=== PATIENT | male | born 1950 | race Caucasian/White ===

== ENCOUNTER → 2019-05-27 13:18 | Outpatient (CLI) | payer MEDICARE, SELFPAY ==
--- NOTE | 2019-05-27 13:26 | US_ITS ---
US Kidney CLINICAL INDICATION: Evaluate right renal lesions that were seen on recent CT scan ITS.REASON: RT KIDNEY LESION X2 ORDERING PHYSICIAN: Jeremy Cazares MD PATIENT AGE: 68 years Comparison: None FINDINGS: The right kidney is 12 x 7 x 5 cm. There is a 5 x 4 cm cyst along the upper pole. A 2 cm cyst is present along the mid polar region posteriorly along with an additional smaller cyst at this area at 9 mm. These areas correspond to the CT abnormalities. No hydronephrosis. The left kidney is 11 x 6 x 5 cm and contains a 1.5 cm cyst laterally. No hydronephrosis. IMPRESSION: Right renal lesions correspond to benign-appearing cysts by ultrasound
--- NOTE | 2019-05-27 13:27 | CT_ITS ---
CT chest wo con HISTORY: Colon cancer, evaluate for metastatic disease ITS.REASON: RECTOSIGMOID CA ORDERING PHYSICIAN: Jeremy Cazares MD PATIENT AGE: 68 years COMPARISON: None Technique: Axial images were obtained. Sagittal, and coronal reformatted images are also generated and reviewed. All CT scans at the facility use one or more dose reduction, viz: automated exposure control, ma/kV adjustment per patient size (including targeted exams where dose is matched to indication, i.e. head), or iterative reconstruction technique. FINDINGS: Atherosclerotic calcification is present within the thoracic aorta and coronary arteries. No mediastinal or hilar mass or adenopathy. There are scattered small nodes within the mediastinum. No mediastinal or hilar mass or adenopathy is evident. There are centrilobular emphysematous changes. No lobar consolidation or collapse. There is mild diffuse bronchial thickening. No suspicious pulmonary nodules. No effusions. There are few small axillary lymph nodes. No acute bony findings. No bony destructive process evident. There is mild bilateral gynecomastia. Upper abdominal images show a hyperdense nodule in the right kidney at 2 cm representing a renal cyst along with an additional 4 cm cyst of the right kidney posteriorly. A nonobstructing 3 mm stone in the upper pole the right kidney. IMPRESSION: 1. No convincing evidence of metastatic disease. 2. COPD/centrilobular emphysema. 3. Coronary artery calcifications 4. Right renal cysts with nonobstructing right nephrolithiasis
== END ==
PROVIDERS: PCP Family Medicine; Visit Provider Surgery
DX: C19 Malignant neoplasm of rectosigmoid junction (principal); N28.9 Disorder of kidney and ureter, unspecified; Z03.89 Encounter for observation for other suspected diseases and conditions ruled out
CPT/HCPCS: 71250; 76770

== ENCOUNTER 2020-07-22 08:27 | Emergency (ER) | payer MEDICARE, SELFPAY ==
[2020-07-22 08:30] VITALS: BP 188/101; PULSE 158; RESP 20; TEMP 37.4; O2SAT 98; BMI 25.4
--- NOTE | 2020-07-22 08:38 | HMH.EDGENADL ---
ED Disposition Clinical Impression: Urinary retention Urinary tract infection Qualifiers: Urinary tract infection type: site unspecified Hematuria presence: without hematuria Qualified Code(s): N39.0 - Urinary tract infection, site not specified Leukocytosis Qualifiers: Leukocytosis type: unspecified Qualified Code(s): D72.829 - Elevated white blood cell count, unspecified Disposition: Home, Self-Care Condition on Discharge: Fair Instructions: How to Care for Your Rodriguez Catheter -- Male, DI for Urinary Tract Infection (UTI) Additional Instructions: You were seen on an emergency basis. It is very important that you follow up with your primary care provider and/or specialist as we discussed within 2 days. All labs and imaging were obtained and interpreted here to rule out life threatening emergencies, but your final results should be reviewed by your primary doctor at your follow up appointment. Please return to the emergency department if any of your symptoms worsen, or if they do not improve as we discussed. Please follow-up in urology clinic as we discussed. Prescriptions: Cefdinir [Omnicef 300mg Capsule] 300 mg PO BID #20 cap Prescription Printed Referrals: Jair Molina MD [Primary Care Provider] - - Critical Care Critical Care Time: No Attestation: On , the high probability of a clinically significant, sudden or life threatening deterioration of the following system(s) required my full and direct attention, intervention and personal management. The time I documented below is in addition to time spent performing reported procedures but includes the following listed in this critical care notation. Medical Decision Making - Medical Records Medical records reviewed: Yes: I reviewed the patient's medical records. - Osmel Inquiry Pt receiving controlled substance: No Vital Signs: 07/22/20 08:30 Temperature 99.3 F Temperature Source Oral Pulse Rate [Right Radial] 158 H Respiratory Rate 20 Blood Pressure [Right Arm] 188/101 H Blood Pressure Mean [Right Arm] 130 Blood Pressure Source [Right Arm] Manual Cuff/ Doppler Blood Pressure Position [Right Arm] Standing 02 Sat by Pulse Oximetry 98 Oxygen Delivery Method Room Air - Lab Data Lab results reviewed: Yes: I reviewed the patient's lab results. Lab Results 07/22/20 09:30: WBC 18.3 H, RBC 5.24, Hgb 17.9, Hct 49.3, MCV 94.0, MCH 34.1 H, MCHC 36.3 H, RDW 13.9, Plt Count 226, MPV 7.8, Neut % (Auto) 88.5 H, Lymph % (Auto) 5.4 L, [place] % (Auto) 5.6, Eos % (Auto) 0.2, Baso % (Auto) 0.2, Neut # (Auto) 16.2 H, Lymph # (Auto) 1.0, [place] # (Auto) 1.0, Eos # (Auto) 0.0, Baso # (Auto) 0.1, Total Counted 100, Neutrophils % (Manual) 86 H, Lymphocytes % (Manual) 10, Monocytes % (Manual) 4, Platelet Estimate Normal, RBC Morphology Normal 07/22/20 09:30: Sodium 139, Potassium 3.7, Chloride 99, Carbon Dioxide 23, Anion Gap 20.7 H, BUN 10, Creatinine 0.70, Estimated Creat Clear 66, Estimated GFR 112, Est GFR ( Amer) 136, Glucose 174 H, Calcium 10.5 H, Total Bilirubin 2.7 H, AST 61 H, ALT 72, Alkaline Phosphatase 128 H, Total Protein 9.4 H, Albumin 5.0, Globulin 4.4 H, Albumin/Globulin Ratio 1.1 07/22/20 09:39: Urine Color Yellow, Urine Appearance Clear, Urine pH 6.0, Ur Specific Mcgregor 1.025, Urine Protein 2+, Urine Glucose (UA) Negative, Urine Ketones Negative, Urine Blood Negative, Urine Nitrate Negative, Urine Bilirubin Negative, Urine Urobilinogen 1.0, Ur Leukocyte Esterase Negative, Urine RBC None, Urine WBC 3-5, Ur Squamous Epith Cells Occasional, Amorphous Sediment 2+, Urine Bacteria 2+, Urine Mucus 1+ Result diagrams: 07/22/20 09:30 07/22/20 09:30 Orders (Tests/Meds): ORDERS Category Date Time Status Lactic Acid Stat Lab 07/22/20 10:09 Received Blood Culture Stat Micro 07/22/20 10:09 Received Urine Culture Stat Micro 07/22/20 09:39 Received Medical Decision Narrative: 69-year-old male presenting with inability to urinate. CT of the abdo
--- NOTE | 2020-07-22 08:48 | CT_ITS ---
PROCEDURE: CT ABDOMEN PELVIS WO CON CLINICAL INDICATION: R/O kidney stone COMPARISON: CT ABDPELW CT abdomen pelvis w con from 05/02/2019 TECHNIQUE: Axial images obtained with sagittal and coronal reformats. All CT scans at the facility use one or more dose reduction, viz: automated exposure control, ma/kV adjustment per patient size (including targeted exams where dose is matched to indication, i.e. head), or iterative reconstruction technique. FINDINGS: Lower thorax: No acute finding ABDOMEN: Liver: No masses or biliary dilatation. Gallbladder: Nondistended. No radio opaque stones. Pancreas: Cecectomy Spleen: The spleen is normal size and there are several small calcifications. Adrenals: unremarkable Kidneys/ureters: The kidneys are normal in size and there are 2 small exophytic cyst upper pole right kidney the smaller of the 2 cyst shows slightly increased density suggesting could be a hemorrhagic cyst. The larger of the 2 cysts measures 4.3 by 4.3 by 4.3 cm. There is mild vascular calcification in both renal arteries. There are 2 tiny 1 mm or less nonobstructing calculi left kidney and no ureteral calculi are seen and there is no obstructive uropathy of either kidney. There is moderate stranding of Gerotas fascia around both kidneys somewhat nonspecific not unexpected at this age. ABDOMEN & PELVIS: Stomach bowel: There is a small sliding hiatal hernia. The stomach is normal. The duodenal sweep and small bowel appear normal. There is a moderate amount stool in the ascending and transverse colon and proximal descending colon. There are surgical sutures in the upper rectum presumably from previous anastomotic surgery. Peritoneum: No abnormal fluid collections. No obvious inflammatory changes. No free air. Lymph nodes: No enlarged lymph nodes apparent. Vasculature: There is prominent diffuse arthrosclerotic calcification of the abdominal aorta and proximal common iliac arteries but there is no aneurysm. Bones: There are mild degenerate changes lower thoracic PELVIS: Reproductive: Spine. Bladder: The urinary bladder is moderately distended with urine, the prostate is moderately to markedly enlarged and shows prominent extrinsic impression on the base of the urinary bladder and very likely is the cause of the patient's difficulty urinating. Prostate measures 6.7 x 5.2 x 5.9 cm. Appendix: Unremarkable. No distention or periappendiceal phlegmonous change. IMPRESSION: Enlarged prostate showing marked extrinsic indentation of the base of the urinary bladder, benign-appearing exophytic cortical cysts right kidney, there is no obstructive uropathy of either kidney Dictated by: Dr. Kong Enriquez MD 07/22/2020 09:55 Dr. Kong Enriquez MD in [place] 07/22/2020 09:55
--- NOTE | 2020-07-22 08:55 | PC.NURSE ---
Pt attempted to provide a clean catch urine sample prior to matt placement, but pt was unsuccessful. Matt will be placed after pt gets CT
--- NOTE | 2020-07-22 08:58 | PC.NURSE ---
pt going to ct
--- NOTE | 2020-07-22 09:01 | PC.NURSE ---
Pt to Rad. Nolasco was unsuccessful x2 on iv insertion. This nurse will attempt to gain access once pt returns to ED
[2020-07-22 09:43] LABS: Basophils # 0.1 K/mm3 (0-0.2); Basophils % 0.2 % (0.1-2.0); Eosinophils % 0.2 % (0.1-12.0); Hematocrit 49.3 % (42.0-52.0); Hemoglobin 17.9 g/dL (14.1-18.0); Lymphocytes % 5.4 % (10-50); Mean Corpuscular HGB Conc 36.3 g/dL (31.8-35.4); Mean Corpuscular Hemoglobin 34.1 pg (27.0-31.2); Mean Platelet Volume 7.8 fl (7.4-10.4); Monocytes % 5.6 % (1.7-9.3); Neutrophils # 16.2 K/mm3 (1.8-7.8); Neutrophils % 88.5 % (37.0-80.0); Platelet Count 226 K/mm3 (142-424); Red Blood Count 5.24 M/mm3 (4.60-6.20); Red Cell Distribution Width 13.9 % (11.5-17.5); White Blood Count 18.3 K/mm3 (4.8-10.8)
[2020-07-22 09:43] LABS: Microscopic, Urine URINE MICROSCOPIC (MICROSCOPIC)
[2020-07-22 09:44] LABS: Appearance,Urine CLEAR (Clear); Bilirubin,Urine Negative (Negative); Blood, Urine Negative (Negative); Color,Urine YELLOW (Yellow); Glucose,Urine (UA) Negative (Negative); Ketones,Urine Negative (Negative); Leukocyte Esterase,Urine Negative (Negative); Nitrate,Urine Negative (Negative); Protein,Urine 2+ (Negative); Specific Gravity, Urine 1.025 (1.005-1.030)
[2020-07-22 09:45] LABS: MANUAL DIFFERENTIAL MANUAL DIFFERENTIAL (MANUAL DIFF)
[2020-07-22 09:46] LABS: Chloride 99 mmol/L (98-107); Potassium 3.7 mmoL/L (3.5-5.1); Sodium 139 mmol/L (136-145)
[2020-07-22 09:48] LABS: Blood Urea Nitrogen 10 mg/dl (9-20); Creatinine Clearance Estimated 66 mL/min (50-200); Estimated Glomerular Filt Rate 112 ml/min (>60); GFR (African American) 136 ML/MIN (>60)
--- NOTE | 2020-07-22 09:48 | PC.NURSE ---
Pt states that he has relief in the suprapubic pressure he was feeling prior to matt placement. Pt had 500cc urine out upon matt placement.
[2020-07-22 09:49] LABS: Alanine Aminotransferase 72 U/L (12-78); Albumin/Globulin Ratio 1.1 (1.1-1.8); Alkaline Phosphatase 128 U/L (38-126); Anion Gap 20.7 mEq/L (5-15); Aspartate Amino Transferase 61 U/L (17-59); Bilirubin,Total 2.7 mg/dl (0.2-1.3); Calcium 10.5 mg/dl (8.4-10.2); Carbon Dioxide 23 mmol/L (22.0-30.0); Globulin 4.4 g/dL (1.3-3.2); Glucose 174 mg/dl (74-100); Total Protein,Serum 9.4 g/dl (6.3-8.2)
[2020-07-22 09:54] LABS: Amorphous Sediment,Urine 2+ /lpf; Bacteria,Urine 2+ /lpf; Mucus,Urine 1+ /lpf; Squamous Epithelial Cell,Urine Occasional #/hpf (0-5)
[2020-07-22 10:02] LABS: Lymphocytes % 10 % (10-50); Monocytes % 4 % (2-9); Neutrophils % 86 % (42-76); Platelet Estimate Normal; RBC Morphology Normal; Total Cells Counted 100
[2020-07-22 10:26] LABS: Lactic Acid 1.7 mmol/L (0.7-2.1)
[2020-07-22 10:55] VITALS: BP 132/97; PULSE 81; RESP 18; TEMP 37.2; O2SAT 97
== END 2020-07-22 11:03 | disposition home or self-care (01) ==
PROVIDERS: Emergency Provider Physician Assistant; PCP Family Medicine
DX: N30.00 Acute cystitis without hematuria (principal); D72.829 Elevated white blood cell count, unspecified; J44.9 Chronic obstructive pulmonary disease, unspecified; K21.9 Gastro-esophageal reflux disease without esophagitis; E78.5 Hyperlipidemia, unspecified; I10 Essential (primary) hypertension; Z79.899 Other long term (current) drug therapy; Z90.49 Acquired absence of other specified parts of digestive tract; N40.0 Benign prostatic hyperplasia without lower urinary tract symptoms; Z85.46 Personal history of malignant neoplasm of prostate
CPT/HCPCS: 74176; 80053; 81001; 83605; 85007; 85025; 87040; 87086; 87088; 87186; 99284

== ENCOUNTER 2020-07-23 13:52 | Emergency (ER) | payer MEDICARE, SELFPAY ==
[2020-07-23 14:34] VITALS: BP 134/84; PULSE 121; RESP 19; TEMP 36.8; O2SAT 98; BMI 25.4
--- NOTE | 2020-07-23 14:43 | HMH.EDUTC ---
[facility] [place] Clinical Impression: Urinary retention UTI (urinary tract infection) Qualifiers: Urinary tract infection type: site unspecified Hematuria presence: without hematuria Qualified Code(s): N39.0 - Urinary tract infection, site not specified Disposition: Home, Self-Care Condition on Discharge: Good Instructions: How to Care for Your Matt Catheter -- Male Additional Instructions: Follow up with Dr. Molina as scheduled tomorrow. Follow up with urology as referred. You will need to call their office and schedule an appointment. RETURN OR GO TO THE ER FOR ANY WORSENING SYMPTOMS OR CONCERNS Referrals: Jair Molina MD [Primary Care Provider] - Asad Ortiz MD [Staff Physician] - Time of Disposition: 14:56 Medical Decision Making - Medical Records Medical records reviewed: No: I reviewed the patient's medical records. - Osmel Inquiry Pt receiving controlled substance: No Vital Signs: 07/23/20 14:34 07/23/20 15:00 Temperature 98.2 F 98.2 F Temperature Source Oral Pulse Rate 121 H Pulse Rate [Right Brachial] 121 H Respiratory Rate 19 19 Blood Pressure 134/84 Blood Pressure [Right Arm] 134/84 Blood Pressure Mean [Right Arm] 100 Blood Pressure Source [Right Arm] Automatic Cuff Blood Pressure Position [Right Arm] Sitting 02 Sat by Pulse Oximetry 98 Oxygen Delivery Method Room Air Medical Decision Narrative: I assessed and made sure the f/c is draining properly. I explained to him that if we take the catheter out today then he will likely get unable to urinate again soon and have to come back in and have the catheter reinserted. So it is best to leave it in for now. He is verbally agreeable to this plan. [facility] [place] - General Stated complaint: catheter problems Time Seen by Provider: 07/23/20 14:35 Mode of Arrival: Ambulatory Source of Information: Patient Limitations: No Limitations Description of Symptoms (Recalled from Triage Doc. by RN): PATIENT HAD URINARY CATHETER PLACE IN ER YESTERDAY FOR UTI. STATES CATHETER IS LEAKING AND WANTS IT REMOVED HEENT Symptoms (Recalled from RN notes): No Resp Symptoms (Recalled from RN notes): No Skin Symptoms (Recalled from RN notes): No MS Symptoms (Recalled from RN notes): No Functional Status (Recalled from RN notes): WNL - History of Present Illness Provider Complaint: He is here wanting to have a matt cath removed. He was in the ER yesterday with complaints of being unable to void. He was diagnosed with a UTI and an enlarged prostate. A matt cath was inserted. He has f/u appt tomorrow with Dr. Molina and the er referred him to urology. - Related Data Home Medications Medication Instructions Recorded Confirmed Omeprazole [Omeprazole 20mg 20 mg PO DAILY 04/27/19 05/02/19 Capsule] Simvastatin 40 mg PO DAILY 04/27/19 05/02/19 Theophylline Anhydrous [Theochron] 300 mg PO DAILY 04/27/19 05/02/19 lisinopriL [Lisinopril 20mg Tab] 20 mg PO DAILY 04/27/19 05/02/19 Previous Rx's Medication Instructions Recorded Cefdinir [Omnicef 300mg Capsule] 300 mg PO BID #20 cap 07/22/20 Allergies Allergy/AdvReac Type Severity Reaction Status Date / Time No Known Allergies Allergy Verified 05/02/19 07:03 - Worker's Comp Is this a Worker's Comp case?: No [facility] History - Hepatitis A Screen Drug use history?: No High risk sexual behaviors?: No History of sexually transmitted infection?: No Currently employed?: No Childcare worker?: No Do you have indoor plumbing?: Yes Do you have electricity?: Yes Attestation statement:: This patient has been screened for Hepatitis A risk factors. I have reviewed the patient's past medical history: Yes Medical History: Reports:: Cancer (COLON), Chronic Obstructive Pulmonary Disease (COPD), Gastroesophageal Reflux Disease(GERD), Hyperlipidemia, Hypertension Denies:: Diabetes Mellitus Type 1, Diabetes Mellitus Type 2, Internal Pacemaker, Lung Disease, Seizures Other Surgeries
[2020-07-23 15:00] VITALS: BP 134/84; PULSE 121; RESP 19; TEMP 36.8; O2SAT 98
== END 2020-07-23 15:02 | disposition home or self-care (01) ==
PROVIDERS: Emergency Provider Nurse Practitioner Family; PCP Family Medicine
DX: T83.511A Infection and inflammatory reaction due to indwelling urethral catheter, initial encounter (principal); N40.1 Benign prostatic hyperplasia with lower urinary tract symptoms; K21.9 Gastro-esophageal reflux disease without esophagitis; I10 Essential (primary) hypertension; J44.9 Chronic obstructive pulmonary disease, unspecified; E78.5 Hyperlipidemia, unspecified; Z90.49 Acquired absence of other specified parts of digestive tract; Z87.891 Personal history of nicotine dependence; Z79.899 Other long term (current) drug therapy
CPT/HCPCS: G0463; 99201

== ENCOUNTER 2020-11-21 12:51 | Outpatient (CLI) | payer MEDICARE, SELFPAY ==
[2020-11-21 13:12] VITALS: BMI 25.7
[2020-11-21 13:29] LABS: Microscopic, Urine URINE MICROSCOPIC (MICROSCOPIC)
[2020-11-21 13:35] LABS: Appearance,Urine CLEAR (Clear); Bilirubin,Urine Negative (Negative); Blood, Urine TRACE-I (Negative); Color,Urine YELLOW (Yellow); Glucose,Urine (UA) Negative (Negative); Ketones,Urine Negative (Negative); Leukocyte Esterase,Urine Negative (Negative); Nitrate,Urine Negative (Negative); Protein,Urine 1+ (Negative); Squamous Epithelial Cell,Urine Occasional #/hpf (0-5); Urobilinogen,Urine 0.2 EU/dl (0.2)
== END 2020-11-21 13:30 | disposition home or self-care (01) ==
LOC: INF 12:53
PROVIDERS: PCP Family Medicine; Visit Provider Family Medicine
DX: R33.9 Retention of urine, unspecified (principal)
CPT/HCPCS: 81001; G0463

== ENCOUNTER 2023-06-20 02:15 | Emergency (ER) | payer MEDICARE, SELFPAY ==
[2023-06-20 02:16] VITALS: BP 210/105; PULSE 110; RESP 18; TEMP 36.5; O2SAT 98; BMI 22.3
--- NOTE | 2023-06-20 02:26 | PC.NURSE ---
DR PETIT AT BEDSIDE
--- NOTE | 2023-06-20 02:36 | CT_ITS ---
PROCEDURE INFORMATION: Exam: CT Abdomen And Pelvis With Contrast Exam date and time: 06/20/2023 3:27 AM Age: 72 years old Clinical indication: Mass, lump, or swelling; Additional info: Previous llq mass, hematochezia TECHNIQUE: Imaging protocol: Computed tomography of the abdomen and pelvis with contrast. Radiation optimization: All CT scans at this facility use at least one of these dose optimization techniques: automated exposure control; mA and/or kV adjustment per patient size (includes targeted exams where dose is matched to clinical indication); or iterative reconstruction. Contrast material: ISOVUE; Contrast volume: 75 ml; Contrast route: IV; REPORTING DATA: Count of CT and Cardiac NM exams in prior 12 months: This patient has received 0 known CTs and 0 known cardiac nuclear medicine studies in the 12 months prior to the current study. COMPARISON: CT ABDOMEN PELVIS WO CON 07/22/2020 9:06 AM FINDINGS: Liver: Normal. No mass. Gallbladder and bile ducts: Prior cholecystectomy. Pancreas: Normal. No ductal dilation. Spleen: Normal. No splenomegaly. Adrenal glands: Normal. No mass. Kidneys and ureters: Simple appearing exophytic right upper pole renal cyst. Stable hyperdense midpole renal cysts on the right. Simple stable left midpole cyst. Stomach and bowel: Moderate retained stool throughout the colon. Concentric thickening of the rectum is identified. Portion of this is calcified. Some adjacent edema is noted. Appendix: No evidence of appendicitis. Intraperitoneal space: Unremarkable. No free air. No significant fluid collection. Vasculature: Unremarkable. No abdominal aortic aneurysm. Lymph nodes: Some small perirectal lymph nodes are identified. Urinary bladder: Unremarkable as visualized. Reproductive: The prostate is diffusely enlarged. Bones/joints: Unremarkable. No acute fracture. Soft tissues: Unremarkable. IMPRESSION: 1. Concentric thickening of the rectum with adjacent adenopathy and edema worrisome for underlying neoplasm, correlation with colonoscopy recommended. 2. Bilateral renal cysts some of which are dense unchanged from prior study. COMMENTS: Consistent with the [employer]'s Incidental Findings Committee white paper (J Am Dominic Radiol 2018): Any incidental renal lesion less than 1 cm or classified as too small to characterize, or any incidental cystic renal lesion characterized as simple-appearing, is likely benign. No follow-up imaging is recommended for these lesions per consensus recommendations based on imaging criteria.
--- NOTE | 2023-06-20 02:45 | HMH.EDGENADL ---
Discharge Plan Disposition Patient Disposition: Home, Self-Care Condition: Fair Chief Complaint: GI Bleed Prescriptions Prescriptions: No Action lisinopril 20 MG tablet 20 mg PO DAILY simvastatin 40 MG tablet 40 mg PO DAILY theophylline 300 MG tablet extended release 12 hr 300 mg PO DAILY omeprazole 20 MG capsule,delayed release(DR/EC) 20 mg PO DAILY cefdinir 300 MG capsule 300 mg PO BID Qty: 20 0RF Referrals Follow up/Referrals: Margaret Montano APRN [Primary Care Provider] - See instructions Activity Restrictions/Add. Instructions Additional Instructions/Restrictions: It was recommended that you be transferred to another hospital [facility] [place] for colorectal surgery evaluation as I am concerned for recurrence of your colorectal cancer. Please follow-up as soon as you are able with your family doctor and call and schedule an appointment with colorectal surgery as soon as possible. If you are unable to do so please do not hesitate to return the emergency department for continued evaluation and transfer. If new or worsening symptoms please do not hesitate to return the emergency department. Clinical Impressions Clinical Impression: Colon wall thickening, Pelvic lymphadenopathy, Acute lower gastrointestinal bleeding Instructions Patient Instructions: DI for Gastrointestinal Bleeding Discharge ED Provider: Stanley Mccurdy General Adult HPI General Chief complaint: GI Bleed Stated complaint: blood in stool Time Seen by Provider: 06/20/23 02:28 Mode of Arrival: Ambulatory Limitations: No Limitations Description of Symptoms (Recalled from ER Triage Doc. by RN): PT REPORTS 2-3 EPISODES OF BRIGHT RED BLOODY STOOL THIS AM History of Present Illness HPI narrative: Patient is a 72-year-old male with past medical history of hypertension, hyperlipidemia, GERD, COPD not on home oxygen colonic polyps status postresection who presents emergency department for evaluation of blood in his stool. Onset was acute, occurring earlier this evening. Patient has had 3 episodes of large blood around a formed stool. Patient states that previously in 2019 he had polyps and was referred to where he had some of them removed. 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 scan conducted in 2020 shows surgical sutures in the upper rectum presumably from anastomotic surgery. Unfortunately the case was discussed with [facility] for clarification however due to a switch in their EMR and it being the weekend they were unable to facilitate record transfer at this time. Patient denies abdominal pain, chest pain, anticoagulants. Related Data Home Medications Medication Instructions Recorded Confirmed lisinopril 20 mg tablet 20 mg PO DAILY blood pressure 04/27/19 06/10/22 omeprazole 20 mg capsule,delayed 20 mg PO DAILY GERD 04/27/19 06/10/22 release simvastatin 40 mg tablet 40 mg PO DAILY Cholesterol 04/27/19 06/10/22 theophylline 300 mg 300 mg PO DAILY Breathing problems 04/27/19 06/10/22 tablet,extended release,12 hr Previous Rx's Medication Instructions Recorded cefdinir 300 mg capsule 300 mg PO BID #20 caps 07/22/20 Allergies Allergy/AdvReac Type Severity Reaction Status Date / Time No Known Allergies Allergy Verified 06/10/22 09:04 [facility] Disclaimer: The information contained in this section may have been updated after the patient was seen, as this information can be updated by other users. Social History Smoking Status: Former smoker alcohol intake: never substance use type: denies use current occupational status: other Travel in the last 8 weeks: None household members: none housing: house caffeine: No
[2023-06-20 02:46] VITALS: BP 182/81; PULSE 96; O2SAT 97
[2023-06-20 03:00] VITALS: BP 192/77; PULSE 86; O2SAT 96
[2023-06-20 03:03] LABS: Basophils % 0.2 % (0.1-2.0); Eosinophils # 0.2 K/mm3 (0.0-0.4); Eosinophils % 3.1 % (0.1-12.0); Hematocrit 40.3 % (42.0-52.0); Hemoglobin 12.8 g/dL (14.1-18.0); Lymphocytes # 2.1 K/mm3 (0.7-4.5); Lymphocytes % 27.8 % (10-50); Mean Corpuscular HGB Conc 31.8 g/dL (31.8-35.4); Mean Corpuscular Hemoglobin 26.4 pg (27.0-31.2); Mean Platelet Volume 8.2 fl (7.4-10.4); Monocytes # 0.4 K/mm3 (0.1-1.0); Monocytes % 5.7 % (1.7-9.3); Neutrophils # 4.8 K/mm3 (1.8-7.8); Neutrophils % 63.3 % (37.0-80.0); Platelet Count 189 K/mm3 (142-424); Red Blood Count 4.86 M/mm3 (4.60-6.20); Red Cell Distribution Width 14.5 % (11.5-17.5); White Blood Count 7.6 K/mm3 (4.8-10.8)
[2023-06-20 03:09] LABS: Chloride 106 mmol/L (98-107); Potassium 4.9 mmoL/L (3.5-5.1); Sodium 143 mmol/L (136-145)
[2023-06-20 03:12] LABS: Alanine Aminotransferase 24 U/L (12-78); Albumin Level 4.8 g/dl (3.5-5.0); Albumin/Globulin Ratio 1.3 (1.1-1.8); Alkaline Phosphatase 127 U/L (38-126); Anion Gap 15.9 mEq/L (5-15); Aspartate Amino Transferase 39 U/L (17-59); Bilirubin,Total 0.9 mg/dl (0.2-1.3); Blood Urea Nitrogen 13 mg/dl (9-20); Calcium 10.2 mg/dl (8.4-10.2); Carbon Dioxide 26 mmol/L (22.0-30.0); Creatinine Clearance Estimated 54 mL/min (50-200); Estimated Glomerular Filt Rate 111 ml/min (>60); GFR (African American) 135 ML/MIN (>60); Globulin 3.8 g/dL (1.3-3.2); Glucose 117 mg/dl (74-100); Total Protein,Serum 8.6 g/dl (6.3-8.2)
[2023-06-20 03:13] LABS: INR 1.06 (0.9-1.1); Prothrombin Time 11.4 seconds (10.1-12.5)
--- NOTE | 2023-06-20 03:23 | PC.NURSE ---
Patient gone to CT at this time.
[2023-06-20 03:32] LABS: Occult Blood,Stool Positive (Negative)
--- NOTE | 2023-06-20 04:11 | PC.NURSE ---
dr richardson at bedside to update pt
--- NOTE | 2023-06-20 04:21 | PC.NURSE ---
REINFORCED TO PT, SEE COLO-RECTAL SURGEON KANNAN. PT V/U ALONG WITH ALL DISCHARGE TEACHING
[2023-06-20 04:27] VITALS: BP 198/88; PULSE 98; RESP 18; TEMP 36.6; O2SAT 98
== END 2023-06-20 04:28 | disposition home or self-care (01) ==
PROVIDERS: Emergency Provider Emergency Medicine; PCP Nurse Practitioner Family
DX: K92.2 Gastrointestinal hemorrhage, unspecified (principal); I10 Essential (primary) hypertension; E78.5 Hyperlipidemia, unspecified; K21.9 Gastro-esophageal reflux disease without esophagitis; J44.9 Chronic obstructive pulmonary disease, unspecified; Z87.891 Personal history of nicotine dependence
CPT/HCPCS: 74177; 80053; 82272; 85025; 85610; 86850; 96360; 99285; G0328; Q9967

== ENCOUNTER 2023-06-20 08:20 | Emergency (ER) | payer MEDICARE, SELFPAY ==
[2023-06-20 08:25] VITALS: BP 178/89; PULSE 139; RESP 20; TEMP 36.7; O2SAT 97; BMI 21.6
--- NOTE | 2023-06-20 08:30 | PC.NURSE ---
Dr Justice at bedside.
--- NOTE | 2023-06-20 08:31 | PC.NURSE ---
Addendum entered by Brenda Veronica RN 06/20/23 08:42: aware at 0882 Original Note: bladder scan resulted 593ml in bladder
--- NOTE | 2023-06-20 08:39 | HMH.EDGENADL ---
Discharge Plan Disposition Patient Disposition: Home, Self-Care Prescriptions Prescriptions: No Action lisinopril 20 MG tablet 20 mg PO DAILY simvastatin 40 MG tablet 40 mg PO DAILY theophylline 300 MG tablet extended release 12 hr 300 mg PO DAILY omeprazole 20 MG capsule,delayed release(DR/EC) 20 mg PO DAILY cefdinir 300 MG capsule 300 mg PO BID Referrals Follow up/Referrals: Margaret Montano APRN [Primary Care Provider] - See instructions Activity Restrictions/Add. Instructions Additional Instructions/Restrictions: Follow-up with your primary care doctor in 1 to 2 weeks for a voiding trial to have the catheter removed. Return with any worsening symptoms or concerns. Clinical Impressions Clinical Impression: Urinary retention Instructions Patient Instructions: DI for Urinary Tract Infection (UTI), DI for Urinary Tract Infection in Children Discharge ED Provider: Nellie Justice General Adult HPI General Chief complaint: Urogenital-Male Stated complaint: trouble using the restroom Time Seen by Provider: 06/20/23 08:28 Mode of Arrival: Ambulatory Source of Information: Patient Limitations: No Limitations Description of Symptoms (Recalled from ER Triage Doc. by RN): pt states he was seen in our ER this morning at 2:30am for blood in his stool and he was discharged around 4:30am, he states he didn't have any issues while he was here but since going home he has been unable to void, states he only has pain and discomfort when he gets the urge to void and has muscle spams, denies any other symptoms History of Present Illness HPI narrative: Patient is a 72-year-old male with a history of BPH on tamsulosin presents today with urinary retention. States he was in the ED last night was discharged at 2:30 AM I reviewed his note he was here for lower GI bleeding with stable and advised to follow-up. Since that time he has been unable to urinate. He has significant suprapubic pressure. States this happened several years ago but has not had any issues with it since that time. Denies any fevers chills. Additionally he had a creatinine that was done just several hours ago which was normal. Did not have any preceding dysuria frequency urgency burning or hematuria. Related Data Home Medications Medication Instructions Recorded Confirmed lisinopril 20 mg tablet 20 mg PO DAILY blood pressure 04/27/19 06/20/23 omeprazole 20 mg capsule,delayed 20 mg PO DAILY GERD 04/27/19 06/20/23 release simvastatin 40 mg tablet 40 mg PO DAILY Cholesterol 04/27/19 06/20/23 theophylline 300 mg 300 mg PO DAILY Breathing problems 04/27/19 06/20/23 tablet,extended release,12 hr cefdinir 300 mg capsule 300 mg PO BID . 06/20/23 06/20/23 Allergies Allergy/AdvReac Type Severity Reaction Status Date / Time No Known Allergies Allergy Verified 06/20/23 08:33 [facility] Disclaimer: The information contained in this section may have been updated after the patient was seen, as this information can be updated by other users. Social History Smoking Status: Never smoker alcohol intake: never substance use type: denies use current occupational status: other Travel in the last 8 weeks: None household members: none housing: house caffeine: No ROS Obtained: Yes All systems reviewed & no additional complaints except as documented Physical Exam General General appearance: alert and other (And slight discomfort) Respiratory Respiratory exam: Present normal lung sounds bilaterally Cardiovascular Cardiovascular exam: Present regular rate Abdominal Exam Abdominal exam: Present soft and distention (Suprapubic distention and tenderness) Neurological Exam Neurological exam: Present alert and oriented X3 Medical Decision Making Osmel Inquiry Pt receiving controlled substance: No Vital Signs: 06/20/23 08:25 Temperature 98.1 F Temperature Source Oral Pulse Rate [Right Radial] 139 H
--- NOTE | 2023-06-20 08:42 | PC.NURSE ---
matt inserted per MD order, pt tolerated well, 400cc in drainage bag at this time. aware
[2023-06-20 08:51] LABS: Appearance,Urine CLEAR (Clear); Bilirubin,Urine Negative (Negative); Blood, Urine TRACE-I (Negative); Color,Urine YELLOW (Yellow); Glucose,Urine (UA) Negative (Negative); Ketones,Urine Negative (Negative); Leukocyte Esterase,Urine Negative (Negative); Microscopic, Urine URINE MICROSCOPIC (MICROSCOPIC); Nitrate,Urine Negative (Negative); PH,Urine 6.5 (5.0-8.5); Protein,Urine Negative (Negative); Specific Gravity, Urine <= 1.005 (1.005-1.030); Urobilinogen,Urine 0.2 EU/dl (0.2)
--- NOTE | 2023-06-20 08:51 | PC.NURSE ---
switched cath bag to a leg bag.
[2023-06-20 08:53] VITALS: BP 157/88; PULSE 107; RESP 18; TEMP 36.8; O2SAT 98
[2023-06-20 08:53] LABS: WBC,Urine Occasional #/hpf (0-3)
== END 2023-06-20 08:53 | disposition home or self-care (01) ==
PROVIDERS: Emergency Provider Student in an Organized Health Care Education/Training Program; PCP Nurse Practitioner Family
DX: N40.1 Benign prostatic hyperplasia with lower urinary tract symptoms (principal); R33.9 Retention of urine, unspecified
CPT/HCPCS: 51702; 74177; 80053; 81001; 82272; 85025; 85610; 86850; 96360; 99283; 99285; G0328; Q9967

== ENCOUNTER 2024-03-22 21:56 | Emergency (ER) | payer MEDICARE, SELFPAY ==
[2024-03-22 21:57] VITALS: BP 186/70; PULSE 125; RESP 20; TEMP 36.8; O2SAT 98; BMI 20.3
--- NOTE | 2024-03-22 22:13 | ED_ITS ---
Discharge Plan Disposition Patient Disposition: Xfer Other Prescriptions Prescriptions: No Action lisinopril 20 MG tablet 20 mg PO DAILY simvastatin 40 MG tablet 40 mg PO DAILY theophylline 300 MG tablet extended release 12 hr 300 mg PO DAILY omeprazole 20 MG capsule,delayed release(DR/EC) 20 mg PO DAILY cefdinir 300 MG capsule 300 mg PO BID Referrals Follow up/Referrals: Provider,Referral, MD [Primary Care Provider] - See instructions Clinical Impressions Clinical Impression: Abscess of rectum, Urinary retention, Rectal mass, Acute hypokalemia, Hypomagnesemia Stand Alone Forms Stand Alone Forms: Transfer Record - ED Instructions Patient Instructions: DI for Urinary Tract Infection (UTI), DI for Urinary Tract Infection in Children Discharge ED Provider: Jorge Alberto Resendiz Adult HPI <KEILA Lipscomb - Last Filed: 03/22/24 22:50> General Chief complaint: Urogenital-Male Stated complaint: cannot pee Time Seen by Provider: 03/22/24 22:07 History of Present Illness HPI narrative: Patient presents for being able to pee. Patient states that he does not know if he has an enlarged prostate but has been unable to urinate since this afternoon. He reports no trauma or triggering event he denies chest pain shortness of breath fever chills hemoptysis hematochezia melena nausea vomit diarrhea. Stated he does not currently have a PCP. Related Data Home Medications Medication Instructions Recorded Confirmed lisinopril 20 mg tablet 20 mg PO DAILY blood pressure 04/27/19 06/20/23 omeprazole 20 mg capsule,delayed 20 mg PO DAILY GERD 04/27/19 06/20/23 release simvastatin 40 mg tablet 40 mg PO DAILY Cholesterol 04/27/19 06/20/23 theophylline 300 mg 300 mg PO DAILY Breathing problems 04/27/19 06/20/23 tablet,extended release,12 hr cefdinir 300 mg capsule 300 mg PO BID . 06/20/23 06/20/23 Allergies Allergy/AdvReac Type Severity Reaction Status Date / Time No Known Allergies Allergy Verified 06/20/23 08:33 PFSH <KEILA Lipscomb - Last Filed: 03/22/24 22:50> [facility] Disclaimer: The information contained in this section may have been updated after the patient was seen, as this information can be updated by other users. Social History Smoking Status: Current every day smoker tobacco type: cigarettes alcohol intake: never substance use type: denies use current occupational status: other Travel in the last 8 weeks: None household members: none housing: house caffeine: No <KEILA Lipscomb - Last Filed: 03/22/24 22:50> ROS Obtained: Yes Systems reviewed as appropriate & no additional complaints except as documented Physical Exam <KEILA Lipscomb - Last Filed: 03/22/24 22:50> General General appearance: alert and in no apparent distress Head Head exam: atraumatic Eye Eye exam: Present normal appearance and EOMI ENT ENT exam: Present normal exam Neck Neck exam: Present normal inspection Chest Chest inspection: Present normal inspection Respiratory Respiratory exam: Present normal lung sounds bilaterally Cardiovascular Cardiovascular exam: Present tachycardia and normal heart sounds Abdominal Exam Abdominal exam: Present soft, tenderness, rigidity and normal bowel sounds; Absent guarding or rebound Abdominal tenderness: Present suprapubic Extremities Exam Extremities exam: Present normal inspection Back Exam Back exam: Present normal inspection, CVA tenderness (R) and CVA tenderness (L) Neurological Exam Neurological exam: Present alert and oriented X3 Medical Decision Making <KEILA Lipscomb - Last Filed: 03/22/24 22:50> Medical Records Medical records reviewed: Yes I reviewed the patient's medical records. Osmel Ba Pt receiving controlled substance: No Vital Signs: 03/22/24 21:57 03/23/24 00:15 03/23/24 01:05 Temperature 98.3 F 98.3 F 98.3 F Temperature Source Oral Oral Oral Pulse Rate 101 H 105 H Pulse Rate [Left] 125 H Respiratory Rate 20 14 16 Blood Pressure 157/65 H 165/68 H Blood Pressure [Right Arm] 186/70 H Blood Pressure Mean [Right Arm] 108 Blood Pressure Source Blood Pressure Source [Right Arm] Automatic Cuff Blood Pressure Position Supine Supine Blood Pressure Position [Right Arm] Supine 02 Sat by Pulse Oximetry 98 98 96 Oxygen Delivery Method Room Air Room Air Room Air 03/23/24 02:13 03/23/24 03:02 Temperature 98.3 F Temperature Source Oral Pulse Rate 110 H 102 H Pulse Rate [Left] Respiratory Rate 16 16 Blood Pressure 165/69 H 168/74 H Blood Pressure [Right Arm] Blood Pressure Mean [Right Arm] Blood Pressure Source Automatic Cuff Blood Pressure Source [Right Arm] Blood Pressure Position Supine Supine Blood Pressure Position [Right Arm] 02 Sat by Pulse Oximetry 96 Oxygen Delivery Method Room Air Room Air Lab Data Lab results reviewed: Yes I reviewed the patient's lab results. Lab Results 03/22/24 22:18: Urine Color Yellow, Urine Appearance Clear, Urine pH 6.0, Ur Specific Ridg[place] 1.020, Urine Protein Negative, Urine Glucose (UA) Negative, Urine Ketones Negative, Urine Blood Negative, Urine Nitrate Negative, Urine Bilirubin Negative, Urine Urobilinogen 4.0, Ur Leukocyte Esterase Negative, Urine RBC None, Urine WBC Occasional, Ur Squamous Epith Cells None, Urine Bacteria None 03/22/24 22:25: WBC 17.2 H, RBC 4.26 L, Hgb 9.5 L, Hct 30.8 L, MCV 72.2 L, MCH 22.2 L, MCHC 30.7 L, RDW 17.2, Plt Count 402, MPV 6.9 L, Neut % (Auto) 89.2 H, L ymph % (Auto) 6.8 L, Johnston % (Auto) 3.7, Eos % (Auto) 0.1, Baso % (Auto) 0.1, N eut # (Auto) 15.3 H, Lymph # (Auto) 1.2, Johnston # (Auto) 0.6, Eos # (Auto) 0.0, Baso # (Auto) 0.0, Total Counted 100, Neutrophils % (Manual) 87 H, Lymphocytes % (Manual) 8 L, Monocytes % (Manual) 5, Platelet Estimate Normal, Hypochromasia 2+, Microcytosis 1+, Ovalocytes 1+, Sodium 134 L, Potassium 3.1 L, Chloride 100, Carbon Dioxide 22, Anion Gap 15.1 H, BUN 7 L, Creatinine 0.60 L, Estimated Creat Clear 50, Estimated GFR 133, Est GFR ( Amer) 161, Glucose 131 H, Calcium 9.1, Magnesium 1.2 L, Total Bilirubin 1.0, AST 27, ALT 22, Alkaline Phosphatase 249 H, Troponin I < 0.01, Total Protein 6.4 D, Albumin 3.1 L, Globulin 3.3 H, A lbumin/Globulin Ratio 0.9 L, TSH 1.72 03/22/24 22:25 03/22/24 22:25 Orders (Tests/Meds): ED MEDICATIONS Discontinued Medications Generic Name Dose Route Start Last Admin Trade Name Saadia PRN Reason Stop Dose Admin Acetaminophen 1,000 mg 03/22/24 22:15 03/22/24 22:30 Acetaminophen 1,000mg/100ml Vial IV 03/22/24 22:16 Not Given ONCE ONE Magnesium Sulfate 2 gm in 50 mls @ 50 mls/hr 03/22/24 23:42 03/22/24 23:49 Magnesium Sulfate 2gm/50ml Premix IV 03/23/24 00:41 50 mls/hr ONCE ONE Administration Piperacillin Sod/Tazobactam 100 mls @ 200 mls/hr 03/23/24 01:26 03/23/24 01:55 Sod 4.5 gm/ Sodium Chloride IV 03/23/24 01:55 200 mls/hr ONCE ONE Administration Iopamidol 75 ml 03/22/24 23:23 03/22/24 23:24 Iopamidol-370 (76%);100ml Bottle IV 03/22/24 23:24 75 ml ONCE ONE Administration Ketorolac Tromethamine 15 mg 03/22/24 22:15 03/22/24 22:29 Ketorolac 30mg/Ml Vial IV 03/22/24 22:16 15 mg ONCE ONE Administration Potassium Chloride 40 meq 03/22/24 23:42 03/22/24 23:49 Potassium Chloride 20meq Tab PO 03/22/24 23:43 40 meq ONCE ONE Administration Sodium Chloride 10 ml 03/22/24 23:23 03/22/24 23:24 Sodium Chloride 0.9% 10ml Syr (Rad Only) IV 03/22/24 23:24 10 ml ONCE ONE Administration Tamsulosin HCl 0.4 mg 03/22/24 21:00 03/22/24 22:29 Tamsulosin 0.4mg Capsule PO 03/22/24 21:01 0.4 mg ONCE ONE Administration ORDERS Category Date Time Status CT abdomen pelvis w con Stat Cat Scan 03/22/24 22:16 Completed CBC w/Auto Diff [Complete Blood Count Auto Diff] Stat Lab 03/22/24 22:25 Completed CMP [Comprehensive Metabolic Panel] Stat Lab 03/22/24 22:25 Completed Magnesium Stat Lab 03/22/24 22:25 Completed TSH [Thyroid Stimulating Hormone] Stat Lab 03/22/24 22:25 Completed Trop I [Troponin I] Stat Lab 03/22/24 22:25 Completed UA [Urinalysis and Microscopic] Stat Lab 03/22/24 22:18 Completed Blood Culture Stat Micro 03/23/24 01:40 Received Medical Decision Narrative: In summary patient is a 73-year-old male who presents to the emergency department for evaluation of urinary retention. Patient is hypertensive with a blood pressure of 186/70 and a heart rate of 133 on the bedside monitor it appears to be sinus tach but satting at 98% on room air respiratory rate of 20 upon arrival, afebrile. Physical exam is remarkable for suprapubic tenderness and bilateral CVA tenderness to percussion and auscultated tachycardia with normal heart sounds. Differential diagnosis includes urinary retention versus kidney stone versus complicated UTI versus ACS versus arrhythmia etc. Initial workup will be conducted with hematologic labs CT scan of the abdomen pelvis twelve-lead EKG. Initial interventions include anchoring Rodriguez Tylenol and tramadol. Initial workup initiated by nj is pending at the time of handoff to Dr. Resendiz at 2300 hrs. <Jorge Alberto Resendiz MD - Last Filed: 03/23/24 02:00> Vital Signs: 03/22/24 21:57 03/23/24 00:15 03/23/24 01:05 Temperature 98.3 F 98.3 F 98.3 F Temperature Source Oral Oral Oral Pulse Rate 101 H 105 H Pulse Rate [Left] 125 H Respiratory Rate 20 14 16 Blood Pressure 157/65 H 165/68 H Blood Pressure [Right Arm] 186/70 H Blood Pressure Mean [Right Arm] 108 Blood Pressure Source Blood Pressure Source [Right Arm] Automatic Cuff Blood Pressure Position Supine Supine Blood Pressure Position [Right Arm] Supine 02 Sat by Pulse Oximetry 98 98 96 Oxygen Delivery Method Room Air Room Air Room Air 03/23/24 02:13 03/23/24 03:02 Temperature 98.3 F Temperature Source Oral Pulse Rate 110 H 102 H Pulse Rate [Left] Respiratory Rate 16 16 Blood Pressure 165/69 H 168/74 H Blood Pressure [Right Arm] Blood Pressure Mean [Right Arm] Blood Pressure Source Automatic Cuff Blood Pressure Source [Right Arm] Blood Pressure Position Supine Supine Blood Pressure Position [Right Arm] 02 Sat by Pulse Oximetry 96 Oxygen Delivery Method Room Air Room Air Lab Data Lab Results 03/22/24 22:18: Urine Color Yellow, Urine Appearance Clear, Urine pH 6.0, Ur Specific Ridg[place] 1.020, Urine Protein Negative, Urine Glucose (UA) Negative, Urine Ketones Negative, Urine Blood Negative, Urine Nitrate Negative, Urine Bilirubin Negative, Urine Urobilinogen 4.0, Ur Leukocyte Esterase Negative, Urine RBC None, Urine WBC Occasional, Ur Squamous Epith Cells None, Urine Bacteria None 03/22/24 22:25: WBC 17.2 H, RBC 4.26 L, Hgb 9.5 L, Hct 30.8 L, MCV 72.2 L, MCH 22.2 L, MCHC 30.7 L, RDW 17.2, Plt Count 402, MPV 6.9 L, Neut % (Auto) 89.2 H, L ymph % (Auto) 6.8 L, Johnston % (Auto) 3.7, Eos % (Auto) 0.1, Baso % (Auto) 0.1, N eut # (Auto) 15.3 H, Lymph # (Auto) 1.2, Johnston # (Auto) 0.6, Eos # (Auto) 0.0, Baso # (Auto) 0.0, Total Counted 100, Neutrophils % (Manual) 87 H, Lymphocytes % (Manual) 8 L, Monocytes % (Manual) 5, Platelet Estimate Normal, Hypochromasia 2+, Microcytosis 1+, Ovalocytes 1+, Sodium 134 L, Potassium 3.1 L, Chloride 100, Carbon Dioxide 22, Anion Gap 15.1 H, BUN 7 L, Creatinine 0.60 L, Estimated Creat Clear 50, Estimated GFR 133, Est GFR ( Amer) 161, Glucose 131 H, Calcium 9.1, Magnesium 1.2 L, Total Bilirubin 1.0, AST 27, ALT 22, Alkaline Phosphatase 249 H, Troponin I < 0.01, Total Protein 6.4 D, Albumin 3.1 L, Globulin 3.3 H, A lbumin/Globulin Ratio 0.9 L, TSH 1.72 Orders (Tests/Meds): ED MEDICATIONS Discontinued Medications Generic Name Dose Route Start Last Admin Trade Name Freq PRN Reason Stop Dose Admin Acetaminophen 1,000 mg 03/22/24 22:15 03/22/24 22:30 Acetaminophen 1,000mg/100ml Vial IV 03/22/24 22:16 Not Given ONCE ONE Magnesium Sulfate 2 gm in 50 mls @ 50 mls/hr 03/22/24 23:42 03/22/24 23:49 Magnesium Sulfate 2gm/50ml Premix IV 03/23/24 00:41 50 mls/hr ONCE ONE Administration Piperacillin Sod/Tazobactam 100 mls @ 200 mls/hr 03/23/24 01:26 03/23/24 01:55 Sod 4.5 gm/ Sodium Chloride IV 03/23/24 01:55 200 mls/hr ONCE ONE Administration Iopamidol 75 ml 03/22/24 23:23 03/22/24 23:24 Iopamidol-370 (76%);100ml Bottle IV 03/22/24 23:24 75 ml ONCE ONE Administration Ketorolac Tromethamine 15 mg 03/22/24 22:15 03/22/24 22:29 Ketorolac 30mg/Ml Vial IV 03/22/24 22:16 15 mg ONCE ONE Administration Potassium Chloride 40 meq 03/22/24 23:42 03/22/24 23:49 Potassium Chloride 20meq Tab PO 03/22/24 23:43 40 meq ONCE ONE Administration Sodium Chloride 10 ml 03/22/24 23:23 03/22/24 23:24 Sodium Chloride 0.9% 10ml Syr (Rad Only) IV 03/22/24 23:24 10 ml ONCE ONE Administration Tamsulosin HCl 0.4 mg 03/22/24 21:00 03/22/24 22:29 Tamsulosin 0.4mg Capsule PO 03/22/24 21:01 0.4 mg ONCE ONE Administration ORDERS Category Date Time Status CT abdomen pelvis w con Stat Cat Scan 03/22/24 22:16 Completed CBC w/Auto Diff [Complete Blood Count Auto Diff] Stat Lab 03/22/24 22:25 Completed CMP [Comprehensive Metabolic Panel] Stat Lab 03/22/24 22:25 Completed Magnesium Stat Lab 03/22/24 22:25 Completed TSH [Thyroid Stimulating Hormone] Stat Lab 03/22/24 22:25 Completed Trop I [Troponin I] Stat Lab 03/22/24 22:25 Completed UA [Urinalysis and Microscopic] Stat Lab 03/22/24 22:18 Completed Blood Culture Stat Micro 03/23/24 01:40 Received Medical Decision Narrative: In summary patient is a 73-year-old male who presents to the emergency department for evaluation of urinary retention. Patient is hypertensive with a blood pressure of 186/70 and a heart rate of 133 on the bedside monitor it appears to be sinus tach but satting at 98% on room air respiratory rate of 20 upon arrival, afebrile. Physical exam is remarkable for suprapubic tenderness and bilateral CVA tenderness to percussion and auscultated tachycardia with normal heart sounds. Differential diagnosis includes urinary retention versus kidney stone versus complicated UTI versus ACS versus arrhythmia etc. Initial workup will be conducted with hematologic labs CT scan of the abdomen pelvis twelve-lead EKG. Initial interventions include anchoring Rodriguez Tylenol and tramadol. Initial workup initiated by me is pending at the time of handoff to Dr. Resendiz at 2300 hrs. Astrid GUTIERREZ: I assumed care of the patient at the time of handoff from the prior provider. On reassessment patient remains tachycardic with heart rates in the 110s. He is draining appropriately. Labs independently interpreted by me and significant for leukocytosis with white count of 17, mild hypokalemia, mild hypomagnesemia. Urine without evidence of infection. CT imaging independently interpreted by me and significant for severe thickening of the rectum with large adjacent abscess. These findings were communicated to patient. Given this, patient was initiated on Zosyn for empiric antibiotic coverage. Interactive discussion was had with our general surgeon who recommended transfer to tertiary care/colorectal surgery. I spoke with Dr. Cuevas at the emergency department transfer center who accepted the patient in transfer to [facility]. I was consulted by the CHRIS, and we discussed the complexity of the problems being addressed. I approved the treatment and management plan for this patient?s care in the Emergency Department, thus performing a substantive portion of the medical decision making. Jorge Alberto Resendiz MD Critical Care <KEILA Lipscomb - Last Filed: 03/22/24 22:50> Critical Care Time Critical Care Time: No
--- NOTE | 2024-03-22 22:16 | CT_ITS ---
PROCEDURE INFORMATION: Exam: CT Abdomen And Pelvis With Contrast Exam date and time: 03/22/2024 11:15 PM Age: 73 years old Clinical indication: Other: Urinary retention; Additional info: Dysuria, urinary retention TECHNIQUE: Imaging protocol: Computed tomography of the abdomen and pelvis with contrast. Radiation optimization: All CT scans at this facility use at least one of these dose optimization techniques: automated exposure control; mA and/or kV adjustment per patient size (includes targeted exams where dose is matched to clinical indication); or iterative reconstruction. Contrast material: ISOVUE; Contrast volume: 75 ml; Contrast route: IV; COMPARISON: CT ABDOMEN PELVIS W CON 06/20/2023 3:27 AM FINDINGS: Tubes, catheters and devices: Rodriguez catheter. Liver: Normal. No mass. Gallbladder and bile ducts: Cholecystectomy. Pancreas: Normal. No ductal dilation. Spleen: Normal. No splenomegaly. Adrenal glands: Normal. No mass. Kidneys and ureters: Simple cysts involving bilateral kidneys requiring no further follow-up. Punctate non-obstructing left renal stone. Stomach and bowel: Severe masslike wall thickening involving the rectum concerning for proctitis or malignancy. To the right of the rectum there is an irregularly shaped fluid collection with rim enhancement containing gas concerning for an abscess. This measures 9.4 x 3.7 x 8.4 cm . Appendix: Normal appendix. Intraperitoneal space: Unremarkable. No free air. No significant fluid collection. Vasculature: Unremarkable. No abdominal aortic aneurysm. Lymph nodes: Unremarkable. No enlarged lymph nodes. Urinary bladder: Unremarkable as visualized. Reproductive: Enlarged prostate. Bones/joints: Unremarkable. No acute fracture. Soft tissues: Unremarkable. IMPRESSION: Severe masslike wall thickening involving the rectum concerning for proctitis or malignancy. To the right of the rectum there is an irregularly shaped fluid collection with rim enhancement containing gas concerning for an abscess. This measures 9.4 x 3.7 x 8.4 cm . COMMENTS: Consistent with the [employer]'s Incidental Findings Committee white paper (J Am Dominic Radiol 2018): Any incidental renal lesion less than 1 cm or classified as too small to characterize, or any incidental cystic renal lesion characterized as simple-appearing, is likely benign. No follow-up imaging is recommended for these lesions per consensus recommendations based on imaging criteria.
[2024-03-22] MEDS: KETOROLAC 30MG/ML VIAL 15 MG IV (22:29)
[2024-03-22] MEDS: TAMSULOSIN 0.4MG CAPSULE 0.400000000000000022 MG PO (22:29)
[2024-03-22 22:32] LABS: Microscopic, Urine URINE MICROSCOPIC (MICROSCOPIC)
[2024-03-22 22:37] LABS: Basophils % 0.1 % (0.1-2.0); Eosinophils % 0.1 % (0.1-12.0); Hematocrit 30.8 % (42.0-52.0); Hemoglobin 9.5 g/dL (14.1-18.0); Lymphocytes # 1.2 K/mm3 (0.7-4.5); Lymphocytes % 6.8 % (10-50); Mean Corpuscular HGB Conc 30.7 g/dL (31.8-35.4); Mean Corpuscular Hemoglobin 22.2 pg (27.0-31.2); Mean Corpuscular Volume 72.2 fl (80-94); Mean Platelet Volume 6.9 fl (7.4-10.4); Monocytes # 0.6 K/mm3 (0.1-1.0); Monocytes % 3.7 % (1.7-9.3); Neutrophils # 15.3 K/mm3 (1.8-7.8); Neutrophils % 89.2 % (37.0-80.0); Platelet Count 402 K/mm3 (142-424); Red Blood Count 4.26 M/mm3 (4.60-6.20); Red Cell Distribution Width 17.2 % (11.5-17.5); White Blood Count 17.2 K/mm3 (4.8-10.8)
[2024-03-22 22:38] LABS: Appearance,Urine CLEAR (Clear); Bilirubin,Urine Negative (Negative); Blood, Urine Negative (Negative); Color,Urine YELLOW (Yellow); Glucose,Urine (UA) Negative (Negative); Ketones,Urine Negative (Negative); Leukocyte Esterase,Urine Negative (Negative); Nitrate,Urine Negative (Negative); Protein,Urine Negative (Negative)
[2024-03-22 22:40] LABS: MANUAL DIFFERENTIAL MANUAL DIFFERENTIAL (MANUAL DIFF)
[2024-03-22 22:48] LABS: Chloride 100 mmol/L (98-107); Potassium 3.1 mmoL/L (3.5-5.1); Sodium 134 mmol/L (136-145)
[2024-03-22 22:50] LABS: Alanine Aminotransferase 22 U/L (12-78); Aspartate Amino Transferase 27 U/L (17-59); Blood Urea Nitrogen 7 mg/dl (9-20); Creatinine Clearance Estimated 50 mL/min (50-200); Estimated Glomerular Filt Rate 133 ml/min (>60); GFR (African American) 161 ML/MIN (>60)
[2024-03-22 22:51] LABS: Albumin Level 3.1 g/dl (3.5-5.0); Albumin/Globulin Ratio 0.9 (1.1-1.8); Alkaline Phosphatase 249 U/L (38-126); Anion Gap 15.1 mEq/L (5-15); Calcium 9.1 mg/dl (8.4-10.2); Carbon Dioxide 22 mmol/L (22.0-30.0); Globulin 3.3 g/dL (1.3-3.2); Glucose 131 mg/dl (74-100); Magnesium 1.2 mg/dl (1.6-2.3); Total Protein,Serum 6.4 g/dl (6.3-8.2)
[2024-03-22 23:05] LABS: Lymphocytes % 8 % (10-50); Monocytes % 5 % (2-9); Neutrophils % 87 % (42-76); Total Cells Counted 100
[2024-03-22 23:06] LABS: Hypochromasia 2+; Microcytosis 1+; Ovalocytes 1+; Platelet Estimate Normal; Troponin I < 0.01 ng/ml (0.00-0.034)
[2024-03-22 23:07] LABS: WBC,Urine Occasional #/hpf (0-3)
[2024-03-22 23:22] LABS: Thyroid Stimulating Hormone 1.72 uIU/mL (0.465-4.68)
[2024-03-22] MEDS: IOPAMIDOL-370 (76%);100ML BOTTLE 75 ML IV (23:24)
[2024-03-22] MEDS: SODIUM CHLORIDE 0.9% 10ML SYR (RAD ONLY) 10 ML IV (23:24)
--- NOTE | 2024-03-22 23:31 | PC.NURSE ---
Pt matt bag emptied, approx 600ml
[2024-03-22] MEDS: POTASSIUM CHLORIDE 20MEQ TAB 40 MEQ PO (23:49)
[2024-03-22] MEDS: MAGNESIUM SULFATE IN WATER 2 GM/50 ML PIGGYBACK IV (23:49)
[2024-03-23 00:15] VITALS: BP 157/65; PULSE 101; RESP 14; TEMP 36.8; O2SAT 98
[2024-03-23 01:05] VITALS: BP 165/68; PULSE 105; RESP 16; TEMP 36.8; O2SAT 96
--- NOTE | 2024-03-23 01:25 | PC.NURSE ---
nurses at bedside adjusting catheter and pants
--- NOTE | 2024-03-23 01:36 | PC.NURSE ---
paged on-call for surgery
--- NOTE | 2024-03-23 01:40 | PC.NURSE ---
spoke with dr toribio
--- NOTE | 2024-03-23 01:45 | PC.NURSE ---
PC to [facility], ED doctor on the phone with Dr. Cuevas
--- NOTE | 2024-03-23 01:47 | PC.NURSE ---
pt accepted to [facility] by DR Cuevas
[2024-03-23] MEDS: PIPERACILLIN/TAZO 4.5 GM in 0.9 % SODIUM CHLORIDE 100 ML IV (01:55)
--- NOTE | 2024-03-23 02:12 | PC.NURSE ---
Report called to Kaitlin DOUGLAS
[2024-03-23 02:13] VITALS: BP 165/69; PULSE 110; RESP 16; O2SAT 96
--- NOTE | 2024-03-23 02:31 | PC.NURSE ---
Pt has requested someone to go get his backpack from his vehicle before being transported to . Backpack obtained from pt vehicle with Michaela Orosco RN, vehicle locked back, bag and car morse returned to pt.
[2024-03-23 03:02] VITALS: BP 168/74; PULSE 102; RESP 16; TEMP 36.8; O2SAT 98
--- NOTE | 2024-03-23 23:25 | ECG_ITS ---
APPROVED REPORT Exam: Resting ECG HR:108 bpm ECG Measurements Heart Rate 108 AXES [place] 165 P 96 QRSd 90 QRS 88 QT 390 T 77 QTc 454 Conclusion SINUS TACHYCARDIA ABNORMAL RHYTHM ECG UNCONFIRMED REPORT Electronically signed by : LAYO LEGER, 03/23/2024 05:19:03
== END 2024-03-23 03:04 | disposition other institution (70) ==
PROVIDERS: Emergency Medicine; Physician Assistant; Emergency Provider Emergency Medicine
DX: K61.1 Rectal abscess (principal); R33.9 Retention of urine, unspecified; R00.0 Tachycardia, unspecified; E87.6 Hypokalemia; E83.42 Hypomagnesemia; D72.829 Elevated white blood cell count, unspecified; K62.89 Other specified diseases of anus and rectum; F17.210 Nicotine dependence, cigarettes, uncomplicated
CPT/HCPCS: 74177; 80053; 81001; 83735; 84443; 84484; 85007; 85025; 87040; 93005; 96365; 96367; 96375; 99285; J2543; J3475; Q9967

== ENCOUNTER 2024-07-04 08:37 | Outpatient (CLI) | payer MEDICARE, SELFPAY ==
[2024-07-04 09:19] LABS: Blood Urea Nitrogen 10 mg/dl (9-20); Estimated Glomerular Filt Rate 111 ml/min (>60); GFR (African American) 135 ML/MIN (>60)
== END 2024-07-04 23:59 | disposition home or self-care (01) ==
LOC: LAB 08:38
PROVIDERS: PCP Nurse Practitioner; Visit Provider Surgery
DX: C20 Malignant neoplasm of rectum (principal)
CPT/HCPCS: 36415; 82565; 84520

== ENCOUNTER 2024-07-11 08:19 | Outpatient (CLI) | payer MEDICARE, SELFPAY ==
--- NOTE | 2024-07-11 | MR_ITS ---
FINAL REPORT TECHNIQUE: Large nmbih-mz-yial axial and coronal imaging of the pelvis was obtained before and after intravenous contrast. CLINICAL HISTORY: RECTAL CANCER COMPARISON: None. FINDINGS: Please note that this exam was not performed using a rectal cancer shaking protocol. Only large [id number]-[id number] images were obtained. There are no sagittal images. There is a large mass involving the middle and lower third of the rectum. This mass extends inferiorly to involve the anus. It likely extends along the skin of the left medial gluteal fold. There is involvement of the right seminal vesicle and the inferior aspect of the right prostate. 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 In greatest axial dimension, this lesion measures 6.6 x 7.8 cm. It extends at least 13 cm in long axis.The mass involves all layers of the sphincter. Abnormal soft tissue extends into the right ischioanal soft tissues. Evaluation for lymphadenopathy is limited due to field of view. There are borderline bilateral common femoral lymph nodes. There is no free fluid. IMPRESSION: This exam was not performed as a rectal cancer staging exam. If desired exam was a rectal cancer staging exam, this should be repeated using the appropriate rectal cancer staging protocol. Large rectal mass involving the prostate, seminal vesicle, urethra, and anus. This is a T4 lesion in the broad sense. Borderline common femoral lymph nodes. Metastatic disease not excluded. Authenticated and ERN
[2024-07-11] MEDS: GADOTERIDOL INJ 20ML SYRINGE 11 ML IV (09:22)
[2024-07-11] MEDS: SODIUM CHLORIDE 0.9% 10ML FLUSH SYRINGE 10 ML IV (09:22)
== END 2024-07-11 23:59 | disposition home or self-care (01) ==
LOC: RAD 08:20
PROVIDERS: PCP Nurse Practitioner Family; Visit Provider Surgery
DX: C20 Malignant neoplasm of rectum (principal)
CPT/HCPCS: 72197; A9576

== ENCOUNTER 2024-09-29 17:22 | Observation (INO) | payer MEDICARE, SELFPAY ==
[2024-09-29] VITALS (8 sets, daily range): BP systolic 129–184; BP diastolic 59–104; PULSE 103–152; RESP 16–20; TEMP 36.8–37; O2SAT 96–99; BMI 20.9; BMI 21.4
--- NOTE | 2024-09-29 17:29 | ECG_ITS ---
APPROVED REPORT Exam: Resting ECG HR:135 bpm ECG Measurements Heart Rate 135 AXES DC 147 P 80 QRSd 90 QRS 92 QT 299 T 58 QTc 378 Conclusion SINUS TACHYCARDIA BORDERLINE RIGHT AXIS DEVIATION [QRS AXIS > 90] ABNORMAL RHYTHM ECG UNCONFIRMED REPORT Electronically signed by : LAYO LEGER, 09/30/2024 06:52:01
--- NOTE | 2024-09-29 17:32 | CT_ITS ---
PROCEDURE INFORMATION: Exam: CT Abdomen And Pelvis With Contrast Exam date and time: 09/29/2024 6:25 PM Age: 73 years old Clinical indication: Other: Urinary retention; Additional info: Urinary retention, HX colon/prostate cancer. TECHNIQUE: Imaging protocol: Computed tomography of the abdomen and pelvis with contrast. Radiation optimization: All CT scans at this facility use at least one of these dose optimization techniques: automated exposure control; mA and/or kV adjustment per patient size (includes targeted exams where dose is matched to clinical indication); or iterative reconstruction. Contrast material: ISOVUE; Contrast volume: 75 ml; Contrast route: IV; COMPARISON: CT ABDOMEN PELVIS W CON 03/22/2024 11:15 PM FINDINGS: Liver: Normal. No mass. Gallbladder and biliary ducts: Cholecystectomy Pancreas: Normal. No ductal dilation. Spleen: Normal. No splenomegaly. Adrenal glands: Normal. No mass. Kidneys and ureters: Simple and complex cysts involving bilateral kidneys. The complex cysts in the right kidney exophytic 1.5 cm hyperdense could reflect proteinaceous or hemorrhagic cyst. Mild stranding around bilateral kidneys appears chronic. Stomach and bowel: Right lower quadrant colostomy. Large necrotic mass in the right perirectal region concerning for neoplasm versus severe infection. This mass extends inferiorly where there is also noted rectal prolapse. The largest extent of the mass measures 7.8 x 5.9 x 10.6 cm. This mass results in involvement of the posterior prostate and of the rectum which shows severe wall thickening. Postsurgical changes in the colon. Appendix: No evidence of appendicitis. Intraperitoneal space: Unremarkable. No free air. No significant fluid collection. Vasculature: Unremarkable. No abdominal aortic aneurysm. Lymph nodes: Unremarkable. No enlarged lymph nodes. Urinary bladder: Urinary bladder wall thickening with Rodriguez catheter in place. Reproductive: See Stomach and bowel finding. Bones/joints: Unremarkable. No acute fracture. Soft tissues: Unremarkable. IMPRESSION: 1. Large necrotic partially cystic mass in the lower pelvis to the right of the rectum with cystic elements distally and rectal prolapse. This could reflect severe malignancy or severe infection. 2. Severe proctitis 3. Right lower quadrant colostomy. No bowel obstruction
--- NOTE | 2024-09-29 17:45 | ED_ITS ---
Discharge Plan Disposition Patient Disposition: Admitted Clinical Impressions Clinical Impression: Sepsis, Acute UTI Discharge ED Provider: Lorenzo Davies General Adult HPI General Chief complaint: Urogenital-Male Stated complaint: unable to urinate Time Seen by Provider: 09/29/24 17:29 Mode of Arrival: Ambulatory Source of Information: Patient Limitations: No Limitations Description of Symptoms (Recalled from ER Triage Doc. by RN): pt states he has been unable to urinate since last night. pt states he has just been dribbling red tinged urine. pt states he has minimal to no pain unless he is actively trying to urinate. pt bladder scan read >522ml. pt has a colostomy that was surgically placed in March of this year for colorectal cancer. Pt has had numerous complications with it. His stoma is edematous. pt is not on chemo/radiation but is unsure if he is in remission or not. pt also has a hx of prostate problems. History of Present Illness HPI narrative: Sae Johnson is a 73-year-old male with a past medical history significant for rectal cancer not on chemo/radiation with ostomy placement, previous rectal abscess, urinary retention who presents to the emergency department for complaints of urinary retention. Patient states that over the last 2 days, he has had significantly decreased urine output. He states that initially he was able to get a small stream, however he is only able to produce a few dribbles currently. He reports increasing abdominal swelling and lower abdominal pain. He notes that this has happened before when he was diagnosed with colon cancer. He states that he has not been started on chemo or radiation therapy currently. Patient notes that he previously had an indwelling Rodriguez catheter for 73 days and his primary care physician removed it in May. He has not had any indwelling catheter since then. Patient reports subjective fever 2 days ago that temperature of 100.1 ?F at that time. Patient noted to be tachycardic on arrival, however patient attributes this to pain. Patient denies any vomiting and states that he has had normal output from his ostomy. Related Data Home Medications ?Medication ?Instructions ?Recorded ?Confirmed lisinopril 20 mg tablet 20 mg PO DAILY blood pressure 04/27/19 09/29/24 omeprazole 20 mg capsule,delayed 20 mg PO DAILY GERD 04/27/19 09/29/24 release simvastatin 40 mg tablet 40 mg PO DAILY Cholesterol 04/27/19 09/29/24 theophylline 300 mg 300 mg PO DAILY Breathing problems 04/27/19 09/29/24 tablet,extended release,12 hr tamsulosin 0.4 mg capsule 0.4 mg PO DAILY 09/29/24 09/29/24 Allergies Allergy/AdvReac Type Severity Reaction Status Date / Time No Known Allergies Allergy Verified 09/29/24 17:46 [facility] Disclaimer: The information contained in this section may have been updated after the patient was seen, as this information can be updated by other users. Medical History (Updated 09/29/24 @ 21:55 by Nusrat Ritter RN) Hypertension Gout Cholecystectomy planned Colostomy in place History of elevated PSA Colostomy present on admission Rectal cancer Leukocytosis Urinary retention Surgical History History of colon resection COPD (chronic obstructive pulmonary disease) Social History (Updated 09/29/24 @ 21:55 by Nusrat Ritter RN) Smoking Status: Never smoker alcohol intake: never substance use type: denies use current occupational status: retired Travel in the last 8 weeks: None household members: none housing: house caffeine: No Other Medical History Have you received the Flu Vaccine for this season: Yes Have you received the Pneumonia Vaccine: No ROS Obtained: Yes Systems reviewed as appropriate & no additional complaints except as documented Physical Exam General General appearance: alert and in no apparent distress Comment: Chronically ill-appearing, in no acute distress Head Head exam: atraumatic Eye Eye exam: Present normal appearance ENT ENT exam: Present normal external ear exam Neck Neck exam: Present full ROM Chest Chest inspection: Present symmetric chest wall rise Respiratory Respiratory exam: Present normal lung sounds bilaterally; Absent respiratory distress, wheezes or stridor Cardiovascular Cardiovascular exam: Present regular rate and tachycardia Abdominal Exam Abdominal exam: Present soft, distention and tenderness (Mild suprapubic tenderness); Absent guarding Comment: Ostomy in place to right upper quadrant. Small amount of stool within the ostomy bag exam: Present deferred Extremities Exam Extremities exam: Present normal inspection Back Exam Back exam: Present normal inspection Neurological Exam Neurological exam: Present alert and oriented X3 Psychiatric Psychiatric exam: Present normal affect Skin Skin exam: Present warm and dry Medical Decision Making Medical Records Medical records reviewed: Yes I reviewed the patient's medical records. Screening: Per USPSTF and CDC recommendations, given the prevalence of disease in our region, it is our hospital?s policy to screen for HIV and viral Hepatitis for all patients aged 18 and over and those with ongoing risk factors. Osmel Inquiry Pt receiving controlled substance: No Vital Signs: 09/29/24 17:35 09/29/24 17:45 09/29/24 19:01 Temperature 98.2 F Temperature Source Oral Pulse Rate 124 H 103 H Pulse Rate [Left] 152 H Respiratory Rate 18 Blood Pressure 147/69 H Blood Pressure [Right Arm] 129/71 Blood Pressure Mean 95 Blood Pressure Mean [Right Arm] 90 Blood Pressure Source Blood Pressure Source [Right Arm] Automatic Cuff Blood Pressure Position Blood Pressure Position [Right Arm] Sitting 02 Sat by Pulse Oximetry 96 99 98 Oxygen Delivery Method Room Air Room Air 09/29/24 19:30 09/29/24 20:00 09/29/24 20:30 Temperature Temperature Source Pulse Rate 112 H 108 H 112 H Pulse Rate [Left] Respiratory Rate Blood Pressure 153/72 H 134/59 L 163/104 H Blood Pressure [Right Arm] Blood Pressure Mean 99 84 114 Blood Pressure Mean [Right Arm] Blood Pressure Source Blood Pressure Source [Right Arm] Blood Pressure Position Blood Pressure Position [Right Arm] 02 Sat by Pulse Oximetry 97 97 99 Oxygen Delivery Method 09/29/24 20:59 Temperature 98.2 F Temperature Source Oral Pulse Rate 111 H Pulse Rate [Left] Respiratory Rate 20 Blood Pressure 163/104 H Blood Pressure [Right Arm] Blood Pressure Mean Blood Pressure Mean [Right Arm] Blood Pressure Source Automatic Cuff Blood Pressure Source [Right Arm] Blood Pressure Position Sitting Blood Pressure Position [Right Arm] 02 Sat by Pulse Oximetry Oxygen Delivery Method Room Air Lab Data Lab Results 09/29/24 17:32: WBC 13.4 H, RBC 4.21 L, Hgb 11.1 L, Hct 33.1 L, MCV 78.7 L, MCH 26.3 L, MCHC 33.4, RDW 15.4, Plt Count 225, MPV 7.9, Neut % (Auto) 84.5 H, Lymph % (Auto) 9.5 L, [place] % (Auto) 5.6, Eos % (Auto) 0.1, Baso % (Auto) 0.2, Neut # (Auto) 11.3 H, Lymph # (Auto) 1.3, [place] # (Auto) 0.8, Eos # (Auto) 0.0, Baso # (Auto) 0.0, Sodium 137, Potassium 4.1, Chloride 102, Carbon Dioxide 18 L, Anion Gap 21.1 H, BUN 20, Creatinine 1.00, Estimated Creat Clear 51, Estimated GFR 74, Est GFR ( Amer) 89, Glucose 146 H, Calcium 9.5, Total Bilirubin 1.0, AST 38, ALT 40, Alkaline Phosphatase 319 H, Total Protein 7.1, Albumin 3.7, Globulin 3.4 H, Albumin/Globulin Ratio 1.1, Lipase 58, HIV 1&2 Antibody Rapid Nonreactive 09/29/24 17:54: Urine Color Yellow, Urine Appearance Clear, Urine pH 5.5, Ur Specific [place] 1.020, Urine Protein 2+ A, Urine Glucose (UA) Negative, Urine Ketones Negative, Urine Blood 3+ A, Urine Nitrate Negative, Urine Bilirubin Negative, Urine Urobilinogen 0.2, Ur Leukocyte Esterase 2+ A, Urine RBC Tntc, Urine WBC 50-100, Ur Squamous Epith Cells 20-50, Urine Bacteria 2+ 09/29/24 17:55: VBG pH 7.35, VBG pCO2 38.3, VBG pO2 31.6, VBG HCO3 20.6 L, VBG Total CO2 21.8 L, VBG O2 Saturation 55.2, VBG Base Excess -5.1 L, VBG Lactic Acid 8.1 H 09/29/24 17:32 09/29/24 17:32 Orders (Tests/Meds): ED MEDICATIONS Generic Name Dose Route Start Last Admin Trade Name Freq PRN Reason Stop Dose Admin Acetaminophen 650 mg 09/29/24 20:29 Acetaminophen 325mg Tab PO 10/29/24 20:28 Q4HP PRN Fever or Mild Pain (1-3) Enoxaparin Sodium 40 mg 09/30/24 09:00 Enoxaparin 40mg/0.4ml Syringe SUBCUT 10/30/24 08:59 DAILY CAROLYN Sodium Chloride 1,000 mls @ 75 mls/hr 09/29/24 20:30 09/29/24 21:45 Sod Chlor 0.9% 1000ml Bag IV 10/29/24 20:29 75 mls/hr .[id number] CAROLYN Administration Ketorolac Tromethamine 15 mg 09/29/24 20:29 Ketorolac 30mg/Ml Vial IV 10/04/24 20:28 Q6HP PRN Moderate Pain (4-6) Ondansetron HCl 4 mg 09/29/24 20:29 Ondansetron 4mg/2ml Vial IV 10/29/24 20:28 Q8HP PRN Nausea Pantoprazole Sodium 40 mg 09/29/24 21:00 09/29/24 21:45 Pantoprazole 40mg Tablet PO 10/29/24 20:59 40 mg HS CAROLYN Administration Sodium Chloride 10 ml 09/29/24 18:26 09/29/24 18:27 Sodium Chloride 0.9% 10ml Syr (Rad Only) IV 10/29/24 18:25 10 ml NEEDED PRN Administration Maintain IV Site Discontinued Medications Generic Name Dose Route Start Last Admin Trade Name Freq PRN Reason Stop Dose Admin Sodium Chloride 1,000 mls @ 999 mls/hr 09/29/24 17:45 09/29/24 18:37 Sod Chlor 0.9% 1000ml Bag IV 09/29/24 18:45 999 mls/hr .Q1H1M ONE Administration Ceftriaxone Sodium 2 gm/ 50 mls @ 100 mls/hr 09/29/24 19:03 09/29/24 19:28 Sodium Chloride IV 09/29/24 19:32 Not Given ONCE ONE Ceftriaxone Sodium 2 gm/ 100 mls @ 200 mls/hr 09/29/24 19:29 09/29/24 19:41 Sodium Chloride IV 09/29/24 19:58 200 mls/hr ONCE ONE Administration Iopamidol 75 ml 09/29/24 18:26 09/29/24 18:28 Iopamidol-370 (76%);100ml Bottle IV 09/29/24 18:27 75 ml ONCE ONE Administration ORDERS Category Date Time Status CT abdomen pelvis w con Stat Cat Scan 09/29/24 17:32 Completed Consult to Case Management [CONS] Routine Cons 09/29/24 20:29 Active CBC w/Auto Diff [Complete Blood Count Auto Diff] Stat Lab 09/29/24 17:32 Completed CMP [Comprehensive Metabolic Panel] Stat Lab 09/29/24 17:32 Completed Complete Blood Count Auto Diff AMLAB Lab 09/30/24 06:00 Ordered Comprehensive Metabolic Panel AMLAB Lab 09/30/24 06:00 Ordered HIV (1&2) Antibody Rapid Stat Lab 09/29/24 17:32 Completed Hep C Ab with Reflex to RNA Stat Lab 09/29/24 17:32 Received Lipase Stat Lab 09/29/24 17:32 Completed Magnesium AMLAB Lab 09/30/24 06:00 Ordered Urinalysis and Microscopic Stat Lab 09/29/24 17:54 Completed Blood Culture Stat Micro 09/29/24 18:01 Received Urine Culture Stat Micro 09/29/24 17:54 Received VBG [Venous Blood Gas] Stat RT 09/29/24 17:55 Completed ECG Data Tracing #1: I reviewed this ECG and interpreted as documented below: EKG interpreted by me personally at 1730. Sinus tachycardia with a heart rate of 135 bpm. Normal NM interval of 147. No QTc prolongation. No ST elevations or depressions. Medical Decision Narrative: Sae Johnson is a 73-year-old male with a past medical history of rectal cancer with previous urinary retention requiring Rodriguez catheter placement who presents to the emergency department for complaints of 2 days of urinary retention. Patient's bladder scan on arrival with over 522 mL of fluid. Rodriguez catheter placed upon arrival. Patient had significant relief of his symptoms since having the Rodriguez catheter placed. Patient had MRI performed in June that demonstrated Large rectal mass involving the prostate, seminal vesicle, urethra, and anus. This is a T4 lesion in the broad sense. Borderline common femoral lymph nodes. Metastatic disease not excluded. Patient also noted to have a perirectal abscess on CT imaging back in March and was transferred to at that time. On arrival, patient noted to be tachycardic with a heart rate of 152 but otherwise hemodynamically stable and afebrile. Maintaining appropriate oxygen saturation on room air. Differential diagnosis includes: Metastatic disease, intra-abdominal abscess, UTI, obstructive urinary retention, sepsis, pancreatitis, among others. Patient's workup in the emergency department included: CT abdomen pelvis with IV contrast, CBC, CMP, lipase, urinalysis, EKG, VBG, lactic acid. Will give 1 L normal saline due to patient's tachycardia. Patient's workup significant for leukocytosis of 13.4 with left shift, normal pH, lactate significantly elevated at 8.1, anion gap of 21.1, electrolytes otherwise within normal limits, alk phos elevated 319 but liver enzymes otherwise within normal limits. Urine shows evidence of infection with 50-100 white blood cells, too numerous red blood cells to count, leukocyte esterase 2+, 3+ urine, negative ketones. Patient was started on 2 g of IV Rocephin for evidence of UTI in the setting of sepsis. CT imaging was interpreted by me personally and demonstrated a large necrotic cystic mass in the lower pelvis to the right of the rectum with cystic elements that appear to be infectious but could be related to his malignancy. Severe proctitis. No bowel obstruction present. See radiology report for details. Given the patient's sepsis in the setting of urinary tract infection as well as findings on CT imaging concerning for worsening malignancy/infection, patient was offered transfer to as he was previously seen by colorectal surgery there for his ostomy placement and has oncology referral there, however he stated that he had such a horrible experience in their ED and sat there for 15 hours and they poked him for labs multiple times without getting blood and he does not wish to go back to today under any circumstance. It was reiterated that he is very sick today and does need admission at minimum for IV antibiotics. Patient is amenable to admission to [facility] but does not wish to go elsewhere. Discuss further with the patient that likely benefit from admission at least for treatment of his sepsis, however he is adamant that he does not want to go to but is in agreement for admission to [facility]. Given that there is no acute surgical pathology on CT imaging, discussions were had with the hospitalist team for admission. Upon their evaluation, they were in agreement to admit the patient for further management. Patient excepted by Dr. Castro and admitted for further management. Critical Care Critical Care Time Critical Care Time: Yes Attestation: On 09/29/24, the high probability of a clinically significant, sudden or life threatening deterioration of the following system(s) required my full and direct attention, intervention and personal management. The time I documented below is in addition to time spent performing reported procedures but includes the following listed in this critical care notation. Total Time Total Critical Care Time: 30
[2024-09-29 18:00] LABS: VBG Base Excess -5.1 mmol/L (-2.4-2.3); VBG HCO3 20.6 mmol/L (23-30); VBG Oxygen Saturation 55.2 % (50-70); VBG PCO2 38.3 mmol/L (35-51); VBG PH 7.35 mmol/L (7.31-7.41); VBG PO2 31.6 mmol/L (28-40); VBG Total CO2 21.8 mmol/L (23-27)
[2024-09-29 18:01] LABS: Lactate Venous 8.1 mmol/L (0.4-2.0)
--- NOTE | 2024-09-29 18:05 | PC.NURSE ---
2nd blood culture drawn and sent to lab at 1801. Blue band was placed on patients left wrist
[2024-09-29 18:09] LABS: Albumin Level 3.7 g/dl (3.5-5.0); Chloride 102 mmol/L (98-107); Potassium 4.1 mmoL/L (3.5-5.1); Sodium 137 mmol/L (136-145)
[2024-09-29 18:11] LABS: Alanine Aminotransferase 40 U/L (12-78); Aspartate Amino Transferase 38 U/L (17-59); Basophils % 0.2 % (0.1-2.0); Blood Urea Nitrogen 20 mg/dl (9-20); Creatinine Clearance Estimated 51 mL/min (50-200); Eosinophils % 0.1 % (0.1-12.0); Estimated Glomerular Filt Rate 74 ml/min (>60); GFR (African American) 89 ML/MIN (>60); Hematocrit 33.1 % (42.0-52.0); Hemoglobin 11.1 g/dL (14.1-18.0); Lymphocytes # 1.3 K/mm3 (0.7-4.5); Lymphocytes % 9.5 % (10-50); Mean Corpuscular HGB Conc 33.4 g/dL (31.8-35.4); Mean Corpuscular Hemoglobin 26.3 pg (27.0-31.2); Mean Corpuscular Volume 78.7 fl (80-94); Mean Platelet Volume 7.9 fl (7.4-10.4); Monocytes # 0.8 K/mm3 (0.1-1.0); Monocytes % 5.6 % (1.7-9.3); Neutrophils # 11.3 K/mm3 (1.8-7.8); Neutrophils % 84.5 % (37.0-80.0); Platelet Count 225 K/mm3 (142-424); Red Blood Count 4.21 M/mm3 (4.60-6.20); Red Cell Distribution Width 15.4 % (11.5-17.5); White Blood Count 13.4 K/mm3 (4.8-10.8)
[2024-09-29 18:12] LABS: Albumin/Globulin Ratio 1.1 (1.1-1.8); Alkaline Phosphatase 319 U/L (38-126); Anion Gap 21.1 mEq/L (5-15); Calcium 9.5 mg/dl (8.4-10.2); Carbon Dioxide 18 mmol/L (22.0-30.0); Globulin 3.4 g/dL (1.3-3.2); Glucose 146 mg/dl (74-100); Lipase 58 U/L (23-300); Total Protein,Serum 7.1 g/dl (6.3-8.2)
[2024-09-29 18:24] LABS: Appearance,Urine CLEAR (Clear); Blood, Urine 3+ (Negative); Color,Urine YELLOW (Yellow); Glucose,Urine (UA) Negative (Negative); Ketones,Urine Negative (Negative); Leukocyte Esterase,Urine 2+ (Negative); Microscopic, Urine URINE MICROSCOPIC (MICROSCOPIC); Nitrate,Urine Negative (Negative); PH,Urine 5.5 (5.0-8.5); Protein,Urine 2+ (Negative); Urobilinogen,Urine 0.2 EU/dl (0.2)
[2024-09-29 18:25] LABS: Bilirubin,Urine Negative (Negative)
[2024-09-29] MEDS: SODIUM CHLORIDE 0.9% 10ML SYR (RAD ONLY) 10 ML IV (18:27)
[2024-09-29] MEDS: IOPAMIDOL-370 (76%);100ML BOTTLE 75 ML IV (18:28)
[2024-09-29] MEDS: 0.9 % SODIUM CHLORIDE 1000ML 1,000 ML 999 ML IV (18:37)
[2024-09-29 18:52] LABS: Bacteria,Urine 2+ /lpf; RBC,Urine TNTC #/hpf (0-3); Squamous Epithelial Cell,Urine 20-50 #/hpf (0-5); WBC,Urine 50-100 #/hpf (0-3)
[2024-09-29] MEDS: CEFTRIAXONE SODIUM 2 GM in 0.9 % SODIUM CHLORIDE 100 ML IV (19:41)
[2024-09-29 19:42] LABS: HIV (1&2) Antibody Rapid NONREACTIVE (NONREACTIVE)
--- NOTE | 2024-09-29 20:31 | PC.NURSE ---
Called housekeeping/laundry supervisor requesting a bed
--- NOTE | 2024-09-29 20:49 | PC.NURSE ---
RN attempted to call report nurse unable to take report at this time and will call back.
--- NOTE | 2024-09-29 20:59 | PC.NURSE ---
Report called to Nusrat CRABTREE
--- NOTE | 2024-09-29 21:18 | P.HP_ITS ---
<Statement entered by Almas Castro MD - 10/02/24 22:47> I personally examined patient and agree with CIRCUS ARTIST's plan of care. History of Present Illness *Admission Date: 09/29/24 *Reason for visit:: UTI with urinary retention possible sepsis *History of present illness: This patient has a very long complicated history of urinary retention, on 05/02/2019 patient was noted to have a mass in the retrosigmoid area. 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 Unsure of exact date but colostomy has been placed., Patient is noted for urinary retention in July 2020 also on 03/22/2024 had catheter placed and I went back to ER kept the catheter for more than 70 days and it was removed, patient also noted in the past with elevated PSA, patient returns today with fever elevated heart rate appearing to be septic with urinary retention positive leuks positive blood in the urine, Rodriguez catheter has been placed antibiotics have been started fluid has been given. Also noting that the patient's weight was 65 kg in November 2020 it presently is 53 kg. Emergency room physician called me to come down to see about admitting the patient because the patient was refusing transfer to . I came down and interviewed the patient who is alert and oriented. He felt he was not treated well at and refused cancer treatment in the past because of this., Patient was noted that he was supposed to see Dr. Graf on July 22. Patient stated he called and had to cancel that appointment. He notes he never followed up but he was never called for a return appointment.. Examination of the CT scan shows a very large mass in the pelvic region also probable intrusion into urethra by the mass., Rodriguez catheter is easily seen and bladder is now drained. I have talked to the patient about any future treatment of that would need the specialty of the Hospital patient says he does not want this he will be a DNR., With this I will go ahead and admit him to the floor that we will treat him for sepsis related to urinary tract infection.. At present I feel that the patient is stable and should do well as far as clearing the urinary tract infection. Patient understands that I have no control over any potential bleeding into the pelvic area related to this very large tumor.. The patient has noted this and is wanting to be a DNR he does not want surgery does not want transfer so I feel comfortable placing him up on the floor to t reat him for this. Noting his son is in the room who is recently retired from the [employer] who is aware of all of this. The patient did state him this is just like mom that nothing would be done that she was a DNR also. So I do feel that we can treat and possibly cure the immediate problem. Get rid of the elevated heart rate the sepsis get the patient's fluid balance squared away and be able to discharge him home. [facility] Disclaimer: The information contained in this section may have been updated after the patient was seen, as this information can be updated by other users. Medical History (Updated 09/29/24 @ 21:30 by Everardo Hector APRN) Colostomy present on admission Urinary retention Leukocytosis Rectal cancer History of elevated PSA Surgical History (Updated 09/29/24 @ 21:30 by Everardo Hector APRN) COPD (chronic obstructive pulmonary disease) History of colon resection Social History Smoking Status: Never smoker alcohol intake: never substance use type: denies use current occupational status: other Travel in the last 8 weeks: None household members: none housing: house caffeine: No Other Medical History Have you received the Flu Vaccine for this season: Yes Have you received the Pneumonia Vaccine: No Review of Systems Review of Systems Review of systems:: pertinent systems reviewed and negative unless documented below Constitutional Constitutional: Reports as per HPI and Reports weight loss Eyes Eyes: Reports as per HPI ENT Ears, Nose, Mouth, and Throat: Reports as per HPI *Cardiovascular Cardiovascular: Reports as per HPI *Respiratory Respiratory: Reports as per HPI *Gastrointestinal Gastrointestinal: Reports as per HPI Comments: Denies any abdominal pain or bloating, colostomy working well *Genitourinary Genitourinary: Reports as per HPI and Reports oliguria *Musculoskeletal Musculoskeletal: Reports as per HPI Integumentary/Breasts Skin/Breast: Reports as per HPI *Neurologic Neurologic: Reports as per HPI Psychiatric Psychiatric: Reports as per HPI Endocrine Endocrine: Reports as per HPI Hematologic/Lymphatic Hematologic/Lymphatic: Reports as per HPI Allergic/Immunologic Allergic/Immunologic: Reports as per HPI Meds Home Medications and Allergies Home Medications ?Medication ?Instructions ?Recorded ?Confirmed ?Type lisinopril 20 mg tablet 20 mg PO DAILY blood pressure 04/27/19 09/29/24 History omeprazole 20 mg capsule,delayed 20 mg PO DAILY GERD 04/27/19 09/29/24 History release simvastatin 40 mg tablet 40 mg PO DAILY Cholesterol 04/27/19 09/29/24 History theophylline 300 mg 300 mg PO DAILY Breathing problems 04/27/19 09/29/24 History tablet,extended release,12 hr tamsulosin 0.4 mg capsule 0.4 mg PO DAILY 09/29/24 09/29/24 History New Prescriptions to Start Prescriptions: Allergies Allergy/AdvReac Type Severity Reaction Status Date / Time No Known Allergies Allergy Verified 09/29/24 17:46 Exam Data for Last 24 hours Vital signs and Labs for Last 24 Hours: Temp Pulse Resp BP Pulse Ox O2 Del Method 98.2 F 111 H 20 163/104 H 99 Room Air 09/29/24 20:59 09/29/24 20:59 09/29/24 20:59 09/29/24 20:59 09/29/24 20:30 09/29/24 20:59 Laboratory Results - last 24 hr 09/29/24 17:32: WBC 13.4 H, RBC 4.21 L, Hgb 11.1 L, Hct 33.1 L, MCV 78.7 L, MCH 26.3 L, MCHC 33.4, RDW 15.4, Plt Count 225, MPV 7.9, Neut % (Auto) 84.5 H, Lymph % (Auto) 9.5 L, Stephenson % (Auto) 5.6, Eos % (Auto) 0.1, Baso % (Auto) 0.2, Neut # (Auto) 11.3 H, Lymph # (Auto) 1.3, Stephenson # (Auto) 0.8, Eos # (Auto) 0.0, Baso # (Auto) 0.0, Sodium 137, Potassium 4.1, Chloride 102, Carbon Dioxide 18 L, Anion Gap 21.1 H, BUN 20, Creatinine 1.00, Estimated Creat Clear 51, Estimated GFR 74, Est GFR ( Amer) 89, Glucose 146 H, Calcium 9.5, Total Bilirubin 1.0, AST 38, ALT 40, Alkaline Phosphatase 319 H, Total Protein 7.1, Albumin 3.7, Globulin 3.4 H, Albumin/Globulin Ratio 1.1, Lipase 58, HIV 1&2 Antibody Rapid Nonreactive 09/29/24 17:54: Urine Color Yellow, Urine Appearance Clear, Urine pH 5.5, Ur Specific Frannie 1.020, Urine Protein 2+ A, Urine Glucose (UA) Negative, Urine Ketones Negative, Urine Blood 3+ A, Urine Nitrate Negative, Urine Bilirubin Nega tive, Urine Urobilinogen 0.2, Ur Leukocyte Esterase 2+ A, Urine RBC Tntc, Urine WBC 50-100, Ur Squamous Epith Cells 20-50, Urine Bacteria 2+ 09/29/24 17:55: VBG pH 7.35, VBG pCO2 38.3, VBG pO2 31.6, VBG HCO3 20.6 L, VBG Total CO2 21.8 L, VBG O2 Saturation 55.2, VBG Base Excess -5.1 L, VBG Lactic Acid 8.1 H I & O for Last 24 hours: Intake & Output 09/26/24 09/27/24 09/28/24 09/29/24 23:59 23:59 23:59 23:59 Output Total 750 / 750 Balance -750 / -750 Weight 53.524 kg Radiology Reports for the Last 24 Hours: Perirectal mass 7 x 8 x 5 by 9 x 10 x 6 cm, easily to track the colonoscopy past surgery Constitutional Constitutional: mild distress, thin and chronically ill appearing *Routine HEENT Exam Head: Present normocephalic and atraumatic Eye: Present EOMI, PERRL and normal accommodation ENT: Present mucous membranes moist *Routine Neck Exam Neck: Present supple and full ROM Routine Chest/Breast/Axilla Exam Comments: No chest wall pain was noted equal symmetrical respirations *Routine Respiratory Exam Respiratory: Present decreased breath sounds, CTA bilaterally, distant breath sounds, normal respiratory effort, able to speak in complete sentences and symmetric chest movement *Routine Cardiovascular Exam Cardiovascular: Present RRR, Normal S1, Normal S2 and tachycardia *Routine Abdominal Exam Abdominal: Present soft Comments: Colonoscopy in place loose stool present. Abdomen not distended, noting Rodriguez catheter in place with approximately 400 cc of light yellow urine *Routine Rectal Exam Rectal:: deferred *Routine Genitalia Exam Genitalia:: normal male (Rodriguez catheter in place) *Routine Extremities Exam Comments: Patient is able to ambulate normal movement of arms and legs Routine Back/Spine/Pelvis Exam Back/Spine: Present full ROM Comments: No signs of any deficits of the back he is able to move sit up and stand up sit down without any assistance *Routine Skin Exam Skin: Present intact Comments: Colonoscopy in place left side abdomen *Routine Neurological Exam Neurological: Present alert, oriented X3, CN II-XII intact, normal reflexes, moving all extremities and normal tone Routine Psychiatric Exam Psychiatric: Present normal affect, normal thought process, cooperative, good insight and good judgment Comments: Patient has full understanding of what is going on with his health condition , he does not want this to be treated, but has agreed to follow-up with Dr. Graf as we have gone over the plans for admission. Additional Findings:: Just noting that the patient, has not followed up for this potential treatment of this condition that may have prolonged his life he seems to be fully accepting of what is going on he is expressed to me though that his is also a DNR. His son is now home from the [employer] after custodial and is at bedside. They seem to have a good relationship, he expressed to his son the decision to be a DNR, and the son acknowledged that that was what mom was H&P: Result Impressions 1. Urinary retention possibly secondary to rectal cancer entering into urethra 2. Urinary tract infection with sepsis 3. Untreated perirectal cancer large mass with history of bleed in the past, presently with colic: Colostomy present Imaging and Cardiology CT scan - abdomen: Status: image reviewed by me Additional comments: Perirectal mass of 7.8 x 5.9 x 10.6 cm, no signs of free fluid at this time possible lymph node involvement possible urethral involvement, upper abdomen no acute finding Assessment and Plan *Assessment and plan (1) Acute urethral obstruction: Status: Inactive Category: Medical Code(s): N36.8 - Other specified disorders of urethra (2) Acute UTI: Status: Acute Category: Medical Code(s): N39.0 - Urinary tract infection, site not specified (3) Sepsis: Status: Acute Category: Medical Code(s): A41.9 - Sepsis, unspecified organism (4) Rectal cancer: Status: Inactive Category: Medical Code(s): C20 - Malignant neoplasm of rectum (5) Colostomy present on admission: Status: Inactive Category: Medical Code(s): Z93.3 - Colostomy status (6) Rectal mass: Status: Acute Category: Medical Code(s): K62.89 - Other specified diseases of anus and rectum (7) Pelvic lymphadenopathy: Status: Acute Category: Medical Code(s): R59.0 - Localized enlarged lymph nodes (8) Colon wall thickening: Status: Acute Category: Medical Code(s): K63.9 - Disease of intestine, unspecified (9) Leukocytosis: Status: Acute Qualifiers: Leukocytosis type: unspecified Qualified Code(s): D72.829 - Elevated white blood cell count, unspecified Category: Medical Code(s): D72.829 - Elevated white blood cell count, unspecified (10) Urinary retention: Status: Acute Category: Medical Code(s): R33.9 - Retention of urine, unspecified (11) History of elevated PSA: Status: Inactive Category: Medical Code(s): Z87.898 - Personal history of other specified conditions Plan 1. Acute urinary tract sepsis: After talking with the ER physician and going over all the labs showing positive leukocyte, monitoring vital signs with blood pressure and heart rate issues. Will go ahead and admit the patient at this time and treat for the above. The patient has full understanding that he has a perirectal cancer and that this is not can to be treated here but rate is refused transfer to . Patient has decided to be a complete DNR, this was also witnessed by his son as his father expressed his decision decision. 2. Perirenal mass diagnosed as adenocarcinoma, patient is a full understanding that were not able to treat this here. But that I will put in a case management consult that way we will make sure he has a follow-up with Dr. Graf. He had an appointment for July 22 but had to cancel that and for some reason it has never been rescheduled.. Patient also noting of having surgery at having a colostomy placed a couple of years ago. But has per my conversation with the ER physician refused to have chemotherapy or radiation done at . Patient is extremely upset with [facility] because he had just been 15 hours and in emergency room waiting for a bed. It has become apparent to me that he really does not want to have this treated and that he is excepted that 1 day will take his life. He only came in because he could not urinate well and was feeling bad. Noting his son is aware of his present condition and lack of treatment. I have talked with the son that I am my plan is to get with case management so we will have a follow-up with Dr. Graf if he could help him be able to make that appointment patient agreed with this and said that he would try and patient's son has just recently retired from the so we will be in the area. 3. Noting that the patient is a full DNR. I feel comfortable treating the patient here for the sepsis and the UTI.. I have explained to the patient that without transfer that we have nobody here that treats cancer as an inpatient that if he was to have a bleed our general surgeon. Are not trained in cancer treatment. The patient expressed he understood all of that he still did not want to go to and would like to be admitted to the floor. Orders have been placed to treat the patient's immediate emergent medical condition and for case management to help him with follow-up. All of this has been reviewed with the physician hospitalist who is working days
--- NOTE | 2024-09-29 21:20 | PC.NURSE ---
Patient arrived to floor via wheelchair from ED at 21:16.
[2024-09-29] MEDS: 0.9 % SODIUM CHLORIDE 1000ML 1,000 ML 75 ML IV (21:45)
[2024-09-29] MEDS: PANTOPRAZOLE 40MG TABLET 40 MG PO (21:45)
[2024-09-29 22:00] LABS: Reflex Lactic Add Lactic Reflex
[2024-09-29 22:33] LABS: Lactic Acid Follow Up (RFLX 1) 1.7 mmol/L (0.7-2.1)
[2024-09-29] MEDS: ACETAMINOPHEN 325MG TAB 650 MG PO (23:59)
[2024-09-30 04:00] VITALS: BP 159/76; PULSE 103; RESP 18; TEMP 36.7; O2SAT 97; BMI 21.4
[2024-09-30 06:33] LABS: Basophils % 0.1 % (0.1-2.0); Eosinophils % 0.1 % (0.1-12.0); Hematocrit 30.9 % (42.0-52.0); Hemoglobin 10.3 g/dL (14.1-18.0); Lymphocytes # 0.8 K/mm3 (0.7-4.5); Lymphocytes % 6.9 % (10-50); Mean Corpuscular HGB Conc 33.4 g/dL (31.8-35.4); Mean Corpuscular Hemoglobin 26.1 pg (27.0-31.2); Mean Corpuscular Volume 78.1 fl (80-94); Mean Platelet Volume 7.6 fl (7.4-10.4); Monocytes # 0.5 K/mm3 (0.1-1.0); Monocytes % 4.1 % (1.7-9.3); Neutrophils # 9.8 K/mm3 (1.8-7.8); Neutrophils % 88.8 % (37.0-80.0); Platelet Count 195 K/mm3 (142-424); Red Blood Count 3.96 M/mm3 (4.60-6.20); Red Cell Distribution Width 15.5 % (11.5-17.5); White Blood Count 11.1 K/mm3 (4.8-10.8)
[2024-09-30 06:46] LABS: MANUAL DIFFERENTIAL MANUAL DIFFERENTIAL (MANUAL DIFF)
[2024-09-30 06:54] LABS: Alanine Aminotransferase 19 U/L (12-78); Albumin Level 2.8 g/dl (3.5-5.0); Alkaline Phosphatase 281 U/L (38-126); Anion Gap 11.5 mEq/L (5-15); Aspartate Amino Transferase 27 U/L (17-59); Bilirubin,Total 0.7 mg/dl (0.2-1.3); Blood Urea Nitrogen 11 mg/dl (9-20); Calcium 8.3 mg/dl (8.4-10.2); Carbon Dioxide 23 mmol/L (22.0-30.0); Chloride 108 mmol/L (98-107); Creatinine Clearance Estimated 53 mL/min (50-200); Estimated Glomerular Filt Rate 133 ml/min (>60); GFR (African American) 161 ML/MIN (>60); Globulin 2.9 g/dL (1.3-3.2); Glucose 96 mg/dl (74-100); Magnesium 1.7 mg/dl (1.6-2.3); Potassium 3.5 mmoL/L (3.5-5.1); Sodium 139 mmol/L (136-145); Total Protein,Serum 5.7 g/dl (6.3-8.2)
--- NOTE | 2024-09-30 06:56 | PC.NURSE ---
Alert and oriented. Complained of back pain one time, treated per jan. Room air. Rodriguez in place, and draining. No other complaints. Pt does have mass on coccyx/back, [facility] [employer] aware. Call light in reach.
[2024-09-30 08:00] VITALS: BP 162/75; PULSE 105; RESP 18; TEMP 36.6; O2SAT 96
[2024-09-30 08:19] LABS: Lymphocytes % 11 % (10-50); Monocytes % 3 % (2-9); Neutrophils % 86 % (42-76); Platelet Estimate Normal; RBC Morphology Normal; Total Cells Counted 100
--- NOTE | 2024-09-30 08:36 | HMH.PHAINT1 ---
Pharmacy Intervention Comments: MEDICATION RECONCILIATION COMPLETED ON PATIENT USING EXTERNAL FILL HISTORY FROM PHARMACY. -[facility], [facility]
[2024-09-30] MEDS: PIPERACILLIN/TAZO 4.5 GM in 0.9 % SODIUM CHLORIDE 100 ML IV ×3 (09:22→21:37)
[2024-09-30] MEDS: ACETAMINOPHEN 325MG TAB 650 MG PO ×2 (09:32→20:37)
--- OUTSIDE RECORDS SUMMARY | 2024-09-30 12:49 | XMS_ITS ---
Author Organization Unknown ALLERGIES AND ADVERSE REACTIONS No information ASSESSMENT No information CHIEF COMPLAINT No information Problems Date Problem Icd10 12/28/2023 00:00:00 A-fib I48.91 12/28/2023 00:00:00 BPH (benign prostatic hyperp lasia) N40.0 12/28/2023 00:00:00 Hypothyroidism E03.9 OBJECTIVE DATA No information PHYSICAL EXAMINATION No information TREATMENT PLAN No information RESULTS No information REVIEW OF SYSTEMS No information SUBJECTIVE DATA No information VITAL SIGNS No information MEDICATIONS No information
--- OUTSIDE RECORDS SUMMARY | 2024-09-30 12:49 | XMS_ITS ---
Laboratory report Created on: September 26, 2024 CELESTE ALEXANDER : 1950 Sex: Male Author Name ANANYA POLANCO Organization Unknown PROBLEMS Problems List Code Description Z00.00 I10 RESULTS Laboratory Orders Date Order Code Test 2023-01-01 633474 CBC WITH DIFFERE NTIAL/PLATELET 2023-01-01 [id number] COMP. METABOLIC PANEL (14) 2023-01-01 [id number] LIPID PANEL Laboratory Results Date LOINC Test Value Unit Reference Range Interpre tation 2023-01-01 6690-2 WBC 6.8 X10E3/UL 3.4-10.8 2023-01-01 789-8 RBC 5.02 X10E6/UL 4.14-5.80 2023-01-01 718-7 HEMOGLOBIN 14.3 G/DL 13.0-17.7 2023-01-01 4544-3 HEMATOCRIT 43.9 % 37.5-51.0 2023-01-01 787-2 MCV 88 FL 79-97 2023-01-01 785-6 MCH 28.5 PG 26.6-33.0 2023-01-01 786-4 MCHC 32.6 G/DL 31.5-35.7 2023-01-01 788-0 RDW 12.5 % 11.6-15.4 2023-01-01 777-3 PLATELETS 190 X10E3/UL 433-546 5548-02-16 770-8 NEUTROPHILS 65 % 2023-01-01 736-9 LYMPHS 27 % 2023-01-01 5905-5 MONOCYTES 6 % 2023-01-01 713-8 EOS 2 % 2023-01-01 706-2 BASOS 0 % 2023-01-01 751-8 NEUTROPHILS (ABSOLUTE) 4.4 X10E3/UL 1.4-7.0 2023-01-01 731-0 LYMPHS (ABSOLUTE) 1.8 X10E3/UL 0.7-3.1 2023-01-01 742-7 MONOCYTES(ABSOLUTE) .4 X10E3/UL 0.1-0.9 2023-01-01 711-2 EOS (ABSOLUTE) .2 X10E3/UL 0.0-0.4 2023-01-01 704-7 BASO (ABSOLUTE) 0 X10E3/UL 0.0-0.2 2023-01-01 19502-6 IMMATURE GRANULOCYTES 0 % 2023-01-01 49874-0 IMMATURE GRANS (ABS) 0 X10E3/UL 0.0-0.1 2023-01-01 2345-7 GLUCOSE 129 MG/DL 70-99 H 2023-01-01 3094-0 BUN 10 MG/DL 8-27 2023-01-01 2160-0 CREATININE .69 MG/DL 0.76-1.27 L 2023-01-01 71006-4 EGFR 100 ML/MIN/1.7 3 >59 2023-01-01 3097-3 BUN/CREATININE RATIO 14 10-24 2023-01-01 2951-2 SODIUM 142 MMOL/L 966-971 3872-02-16 2823-3 POTASSIUM 3.8 MMOL/L 3.5-5.2 2023-01-01 2075-0 CHLORIDE 103 MMOL/L 96-106 2023-01-01 2028-9 CARBON DIOXIDE, TOTAL 22 MMOL/L 20-29 2023-01-01 55453-9 CALCIUM 9.5 MG/DL 8.6-10.2 2023-01-01 2885-2 PROTEIN, TOTAL 7.4 G/DL 6.0-8.5 2023-01-01 1751-7 ALBUMIN 4.5 G/DL 3.8-4.8 2023-01-01 30772-0 GLOBULIN, TOTAL 2.9 G/DL 1.5-4.5 2023-01-01 1759-0 A/G RATIO 1.6 1.2-2.2 2023-01-01 1975-2 BILIRUBIN, TOTAL .5 MG/DL 0.0-1.2 2023-01-01 6768-6 ALKALINE PHOSPHATASE 156 IU/L 44-121 H 2023-01-01 1920-8 AST (SGOT) 18 IU/L 0-40 2023-01-01 1742-6 ALT (SGPT) 13 IU/L 0-44 2023-01-01 2093-3 CHOLESTEROL, TOTAL 151 MG/DL 149-831 9673-02-161-8 TRIGLYCERIDES 173 MG/DL 0-149 H 2023-01-012084-9 HDL CHOLESTEROL 36 MG/DL >39 L 2023-01-01 18086-2 VLDL CHOLESTEROL ISA 30 MG/DL 5-40 2023-01-01 11611-7 LDL CHOL CALC ([facility]) 85 MG/DL 0-99
--- OUTSIDE RECORDS SUMMARY | 2024-09-30 12:49 | XMS_ITS ---
Laboratory report Created on: September 17, 2024 CELESTE ALEXANDER : 1950 Sex: Male Author Name ANSHUL RODRIGUEZ Organization Unknown PROBLEMS Problems List Code Description Z00.00 I10 E78.2 [id number] RESULTS Laboratory Orders Date Order Code Test 2022-06-02 [id number] URIC A+ESR-CASSIDY+A NA+RF QN+CRP 2022-06-02 [id number] TSH+FREE T4 2022-06-02 [id number] COMP. METABOLIC PANEL (14) 2022-06-02 [id number] PSA TOTAL+% FREE 2022-06-02 [id number] CBC WITH DIFFERE NTIAL/PLATELET 2022-06-02 866342 LIPID PANEL Laboratory Results Date LOINC Test Value Unit Reference Range Interpre tation 2022-06-02 3084-1 URIC ACID 4 MG/DL 3.8-8.4 2022-06-02 8061-4 ARMIDA DIRECT N NEGATIVE 2022-06-02 11262-4 RHEUMATOID FACTO R (RF) <10.0 IU/ML <14.0 2022-06-02 1988-5 C-REACTIVE PROTE IN, QUANT <1 MG/L 0-10 2022-06-02 4537-7 SEDIMENTATION RATE-WESTERGREN 9 MM/HR 0-30 2022-06-02 98900-8 TSH 2.68 UIU/ML 0.450-4.500 2022-06-02 3024-7 T4,FREE(DIRECT) 1.22 NG/DL 0.82-1.77 2022-06-02 2345-7 GLUCOSE 135 MG/DL 65-99 H 2022-06-02 3094-0 BUN 10 MG/DL 8-27 2022-06-02 2160-0 CREATININE .76 MG/DL 0.76-1.27 2022-06-02 33924-6 EGFR 97 ML/MIN/1.7 3 >59 2022-06-02 3097-3 BUN/CREATININE RATIO 13 10-24 2022-06-02 2951-2 SODIUM 141 MMOL/L 486-492 5333-07-18 2823-3 POTASSIUM 3.9 MMOL/L 3.5-5.2 2022-06-02 2075-0 CHLORIDE 102 MMOL/L 96-106 2022-06-02 2028-9 CARBON DIOXIDE, TOTAL 21 MMOL/L 20-29 2022-06-02 98715-0 CALCIUM 10 MG/DL 8.6-10.2 2022-06-02 2885-2 PROTEIN, TOTAL 7 G/DL 6.0-8.5 2022-06-02 1751-7 ALBUMIN 4.8 G/DL 3.8-4.8 2022-06-02 80808-4 GLOBULIN, TOTAL 2.2 G/DL 1.5-4.5 2022-06-02 1759-0 A/G RATIO 2.2 1.2-2.2 2022-06-02 1975-2 BILIRUBIN, TOTAL .8 MG/DL 0.0-1.2 2022-06-02 6768-6 ALKALINE PHOSPHATASE 116 IU/L 44-121 2022-06-02 1920-8 AST (SGOT) 18 IU/L 0-40 2022-06-02 1742-6 ALT (SGPT) 15 IU/L 0-44 2022-06-02 2857-1 PROSTATE SPECIFIC AG 11.1 NG/ML 0.0-4.0 H 2022-06-02 30870-1 PSA, FREE 1.87 NG/ML N/A 2022-06-02 28109-8 % FREE PSA 16.8 % 2022-06-02 6690-2 WBC 6.4 X10E3/UL 3.4-10.8 2022-06-02 789-8 RBC 5.17 X10E6/UL 4.14-5.80 2022-06-02 718-7 HEMOGLOBIN 16.2 G/DL 13.0-17.7 2022-06-02 4544-3 HEMATOCRIT 47.7 % 37.5-51.0 2022-06-02 787-2 MCV 92 FL 79-97 2022-06-02 785-6 MCH 31.3 PG 26.6-33.0 2022-06-02 786-4 MCHC 34 G/DL 31.5-35.7 2022-06-02 788-0 RDW 12.8 % 11.6-15.4 2022-06-02 777-3 PLATELETS 174 X10E3/UL 075-116 2669-07-18 770-8 NEUTROPHILS 66 % 2022-06-02 736-9 LYMPHS 26 % 2022-06-02 5905-5 MONOCYTES 4 % 2022-06-02 713-8 EOS 3 % 2022-06-02 706-2 BASOS 0 % 2022-06-02 751-8 NEUTROPHILS (ABSOLUTE) 4.2 X10E3/UL 1.4-7.0 2022-06-02 731-0 LYMPHS (ABSOLUTE) 1.6 X10E3/UL 0.7-3.1 2022-06-02 742-7 MONOCYTES(ABSOLUTE) .3 X10E3/UL 0.1-0.9 2022-06-02 711-2 EOS (ABSOLUTE) .2 X10E3/UL 0.0-0.4 2022-06-02 704-7 BASO (ABSOLUTE) 0 X10E3/UL 0.0-0.2 2022-06-02 46840-0 IMMATURE GRANULOCYTES 1 % 2022-06-02 61828-9 IMMATURE GRANS (ABS) 0 X10E3/UL 0.0-0.1 2022-06-02 2093-3 CHOLESTEROL, TOTAL 155 MG/DL 791-669 0799-07-18 2571-8 TRIGLYCERIDES 143 MG/DL 0-149 2022-06-02 2085-9 HDL CHOLESTEROL 40 MG/DL >39 2022-06-02 30081-9 VLDL CHOLESTEROL ISA 25 MG/DL 5-40 2022-06-02 27774-4 LDL CHOL CALC ([facility] [place]) 90 MG/DL 0-99
--- OUTSIDE RECORDS SUMMARY | 2024-09-30 12:49 | XMS_ITS ---
Author Organization [facility] ALLERGIES AND ADVERSE REACTIONS No information ASSESSMENT No information CHIEF COMPLAINT No information Vital Signs Bpsitting Date Temperature Weight Height Bmi Fieldcount Timerecorded 172/88 2024-06-01 98.0 107,0 5,3 18.95 5 08:00 128/80 2024-05-17 98.6 107,0 5,3 18.95 5 09:00 OBJECTIVE DATA No information PHYSICAL EXAMINATION No information TREATMENT PLAN No information PROBLEMS No information RESULTS No information REVIEW OF SYSTEMS No information SUBJECTIVE DATA No information MEDICATIONS No information
--- OUTSIDE RECORDS SUMMARY | 2024-09-30 12:50 | XMS_ITS | Encounter Summary ---
Author Organization [facility] Address [address] [id number] Care Team Providers Care Media Reconciliation Specialist Name Role Phone Pcp, No Primary Care Provider Unavailabl e Reason for Referral * Imaging (Routine) - Closed Specialty Diagnoses / Procedures Referred By Contbrad t Referred To Contact Diagnoses Rectal cancer (CMS/HCC) Procedures MR Pelvis w and wo IV Contrast Jeremy Cazares MD [id number] [place] [address] Phone: tel: fax: Referral ID Status Reason Start Date Expiration Date Visits Re quested Visits Authorized [id number] Closed 06/23/2024 12/23/2025 1 1 Encounter Details Date Type Department Care Team (Late st Contact Info) Description 06/23/2024 Orders Only [facility] [address] [place] [address] Jeremy Cazares MD [address] [facility] [address] [place] [address] Rectal cancer (CMS/HCC) (Primary Dx) Social History Tobacco Use Types Packs/Day Years Used Date Smoking Tobacco: Former Comments:Former smoker, 1965 -2007 1.5 ppd Alcohol Use Standard Drinks/Week Comments Never 0 (1 standard drink = 0.6 oz pur e alcohol) Humiliation, Afraid, Rape, and Kick questionnair e Answer Date Recorded Within the last year, have y ou been afraid of your partner or ex-partner? No 03/23/2024 Within the last year, have y ou been humiliated or emotionally abused in other ways by your partner or ex-partner? No Within the last year, have y ou been kicked, hit, slapped, or otherwise physically hurt by your partner or ex-partner? No 03/23/2024 Within the last year, have y ou been raped or forced to have any kind of sexual activity by your partner or ex-partner? No 03/23/2024 Hunger Vital Sign Answer Date Recorded Within the past 12 months, y ou worried that your food would run out before you got the money to buy more. Never true 03/23/20 24 Within the past 12 months, t he food you bought just didn't last and you didn't have money to get more. Never true 03/23/2024 PRAPARE - Transportation Answer Date Re corded In the past 12 months, has l ack of transportation kept you from medical appointments or from getting medications? No 06/2024 In the past 12 months, has l ack of transportation kept you from meetings, work, or from getting things needed for daily living? No 03/23/2024 Housing Stability Vital Sign Answer Jared e Recorded In the last 12 months, was t here a time when you were not able to pay the mortgage or rent on time? No 03/23/2024 Number of Places Lived in the Last Year Not on f ile 03/23/2024 In the last 12 months, was t here a time when you did not have a steady place to sleep or slept in a [place] [facility] [place] (including now)? No 03/23/2024 CAGE ASSESSMENT Answer Date Recorded Cage unable to access Not on file 03/23/2024 Cage max number of drinks Not on file 2023 Cage Beverages a week Not on file 03/23/2024 Have you ever felt you should CUT down on your d rinking? 0 03/23/2024 Have you been ANNOYED by people criticizing your drinking? 0 03/23/2024 Have you felt GUILTY about your drinking? 0 03/23/2024 Have you had a drink first t cristi in the morning (EYE-MICROSOFT WINDOWS ENGINEER) to steady your nerves or to get rid of a hangover? 0 03/23/2024 CAGE Questionnaire Score 0 024 Utilities Answer Date Recorded In the past 12 months has th e electric, gas, oil, or water company threatened to shut off services in your home? No 03/23/2024 Sex and Gender Information Value Date Recorded Sex Assigned at Male 03/23/2024 4:56 AM EDT Legal Sex Male 7:19 PM EDT Gender Identity Male 03/23/2024 4:56 AM EDT Sexual Orientation Not on file documented as of this encounter Plan of Treatment Scheduled Orders Name Type Priority Associated Diagnoses Orde r Schedule MR Pelvis w and wo IV Contrast Imaging Routine Rectal cancer (CMS/HCC) Expected: 06/30/2024, Expires: 12/24/2025 documented as of this encounter Visit Diagnoses Diagnosis Rectal cancer (CMS/HCC)- Primary Malignant neoplasm of rectum documented in this encounter Additional Health Concerns Infection Onset Date Last Indicated Resolved Time MRSA 03/28/2024 03/28/2024 Assessment Noted Time A fall risk assessment has been complete d for the patient 04/26/2024 10:58 AM EDT A Body Mass Index follow-up plan has been documented for the patient 05/05/2024 11:38 AM EDT documented as of this encounter Care Teams Media Reconciliation Specialist Relationship Specialty Start Date End Date Pcp, Mariela [address] [place] [address] PCP - General Family Medicine 03/23/24 documented as of this encounter
--- OUTSIDE RECORDS SUMMARY | 2024-09-30 12:50 | XMS_ITS | Encounter Summary ---
Author Organization [facility] Address [address] [place] [address] Care Team Providers Care Ends Breakage Clerk Name Role Phone Pcp, No Primary Care Provider Unavailabl e Reason for Visit * Reason Onset Date Comments Distress Screen Follow-up 06/02/2024 Encounter Details Date Type Department Care Team ([facility] st Contact Info) Description 06/02/2024 Telephone [facility] Multidisciplinary Oncology Clinic [address] [place] [phone] [address] [id number] Distress Screen Follow-up Social History Tobacco Use Types Packs/Day Years [...] place to sleep or slept in a group home (including now)? 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 (EYE-BUTTON CUTTING MACHINE OPERATOR) to steady your nerves or to get [...] on file documented as of this encounter Miscellaneous Notes * Telephone Encounter - Clifton Merino CSW - 06/02/2024 1:43 PM EDT Encounter Type: Distress Follow Up - Phone Call Disease Status: Established Patient Clinic Location: [facility] Disease Type: Colon & Rectum Education Provided: Psych-Onc Services Intervention Level: 3 Units (1 unit = 15 minutes): 1 Narrative: CNC FIELD SERVICE ENGINEER attempted to contact patient in response to distress screen score received at recentclinic visit. CNC FIELD SERVICE ENGINEER called mobile number and message state pt is not accepting calls at this time , and there was no option to leave a message. CNC FIELD SERVICE ENGINEER called second number that was listed has home number . Message said this number had been disconnected. CNC FIELD SERVICE ENGINEER was unable to leave a messages. CNC FIELD SERVICE ENGINEER will be available ongoing for future support and resource needs. documented in this encounter Plan of Treatment Not on file documented as of this encounter Visit Diagnoses Not on filedocumented in this encounter Additional Health Concerns Infection Onset Date Last Indicated Resolved Time MRSA 03/28/2024 03/28/2024 Assessment Noted Time A fall risk assessment has been complete d for the patient 04/26/2024 10:58 AM EDT A Body Mass Index follow-up plan has been documented for the patient 05/05/2024 11:38 AM EDT documented as of this encounter Care Teams Ends Breakage Clerk Relationship Specialty Start [place] [address] PCP - General Family Medicine 03/23/24 documented as of this encounter
--- OUTSIDE RECORDS SUMMARY | 2024-09-30 12:50 | XMS_ITS ---
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 METABOLIC PANEL (14) 2023-12-28 [id number] LIPID PANEL 2023-12-28 [id number] THYROID PANEL WI TH TSH 2023-12-28 [id number] PSA TOTAL (REFLE X TO FREE) Laboratory Results Date LOINC Test Value Unit Reference Range Interpre tation 2023-12-28 6690-2 WBC 6.7 X10E3/UL 3.4-10.8 2023-12-28 789-8 RBC 4.71 X10E6/UL 4.14-5.80 2023-12-28 718-7 HEMOGLOBIN 10.8 G/DL 13.0-17.7 L 2023-12-28 4544-3 HEMATOCRIT 35.6 % 37.5-51.0 L 2023-12-28 787-2 MCV 76 FL 79-97 L 2023-12-28 785-6 MCH 22.9 PG 26.6-33.0 L 2023-12-28 786-4 MCHC 30.3 G/DL 31.5-35.7 L 2023-12-28 788-0 RDW 13.3 % 11.6-15.4 2023-12-28 777-3 PLATELETS 274 X10E3/UL 555-561 3804-02-12 770-8 NEUTROPHILS 58 % 2023-12-28 736-9 LYMPHS 33 % 2023-12-28 5905-5 MONOCYTES 7 % 2023-12-28 713-8 EOS 2 % 2023-12-28 706-2 BASOS 0 % 2023-12-28 751-8 NEUTROPHILS (ABSOLUTE) 3.9 X10E3/UL 1.4-7.0 2023-12-28 731-0 LYMPHS (ABSOLUTE) 2.3 X10E3/UL 0.7-3.1 2023-12-28 742-7 MONOCYTES(ABSOLUTE) .5 X10E3/UL 0.1-0.9 2023-12-28 711-2 EOS (ABSOLUTE) .1 X10E3/UL 0.0-0.4 2023-12-28 704-7 BASO (ABSOLUTE) 0 X10E3/UL 0.0-0.2 2023-12-28 67666-5 IMMATURE GRANULOCYTES 0 % 2023-12-28 11074-7 IMMATURE GRANS (ABS) 0 X10E3/UL 0.0-0.1 2023-12-28 2345-7 GLUCOSE 132 MG/DL 70-99 H 2023-12-28 3094-0 BUN 10 MG/DL 8-27 2023-12-28 2160-0 CREATININE .75 MG/DL 0.76-1.27 L 2023-12-28 55801-3 EGFR 96 ML/MIN/1.7 3 >59 2023-12-28 3097-3 BUN/CREATININE RATIO 13 10-24 2023-12-28 2951-2 SODIUM 142 MMOL/L 844-717 8126-02-12 2823-3 POTASSIUM 4.9 MMOL/L 3.5-5.2 2023-12-28 2075-0 CHLORIDE 105 MMOL/L 96-106 2023-12-28 2028-9 CARBON DIOXIDE, TOTAL 24 MMOL/L 20-29 2023-12-28 31188-0 CALCIUM 9.8 MG/DL 8.6-10.2 2023-12-28 2885-2 PROTEIN, TOTAL 7.6 G/DL 6.0-8.5 2023-12-28 1751-7 ALBUMIN 4.5 G/DL 3.8-4.8 2023-12-28 22602-3 GLOBULIN, TOTAL 3.1 G/DL 1.5-4.5 2023-12-28 1759-0 A/G RATIO 1.5 1.2-2.2 2023-12-28 1975-2 BILIRUBIN, TOTAL .4 MG/DL 0.0-1.2 2023-12-28 6768-6 ALKALINE PHOSPHATASE 128 IU/L 44-121 H 2023-12-28 1920-8 AST (SGOT) 15 IU/L 0-40 2023-12-28 1742-6 ALT (SGPT) 8 IU/L 0-44 2023-12-28 2093-3 CHOLESTEROL, TOTAL 144 MG/DL 622-969 6217-02-12 2571-8 TRIGLYCERIDES 104 MG/DL 0-149 2023-12-28 2085-9 HDL CHOLESTEROL 46 MG/DL >39 2023-12-28 45445-1 VLDL CHOLESTEROL ISA 19 MG/DL 5-40 2023-12-28 66681-6 LDL CHOL CALC ([facility]) 79 MG/DL 0-99 2023-12-28 68169-5 TSH 2.48 UIU/ML 0.450-4.500 2023-12-28 3026-2 THYROXINE (T4) 8.1 UG/DL 4.5-12.0 2023-12-28 3050-2 T3 UPTAKE 27 % 24-39 2023-12-28 20205-3 FREE THYROXINE INDEX 2.2 1.2-4.9 2023-12-28 2857-1 PROSTATE SPECIFIC AG 15.4 NG/ML 0.0-4.0 H
--- OUTSIDE RECORDS SUMMARY | 2024-09-30 12:50 | XMS_ITS | Encounter Summary ---
Author Organization [facility] Address [address] [place] [address] Care Team Providers Care Marking Clerk Name Role Phone Pcp, No Primary Care Provider Unavailabl e Encounter Details Date Type Department Care Team (Late st Contact Info) Description 06/24/2024 Telephone [facility] [address] [place] [address] Jeremy Cazares MD [address] [facility] [address] [place] [phone] Social History Tobacco Use Types Packs/Day Years [...] drink first t cristi in the morning (EYE-HOT AIR FURNACE INSTALLER REPAIRER) to steady your nerves or to get [...] as of this encounter Plan of Treatment Not on [...] documented as of this encounter Care Teams Marking Clerk Relationship Specialty Start Date End Date Pcp, Mariela [address] [place] [address] PCP - General Family Medicine 03/23/24 documented as of this encounter
--- OUTSIDE RECORDS SUMMARY | 2024-09-30 12:50 | XMS_ITS | Encounter Summary ---
Author Organization [facility] Address [address] [place] [address] Care Team Providers Care Spinning Lathe Operator Hydraulic Name Role Phone Pcp, No Primary Care Provider Unavailabl e Encounter Details Date Type Department Care Team (Latest Contact Info) Description 04/26/2024 Travel Social History Tobacco Use Types Packs/Day Years Used Date Smoking Tobacco: Former Comments:Former smoker, 1964 -2007 1.5 ppd Alcohol Use Standard Drinks/Week [...] place to sleep or slept in a intermediate (including now)? 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 (EYE-SAFE DEPOSIT CLERK) to steady your nerves or to get [...] documented as of this encounter Care Teams Spinning Lathe Operator Hydraulic Relationship Specialty Start Date End Date Pcp, No [address] [place] [address] PCP - General Family Medicine 03/23/24 documented as of this encounter
--- OUTSIDE RECORDS SUMMARY | 2024-09-30 12:50 | XMS_ITS | Encounter Summary ---
Author Organization [facility] Address [address] [place] [address] Care Team Providers Care Master Fisher Name Role Phone Pcp, No Primary Care Provider Unavailabl e Encounter Details Date Type Department Care Team (Late st Contact Info) Description 07/11/2024 Orders Only External Location [address] [place] [address] Jeremy Cazares MD [address] [facility] [address] [place] [address] Social History Tobacco Use Types Packs/Day Years [...] place to sleep or slept in a skilled nursing (including now)? 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 (EYE-DOOR HANGER) to steady your nerves or to get [...] on file documented as of this encounter Procedures Procedure Name Priority Date/Time Associated Diagnosis Comments MR OUTSIDE IMAGES 07/11/2024 8:32 AM EDT documented in this encounter Results * MR transfer of outside films (07/11/2024 8:32 AM EDT) Anatomical Region Laterality Modality Magnetic Resonan ce 07/11/2024 8:32 AM EDT Jeremy Cazares MD IMG MRI PROCEDURES Final Resul t documented in this encounter Visit Diagnoses Not on filedocumented [...] documented as of this encounter Care Teams Master Fisher Relationship Specialty Start Date End Date Pcp, [place] [address] PCP - General Family Medicine 03/23/24 documented as of this encounter
--- OUTSIDE RECORDS SUMMARY | 2024-09-30 12:50 | XMS_ITS | Encounter Summary ---
Author Organization [facility] Address [address] [place] [address] Care Team Providers Care Electric Meter Repairer Apprentice Name Role Phone Pcp, No Primary Care Provider Unavailabl e Encounter Details Date Type Department Care Team (Latest Contact Info) Description 04/29/2024 Travel Social History Tobacco Use Types Packs/Day [...] place to sleep or slept in a [facility]p (including now)? 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 (EYE-CLIENT PROFESSIONAL) to steady your nerves or to get [...] documented as of this encounter Care Teams Electric Meter Repairer Apprentice Relationship Specialty Start Date End Date Pcp, No [address] [place] [address] PCP - General Family Medicine 03/23/24 documented as of this encounter
--- OUTSIDE RECORDS SUMMARY | 2024-09-30 12:50 | XMS_ITS | Encounter Summary ---
Author Organization [facility] Address [address] [place] [address] Care Team Providers Care Bait Packer Name Role Phone Pcp, No Primary Care Provider Unavailabl e Encounter Details Date Type Department Care Team (Late st Contact Info) Description 05/02/2024 Telephone [facility] [address] [place] [address] Jeremy Cazares MD [address] [facility] [address] [place] [phone] Social History Tobacco Use Types Packs/Day Years [...] drink first t cristi in the morning (EYE-ARCHITECTURE DRAFTER) to steady your nerves or to get [...] encounter Miscellaneous Notes * Telephone Encounter - Ordaz, Rima Miles RN - 05/02/2024 11:20 AM EDT Office note faxed. * Telephone Encounter - Amna Corcoran - 05/02/2024 11:14 AM EDT Patient Phone Message Reason for Call: Per [facility] in [place] asking for patient's office note from 04/26 faxed to: [phone] Best contact number and optimal time of day to reach caller: [phone] Note: Please do not reply to this message. Follow-up communication and further actions as a result of this message need to be communicated with the patient directly, if the patient is not active onMyChart. If the patient is active on MyChart, they will receive notification of the communication/outcome via [employer]. documented in this encounter Plan of Treatment [...] documented as of this encounter Care Teams Bait Packer Relationship Specialty Start Date End Date Pcp, [place] [address] PCP - General Family Medicine 03/23/24 documented as of this encounter
--- OUTSIDE RECORDS SUMMARY | 2024-09-30 12:50 | XMS_ITS | Encounter Summary ---
Author Organization [facility] Address [address] [id number] Care Team Providers Care Radiation Control Technician Name Role Phone Pcp, No Primary Care Provider Unavailabl e Reason for Visit * Reason Onset Date Comments radiology 07/14/2024 Encounter Details Date Type Department Care Team (Late st Contact Info) Description 07/14/2024 Telephone [facility] [address] [place] [address] Jeremy Cazares MD [address] [facility] [address] [place] [address] radiology Social History Tobacco Use Types Packs/Day Years [...] place to sleep or slept in a jail (including now)? 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 (EYE-BEAM DYER OPERATOR) to steady your nerves or to [...] Notes * Telephone Encounter - Ordaz, Rima M, RN - 07/14/2024 9:19 AM EDT faxed * Telephone Encounter - Minerva Acuna - 07/14/2024 9:10 AM EDT Patient Phone Message Reason for Call: LUIS FERNANDO Radiology is calling to get the pt most recent colonoscopy reports and office notes for his rectal. Tabatha is who called and she said that you can fax it to [phone] Best contact number and optimal time of day to reach caller: [phone] Note: Please do not reply to this message. Follow-up communication and further actions as a result of this message need to be communicated with the patient directly, if the patient is not active onMyChart. If the patient is active on MyChart, they will receive notification of the communication/outcome via [employer]iya. documented in this encounter Plan of Treatment [...] documented as of this encounter Care Teams Radiation Control Technician Relationship Specialty Start Date End Date Pcp, [place] [address] PCP - General Family Medicine 03/23/24 documented as of this encounter
--- OUTSIDE RECORDS SUMMARY | 2024-09-30 12:50 | XMS_ITS | Encounter Summary ---
Author Organization Healthcare Address [address] [place] [address] Care Team Providers Care Manager Community Relations Name Role Phone Pcp, No Primary Care Provider Unavailabl e Reason for Visit * Reason Comments Hematuria Encounter Details Date Type Department Care Team ([facility] Contact Info) Description 04/29/2024 5:17 PM EDT - 04/29/2024 11:03 PM EDT Emergency [facility] Emergency Department [address] [place] [address] Paloma Zuniga MD [address] [place] [address] Hematuria, unspecified type (Primary Dx); Problem with Matt catheter, initial encounter ([facility]) Discharge Disposition: Home or Self Care Social History Tobacco Use Types Packs/Day Years [...] 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You have been evaluated in the ED for your complaints. You may follow-up with your PCP next 3-5 business days as needed. If you experience any new or worsening symptoms please return to ED for further evaluation and management. Please keep your appointment with Urology as discussed. I have written for cefdinir to treat your UTI documented in this encounter Medications at Time of Discharge acetaminophen (Tylenol) 500 MG tablet Take 2 tablets (1,000 mg) by mouth 2 (two) times a day if needed. allopurinol (Zyloprim) 300 MG tablet Take 1 tablet (300 mg) by mouth 1 (one) time each day. 01/15/2024 carvedilol (Coreg) 25 MG tablet Take 1 tablet (25 mg) by mouth 2 (two) times a day. 30 tablet 04/12/2024 lisinopril 40 MG tablet Take 1 tablet (40 mg) by mouth 1 (one) time each day. 30 tablet 04/13/2024 omeprazole (PriLOSEC) [address] capsule Take 1 capsule (20 mg) by mouth 1 (one) time each day. 02/02/2024 simvastatin (Zocor) 40 MG tablet Take 1 tablet (40 mg) by mouth every night. 02/02/2024 tamsulosin (Flomax) 0.4 MG 24 hr capsule Take 2 capsules (0.8 mg) by mouth 1 (one) time each day. 02/08/2024 theophylline ER (Ananda-Dur) 300 MG 12 hr tablet Take 1 tablet (300 mg) by mouth 1 (one) time each day. 01/05/2024 cefdinir (Omnicef) 300 MG capsule Take 1 capsule (300 mg) by mouth 2 (two) times a day for 10 days. 20 capsule 04/29/2024 05/09/2024 documented as of this encounter Miscellaneous Notes * Progress Notes - Juan Zambrano - 04/29/2024 10:53 PM EDT Sae Johnson 73 y.o. male CSN: [id number] Admission: 04/29/2024 5:17 PM Primary Problem: No Principal Problem: There is no principal problem currently on the Problem List.Please update the Problem List and refresh. TANIA received page from RN that pt needs [employer] scheduled for discharge. Financial screening completed and meets 300% FPG. Pt agreed and signed consent. SW scheduled [employer] to transport pt to [address] [place] [address] . 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 No additional SW needs identified at this time. Please vocera or page [phone] for any further needs or safety concerns. Juan Zambrano SOLAR ENGINEER, PROJECT ASSOCIATE ED Social Work * Consults - Mir Gilman MD - 04/29/2024 7:49 PM EDTAssociated Order(s): Consult to Urology Consult to Urology Consult performed by: Mir Gilman MD Consult ordered by: Paloma Zuniga MD [facility] Urology Consult Note 06/14/24 Service Requesting Consultation: Emergency medicine CC: Concern for urinary leakage around catheter, poor drainage, questionable hematuria HPI: Sae Johnson is a 73 y.o. 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 OSH imaging at that time with concerns for large rectal mass consistent with recurrent rectal cancer. 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 He subsequently underwent colostomy creation on 03/[address] Cazares. He was last seen by Urology on 03/31/2024 and our recommendation was to continue current catheter and follow-up outpatient for consideration of possible suprapu bic catheter insertion. Patient states that he has had decreased drainage through his catheter and had more leakage around the catheter over the past few days. He also noticed some blood tinge to his urine. By time I saw the patient at bedside, his catheter was already replaced draining clearly yellow urine and he immediately reported relief. Vital signs stable and nontoxic appearing. Past Medical History: reviewed Past Medical History: Diagnosis Date Essential (primary) hypertension HTN (hypertension) Gout Pure hypercholesterolemia, unspecified Elevated cholesterol Past Surgical History: reviewed Past Surgical History: Procedure Laterality Date CHOLECYSTECTOMY N/A Cholecystectomy from [facility] Family History: reviewed Family History Problem Relation Name Age of Onset Lung cancer Father FH: lung cancer Social History: reviewed Social History Tobacco Use Smoking status: Former Tobacco comments: Former smoker, [id number] 1.5 ppd Substance Use Topics Alcohol use: Never Drug use: Never Outpatient Medications: Current Outpatient Medications Medication Instructions acetaminophen (TYLENOL) 1,000 mg, Oral, 2 times daily PRN allopurinol (ZYLOPRIM) 300 mg, Oral, Daily carvedilol (COREG) 25 mg, Oral, 2 times daily lisinopril 40 mg, Oral, Daily omeprazole (PRILOSEC) 20 mg, Oral, Daily rivaroxaban (XARELTO) 10 mg, Oral, Daily with dinner simvastatin (ZOCOR) 40 mg, Oral, Nightly tamsulosin (FLOMAX) 0.8 mg, Oral, Daily theophylline ER (ANANDA-DUR) 300 mg, Oral, Daily ROS: Review of Systems 14 point review of systems was obtained and is negative except for as above in HPI. PHYSICAL EXAM: Temp: [36.6 ??C (97.9 ??F)] 36.6 ??C (97.9 ??F) Heart Rate: [94] 94 Resp: [18] 18 BP: (181)/(78) 181/78 SpO2: [96 %-98 %] 98 % GEN: NAD HEENT: NCAT, EOMI RESP: Equal bilateral chest rise, normal work of breathing CV: Regular rate, appears well perfused ABD: Nondistended, right lower quadrant colostomy : [address] draining yellow urine. EXT: No gross deformities MSK: Full ROM in BL UE NEURO: No focal deficits, alert and oriented PSYCH: Normal mood and affect LABS: Results from last 7 days Lab Units 04/29/24 1815 WBC 10*3/uL 8.53 HEMOGLOBIN g/dL 10.8* HEMATOCRIT % 33.6* PLATELETS 10*3/uL 196 Results from last 7 days Lab Units 04/29/24 1815 SODIUM mmol/L 141 POTASSIUM mmol/L 3.9 CHLORIDE mmol/L 107 CO2 mmol/L 26 BUN mg/dL 14 CREATININE mg/dL 0.66* EGFR mL/min/1.73m*2 100.3 GLUCOSE mg/dL 109* CALCIUM mg/dL 9.1 Results from last 7 days Lab Units 04/29/24 1814 COLOR UA [place] SPEC GRAV U 1.021 PH UA 7.0 PROTEIN UR mg/dL >=300* GLUCOSE UA mg/dL Negative KETONES UA mg/dL Negative LEUKOCYTES UA Large* NITRITE UA Positive* RBC, URINE /HPF >50* WBC, URINE /HPF >50* SQUAMOUS /HPF 0 - 2 BACTERIA UR HPF Present Imaging: No relevant imaging Hospital Problem List: Active Problems: There are no active Hospital Problems. Assessment: Sae Johnson is a 73 y.o. male with history of large rectal mass status post diverting colostomy complicated by rectourethral fistula with last catheter placed on 03/30/2024. He presents to the emergency department due to decrease catheter drainage and leakage around the catheter. His catheter has not been exchanged since that time. By the time that I evaluated the patient at bedside, nursing had already replace the catheter and it was draining clear yellow urine. He can continue this current catheter and plan for outpatient follow-up that is already scheduled with Urology on 06/03/2024. Plan: -no acute urological intervention at this time -continue indwelling Matt catheter -obtain catheterized urine for culture from new catheter exchange and treat appropriately Mir Gilman MD Cosigned by Cristi Watson MD at 04/30/2024 8:06 PM EDT * ED Provider Notes - Christ Garcia DO - 04/29/2024 5:16 PM EDT Images from the original note were not included. - HPI Chief Complaint Patient presents with Hematuria HPI 73-year-old male with past medical history significant for HTN, gout, HLD, rectal adenocarcinoma s/p diverting colostomy, rectal urethral fistula s/p Matt, presents today for evaluation concerning leaking from around his Matt catheter. Patient also states that about 5 days ago he had blood in hisurine that has since cleared up after stopping his blood thinner. He was told to present to the ED by his nurse at his rehab facility. He also reports a burning sensation upon urination. He denies having any fevers, chills, chest pain shortness of breath, abdominal pain or any other associated symptoms at this time Noé Coma Scale Score: 15 Patient History Past Medical History: Diagnosis Date Essential (primary) hypertension HTN (hypertension) Gout Pure hypercholesterolemia, unspecified Elevated cholesterol Past Surgical History: Procedure Laterality Date CHOLECYSTECTOMY N/A Cholecystectomy from [facility] Family History Problem Relation Name Age of Onset Lung cancer Father FH: lung cancer Tobacco Use Smoking status: Former Tobacco comments: Former smoker, [phone] 1.5 ppd Substance Use Topics Alcohol use: Never Drug use: Never Immunization History Immunization History: reviewed Allergies: No Known Allergies Review of Systems Review of Systems Constitutional: Negative for chills and fever. HENT: Negative for ear pain and sore throat. Eyes: Negative for pain and visual disturbance. Respiratory: Negative for cough and shortness of breath. Cardiovascular: Negative for chest pain and palpitations. Gastrointestinal: Negative for abdominal pain and vomiting. Genitourinary: Positive for dysuria. Negative for hematuria. Musculoskeletal: Negative for arthralgias and back pain. Skin: Negative for color change and rash. Neurological: Negative for seizures and syncope. All other systems reviewed and are negative. Physical Exam ED Triage Vitals [04/29/24 1733] Temp Heart Rate Resp BP 36.6 ??C (97.9 ??F) 94 18 (!) 181/78 SpO2 Temp Source Heart Rate Source Patient Position 96 % Oral Monitor -- BP Location FiO2 (%) Right arm -- Physical Exam Vitals and nursing note reviewed. Constitutional: General: He is not in acute distress. Appearance: Normal appearance. He is well-developed. He is not ill-appearing, toxic-appearing or diaphoretic. HENT: Head: Normocephalic and atraumatic. Right Ear: External ear normal. Left Ear: External ear normal. Nose: Nose normal. No rhinorrhea. Mouth/Throat: Lips: [place]. Mouth: Mucous membranes are moist. Pharynx: Oropharynx is clear. Eyes: General: Lids are normal. No scleral icterus. Right eye: No discharge. Left eye: No discharge. Extraocular Movements: Extraocular movements intact. Conjunctiva/sclera: Conjunctivae normal. Neck: Thyroid: No thyromegaly. Vascular: No JVD. Trachea: Phonation normal. Cardiovascular: Rate and Rhythm: Normal rate and regular rhythm. Pulses: Normal pulses. Heart sounds: Normal heart sounds. No murmur heard. Pulmonary: Effort: Pulmonary effort is normal. No respiratory distress. Breath sounds: Normal breath sounds and air entry. Abdominal: Palpations: Abdomen is soft. Tenderness: There is no abdominal tenderness. Comments: Right-sided ostomy in place with pink stoma. Liquid brown stool in bag. Genitourinary: Comments: Matt catheter in place. No raina blood noted in bag. Musculoskeletal: General: No swelling, tenderness, deformity or signs of injury. Normal range of motion. Cervical back: Normal range of motion and neck supple. No tenderness. Right lower leg: No edema. Left lower leg: No edema. Skin: General: Skin is warm and dry. Capillary Refill: Capillary refill takes less than 2 seconds. Coloration: Skin is not jaundiced. Neurological: General: No focal deficit present. Mental Status: He is alert and oriented to person, place, and time. Mental status is at baseline. Sensory: Sensation is intact. Motor: Motor function is intact. Psychiatric: Attention and Perception: Attention normal. Mood and Affect: Mood and affect normal. Speech: Speech normal. Behavior: Behavior normal. ED Course & MDM ED Course as of 04/29/242236Apr 29, 2024 185 Blood, Urine(!): Large [EB] 1857 Leukocytes, Urine(!): Large [EB] 1857 Nitrite, Urine(!): Positive [EB] 1857 WBC, Urine(!): >50 [EB] 1857 Bacteria, Urine: Present [EB] ED Course User Index [EB] Christ Garcia DO Clinical Impressions as of 04/29/242236 Hematuria, unspecified type Problem with Matt catheter, initial encounter ([facility]) - Medical Decision Making 73-year-old male with past medical history significant for HTN, gout, HLD, rectal adenocarcinoma s/p diverting colostomy, rectal urethral fistula s/p Matt, presents today for evaluation concerning leaking from around his Matt catheter. Patient also states that about 5 days ago he had blood in hisurine that has since cleared up after stopping his blood thinner. He was told to present to the ED by his nurse at his rehab facility. He also reports a burning sensation upon urination. On assessment he was hemodynamically stable in no acute distress. Afebrile. He had a right-sided ostomy in place with a pink stoma and liquid brown stool in bag. He did not have any abdominal tenderness to palpation. Matt catheter was in place with no signs of raina blood in bag. Other physical exam findings unremarkable. Differential diagnosis include but not limited to UTI, Matt catheter malfunction, among others Orders Placed This Encounter Procedures Urine Culture Urinalysis with reflex microscopic AND reflex culture (IF UTI SUSPECTED) Urinalysis with reflex microscopic (Culture NOT Included) Urine Ramsey Panel PT-INR CBC w/diff CMP Urinalysis Microscopic Examination Urinalysis with reflex microscopic Urinalysis Microscopic Examination SEND KELLIE MESSAGE Consult to Urology Patient's urinalysis today did show large blood, large leukocytes, nitrite positive, greater than 50 RBCs and WBCs. Bacteria present. CMP was nonactionable. CBC showed a stable anemia with hemoglobinof 10.8. I did consult with Urology and discussed management and they have evaluated the patient and have recommended that patient's Matt be changed and recheck urine with new Matt. Patient has had his Matt exchanged without difficulty. Repeat urinalysis social and signs of infection. Given this and given that patient is symptomatic will treat UTI. Patient Verbalized understanding agreed with plan. Provided with return to ED precautions and instructions concerning PCP follow- up. Subsequently discharged home hemodynamically stable in no acute distress ED Prescriptions Medication Sig Dispense Start Date End Date Auth. Provider cefdinir (Omnicef) 300 MG capsule Take 1 capsule (300 mg) by mouth 2 (two) times a day for 10 days.20 capsule 04/29/2024 05/09/2024 Christ Garcia DO Discharge Instructions .You have been evaluated in the ED for your complaints. You may follow-up with your PCP next 3-5 business days as needed. If you experience any new or worsening symptoms please return to ED for further evaluation and management. Please keep your appointment with Urology as discussed. I have written for cefdinir to treat your UTI Disposition Discharge AVS (Printed 04/29/2024) Sign Off Checklist Clinical Impression: Complete ED Disposition: Complete - Christ Garcia DO Resident 04/29/242236 Cosigned by Paloma Zuniga MD at 04/29/2024 10:41 PM EDT Associated attestation - Paloma Zuniga MD - 04/29/2024 10:41 PM EDT I saw and evaluated the patient with the resident/fellow. I discussed the case with the resident/fellow and agree with the findings and plan as documented. * ED Triage Notes - Caron Flores RN - 04/29/2024 5:16 PM EDT Patient was brought to from [facility] via [facility], they report he has had hematuria and urination around the matt catheter insertion site recently, the matt catheterwas placed here at on or around March 23 reports patient, EMS reports the urologist wanted him brought here for evaluation . He recently got discharged from after staying nearly 24 days after a postop colostomy for colorectal CA. documented in this encounter Plan of Treatment Not on file documented as of this encounter Procedures Procedure Name Priority Date/Time Associated Diagnosis Comments URINALYSIS MICROSCOPIC FOR UA REFLEX STAT 04/29/2024 8:51 PM EDT URINALYSIS WITH REFLEX MICROSCOPIC STAT 04/29/2024 8:51 PM EDT PROTHROMBIN TIME(PT) / INR STAT 04/29/2024 6:15 PM EDT CBC WITH AUTO DIFFERENTIAL STAT 04/29/2024 6:15 PM EDT COMPREHENSIVE METABOLIC PANEL, PLASMA STAT 04/29/2024 6:15 PM EDT SEND KELLIE MESSAGE STAT 04/29/2024 6: 14 PM EDT URINALYSIS WITH REFLEX MICROSCOPIC STAT 04/29/2024 6:14 PM EDT URINE RAMSEY PANEL STAT 04/29/2024 6:14 PM EDT URINALYSIS MICROSCOPIC FOR UA REFLEX STAT 04/29/2024 6:14 PM EDT URINALYSIS WITH REFLEX MICROSCOPIC STAT 04/29/2024 6:14 PM EDT URINE CULTURE STAT 04/29/2024 6:14 PM EDT documented in this encounter Results * Urinalysis Microscopic Examination (04/29/2024 8:51 PM EDT) Urine Urine specimen obtained by clean catch procedure / Unknown Non-blood Collection / Unknown 04/29/2024 8:51 PM EDT 04/29/2024 8:57 PM EDT us Paloma Zuniga MD LAB URINE ORDERABLES Final Re sult [facility] [address] [place] [address] * (ABNORMAL) Urinalysis with reflex microscopic (04/29/2024 8:51 PM EDT) Color, Urine Yellow LAB URINALYSIS - AUTOMATED METHOD 04/29/2024 9:17 PM EDT [facility] Clarity, Urine Cloudy LAB URINALYSIS - AUTOMATED METHOD 04/29/2024 9:17 PM EDT [facility] Spec [place], Urine 1.020 <=1.005 to >=1.030 LAB URINALYSIS - AUTOMATED METHOD 04/29/2024 9:17 PM EDT [facility] pH, Urine 7.5 4.5 to 8 LAB URINALYSIS - AUTOMATED METHOD [facility] Protein, Urine >=300(A) Negative mg/dL LAB URINALYSIS - AUTOMATED METHOD 04/29/2024 9[facility] Glucose, Urine Negative Negative mg/dL LAB URINALYSIS - AUTOMATED METHOD 04/29/2024 9:17 PM EDT [facility] Ketones, Urine Negative Negative mg/dL LAB URINALYSIS - AUTOMATED METHOD 04/29/2024 9:17 PM [facility] Blood, Urine Large(A) Negative LAB URINALYSIS - AUTOMATED METHOD 04/29/2024 9:[facility] Bilirubin, Urine Negative Negative LAB URINALYSIS - AUTOMATED METHOD 04/29/2024 9:17 PM [facility] Urobilinogen, Urine 0.2 0.2 to 1.0 mg/dL LAB URINALYSIS - AUTOMATED METHOD 04/29/2024 9:[facility] Leukocytes, Urine Large(A) Negative LAB URINALYSIS - AUTOMATED METHOD 04/29/2024 9:17 PM [facility] Nitrite, Urine Positive(A) Negative LAB URINALYSIS - AUTOMATED METHOD 04/29/2024 9:[facility] RBC, Urine >50(A) 0 to 3 /HPF LAB URINALYSIS - AUTOMATED METHOD 04/29/2024 9:17 PM [facility] Comment:This result was prev iously suppressed from the chart. WBC, Urine >50(A) 0 to 5 /HPF LAB URINALYSIS - AUTOMATED METHOD 04/29/2024 9:17 PM EDT [facility] Comment:This result was prev iously suppressed from the chart. Squamous Epithelial Cells 0 - 2 0 to 5 /HPF LAB URINALYSIS - AUTOMATED METHOD 04/29/2024 9:17 PM EDT [facility] Comment:This result was prev iously suppressed from the chart. Hyaline Casts 0 - 2 0 to 5 /LPF LAB URINALYSIS - AUTOMATED METHOD 04/29/2024 9:17 PM EDT [facility] Comment:This result was prev iously suppressed from the chart. Bacteria, Urine Present Negative LAB URINALYSIS - AUTOMATED METHOD 04/29/2024 9:17 PM EDT [facility] Comment:This result was prev iously suppressed from the chart. Urine Urine specimen obtained by clean catch procedure / Unknown Non-blood Collection / Unknown 04/29/2024 8:51 PM EDT 04/29/2024 8:57 PM EDT us Paloma Zuniga MD LAB URINE ORDERABLES Final Re sult Performing Organization Address City/State/[facility] Co de Phone Number [facility] [address] [place] [address] * (ABNORMAL) CMP (04/29/2024 6:15 PM EDT) Glucose, Plasma 109(H) 74 - 99 mg/dL 04/29/2024 6:45 PM EDT [facility] BUN, Plasma 14 8 - 23 mg/dL 04/29/2024 6:45 PM EDT [facility] Creatinine, Plasma 0.66(L) 0.80 - 1.30 mg/dL 04/29/2024 6:45 PM EDT [facility] BUN/Creatinine Ratio 21 04/29/2024 6:45 PM EDT [facility] Sodium, Plasma 141 136 - 145 mmol/L 04/29/2024 6:45 PM EDT [facility] Potassium, Plasma 3.9 3.7 - 4.8 mmol/L 04/29/2024 6:45 PM EDT [facility] Chloride, Plasma 107 97 - 107 mmol/L 04/29/2024 6:45 PM EDT [facility] CO2, Plasma 26 22 - 29 mmol/L 04/29/2024 6:45 PM EDT [facility] Anion Gap 8 6 - 16 mmol/L 04/29/2024 6:45 PM EDT [facility] Total Calcium, Plasma 9.1 8.9 - 10.2 mg/dL 04/29/2024 6:45 PM EDT [facility] Total Protein 6.2(L) 6.3 - 7.9 g/dL 04/29/2024 6:45 PM EDT [facility] Albumin, Plasma 3.2(L) 3.5 - 5.2 g/dL 04/29/2024 6:45 PM EDT [facility] AST, Plasma 15 10 - 50 U/L 04/29/2024 6:45 PM EDT [facility] ALT, Plasma 13 10 - 50 U/L 04/29/2024 6:45 PM EDT [facility] Alkaline Phosphatase, Plasma 166(H) 40 - 115 U/L 04/29/2024 6:45 PM EDT [facility] Total Bilirubin, Plasma 0.3 0.2 - 1.1 mg/dL 04/29/2024 6:45 PM EDT [facility] eGFRcr 100.3 mL/min/1.7 3m*2 04/29/2024 6:45 PM EDT [facility] Comment:Reported eGFRcr in m L/min/1.73m2 is based the CKD-EPI 2020 equation that does not use a race coefficient. Blood Venous blood specimen / Unknown Venipuncture / Unknown 04/29/2024 6:15 PM EDT 04/29/2024 6:22 PM EDT us Paloma Zuniga MD LAB BLOOD ORDERABLES Final Re sult [facility] [address] [place] [id number] * (ABNORMAL) CBC w/diff (04/29/2024 6:15 PM EDT) WBC Count 8.53 3.70 - 10.30 10*3/uL LAB HEMATOLOGY METHOD 04/29/2024 6:27 PM EDT [facility] RBC Count 4.28(L) 4.60 - 6.10 10*6/uL LAB HEMATOLOGY METHOD 04/29/2024 6:27 PM EDT [facility] HGB 10.8(L) 13.7 - 17.5 g/dL LAB HEMATOLOGY METHOD 04/29/2024 6:27 PM EDT [facility] HCT 33.6(L) 40.0 - 51.0 % LAB HEMATOLOGY METHOD 04/29/2024 6:27 PM EDT [facility] Platelet Count 196 155 - 369 10*3/uL LAB HEMATOLOGY METHOD 04/29/2024 6:27 PM EDT [facility] MCV 79 79 - 98 fL LAB HEMATOLOGY METHOD 04/29/2024 6:27 PM EDT [facility] MCH 25.2(L) 26.0 - 32.0 pg LAB HEMATOLOGY METHOD 04/29/2024 6:27 PM EDT [facility] MCHC 32.1 30.7 - 35.5 g/dL LAB HEMATOLOGY METHOD 04/29/2024 6:27 PM EDT [facility] RDW 20.0(H) 11.5 - 14.5 % LAB HEMATOLOGY METHOD 04/29/2024 6:27 PM EDT [facility] MPV 9.2 8.8 - 12.5 fL LAB HEMATOLOGY METHOD 04/29/2024 6:27 PM EDT [facility] nRBC 0.0 <=0.0 per 100 WBCs LAB HEMATOLOGY METHOD 04/29/2024 6:27 PM EDT [facility] Differential Type Automated LAB HEMATOLOGY METHOD 04/29/2024 6:27 PM EDT [facility] Neutrophils % 64.0 % LAB HEMATOLOGY METHOD 04/29/2024 6:27 PM EDT [facility] Lymphocytes % 29.0 % LAB HEMATOLOGY METHOD 04/29/2024 6:27 PM EDT [facility] Monocytes % 5.0 % LAB HEMATOLOGY METHOD 04/29/2024 6:27 PM EDT [facility] Eosinophils % 2.0 % LAB HEMATOLOGY METHOD 04/29/2024 6:27 PM EDT [facility] Basophils % 0.0 % LAB HEMATOLOGY METHOD 04/29/2024 6:27 PM EDT [facility] Immature Granulocytes % 0.0 % LAB HEMATOLOGY METHOD 04/29/2024 6:27 PM EDT [facility] Neutrophils Absolute 5.39 1.60 - 6.10 10*3/uL LAB HEMATOLOGY METHOD 04/29/2024 6:27 PM EDT [facility] Lymphocytes Absolute 2.47 1.20 - 3.90 10*3/uL LAB HEMATOLOGY METHOD 04/29/2024 6:27 PM EDT [facility] Monocytes Absolute 0.45 0.30 - 0.90 10*3/uL LAB HEMATOLOGY METHOD 04/29/2024 6:27 PM EDT [facility] Eosinophils Absolute 0.17 0.00 - 0.50 10*3/uL LAB HEMATOLOGY METHOD 04/29/2024 6:27 PM EDT [facility] Basophils Absolute 0.03 0.00 - 0.10 10*3/uL LAB HEMATOLOGY METHOD 04/29/2024 6:27 PM EDT [facility] Immature Granulocytes Absolute 0.02 0.00 - 0.06 10*3/uL LAB HEMATOLOGY METHOD 04/29/2024 6:27 PM EDT [facility] Blood Venous blood specimen / Unknown Venipuncture / Unknown 04/29/2024 6:15 PM EDT 04/29/2024 6:22 PM EDT Narrative [facility] - 04/29/2024 6:27 PM EDT Therapeutic decision making should be based on absolute values, rather than percentages. Paloma Zuniga MD LAB BLOOD ORDERABLES Final Re sult [facility] [address] [place] [address] * PT-INR (04/29/2024 6:15 PM EDT) Prothrombin Time 13.6 12.0 - 14.3 sec 04/29/2024 6:34 PM EDT [facility] INR 1.1 0.9 - 1.1 04/29/2024 6:34 PM EDT [facility] Blood Venous blood specimen / Unknown Venipuncture / Unknown 04/29/2024 6:15 PM EDT 04/29/2024 6:22 PM EDT Narrative [facility] - 04/29/2024 6:34 PM EDT OPTIMAL INR RANGES FOR PATIENT ON ORAL ANTICOAGULANT THERAPY Prevention of venous thromboembolism ?INR 2.0 to 3.0 In patients with heart disease: Atrial fibrillation ?INR 2.0 to 3.0 Valvular heart disease ? INR 2.0 to 3.0 Tissue heart valves ?INR 2.0 to 3.0 Mechanical prosthetic valves ? INR 2.5 to 3.5 Prevention of recurrent [place] ? INR 2.5 to 3.5 Result [facility] us Paloma Zuniga MD LAB BLOOD ORDERABLES Final Re sult Performing Organization Address [facility] de Phone Number [facility] [address] [place] [address] * SEND KELLIE MESSAGE (04/29/2024 6:14 PM EDT) Urine Urine specimen obtained by clean catch procedure / Unknown Non-blood Collection / Unknown 04/29/2024 6:14 PM EDT 04/29/2024 7:04 PM EDT Result [facility] us Paloma Zuniga MD LAB URINE ORDERABLES Final Re sult Performing Organization Address [facility] de Phone Number [facility] [address] [place] [address] * (ABNORMAL) Urine Culture (04/29/2024 6:14 PM EDT) Culture >=100,000 CFU/mL Mixed urogenital , fecal, or skin nava present.(A ) 05/02/2024 7:18 AM EDT [facility] Comment:This is a corrected result. Previous organism was Gram Negative [place] on 04/30/2024 at 2215 EDT. Urine Urine specimen obtained by clean catch procedure / Unknown Non-blood Collection / Unknown 04/29/2024 6:14 PM EDT 04/29/2024 7:04 PM EDT Result Shabnam Zuniga MD LAB MICROBIOLOGY - GENERAL OR DERABLES Final Result Performing Organization Address [facility] de Phone Number [facility] [address] [place] [address] * Urinalysis Microscopic Examination (04/29/2024 6:14 PM EDT) Urine Urine specimen obtained by clean catch procedure / Unknown Non-blood Collection / Unknown 04/29/2024 6:14 PM EDT 04/29/2024 6:52 PM EDT us Paloma Zuniga MD LAB URINE ORDERABLES Final Re sult Performing Organization Address [facility] Co de Phone Number [facility] [address] [place] [address] * Urine Ramsey Panel (04/29/2024 6:14 PM EDT) Extra Sent for Culture 04/29/2024 9:02 PM EDT [facility] Urine Urine specimen obtained by clean catch procedure / Unknown Non-blood Collection / Unknown 04/29/2024 6:14 PM EDT 04/29/2024 7:04 PM EDT us Paloma Zuniga MD LAB URINE ORDERABLES Final Re sult Performing Organization Address [facility] Phone Number [facility] [address] [place] [address] * (ABNORMAL) Urinalysis with reflex microscopic (Culture NOT Included) (04/29/2024 6:14 PM EDT) Color, Urine [place] LAB URINALYSIS - AUTOMATED METHOD 04/29/2024 6:52 PM EDT [facility] Clarity, Urine Cloudy LAB URINALYSIS - AUTOMATED METHOD 04/29/2024 6:52 PM EDT [facility] Spec [place], Urine 1.021 <=1.005 to >=1.030 LAB URINALYSIS - AUTOMATED METHOD 04/29/2024 6:52 PM EDT [facility] pH, Urine 7.0 4.5 to 8 LAB URINALYSIS - AUTOMATED METHOD 04/29/2024 6:52 PM EDT [facility] Protein, Urine >=300(A) Negative mg/dL LAB URINALYSIS - AUTOMATED METHOD 04/29/2024 6:52 PM EDT [facility] Glucose, Urine Negative Negative mg/dL LAB URINALYSIS - AUTOMATED METHOD 04/29/2024 6:52 PM EDT [facility] Ketones, Urine Negative Negative mg/dL LAB URINALYSIS - AUTOMATED METHOD 04/29/2024 6:52 PM EDT [facility] Blood, Urine Large(A) Negative LAB URINALYSIS - AUTOMATED METHOD 04/29/2024 6:52 PM EDT [facility] Bilirubin, Urine Negative Negative LAB URINALYSIS - AUTOMATED METHOD 04/29/2024 6:52 PM EDT [facility] Urobilinogen, Urine 1.0 0.2 to 1.0 mg/dL LAB URINALYSIS - AUTOMATED METHOD 04/29/2024 6:52 PM EDT [facility] Leukocytes, Urine Large(A) Negative LAB URINALYSIS - AUTOMATED METHOD 04/29/2024 6:52 PM EDT [facility] Nitrite, Urine Positive(A) Negative LAB URINALYSIS - AUTOMATED METHOD 04/29/2024 6:52 PM EDT [facility] RBC, Urine >50(A) 0 to 3 /HPF LAB URINALYSIS - AUTOMATED METHOD 04/29/2024 6:52 PM EDT [facility] WBC, Urine >50(A) 0 to 5 /HPF LAB URINALYSIS - AUTOMATED METHOD 04/29/2024 6:52 PM EDT [facility] Squamous Epithelial Cells 0 - 2 0 to 5 /HPF LAB URINALYSIS - AUTOMATED METHOD 04/29/2024 6:52 PM EDT [facility] Hyaline Casts 6 - 10(A) 0 to 5 /LPF LAB URINALYSIS - AUTOMATED METHOD 04/29/2024 6:52 PM EDT [facility] Bacteria, Urine Present Negative LAB URINALYSIS - AUTOMATED METHOD 04/29/2024 6:52 PM EDT [facility] Renal Tubular Cells Present Absent LAB URINALYSIS - AUTOMATED METHOD 04/29/2024 6:52 PM EDT [facility] Urine Urine specimen obtained by clean catch procedure / Unknown Non-blood Collection / Unknown 04/29/2024 6:14 PM EDT 04/29/2024 6:52 PM EDT Narrative [facility] - 04/29/2024 6:52 PM EDT Urinalysis dipstick results may be inaccurate due to specimen color or an interfering substance in the specimen. 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
--- OUTSIDE RECORDS SUMMARY | 2024-09-30 12:50 | XMS_ITS | Encounter Summary ---
Author Organization Healthcare Address [address] [place] [address] Care Team Providers Care Commercial Lending Relationship Manager Name Role Phone Pcp, No Primary Care Provider Unavailabl e Encounter Details Date Type Department Care Team (Late st Contact Info) Description 04/26/2024 Telephone [facility] [address] [place] [address] Jeremy Cazares MD [address] [facility] [address] [place] [id number] Social History Tobacco Use Types Packs/Day Years [...] place to sleep or slept in a assisted (including now)? 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 * Telephone Encounter - Anjali Payton - 04/26/2024 11:30 AM EDT Clinical Concern/Question Reason for Call: Jackie is calling to seee if pt is ready to be picked up. If not she can go pickle solution maker another pt and then come back. Please call KANNAN to advise. Best contact number: Other: [phone] ext [phone] Optimal time of day to reach caller: ANYTIME Additional comments/information from caller: None Note: Please do not reply to this message. Follow-up communication and further actions as a result of this message need to be communicated with the patient directly, if the patient is not active onMyChart. If the patient is active on MyChart, they will receive notification of the communication/outcome via [employer]. documented in this encounter Plan of Treatment [...] documented as of this encounter Care Teams Commercial Lending Relationship Manager Relationship Specialty Start Date End Date Pcp, Mariela [address] [place] [address] PCP - General Family Medicine 03/23/24 documented as of this encounter
--- OUTSIDE RECORDS SUMMARY | 2024-09-30 12:50 | XMS_ITS | Encounter Summary ---
Author Organization Healthcare Address [address] [id number] Care Team Providers Care Master [place] Name Role Phone Pcp, No Primary Care Provider Unavailabl e Reason for Visit * Reason Onset Date Comments [facility] Same Day Appt/Overbook Request 04/28/2024 Encounter Details Date Type Department Care Team (Late st Contact Info) Description 04/28/2024 Telephone [place] [facility] [address] [place] [address] Martin Hernandez MD [address] [place] [address] [facility] Same Day Appt/Overbook Request Social History Tobacco Use Types Packs/Day Years [...] place to sleep or slept in a residential (including now)? 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 0 03/23/2024 CAGE Questionnaire Score 0 024 Utilities Answer Date Recorded In the past 12 months has th e [facility], gas, oil, or water company threatened to shut off services in your home? No 03/23/2024 Sex and Gender Information Value Date Recorded Sex Assigned at Male 03/23/2024 4:56 AM EDT Legal Sex Male 7:19 PM EDT Gender Identity Male 03/23/2024 4:56 AM EDT Sexual Orientation Not on file documented as of this encounter Miscellaneous Notes * Telephone Encounter - Comfort Guardado RN - 04/29/2024 3:53 PM EDT Called [facility] again and talked to Fiona, the nurse I spoke with a few minutes ago and relayed second message from urology provider. Fiona states that her plan will be to have pt sent in to ER as she is very concerned about his catheter. * Telephone Encounter - Comfort Guardado RN - 04/29/2024 3:47 PM EDT Called back to facility and told nurse in charge response from provider. She states she understandsand is in agreement with this, adding that pt has had other episodes of blood in urine and they have stopped his blood thinner. * Telephone Encounter - Comfort Guardado RN - 04/28/2024 3:52 PM EDT Returned call to pt caregiver/ nurse, Brenda, who explains pt is having urine leaking around catheter and states it is not spasms as there is no pain associated with it. Pt still having clear yellow urine coming through catheter. Brenda states that last week thre was blood noted in urine bag for two days and after that it cleared up but since then it has been leaking around the catheter. Brenda states this is very embarrassing for the patient and they would like pt to be able to be seen sooner or have permission to flush and or change the catheter. After reviewing notes, I cautioned against doing this and let Brenda know to wait to hear from provider due to pt dynamic health situation. BrendalVU and agreed to this plan. * Telephone Encounter - Kaitlin Mesa - 04/28/2024 11:38 AM EDT Same Day Appt/Overbook Request Reason for Call: Asked to see pt sooner due to his matt leaking. They were directed to not change it on order and asked if it can be changed or seen sooner because of the leakage. Best contact number: Other: [phone] ext [phone] F: [phone] Optimal time of day to reach caller: ANYTIME Additional comments/information from caller: None Note: Please do not reply to this message. Follow-up communication and further actions as a result of this message need to be communicated with the patient directly, if the patient is not active onMyChart. If the patient is active on MyChart, they will receive notification of the communication/outcome via [employer]. documented in this encounter Plan of Treatment [...] as of this encounter Care Teams Master [place] Relationship Specialty Start Date End Date Pcp, [place] [address] PCP - General Family Medicine 03/23/24 documented as of this encounter
--- OUTSIDE RECORDS SUMMARY | 2024-09-30 12:50 | XMS_ITS | Encounter Summary ---
Author Organization Healthcare Address [address] [place] [address] Care Team Providers Care Abalone Fisherman Name Role Phone Pcp, No Primary Care Provider Unavailabl e Reason for Referral * Consultation (Routine) - Authorized Specialty Diagnoses / Procedures Referred By Contac t Referred To Contact Medical Oncology Diagnoses Rectal cancer (CMS/HCC) Jeremy Cazares MD [address] [address] Phone: tel: fax: Referral ID Status Reason Start Date Expiration Date Visits Requested Visits Authorized [id number] Authorized Specialty Services Required 04/26/2024 10/26/2025 1 1 Scheduling Instructions Rectal Cancer - Needs medical oncology soon (2 wks) with Dr. Olivier Gillis at [facility]. * Imaging (Urgent) - Authorized Specialty Diagnoses / Procedures Referred By Contac t Referred To Contact Acute Care Hospital Diagnoses Rectal cancer (CMS/HCC) Procedures MR Pelvis w and wo IV Contrast Jeremy Cazares MD [address] [address] Phone: tel: fax: [facility] [address] [place] [address] Phone: tel: Referral ID Status Reason Start Date Expiration Date V isits Requested Visits Authorized [id number] Authorized 04/26/2024 10/26/2025 1 1 Reason for Visit * Reason Comments Follow-up Rectal Cancer Encounter Details Date Type Department Care Team (Late st Contact Info) Description 04/26/2024 10:15 AM EDT Office Visit [facility] Multidisciplinary Oncology Clinic [address] [place] [address] Jeremy Cazares MD [address] [place] [id number] Rectal cancer (CMS/HCC) (Primary Dx) Social History Tobacco Use Types Packs/Day Years Used Date Smoking Tobacco: Former Tobacco Cessation:Counseling Given: Not Answered Comments:Former smoker, [id number] 1.5 ppd Alcohol Use Standard Drinks/Week Comments [...] place to sleep or slept in a penitentiary (including now)? 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 (EYE-SLIP OPERATOR) to steady your nerves or to [...] Sign Reading Time Taken Comments Blood Pressure 112/63 04/26/2024 10:57 AM EDT Pulse 69 04/26/2024 10:57 AM EDT Temperature 36.8 ??C (98.2 ??F) 04/26/2024 10:57 AM E DT Respiratory Rate - - Oxygen Saturation 97% 04/26/2024 10:57 AM EDT Inhaled Oxygen Concentration - - Weight 53.3 kg (117 lb 8.1 oz) 04/26/2024 10:57 AM EDT Height 160 cm (5' 3 ) 04/26/2024 10:57 AM EDT Body Mass Index 20.82 04/26/2024 10:57 AM EDT documented in this encounter Miscellaneous Notes * Progress Notes - Sudha Villagran DO - 04/26/2024 10:15 AM EDT COLORECTAL SURGERY FOLLOW-UP NOTE Patient Information Patient Name: Sae Johnson Date of : 1950 REFERRING PHYSICIAN: No ref. provider found Encounter Date: 04/26/2024 Chief Complaint: follow up History of Present Illness: 73M with prior LAR for stage III colon cancer (2019), noncompliant with adjuvant chemotx presentingfrom OSH with large rectal mass c/w recurrent rectal cancer and c/f perforation. He was taken to the OR on 03/30 and is now s/o flex sig and colostomy creation. 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 Urology was consulted and recommended matt catheter and suprapubic c atheter in the future. Patient is doing well. Tolerating diet. Still in rehab. Having ostomy function. He would like the matt to be removed. Past Medical History: has a past medical history of Essential (primary) hypertension, Gout, and Pure hypercholesterolemia, unspecified. Past Surgical History: has a past surgical history that includes Cholecystectomy (N/A). Family History: family history includes Lung cancer in his father.. Social History: reports that he has quit smoking. He does not have any smokeless tobacco history onfile. He reports that he does not drink alcohol and does not use drugs.. Review of Systems: A review of systems was conducted with the patient. The following systems were reviewed: (1) Constitutional, (2) Eyes, (3) Ears, Nose, Mouth, Throat, (4) Cardiovascular, (5) Respiratory, (6) Gastrointestinal, (7) Genitourinary, (8) Musculoskeletal, (9) Integumentary, (10) Neurological, (11) Psychiatric, (12) Endocrine, (13) Hematologic/Lymphatic, (14) Allergic/Immunologic. These are all negative with exception to what was noted in the HPI. Medications: Current Outpatient Medications Medication Sig Dispense Refill acetaminophen (Tylenol) 500 MG tablet Take 2 tablets (1,000 mg) by mouth 2 (two) times a day if needed. allopurinol (Zyloprim) 300 MG tablet Take 1 tablet (300 mg) by mouth 1 (one) time each day. carvedilol (Coreg) 25 MG tablet Take 1 tablet (25 mg) by mouth 2 (two) times a day. 30 tablet 0 lisinopril 40 MG tablet Take 1 tablet (40 mg) by mouth 1 (one) time each day. 30 tablet 0 omeprazole (PriLOSEC) [address] capsule Take 1 capsule (20 mg) by mouth 1 (one) time each day. rivaroxaban (Xarelto) 10 MG tablet Take 1 tablet (10 mg) by mouth 1 (one) time each day with dinnerfor 14 days. 14 tablet 0 simvastatin (Zocor) 40 MG tablet Take 1 tablet (40 mg) by mouth every night. tamsulosin (Flomax) 0.4 MG 24 hr capsule Take 2 capsules (0.8 mg) by mouth 1 (one) time each day. theophylline ER (Ananda-Dur) 300 MG 12 hr tablet Take 1 tablet (300 mg) by mouth 1 (one) time each day. No current facility-administered medications for this visit. Objective: Wt Readings from Last 2 Encounters: 03/31/24 54 kg (119 lb 0.8 oz) There were no vitals taken for this visit. PHYSICAL EXAM: General: Patient is well-appearing. NAD. A&O. HENT: Normocephalic, MMM, No tracheal deviation Eyes: EOMI, no scleral icterus Chest: Equal chest rise bilaterally, Normal respiratory effort on RA Heart: Regular rate. No LE edema. Abdomen: Soft, nondistended, nontender. No rebound tenderness or guarding. Ostomy in place. Extremities: Atraumatic, warm Skin: Color, turgor normal. No rashes or lesions. Psychiatric: Affect and behavior appropriate Neuro: No focal deficits, GCS 15 Body mass index is 20.82 kg/m??. LABORATORIES AND STUDIES: I personally reviewed all the laboratory examinations and imaging studies. Lab Results Component Value Date WBC 9.75 04/04/2024 RBC 5.06 04/04/2024 HGB 12.0 (L) 04/04/2024 HCT 38.5 (L) 04/04/2024 MCV 76 (L) 04/04/2024 MCV 87 07/02/2019 MCHC 31.2 04/04/2024 RDW 20.9 (H) 04/04/2024 PLT 286 04/04/2024 MPV 8.4 (L) 04/04/2024 Lab Results Component Value Date BUN 9 04/04/2024 CL 104 04/04/2024 NA 136 04/04/2024 K 3.8 04/04/2024 CA 8.8 (L) 07/02/2019 TP 5.5 (L) 03/31/2024 AST 14 03/31/2024 ALT 11 03/31/2024 No results found for: PREALBUMIN No results found for: CEA I visualized the recent imaging and discussed the current radiology findings with the patient in detail and answered all questions. === 03/23/24 === CT CHEST W IV CONTRAST - Narrative - CLINICAL INDICATION: Abdominal pain, acute, nonlocalized TECHNIQUE: Multiple axial CT images were obtained from thoracic inlet through pubic symphysis following administration of IV contrast, Omnipaque 300, 100 mL. Reformatted images of the abdomen and pelvis in the coronal and sagittal planes were generated from the axial data set to facilitate diagnostic accuracy. Total DLP (Dose-Length Product): 381.19 mGy.cm. Please note: The reported value represents the total of one or more individual components during the CT acquisition on this date and at this time, and as such, the same value may appear in more than one CT report depending on the interpreting/reporting physicians. COMPARISON: CT from May 02, 2019. FINDINGS: Chest: Lymph Nodes and Mediastinum: No lymphadenopathy by CT size criteria. No mediastinal mass lesions. No suspicious thyroid findings. Cardiovascular: The heart is normal in caliber. Thoracic great vessels are patent. Coronary arterial calcification is present. Lungs and Pleura: No suspicious lung nodules to suggest metastatic disease. Emphysematous changes are present. There are moderate bilateral pleural effusions with compressive atelectasis. Musculoskeletal and Body Wall: No clearly aggressive bone lesions. Abdomen/Pelvis: Solid Abdominal Organs: Liver contour is smooth. No discrete suspicious focal liver lesions. Absentgallbladder. Unremarkable pancreas and spleen. Mild thickening of the body of the left adrenal gland. No discrete adrenal mass. No hydronephrosis. There is a long-standing 1.7 cm hyperdense nodule arising from the right kidney (series 4 image 98). This has somewhat decreased in size in comparison to the prior CT from April 2019. This is favored to represent a hemorrhagic cyst. Further bilateral renal cysts are present.. GI Tract/Mesentery/Peritoneum: Large and small bowel appear normal in caliber. Fluid-filled distended, large bowel is noted with mild wall thickening at the level of the sigmoid and upper rectum.. Please see below Pelvic Viscera: There is wall thickening of the anal canal and rectum. There are associated presumed surgical clips. Along the right perimeter of the rectum there is a fluid collection measuring 2.2 cm in thickness (series 4 image 256). The anteroposterior extent is approximately 6.6 cm. This is noted to contain locules of gas and also seemingly communicates anteriorly and inferiorly with the membranous urethra. There is a small amount of gas along the penile corpora. Urethral catheter is noted. Prostatomegaly. Lymph Nodes/Vasculature: Aortoiliac vasculature demonstrates moderate atherosclerotic changes. No convincing lymphadenopathy by CT size criteria. Free Fluid:Trace Musculoskeletal and Body Wall:There are degenerative changes of the spine. No clearly aggressive bone lesions. - Impression - Chest: No clear evidence of metastatic disease. Moderate bilateral pleural effusions are present Abdomen/Pelvis: Irregular thickening of the rectum as discussed. Horseshoe shaped perirectal abscess as discussed abutting the prostate anteriorly with possible communication with the membranous urethra. CRITICAL RESULT: No. COMMUNICATION: Per this written report. Drafted by Levi Mccord MD on 03/27/2024 2:04 PM Final report signed by Levi Mccord MD on 03/27/2024 2:19 PM No results found for this or any previous visit. PATHOLOGY: Final Diagnosis (no units) Date/Time Value 03/30/2024 1419 A. RECTUM, BIOPSY: - MODERATELY DIFFERENTIATED ADENOCARCINOMA, RECURRENT (HISTORY OF COLORECTAL ADENOCARCINOMA IN 2019). B. OMENTUM, EXCISION: - NEGATIVE FOR TUMOR. ASSESSMENT AND PLAN: 73M with prior LAR for stage III colon cancer (2018), noncompliant with adjuvant chemotx presentingfrom OSH with large rectal mass c/w recurrent rectal cancer and c/f perforation. He was taken to the OR on 03/30 and is now s/o flex sig and colostomy creation. 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 He is doing well postoperatively. Matt needs to stay in given fistula. His original pathology from 2019 was T3 N1 lesion. Positive lymphovascular invasion. He will need an MRI of the pelvis and referral to medical oncology. MRI pelvis, f/u 3 months Medical oncology referral Cosigned by Jeremy Cazares MD at 05/05/2024 11:38 AM EDT Associated attestation - Jeremy Cazares MD - 05/05/2024 11:38 AM EDT I saw and evaluated the patient with the resident/fellow. I discussed the case with the resident/fellow and agree with the findings and plan as documented. Mr. 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 Remote history of low anterior resection with limited follow-up completed. Patient has an existing Matt catheter in place to help control drainage from the fistula. Presents today for follow-up. Slowly improving. Locally advanced tumor noted. PLAN FOLLOWS: MRI PELVIS. Ambulatory referral to medical oncology. documented in this encounter Plan of Treatment Scheduled Orders Name Type Priority Associated Diagnoses Orde r Schedule MR Pelvis w and wo IV Contrast Imaging Routine Rectal cancer (CMS/HCC) Expected: 04/26/2024 (Approximate), Expires: 10/26/2025 Scheduled Referrals Name Type Priority Associated Diagnoses Order Schedule Ambulatory referral to Medical Oncology Outpatient Referral Routine Rectal cancer (CMS/HCC) 1 Occurrences starting 04/26/2024 until 10/26/2025 documented as of this encounter Visit Diagnoses [...] documented as of this encounter Care Teams Abalone Fisherman Relationship Specialty Start Date End Date Pcp, No [address] [place] [address] PCP - General Family Medicine 03/23/24 documented as of this encounter
--- OUTSIDE RECORDS SUMMARY | 2024-09-30 12:50 | XMS_ITS | Clinical Summary ---
Author Organization [facility] Address [address] [place] [address] Care Team Providers Care Sales Recruiter Name Role Phone Pcp, No Primary Care Provider Unavailabl e Allergies No known active allergies Medications allopurinol (Zyloprim) 300 MG tablet Take 1 tablet (300 mg) by mouth 1 (one) time each day. 01/15/2024 Active omeprazole (PriLOSEC) [address] capsule Take 1 capsule (20 mg) by mouth 1 (one) time each day. 02/02/2024 Active simvastatin (Zocor) 40 MG tablet Take 1 tablet (40 mg) by mouth every night. 02/02/2024 Active tamsulosin (Flomax) 0.4 MG 24 hr capsule Take 2 capsules (0.8 mg) by mouth 1 (one) time each day. 02/08/2024 Active theophylline ER (Ananda-Dur) 300 MG 12 hr tablet Take 1 tablet (300 mg) by mouth 1 (one) time each day. 01/05/2024 Active acetaminophen (Tylenol) 500 MG tablet Take 2 tablets (1,000 mg) by mouth 2 (two) times a day if needed. Active carvedilol (Coreg) 25 MG tablet Take 1 tablet (25 mg) by mouth 2 (two) times a day. 30 tablet 04/12/2024 Active rivaroxaban (Xarelto) 10 MG tablet Take 1 tablet (10 mg) by mouth 1 (one) time each day with dinner for 14 days. 14 tablet 04/13/2024 Active lisinopril 40 MG tablet Take 1 tablet (40 mg) by mouth 1 (one) time each day. 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 Rectal cancer 03/23/2024 Encounters Date Type Department Care Team Description 07/14/2024 Telephone [facility] [address] [place] [address] Jeremy Cazares MD radiology 07/11/2024 Orders Only External Location [address] [place] [address] Jeremy Cazares MD from Last 3 Months Immunizations Name Administration Dates Next Due Moderna COVID-19 Vaccine (Center Administrator) 12+ years ,01/30/2021 Family History Medical History Relation Name Comments Lung cancer Father FH: lung cancer Relation Name Status Comments Father Social History Tobacco Use Types Packs/Day Years Used Date Smoking Tobacco: Former Tobacco Cessation:Counseling Given: Not Answered Comments:Former smoker, [id number] 1.5 ppd Alcohol Use Standard Drinks/Week Comments [...] medical appointments or from getting medications? No 050 06/2024 In the past 12 months, has [...] place to sleep or slept in a long term (including now)? 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) to steady your nerves or to [...] AM EDT Sexual Orientation Not on file Last Filed Vital Signs Vital Sign Reading Time Taken Comments Blood Pressure 162/73 04/29/2024 10:30 PM EDT Pulse 94 04/29/2024 5:33 PM EDT Temperature 36.6 ??C (97.9 ??F) 04/29/2024 5:33 PM ED T Respiratory Rate 18 04/29/2024 5:33 PM EDT Oxygen Saturation 96% 04/29/2024 10:30 PM EDT Inhaled Oxygen Concentration - - Weight 52.2 kg (115 lb) 04/29/2024 5:33 PM EDT Height 160 cm (5' 3 ) 04/26/2024 10:57 AM EDT Body Mass Index 20.37 04/26/2024 10:57 AM EDT Plan of Treatment Health Maintenance Due Date Last Done Comments [facility]-Depression Screening 1950 [facility]-Hepatitis C Screening 1950 [facility]-Medicare Annual Wellness (AWV) 1950 [facility]-Infant/Child/Adol SDOH Screenings 1950 [facility]-Pneumococcal Vaccine: 65 + Years (1 of 2 - PCV) 1958 [facility]-DTaP,Tdap,and Td Vaccine s (1 - Tdap) 1971 [facility]-Zoster Vaccines (1 of [address]) [address] Colonography 1997 Colonoscopy 1997 FIT-DNA 1997 FIT 1997 FOBT 1997 Sigmoidoscopy 1997 [facility]-Colorectal Cancer Screening 1997 [facility]-Abdominal Aortic Aneurys m (AAA) Screening 2017 [id number] Vaccine (3 - Moderna risk series) 03/27/2021 02/27/2021, 01/30/2021 [facility]-Influenza Vaccine (#1) 2024 [facility]- SDOH Screenings 09/23/2024 [facility]-Adult SDOH Screenings 09/23/2024 03/23/2024 [facility]-RSV Vaccine: 60+ Years o r (1 - 1-dose 75+ series) 2027 [facility]-HIB Vaccines Aged Out No longer e ligible based on patient's age to complete this topic [facility]-HPV Vaccines Aged Out No longer e ligible based on patient's age to complete this topic [facility]-Hepatitis A Vaccines Aged Out No longer eligible based on patient's age to complete this topic [facility]-IPV Vaccines Aged Out No longer e ligible based on patient's age to complete this topic [facility]-Rotavirus Vaccines Aged Out No lo nger eligible based on patient's age to complete this topic Procedures Procedure Name Priority Date/Time Associated Diagnosis Comments MR OUTSIDE IMAGES 07/11/2024 8:32 AM EDT from Last 3 Months Results * MR transfer of outside films (07/11/2024 8:32 AM EDT) Anatomical Region Laterality Modality Magnetic Resonan ce 07/11/2024 8:32 AM EDT us Jeremy Cazares MD IMG MRI PROCEDURES Final Resul t from Last 3 Months Additional Health Concerns Infection Onset Date Last Indicated 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 Yes Care Teams Sales Recruiter Relationship Specialty Start Date End Date Pcp, No [address] [place] [address] PCP - General Family Medicine 03/23/24
--- OUTSIDE RECORDS SUMMARY | 2024-09-30 12:50 | XMS_ITS | Encounter Summary ---
Author Organization Healthcare Address [address] [place] [id number] Care Team Providers Care Corrugated Box Machine Operator Name Role Phone Pcp, No Primary Care Provider Unavailabl e Reason for Visit * Reason Onset Date Comments HCN Clinical Concern/Question 05/02/2024 Encounter Details Date Type Department Care Team (Late st Contact Info) Description 05/02/2024 Telephone PFE SCHEDULING [address] [place] [id number] Jeremy Cazares MD [address] [facility] [address] [place] [phone] HCN Clinical Concern/Question Social History Tobacco Use Types Packs/Day Years [...] place to sleep or slept in a care home (including now)? 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 * Telephone Encounter - Margarette Villalobos RN - 05/02/2024 3:08 PM EDT Called x2 and phone rings and then gets disconnected. Yes ok to remove cale if wound indicates healing. * Telephone Encounter - Tabatha Lipscomb - 05/02/2024 2:24 PM EDT Clinical Concern/Question Reason for Call: Nurse Fiona returning missed call Best contact number: Other: [phone] Optimal time of day to reach caller: ANYTIME Additional comments/information from caller: None Note: Please do not reply to this message. Follow-up communication and further actions as a result of this message need to be communicated with the patient directly, if the patient is not active onMyChart. If the patient is active on MyChart, they will receive notification of the communication/outcome via [employer]. * Telephone Encounter - Rima Ordaz RN - 05/02/2024 1:43 PM EDT Attempted to call facility at two nurses stations, no answer. * Telephone Encounter - Isidra Mock - 05/02/2024 11:49 AM EDT Patient Phone Message Reason for Call: [facility] called and wanted to discuss cale as they were not removed at FU. Please call Best contact number and optimal time of day to reach caller: [phone] Note: Please do not reply to this message. Follow-up communication and further actions as a result of this message need to be communicated with the patient directly, if the patient is not active onMyChart. If the patient is active on MyChart, they will receive notification of the communication/outcome via MyChart. documented in this encounter Plan of Treatment [...] documented as of this encounter Care Teams Corrugated Box Machine Operator Relationship Specialty Start Date End Date Pcp, [place] [address] PCP - General Family Medicine 03/23/24 documented as of this encounter
--- OUTSIDE RECORDS SUMMARY | 2024-09-30 12:51 | XMS_ITS | Encounter Summary ---
Author Organization Healthcare Address [address] [place] [address] Care Team Providers Care Auto Seat Cover Installer Name Role Phone Pcp, No Primary Care Provider Unavailabl e Encounter Details Date Type Department Care Team (Late st Contact Info) Description 03/30/2024 Orders Only External Location [address] [place] [address] Provider, External Social History Tobacco Use Types Packs/Day Years [...] place to sleep or slept in a correction (including now)? 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) to steady your nerves or to get [...] Procedure Name Priority Date/Time Associated Diagnosis Comments POC ULTRASOUND 03/30/2024 documented in this encounter Results * POC Imaging (03/30/2024) Anatomical Region Laterality Modality Pelvis Other 03/30/2024 us External Provider IMG POINT OF CARE ULTRASOUND F inal Result documented in this encounter Visit Diagnoses Not on filedocumented in this encounter Additional Health Concerns Infection Onset Date Last Indicated Resolved Time MRSA 03/28/2024 03/28/2024 Assessment Noted Time A Body Mass Index follow-up plan has been documented for the patient 04/12/2024 2:33 PM EDT documented as of this encounter Care Teams Auto Seat Cover Installer Relationship Specialty Start Date End Date Pcp, Mariela [address] [place] [address] PCP - General Family Medicine 03/23/24 documented as of this encounter
--- OUTSIDE RECORDS SUMMARY | 2024-09-30 12:51 | XMS_ITS | Encounter Summary ---
Author Organization Healthcare Address [address] [place] [address] Care Team Providers Care Sales Order Administrator Name Role Phone Pcp, No Primary Care Provider Unavailabl e Reason for Visit * Reason Comments Abscess * Auth/Cert (Routine) Specialty Diagnoses / Procedures Referred By Contac t Referred To Contact Diagnoses Rectal cancer (CMS/HCC) Dysuria, rectal mass Jeremy Cazares MD [address] [address] Phone: tel: fax: [facility] [address] [place] [address] Phone: tel: Referral ID Status Reason Start Date Expiration Date Visits Re quested Visits Authorized [id number] 1 1 Encounter Details Date Type Department Care Team (Late st Contact Info) Description 03/23/2024 4:04 AM EDT - 04/12/2024 5:40 PM EDT Hospital Encounter [facility] [address] [place] [address] Caron Gordon MD [address] [place] [address] Jeremy Cazares MD [address] [address] Rectal cancer (CMS/HCC) (Primary Dx) Discharge Disposition: Residential Facility Social History Tobacco Use Types Packs/Day Years [...] drink first t cristi in the morning ([employer]) to steady your nerves or to get rid of a hangover? 0 03/23/2024 CAGE Questionnaire Score 0 024 Utilities Answer Date Recorded In the past 12 months has th [employer], [employer], oil, or water Mailbox threatened to shut off services in your home? No 03/23/2024 Sex and Gender Information Value Date Recorded Sex Assigned at Male 03/23/2024 4:56 AM EDT Legal Sex Male 7:19 PM EDT Gender Identity Male 03/23/2024 4:56 AM EDT Sexual Orientation Not on file documented as of this encounter Last Filed Vital Signs Vital Sign Reading Time Taken Comments Blood Pressure 150/69 04/12/2024 11:35 AM EDT Pulse 64 04/12/2024 11:35 AM EDT Temperature 36.4 ??C (97.6 ??F) 04/12/2024 1 1:35 AM EDT Respiratory Rate 16 04/12/2024 11:3 5 AM EDT Oxygen Saturation 97% 04/12/2024 11: 35 AM EDT Inhaled Oxygen Concentration - - Weight 54 kg (119 lb 0.8 oz) 03/31/2024 6:20 PM EDT Value as of 03/23/2024 Height 160 cm (5' 3 ) 03/31/2024 6:20 PM EDT Body Mass Index 21.09 03/31/2024 6:20 PM EDT documented in this encounter Discharge Instructions * Discharge Instructions* Lalit Newton MD - 04/12/2024 2:26 PM EDT Images from the original note were not included. Department of Surgery Division of Colorectal Surgery Activity: Move around as you are able, do not lift over 5 lbs for 6 weeks after surgery Diet: You have an ostomy. See attached diet instructions for ostomies Be sure to stay hydrated and take in plenty of fluid. See attached diet instructions. Medications: Take tylenol 650mg every 6 hours for pain. Continue your home medications unless instructed otherwise at discharge. Wound care: It is okay to shower. Allow warm, soapy water to run over your incisions and pat dry with a clean towel. Do not submerge your incisions in a tub bath or body of water for two weeks after your operation. You have cale over your incision. These will be removed in clinic. Ostomy: Change your appliance twice weekly or when it is leaking. Change it as instructed by ostomyteaching nurses. Empty when it is 1/2 full. Keep track of the amount coming out until your follow up appointment. Follow up: You will follow up with Dr. Cazares in approximately 2 weeks. The clinic will call withan appointment time. Questions: Call the [facility] at [phone] during business hours on weekdays or call [facility]'s after hours at [phone] to speak with a resident software test automation engineer for Colorectal surgery after 5pm or on weekends if: - you have a fever > 101F - you are vomiting and cannot keep down liquids - your pain cannot be controlled with oral medications - if you start to have increased redness, drainage of pus, swelling, or increased pain around your incision - you have changes to the appearance of your ostomy or you are no longer having output from your ostomy documented in this encounter Medications at Time [...] mouth 1 (one) time each day. 02/02/2024 rivaroxaban (Xarelto) 10 MG tablet Take 1 tablet (10 mg) by mouth 1 (one) time each day with dinner for 14 days. 14 tablet 04/13/2024 simvastatin (Zocor) 40 MG tablet Take 1 tablet (40 mg) by mouth every night. 02/02/2024 tamsulosin (Flomax) 0.4 MG 24 hr capsule Take 2 capsules (0.8 mg) by mouth 1 (one) time each day. 02/08/2024 theophylline ER (Ananda-Dur) 300 MG 12 hr tablet Take 1 tablet (300 mg) by mouth 1 (one) time each day. 01/05/2024 documented as of this encounter Miscellaneous Notes * Sofya Ramos RN - 04/12/2024 2:34 PM EDT Images from the original note were not included. [id number] Discharge Instructions: Eating a Soft, Coke Diet You have been prescribed a soft, bland diet. This reduces the amount of work your digestive tract has to do. It also reduces the chance that your digestive tract will be irritated by the food you eat. A soft, bland diet is prescribed for people with digestive problems. This is different from a softdiet that is prescribed for people with issues chewing and swallowing. The diet you have been prescribed consists of foods that are tender, mildly seasoned, and easy to digest. While on this diet, don't eat fried or spicy foods, or raw fruits and vegetables. Also don't drink alcohol. General guidelines ?? Eat in a calm, relaxed atmosphere. How you eat may be as important as what you eat. Don?t carroll while eating. Chew your food slowly and thoroughly, and swallow slowly. ?? Eat small meals often throughout the day. But don?t eat 3 hours before lying down. ?? Think about raising the head of your bed 6 or 9 inches. Wedge pillows let you sleep on an incline and may be helpful. ?? Don't eat any foods that cause discomfort. ?? Don?t use NSAIDs (nonsteroidal anti-inflammatory drugs), such as aspirin and ibuprofen. Also don't take medicine that contain aspirin. NSAIDs can cause ulcers and delay or prevent ulcer healing. ?? Use antacids as needed. But keep in mind that magnesium-containing antacids may cause diarrhea. ?? Don't smoke. Foods to eat ?? Cream of wheat and cream of rice ?? Cooked white rice ?? Mashed potatoes and boiled potatoes without skin ?? Plain pasta and noodles ?? Plain white crackers (such as no-salt soda crackers) ?? White bread ?? Applesauce ?? Cooked fruits without skins or seeds ?? Mild juices, such as apple and grape ?? Bananas ?? Cooked or mashed vegetables without stems and seeds o Carrots o Summer squash (zucchini, yellow squash) o Winter squash (acorn, butternut, spaghetti squash) ?? Cottage cheese ?? Mild hard or soft cheeses ?? Custard ?? Yogurt without seeds or nuts ?? Milk (you may need lactose-free milk) ?? Ice cream without seeds, nuts, chocolate chips, or toppings ?? Smooth peanut butter ?? Eggs ?? Fish, turkey, chicken, or other lean meat that is not tough or stringy ?? Tofu Foods to stay away from ?? Nuts and seeds ?? Snack foods, such as the following: o Chocolate-containing snacks, candy, pastries, or cakes. o Potato chips (plain, barbecued, or other flavors) o Taco chips or nachos o Gordon chips o Popcorn, popcorn cakes, or rice cakes o Crackers with nuts, seeds, or spicy seasonings o Bengali fries ?? Fried or greasy foods ?? Whole-grain breads, rolls, and crackers ?? Breads and rolls with nuts, seeds, or bran ?? Bran and granola cereals ?? Berries with seeds, such as strawberries, raspberries, and blackberries ?? Acidic fruits, such as oranges, grapefruits, adali, limes, and pineapples ?? Raw vegetables ?? Mild or hot peppers ?? Sauerkraut and pickled vegetables ?? Tomatoes or tomato products, such as tomato paste, tomato sauce, and tomato juice ?? Barbecue sauce ?? Spicy or flavored cheeses, such as jalape??o and black pepper cheese ?? Crunchy peanut butter ?? Dried cooked beans, such as guerrero, kidney, or navy beans ?? The following meats: o Fried or greasy meats o Processed, spicy meats, such as sausage, goodman, ham, and lunch meats o Ribs and other meats with barbecue sauce o Tough or stringy meats, such as corned beef or beef jerky Drinks to stay away from ?? Alcohol ?? Coffee and regular teas ?? Kathleen and other drinks with caffeine ?? Cranberry, orange, pineapple, and grapefruit juice ?? Lemonade ?? Vegetable juice ?? Whole milk, if you are lactose intolerant ?? Peppermint Follow-up Follow up with your healthcare provider, or as advised. Last Reviewed Date: 2022 ?? 8763-8562 [employer]. All rights reserved. This information is not intended as a substitute for professional medical care. Always follow your healthcare professional's instructions. * Adebayo GermanSLY - Sofya Blount RN - 04/12/2024 2:33 PM EDT Images from the original note were not included. [id number] Fall Prevention Falls often take place due to slipping, tripping, or losing your balance. Millions of people fall every year and injure themselves. Among older adults in the [place] falls are the most common cause of traumatic brain injuries. Every 20 minutes, an older adult dies from a fall. Here are ways to reduceyour risk of falling again: ?? Think about your fall. Was there anything that caused your fall that can be fixed, removed, or replaced? ?? Make your home safe by keeping walkways clear of objects you may trip over, such as electrical cords. ?? Use nonslip pads under rugs. Don't use area rugs or small throw rugs. ?? Use nonslip mats in bathtubs and showers. ?? Hang grab rails by the toilet and inside and outside the shower. ?? Install handrails and lights on staircases. The handrails should be on both sides of the stairs. ?? Use night lights. ?? Don't walk in poorly lit areas. ?? Don't stand on chairs or wobbly ladders. ?? Use care when reaching overhead or looking up. This position can cause a loss of balance. ?? Be sure your shoes fit well, are in good condition, and have nonslip bottoms. ?? Wear shoes both inside and outside of your home. Don't go barefoot or wear slippers. ?? Be cautious when going up and down stairs, curbs, and when walking on uneven sidewalks. ?? If your balance is poor, consider using a cane or walker. Talk with your healthcare provider about having a balance assessment. ?? If your fall was related to alcohol use, stop or limit alcohol intake. Ask your provider for help if you think you may overuse alcohol and can't stop. ?? If your fall was related to use of sleeping medicines, talk with your provider about this. You may need to reduce your dosage at bedtime if you wake up during the night to go to the bathroom. ?? To reduce the need for nighttime bathroom trips: o Don't drink fluids for several hours before going to bed o Empty your bladder before going to bed o Men can keep a urinal at the bedside ?? Stay as active as you can. Balance, flexibility, strength, and endurance all come from exercise.They all play a role in preventing falls. Ask your provider which types of activity are right for you. Try to do some type of exercise every day. ?? Get your eyes checked once a year or more often if your vision changes ?? If you have pets, know where they are before you stand up or walk so you don't trip over them. ?? Go over all your medicines with a pharmacist or other provider. This is to see if any of them could make you more likely to fall. Have this type of medicine review at least once every year. ?? If your provider advises a new medicine, ask if the side effects will affect your balance. ?? Don't move quickly from one position to another. For instance, don't stand up fast from sitting.This can cause dizziness and may lead to a fall. ?? Sit down when putting on pants, socks, and shoes. This will make you less likely to lose your balance and fall. ?? Always let your provider know if you have fallen since your last visit. ?? Contact your provider right away if you're having balance problems or falling more often. Last Reviewed Date: 2021 ?? [id number] [employer]. All rights reserved. This information is not intended as a substitute for professional medical care. Always follow your healthcare professional's instructions. * Adebayo Kinney - Sofya Blount RN - 04/12/2024 2:33 PM EDT Images from the original note were not included. 528 Moving After Your Injury or Illness Health problems can make it harder for you to turn in bed, get up and down, sit, stand, or walk. But moving less can cause your illness to get worse. It can cause you to get health problems you did not have before or cause you to stay in the hospital for a longer period of time. These problems can affect your body and your life. You need to move while you are in the hospital. You need to move as much as you can, even when you are sick or hurt. Your nurse or doctor will talkto you about safe ways you can keep moving during your hospital stay. Moving has many benefits. ?? It will help you heal. ?? It will protect you from getting other health problems. ?? You will spend less time in the hospital. ?? You will spend less money on healthcare. Not moving can cause many kinds of problems. Not moving can cause health problems that can make you sicker or even cause . Some of these problems are: Bed sores: A bed sore is also called a pressure injury. It is an injury to the skin or tissue. Not moving or staying in one position too long are common causes of bed sores. Heart problems: Moving less can weaken your heart muscles. When the muscles are weak, your heart cannot pump blood well. This means less blood and oxygen travels through your body. When blood flow slows down, it can cause clots. Blood clots: When you move less, you can get a blood clot. They often form in the leg veins. You are more likely to get a clot if you: ?? are in bed for a long time ?? smoke ?? have had a certain type of surgery Pulmonary embolism: A pulmonary embolism is serious problem that can cause . It means a blood clot in a vein breaks off and blocks an artery in the lung. Stroke: A stroke is when blood flow to the brain stops. A blood clot in the brain can cause a stroke. Heart attack: A blood clot traveling to your heart can cause a heart attack. This blocks the flow of blood and oxygen. Lung problems: Your lungs do not expand as much when you sit or lay down. If your lung muscles do not stretch, they become stiff and your breathing muscles have to work harder to help you breathe.. This can lead to pneumonia or even organ damage. Muscle and bone problems: If you do not move, your muscles can get weak or shrink. When muscles do not stretch, you feel stiff and achy. Your bones may become weak or brittle. This makes it easier for your bones to break. Stomach problems: Lying in bed can cause the muscles in your bowels to slow down. This can lead to: ?? loss of appetite ?? getting less nutrition from what you eat ?? fewer bowel movements and constipation Mood and behavior changes: Not moving can have bad effects on your brain. Some common signs of thisare: ?? mood changes ?? confusion ?? less mental alertness ?? anxiety or stress ?? depression ?? sleep problems * [facility] - Sofya Blount RN - 04/12/2024 2:33 PM EDT Images from the original note were not included. [id number] Preventing a Surgical Site Infection A risk of any surgery is an infection at the surgical site. The surgical site is a cut the surgeon makes in the skin to do the surgery. Surgical site infections can range in type. It may be a minor skin infection. Or it may be severe and include tissue under the skin or other organs. In some cases,a severe infection can cause . This sheet tells you: ?? About surgical site infections ?? What hospitals do to prevent them ?? How they?re treated if they do occur ?? What you can do to prevent an infection Hand washing reduces the risk of infection. What causes a surgical site infection? Germs are everywhere. They?re on your skin, in the air, and on things you touch. Many germs are good. Some are harmful. Surgical site infections occur when harmful germs enter your body through the incision in your skin. Some infections are caused by germs that are in the air or on objects. But most are caused by germs found on and in your own body. Who is at risk for a surgical site infection? Anyone can have a surgical site infection. Your risk is higher if you: ?? Are an older adult ?? Have a weak immune system ?? Have other health conditions such as diabetes ?? Take certain medicines, such as steroids ?? Are a smoker ?? Have certain types of surgery, such as abdominal surgery ?? Have poor nutrition ?? Are very overweight ?? Have a surgery that lasts longer than 2 hours What are the symptoms of a surgical site infection? An infection often shows up as skin redness, pain, and swelling around the incision that gets worse. Later a cloudy or greenish-yellow fluid may come from the incision. The fluid may smell bad. The incision may pull apart or open up. You are likely to have a fever and may feel very ill. Symptoms can appear any time. They may happen from hours to weeks after surgery. Implants such as an artificial knee or hip can become infected at any time after the surgery. How is a surgical site infection treated? ?? A surgical site infection is treated with antibiotics. The type of medicine you get will depend on what may be causing the infection. Most serious wound infections need wound care. In some cases, surgery may be needed on the infected wound. ?? An infected skin wound may be reopened and cleaned. A deep wound may need to be packed with gauze. The gauze is changed often until the wound starts to heal from the inside out. Your healthcare provider will decide the best way to treat your infection. ?? If an infection occurs where an implant is placed, the implant may be removed. ?? If you have an infection deeper in your body, you may need surgery to treat it. What hospitals do to prevent surgical site infections Many hospitals take these steps to help prevent surgical site infections: ?? Handwashing. Before the surgery, your surgeon and all surgery staff scrub their hands and arms with an antiseptic soap. ?? Clean skin. The site where your incision is made is carefully cleaned with an antiseptic solution. ?? Sterile clothing and drapes. The surgical team wears medical uniforms. These are known as scrub suits. They wear long-sleeved surgical gowns, masks, caps, shoe covers, and sterile gloves. Your body is fully covered with a large sterile sheet (sterile drape). There is an opening in the sheet where the incision is made. ?? Clean air. Operating rooms have special air filters. They use positive pressure airflow to prevent unfiltered air from entering the room. ?? Careful use of antibiotics. Antibiotics are given no more than 60 minutes before the incision ismade. They are generally stopped within 24 hours after surgery. This depends on the type of surgery. This helps kill germs but prevents problems that can occur when antibiotics are taken longer. ?? Controlled blood sugar levels. Your blood sugar level may rise. This can be because of the stress of the surgery. Your blood sugar level is watched closely to make sure it stays within a normal range. High blood sugar delays wound healing. This increases the risk of infection. ?? Controlled body temperature. A afniu-omfh-nnxkuu temperature during or after surgery prevents oxygen from reaching the wound. This makes it harder for your body to fight infection. Hospitals may warm IV fluids, increase the temperature in the operating room, and provide warm-air blankets. ?? Safe hair removal. Any hair that must be removed is clipped right before the incision, not shaved with a razor. This prevents tiny nicks and cuts where germs can enter. ?? Wound care. After surgery, a closed wound is covered with a sterile dressing for 1 to 2 days. Open wounds are packed with sterile gauze and covered with a sterile dressing. What you can do to prevent a surgical site infection ?? Ask questions. Learn what your hospital is doing to prevent infection. ?? If instructed, shower or bathe with plain soap the night before and the day of your surgery. Follow all instructions you're given. You may be asked to use a special cleanser that you don?t rinse off. ?? If you smoke, stop as long as possible before and after the surgery. Ask your healthcare provider about ways to quit. ?? Take antibiotics only when your healthcare provider tells you to. Using antibiotics when they?renot needed can create germs that are harder to kill. Finish the entire prescription of your antibiotics. Take them even if you feel better. ?? Ask healthcare workers to clean their hands with plain soap and water or with an alcohol-based hand cougar hunter before and after caring for you. Don?t be afraid to remind them. ?? After surgery, eat healthy foods. Care for your incision as directed by your healthcare team. When to call your healthcare provider Call your healthcare provider if you have any of these: ?? Pain at the surgical site that gets worse ?? A red streak, worse redness, or puffiness near the incision ?? Yellowish, cloudy, or bad-smelling fluid from the incision ?? Stitches that dissolve before the wound heals ?? Fever of 100.4?? F ( 38??C ) or higher, or as advised by your healthcare provider ?? A tired feeling that doesn?t go away Last Reviewed Date: 2021 ?? [id number] [employer]. All rights reserved. This information is not intended as a substitute for professional medical care. Always follow your healthcare professional's instructions. * Adebayo GermanSLY - Sofya Blount RN - 04/12/2024 2:32 PM EDT Images from the original note were not included. [id number] Wound Care Taking good care of your wound will help it heal. Your healthcare provider may show you how to clean and dress the wound. They will also explain how to tell if the wound is healing normally. If you are unsure of how to take care of the wound, ask what dressing to use and how often you should changethe bandages. Below are the basic steps. Wash your hands Tips for washing your hands: ?? Use liquid soap and lather. Scrub for 20 seconds between your fingers and under your nails. ?? Rinse with clean, running water, keeping your fingers pointed down. ?? Use a paper towel to dry your hands and to turn off the faucet. Remove the used dressing Here are suggestions for removing the dressing: ?? If dressing changes cause you pain, take your pain medicine as prescribed by your healthcare provider 30 minutes before dressing changes. ?? Set up your supplies. ?? Put on disposable gloves if you?re dressing a wound for someone else or your wound is infected. ?? Loosen the tape by pulling gently toward the wound. ?? Gently take off the old dressing. If the dressing is stuck to the wound, moisten it with saline (if available) or clean water. ?? If you have a drain or tube in the wound, be careful not to pull on it. ?? Remove the dressing 1 layer at a time and put it in a plastic bag. Seal the bag and put it in the trash. ?? Remove your gloves. Inspect and dress the wound Check the wound carefully: ?? Each time you change the dressing, check the wound carefully to be sure it?s healing normally. Check that your wound appears to be pink and moist and that it's free of infection. ?? Wash your hands again. Put on a new pair of gloves. ?? Clean and dress the wound as directed by your healthcare provider or nurse. Don't put anything in the wound that is not prescribed or directed by your healthcare provider. If you have a drain or tube, be careful not to pull on it. Secure the drain or tube as well. ?? Put all unused supplies in a clean plastic bag. Seal the bag and store it in a clean, dry area between dressing changes. ?? Wash your hands again. Call your healthcare provider Call your healthcare provider if you see any of the following signs of a problem: ?? Bleeding that soaks the dressing ?? Papillion fluid weeping from the wound ?? Increased drainage or drainage that is white, yellow, yellow-green, or foul-smelling ?? Increased swelling or pain, or redness or swelling in the skin around the wound ?? A change in the color of the wound, or if streaks develop in a direction away from the wound ?? The area between any stitches opens up ?? An increase in the size of the wound ?? A fever of 100.4??F (38??C) or higher, or as directed by your healthcare provider ?? Chills, increased fatigue, or a loss of appetite Last Reviewed Date: 2022 ?? [id number] [employer]. All rights reserved. This information is not intended as a substitute for professional medical care. Always follow your healthcare professional's instructions. * Adebayo Kinney - Sofya Blount RN - 04/12/2024 2:32 PM EDT Images from the original note were not included. [id number] Rodriguez Catheter Care A Rodriguez catheter is a rubber tube that is placed through the urethra and into the bladder. The urethra is the opening where urine comes out. The catheter helps drain urine from the bladder. There is a small balloon on the end of the tube that is inflated after the catheter is put in place. This keeps the catheter from sliding out of the bladder. A Rodriguez catheter is used when you are unable to pass urine (urinary retention). It's also used whenthere is loss of bladder control (incontinence). It's also used after bladder or prostate surgery. Home care ?? Finish taking any prescribed antibiotic medicine even if you are feeling better before then. ?? It's important to keep bacteria from getting into the collection bag. Don't disconnect the catheter from the collection bag. ?? Use a leg band to secure the drainage tube, so it doesn't pull on the catheter. ?? Don't try to pull or remove your catheter. This will injure your urethra. It must be removed by your healthcare provider or nurse. ?? Drain the collection bag when it becomes full using the drain spout at the bottom of the bag. Follow-up care Follow up with your healthcare provider, or as advised. This is for repeat urine testing and for catheter removal or replacement. When to seek medical advice Call your healthcare provider right away if any of these occur: ?? Fever of 100.4??F (38??C) or higher, or as directed by your healthcare provider ?? Bladder pain or fullness ?? Abdominal swelling, nausea or vomiting, or back pain ?? Blood or urine leakage around the catheter ?? Bloody urine coming from the catheter (if a new symptom) ?? Catheter falls out ?? Catheter stops draining for 6 hours ?? Weakness, dizziness, or fainting Last Reviewed Date: 2021 ?? [id number] [employer]. All rights reserved. This information is not intended as a substitute for professional medical care. Always follow your healthcare professional's instructions. * Discharge Summary - Lalit Newton MD - 04/12/2024 2:27 PM EDT Hospitalization Admit Date/Time: 03/23/2024 4:04 AM Admitting Attending: Jeremy Cazares Discharge Date: 04/12/24 Discharge Attending Physician: Jeremy Cazares MD PCP name and Address: Pcp, Mariela [address] [place] [address] Referring provider name and address: Jorge Alberto Resendiz MD [address] [place] [address] Chief Concern, Brief History of Present Illness, and Hospital Course Sae Alexander is a 73 y.o. 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 He was found to have candidemia on admission and was treated appropriately. On 03/30/2024, the patient underwent a flexible sigmoidoscopy with biopsy and colostomy creation. The patient tolerated the procedure well and there were no complications. 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 His postoperative course was uncomplicated and after being evaluatedby PT/OT, he was referred to acute rehab. Urology was consulted and recommended continuing rodriguez and following up as an outpatient to discuss suprapubic catheter. On 04/12/24 , patient has been hemodynamically stable and deemed medically appropriate for discharge. Currently, the patient's pain is well controlled on an oral regimen. They have return of bowel function and are tolerating a regular diet with no nausea/vomiting. He will be discharged with a urinary catheter in place. The patient will be discharged to acute rehab and will followup with Jeremy Jonas MD in clinic in about 2 weeks. Surgeries and Procedures Procedures performed in this encounter Procedures Case Request Operating Room: CREATION, COLOSTOMY, LAPAROSCOPIC, FLEXIBLE SIGMOIDOSCOPY CREATION, COLOSTOMY, OPEN, FLEXIBLE SIGMOIDOSCOPY (N/A) Medication List .. acetaminophen 500 MG tablet Commonly known as: Tylenol Take 2 tablets (1,000 mg) by mouth 2 (two) times a day if needed. allopurinol 300 MG tablet Commonly known as: Zyloprim Take 1 tablet (300 mg) by mouth 1 (one) time each day. carvedilol 25 MG tablet Commonly known as: Coreg Take 1 tablet (25 mg) by mouth 2 (two) times a day. lisinopril 40 MG tablet Take 1 tablet (40 mg) by mouth 1 (one) time each day. Start taking on: April 13, [address] capsule Commonly known as: PriLOSEC Take 1 capsule (20 mg) by mouth 1 (one) time each day. rivaroxaban 10 MG tablet Commonly known as: Xarelto Take 1 tablet (10 mg) by mouth 1 (one) time each day with dinner for 14 days. Start taking on: April 13, 2024 simvastatin 40 MG tablet Commonly known as: Zocor Take 1 tablet (40 mg) by mouth every night. tamsulosin 0.4 MG 24 hr capsule Commonly known as: Flomax Take 2 capsules (0.8 mg) by mouth 1 (one) time each day. theophylline ER 300 MG 12 hr tablet Commonly known as: Ananda-Dur Take 1 tablet (300 mg) by mouth 1 (one) time each day. Where to Get Your Medications These medications were sent to [place], [place] - [address] [address] [address] [address], [facility] [id number] carvedilol 25 MG tablet lisinopril 40 MG tablet rivaroxaban 10 MG tablet Discharge Diagnosis Medical Problems Active and Resolved Hospital Problems Hospital * (Principal) Rectal cancer (CMS/HCC) Colostomy in place (CMS/HCC) Colovesical fistula Post Discharge Instructions See AVS Outpatient Follow-Up No future appointments. Test Results Pending At Discharge Pertinent Physical Exam At Time of Discharge Physical Exam Vitals reviewed. Constitutional: Appearance: He is normal weight. HENT: Head: Normocephalic and atraumatic. Eyes: General: No scleral icterus. Extraocular Movements: Extraocular movements intact. Cardiovascular: Rate and Rhythm: Normal rate. Pulmonary: Effort: Pulmonary effort is normal. No respiratory distress. Abdominal: General: Abdomen is flat. There is no distension. Comments: Ostomy is well perfused and there is stool and gas in bag. Genitourinary: Comments: Rodriguez with CYU Skin: General: Skin is warm and dry. Coloration: Skin is not jaundiced. Neurological: General: No focal deficit present. Mental Status: He is alert. Psychiatric: Mood and Affect: Mood normal. Behavior: Behavior normal. Discharge Disposition/Condition Disposition: Rehab facility (specify) Condition: Stable (s/sx potential problems absent or manageable) I spent >30 minutes of patient care and instruction time in preparation for this discharge. Cosigned by Jeremy Cazares MD at 04/12/2024 2:34 PM EDT Associated attestation - Jeremy Cazares MD - 04/12/2024 2:34 PM EDT I saw and evaluated the patient with the resident/fellow. I discussed the case with the resident/fellow and agree with the findings and plan as documented. * Adebayo Kinney - Lalit Newton MD - 04/12/2024 2:27 PM EDT Images from the original note were not included. [id number] Colostomy: Managing Your Nutrition You don?t have to eat a special diet just because you?ve had a colostomy. Most foods, chewed well and eaten slowly, won?t give you problems?unless they did before. But you may need to be more aware of foods that cause gas or odor and foods that make your stool too runny or too hard. Choosing foods Learning which foods cause gas or odor, or make your stool runny or hard, takes a little time. You may want to add foods back to your diet one at a time: ?? Eat only small amounts at first to see how your body reacts. ?? If a food causes a problem, wait and try it again in a few weeks. Once your system adjusts to having a stoma, you may find the food doesn?t give you trouble anymore. Causes of gas and odor Some gas is normal, but constant gas is not. Neither is constant odor from stool. What causes gas or odor can differ from person to person. Gas is often caused by swallowing air. To prevent this, eatslowly. Chew each bite well. Sip fluids, and don?t use a straw. Some foods tend to cause excess gas or odor. If gas or odor is a problem, you may want to eat less of certain foods. Foods that can cause gas include: ?? Beer ?? Broccoli ?? Greene sprouts ?? Cabbage ?? Cauliflower ?? Gordon ?? Cucumbers ?? Dried beans ?? Milk ?? Mushrooms ?? Nuts ?? Onions ?? Peas ?? Sodas ?? Spicy foods Foods that can cause odor include: ?? Asparagus ?? Broccoli ?? Greene sprouts ?? Cabbage ?? Cheese ?? Eggs ?? Fish ?? Garlic ?? Horseradish ?? Spices such as coriander, cumin, dill, and fennel Causes of diarrhea Stool that?s more runny than normal (diarrhea) can be a sign of an illness, such as the flu. Some foods and medicines can also cause runny stool: ?? If your stool is more runny than normal, drink plenty of fluids. This helps replace lost fluids and prevent dehydration. ?? Stay away from foods that can make the stool loose, such as raw fruits and vegetables, garlic, onions, alcohol, spicy foods, and foods that are high in fat or sugar. ?? Check with your healthcare provider before you take any medicines for diarrhea. ?? Don't irrigate while you have diarrhea. Preventing constipation Your stool can sometimes be too hard (constipation). Hard stool is often caused by not eating enough fiber or not drinking enough fluids. Stress and some medicines can also cause hard stool: ?? If your stool is hard, eat more high-fiber foods, such as fruits, vegetables, and whole-grain breads and cereals. ?? Drink at least 8 to 12 cups (2 to 3 quarts) of water or juice each day. Fluids can be hot or cold. ?? Check with your healthcare provider before using laxatives or stool softeners. When to call your healthcare provider Call your healthcare provider if you have any of the following: ?? You have bloating, cramping, nausea, pain, or vomiting. ?? You have a change in your normal bowel habits, such as little or no stool. ?? Your stool is loose or more runny than normal for more than 5 to 6 hours. ?? Your stool is black or bloody. ?? The stoma changes size. Last Reviewed Date: 2021 ?? [id number] [employer]. All rights reserved. This information is not intended as a substitute for professional medical care. Always follow your healthcare professional's instructions. * Adebayo GermanSLY - Lalit Newton MD - 04/12/2024 2:27 PM EDT Images from the original note were not included. 1359 What Is a Colostomy? During a colostomy, part of the colon (large intestine) is removed or disconnected. If the large intestine was diseased, it may be removed. If it was injured, it may be disconnected for a short time while it heals, then reconnected after a certain period of time. During a colostomy, the colon is bro ught through the abdominal wall. This makes an opening, called a stoma, for stool and mucus to passout of the body. You will have special appliances to cover the stoma to collect the stool and to eliminate odor. Types of colostomies The type of colostomy you have depends on what part of the colon is removed or disconnected. The most common types of colostomies are: Sigmoid colostomy Here is what to expect with a sigmoid colostomy: ?? The last section of the colon is removed or disconnected. The rectum and anus may be removed, orthey may be disconnected and left in the body. ?? The stoma is usually on the lower left side of the belly. ?? Stool is most often firm. Descending colostomy Here is what to expect with a descending colostomy: ?? The sigmoid colon and part of the descending colon are removed or disconnected. The rectum and anus may be removed or just disconnected. ?? The stoma is usually on the left side of the belly. ?? Stool may be almost firm. Transverse colostomy Here is what to expect with a transverse colostomy: ?? All of the sigmoid and descending colon and part of the transverse colon are removed or disconnected. The rectum and anus may be removed or just disconnected. ?? The stoma can be in the middle or on the right or left side of the upper belly. ?? Stool varies from paste-like to almost liquid. Types of stomas The stoma is created by bringing the colon through the abdominal wall and turning it back on itself, like a cuff. The stoma is pink and moist, like the inside of the mouth. It shrinks to its final size 6 or 8 weeks after surgery. The kind of stoma you have depends on your surgery. The most common types are: An end stoma. This is, most often done for a permanent colostomy. Stool and mucus pass from the same opening. If the anus is not removed, mucus passes from it as well, like you might see in the stoolof a normal bowel movement. A loop stoma . This is most often done for a temporary colostomy. Stool passes from one side of thestoma. Mucus passes from the other. The anus is most often not removed, so mucus passes from it, too. Two stomas. This may be done for a temporary or permanent colostomy. Stool passes from one stoma. Mucus passes from the other. If the anus is not removed, mucus passes from it as well. Colostomy: Caring for Your Stoma You need to take care of your stoma and the skin around it (peristomal skin). That means keeping the stoma and the skin clean. It also means protecting the skin from moisture and contact with stool. This helps prevent skin problems and odor. Check the stoma Check the stoma and the skin around it each time you change your pouch. client project coordinator front of a mirror,or use a hand mirror so that you can see all the way around the stoma. It should look shiny, moist,and dark pink or red. The skin around it should be smooth, with no red or broken spots. Clean around the stoma Clean around the stoma with warm water and a soft washcloth each time you change the pouch. Water does not harm the stoma. You can even take a bath or shower without your pouch if you choose: ?? There are no nerves in the stoma, so there is no feeling. Be sure to clean and dry the stoma gently. You could injure the stoma without knowing it. ?? The stoma may bleed a little when you clean it. That?s because there are tiny blood vessels in the tissue. Applying an extra skin barrier, such as a wipe, helps protect the skin if stool leaks around the pouch. Wipe it in a moapa around the stoma. Then let it dry for 1 minute before putting on a new pouch. Protect the skin around the stoma For the pouch to stick well, the skin around the stoma needs to be dry and smooth. If the skin is moist or uneven, the pouch is more likely to leak. A leaky pouch will irritate the skin. It can also cause odor: ?? To help keep the skin healthy, pat it dry after you wash it. ?? If you like, apply an extra skin barrier, such as a wipe, before you put on a new pouch. This helps protect the skin if stool leaks around the pouch. Common causes of skin problems Common causes include the following: ?? A leaking pouch can make the skin red and weepy. Use a measuring guide to check that the openingon the pouch is the correct size. ?? Hair under the pouch can make the skin inflamed. To avoid this, shave off any hair around the stoma with an electric razor. Always shave away from the stoma. ?? Allergies to skin barriers can make the skin itch, burn, or sting. You may need to try a new skin barrier or change to a new kind of pouch. ?? Yeast infections can make the skin red and itchy. Sweat under the pouch makes these infections more likely. A pouch cover can help keep the skin dry. Call your Wound Ostomy Continence nurse or other healthcare provider Contact your healthcare provider if you have any of the following: ?? The skin around the stoma is red, weepy, bleeding, or broken. ?? The skin around the stoma itches, cook, stings, or has white spots. ?? The stoma swells, changes color, or bleeds without stopping. ?? The stoma becomes even with or sinks below the skin, or it sticks up more than normal. ?? The stoma separates from the skin. Colostomy: Selecting Your Pouch After a colostomy, stool is most often collected in a pouch that attaches to your body around the stoma. An adhesive skin barrier holds the pouch in place and keeps stool from leaking onto the skin. Most pouches are made of lightweight, odor-proof plastic. They lie flat against the body so they don?t show or make noise. Types of pouches There are many styles of pouches. Your healthcare provider or ostomy nurse will help you select theone that?s best for you. The skin barrier has to fit around the stoma without touching it. And it must stick well so there is no leaking or odor from the pouch. Two-piece drainable ?? The skin barrier and the pouch are separate pieces. The skin barrier is applied to the skin. Thepouch snaps onto a flange on the skin barrier. ?? The bottom of the pouch has a tail with an opening. The tail is folded over and held closed withVelcro closures or a clamp. ?? To empty the pouch, you open the Velcro closures or remove the clamp. One-piece drainable ?? The skin barrier and the pouch come as one piece. The skin barrier holds the pouch onto the skin. ?? The bottom of the pouch has a tail with an opening. The tail is folded over and held closed withVelcro closures or a clamp. ?? To empty the pouch, you remove the Velcro closures or the clamp. One-piece closed-end ?? The skin barrier and the pouch come as one piece. The skin barrier holds the pouch onto the skin. ?? The bottom of the pouch is sealed, so it cannot be opened and emptied. ?? You remove the pouch and dispose of it when it is about one-third full. Use a guide to measure the stoma. Sizing the stoma opening For the pouch to fit around the stoma, the skin barrier must have an opening. Some skin barriers have precut openings, and some you size and cut yourself. To find the correct size opening for your stoma, use a measuring guide. Most pouches come with a guide in the box. Your healthcare provider may also give you one: ?? Find the smallest hole on the guide that fits around the stoma without touching it. There shouldbe about one-eighth inch between the stoma and the hole on the guide. ?? To cut the opening yourself, center the guide hole on the back of the skin barrier. Trace the pattern. Then cut the opening using curved scissors. ?? For precut openings, order pouches with the size opening that matches the size of the hole on the guide. Pouch accessories You can buy other stoma care products through special catalogs, at medical supply stores, and at some drugstores: ?? Powders and skin prep wipes add an extra layer of skin barrier. This helps protect the skin if stool leaks. ?? Adhesive paste and skin barrier rings fill in uneven places in the skin around the stoma. This helps the pouch stick better. ?? Convex skin barriers help make a better seal when the skin around the stoma is uneven or the stoma is level with or sinks below the skin. Some convex barriers come with a pouch attached. Others are inserts that can be added to any pouch. ?? Pouch filters and deodorants help prevent odor. ?? Ostomy belts help keep the pouch in place. ?? Self-adhesive plastic caps can be used instead of a pouch if you irrigate or have regular bowel movements Ostomy Care: Emptying Your Pouch You need to empty a drainable pouch when it gets to be about one-third full. This keeps the pouch from bulging under your clothes. It also helps prevent leaking and odor. To empty your pouch, follow the steps below in order. Empty the pouch Steps to emptying the pouch are as follows: ?? Sit on or next to the toilet. Or ludlow machine operator front of the toilet. Put a layer of toilet paper in the toilet bowl to keep stool from splashing. ?? Pull your clothes away from the pouch. ?? Hold the bottom of the pouch up. Open the Velcro closures. ?? Slowly unroll the tail, or spout, over the toilet. ?? Bend over the toilet to help prevent splashing ?? Slide your fingers down the pouch to push out all the stool. Clean the pouch Steps to cleaning the pouch: ?? Wipe the inside and outside of the tail with toilet paper. This helps prevent any odor. ?? Check both sides of the pouch for tears or holes. If you find any, put on a new pouch. Close the pouch ?? Properly fasten the Velcro closures to close the pouch. ?? Wash your hands with clean, warm or cold water for at least 20 seconds when you are done. (Hum Happy Birthday twice if you need a timer.) Or use a hand cougar hunter that is 60% alcohol. Releasing gas Gas can collect in the pouch even if there is no stool. Never puncture the pouch to release gas. Ifyou do, you?ll break the odor-proof seal. Stool can also leak if the pouch is punctured. To releasegas, follow these steps: ?? Hold the tail of the pouch up slightly and open the Velcro closures. ?? Hold the top of the pouch with one hand. ?? With the other hand, push the gas out by sliding your thumb and index finger from the top to thebottom of the pouch. ?? Secure the Velcro closures. ?? Wash your hands when you are done. Note: These instructions are for a one piece pouch. For a two piece pouch, gently separate the top part of the pouch from the wafer. Then push the gas out the top. You may be able to get a pouch witha gas filter. Colostomy: Changing Your Pouch Stool starts to pass from the stoma soon after surgery. That means you?ll need to learn how to change your pouch before you go home. You usually need to change your drainable pouch every 5 to 7 days,but you will empty your pouch more often. To change your pouch, follow the steps below. Start by gathering what you?ll need: ?? Plastic bags ?? Soft washcloth ?? Toilet paper ?? New pouch ?? Extra skin protection ?? Scissors (if needed) ?? Clean towel 1. Steps to remove the used pouch ?? If you use a drainable pouch, empty it first. ?? Start at the upper edge of the skin barrier. Carefully push the skin away from the skin barrier with one hand. Slowly peel back the skin barrier with the other hand. ?? Peel all the way around the skin barrier until the pouch comes off. ?? Seal the pouch in a plastic bag. Then put it in a second plastic bag. Throw it away in a trash bin. 2. Steps to clean around the stoma ?? Wipe any stool off the skin around the stoma with toilet paper. ?? Clean the skin with warm water and a soft washcloth. Wash right up to the edge of the stoma. Patthe skin dry with a clean towel. ?? If needed, put on extra skin protection, such as skin prep or a barrier ring 3. Steps to put on the new pouch ?? If you don?t use a pouch with a precut skin barrier, size and cut the opening (no more than one-eighth inch bigger than the stoma) and peel the backing off the skin barrier. Carefully place it over the stoma. ?? If you use a 2-piece pouch, snap the pouch onto the barrier. Start at the bottom and work your fingers around the flange. ?? Press the barrier against your skin with your fingertips. Lay the palm of your hand over the barrier and hold it in place for several minutes This molds the barrier to your skin. ?? If you use a drainable pouch, close the tail. ?? Wash your hands for at least 20 seconds when you are done. (Hum Happy Birthday twice if you needa timer.) Colostomy: Managing Your Nutrition You don?t have to eat a special diet just because you?ve had a colostomy. Most foods, chewed well and eaten slowly, won?t give you problems?unless they did before. But you may need to be more aware of foods that cause gas or odor and foods that make your stool too runny or too hard. Choosing foods Learning which foods cause gas or odor, or make your stool runny or hard, takes a little time. You may want to add foods back to your diet one at a time: ?? Eat only small amounts at first to see how your body reacts. ?? If a food causes a problem, wait and try it again in a few weeks. Once your system adjusts to having a stoma, you may find the food doesn?t give you trouble anymore. Causes of gas and odor Some gas is normal, but constant gas is not. Neither is constant odor from stool. What causes gas or odor can differ from person to person. Gas is often caused by swallowing air. To prevent this, eatslowly. Chew each bite well. Sip fluids, and don?t use a straw. Some foods tend to cause excess gas or odor. If gas or odor is a problem, you may want to eat less of certain foods. Foods that can cause gas include: ?? Beer ?? Broccoli ?? Greene sprouts ?? Cabbage ?? Cauliflower ?? Gordon ?? Cucumbers ?? Dried beans ?? Milk ?? Mushrooms ?? Nuts ?? Onions ?? Peas ?? Sodas ?? Spicy foods Foods that can cause odor include: ?? Asparagus ?? Broccoli ?? Greene sprouts ?? Cabbage ?? Cheese ?? Eggs ?? Fish ?? Garlic ?? Horseradish ?? Spices such as coriander, cumin, dill, and fennel Causes of diarrhea Stool that?s more runny than normal (diarrhea) can be a sign of an illness, such as the flu. Some foods and medicines can also cause runny stool: ?? If your stool is more runny than normal, drink plenty of fluids. This helps replace lost fluids and prevent dehydration. ?? Stay away from foods that can make the stool loose, such as raw fruits and vegetables, garlic, onions, alcohol, spicy foods, and foods that are high in fat or sugar. ?? Check with your healthcare provider before you take any medicines for diarrhea. ?? Do not irrigate while you have diarrhea. Preventing constipation Your stool can sometimes be too hard (constipation). Hard stool is often caused by not eating enough fiber or not drinking enough fluids. Stress and some medicines can also cause hard stool: ?? If your stool is hard, eat more high-fiber foods, such as fruits, vegetables, and whole-grain breads and cereals. ?? Drink at least 8 to 12 cups (2 to 3 quarts) of water or juice each day. Fluids can be hot or cold. ?? Check with your healthcare provider before using laxatives or stool softeners. When to call your health care provider Call your health care provider if you have any of the following: ?? You have bloating, cramping, nausea, pain, or vomiting. ?? You have a change in your normal bowel habits, such as little or no stool. ?? Your stool is loose or more runny than normal for more than 5 to 6 hours. ?? Your stool is black or bloody. ?? The stoma changes size. Colostomy: Adjusting to Your Body Getting used to a colostomy may take time. Learning to care for it and the changes in your body canbe tough. Keep in mind that you are still the same person you were before the colostomy. And you can still do many of the activities that you love. This sheet offers tips to help you adjust to havinga colostomy. Accepting yourself It?s normal to feel anxious about how your body has changed. But a healthcare provider will show you how to care for the colostomy and yourself. This may be a wound, ostomy, and continence (WOC) nurse. A WOC nurse is specially trained to care for people who have an ostomy. Soon, caring for your colostomy will become part of your daily routine?like bathing or brushing your teeth. Telling others It?s your choice to tell others about your colostomy. No one can tell by looking at you or being near you that you have a colostomy. Your pouch won?t bulge or smell if it?s put on right. You may worry about how to tell possible partners that you have a colostomy. It?s best to wait until you feel atease with the person. But talk about it before you decide to have sex. Sex and intimacy You may have some concerns about how a colostomy will affect your sexuality. This is normal. Talk with your WOC nurse about fears you may have. He or she can offer help and advice. Also, share your feelings with your partner. People with colostomies still have sex. They also date, , and have children. Below are some tips: ?? Give yourself time. Wait until you feel well and relaxed. Until you are ready, you can express love in other ways, such as hugging, kissing, and caressing. ?? Empty your pouch before you have sex. You may want to wear a pouch cover or a shirt over the pouch. Or you might tuck the pouch under a soft belt or inside underwear with an open crotch. ?? Don't put anything in the stoma during sex. Get support Talking with another person who has had a colostomy can help, too. Members of the UOAA are glad to answer questions and talk with you about any concerns you have. ?? [employer] [place], For loved ones The person you love has not changed because he or she has a colostomy. But it may take time for your loved one to adjust. They may be depressed or withdrawn at first. Do your best to support your loved one as they get used to having a colostomy. Your loved one may also want help caring for the colostomy at first. A [facility] nurse or other healthcare provider can show you what to do. If you have questions or concerns, you can talk with someone from the [employer] [place] (UOAA). The UOAA is a support group for people with ostomies. Colostomy: Living an Active Life You have been told you need a colostomy. Or you have recently been given one. Once you heal from surgery, you can still live an active life. In fact, if you had a chronic disease such as Crohn?s disease, your quality of life may be better now than before surgery. In most cases, it?s your choice howmuch having a colostomy limits your life. Work You can return to work as soon as your surgeon says it?s OK. Keep in mind that having a colostomy is not a handicap. People with colostomies do all kinds of work. This includes jobs that are outdoorsand physical. It also includes jobs that require a lot of standing or sitting. In fact, some athletes and movie stars have colostomies. ?? If you do heavy labor for your job, such as lifting or digging, talk with your healthcare provider. You may need to wear a special support to prevent a hernia. A hernia is a weakness or defect in the wall of the belly that allows the contents of the belly to push outward. ?? If you move a lot in your work, you may want to wear an ostomy belt over the pouch to hold it inplace. Activity You can most likely get back to your normal routine soon after surgery. This includes doing the sports and hobbies you may love, such as playing golf, doing aerobics, skiing, dancing, or taking walks. Being active is a good way to relieve stress and stay healthy. It can help you feel better about yourself, too. Until you have your strength back, ease back into being active. If you do a contact sport, such as football or karate, or lift weights, you may need to wear a special support or cover toprotect your stoma. Talk with your wound, ostomy, and continence (WOC) nurse. A WOC nurse is specially trained to care for people who have an ostomy. You'll need to limit your activity for 6 weeks after surgery to prevent a hernia from forming. Bathing and swimming Water will not hurt your stoma. You can take showers and baths, with or without the pouch. You can also go swimming. Pouches don?t show under most swimwear. Some tips: ?? Women often prefer to wear one-piece swimsuits with patterns or skirts. ?? Men often prefer boxer-type trunks. ?? If you?d like, use a rubber belt to hold the pouch in place. Elastic belts may change size when wet. Clothing Today?s pouches lie flat against the body. That means they don?t show, even under tight clothing. You can wear knits, belts, stretch pants?anything you like. Women can wear pantyhose, tights, and panty girdles. Just make sure that belts and waistbands don?t rub against your stoma. Travel With a colostomy, you can most likely still travel where you?d like. But you?ll need to take all your supplies with you. ?? If you fly, pack your supplies in your carry-on luggage. ?? If you drive, don?t put supplies in the trunk or glove compartment. They can get hot and melt. ?? Fasten your seatbelt above or below your stoma to avoid rubbing. In other countries, watch what you eat and drink. Avoid ice, tap water, and unpeeled fruits and vegetables. Drink only bottled water. Or, boil tap water and let it cool. These dietary changes may affect how your bowel functions. Contact [facility] 72-hours before your trip at [phone]. [facility] is a helpline for travelers with disabilities, medical conditions and other special circumstances. You can get help with the security screening process. The [facility] order entry representative will need your flight number. They will flag your ticket that you have an ostomy and may bring needed ostomy care items in your carry-on bag. Colostomy: Answers to Common Questions You have been told you need a colostomy. Or you have recently been given one. Below are answers to some questions you are likely to have. Learning as much as you can about your colostomy can help youadjust. Can I take my regular medicines when I have a colostomy? A colostomy could affect the way medicines act in the body. Talk with your healthcare provider about any medicines you take. Where do I buy pouches and skin care products? You can buy supplies through medical supply companies, some pharmacies, online, and in special catalogs. Be sure you know the maker and product number of the supplies you use. And order new supplies well before you run out. How can I know if a product will irritate my skin? If you have had a skin reaction before, you may want to do a patch test. Put a small amount (or a small piece of product) on your belly, away from the stoma. Remove it after 48 hours. If the skin isn?t red or sore, the product is OK to use. Know that you can develop an allergy to a product over time. If you start having a reaction to a product, stop using it. Then, call your wound, ostomy, and continence (WOC) nurse for advice. Why do I still sometimes feel as if I?m going to have a bowel movement through the rectum? This is called phantom rectum. The feeling is common. It may happen because nerves that were cut during surgery still send messages to the brain. The feeling may go away when you?ve healed from the surgery. If you still have your rectum, you may pass mucus from it sometimes. Some people find the feeling goes away if they sit on the toilet as if they were going to move their bowels. Where can I get more information? Your WOC nurse is there to answer your questions. So are your surgeon and other healthcare providers. Contacting the sources listed below is a good way to learn more: ?? [employer] [place] [phone] www.uoaa.org ?? [place] [phone] www.cancer.org ?? Wound, Ostomy, and Continence Nurses Society www.wocn.org/Patients * Lalit Gagnon MD - 04/12/2024 2:27 PM EDT Images from the original note were not included. 1366 After Colostomy Placement Before you leave the hospital Your nurse should go over: ?? Ostomy Diet Sheet ?? Understanding Your Colostomy booklet ?? Ostomy Tip sheet ?? Follow up appointment with your surgeon ?? How to make an appointment with the outpatient ostomy nurse. Call [phone]. Your nurse should give you: ?? Ostomy supplies for 3 pouch changes Surgeon: Phone: Home Health: Phone: Medical Supply Company: Phone: Discharge Instructions for Colostomy You just had a procedure that required a colostomy. This is a life-saving procedure that involves removing or disconnecting part of your colon (large intestine). If your large intestine was diseased,your healthcare provider may have removed it. If it was injured, your healthcare provider may have d isconnected it for a short time so that it can heal. After it heals, your healthcare provider may reconnect it. During a colostomy formation, your healthcare provider reroutes your colon through yourabdominal wall. Stool and mucus can then pass out of your body through this opening, called a stoma. These are general guidelines for home care after a colostomy. Your healthcare provider will go over any information that is specific to your condition. Home care Suggestions for home care include the following: ?? Take care of your stoma as directed. Your healthcare provider and ostomy nurse discussed how to do this with you before you left the hospital. ?? If someone will be helping you recover, ask the medical team to instruct that person on ostomy care too. ?? Don?t lift anything more than 5 pounds until your healthcare provider says it's OK. ?? Don?t drive until after your first healthcare provider?s appointment after your surgery. ?? If you ride in a car for more than short trips, stop often to stretch your legs. ?? Ask your healthcare provider when you can expect to return to work. Most people can return to work within 4 to 6 weeks after surgery. ?? Increase your activity gradually. Take short walks on a level surface. ?? Wash your incision site with mild soap and water or just water and pat it dry. ?? Check your incision every day for redness, drainage, swelling, or separation of the skin. ?? Take your medicines exactly as directed. Don?t skip doses. ?? Don?t take any kqlv-acg-kqybhwk medicine unless your healthcare provider tells you to do so. Call your healthcare provider Call your healthcare provider right away if you have any of the following: ?? Lots of bleeding from your stoma. Your provider may advise you to seek medical care right away or call 911. ?? Blood in your stool. Depending on the amount, you may be advised to seek medical care right awayor call 911. ?? Stool that is very hard ?? No gas or stool ?? Change in the color of your stoma ?? Bulging skin around your stoma ?? A stoma that looks like it?s getting longer ?? Fever of 100.4??F (38??C) or higher, or as advised by your healthcare provider ?? Shaking chills ?? Redness, swelling, bleeding, or drainage from your incision ?? Constipation ?? Diarrhea ?? Nausea or vomiting ?? Increased pain in the belly or around the stoma * Progress Notes - Edda Ortiz - 04/12/2024 1:59 PM EDT Case Management Discharge Note Sae Alexander 73 y.o. male CSN: [id number] Admission: 03/23/2024 4:04 AM Primary Problem: Rectal cancer (CMS/HCC) Primary Supervisor [place]: Primary Caregiver: Self Assistance Available at Discharge: Availability of Care Givers (#Hours): 24 hours Family/Supervisor [place](s) Willingness Assessed to care for patient at home: Yes Family/Supervisor [place](s) Readiness Assessed to care for patient at home: Yes Housing Circumstances-Z Codes: Housing Circumstances (select all that apply): None Applicable Discharge Facility/Level of Care Needs: Discharge Facility/Level of Care Needs: 3-Residential Facility Patient's Choice of Community Agency(s): Patient's Choice of Community Agency(s): [facility] Patient/Family Anticipated Services at Transition: Patient/Family Anticipated Services at Transition: none DME/Equipment Needed after Discharge: Equipment Currently Used at Home: none Equipment Needed After Discharge: none Readmission Within the Last 30 Days: Readmission Within the Last 30 Days: no previous admission in last 30 days Follow-up: No follow-up provider specified. Discharge Transportation: Transportation Anticipated: medical transport Transportation Home at Discharge: Medical Transport Has discharge transport been arranged?: Yes What day is the transport expected?: 04/12/24 What time is the transport expected?: 1630 Follow Up Transport: Transportation Needed to Follow up Appoinments: Self Additional Comments: TANIA spoke with MDs this date who indicate the pt is medically stable for DC this date and does not require further [facility] based care. Pt's appeal for insurance approval for acute rehab was approved. Pt will discharge to [facility] this date with transportationby [employer]/wheelchair. TANIA provided and update to the team and the facility liaison. TANIA provided thenumber for nurse to call report - [phone] and [facility] to the team, and will fax the discharge summary to [phone]. The patient does not have any identified SW concerns identified at this time. SW will continue to remain available and will follow up with DC planning and needs as appropriate. Edda Ortiz MSW, [employer] Cash Controller Senior Department of Case Management [facility] * Gregory Fall - 04/12/2024 11:32 AM EDT Images from the original note were not included. [id number] Rivaroxaban Oral Tablet 10 mg Brands: Xarelto Uses This medicine is used for the following purposes: ?? blood disorder ?? prevent blood clots ?? treatment of blood clots ?? blood clot Instructions If unable to swallow the tablet, crush and mix with applesauce. Mix well and eat immediately. If you are giving this medicine through a tube into the stomach, ask your doctor or pharmacist for specific directions. This medicine may be taken with or without food. This medicine will work best if you take it at about the same time every day. Store at room temperature away from heat, light, and moisture. Do not keep in the bathroom. It is important that you keep taking each dose of this medicine on time even if you are feeling well. If you miss a dose, contact your doctor for instructions. Drug interactions can change how medicines work or increase risk for side effects. Tell your healthcare providers about all medicines taken. Include prescription and cope-iqj-bjecipn medicines, vitamins, and herbal medicines. Speak with your doctor or pharmacist before starting or stopping any medicine. Talk to your doctor before taking other medicines, including aspirins and ibuprofen containing products. Speak to your doctor about which medicines are safe to use while you are on this medicine. Keep all appointments for medical exams and tests while on this medicine. Cautions Tell your doctor and pharmacist if you ever had an allergic reaction to a medicine. This medicine may cause bleeding from the stomach or bowels. Stop this medicine and call your doctor right away if you have pain in the stomach, red or dark tarry stools, or vomit that looks like coffee grounds. There is an increased risk of bleeding while on this medicine, please tell your doctor or nurse if you notice any excessive bleeding or bruising. Do not use the medication any more than instructed. Please check with your doctor before drinking alcohol while on this medicine. It is unknown if this medicine passes into breast milk. Ask your doctor before . During , this medicine should be used only when clearly needed. Talk to your doctor about the risks and benefits. Do not take [place]'s wort while on this medicine. Do not share this medicine with anyone who has not been prescribed this medicine. Some patients have serious side effects from this medicine. Ask your pharmacist to show you the information from the Food and Drug Administration (FDA) and discuss it with you. Always refill this medicine before it runs out. Side Effects The following is a list of some common side effects from this medicine. Please speak with your doctor about what you should do if you experience these or other side effects. ?? nosebleeds Call your doctor or get medical help right away if you notice any of these more serious side effects: ?? back pain ?? inability to control bladder or bowel movements ?? bleeding or bruising ?? confusion ?? coughing up blood or vomit that looks like coffee grounds ?? fainting ?? numbness or tingling in hands and feet ?? loss of movement anywhere on the body ?? slurred speech ?? bloody or dark, tarry stools ?? difficulty swallowing ?? unusual or unexplained tiredness or weakness ?? blood in urine ?? blurring or changes of vision ?? weakness on one side of the body A few people may have an allergic reaction to this medicine. Symptoms can include difficulty breathing, skin rash, itching, swelling, or severe dizziness. If you notice any of these symptoms, seek medical help quickly. Extra Please speak with your doctor, nurse, or pharmacist if you have any questions about this medicine. [email or web address] IMPORTANT NOTE: This document tells you briefly how to take your medicine, but it does not tell youall there is to know about it. Your doctor or pharmacist may give you other documents about your medicine. Please talk to them if you have any questions. Always follow their advice. There is a more complete description of this medicine available in [place]. Scan this code on your smartphone or tablet or use the web address below. You can also ask your pharmacist for a printout. If you have any questions, please ask your pharmacist. The display and use of this drug information is subject to Terms of Use. Copyright(c) 2023 [employer] ?? 7210-9250 [employer]. All rights reserved. This information is not intended as a substitute for professional medical care. Always follow your healthcare professional's instructions. * Progress Notes - Lalit Newton MD - 04/12/2024 8:57 AM EDT Images from the original note were not included. [facility] Department of Surgery Division of Colon & Rectal Surgery Surgery Progress Note 04/12/24 Sae Alexander Full Code Subjective Subjective: HPI 73M with prior LAR for stage III colon cancer (2019), noncompliant with adjuvant chemotx presentingfrom OSH with large rectal mass c/w recurrent rectal cancer and c/f perforation. 03/30: flex sig with bx, colostomy creation Interval: NAEO. No concerns this morning. Awaiting rehab placement. I: PO 660 O: UOP 1050 Stool 200 Edited by: Lalit Newton MD at 04/12/2024 0858 Review of Systems: Relevant review of systems was obtained as able and is negative unless stated above in HPI. Objective Objective: Vital signs: Vitals: 04/12/24 0743 BP: (!) 174/72 Pulse: 74 Resp: 18 Temp: 36.3 ??C (97.4 ??F) SpO2: 97% Physical Exam: Physical Exam Vitals reviewed. Constitutional: Appearance: He is normal weight. HENT: Head: Normocephalic and atraumatic. Eyes: General: No scleral icterus. Extraocular Movements: Extraocular movements intact. Cardiovascular: Rate and Rhythm: Normal rate. Pulmonary: Effort: Pulmonary effort is normal. No respiratory distress. Abdominal: General: Abdomen is flat. There is no distension. Comments: Ostomy is well perfused and there is stool and gas in bag. Genitourinary: Comments: Rodriguez with CYU Skin: General: Skin is warm and dry. Coloration: Skin is not jaundiced. Neurological: General: No focal deficit present. Mental Status: He is alert. Psychiatric: Mood and Affect: Mood normal. Behavior: Behavior normal. Intake/Output Summary (Last 24 hours) at 04/12/2024 0858 Last data filed at 04/12/2024 0500 Gross per 24 hour Intake 380 ml Output 1050 ml Net -670 ml Lines/Drains/Tubes: Patient Lines/Drains/Airways Status Active Airway None Output by Drain (mL) 04/10/24 0700 - 04/10/24 1859 04/10/24 1900 - 04/11/24 0659 04/11/24 0700 - 04/11/24 1859 04/11/24 1900 - 04/12/24 0659 04/12/24 0700 - 04/12/24 0858 Requested LDAs do not have output data documented. Labs in last 18 hours: CBC WBC ?? Hb ?? Plt ?? Hct ?? ANC ?? INR ??, PTT ??, Anti-Xa ?? MCV ?? BMP Na ?? Cl ?? BUN ?? Glu ?? K ?? Co2 ?? Cr ?? Ca ?? iCa ?? Mg ??, Phos ?? Lactate ?? LFT AST ?? AlkPhos ?? T Prot ?? ALK ?? Bili ?? Alb ?? D.Bili ?? Lab Trends: H/H INR Cr Lactate No lab exists for component: LACTTEVEN Radiographic Interpretation: No imagining today. Medications reviewed. Vital signs reviewed. Labs reviewed. Assessment/Plan Assessment and Plan: Medical Problems Problem List * (Principal) Rectal cancer (CMS/HCC) Present on Admission: Rectal cancer (CMS/HCC) Mr. Alexander is a 73 y.o. year old male admitted for Rectal cancer (CMS/HCC) who is now status post flexible sigmoidoscopy with biopsy and colostomy creation on 03/30. Postoperative course has been uncomplicated and he is recovering as expected and ready for discharge. Insurance has denied rehab placement and appeal has been initiated. Plan Today: -Continue to monitor scrotal edema -Coreg 25 BID and Lisinopril 30mg daily -Intermittent rodriguez flush -PT/OT recs: AR. Medically ready for discharge. -Urology consulted 03/31, recommendations: Continue rodriguez, follow up outpatient for possible suprapubic catheter placement Diet: GI soft, boost. Pain: PO MMPC VTE ppx: Xarelto Dispo: Continue Current Level of Care Lalit Newton MD Cosigned by Jeremy Cazares MD at 04/12/2024 11:06 AM EDT Associated attestation - Jeremy Cazares MD - 04/12/2024 11:06 AM EDT I saw and evaluated the patient with the resident/fellow. I discussed the case with the resident/fellow and agree with the findings and plan as documented. Mr. Alexander is a 73-year-old s/p colostomy creation for LBO. Awaiting rehab placement. PLAN FOLLOWS: Continue postoperative care. * Hospital Course - Lalit Newton MD - 04/12/2024 8:19 AM EDT Sae Alexander is a 73 y.o. 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 He was found to have candidemia on admission and was treated appropriately. On 03/30/2024, the patient underwent a flexible sigmoidoscopy with biopsy and colostomy creation. The patient tolerated the procedure well and there were no complications. 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 His postoperative course was uncomplicated and after being evaluatedby PT/OT, he was referred to acute rehab. Urology was consulted and recommended continuing rodriguez and following up as an outpatient to discuss suprapubic catheter. On 04/12/24 , patient has been hemodynamically stable and deemed medically appropriate for discharge. Currently, the patient's pain is well controlled on an oral regimen. They have return of bowel function and are tolerating a regular diet with no nausea/vomiting. He will be discharged with a urinary catheter in place. The patient will be discharged to acute rehab and will followup with Jeremy Jonas MD in clinic in about 2 weeks. * Care Plan - Tarah Hernandez - 04/11/2024 8:30 PM EDT Problem: Adult Inpatient Plan of Care Goal: Plan of Care Review Outcome: Ongoing, Progressing Goal: Patient-Specific Goal (Individualized) Outcome: Ongoing, Progressing Goal: Absence of Hospital-Acquired Illness or Injury Outcome: Ongoing, Progressing Goal: Optimal Comfort and Wellbeing Outcome: Ongoing, Progressing Goal: Readiness for Transition of Care Outcome: Ongoing, Progressing Problem: Infection Goal: Absence of Infection Signs and Symptoms Outcome: Ongoing, Progressing Problem: Balance Impairment (Functional Deficit) Goal: Improved Balance and Postural Control Outcome: Ongoing, Progressing Problem: Mobility Impairment Goal: Optimal Mobility Outcome: Ongoing, Progressing * Progress Notes - Lalit Newton MD - 04/11/2024 2:56 PM EDT Images from the original note were not included. [facility] Department of Surgery Division of Colon & Rectal Surgery Surgery Progress Note 04/11/24 Sae Alexander Full Code Subjective Subjective: HPI 73M with prior LAR for stage III colon cancer (2019), noncompliant with adjuvant chemotx presentingfrom OSH with large rectal mass c/w recurrent rectal cancer and c/f perforation. 03/30: flex sig with bx, colostomy creation Interval: NAEO. No concerns this morning. Awaiting rehab placement. I: PO 620* O: UOP 1150 Stool 350* Edited by: Lalit Newton MD at 04/11/2024 4096 Review of Systems: Relevant review of systems was obtained as able and is negative unless stated above in HPI. Objective Objective: Vital signs: Vitals: 04/11/24 1153 BP: (!) 154/64 Pulse: 58 Resp: 17 Temp: 36.7 ??C (98.1 ??F) SpO2: 96% Physical Exam: Physical Exam Vitals reviewed. Constitutional: Appearance: He is normal weight. HENT: Head: Normocephalic and atraumatic. Eyes: General: No scleral icterus. Extraocular Movements: Extraocular movements intact. Cardiovascular: Rate and Rhythm: Normal rate. Pulmonary: Effort: Pulmonary effort is normal. No respiratory distress. Abdominal: General: Abdomen is flat. There is no distension. Comments: Ostomy is well perfused and there is stool and gas in bag. Genitourinary: Comments: Rodriguez with CYU Skin: General: Skin is warm and dry. Coloration: Skin is not jaundiced. Neurological: General: No focal deficit present. Mental Status: He is alert. Psychiatric: Mood and Affect: Mood normal. Behavior: Behavior normal. Intake/Output Summary (Last 24 hours) at 04/11/2024 1456 Last data filed at 04/11/2024 0800 Gross per 24 hour Intake -- Output 900 ml Net -900 ml Lines/Drains/Tubes: Patient Lines/Drains/Airways Status Active Airway None Output by Drain (mL) 04/09/24 0700 - 04/09/24 1859 04/09/24 1900 - 04/10/24 0659 04/10/24 0700 - 04/10/24 1859 04/10/24 1900 - 04/11/24 0659 04/11/24 0700 - 04/11/24 1456 Requested LDAs do not have output data documented. Labs in last 18 hours: CBC WBC ?? Hb ?? Plt ?? Hct ?? ANC ?? INR ??, PTT ??, Anti-Xa ?? MCV ?? BMP Na ?? Cl ?? BUN ?? Glu ?? K ?? Co2 ?? Cr ?? Ca ?? iCa ?? Mg ??, Phos ?? Lactate ?? LFT AST ?? AlkPhos ?? T Prot ?? ALK ?? Bili ?? Alb ?? D.Bili ?? Lab Trends: H/H Results from last 7 days Lab Units 04/04/24 1622 HEMOGLOBIN g/dL 12.0* HEMATOCRIT % 38.5* INR Cr Results from last 7 days Lab Units 04/04/24 1622 CREATININE mg/dL 0.65* Lactate No lab exists for component: LACTTEVEN Radiographic Interpretation: No imagining today. Medications reviewed. Vital signs reviewed. Labs reviewed. Assessment/Plan Assessment and Plan: Medical Problems Problem List * (Principal) Rectal cancer (CMS/HCC) Present on Admission: Rectal cancer (CMS/HCC) Mr. Alexander is a 73 y.o. year old male admitted for Rectal cancer (CMS/HCC) who is now status post flexible sigmoidoscopy with biopsy and colostomy creation on 03/30. Postoperative course has been uncomplicated and he is recovering as expected and ready for discharge. Insurance has denied rehab placement and appeal has been initiated. Plan Today: -Continue to monitor scrotal edema -Coreg 25 BID and Lisinopril 30mg daily -Intermittent rodriguez flush -PT/OT recs: AR. Medically ready for discharge. -Urology consulted 03/31, recommendations: Continue rodriguez, follow up outpatient for possible suprapubic catheter placement Diet: GI soft, boost. Pain: PO MMPC VTE ppx: Xarelto Dispo: Continue Current Level of Care Lalit Newton MD Cosigned by Jeremy Cazares MD at 04/11/2024 11:18 PM EDT Associated attestation - Jeremy Cazares MD - 04/11/2024 11:18 PM EDT I saw and evaluated the patient with the resident/fellow. I discussed the case with the resident/fellow and agree with the findings and plan as documented. Mr. Alexander is a 73-year-old male status post colostomy creation for locally advanced recurrent rectal cancer. Awaiting placement for short-term rehab. PLAN FOLLOWS: Continue postoperative care. * Progress Notes - Lalit Newton MD - 04/10/2024 1:38 PM EDT Images from the original note were not included. [facility] Department of Surgery Division of Colon & Rectal Surgery Surgery Progress Note 04/10/24 Sae Alexander Full Code Subjective Subjective: HPI 73M with prior LAR for stage III colon cancer (2019), noncompliant with adjuvant chemotx presentingfrom OSH with large rectal mass c/w recurrent rectal cancer and c/f perforation. 03/30: flex sig with bx, colostomy creation Interval: NAEO. He was tolerating diet and having bowel function. He has no concerns today. I: NR O: UOP 800* Stool 150 Edited by: Lalit Newton MD at 04/10/2024 1338 Review of Systems: Relevant review of systems was obtained as able and is negative unless stated above in HPI. Objective Objective: Vital signs: Vitals: 04/10/24 1207 BP: (!) 148/69 Pulse: 63 Resp: Temp: 36.7 ??C (98.1 ??F) SpO2: 97% Physical Exam: Physical Exam Vitals reviewed. Constitutional: Appearance: He is normal weight. HENT: Head: Normocephalic and atraumatic. Eyes: General: No scleral icterus. Extraocular Movements: Extraocular movements intact. Cardiovascular: Rate and Rhythm: Normal rate. Pulmonary: Effort: Pulmonary effort is normal. No respiratory distress. Abdominal: General: Abdomen is flat. There is no distension. Comments: Ostomy in place with output Genitourinary: Comments: Rodriguez with CYU Skin: General: Skin is warm and dry. Coloration: Skin is not jaundiced. Neurological: General: No focal deficit present. Mental Status: He is alert. Psychiatric: Mood and Affect: Mood normal. Behavior: Behavior normal. Intake/Output Summary (Last 24 hours) at 04/10/2024 1339 Last data filed at 04/10/2024 1200 Gross per 24 hour Intake -- Output 1750 ml Net -1750 ml Lines/Drains/Tubes: Patient Lines/Drains/Airways Status Active Airway None Output by Drain (mL) 04/08/24 0700 - 04/08/24 1859 04/08/24 1900 - 04/09/24 0659 04/09/24 0700 - 04/09/24 1859 04/09/24 1900 - 04/10/24 0659 04/10/24 0700 - 04/10/24 1339 Requested LDAs do not have output data documented. Labs in last 18 hours: CBC WBC ?? Hb ?? Plt ?? Hct ?? ANC ?? INR ??, PTT ??, Anti-Xa ?? MCV ?? BMP Na ?? Cl ?? BUN ?? Glu ?? K ?? Co2 ?? Cr ?? Ca ?? iCa ?? Mg ??, Phos ?? Lactate ?? LFT AST ?? AlkPhos ?? T Prot ?? ALK ?? Bili ?? Alb ?? D.Bili ?? Lab Trends: H/H Results from last 7 days Lab Units 04/04/24 1622 HEMOGLOBIN g/dL 12.0* HEMATOCRIT % 38.5* INR Cr Results from last 7 days Lab Units 04/04/24 1622 CREATININE mg/dL 0.65* Lactate No lab exists for component: LACTTEVEN Radiographic Interpretation: No imagining today. Medications reviewed. Vital signs reviewed. Labs reviewed. Assessment/Plan Assessment and Plan: Medical Problems Problem List * (Principal) Rectal cancer ([facility]/HCC) Present on Admission: Rectal cancer (CMS/HCC) Mr. Alexander is a 73 y.o. year old male admitted for Rectal cancer ([facility]) who is now status post flexible sigmoidoscopy with biopsy and colostomy creation on 03/30. Postoperative course has been uncomplicated and he is recovering as expected and ready for discharge. Insurance has denied rehab placement and appeal has been initiated. Plan Today: -Continue to monitor scrotal edema -Coreg 25 BID and Lisinopril 30mg daily -Intermittent rodriguez flush -PT/OT recs: AR. Medically ready for discharge. -Urology consulted 03/31, recommendations: Continue rodriguez, follow up outpatient for possible suprapubic catheter placement Diet: GI soft, boost. Pain: PO MMPC VTE ppx: Xarelto Dispo: Continue Current Level of Care Lalit Newton MD Cosigned by Jeremy Cazares MD at 04/11/2024 11:18 PM EDT Associated attestation - Jeremy Cazares MD - 04/11/2024 11:18 PM EDT I saw and evaluated the patient with the resident/fellow. I discussed the case with the resident/fellow and agree with the findings and plan as documented. Mr. Alexander is a 73-year-old male status post colostomy creation for locally advanced recurrent rectal cancer. Awaiting placement for short-term rehab. PLAN FOLLOWS: Continue postoperative care. * Care Plan - Dian Benoit - 04/10/2024 11:27 AM EDT Problem: Adult Inpatient Plan of Care Goal: Plan of Care Review Outcome: Ongoing, Progressing Goal: Patient-Specific Goal (Individualized) Outcome: Ongoing, Progressing Goal: Absence of Hospital-Acquired Illness or Injury Outcome: Ongoing, Progressing Goal: Optimal Comfort and Wellbeing Outcome: Ongoing, Progressing Goal: Readiness for Transition of Care Outcome: Ongoing, Progressing Problem: Infection Goal: Absence of Infection Signs and Symptoms Outcome: Ongoing, Progressing Problem: Balance Impairment (Functional Deficit) Goal: Improved Balance and Postural Control Outcome: Ongoing, Progressing Problem: Mobility Impairment Goal: Optimal Mobility Outcome: Ongoing, Progressing * Progress Notes - Lalit Newton MD - 04/09/2024 12:45 PM EDT Images from the original note were not included. [facility] Department of Surgery Division of Colon & Rectal Surgery Surgery Progress Note 04/09/24 Sae Alexander Full Code Subjective Subjective: HPI 73M with prior LAR for stage III colon cancer (2019), noncompliant with adjuvant chemotx presentingfrom OSH with large rectal mass c/w recurrent rectal cancer and c/f perforation. 03/30: flex sig with bx, colostomy creation Interval: NAEO. AF, VSS. Process to appeal insurance denial for rehab started. I: PO 120* O: UOP 1350 Stool 150 Edited by: Lalit Newton MD at 04/09/2024 1243 Review of Systems: Relevant review of systems was obtained as able and is negative unless stated above in HPI. Objective Objective: Vital signs: Vitals: 04/09/24 1127 BP: (!) 154/69 Pulse: 62 Resp: Temp: 36.6 ??C (97.8 ??F) SpO2: 98% Physical Exam: Physical Exam Vitals reviewed. Constitutional: Appearance: He is normal weight. HENT: Head: Normocephalic and atraumatic. Eyes: General: No scleral icterus. Extraocular Movements: Extraocular movements intact. Cardiovascular: Rate and Rhythm: Normal rate. Pulmonary: Effort: Pulmonary effort is normal. No respiratory distress. Abdominal: General: Abdomen is flat. There is no distension. Comments: Ostomy in place with output Genitourinary: Comments: Rodriguez with CYU Skin: General: Skin is warm and dry. Coloration: Skin is not jaundiced. Neurological: General: No focal deficit present. Mental Status: He is alert. Psychiatric: Mood and Affect: Mood normal. Behavior: Behavior normal. Intake/Output Summary (Last 24 hours) at 04/09/2024 1246 Last data filed at 04/09/2024 0329 Gross per 24 hour Intake 120 ml Output 1500 ml Net -1380 ml Lines/Drains/Tubes: Patient Lines/Drains/Airways Status Active Airway None Output by Drain (mL) 04/07/24 0700 - 04/07/24 1859 04/07/24 1900 - 04/08/24 0659 04/08/24 0700 - 04/08/24 1859 04/08/24 1900 - 04/09/24 0659 04/09/24 0700 - 04/09/24 1246 Requested LDAs do not have output data documented. Labs in last 18 hours: CBC WBC ?? Hb ?? Plt ?? Hct ?? ANC ?? INR ??, PTT ??, Anti-Xa ?? MCV ?? BMP Na ?? Cl ?? BUN ?? Glu ?? K ?? Co2 ?? Cr ?? Ca ?? iCa ?? Mg ??, Phos ?? Lactate ?? LFT AST ?? AlkPhos ?? T Prot ?? ALK ?? Bili ?? Alb ?? D.Bili ?? Lab Trends: H/H Results from last 7 days Lab Units 04/04/24 1622 04/02/24 1327 HEMOGLOBIN g/dL 12.0* 13.7 HEMATOCRIT % 38.5* 43.5 INR Cr Results from last 7 days Lab Units 04/04/24 1622 04/02/24 1327 CREATININE mg/dL 0.65* 0.61* Lactate No lab exists for component: LACTTEVEN Radiographic Interpretation: No imagining today. Medications reviewed. Vital signs reviewed. Labs reviewed. Assessment/Plan Assessment and Plan: Medical Problems Problem List * (Principal) Rectal cancer (CMS/HCC) Present on Admission: Rectal cancer (CMS/HCC) Mr. Alexander is a 73 y.o. year old male admitted for Rectal cancer (CMS/HCC) who is now status post flexible sigmoidoscopy with biopsy and colostomy creation on 03/30. Postoperative course has been uncomplicated and he is recovering as expected and ready for discharge. Insurance has denies rehab placement and appeal has been initiated. Plan Today: -Continue to monitor scrotal edema, at stable baseline per patient -Coreg 25 BID and Lisinopril 30mg daily -Abx: Zosyn (03/23-), Vanc (03/26 - ), micafungin (03/27-04/04) Fluc (04/04-04/09) -Intermittent rodriguez flush -PT/OT recs: acute rehab. Medically ready for discharge. -Urology consulted 03/31, recommendations: Continue rodriguez, follow up outpatient for possible suprapubic catheter placement Diet: GI soft, boost. Pain: PO MMPC VTE ppx: Xarelto Dispo: Continue Current Level of Care Lalit Newton MD Cosigned by Jeremy Cazares MD at 04/09/2024 11:54 PM EDT Associated attestation - Jeremy Cazares MD - 04/09/2024 11:54 PM EDT I saw and evaluated the patient with the resident/fellow. I discussed the case with the resident/fellow and agree with the findings and plan as documented. Mr. Alexander is a 73-year-old male status post colostomy creation in the setting of locally advancedrectal cancer. Placement for rehabilitation. PLAN FOLLOWS: Continue postoperative care. * Consults - Lina Weller RD - 04/08/2024 4:35 PM EDT Adult Nutrition Evaluation Note Sae Alexander 73 y.o. male CSN: [id number] Room/Bed 129/129A Nutrition evaluation type: follow-up Reason for evaluation: Hospital course: 73 y o M with PMH of LAR for stage III colon cancer; was noncompliant with systemic chemotherapy and no further follow-up was completed; transferred from OSH with large rectal mass that is consistentwith recurrent rectal cancer, contributing to LAR. Plan noted for OR 03/30 for lap colostomy creation, flex-sig & all other indicated procedures. (04/04): Pt s/p OR 04/01 for flex-sig with Bx & diverting colostomy creation. (04/08): Dispo noted. Past medical/ surgical history: Past Medical History: Diagnosis Date Essential (primary) hypertension HTN (hypertension) Gout Pure hypercholesterolemia, unspecified Elevated cholesterol * Per notes: colon cancer Past Surgical History: Procedure Laterality Date CHOLECYSTECTOMY N/A Cholecystectomy from [facility] * Per notes: LAR Social history: Social History Tobacco Use Smoking status: Former Tobacco comments: Former smoker, [id number] 1.5 ppd Substance Use Topics Alcohol use: Never Drug use: Never Additional comments: 04/08: Per notes, pt has been drinking the Boost supplements. Vitals and Basic Assessment: BP: (!) 169/61 Temp: 36.3 ??C (97.4 ??F) Oxygen Therapy: None (Room air) O2 Delivery Method: Nasal cannula Metter Coma Scale Score: 15 South Scale Score: 20 - upper abd incision, umbilicus incision Last BM Date: 04/07/24 GI Symptoms: Diarrhea Edema: Generalized Ostomy output: 04/07: 100 mL, 04/06: 200 mL, 04/05: 100 mL Allergies: NKA Medications: allopurinol, 300 mg, Oral, Daily carvedilol, 25 mg, Oral, BID fluconazole, 400 mg, Oral, Daily lisinopril, 20 mg, Oral, Daily pantoprazole, 40 mg, Oral, Daily rivaroxaban, 10 mg, Oral, Daily with dinner sodium chloride, 10 mL, Intravenous, q12h tamsulosin, 0.8 mg, Oral, Daily theophylline ER, 300 mg, Oral, Daily PRN medications: acetaminophen, albuterol, hydrALAZINE, labetalol, methocarbamol, oxyCODONE, [COMPLETED] Insert peripheral IV AND [COMPLETED] Saline lock IV AND sodium chloride AND sodiumchloride Meds were reviewed: Yes Labs: Results from last 7 days Lab Units 04/04/24 1622 04/02/24 1327 WBC 10*3/uL 9.75 17.31* HEMOGLOBIN g/dL 12.0* 13.7 HEMATOCRIT % 38.5* 43.5 PLATELETS 10*3/uL 286 454* Results from last 7 days Lab Units 04/04/24 1622 04/02/24 1327 SODIUM mmol/L 136 136 POTASSIUM mmol/L 3.8 3.7 CHLORIDE mmol/L 104 101 CO2 mmol/L 24 20* BUN mg/dL 9 10 CREATININE mg/dL 0.65* 0.61* EGFR mL/min/1.73m*2 100.7 102.7 GLUCOSE mg/dL 114* 98 CALCIUM mg/dL 8.6* 8.5* PHOSPHORUS mg/dL 2.6 2.3* No results found for: MG Lab Results Component Value Date ALT 11 03/31/2024 AST 14 03/31/2024 ALKPHOS 235 (H) 03/31/2024 BILITOT 0.5 03/31/2024 Lab Results Component Value Date ALBUMIN 2.4 (L) 03/31/2024 -Albumin is a negative acute phase protein, and therefore not a reliable indicator of malnutrition. No results found for: PREALBUMIN No results found for: CRP No results found for: HGBA1C No results found for: CHOL No results found for: HDL No results found for: LDLCALC No results found for: TRIG Anthropometrics: Height: 160 cm Weight: 54 kg IBW: 52.3 kg %IBW: 103.3 Adjusted Body Weight: N/A BMI: 21.1 Wt evaluation: Normal Weight History: Wt Readings from Last 30 Encounters: 03/31/24 54 kg (119 lb 0.8 oz) Estimated Needs: Current Nutrition Intake: Diet: Ostomy Supplements: Boost Plus TID Intake: avg 75% of documented meals since last RD review 5 days ago Diet Experience & Nutrition History: Diet Education: Ostomy diet education provided 04/04 - please refer to RD educator note for further details Pertinent Home Medications: Bentyl, Prilosec, Zocor, Theophylline Nutrition Focused Physical Exam: Physical exam performed on (date): pending Assessment of Malnutrition: Nutrition Problem: Altered GI function related to colon cancer as evidenced by requiring ostomy creation. Status of Nutrition Diagnosis: Ongoing Nutrition Interventions and Recommendations: -Continue Ostomy diet -Continue Boost Plus TID -Recommend MVI with minerals daily -Recommend weekly weight monitoring Nutrition Monitoring and Goals: -Monitor tolerance and adequacy of po intake / enteral infusion, wt changes, bowel fxn, labs, skin integrity; and follow up per acuity -Pt will tolerate diet advancement, and consume >/= 75% of most meals & supplements (met; ongoing) -NFPE on follow up Acuity Level: [address] * Progress Notes - Manjula Angelo RN - 04/08/2024 3:24 PM EDT Ostomy Progress Note Visit Date: 04/08/2024 Patient Name: Sae Alexander Date of : 1950 Followed up with patient for additional hands on practice. Patient changed the appliance with standby assist. He notes he learned a but more today. Eduction Patient and/or caregiver demonstrated appliance change prior to discharge. All of patient's current ostomy questions answered. Discussed normal stoma characteristics. Discussed when to change the appliance. Patient taught how to use the flat barrier ring. Stomal edema decreasing, able to cut the appliance just inside the 2 1/2 marker. Wound Ostomy Assessment: Colostomy RUQ (Active) 03/30/24 1518 RUQ Present on Admission: Earliest Known Present: Placed by External Staff?: Inserted by: Hand Hygiene Completed: Colostomy Type: Stoma Size (cm): Earliest Known Removed: Removal Reason : Stomal Appliance 1 piece;Flat Ring;Flat Barrier/Pouch 04/08/24 1500 Site Assessment Raised;Red;Skinfold/Dip 04/08/24 1500 Peristomal Assessment Intact 04/08/24 1500 Treatment Bag change 04/08/24 1500 Output (mL) 50 mL 04/08/24 1500 Gastric Output Appearance Soft 04/08/24 1500 Gastric Output Color Brown 04/08/24 1500 Manjula Angelo RN 04/08/2024 3:24 PM * Progress Notes - Kaity Lamar - 04/08/2024 12:20 PM EDT Physical Therapy Treatment Patient Name: Sae Alexander Today's Date: 04/08/2024 PT Discharge Recommendations: Acute rehab Equipment Recommended: Defer to facility Subjective I feel I am getting better, but still just weak Participants in Care Family/Caregiver Present: No Dentofacial Orthopedics Dentist: Not Applicable Presentation Oxygen Therapy: None (Room air) Lines and Tubes: Urinary catheter, Intravenous access Pre-Session: Supine, Head of bed elevated, Lines intact Pre-Session Comments: RN gave consent to treatment session. Post-Session: Sitting in chair, Chair alarm, Lines intact, RN notified, Call light in reach Post-Session Comments: All needs addressed Precautions Medical Precautions: Fall precautions Medical Precautions: HOB 30 degrees Objective Pain Patient denied pain at rest and with mobility. He experiences drainage from backside and with mild discomfort during initial sit. He was positioned for comfort and pressure relief at conclusion of session. Delirium Screening [place] Agitation Sedation Scale (RASS): Alert and calm Confusion Assessment Method-ICU (CAM-ICU/PCAM-ICU) Feature 3: Altered Level of Consciousness: Negative Bed Mobility Bed Mobility Exam: Scooting/Bridging Level of Pleasants: Stand-by assist (scooting to eob.) Physical/Nonphysical Assist: Verbal Cues, Nonverbal cues (demo/gestures) Bed Mobility Exam: Supine to Sit Level of Pleasants: Stand-by assist Physical/Nonphysical Assist: Verbal Cues, Nonverbal cues (demo/gestures), HOB elevated Transfers Transfer Interventions: Sit to/from stand transfers performed from various surface heights and compliances to assist with transference of skills across environmental differences. Transfer Exam: Sit to stand Level of Pleasants: Contact guard (x4 reps throughout session) Physical/Nonphysical Assist: Verbal Cues, Nonverbal cues (demo/gestures) Assistive Device: Walker, rolling Transfer Exam: Stand to Sit Level of Pleasants: Contact guard Physical/Nonphysical Assist: Verbal Cues, Nonverbal cues (demo/gestures) Assistive Device: Walker, rolling Balance Postural Appearance Posture: Stooped posture, Forward head Static Sitting Balance Static Sitting-Balance Support: Feet supported Static Sitting-Level of Assistance: Standby assist Dynamic Sitting Balance Dynamic Sitting-Balance Support: Feet supported Dynamic Sitting-Balance: Lateral weight shifts, Anterior/Posterior weight shifts, Reaching for objects Level of Assistance: Contact guard Static Standing Balance Static Standing-Balance Support: No upper extremity supported Static Standing-Level of Assistance: Minimum assistance Static Standing - Interventions: PT engaged patient in Romberg, semi-tandem, and tandem stance positions, incorporating horizontal and vertical head turns, and varying eyes open vs. eyes closed, to challenge VOR and ankle strategy for greater postural control and righting reactions. 30 sec intervals. Initial modA to correct for posterior LOB, however patient most consistenly requiring Aditi for postural control with acclimation to positioning. Dynamic Standing Balance Dynamic Standing-Balance Support: Right upper extremity support, Left upper extremity support Dynamic Standing Level of Assistance: Contact guard Therapeutic Activity (6 minutes) Refer to bed mobility, balance, and transfers sections for intervention details. Rest breaks required for muscle recovery to allow for subsequent mobility tasks. Gait Training (10 minutes) Device: Rolling walker Assistance: Contact guard assist Distance: 50' + 50' - standing rest break Gait Analysis: Patient ambulates with reciprocal gait pattern at decreased gait speed with foot flat contact and mild pelvic obliquity. He maintains forward flexed posture with limited environmental scanning. More appropriate body positioning with use of RW this date. Gait Training Interventions: Visual feedback for environmental scanning and manual input for postural control during change in direction. He ambulates at a gait speed of .33 m/sec which is indicativethat he is at increased risk for falls. RPE 7/10 following gait trials. Therapeutic Exercise (10 minutes) PT engaged patient in standing marches to progress cardiovascular and LE muscle endurance, 10 reps x 3. Aditi for postural control without UE support with use of poor mechanics requiring verbal cues and manual input to optimize ergonomics. In addition, PT engaged patient in repetitive sit to/from stand transfers to progress force production to sustained activity. 5 reps x2. Assessment Patient is demonstrating gradual improvement with therapy services. He is highly motivated and shows good compliance with HEP. While patient is showing greater independence with mobility, he continues to rely on use of RW for ambulation and ambulates with a gait speed that is indicative of being atincreased risk for falls. Given his lack of social support at home and continued deficits limiting his ability to participate in sustained dynamic mobility, he would benefit from skilled services prior to return home to progress activity tolerance and address balance deficits. PT Recommendations Discharge Destination: Acute rehab Discharge Equipment: Defer to facility Plan Circuit training. PT Goals PT GOAL DETAILS Goal Established Date Time Frame Goal Status PT Goal 1: Pt will perform supine to sit mobility to the EOB with no more than Aditi for improved functional independence. 04/02/24 2 weeks PT Goal 2: Pt will perform sit to stand transfer with the least restrictive assistive device and CGA. 04/02/24 2 weeks PT Goal 3: Pt will walk at least 100 feet with the least restrictive assistive device and CGA. 04/02/24 2 weeks PT Goal 4: Pt will demonstrate understanding of HEP and discharge recommendations. 04/02/24 2 weeks Written by Kaity Lamar on 04/08/24 at 1:50 PM. * Progress Notes - Kalyani Acuna - 04/08/2024 12:01 PM EDT SW was informed by the team that the pt's P2P was denied. SW contacted the liaison who provided a number for the pt to do a Self/Family appeal. SW visited the pt at bedside and assisted him in completing his appeal. SW faxed all requested information to the pt's insurance. This included progress notes and PT/OT notes. SW will continue to monitor and assist with any CM needs. * Progress Notes - Sudha Villagran DO - 04/08/2024 10:50 AM EDT Images from the original note were not included. [facility] Department of Surgery Division of Colorectal Surgery Surgery Progress Note 04/08/24 Sae Mai Alex Subjective Subjective: HPI 73M with prior LAR for stage III colon cancer (2019), noncompliant with adjuvant chemotx presentingfrom OSH with large rectal mass c/w recurrent rectal cancer and c/f perforation. 03/30: flex sig with bx, colostomy creation Interval: NAEON. Peer to peer denies yesterday. Edited by: Sudha Villagran DO at 04/08/2024 1043 Review of Systems: Relevant review of systems was obtained as able and is negative unless stated above in HPI. Objective Objective: Vital signs: Vitals: 04/08/24 0824 BP: (!) 194/72 Pulse: 61 Resp: 16 Temp: 36.6 ??C (97.8 ??F) SpO2: 97% Physical Exam: Physical Exam Constitutional: Appearance: Normal appearance. Cardiovascular: Rate and Rhythm: Normal rate. Pulses: Normal pulses. Pulmonary: Effort: Pulmonary effort is normal. Abdominal: General: Abdomen is flat. Comments: Ostomy in place with output Musculoskeletal: Cervical back: Normal range of motion. Neurological: Mental Status: He is alert. Intake/Output Summary (Last 24 hours) at 04/08/2024 1050 Last data filed at 04/08/2024 0405 Gross per 24 hour Intake -- Output 2050 ml Net -2050 ml Lines/Drains/Tubes: Patient Lines/Drains/Airways Status Active Airway None Output by Drain (mL) 04/06/24 0700 - 04/06/24 1859 04/06/24 1900 - 04/07/24 0659 04/07/24 0700 - 04/07/24 1859 04/07/24 1900 - 04/08/24 0659 04/08/24 0700 - 04/08/24 1050 Requested LDAs do not have output data documented. Labs in last 18 hours: CBC WBC ?? Hb ?? Plt ?? Hct ?? ANC ?? INR ??, PTT ??, Anti-Xa ?? MCV ?? BMP Na ?? Cl ?? BUN ?? Glu ?? K ?? Co2 ?? Cr ?? Ca ?? iCa ?? Mg ??, Phos ?? Lactate ?? LFT AST ?? AlkPhos ?? T Prot ?? ALK ?? Bili ?? Alb ?? D.Bili ?? Lab Trends: H/H Results from last 7 days Lab Units 04/04/24 1622 04/02/24 1327 HEMOGLOBIN g/dL 12.0* 13.7 HEMATOCRIT % 38.5* 43.5 INR Cr Results from last 7 days Lab Units 04/04/24 1622 04/02/24 1327 CREATININE mg/dL 0.65* 0.61* Lactate No lab exists for component: LACTTEVEN Radiographic Interpretation: No imagining today. Medications reviewed. Vital signs reviewed. Labs reviewed. Assessment/Plan Assessment and Plan: Medical Problems Problem List * (Principal) Rectal cancer (CMS/HCC) Present on Admission: Rectal cancer (CMS/HCC) Plan: 73M with prior LAR for stage III colon cancer (2019), noncompliant with adjuvant chemotx presentingfrom OSH with large rectal mass c/w recurrent rectal cancer and c/f perforation. Ready for discharge. Pending placement. -GI soft -MM pain control -Pending placement -Dc with rodriguez Dispo: Continue Current Level of Care Sudha Villagran DO Cosigned by Jeremy Cazares MD at 04/08/2024 2:51 PM EDT Associated attestation - Jeremy Cazares MD - 04/08/2024 2:51 PM EDT I saw and evaluated the patient with the resident/fellow. I discussed the case with the resident/fellow and agree with the findings and plan as documented. Mr. Alexander is a 73-year-old male status post colostomy creation for locally recurrent rectal cancer contributing to partial large bowel obstruction. PLAN FOLLOWS: Awaiting placement. * Consults - Roger Rob - 04/07/2024 3:25 PM EDT Patient Profile Pastoral Care Provided For Patient Consult Reasons Emotional support Referral From Nurse Spiritual Assessment Support Systems/ Spiritual Resources Family Spiritual Needs Emotional support Spiritual Issues Chronic pain/ illness Interventions Interventions Provided Supportive Listening; Emotional support Outcomes Patient Outcomes Appreciative of Hand Former Helper Support Follow-Up Last Date of Pastoral Care Contact 04/07/2024 Pastoral Care Comment A nursing-staff referral visit with patient at bedside. Patient shared about his life and health. Patient mentioned that he will be going to a rehab tomorrow. Provided a supportive presence and emapthic listening. * Progress Notes - Kalyani Acuna - 04/07/2024 1:29 PM EDT SW was contacted by the liaison from [facility] Heidi Shaulis. Liaison stated the pt's insurance is requesting a P2P. SW informed the primary team and provided all necessary information. * Progress Notes - Marely Leonard - 04/07/2024 10:48 AM EDT Occupational Therapy Treatment Patient Name: Sae Alexandre Today's Date: 04/07/2024 OT Discharge Recommendations: Acute rehab Equipment Recommended: Defer to facility Subjective I hope I get to go to rehab soon. Pt lives alone and wants to get stronger to be able to go back home. Participants in Care Family/Caregiver Present: No Presentation Oxygen Therapy: None (Room air) Lines and Tubes: Urinary catheter, Intravenous access Pre-Session: Supine, Head of bed elevated, Lines intact Pre-Session Comments: RN gave consent to treatment session. Post-Session: Sitting in chair, Chair alarm, Lines intact, RN notified, Call light in reach Post-Session Comments: All needs addressed Precautions Medical Precautions: Fall precautions Medical Precautions: HOB 30 degrees Objective Pain Pt reported pain in scrotum due to edema, not rated. Delirium Screening P[place]on Agitation Sedation Scale (RASS): Alert and calm Confusion Assessment Method-ICU (CAM-ICU/PCAM-ICU) Feature 3: Altered Level of Consciousness: Negative Cognition Cognition Arousal/Alertness: Appropriate responses to stimuli Mood/Behavior: Alert Orientation Level: Oriented X4 Single Step Commands: Consistently Multi-Step Commands: Consistently Method of Communication: Verbal Safety Judgment: Decreased awareness of need for assistance Awareness of Errors: Assistance required to identify errors made, Assistance required to correct errors made Deficit Awareness: Fully aware of deficits Attention Span: Appears intact Bed Mobility Bed Mobility Exam: Scooting/Bridging Level of Pleasants: Stand-by assist (to EOB) Physical/Nonphysical Assist: Verbal Cues, Nonverbal cues (demo/gestures), Minimal cues Assistive Device: Bed rails Bed Mobility Exam: Supine to Sit Level of Pleasants: Stand-by assist Physical/Nonphysical Assist: Verbal Cues, Nonverbal cues (demo/gestures), HOB elevated Assistive Device: Bed rails Transfers Transfer Exam: Sit to stand Level of Pleasants: Contact guard Physical/Nonphysical Assist: Verbal Cues, Nonverbal cues (demo/gestures), Minimal cues Assistive Device: Walker, rolling Transfer Exam: Stand to Sit Level of Pleasants: Contact guard Physical/Nonphysical Assist: Minimal cues, Verbal Cues, Nonverbal cues (demo/gestures) Assistive Device: Walker, rolling Self-Care Interventions Self Care/Home Management (ADLs) Time Entry: 20 Therapist set up environment to facilitate safe mobility. Pt completed supine to sit EOB with SBA and increased time due to swollen scrotum. Pt stood with CGA and ambulated 60 ft x 3 via RW with 2 standing rest breaks due to fatigue. Pt required seated rest break then stood at the sink to complete grooming tasks with SBA. Pt then transferred to the recliner with SBA and cues to reach back before sitting. Pt was positioned in chair with pillows for comfort. Grooming Grooming Level of Assistance: Setup, SBA Grooming Where Assessed: Standing sinkside Grooming Interventions: Pt stood at the sink for 3 min to wash his face and hands and brush his teeth with SBA for safety. Pt required seated rest break after due to increased fatigue. Lower Extremity Dressing Sock Level of Assistance: Setup, Contact guard LE Dressing Where Assessed: Edge of bed LE Dressing Interventions: Pt was able to don B socks sitting EOB with increased time. Therapeutic Exercise (20 minutes) Therapist created and printed B UE and B LE HEP. Pt was educated on and completed B UE exercises ofpunches, arm raises, butterflies, shoulder shrugs, bicep curls, and scapular retraction x 10 reps. Pt completed B LE exercises of ankle pumps, kicks, and marches x 10 reps to increase strength for functional tasks. Pt required verbal and visual cues for proper technique. Assessment Pt tolerated session well and is progressing toward his goals. Pt demos decreased endurance and fatigues quickly. Pt continues to benefit from skilled OT services to increase strength, endurance, andsafety for ADL tasks. OT Recommendations Discharge Destination: Acute rehab Discharge Equipment: Defer to facility Plan Continue OT plan of care Goals OT GOAL DETAILS Goal Established Date Time Frame Goal Status OT Goal 1: Pt. will complete lower body dressing with SBA + AE as needed 04/02/24 2 weeks OT Goal 2: Pt. will complete sequential grooming tasks with SBA standing sinkside >3 minutes in duration 04/02/24 2 weeks OT Goal 3: Patient will demonstrate accurate recall of bilateral UE Home Exercise Plan to increase functional endurance as would be necessary to increase independence with ADLs over 2 sessions. 04/02/24 2 weeks OT Goal 4: Pt. will demonstrate functional reaching in standing position greater than 25% outside of base of support with SBA for balance 04/02/24 Written by Marely Leonard on 04/07/24 at 1:33 PM. * Care Plan - Ana Jaimes, RN - 04/07/2024 6:33 AM EDT Problem: Adult Inpatient Plan of Care Goal: Plan of Care Review Outcome: Ongoing, Progressing Flowsheets (Taken 04/07/2024 0633) Progress: improving Plan of Care Reviewed With: patient Goal: Patient-Specific Goal (Individualized) Outcome: Ongoing, Progressing Goal: Absence of Hospital-Acquired Illness or Injury Outcome: Ongoing, Progressing Goal: Optimal Comfort and Wellbeing Outcome: Ongoing, Progressing Goal: Readiness for Transition of Care Outcome: Ongoing, Progressing Problem: Infection Goal: Absence of Infection Signs and Symptoms Outcome: Ongoing, Progressing Problem: Balance Impairment (Functional Deficit) Goal: Improved Balance and Postural Control Outcome: Ongoing, Progressing Problem: Mobility Impairment Goal: Optimal Mobility Outcome: Ongoing, Progressing * Progress Notes - Dc Rizzo MD - 04/07/2024 6:30 AM EDT 04/07/24 Sae Alexander HPI 73M with prior LAR for stage III colon cancer (2018), noncompliant with adjuvant chemotx presentingfrom OSH with large rectal mass c/w recurrent rectal cancer and c/f perforation. 03/30: flex sig with bx, colostomy creation Interval: NAEON. Pain controlled. I: PO NR O: UOP 2350, Colostomy 200 (100) Edited by: Dc Rizzo MD at 04/07/20242052 Relevant review of systems was obtained as able and is negative unless stated above in HPI. Vital signs: Vitals: 04/07/242031 BP: (!) 171/66 Pulse: 60 Resp: Temp: SpO2: Physical Exam Gen: no acute distress, lying comfortably in bed Skin: Warm, dry, no rashes or excoriations HEENT: Normocephalic, atraumatic CV: patient appears well perfused with regular rate and rhythm Pulm: normal rate, normal effort Abd: soft, nontender to palpation, ostomy with stool in bag. Scrotal edema improved. Neuro: AAOx4, CN II-XII grossly intact, no obvious focal deficits Psych: cooperative, normal mood and congruent affect Intake/Output Summary (Last 24 hours) at 04/07/20242052 Last data filed at 04/07/2024 1500 Gross per 24 hour Intake -- Output 2000 ml Net -2000 ml Lines/Drains/Tubes: Patient Lines/Drains/Airways Status Active Airway None Output by Drain (mL) 04/05/24 0700 - 04/05/24 1859 04/05/24 1900 - 04/06/24 0659 04/06/24 0700 - 04/06/24 18504/06/24 1900 - 04/07/24 0659 04/07/24 0700 - 04/07/24 1859 04/07/24 190 - 04/07/242052 Requested LDAs do not have output data documented. Labs in last 18 hours: CBC WBC ?? Hb ?? Plt ?? Hct ?? ANC ?? INR ??, PTT ??, Anti-Xa ?? MCV ?? BMP Na ?? Cl ?? BUN ?? Glu ?? K ?? Co2 ?? Cr ?? Ca ?? iCa ?? Mg ??, Phos ?? Lactate ?? LFT AST ?? AlkPhos ?? T Prot ?? ALK ?? Bili ?? Alb ?? D.Bili ?? Lab Trends: H/H Results from last 7 days Lab Units 04/04/24 1622 04/02/24 1327 HEMOGLOBIN g/dL 12.0* 13.7 HEMATOCRIT % 38.5* 43.5 INR Cr Results from last 7 days Lab Units 04/04/24 1622 04/02/24 1327 CREATININE mg/dL 0.65* 0.61* Medications reviewed. Vital signs reviewed. Labs reviewed. Radiography reviewed. Assessment and Plan: Medical Problems and Relevant Plans Hospital Problems POA * (Principal) Rectal cancer (CMS/HCC) Yes Plan: -Continue to monitor scrotal edema, at stable baseline per patient -Coreg 12.5 BID -Abx: Zosyn (), Vanc (03/26), micafungin (03/27-04/04) Fluc (04/04-04/09) -Intermittent rodriguez flush -Pulm hygiene -PT/OT recs: Subacute. Medically ready for discharge. -Urology consulted 03/31, recommendations: Continue rodriguez, follow up outpatient for possible suprapubic catheter placement Diet: GI soft, boost. Pain: PO MMPC VTE ppx: SQH Edited by: Dc Rizzo MD at 04/06/2024 0750 Dc Rizzo MD Cosigned by Jeremy Cazares MD at 04/08/2024 2:51 PM EDT Associated attestation - Jeremy Cazares MD - 04/08/2024 2:51 PM EDT I saw and evaluated the patient with the resident/fellow. I discussed the case with the resident/fellow and agree with the findings and plan as documented. Mr. Alexander is a 73-year-old male status post colostomy creation for locally recurrent rectal cancer contributing to partial large bowel obstruction. PLAN FOLLOWS: Awaiting placement. * Progress Notes - Kalyani Acuna - 04/06/2024 3:11 PM EDT SW contacted the liaison for [facility] to follow up on the pt's referral. Liaison stated thept is still going through the pre-cert process. * Progress Notes - Manjula Angelo RN - 04/06/2024 11:58 AM EDT Images from the original note were not included. Ostomy Progress Note Visit Date: 04/06/2024 Patient Name: Sae Alexander Date of : 1950 Patient had emptied the appliance previously with a bedside RN, he was most concerned with changingthe appliance. Eduction RN teach pouch emptying and ostomy appliance change. Patient and/or caregiver demonstrated pouch emptying. Patient and/or caregiver demonstrated appliance change prior to discharge. All of patient's current ostomy questions answered. Discussed normal stoma characteristics. Discussed when to change the appliance. RN taught patient to apply thin layer of stoma powder and to seal powder with b arrier film to treat redness and irritation of pouching surface. Patient given tip sheet with contact numbers. Patient given picture instructions. Patient taught how to use the flat barrier ring. Patient given a list of recommended products for home. Patient given 3 to 5 pouches, skin prep, powder, and ring/paste until home supplies arrive. Due to stomal edema the stoma measures 2 1/2 and does not fit in the standard 2 3/4 wafer that only cuts to 2 1/4 , placed in one piece flat that cuts to the 2 1/2 . As stoma size decreases he may be able to switch to a 2 piece but has slight dip in abdomen that may need a flexible appliance. Patient would benefit from additional practice in rehab. Wound Ostomy Assessment: Colostomy RUQ (Active) 03/30/24 1518 RUQ Present on Admission: Earliest Known Present: Placed by External Staff?: Inserted by: Hand Hygiene Completed: Colostomy Type: Stoma Size (cm): Earliest Known Removed: Removal Reason : Wound Image 04/06/24 1131 Stomal Appliance 1 piece;Flat Barrier/Pouch;Flat Ring;Changed 04/06/24 1131 Site Assessment Raised;Red;Skinfold/Dip 04/06/24 1131 Peristomal Assessment Intact 04/06/24 1131 Treatment Site care 04/06/24 1131 Output (mL) 100 mL 04/06/24 1131 Gastric Output Appearance Soft 04/06/24 1131 Gastric Output Color Brown 04/06/24 1131 Refeeding Mucous Fistula (mL) 0 mL 04/05/24 0600 HOME RECOMMENDATION Appliance One piece flat pouch 8531 Accessories Cavilon skin prep 3342 Powder 7906 Aryan adhesive remover 7760 Lubricating deodorant 97713 [place] ostomy ring 7201 Manjula Angelo RN 04/06/2024 11:58 AM * Progress Notes - Dc Rizzo MD - 04/06/2024 6:30 AM EDT 04/06/24 Sae Alexander HPI 73M with prior LAR for stage III colon cancer (2019), noncompliant with adjuvant chemotx presentingfrom OSH with large rectal mass c/w recurrent rectal cancer and c/f perforation. 03/30: flex sig with bx, colostomy creation Interval: NAEON. AFVSS other than hypertension SBP 149-172. Pain controlled. I: PO 480 O: UOP 2150, Colostomy 100 Edited by: Dc Rizzo MD at 04/06/2024 0750 Relevant review of systems was obtained as able and is negative unless stated above in HPI. Vital signs: Vitals: 04/06/24 0355 BP: (!) 150/63 Pulse: 70 Resp: 16 Temp: 36.4 ??C (97.5 ??F) SpO2: 96% Physical Exam Gen: no acute distress, lying comfortably in bed Skin: Warm, dry, no rashes or excoriations HEENT: Normocephalic, atraumatic CV: patient appears well perfused with regular rate and rhythm Pulm: normal rate, normal effort Abd: soft, nontender to palpation, ostomy with stool in bag. Scrotal edema improved. Neuro: AAOx4, CN II-XII grossly intact, no obvious focal deficits Psych: cooperative, normal mood and congruent affect Intake/Output Summary (Last 24 hours) at 04/06/2024 0751 Last data filed at 04/06/2024 0500 Gross per 24 hour Intake 480 ml Output 2250 ml Net -1770 ml Lines/Drains/Tubes: Patient Lines/Drains/Airways Status Active Airway None Output by Drain (mL) 04/04/24 07 - 04/04/24 1859 04/04/24 190 - 04/05/24 0659 04/05/24 07 - 04/05/24 1859 04/05/24 1900 - 04/06/24 0659 04/06/24 0700 - 04/06/24 0751 Requested LDAs do not have output data documented. Labs in last 18 hours: CBC WBC ?? Hb ?? Plt ?? Hct ?? ANC ?? INR ??, PTT ??, Anti-Xa ?? MCV ?? BMP Na ?? Cl ?? BUN ?? Glu ?? K ?? Co2 ?? Cr ?? Ca ?? iCa ?? Mg ??, Phos ?? Lactate ?? LFT AST ?? AlkPhos ?? T Prot ?? ALK ?? Bili ?? Alb ?? D.Bili ?? Lab Trends: H/H Results from last 7 days Lab Units 04/04/24 1622 04/02/24 1327 03/31/24 0443 HEMOGLOBIN g/dL 12.0* 13.7 11.9* HEMATOCRIT % 38.5* 43.5 38.7* INR Cr Results from last 7 days Lab Units 04/04/24162104/02/24 1327 03/31/24 0443 CREATININE mg/dL 0.65* 0.61* 0.58* Medications reviewed. Vital signs reviewed. Labs reviewed. Radiography reviewed. Assessment and Plan: Medical Problems and Relevant Plans Hospital Problems POA * (Principal) Rectal cancer (CMS/HCC) Yes Plan: -Continue to monitor scrotal edema, at stable baseline per patient -Coreg 12.5 BID -Abx: Zosyn (03/23-), Vanc (03/26 - ), micafungin (03/27-04/04) Fluc (04/04-04/09) -Intermittent rodriguez flush -Pulm hygiene -PT/OT recs: Subacute. Medically ready for discharge. -Urology consulted 03/31, recommendations: Continue rodriguez, follow up outpatient for possible suprapubic catheter placement Diet: GI soft, boost. Pain: PO MMPC VTE ppx: SQH Edited by: Dc Rizzo MD at 04/06/2024 0750 Dc Rizzo MD Cosigned by Jeremy Cazares MD at 04/06/2024 7:03 PM EDT Associated attestation - Jeremy Cazares MD - 04/06/2024 7:03 PM EDT I saw and evaluated the patient with the resident/fellow. I discussed the case with the resident/fellow and agree with the findings and plan as documented. Mr. Alexander is a 73-year-old male status post colostomy creation for recurrent rectal cancer contributing to large bowel obstruction. PLAN FOLLOWS: Continue postoperative care. * Progress Notes - Kalyani Acuna - 04/05/2024 3:07 PM EDT SW visited the pt at bedside to discuss rehab preferences. Pt stated he has no preference on which facility he goes to. SW was contacted by the liaison from [facility] who made a bed offer. Pt was in agreement to go to that facility once approved. Liaison stated intentions to start the pt's pre-cert. * Progress Notes - Kaity Lamar - 04/05/2024 11:38 AM EDT Physical Therapy Treatment Patient Name: Sae Alexander Today's Date: 04/05/2024 PT Discharge Recommendations: Acute rehab Equipment Recommended: Defer to facility Subjective It feels good to get out of that bed Participants in Care Family/Caregiver Present: No Dentofacial Orthopedics Dentist: Not Applicable Presentation Oxygen Therapy: None (Room air) Lines and Tubes: Urinary catheter, Intravenous access Pre-Session: Supine, Head of bed elevated, Lines intact Pre-Session Comments: RN gave consent to treatment session. Post-Session: Sitting in chair, Chair alarm, Lines intact, RN notified, Call light in reach Post-Session Comments: All needs addressed Precautions Medical Precautions: Fall precautions Medical Precautions: HOB 30 degrees Objective Pain Patient endorsed discomfort in buttock area upon initial sit, otherwise with report of pain during mobility. He was positioned for comfort and pressure relief at conclusion of session. Delirium Screening [place]on Agitation Sedation Scale (RASS): Alert and calm Confusion Assessment Method-ICU (CAM-ICU/PCAM-ICU) Feature 3: Altered Level of Consciousness: Negative Bed Mobility Bed Mobility Exam: Scooting/Bridging Level of Pleasants: Stand-by assist (scooting to eob.) Physical/Nonphysical Assist: Verbal Cues, Nonverbal cues (demo/gestures) Bed Mobility Exam: Supine to Sit Level of Pleasants: Minimum assist (75% patient's effort) Physical/Nonphysical Assist: Verbal Cues, Nonverbal cues (demo/gestures), HOB elevated Transfers Transfer Interventions: Sit to/from stand transfers performed from various surface heights and compliances to assist with transference of skills across environmental differences. Transfer Exam: Sit to stand Level of Pleasants: Contact guard (x4 reps throughout session) Physical/Nonphysical Assist: Verbal Cues, Nonverbal cues (demo/gestures) Assistive Device: Walker, rolling Transfer Exam: Stand to Sit Level of Pleasants: Contact guard Physical/Nonphysical Assist: Minimal cues, Verbal Cues, Nonverbal cues (demo/gestures) Assistive Device: Walker, rolling Balance Postural Appearance Posture: Stooped posture, Forward head Static Sitting Balance Static Sitting-Balance Support: Feet supported Static Sitting-Level of Assistance: Standby assist Dynamic Sitting Balance Dynamic Sitting-Balance Support: Feet supported Dynamic Sitting-Balance: Lateral weight shifts, Anterior/Posterior weight shifts, Reaching for objects Level of Assistance: Contact guard Static Standing Balance Static Standing-Balance Support: Right upper extremity support, Left upper extremity support Static Standing-Level of Assistance: Contact guard Static Standing - Interventions: Patient tolerated 3 minute time intervals, x3, in stance for ADL task performance with adequate ankle strategy. Tendency to distribute weight to left of midline in stance, yet without postural sway or LOB. Dynamic Standing Balance Dynamic Standing-Balance Support: Right upper extremity support, Left upper extremity support Dynamic Standing Level of Assistance: Contact guard Therapeutic Activity (30 minutes) Refer to bed mobility, balance, and transfers sections for intervention details. Rest breaks required for muscle recovery to allow for subsequent mobility tasks. Gait Training (10 minutes) Device: Rolling walker Assistance: Contact guard assist, Additional assist for line management Distance: 60' Gait Analysis: Patient ambulates with reciprocal gait pattern at decreased gait speed with foot flat contact and mild pelvic obliquity. He maintains forward flexed posture with use of RW anteriorly displaced and with limited environmental scanning Gait Training Interventions: Visual feedback for improved body positioning and AD management, external foci to improve environmental scanning, and tactile input to ensure postural control with increased gait distance Assessment Patient demonstrating gradual improvement with functional movement, however he remains unable to ambulate an average household distance secondary to force production and motor endurance deficits. Hisactivity tolerance deficits limit his ability to participate is sustained dynamic movement and put him at increased risks for falls. Patient is highly motivated and an appropriate candidate for acuterehab placement to optimize return to prior level of function and improve quality of life prior to discharge home. PT Recommendations Discharge Destination: Acute rehab Discharge Equipment: Defer to facility Plan Dynamic balance activities, generalized strength training, and gait training. PT Goals PT GOAL DETAILS Goal Established Date Time Frame Goal Status PT Goal 1: Pt will perform supine to sit mobility to the EOB with no more than Aditi for improved functional independence. 04/02/24 2 weeks PT Goal 2: Pt will perform sit to stand transfer with the least restrictive assistive device and CGA. 04/02/24 2 weeks PT Goal 3: Pt will walk at least 100 feet with the least restrictive assistive device and CGA. 04/02/24 2 weeks PT Goal 4: Pt will demonstrate understanding of HEP and discharge recommendations. 04/02/24 2 weeks Written by Kaity Lamar on 04/05/24 at 1:06 PM. * Progress Notes - Kaya Hernández - 04/05/2024 11:35 AM EDT Occupational Therapy Treatment Patient Name: Sae Alexander Today's Date: 04/05/2024 OT Discharge Recommendations: Acute rehab Equipment Recommended: Defer to facility Subjective You wouldn't happen to have an electric shaver? Participants in Care Family/Caregiver Present: No Dentofacial Orthopedics Dentist: Not Applicable Presentation Oxygen Therapy: None (Room air) Lines and Tubes: Urinary catheter, Intravenous access Pre-Session: Supine, Head of bed elevated, Lines intact Pre-Session Comments: Cleared by RN for therapy. Post-Session: Sitting in chair, Chair alarm, Lines intact, RN notified, Call light in reach Post-Session Comments: Pt positioned for comfort with all needs addressed. Precautions Medical Precautions: Fall precautions Medical Precautions: HOB 30 degrees Objective Pain Pt reported 0/10 pain Delirium Screening [place] Agitation Sedation Scale (RASS): Alert and calm Confusion Assessment Method-ICU (CAM-ICU/PCAM-ICU) Feature 3: Altered Level of Consciousness: Negative Cognition Cognition Overall Cognitive Status: Within Functional Limits Arousal/Alertness: Appropriate responses to stimuli Mood/Behavior: Alert Single Step Commands: Consistently Multi-Step Commands: Consistently Method of Communication: Verbal Awareness of Errors: Assistance required to identify errors made, Assistance required to correct errors made Deficit Awareness: Fully aware of deficits Attention Span: Appears intact Bed Mobility Bed Mobility Exam: Scooting/Bridging Level of Pleasants: Stand-by assist (scooting to eob.) Physical/Nonphysical Assist: Verbal Cues, Nonverbal cues (demo/gestures) Bed Mobility Exam: Supine to Sit Level of Pleasants: Minimum assist (75% patient's effort) Physical/Nonphysical Assist: Verbal Cues, Nonverbal cues (demo/gestures), HOB elevated Assistive Device: Bed rails Transfers Transfer Exam: Sit to stand Level of Pleasants: Contact guard Physical/Nonphysical Assist: Verbal Cues Assistive Device: Walker, rolling Transfer Exam: Stand to Sit Level of Pleasants: Contact guard Physical/Nonphysical Assist: Minimal cues, Verbal Cues Assistive Device: Walker, rolling Balance Postural Appearance Posture: Stooped posture, Forward head Static Sitting Balance Static Sitting-Balance Support: Feet supported Static Sitting-Level of Assistance: Standby assist Dynamic Sitting Balance Dynamic Sitting-Balance Support: Feet supported Dynamic Sitting-Balance: Lateral weight shifts, Anterior/Posterior weight shifts, Reaching for objects Level of Assistance: Contact guard Dynamic Sitting - Interventions: donning socks eob. Static Standing Balance Static Standing-Balance Support: Right upper extremity support, Left upper extremity support Static Standing-Level of Assistance: Contact guard Self-Care Interventions Self Care/Home Management (ADLs) Time Entry: 38 Pt able to stand at sink side and complete grooming. Pt able to stand 3 mins to complete oral care,face washing, and combing hair. Grooming Grooming Level of Assistance: SBA, Supervision, Setup Grooming Where Assessed: Standing sinkside Grooming Interventions: pt completed grooming task of oral care, washing his face and combing his hair with SBA after setup while standing at sink side. Pt completed shaving with min(A). Pt able to stand for 4 mins and complete most of shaving but required sitting and assist to complete due to fatigue. Lower Extremity Dressing Sock Level of Assistance: Contact guard, Setup LE Dressing Where Assessed: Edge of bed Standardized Assessments [facility] 6-Click Daily Activities Help from Other: Don/Doff Regular Lower Body Clothings: Little Help From Other: Bathing: Little Help From Other: Toileting: Total Help From Other: Don/Doff Upper Body Clothings: Little Help From Other: Grooming: Little Help From Other: Eating Meals: None [facility] 6 Click - Daily Activities Score: 17 Assessment Pt tolerated very well. Pt with improvement in endurance and strength which resulted in pt requiring decreased assist for ADLs and transfers. Pt required minimal rest breaks during ADL task. Pt continues to require assist with bed mobility, bathing, LB dressing, management of rodriguez and colostomy, and grooming. Pt will continue to benefit from skilled OT intervention as the pt has the potential toachieve all set goals. OT Recommendations Discharge Destination: Acute rehab Discharge Equipment: Defer to facility Plan Continue with current OT POC. Goals listed below. Goals OT GOAL DETAILS Goal Established Date Time Frame Goal Status OT Goal 1: Pt. will complete lower body dressing with SBA + AE as needed 04/02/24 2 weeks OT Goal 2: Pt. will complete sequential grooming tasks with SBA standing sinkside >3 minutes in duration 04/02/24 2 weeks OT Goal 3: Patient will demonstrate accurate recall of bilateral UE Home Exercise Plan to increase functional endurance as would be necessary to increase independence with ADLs over 2 sessions. 04/02/24 2 weeks OT Goal 4: Pt. will demonstrate functional reaching in standing position greater than 25% outside of base of support with SBA for balance 04/02/24 Written by Kaya Hernández OTR/L on 04/05/24 at 12:55 PM. * Progress Notes - Dc Rizzo MD - 04/05/2024 6:30 AM EDT 04/05/24 Sae Alexander HPI 73M with prior LAR for stage III colon cancer (2019), noncompliant with adjuvant chemotx presentingfrom OSH with large rectal mass c/w recurrent rectal cancer and c/f perforation. 03/30: flex sig with bx, colostomy creation Interval: NAEON. AFVSS other than hypertension SBP 155-175. Pain controlled. I: PO 360 O: UOP 2100, Colostomy 300 Edited by: Dc Rizzo MD at 04/05/2024 1125 Relevant review of systems was obtained as able and is negative unless stated above in HPI. Vital signs: Vitals: 04/05/24 0702 BP: (!) 172/76 Pulse: 79 Resp: 16 Temp: 36.4 ??C (97.6 ??F) SpO2: 96% Physical Exam Gen: no acute distress, lying comfortably in bed Skin: Warm, dry, no rashes or excoriations HEENT: Normocephalic, atraumatic CV: patient appears well perfused with regular rate and rhythm Pulm: normal rate, normal effort Abd: soft, nontender to palpation, ostomy with stool in bag. Scrotal edema improving. Neuro: AAOx4, CN II-XII grossly intact, no obvious focal deficits Psych: cooperative, normal mood and congruent affect Intake/Output Summary (Last 24 hours) at 04/05/2024 1127 Last data filed at 04/05/2024 0600 Gross per 24 hour Intake 360 ml Output 2500 ml Net -2140 ml Lines/Drains/Tubes: Patient Lines/Drains/Airways Status Active Airway None Output by Drain (mL) 04/03/24 0700 - 04/03/24 1859 04/03/24 1900 - 04/04/24 0659 04/04/24 0700 - 04/04/24 1859 04/04/24 1900 - 04/05/24 0659 04/05/24 0700 - 04/05/24 1127 Requested LDAs do not have output data documented. Labs in last 18 hours: CBC WBC ?? Hb ?? Plt ?? Hct ?? ANC ?? INR ??, PTT ??, Anti-Xa ?? MCV ?? BMP Na ?? Cl ?? BUN ?? Glu ?? K ?? Co2 ?? Cr ?? Ca ?? iCa ?? Mg ??, Phos ?? Lactate ?? LFT AST ?? AlkPhos ?? T Prot ?? ALK ?? Bili ?? Alb ?? D.Bili ?? Lab Trends: H/H Results from last 7 days Lab Units 04/04/24 1622 04/02/24 1327 03/31/24 0443 HEMOGLOBIN g/dL 12.0* 13.7 11.9* HEMATOCRIT % 38.5* 43.5 38.7* INR Cr Results from last 7 days Lab Units 04/04/24 1622 04/02/24 1327 03/31/24 0443 CREATININE mg/dL 0.65* 0.61* 0.58* Medications reviewed. Vital signs reviewed. Labs reviewed. Radiography reviewed. Assessment and Plan: Medical Problems and Relevant Plans Hospital Problems POA * (Principal) Rectal cancer (CMS/HCC) Yes Plan: -Continue to monitor scrotal edema, at stable baseline per patient -Coreg 12.5 BID -HLIV -Abx: Zosyn (03/23-), Vanc (03/26 - ), micafungin (03/27-04/04) Fluc (04/04-04/09) -Intermittent rodriguez flush -Pulm hygiene -PT/OT recs: Subacute. Medically ready for discharge. -Urology consulted 03/31, recommendations: Continue rodriguez, follow up outpatient for possible suprapubic catheter placement Diet: GI soft, boost. Pain: PO MMPC VTE ppx: SQH Dc Rizzo MD Cosigned by Jeremy Cazares MD at 04/06/2024 7:03 PM EDT Associated attestation - Jeremy Cazares MD - 04/06/2024 7:03 PM EDT I saw and evaluated the patient with the resident/fellow. I discussed the case with the resident/fellow and agree with the findings and plan as documented. Mr. Alexander is a 73-year-old male status post colostomy creation for recurrent rectal cancer contributing to large bowel obstruction. PLAN FOLLOWS: Continue postoperative care. * Procedures - Thalia Mejia RN - 04/04/2024 4:13 PM EDTAssociated Order(s): Insert peripheral IV Insert peripheral IV Performed by: Thalia Mejia RN Authorized by: Jeremy Cazares MD Hand hygiene: Hand hygiene performed prior to insertion Inserted using aseptic techniques: Yes Preparation: Skin prepped with chg Orientation: Right and upper Location: Arm Catheter placed: Peripheral IV Catheter size: 20g/1.88in Line Technique: Ultrasound Guidance Number of attempts: 2 IV flushes: Without difficulty and positive blood return noted and IV luer locked Patient tolerance: Patient tolerated the procedure well, age appropriate response and there were nocomplications IV site covered with: Transparent semipermeable dressing Education provided to: Patient * Progress Notes - Kalyani Acuna - 04/04/2024 3:05 PM EDT Case Management Adult Progress Note Sae Alexander 73 y.o. male CSN: [id number] Admission: 03/23/2024 4:04 AM Primary Problem: Rectal cancer (CMS/HCC) Anticipated Discharge Date: Unknown Has Discharge Plans Changed? No Medicare Second Notice: Housing Circumstances: Not Applicable Housing Circumstances Action Taken: Other N/A Additional Comments POC per primary team pt is medically ready for referral. SW sent referrals within 20 miles of the pt's listed address via [employer]. SW will continue to monitor and assist with any CM needs. Kalyani Acuna * Consults - Shilpi Mai RD - 04/04/2024 1:52 PM EDTAssociated Order(s): IP CONSULT TO NUTRITION SERVICES Nutrition Education Consult Met with pt to provide colostomy nutrition education, per consult: GI soft, low fiber meal planningx 6-8 weeks, followed by a gradual reintroduction of higher fiber foods as tolerated. Discussed food/beverage selection, cooking/preparation techniques, appropriate texture/consistency, thorough chewing of all foods, and fluid/nutrient adequacy. Assisted with modified meal planning and encouraged ad equate protein intake with meals and snacks, and avoidance of carbonated beverages. Pt stated that he lives alone and cooks his own meals. Pt likes [employer] and plans to drink them upon discharge- prefers chocolate flavor. Provided written materials with RD contact information for further questions, should they arise. Shilpi Mai RD * Consults - Lina Weller RD - 04/04/2024 10:23 AM EDT Adult Nutrition Evaluation Note Sae Alexander 73 y.o. male CSN: [id number] Room/Bed 129/129A Nutrition evaluation type: follow-up Reason for evaluation: Hospital course: 73 y o M with PMH of LAR for stage III colon cancer; was noncompliant with systemic chemotherapy and no further follow-up was completed; transferred from OSH with large rectal mass that is consistentwith recurrent rectal cancer, contributing to LAR. Plan noted for OR 03/30 for lap colostomy creation, flex-sig & all other indicated procedures. (04/04): Pt s/p OR 04/01 for flex-sig with Bx & diverting colostomy creation. Past medical/ surgical history: Past Medical History: Diagnosis Date Essential (primary) hypertension HTN (hypertension) Gout Pure hypercholesterolemia, unspecified Elevated cholesterol * Per notes: colon cancer Past Surgical History: Procedure Laterality Date CHOLECYSTECTOMY N/A Cholecystectomy from [facility] * Per notes: LAR Social history: Social History Tobacco Use Smoking status: Former Tobacco comments: Former smoker, [id number] 1.5 ppd Substance Use Topics Alcohol use: Never Drug use: Never Additional comments: 04/04: Visit pending. Vitals and Basic Assessment: BP: (!) 175/68 Temp: 36.6 ??C (97.9 ??F) Oxygen Therapy: None (Room air) O2 Delivery Method: Nasal cannula Noé Coma Scale Score: 15 South Scale Score: 20 - upper abd incision, umbilicus incision Last BM Date: 04/02/24 GI Symptoms: Diarrhea Edema: Generalized Ostomy output: 04/03: 250 mL, 04/02: 225 mL, 04/01: 25 mL Allergies: NKA Medications: acetaminophen, 1,000 mg, Oral, q6h CAROLYN allopurinol, 300 mg, Oral, Daily carvedilol, 12.5 mg, Oral, Once carvedilol, 25 mg, Oral, BID enoxaparin, 40 mg, Subcutaneous, Daily fluconazole, 800 mg, Intravenous, q24h Followed by [START ON 04/05/2024] fluconazole, 400 mg, Intravenous, q24h lisinopril, 20 mg, Oral, Daily methocarbamol, 500 mg, Oral, 4x daily pantoprazole, 40 mg, Oral, Daily sodium chloride, 10 mL, Intravenous, q12h tamsulosin, 0.8 mg, Oral, Daily theophylline ER, 300 mg, Oral, Daily PRN medications: albuterol, benzocaine-menthol, glucose OR dextrose 10 %, glucose OR dextrose 10 %, dextrose 10 % OR glucose, glucagon (human recombinant), hydrALAZINE, labetalol, oxyCODONE, [COMPLETED] Insert peripheral IV AND [COMPLETED] Saline lock IV AND sodium chloride AND sodium chloride Meds were reviewed: Yes Labs: Results from last 7 days Lab Units 04/02/24 1327 03/31/24 0443 03/30/24 0121 WBC 10*3/uL 17.31* 11.68* 11.59* HEMOGLOBIN g/dL 13.7 11.9* 10.3* HEMATOCRIT % 43.5 38.7* 33.2* PLATELETS 10*3/uL 454* 324 245 Results from last 7 days Lab Units 04/02/24 1327 03/31/24 0443 03/30/24 0121 SODIUM mmol/L 136 138 137 POTASSIUM mmol/L 3.7 4.5 3.6* CHLORIDE mmol/L 101 106 106 CO2 mmol/L 20* 22 21* BUN mg/dL 10 6* 6* CREATININE mg/dL 0.61* 0.58* 0.52* EGFR mL/min/1.73m*2 102.7 104.3 107.8 GLUCOSE mg/dL 98 128* 95 CALCIUM mg/dL 8.5* 8.4* 7.8* PHOSPHORUS mg/dL 2.3* 3.1 2.0* Magnesium, Plasma Date Value Ref Range Status 04/02/2024 1.7 (L) 1.9 - 2.4 mg/dL Final -Phos, & Mg low - monitor trends Lab Results Component Value Date ALT 11 03/31/2024 AST 14 03/31/2024 ALKPHOS 235 (H) 03/31/2024 BILITOT 0.5 03/31/2024 Lab Results Component Value Date ALBUMIN 2.4 (L) 03/31/2024 -Albumin is a negative acute phase protein, and therefore not a reliable indicator of malnutrition. No results found for: PREALBUMIN No results found for: CRP No results found for: HGBA1C No results found for: CHOL No results found for: HDL No results found for: LDLCALC No results found for: TRIG Anthropometrics: Height: 160 cm Weight: 54 kg IBW: 52.3 kg %IBW: 103.3 Adjusted Body Weight: N/A BMI: 21.1 Wt evaluation: Normal Weight History: Wt Readings from Last 30 Encounters: 03/31/24 54 kg (119 lb 0.8 oz) Estimated Needs: Current Nutrition Intake: Diet: Consistent CHO, GI Soft Supplements: Boost Plus TID Intake: avg 69% of documented meals since last RD review 5 days ago Nutrition Support: None at this time Diet Experience & Nutrition History: Diet Education: Ostomy diet education Pertinent Home Medications: Bentyl, Prilosec, Zocor, Theophylline Nutrition Focused Physical Exam: Physical exam performed on (date): pending Assessment of Malnutrition: Nutrition Problem: Altered GI function related to colon cancer as evidenced by requiring ostomy creation. Status of Nutrition Diagnosis: New Nutrition Interventions and Recommendations: -Adjusting diet to Ostomy -Continue Boost Plus TID -Recommend MVI with minerals daily -Recommend weekly weight monitoring -Consulting for nutrition education Nutrition Monitoring and Goals: -Monitor tolerance and adequacy of po intake / enteral infusion, wt changes, bowel fxn, labs, skin integrity; and follow up per acuity -Pt will tolerate diet advancement, and consume >/= 75% of most meals & supplements (ongoing) -NFPE on follow up Acuity Level: [address] * Progress Notes - Kirk Gordon MD - 04/04/2024 9:46 AM EDT Subjective No issues. Tolerating diet. Having ostomy function Review of Systems Fourteen point review of systems performed and negative other HPI Objective Physical Exam Gen: no acute distress, lying comfortably in bed Skin: Warm, dry, no rashes or excoriations HEENT: Normocephalic, atraumatic CV: patient appears well perfused with regular rate and rhythm Pulm: normal rate, normal effort Abd: soft, nontender to palpation, ostomy with stool in bag. Scrotal edema improving. Neuro: AAOx4, CN II-XII grossly intact, no obvious focal deficits Psych: cooperative, normal mood and congruent affect Last Recorded Vitals Blood pressure (!) 175/68, pulse 86, temperature 36.6 ??C (97.9 ??F), temperature source Oral, resp. rate 16, height 1.6 m (5' 3 ), weight 54 kg (119 lb 0.8 oz), SpO2 94%. Assessment/Plan Principal Problem: Rectal cancer (CMS/HCC) 73M with prior LAR for stage III colon cancer (2019), noncompliant with adjuvant chemotx presentingfrom OSH with large rectal mass c/w recurrent rectal cancer and c/f perforation. 03/30: flex sig with bx, colostomy creation -Referring to subacute -On DC, will f/u in [place] next Thursday or the following with MR -Will need to be set up with med onc -Will talk to urology about plan for rodriguez on DC -Chocolate boost -Changing myca to fluc -Ostomy teaching -Lasix Cosigned by Jeremy Cazares MD at 04/04/2024 11:44 AM EDT Associated attestation - Jeremy Cazares MD - 04/04/2024 11:44 AM EDT I saw and evaluated the patient with the resident/fellow. I discussed the case with the resident/fellow and agree with the findings and plan as documented. Mr. Mai is a 73-year-old male status post colostomy creation for locally advanced recurrent rectal cancer contributing to large bowel obstruction. PLAN FOLLOWS: Continue postoperative care. * Progress Notes - Dc Rizzo MD - 04/03/2024 11:00 AM EDT 04/03/24 Sae Alexander HPI 73M with prior LAR for stage III colon cancer (2019), noncompliant with adjuvant chemotx presentingfrom OSH with large rectal mass c/w recurrent rectal cancer and c/f perforation. 03/30: flex sig with bx, colostomy creation Interval: AFVSS other than hypertension which is somewhat improved with increased dose of coreg yesterday. No events overnight. He is tolerating current diet. Pain is well controlled. I: PO 480 O: UOP 2650, Colostomy 225 (25) Edited by: Dc Rizzo MD at 04/03/2024 1618 Relevant review of systems was obtained as able and is negative unless stated above in HPI. Vital signs: Vitals: 04/03/24 1512 BP: 138/70 Pulse: 82 Resp: 16 Temp: 36.6 ??C (97.9 ??F) SpO2: 95% Physical Exam Constitutional: General: He is not in acute distress. Appearance: He is ill-appearing (Chronic). HENT: Head: Normocephalic and atraumatic. Eyes: Extraocular Movements: Extraocular movements intact. Cardiovascular: Rate and Rhythm: Normal rate. Pulmonary: Effort: Pulmonary effort is normal. No respiratory distress. Abdominal: General: There is no distension. Palpations: Abdomen is soft. Tenderness: There is abdominal tenderness (appropriate). There is no guarding or rebound. Comments: Incisions C/D/I, RUQ colostomy with stool output in bag, stoma pink and viable without signs of ischemia or necrosis. Genitourinary: Comments: Rodriguez in place. Scrotal swelling Skin: General: Skin is warm and dry. Coloration: Skin is not jaundiced. Neurological: General: No focal deficit present. Mental Status: He is alert. Psychiatric: Mood and Affect: Mood normal. Behavior: Behavior normal. Intake/Output Summary (Last 24 hours) at 04/03/2024 1621 Last data filed at 04/03/2024 1500 Gross per 24 hour Intake 480 ml Output 1400 ml Net -920 ml Lines/Drains/Tubes: Patient Lines/Drains/Airways Status Active Airway None Output by Drain (mL) 04/01/24 0700 - 04/01/24 1859 04/01/24 1900 - 04/02/24 0659 04/02/24 0700 - 04/02/24 1859 04/02/24 1900 - 04/03/24 0659 04/03/24 0700 - 04/03/24 1621 Requested LDAs do not have output data documented. Labs in last 18 hours: CBC WBC ?? Hb ?? Plt ?? Hct ?? ANC ?? INR ??, PTT ??, Anti-Xa ?? MCV ?? BMP Na ?? Cl ?? BUN ?? Glu ?? K ?? Co2 ?? Cr ?? Ca ?? iCa ?? Mg ??, Phos ?? Lactate ?? LFT AST ?? AlkPhos ?? T Prot ?? ALK ?? Bili ?? Alb ?? D.Bili ?? Lab Trends: H/H Results from last 7 days Lab Units 04/02/24 1327 03/31/24 0443 03/30/24 0121 HEMOGLOBIN g/dL 13.7 11.9* 10.3* HEMATOCRIT % 43.5 38.7* 33.2* INR Cr Results from last 7 days Lab Units 04/02/24 1327 03/31/24 0443 03/30/24 0121 CREATININE mg/dL 0.61* 0.58* 0.52* Medications reviewed. Vital signs reviewed. Labs reviewed. Radiography reviewed. Assessment and Plan: Medical Problems and Relevant Plans Hospital Problems POA * (Principal) Rectal cancer (CMS/HCC) Yes Plan: -Monitor scrotal edema -Coreg 12.5 BID -HLIV -Abx: Zosyn (), Vanc (03/26), micafungin (03/27-) -Intermittent rodriguez flush -Pulm hygiene -PT/OT recs: Subacute -Urology consulted 03/31, recommendations: Continue rodriguez Diet: GI soft, boost. Pain: PO MMPC VTE ppx: SQH Edited by: Dc Rizzo MD at 04/03/2024 1621 Dc Rizzo MD Cosigned by Diana Thomason MD at 04/04/2024 10:51 AM EDT Associated attestation - Diana Thomason MD - 04/04/2024 10:51 AM EDT I saw and evaluated the patient with the resident/fellow. I discussed the case with the resident/fellow and agree with the findings and plan as documented. * Progress Notes - Nataliia Butler - 04/02/2024 12:23 PM EDT OCCUPATIONAL THERAPY EVALUATION Note to patient: The Cures Act makes medical notes like these available to patients inthe interest of transparency. However, be advised this is a medical document. It is intended as peer to peer communication. It is written in medical language and may contain abbreviations or verbiagethat are unfamiliar. It may appear blunt or direct. Medical documents are intended to carry relevant information, facts as evident, and the clinical opinion of the practitioner. PATIENT DATA Patient Name Sae Alexander Session Date 04/02/2024 OT Discharge Recommendations Acute rehab Equipment Recommendations Defer to facility Discharge Transportation Recommendations Wheelchair transport van/shuttle HISTORY Sae Alexander is 73 y.o. male admitted 03/23/2024 for work-up of Rectal cancer (CMS/HCC). Hospital Course 1. Rectal cancer (CMS/HCC) Procedures (if applicable) 03/30/2024 Procedure(s): CREATION, COLOSTOMY, OPEN, FLEXIBLE SIGMOIDOSCOPY Past Medical History Patient has a past medical history of Essential (primary) hypertension, Gout, and Pure hypercholesterolemia, unspecified. Past Surgical History Patient has a past surgical history that includes Cholecystectomy (N/A). PRECAUTIONS Weight Bearing Precautions (if applicable) ROM Restrictions (if applicable) Medical Precautions Medical Precautions: Fall precautions Medical Precautions: HOB 30 degrees SUBJECTIVE PARTICIPANTS IN CARE Patient/Caregiver Comments Pt agreeable to OT session Visitors Present None Dentofacial Orthopedics Dentist (if applicable) PRESENTATION Oxygen None (Room air) Telemetry No Lines and Tubes Colostomy RUQ (Active) Urethral Catheter (Active) Peripheral IV 03/23/24 Anterior;Left Forearm (Active) Peripheral IV 03/26/24 Anterior;Right Forearm (Active) Pre-Session Supine, Head of bed elevated, Lines intact RN consenting to OT treatment. Post-Session SCDs applied, Call light in reach, Sitting in chair, RN notified, Lines intact, Chair alarm All needs met upon close of session. Bracing (if applicable) HOME LIVING/SET-UP Lives With Alone Home Type House Home Equipment Cane, Bedside commode Home Layout One level, Stairs to enter without rails Number of Stairs: 1 Bathroom Layout Tub/Shower combo, Grab bars Bathroom: Toilet: Standard Additional Comments PRIOR LEVEL OF FUNCTION Receives help from No assist required prior to admission Level of Mobility Ambulatory- community Mobility Pleasants Independent gait without device History of Falls No ADL Performance ADL Performance: Independent PATIENT/FAMILY GOALS Pt would like to return home when able OBJECTIVE PAIN C/o pain at post-op site DELIRIUM SCREENING [place] Agitation Sedation Scale (RASS): Alert and calm Confusion Assessment Method-ICU (CAM-ICU/PCAM-ICU) Feature 3: Altered Level of Consciousness: Negative COGNITION Overall Cognitive Status Within Functional Limits Arousal/Alertness Appropriate responses to stimuli Mood/Behavior Alert Orientation Oriented X4 Command Following Single Step Commands: Consistently, 100% of the time Multi- Step Commands: With increased time, With repetition Method of Communication Verbal Additional Observations VISION Baseline Vision Current Vision (if different) Current Vision: Intact RIGHT UPPER EXTREMITY EXAMINATION Range of Motion Within Functional Limits Manual Muscle Testing (grossly 3+/5) Light Touch Sensation Intact LEFT UPPER EXTREMITY EXAMINATION Range of Motion Within Functional Limits Manual Muscle Testing (grossly 3+/5) Light Touch Sensation Intact RIGHT LOWER EXTREMITY EXAMINATION Range of Motion Within Functional Limits Manual Muscle Testing Within functional limits Light Touch Sensation Intact LEFT LOWER EXTREMITY EXAMINATION Range of Motion Within Functional Limits Manual Muscle Testing Within functional limits Light Touch Sensation Intact INTERVENTIONS BED MOBILITY Level of [place]as[place] Physical/Non- physical Assist Adaptive Equipment Utilized Rolling/ Turning Moderate assist (50% patient effort) Set-up required, Verbal Cues, Minimal cues, Nonverbal cues (demo/gestures) Scooting/ Bridging Minimum assist (75% patient's effort) (seated scoot at edge of bed) Verbal Cues, Nonverbalcues (demo/gestures), Minimal cues Bed rails Supine to Sit Maximum assist (25% patient's effort) HOB elevated, Additional assist utilized for safety, Nonverbal cues (demo/gestures), Verbal Cues, Moderate cues Bed rails TRANSFERS Sit to Stand Minimum assist (75% patient's effort) Verbal Cues, Nonverbal cues (demo/gestures), Minimal cues, 1 person + 1 person to manage equipment Walker, rolling Stand to sit Contact guard Minimal cues, Nonverbal cues (demo/gestures), Verbal Cues, 1 person + 1 person to manage equipment Walker, rolling Bed to Chair Minimum assist (75% patient's effort) Sidesteps Verbal Cues, Nonverbal cues (demo/gestures), Moderate cues, 1 person + 1 person to manage equipment Walker, rolling BALANCE Postural Appearance Posture: Forward head, Stooped posture, Rounded shoulders Level of Pleasants Balance Support Interventions Static Sit Standby assist Feet unsupported, Left upper extremity support, Right upper extremity support Dynamic Sit Contact guard Right upper extremity support, Left upper extremity support, Feet supported Dynamic Sitting-Balance: Lateral weight shifts, Anterior/Posterior weight shifts Static Stand Minimum assistance Right upper extremity support, Left upper extremity support Dynamic Stand Minimum assistance Left upper extremity support Reaching across midline, Reaching forobjects FUNCTIONAL ENDURANCE Level of Pleasants Distance Adaptive Equipment Utilized Functional Mobility Minimum assistance, Additional assist needed for line management, Chair follow 8 feet+8 feet with standing activities between bouts Rolling walker Chair follow SELF-CARE Treatment Minutes (if applicable) 8 Comments Pt benefited from skilled occupational therapy interventions including: MOD verbal and tactile cues to facilitate sequencing and modified body mechanics during functional tasks Provision of increased time frames to support optimal level of pt participation Task/activity modification with grading as needed to achieve safety while also providing appropriate functional challenge Skilled organization and management of medical lines/tubes to reduce fall risk with mobility aspects of ADLs Environmental set-up to ensure safety and accessibility to all needed areas of treatment space Level of Pleasants Adaptive Equipment Utilized Interventions Grooming Setup, Minimum assistance, Minimal verbal cues Standing sinkside OT challenged pt to travel from bedside to bathroom for standing task of brushing teeth sinkside. Pt requiring unilateral forearm support on sink ledge for balance support during task. Upon exiting bathroom pt with exacerbated fatigue requiring chair transport from bathroom doorway threshold. Bathing UE Bathing Level of Assistance: Minimum assistance LE Bathing Level of Assistance: Maximum assistance Based on clinical judgement and observation of functional performance, pt would require increased assist to complete seated sponge bathing due to decreased functional endurance, pain, impaired balance and limited functional reach as demo'd during this treatment; bathing not directly performed Upper Body Dressing Maximum assistance Edge of bed Pain limiting pt's UE reach and ROM impacting ability to secure/adjust hospital gown on posterior side Lower Body Dressing Sock Level of Assistance: Dependent Bed level Pain limiting pt's ability to participate in LB Dressing STANDARDIZED ASSESSMENTS [facility] 6-Click Daily Activities Help from Other: Don/Doff Regular Lower Body Clothings: A lot Help From Other: Bathing: A lot Help From Other: Toileting: A lot Help From Other: Don/Doff Upper Body Clothings: Little Help From Other: Grooming: Little Help From Other: Eating Meals: Little [place] [id number] Click - Daily Activities Score: 15 ASSESSMENT OT FINDINGS This date pt experienced decreased functional endurance, decreased balance and pain impacting performance of dynamic, multi-component ADL tasks. Rest breaks with slowed pacing required throughout activity to support pt's acclimation to out of bed activity. This resulted in need for prolonged time frames for activity performance and skilled assist for safety. Based on current functional impairments and rehab potential pt presents as an appropriate candidate for continued skilled OT services to reduce caregiver burden and improve level of ADL participation. Impaired ADL performance, Impaired IADL performance, Decreased upper extremity strength, Decreased endurance/ventilation/gas exchange, Impaired functional mobility, Impaired balance Evaluation/ Treatment Tolerance (if identified) Patient limited by fatigue, Patient limited by pain Rehab Potential (if identified) Good, to achieve stated therapy goals Barriers to Discharge (if identified) (pt lives alone) EVAL COMPLEXITY Occupational Profile Expanded review of medical/therapy records and additional review of physical, cognitive, or psychosocial history Performance Deficits Activities of daily living (ADLs), Instrumental activities of daily living (IADLs), Body structures, Routines, Personal, Physical Clinical Decision Making Moderate Overall Eval Complexity Moderate OT RECOMMENDATIONS Discharge Destination Acute rehab Discharge Equipment Defer to facility Discharge Transportation Recommendations Wheelchair transport van/shuttle Recommendations for Referral to Another Service (if applicable) Demonstrates Need for Referral to Another Service: Social work PLAN Planned OT Interventions ADL retraining, IADL retraining, Balance training, Bed mobility Training, Strengthening, Stretching, Transfer training, Functional mobility OT Frequency 2 - 5 times per week OT Duration 2 weeks OT GOALS OT GOAL DETAILS Time Frame OT Goal 1: Pt. will complete lower body dressing with SBA + AE as needed 2 weeks OT Goal 2: Pt. will complete sequential grooming tasks with SBA standing sinkside >3 minutes in duration 2 weeks OT Goal 3: Patient will demonstrate accurate recall of bilateral UE Home Exercise Plan to increase functional endurance as would be necessary to increase independence with ADLs over 2 sessions. 2 weeks OT Goal 4: Pt. will demonstrate functional reaching in standing position greater than 25% outside of base of support with SBA for balance 2 weeks Written by Nataliia Butler on 04/02/24 at 3:07 PM. * Progress Notes - Celeste Doyle - 04/02/2024 12:18 PM EDT Physical Therapy Evaluation Patient Name: Sae Alexander Today's Date: 04/02/2024 PT Discharge Recommendations: Subacute rehab Equipment Recommended: Defer to facility History Sae Alexander is 73 y.o. male admitted 03/23/2024 for work-up of Rectal cancer ([facility]). Problem List Active Hospital Problems Diagnosis Date Noted Rectal cancer (CMS/HCC) 03/23/2024 Procedures 03/30/2024 Procedure(s): CREATION, COLOSTOMY, OPEN, FLEXIBLE SIGMOIDOSCOPY Past Medical History Patient has a past medical history of Essential (primary) hypertension, Gout, and Pure hypercholesterolemia, unspecified. Past Surgical History Patient has a past surgical history that includes Cholecystectomy (N/A). Precautions Medical Precautions: Fall precautions Medical Precautions: HOB 30 degrees Subjective Pt agreeable to PT initial evaluation. Participants in Care Family/Caregiver Present: No Dentofacial Orthopedics Dentist: Not Applicable Presentation Oxygen Therapy: None (Room air) Lines and Tubes: Telemetry, Intravenous access, Urinary catheter (colostomy) Pre-Session: Supine, Head of bed elevated, Lines intact Pre-Session Comments: RN agreeable to session Post-Session: SCDs applied, Call light in reach, Sitting in chair, RN notified, Lines intact, Chairalarm Post-Session Comments: all needs met Home Living/Set-up Lives With: Alone Home Type: House Home Adaptive Equipment: Cane, Bedside commode Home Layout: One level, Stairs to enter without rails Number of Stairs: 1 Bathroom: Tub/Shower: Tub/Shower combo, Grab bars Bathroom: Toilet: Standard Prior Level of Function Receives Help From: No assist required prior to admission Level of Mobility: Ambulatory- community Mobility Pleasants: Independent gait without device History of Falls: No ADL Performance: Independent Patient/Family Goals To return home but agreeable to rehab stay if needed Objective Pain Pt reports 4/10 lower abdominal pain at surgical site (0-10 scale; 0=no pain, 10=worst pain). Pt was provided with diversional activities, rest, pillow support, prescribed exercises were encouraged, and pt was left positioned for comfort. Delirium Screening [place] Agitation Sedation Scale (RASS): Alert and calm Confusion Assessment Method-ICU (CAM-ICU/PCAM-ICU) Feature 3: Altered Level of Consciousness: Negative Cognition Overall Cognitive Status: Within Functional Limits Arousal/Alertness: Appropriate responses to stimuli Mood/Behavior: Alert Orientation Level: Oriented X4 Single Step Commands: Consistently Multi-Step Commands: Consistently, With repetition Method of Communication: Verbal Vision - Basic Assessment Current Vision: Intact Right Upper Extremity Examination RUE Assessment: Within Functional Limits Manual Muscle Testing - RUE: Within functional limits Left Upper Extremity Examination LUE ROM Assessment LUE Assessment: Within Functional Limits Manual Muscle Testing - LUE Manual Muscle Testing - LUE: Within functional limits Right Lower Extremity Examination RLE ROM Assessment RLE Assessment: Within Functional Limits Manual Muscle Testing - RLE Manual Muscle Testing - RLE: Within functional limits Left Lower Extremity Examination LLE Assessment: Within Functional Limits Manual Muscle Testing: Within functional limits (observed with functional mobility) Therapeutic Activity (8 minutes) PT engaged pt in bed mobility, transfer training, standing activities, and ambulation training for improved functional mobility and independence. During supine<>sit, pt required cues for technique and sequencing, including to roll to side and bring feet off the bed before pushing up to sitting. During [id number] transfer from the EOB pt required cues for: set-up for anterior weight shift and positioning prior to stand; set-up for optimal hand and foot placement for safety and efficacy. During transfer to chair, pt required cues for sequencing and proper body positioning prior to sitting. Pt walked into bathroom and stood with upper extremity support for about 3 minutes without taking a seated rest break. Pt then walked back to chair. PT provided verbal cues for management of the rolling walker. Bed Mobility Bed Mobility Exam: Rolling/Turning Level of Pleasants: Moderate assist (50% patient effort) Physical/Nonphysical Assist: Set-up required, Verbal Cues, Minimal cues, Nonverbal cues (demo/gestures) Bed Mobility Exam: Scooting/Bridging Level of Pleasants: Minimum assist (75% patient's effort) (forward at EOB) Physical/Nonphysical Assist: Verbal Cues, Nonverbal cues (demo/gestures), Minimal cues Assistive Device: Bed rails Bed Mobility Exam: Supine to Sit Level of Pleasants: Maximum assist (25% patient's effort) Physical/Nonphysical Assist: HOB elevated, Additional assist utilized for safety, Nonverbal cues (demo/gestures), Verbal Cues, Moderate cues Assistive Device: Bed rails Transfers Transfer Exam: Sit to stand Level of Pleas[place]: Minimum assist (75% patient's effort) (x1 rep from EOB; x1 rep from chair) Physical/Nonphysical Assist: Verbal Cues, Nonverbal cues (demo/gestures), Minimal cues, 1 person + 1 person to manage equipment Assistive Device: Walker, rolling Transfer Exam: Stand to Sit Level of Pleasants: Contact guard Physical/Nonphysical Assist: Minimal cues, Nonverbal cues (demo/gestures), Verbal Cues, 1 person + 1 person to manage equipment Assistive Device: Walker, rolling Transfer Exam: Bed to Chair/Chair to Bed Level of Pleasants: Minimum assist (75% patient's effort) Physical/Nonphysical Assist: Verbal Cues, Nonverbal cues (demo/gestures), Moderate cues, 1 person +1 person to manage equipment Type of Transfer: Sidesteps Assistive Device: Walker, rolling Ambulation Device: Rolling walker Assistance: Minimum assistance, Additional assist needed for line management, Chair follow Distance : 8 feet+8 feet with standing activities between bouts Ambulation Comments: Pt demonstrated forward flexed posture with significantly decreased stride length and decreased gait speed. Pt also with poor foot clearance bilaterally. Pt required assistance and cues for balance and rolling walker management. Balance Postural Appearance Posture: Forward head, Stooped posture, Rounded shoulders Static Sitting Balance Static Sitting-Balance Support: Feet unsupported, Left upper extremity support, Right upper extremity support Static Sitting-Level of Assistance: Standby assist Static Standing Balance Static Standing-Balance Support: Right upper extremity support, Left upper extremity support Static Standing-Level of Assistance: Minimum assistance Dynamic Standing Balance Dynamic Standing-Balance Support: Left upper extremity support Dynamic Standing-Balance: Reaching across midline, Reaching for objects Dynamic Standing Level of Assistance: Minimum assistance Mobility CARE Tool Performance MOBILITY CARE ITEMS CARE SCORE Roll Left and Right 2 Sit to Lying 10 Lying to Sitting on Side of Bed 2 Sit to Stand 3 Chair/[id number] Transfer 3 Toilet Transfer 10 Car Transfer 10 Walk 10 Feet 3 Walk 50 Feet with Two Turns 88 Walk 150 Feet 88 Walking 10 Feet of Uneven Surfaces 10 1 Step (Curb) 10 4 Steps 88 12 Steps 88 Picking up Object 88 Wheel 50 Feet with Two Turns 9 Wheel 150 Feet 9 CARE Tool Performance Score [place] Score Assist Level Description 6 Independent Patient completes the activity by him/herself with no assistance from a helper. 5 Set-up or Clean-up Assistance [place] sets up or cleans up; patient completes activity. [place] assists only prior to or following the activity. 4 Supervision or touching assistance [place] provides verbal cues and/or touching/steadying and/or contact guard assistance as patient completes activity. Assistance may be provided throughout the activity or intermittently. 3 Partial/Moderate Assistance [place] does LESS THAN HALF the effort. [place] lifts, holds or supports trunk or limbs, but provides less than half the effort. 2 Substantial/Maximal Assistance [place] does MORE THAN HALF the effort. [place] lifts or holds trunkor limbs and provides more than half the effort. 1 Dependent [place] does ALL of the effort. Patient does none of the effort to complete the activity. Or, the assistance of 2 or more helpers is required for the patient to complete the activity. Activity Not Attempted Values 7 Patient refused. 9 Not applicable - Not attempted and the patient did not perform this activity prior to the currentillness, exacerbation, or injury. 10 Not attempted due to environmental limitations (e.g., lack of equipment, weather constraints) 88 Not attempted due to medical condition or safety concerns Standardized Assessments [facility] 6-Clicks Mobility Assessment Difficulty patient has turning over in bed (including adjusting bedclothes, sheets, and blankets)?:A lot Difficulty patient has sitting down on and standing up from a chair with arms (wheelchair, bedside commode, etc.)?: A little Difficulty patient has moving from lying on back to sitting on the side of the bed?: A lot How much help does the patient need moving to and from a bed to a chair (including a wheelchair)?: A little How much help does the patient need to walk in hospital room?: A little How much help does the patient need climbing 3-5 steps with a railing?: A lot [facility] 6-Clicks Mobility Assessment Total : 15 Assessment Pt is a 73 y.o. male who presents for management of rectal cancer and is now s/p flex sig with bx, colostomy creation 03/30/24. Pt limited by pain and fatigue today as well as by impaired balance. Pt with decreased gait speed and stride length which is correlated with an increased risk of falls. Pt presents with significant functional decline from baseline and is not safe to return home at this time due to fall risk, increased caregiver burden, and increased risk for hospital re-admission. Pt demonstrates medical need for daily assessment by a physician and will tolerate 3 hours of daily therapy. Patient therefore requires discharge to acute rehab facility for additional strengthening, functional mobility training, and functional endurance upon hospital discharge. Pt is pleasant, cooperative, well-motivated, and would benefit from continued skilled PT during remainder of hospital stay to progress toward maximal independence with functional mobility and improved activity tolerance. Impairments: Decreased endurance, ventilation, and/or gas exchange, Impaired balance, Pain, Impaired gait dynamics/performance, Impaired functional mobility/transfers, Impaired postural/trunk control Activity Limitations: Inability to ambulate independently, Inability to ambulate community distances, Inability to complete ADLs independently, Inability to transfer independently, Inability to ambulate household distances Participation Restrictions: Self-care, Home management, Community leisure Activity Tolerance: Tolerates 10 - 20 min activity with multiple rests, Standing Evaluation/Treatment Tolerance: Patient limited by fatigue, Patient limited by pain Diagnosis: Rectal Cancer Rehab Potential: Good, to achieve stated therapy goals Eval Complexity History Profile: 3 or more personal factors and/or comorbidities Clinical Presentation: Evolving clinical presentation with changing characteristics Clinical Decision Making: Moderate complexity PT Recommendations Discharge Destination: Subacute rehab Discharge Equipment: Defer to facility Plan Planned PT Interventions Balance training, Bed mobility training, Gait training, Strengthening, Stretching, Postural re-education, Neuromuscular re-education, Motor coordination training, Transfer training, Functional Mobility PT Frequency 2 - 5 times per week PT Duration 2 weeks Goals PT GOAL DETAILS Time Frame PT Goal 1: Pt will perform supine to sit mobility to the EOB with no more than Aditi for improved functional independence. 2 weeks PT Goal 2: Pt will perform sit to stand transfer with the least restrictive assistive device and CGA. 2 weeks PT Goal 3: Pt will walk at least 100 feet with the least restrictive assistive device and CGA. 2 weeks PT Goal 4: Pt will demonstrate understanding of HEP and discharge recommendations. 2 weeks Written by Celeste Doyle on 04/02/24 at 12:31 PM. * Progress Notes - Dc Rizzo MD - 04/02/2024 8:00 AM EDT 04/02/24 Sae Alexander HPI 73M with prior LAR for stage III colon cancer (2019), noncompliant with adjuvant chemotx presentingfrom OSH with large rectal mass c/w recurrent rectal cancer and c/f perforation. 03/30: flex sig with bx, colostomy creation Interval: AFVSS other than hypertension which is somewhat improved with addition of coreg 6.25 yesterday. No events overnight. He is tolerating current diet. Pain is well controlled. Labs significantfor leukocytosis of 17 from 11 however CBC is roche-elevated suggesting hemoconcentration in the setting of diuresis yesterday and today. I: NR O: UOP 4275, Colostomy 25 (20) Edited by: Dc Rizzo MD at 04/02/2024 1706 Relevant review of systems was obtained as able and is negative unless stated above in HPI. Vital signs: Vitals: 04/02/24 1555 BP: 112/57 Pulse: (!) 111 Resp: Temp: 36.3 ??C (97.4 ??F) SpO2: 95% Physical Exam Constitutional: General: He is not in acute distress. Appearance: He is ill-appearing (Chronic). HENT: Head: Normocephalic and atraumatic. Eyes: Extraocular Movements: Extraocular movements intact. Cardiovascular: Rate and Rhythm: Normal rate. Bilateral lower extremity edema, 1+, improved from day prior. Pulmonary: Effort: Pulmonary effort is normal. No respiratory distress. Abdominal: General: There is no distension. Palpations: Abdomen is soft. Tenderness: There is abdominal tenderness (appropriate). There is no guarding or rebound. Comments: Incisions C/D/I, RUQ colostomy with minimal output in bag, stoma pink and viable without signs of ischemia or necrosis. Genitourinary: Comments: Rodriguez in place. Scrotal swelling Skin: General: Skin is warm and dry. Coloration: Skin is not jaundiced. Neurological: General: No focal deficit present. Mental Status: He is alert. Psychiatric: Mood and Affect: Mood normal. Behavior: Behavior normal. Intake/Output Summary (Last 24 hours) at 04/02/2024 1707 Last data filed at 04/02/2024 1500 Gross per 24 hour Intake 480 ml Output 3300 ml Net -2820 ml Lines/Drains/Tubes: Patient Lines/Drains/Airways Status Active Airway None Output by Drain (mL) 03/31/24 0700 - 03/31/24 18503/31/24 1900 - 04/01/24 0659 04/01/24 0700 - 04/01/24 1859 04/01/24 1900 - 04/02/24 0659 04/02/24 07 - 04/02/24 170 Requested LDAs do not have output data documented. Labs in last 18 hours: CBC WBC 17.31 (H) Hb 13.7 Plt 454 (H) Hct 43.5 ANC ?? INR ??, PTT ??, Anti-Xa ?? MCV 75 (L) BMP Na 136 Cl 101 BUN 10 Glu 98 K 3.7 Co2 20 (L) Cr 0.61 (L) Ca 8.5 (L) iCa ?? Mg 1.7 (L), Phos 2.3 (L) Lactate ?? LFT AST ?? AlkPhos ?? T Prot ?? ALK ?? Bili ?? Alb ?? D.Bili ?? Lab Trends: H/H Results from last 7 days Lab Units 04/02/24 1327 03/31/24 0443 03/30/24 0121 HEMOGLOBIN g/dL 13.7 11.9* 10.3* HEMATOCRIT % 43.5 38.7* 33.2* INR Cr Results from last 7 days Lab Units 04/02/24 1327 03/31/24 0443 03/30/24 0121 CREATININE mg/dL 0.61* 0.58* 0.52* Medications reviewed. Vital signs reviewed. Labs reviewed. Radiography reviewed. Assessment and Plan: Medical Problems and Relevant Plans Hospital Problems POA * (Principal) Rectal cancer (CMS/HCC) Yes Plan: -Coreg 6.25 BID added 04/01, increased to 12.5 04/02 -HLIV -20 mg IV lasix 04/02 -Abx: Zosyn (03/23-), Vanc (03/26 - ), micafungin (03/27-) -Intermittent rodriguez flush -Pulm hygiene -PT/OT -Urology consulted 03/31, recommendations: Continue rodriguez Diet: GI soft, boost. Pain: PO MMPC VTE ppx: SQH Edited by: Dc Rizzo MD at 04/02/2024 1706 Dc Rizzo MD Cosigned by Diana Thomason MD at 04/04/2024 10:46 AM EDT Associated attestation - Diana Thomason MD - 04/04/2024 10:46 AM EDT I saw and evaluated the patient with the resident/fellow. I discussed the case with the resident/fellow and agree with the findings and plan as documented. * Progress Notes - Lalit Newton MD - 04/01/2024 4:37 PM EDT Images from the original note were not included. [facility] Department of Surgery Division of Colon & Rectal Surgery Surgery Progress Note 04/01/24 Sae Alexander Full Code Subjective Subjective: HPI 73M with prior LAR for stage III colon cancer (2019), noncompliant with adjuvant chemotx presentingfrom OSH with large rectal mass c/w recurrent rectal cancer and c/f perforation. 03/30: flex sig with bx, colostomy creation Interval: No events overnight. He is tolerating current diet. Urology was consulted yesterday and did not recommend rodriguez exchange at this time. Pain is well controlled. I: NR O: UOP 3300 Stool 20 Review of Systems: Relevant review of systems was obtained as able and is negative unless stated above in HPI. Objective Objective: Vital signs: Vitals: 04/01/24 1258 BP: (!) 175/85 Pulse: Resp: Temp: 36.3 ??C (97.4 ??F) SpO2: Physical Exam: Physical Exam Vitals reviewed. Constitutional: General: He is not in acute distress. Appearance: He is ill-appearing (Chronic). HENT: Head: Normocephalic and atraumatic. Eyes: Extraocular Movements: Extraocular movements intact. Cardiovascular: Rate and Rhythm: Normal rate. Pulmonary: Effort: Pulmonary effort is normal. No respiratory distress. Abdominal: General: There is no distension. Palpations: Abdomen is soft. Tenderness: There is abdominal tenderness (appropriate). There is no guarding or rebound. Comments: Incisions C/D/I, RUQ colostomy with minimal output in bag, stoma pink and viable without signs of ischemia or necrosis. Genitourinary: Comments: Rodriguez in place. Cloudy output surrounding exit site. Skin: General: Skin is warm and dry. Coloration: Skin is not jaundiced. Neurological: General: No focal deficit present. Mental Status: He is alert. Psychiatric: Mood and Affect: Mood normal. Behavior: Behavior normal. Intake/Output Summary (Last 24 hours) at 04/01/2024 1637 Last data filed at 04/01/2024 1200 Gross per 24 hour Intake -- Output 6470 ml Net -6470 ml Lines/Drains/Tubes: Patient Lines/Drains/Airways Status Active Airway None Output by Drain (mL) 03/30/24 0700 - 03/30/24 1859 03/30/24 1900 - 03/31/24 0659 03/31/24 0700 - 03/31/24 1859 03/31/24 1900 - 04/01/24 0659 04/01/24 0700 - 04/01/24 1637 Requested LDAs do not have output data documented. Labs in last 18 hours: CBC WBC ?? Hb ?? Plt ?? Hct ?? ANC ?? INR ??, PTT ??, Anti-Xa ?? MCV ?? BMP Na ?? Cl ?? BUN ?? Glu ?? K ?? Co2 ?? Cr ?? Ca ?? iCa ?? Mg ??, Phos ?? Lactate ?? LFT AST ?? AlkPhos ?? T Prot ?? ALK ?? Bili ?? Alb ?? D.Bili ?? Lab Trends: H/H Results from last 7 days Lab Units 03/31/24 0443 03/30/24 0121 03/28/24 0618 HEMOGLOBIN g/dL 11.9* 10.3* 8.4* HEMATOCRIT % 38.7* 33.2* 28.0* INR Cr Results from last 7 days Lab Units 03/31/24 0443 03/30/24 0121 03/28/24 0618 CREATININE mg/dL 0.58* 0.52* 0.57* Lactate No lab exists for component: LACTTEVEN Radiographic Interpretation: No imagining today. Medications reviewed. Vital signs reviewed. Labs reviewed. Assessment/Plan Assessment and Plan: Medical Problems Problem List * (Principal) Rectal cancer (CMS/HCC) Present on Admission: Rectal cancer (CMS/HCC) Patient is a 73M with prior LAR for stage III colon cancer (2019), noncompliant with adjuvant chemotx presenting from OSH with large rectal mass c/w recurrent rectal cancer and c/f perforation. 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 Urology recommending continuing rodriguez for now and considering SPT in future. Plan Today: - 2o mg IV lasix - Add coreg 6.25 mg BID - HLIV -Abx: Zosyn (), Vanc (03/26), micafungin (03/27-) -Intermittent rodriguez flush -Pulm hygiene Diet: GI soft, boost. Pain: PO MMPC VTE ppx: SQH Dispo: Continue Current Level of Care Lalit Newton MD Cosigned by Jeremy Cazares MD at 04/04/2024 11:43 AM EDT Associated attestation - Jeremy Cazares MD - 04/04/2024 11:43 AM EDT I saw and evaluated the patient with the resident/fellow. I discussed the case with the resident/fellow and agree with the findings and plan as documented. Mr. Mai is a 73-year-old male status post colostomy creation for locally advanced recurrent rectal cancer contributing to large bowel obstruction. PLAN FOLLOWS: Continue postoperative care. * Progress Notes - Manjula Angelo RN - 04/01/2024 10:16 AM EDT Ostomy Progress Note Visit Date: 04/01/2024 Patient Name: Sae Alexander Date of : 1950 Patient is hesitant and was concerned about touching the stoma. He helped with most steps to changethe appliance but will need additional education. Stoma measured 2 1/2 , smaller at the base. Used a one piece pouch at this time to allow for 2 1/2 . Eduction Patient and/or caregiver demonstrated appliance change prior to discharge. All of patient's current ostomy questions answered. Discussed when to change the appliance. Patient taught how to use the flat barrier ring. Wound Ostomy Assessment: Colostomy RUQ (Active) 03/30/24 1518 RUQ Present on Admission: Earliest Known Present: Placed by External Staff?: Inserted by: Hand Hygiene Completed: Colostomy Type: Stoma Size (cm): Earliest Known Removed: Removal Reason : Stomal Appliance 1 piece;Flat Barrier/Pouch;Flat Ring;Changed 04/01/24 1000 Site Assessment Raised;Papillion;Edema 04/01/24 1000 Peristomal Assessment Intact 04/01/24 1000 Treatment Site care 04/01/24 1000 Output (mL) 20 mL 04/01/24 0300 Gastric Output Appearance Watery 04/01/24 1000 Gastric Output Color Brown 04/01/24 1000 Manjula nAgelo RN 04/01/2024 10:16 AM * Progress Notes - Manjula Angelo RN - 03/31/2024 4:01 PM EDT Ostomy Progress Note Visit Date: 03/31/2024 Patient Name: Sae Alexander Date of : 1950 Initiated ostomy education with patient. Eduction Ostomy Discharge Teaching Packet and/or Ostomy DVD given to patient and/or caregiver. Ostomy Discharge Teaching and/or Ostomy DVD reviewed with patient and/or caregiver. All of patient's current ostomy questions answered. Discussed normal stoma characteristics. Discussed GI output following surgery. Discussed when to change the appliance. Patient provided return demonstration of how to snap together the appliance and open and close the pouch. Patient given written information about hernia binder. Will follow up with patient for hands on instruction and home appliance recommendations. Stoma edematous, when pouch changed if unable to replace the standard 2 piece the one piece flat cuts 1/4 larger and a 4 appliance is available in materials. Wound Ostomy Assessment: Colostomy RUQ (Active) 03/30/24 1518 RUQ Present on Admission: Earliest Known Present: Placed by External Staff?: Inserted by: Hand Hygiene Completed: Colostomy Type: Stoma Size (cm): Earliest Known Removed: Removal Reason : Stomal Appliance 2 piece;Flat Barrier/Pouch 03/31/24 1600 Site Assessment Edema;Raised;Papillion 03/31/24 1600 Manjula Angelo RN 03/31/2024 4:01 PM * Progress Notes - Isela Jane RN - 03/31/2024 12:46 PM EDT Case Management Adult Progress Note Sae Alexander 73 y.o. male CSN: [id number] Admission: 03/23/2024 4:04 AM Primary Problem: Rectal cancer (CMS/HCC) Anticipated Discharge Date: unknown Has Discharge Plans Changed? No Medicare Second Notice: Housing Circumstances: Not Applicable Housing Circumstances Action Taken: Other Additional Comments Spoke to MD this am, pt not medically ready for d/c at this time. Do not anticipate patient to be ready for discharge within 72 hrs. Pt has a new ostomy, will need to see pt about supplies and hh services when appropriate. Awaiting pall/hospice cons. Will continue to follow and assist with d/c needs as they arise. Isela Jane RN * Consults - Martin Howe MD - 03/31/2024 8:32 AM EDTAssociated Order(s): Inpatient consult to Urology Inpatient consult to Urology Consult performed by: Martin Howe MD Consult ordered by: Jeremy Cazares MD [facility] Urology Consult Note 03/31/24 Service Requesting Consultation: colorectal surgery CC: rectourethral fistula, stool around Rodriguez HPI: Sae Alexander is a 73 y.o. male with HTN, [...] creation on 03/[address] Cazares. He continues to have feculent output around his Rodriguez. Urology contacted for Rodriguez exchange. Patient denies previous problems or surgeries. He has had difficult initialing his stream in thepast and has been prescribed Flomax by his PCP. He has not seen a urologist before. Patient states his current Rodriguez is not bothersome to him. Past Medical History: Past Medical History: Diagnosis Date Essential (primary) hypertension HTN (hypertension) Gout Pure hypercholesterolemia, unspecified Elevated cholesterol Past Surgical History:: Past Surgical History: Procedure Laterality Date CHOLECYSTECTOMY N/A Cholecystectomy from [facility] Family History: Family History Problem Relation Name Age of Onset Lung cancer Father FH: lung cancer Social History: Social History Tobacco Use Smoking status: Former Tobacco comments: Former smoker, [id number] 1.5 ppd Substance Use Topics Alcohol use: Never Drug use: Never PHYSICAL EXAM: Temp: [36.3 ??C (97.4 ??F)-36.8 ??C (98.3 ??F)] 36.4 ??C (97.5 ??F) Heart Rate: [65-100] 68 Resp: [11-25] 18 BP: (167-199)/(71-96) 195/74 SpO2: [91 %-98 %] 95 % I/O last 3 completed shifts: In: 5958.7 (110.3 mL/kg) [P.O.:580; I.V.:3210 (59.4 mL/kg); IV Piggyback:2168.8] Out: 4420 (81.9 mL/kg) [Urine:4350 (2.2 mL/kg/hr); Stool:50; Blood:20] Weight: 54 kg No intake/output data recorded. GEN: NAD HEENT: NCAT, EOMI RESP: Equal bilateral chest rise, normal work of breathing CV: Appears well perfused ABD: Non distended. RLQ colostomy in place with thin liquid stool : Rodriguez in place with clear, yellow urine. Stool leaking around Rodriguez from urethra EXT: No gross deformities MSK: Normal ROM in BL UE NEURO: No focal deficits, AOx3 PSYCH: Appropriate mood and affect LABS: Results from last 7 days Lab Units 03/31/24 0443 WBC 10*3/uL 11.68* HEMOGLOBIN g/dL 11.9* HEMATOCRIT % 38.7* PLATELETS 10*3/uL 324 Results from last 7 days Lab Units 03/31/24 0443 SODIUM mmol/L 138 POTASSIUM mmol/L 4.5 CHLORIDE mmol/L 106 CO2 mmol/L 22 BUN mg/dL 6* CREATININE mg/dL 0.58* EGFR mL/min/1.73m*2 104.3 GLUCOSE mg/dL 128* CALCIUM mg/dL 8.4* Imaging: CT Abd Pelvis with IV Contrast 03/27: Thickening of rectum with protrusion into prostate and membranous urethra. Hospital Problem List: Principal Problem: Rectal cancer (CMS/HCC) Assessment: Sae Alexander is a 73 y.o. male with HTN, [...] creation on 03/[address] Cazares. He continues to have feculent output around hisFoley. Recommend continuing Rodriguez catheter for now as it appears to be in bladder and draining clear yellow urine. Can consider suprapubic tube placement in the future as a fdc management option for bladder decompression. Plan: - Continue Rodriguez catheter for now - Can consider SPT placement in the future as oil heaterman means of decompressing bladder - Urology available for any questions or concerns Martin Howe MD PGY-1 Urology Cosigned by Martin Hernandez MD at 04/01/2024 5:03 PM EDT Associated attestation - Martin Hernandez MD - 04/01/2024 5:03 PM EDT I saw and evaluated the patient. I discussed the case with the resident/fellow and agree with the findings and plan as documented. * Progress Notes - Lolis Caruso Booker - 03/31/2024 7:56 AM EDT Images from the original note were not included. [facility] Department of Surgery Division of Colon & Rectal Surgery Surgery Progress Note 03/31/24 Sae Alexander Full Code Subjective Subjective: HPI 73M with prior LAR for stage III colon cancer (2019), noncompliant with adjuvant chemotx presentingfrom OSH with large rectal mass c/w recurrent rectal cancer. 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 03/30: flex sig with bx, colostomy creation Interval: Patient hypertensive to 196/87 overnight and into the morning requiring multiple doses oflabetalol. Patient denies N/V, significant abdominal pain. He endorses appetite, will transition toFLD and see how patient tolerates. Rodriguez cath in place with good UOP. I: PO 460 IV 2556 IVPB 1548 O: UOP 2950 Stool 50 Blood 20 Review of Systems: Relevant review of systems was obtained as able and is negative unless stated above in HPI. Objective Objective: Vital signs: Vitals: 03/31/24 0450 BP: (!) 178/86 Pulse: 65 Resp: Temp: SpO2: 97% Physical Exam: Physical Exam Vitals reviewed. Constitutional: General: He is not in acute distress. Appearance: He is not toxic-appearing. HENT: Head: Normocephalic and atraumatic. Mouth/Throat: Mouth: Mucous membranes are moist. Pharynx: Oropharynx is clear. Eyes: Extraocular Movements: Extraocular movements intact. Cardiovascular: Rate and Rhythm: Normal rate and regular rhythm. Pulmonary: Effort: Pulmonary effort is normal. No respiratory distress. Abdominal: General: Abdomen is flat. There is no distension. Palpations: Abdomen is soft. Tenderness: There is abdominal tenderness (mild diffuse). There is no guarding or rebound. Comments: Appropriately TTP, incisions C/D/I, RUQ colostomy with minimal output in bag, stoma pink and viable without signs of ischemia or necrosis. Genitourinary: Comments: Rodriguez in place. No stool visible at urethra or in bag. Skin: General: Skin is warm and dry. Neurological: General: No focal deficit present. Mental Status: He is alert and oriented to person, place, and time. Psychiatric: Mood and Affect: Mood normal. Behavior: Behavior normal. Intake/Output Summary (Last 24 hours) at 03/31/2024 0757 Last data filed at 03/31/2024 0521 Gross per 24 hour Intake 4565.41 ml Output 3020 ml Net 1545.41 ml Lines/Drains/Tubes: Drain Duration Urethral Catheter 8 days Colostomy RUQ <1 day Wound Duration Wound 03/30/24 Incision Abdomen Lower;Mid;Upper <1 day Wound 03/30/24 Incision Umbilicus Anterior <1 day Peripheral intravenous line Duration Peripheral IV 03/23/24 Anterior;Left Forearm 8 days Peripheral IV 03/26/24 Anterior;Right Forearm 4 days Peripheral IV 03/30/24 Right Wrist Labs in last 18 hours: CBC WBC 11.68 (H) Hb 11.9 (L) Plt 324 Hct 38.7 (L) MCV 76 (L) BMP Na 138 Cl 106 BUN 6 (L) Glu 128 (H) K 4.5 Co2 22 Cr 0.58 (L) Ca 8.4 (L) iCa ?? Mg 1.9, Phos 3.1 Lactate ?? LFT AST 14 AlkPhos 235 (H) T Prot 5.5 (L) ALK 11 Bili 0.5 Alb ?? Lab Trends: H/H Results from last 7 days Lab Units 03/31/2444203/30/24 01203/28/24 0618 HEMOGLOBIN g/dL 11.9* 10.3* 8.4* HEMATOCRIT % 38.7* 33.2* 28.0* Cr Results from last 7 days Lab Units 03/31/2444203/30/24 0121 03/28/24 0618 CREATININE mg/dL 0.58* 0.52* 0.57* Radiographic Interpretation: No imagining today. Medications reviewed. Vital signs reviewed. Labs reviewed. Assessment/Plan Assessment and Plan: Medical Problems Problem List * (Principal) Rectal cancer (CMS/HCC) Present on Admission: Rectal cancer (CMS/HCC) Plan Today: 73M with prior LAR for stage III colon cancer (2019), noncompliant with adjuvant chemotx presentingfrom OSH with large rectal mass c/w recurrent rectal cancer and c/f perforation. 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 Will consult urology for recommendations moving forward. - Urology consult today - Palliative consult today -discontinue mIVF -Abx: Zosyn (03/23 - ), Vanc (03/26 - ), micafungin (03/27-) -Intermittent rodriguez flush -f/u Blood cultures -lasix tomorrow -Resp: albuterol inhaler ordered, on 2L NC - monitor BP closely, give labetalol as ordered Diet: FLD, boost. Pain: MMPC VTE ppx: SQH Dispo: Continue Current Level of Care Lolis Caruso, MS3 Cosigned by Jeremy Cazares MD at 03/31/2024 11:29 AM EDT Associated attestation - Jeremy Cazares MD - 03/31/2024 11:29 AM EDT I saw and evaluated the patient with the medical/HEEL PRICKER/PA student. I discussed the case with the medical/HEEL PRICKER/PA student and agree with the findings and plan as documented. I personally performed the Examand Medical Decision Making. * Clinician Note - Lalit Newton MD - 03/30/2024 6:54 PM EDT Post-Operative Check Note Sae Alexander is a 73 y.o. male POD#0 from: Procedure(s) (LRB): CREATION, COLOSTOMY, OPEN, FLEXIBLE SIGMOIDOSCOPY (N/A) SUBJECTIVE: Patient reports doing well at this time. Pain control is adequate with current regimen. He denies any nausea or vomiting. No new concerns at this time. OBJECTIVE: Blood pressure (!) 173/71, pulse 70, temperature 36.3 ??C (97.4 ??F), temperature source Oral, resp. rate 18, height 1.6 m (5' 2.99 ), weight 54 kg (119 lb 0.8 oz), SpO2 96%. WBC 11.59 (H) Hgb 10.3 (L) PLT 245 HCT 33.2 (L) INR ?? PTT ?? antiXa ?? Na 137 Cl 106 BUN 6 (L) Gluc 95 K 3.6 (L) CO2 21 (L) Creat 0.52 (L) Ca 7.8 (L) iCa ?? Mg 1.6 (L) Phos 2.0 (L) pH ?? pCO2 ?? pO2 ?? SPO2 ?? FIO2 ?? HCO3 ?? BE ?? Lactate ?? Physical Exam: GEN: NAD, laying comfortably in bed Pulm: equal chest rise bilaterally, breathing comfortably on 2L NC Abd: soft, appropriately tender to palpation, non-distended; surgical dressing in place, clean and dry. Ostomy is well perfused and there is only bowel sweat in ostomy bag. ASSESSMENT/PLAN: POD 0- Currently stable on the floor and recovering well post-operatively. Diet: CLD Pain Management: IV ZIPPER MEASURER VTE PPx: heparin (porcine) Plan discussed with RN Home medications to restart: None Please call with any questions or concerns. Lalit Newton MD General Surgery, PGY-1 Pager: [phone] * Anesthesia PACU Signout - Adrián Alfaro DO - 03/30/2024 4:27 PM EDT Patient: Sae Alexander Anesthesia Type: general Vitals Value Taken Time BP 179/86 03/30/24 1620 Temp 36.6 ??C (97.9 ??F) 03/30/24 1540 Pulse 72 03/30/24 1626 Resp 17 03/30/24 1626 SpO2 97 % 03/30/24 1626 Vitals shown include unfiled device data. Anesthesia PACU Signout Patient location during evaluation: PACU Patient participation: complete - patient participated Level of consciousness: baseline and awake Pain management: adequate (pain score 0-3) Airway patency: natural airway Hydration status: acceptable PONV: none Cardiovascular status: acceptable and hemodynamically stable (systolic bp was 180s in preop) Respiratory status: acceptable, spontaneous ventilation, unassisted, nonlabored ventilation and room air Cosigned by Shilpi Lira MD at 03/31/2024 6:24 AM EDT Associated attestation - Shilpi Lira MD - 03/31/2024 6:24 AM EDT I saw and evaluated the patient with the resident/fellow. I discussed the case with the resident/fellow and agree with the findings and plan as documented. * Op Note - Jeremy Cazares MD - 03/30/2024 2:17 PM EDT [facility] Colon and Rectal Surgery Operative Note JS Sage GUTIERREZ FACS FASCRS Patient: Sae Alexander : 1950 Date of Procedure: 03/30/24 Admit Date: 03/23/2024 Facility Location: [facility] Pre-Operative Diagnosis: Rectal cancer. Recurrent. Large-bowel obstruction. Rectourethral fistula. Post-Operative Diagnosis: Same. Procedure: Flexible sigmoidoscopy with biopsy. Colostomy creation. Attending Surgeon: Lorena Cazares MD, FACS FASCRS (present throughout entire procedure). Resident Surgeon: Kirk Gordon MD. Surgery Team: * Jeremy Cazares - Primary Anesthesia Team: Anesthesiologist: Chauncey Meza DO HOSPITAL HOUSEKEEPER: Kevin Love CRNA Anesthesia Type: Choice ASA Class: ASA status not filed in the log. Case Length: * Missing case tracking time(s) * Est Blood Loss: Minimal. Specimen: @SPECIMENDESCRIPTION@ Complications: None. Operative Description Indications: Mr. Sae Alexander is a 73 y.o. male evaluated for surgical management of locally advanced rectal mass consistent with recurrent rectal cancer with invasion to the prostate and urethra. Presented with partial large bowel obstruction. Failure. Scheduled for colostomy creation with biopsy to confirm rectal adenocarcinoma. Discussion was completed regarding surgical options during a pre-operative clinic visit; discussion specifically included scope of procedure. All risks, benefits, goals, and alternatives were discussed with Mr. Sae Alexander. Patient agreed to above stated procedures. Findings: Large rectal mass. Circumferential. Creating partial large bowel obstruction. 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 Operative Procedure (Narrative): SCIP INF-1: Prophylactic abx prior: None indicated. SCIP INF-10: Perioperative temperature control: Yes. SCIP VTE-2: Appropriate VTE prophylaxis: Bilateral SCDs. Patient was properly identified and consent was obtained. Patient was brought to the operating room. Transferred to the operating room table. GETA was administered. Patient was placed in the supine position. Abdomen was prepped and draped in standard surgical fashion. Visual inspection demonstratedflat abdomen. Flexible sigmoidoscopy performed. Patient placed in frog-leg position. Digital rectal examination performed. Mass obviously present extending outside of the anal canal. Olympus video endoscope was advanced into the rectum to the level of the rectosigmoid junction. Circumferential involvement of a friable infiltrative mass was noted. With insufflation, stool and air evacuated through the urethra. In the anterior midline position the defect in the rectal wall was consistent with rectal urethral fistula. Multiple biopsies were obtained. Colon was decompressed with removal of the endoscope. Midline abdominal incision was made above the umbilicus. Abdominal cavity was entered without difficulty. The transverse colon was easily accessible. Transverse colon was chosen for colostomy creation based on previous low anterior resection for rectal cancer. The transverse colon was divided. Mesen saulo was partially divided with LigaSure. The distal end of the colon was then opened and cysto tubing was advanced into the distal colon. 4 L of irrigation was used to irrigate the colon and rectum as an antegrade enema. Debris was evacuated. Subsequently irrigation returned as clear effluent. Thedistal end of the colon was then closed with PATRICIA stapler. The stoma site was created in the right upper quadrant. The proximal colon was brought up through the stoma site. Midline fascia closed. Skinclosed. The colostomy was then matured in a Britany like fashion. This completed the procedure. Patient tolerated the procedure well. Patient was transferred to the post anesthetic care unit without surgical or anesthetic complication. PLAN FOLLOWS: Continue inpatient admission. Addendum: Family not available for discussion of operative findings. * Brief Op Note - Kirk Gordon MD - 03/30/2024 2:17 PM EDT Date: 03/30/24 Location: [facility] OR Name: Sae Alexander, : 1950, Diagnoses: Pre-op Diagnosis Rectal cancer (CMS/HCC) Post-op Diagnosis Rectal cancer (CMS/HCC) Procedure(s): Flexible sigmoidoscopy with biopsy Diverting colostomy creation Attending Surgeon(s): * Jeremy Cazares - Primary Wet End Operator(s): * Kirk Gordon MD - Resident - Assisting * Lalit Newton MD - Resident - Assisting Anesthesia: Choice ASA: ASA status not filed in the log. Blood Administration: Blood Product Administration History Date Volume Status Transfuse RBC 03/29/2024 Transfusing Transfuse RBC 03/27/2024 264.58 mL Completed 03/27/24 1817 Estimated Blood Loss: 20 mL Drains: Colostomy RUQ (Active) Urethral Catheter (Active) Site Assessment Clean;Skin intact 03/30/24799 CAUTI: Collection Container Standard drainage bag;System closed;Collection container below bladder and tubing free of kinks 03/30/24799 CAUTI: Securement Method Securing device (Describe) 03/30/24799 CAUTI: Specimen Collection Port Covered with Alcohol Cap Yes 03/30/24799 CAUTI: Urinary Catheter Necessity Yes, meets criteria 03/30/24799 CAUTI: Urinary Catheter Necessity Reasons Acute urinary retention or bladder outlet obstruction 03/30/24799 Output (mL) 200 mL 03/30/24 0922 Specimen: Specimens ID Source Frozen? 1 Other (specify site) No Description: rectal biopsy 2 Other (specify site) No Description: omentum Complications: None; patient tolerated the procedure well. Submitted by: Kirk Gordon MD - 03/30/2024 Cosigned by Jeremy Cazares MD at 03/30/2024 4:15 PM EDT Associated attestation - Jeremy Cazares MD - 03/30/2024 4:15 PM EDT I saw and evaluated the patient with the resident/fellow. I discussed the case with the resident/fellow and agree with the findings and plan as documented. [facility] Colon and Rectal Surgery Brief Operative Note I saw and evaluated the patient with the resident/fellow; and operative findings have been discussed with the resident/fellow. Operative procedure performed is as described in the above brief operative note. I was present throughout the entire procedure and agree with the details of the brief operative note. Please see separate dictated operative note for complete details of procedure/operation. * Consults - Lina Weller RD - 03/30/2024 1:34 PM EDT Adult Nutrition Evaluation Note Sae Alexander 73 y.o. male CSN: [id number] Room/Bed OR/- Nutrition evaluation type: assessment Reason for evaluation: [facility] Hospital course: 73 y o M with PMH of LAR for stage III colon cancer; was noncompliant with systemic chemotherapy and no further follow-up was completed; transferred from OSH with large rectal mass that is consistentwith recurrent rectal cancer, contributing to LAR. Plan noted for OR 03/30 for lap colostomy creation, flex-sig & all other indicated procedures. Past medical/ surgical history: Past Medical History: Diagnosis Date Essential (primary) hypertension HTN (hypertension) Gout Pure hypercholesterolemia, unspecified Elevated cholesterol * Per notes: colon cancer Past Surgical History: Procedure Laterality Date CHOLECYSTECTOMY N/A Cholecystectomy from [facility] * Per notes: LAR Social history: Social History Tobacco Use Smoking status: Former Tobacco comments: Former smoker, [id number] 1.5 ppd Substance Use Topics Alcohol use: Never Drug use: Never Additional comments: 03/30: Pt out of room Vitals and Basic Assessment: BP: (!) 182/96 (Notified Dr. Meza. He is ok with current BP. No additional interventions needed.) Temp: 36.8 ??C (98.3 ??F) Oxygen Therapy: None (Room air) Metter Coma Scale Score: 15 South Scale Score: 17 Last BM Date: 03/30/24 GI Symptoms: Diarrhea Edema: Right lower extremity, Left lower extremity Allergies: NKA Medications: [Transfer Hold] acetaminophen, 1,000 mg, Oral, q6h CAROLYN [Transfer Hold] allopurinol, 300 mg, Oral, Daily [Transfer Hold] heparin (porcine), 5,000 Units, Subcutaneous, q8h CAROLYN micafungin, 100 mg, Intravenous, q24h [Transfer Hold] pantoprazole, 40 mg, Intravenous, Daily [Transfer Hold] phosphorus, 2 tablet, Oral, q8h piperacillin-tazobactam, 4.5 g, Intravenous, q6h [Transfer Hold] sodium chloride, 10 mL, Intravenous, q12h sodium chloride, 10 mL, Intravenous, q12h [Transfer Hold] tamsulosin, 0.8 mg, Oral, Daily [Transfer Hold] theophylline ER, 300 mg, Oral, Daily [START ON 03/31/2024] vancomycin, 1,000 mg, Intravenous, q12h dextrose 5 % and lactated Ringer's, 100 mL/hr, Last Rate: Stopped (03/30/24 0922) PRN medications: [Transfer Hold] albuterol, [Transfer Hold] benzocaine-menthol, [Transfer Hold] glucose OR [Transfer Hold] dextrose 10 %, [Transfer Hold] glucose OR [Transfer Hold] dextrose 10 %, [Transfer Hold] dextrose 10 % OR [Transfer Hold] glucose, [Transfer Hold] glucagon (human recombinant), [Transfer Hold] HYDROmorphone, [Transfer Hold] labetalol, [COMPLETED] Insert peripheralIV AND [COMPLETED] Saline lock IV AND [Transfer Hold] sodium chloride AND [Transfer Hold] sodium chloride, Insert peripheral IV AND Saline lock IV AND sodium chloride AND sodium chloride Meds were reviewed: Yes Labs: Results from last 7 days Lab Units 03/30/24 0121 03/28/24 0618 03/27/24 0320 WBC 10*3/uL 11.59* 16.83* 19.77* HEMOGLOBIN g/dL 10.3* 8.4* 7.0* HEMATOCRIT % 33.2* 28.0* 23.4* PLATELETS 10*3/uL 245 299 269 Results from last 7 days Lab Units 03/30/24 0121 03/28/24 0618 03/27/24 0320 SODIUM mmol/L 137 137 137 POTASSIUM mmol/L 3.6* 3.7 3.5* CHLORIDE mmol/L 106 107 105 CO2 mmol/L 21* 19* 20* BUN mg/dL 6* 18 14 CREATININE mg/dL 0.52* 0.57* 0.79* EGFR mL/min/1.73m*2 107.8 104.8 95.0 GLUCOSE mg/dL 95 142* 129* CALCIUM mg/dL 7.8* 8.0* 7.8* PHOSPHORUS mg/dL 2.0* 2.3* 3.7 Magnesium, Plasma Date Value Ref Range Status 03/30/2024 1.6 (L) 1.9 - 2.4 mg/dL Final -K+, Phos, & Mg low - monitor trends Lab Results Component Value Date ALT 7 (L) 03/27/2024 AST 15 03/27/2024 ALKPHOS 231 (H) 03/27/2024 BILITOT 0.5 03/27/2024 Lab Results Component Value Date ALBUMIN 2.2 (L) 03/27/2024 -Albumin is a negative acute phase protein, and therefore not a reliable indicator of malnutrition. No results found for: PREALBUMIN No results found for: CRP No results found for: HGBA1C No results found for: CHOL No results found for: HDL No results found for: LDLCALC No results found for: TRIG Anthropometrics: Height: 160 cm Weight: 54 kg IBW: 52.3 kg %IBW: 103.3 Adjusted Body Weight: N/A BMI: 21.1 Wt evaluation: Normal Weight History: Wt Readings from Last 30 Encounters: 03/23/24 54 kg (119 lb 0.8 oz) Estimated Needs: Current Nutrition Intake: Diet: NPO for OR; previously ordered Full Liquids Supplements: previously ordered Boost Plus & Impact AR Intake: avg 55% of documented meals since admit 7 days ago Nutrition Support: None at this time Diet Experience & Nutrition History: Diet Education: Will monitor appropriateness of ostomy diet education if creation required Pertinent Home Medications: Bentyl, Prilosec, Zocor, Theophylline Nutrition Focused Physical Exam: Physical exam performed on (date): pending - pt out of room Assessment of Malnutrition: Nutrition Problem: Inadequate oral intake related to need for OR as evidenced by NPO status. Status of Nutrition Diagnosis: New Nutrition Interventions and Recommendations: -Following OR, when appropriate, initiate clear liquids & AAT to Ostomy diet -Following advancement to Full Liquids, add Impact AR BID + Boost Plus daily -When appropriate, add MVI with minerals daily -Monitor & replace electrolytes prn -Recommend weekly weight monitoring -Consult for nutrition education when appropriate Nutrition Monitoring and Goals: -Monitor tolerance and adequacy of po intake / enteral infusion, wt changes, bowel fxn, labs, skin integrity; and follow up per acuity -Pt will tolerate diet advancement, and consume >/= 75% of most meals & supplements -NFPE on follow up Acuity Level: [address] * Consults - Keeley Dash - 03/30/2024 1:05 PM EDT Pastoral Care Note Referral From: Hand Former Hel[facility] Initiated Pastoral Care Provided For: Patient Patient Profile: Consult Reasons: Pre-surgery Spiritual Assessment: Support Systems/ Spiritual Resources: Unknown Spiritual Needs: Emotional support Interventions: Interventions Provided: Introduced Patient/Family to [facility] [employer], Emotional support Pastoral Care Outcomes: Patient Outcomes: Is knowledgeable about [facility] Nurse [facility] * Significant Event - Lalit Newton MD - 03/30/2024 5:58 AM EDT Patient to OR today for laparoscopic colostomy creation, flexible sigmoidoscopy and all other indicated procedures. - History and physical note at admission/most recent progress note reviewed with no significant changes noted. - The risks, benefits, indications, contraindications, and surgical alternatives were explained. Specifically, the risks of surgery, including bleeding, infection, injury to nearby organs or structures, need for additional surgery/procedures, wound complications, and complications of general anesthe julissa. Commonly associated risks of the procedure were also discussed and all questions were answered. - Written and informed consent was obtained 03/29. - NPO since midnight. Lalit Newton MD General Surgery, PGY-1 Pager: [phone] * Progress Notes - Lolis Caruso Booker - 03/29/2024 2:19 PM EDT Images from the original note were not included. [facility] Department of Surgery Division of Colon & Rectal Surgery Surgery Progress Note 03/29/24 Sae Alexander Full Code Subjective Subjective: HPI 73M with prior LAR for stage III colon cancer (2019), noncompliant with adjuvant chemotx presentingfrom OSH with large rectal mass c/w recurrent rectal cancer and c/f perforation. Interval: NAEON. Patient denies pain, nausea, vomiting, fever, or chills. Patient c/o wheezing overnight and had intermittent tachypnea, however SpO2 remained > 90% on room air. Patient given FLD today with boost supplementation. I: PO 210 IV 10 O: BM 7x Review of Systems: Relevant review of systems was obtained as able and is negative unless stated above in HPI. Objective Objective: Vital signs: Vitals: 03/29/24 0820 BP: (!) 174/84 Pulse: 90 Resp: 26 Temp: 36.5 ??C (97.7 ??F) SpO2: 95% Physical Exam: Physical Exam Vitals reviewed. HENT: Head: Normocephalic and atraumatic. Mouth/Throat: Mouth: Mucous membranes are moist. Pharynx: Oropharynx is clear. Eyes: General: No scleral icterus. Extraocular Movements: Extraocular movements intact. Cardiovascular: Rate and Rhythm: Normal rate and regular rhythm. Pulmonary: Effort: Pulmonary effort is normal. Breath sounds: Wheezing present. Abdominal: General: There is no distension. Palpations: Abdomen is soft. Tenderness: There is abdominal tenderness (mild diffuse). Genitourinary: Comments: Rodriguez in place. No stool visible at urethra or in bag. Skin: General: Skin is warm and dry. Coloration: Skin is not jaundiced. Neurological: General: No focal deficit present. Mental Status: He is alert and oriented to person, place, and time. Psychiatric: Mood and Affect: Mood normal. Behavior: Behavior normal. Intake/Output Summary (Last 24 hours) at 03/29/2024 1419 Last data filed at 03/29/2024 0938 Gross per 24 hour Intake 220 ml Output 600 ml Net -380 ml Lines/Drains/Tubes: Patient Lines/Drains/Airways Status Active Airway None Output by Drain (mL) 03/27/24 0700 - 03/27/24 18503/27/24 1900 - 03/28/24 0659 03/28/24 0700 - 03/28/24 1859 03/28/24 1900 - 03/29/24 0659 03/29/24 0700 - 03/29/24 1419 Requested LDAs do not have output data documented. Labs in last 18 hours: n/a Lab Trends: Results from last 7 days Lab Units 03/28/24 0618 03/27/24 0320 03/26/24 1313 HEMOGLOBIN g/dL 8.4* 7.0* 8.5* HEMATOCRIT % 28.0* 23.4* 29.3* Results from last 7 days Lab Units 03/23/24 0449 INR 1.3* Results from last 7 days Lab Units 03/28/24 0618 03/27/24 0320 03/26/24 1313 CREATININE mg/dL 0.57* 0.79* 0.70* Radiographic Interpretation: I have reviewed the imaging above and agree with the radiologist interpretation. XR Chest 1 View Result Date: 03/29/2024 Impression: Increased left basal atelectasis. CRITICAL RESULT: No. COMMUNICATION: Per this written report. Drafted by Steven Mitchell MD on 03/29/2024 2:05 PM Final report signed by Steven Mitchell MD on 03/29/2024 2:07 PM Medications reviewed. Vital signs reviewed. Labs reviewed. Assessment/Plan Assessment and Plan: Medical Problems Problem List * (Principal) Rectal cancer (CMS/HCC) Present on Admission: Rectal cancer (CMS/HCC) Plan Today: 73M with prior LAR for stage III colon cancer (2019), noncompliant with adjuvant chemotx presentingfrom OSH with large rectal mass c/w recurrent rectal cancer and c/f perforation. OR tomorrow for rectal mass biopsy and fecal diversion. Patient NPO at midnight. -Surgery tomrrow 03/30 -D5LR 100 mL/hr -Abx: Zosyn (03/23 - ), Vanc (03/26 - ), micafungin (03/27-) -Intermittent rodriguez flush -f/u Blood cultures -Resp: CXR today w/ mildly increased left basilar atelectasis, albuterol inhaler ordered Diet: FLD, boost. NPO at midnight tonight Pain: MMPC VTE ppx: SQH Dispo: Continue Current Level of Care Lolis Caruso, MS3 Cosigned by Jeremy Cazares MD at 03/29/2024 2:32 PM EDT Associated attestation - Jeremy Cazares MD - 03/29/2024 2:32 PM EDT I saw and evaluated the patient with the medical/HEEL PRICKER/PA student. I discussed the case with the medical/HEEL PRICKER/PA student and agree with the findings and plan as documented. I personally performed the Examand Medical Decision Making. Mr. Alexander is a 73-year-old male with recurrent rectal mass consistent with rectal cancer. Locallyadvanced. PLAN FOLLOWS: Tentatively plan for colostomy and biopsy on March 30, 2024. * Progress Notes - Shilpi Valero, MoriahD - 03/29/2024 10:54 AM EDT Images from the original note were not included. Pharmacokinetic Consult - Therapeutic Drug Monitoring HPI and Hospital Course: Sae Alexander is a 73 y.o. male presenting with rectosigmoid cancer who was started on vancomycin for intra-abdominal fluid collections, as well as micafungin for yeast in the blood. Pharmacy was consulted for management of vancomycin. Levels were obtained to assesssafety and efficacy of current dosing regimen. Dose History: Antimicrobials Penicillin Combinations Disp Start End piperacillin-tazobactam (Zosyn) 4.5 g in sodium chloride 0.9% 100 mL IVPB (Mini- Bag Plus) -- 03/23/2024 -- 4.5 g, Intravenous, Every 6 hours, Assemble vial with mini-bag PLUS bag Glycopeptides Disp Start End vancomycin in dextrose (Vancocin) IVPB 1,000 mg -- 03/29/2024 -- 1,000 mg, Intravenous, Every 12 hours @ 200 mL/hr vancomycin in dextrose (Vancocin) IVPB 1,000 mg (Discontinued) -- 03/27/2024 03/29/2024 1,000 mg, Intravenous, Every 18 hours @ 200 mL/hr Sodium Disp Start End piperacillin-tazobactam (Zosyn) 4.5 g in sodium chloride 0.9% 100 mL IVPB (Mini- Bag Plus) -- 03/23/2024 -- 4.5 g, Intravenous, Every 6 hours, Assemble vial with mini-bag PLUS bag Microbiology: Results Procedure Component Value Units Date/Time Blood Culture (Aerobic/Anaerobet Set) [[id number]] (Abnormal) Collected: 03/26/24 1313 Order Status: Completed Specimen: Blood from AC, Left Updated: 03/29/24 0120 Culture Clavispora lusitaniae (formerly Coco lusitaniae) Comment: Isolated from aerobic culture bottle only. This result was determined by MALDI tof mass spectrometry using the [employer] database and is for research use only. The organism value for this result has been updated. These results have been appended to the previously preliminary verified report. Edited result: Previously reported as Yeast on 03/28/2024 at 1349 EDT. Gram Stain Budding yeast Comment: Organism seen in Aerobic Blood Culture Bottle. Positivity Date and Time to Detection: 03/27/2024 at 01 Day(s) and 03 Hour(s). This is an appended report. These results have been appended to a previously preliminary verified report. Blood Culture (Aerobic/Anaerobet Set) [[id number]] Collected: 03/26/24 1313 Order Status: Completed Specimen: Blood from AC, Right Updated: 03/28/24 1401 Culture No growth at day 2 Methicillin Resistant Staphylococcus aureus (MRSA) by PCR [[id number]] (Abnormal) Collected: 03/28/24 1003 Order Status: Completed Specimen: Swab from Nares Updated: 03/28/24 1145 Methicillin Resistant Staphylococcus aureus (MRSA) by PCR Detected Narrative: This test is FDA approved for use with nares swab specimens using the eSwabs. This test is used forclinical purposes. It should not be regarded as investigational or for research. This laboratory iscertified under the Clinical Laboratory improvement Amendments of 1988 (CLIA-88 as qualified to perform high complexity clinical laboratory testing. Blood Culture Fungal ID [[id number]] (Abnormal) Collected: 03/26/24 1313 Order Status: Completed Specimen: Blood from AC, Left Updated: 03/27/24 1946 Clavispora lusitaniae Result Detected Narrative: Analytes Include: Coco albicans, Coco auris, Coco dublinensis, Debaryomyces hansenii (formerly Coco famata), Coco glabrata, Meyerozyma guilliermondii (formerly Coco guilliermondii),Kluyveromyces marxianus (formerly Coco kefyr), Pichia kudriavzevii (formerly Coco krusei), Cla vispora lusitaniae (formerly Coco lusitaniae), Coco parapsilosis, Coco tropicalis, Cryptococcus gattii, Cryptococcus neoformans, Fusarium species, and Rhodotorula species. Reference Value: Not detected for all analytes tested. Clostridiodes (Clostridium) difficile PCR [[id number]] (Normal) Collected: 03/27/24 1140 Order Status: Completed Specimen: Stool from Rectum Updated: 03/27/24 1310 C difficile PCR toxin B gene DNA Result Not Detected Narrative: This test is FDA approved for use with liquid stool specimens. This test is used for clinical purposes. It should not be regarded as investigational or for research. This laboratory is certified under the Clinical Laboratory Improvement Amendments of 1988 (CLIA-88) as qualified to perform high complexity clinical laboratory testing. Renal Function: Serum creatinine: 0.57 mg/dL (L) 03/28/24 0618 Estimated creatinine clearance: 90.8 mL/min (A) Intake/Output Summary (Last 24 hours) at 03/29/2024 1054 Last data filed at 03/29/2024 0938 Gross per 24 hour Intake 220 ml Output 600 ml Net -380 ml Pharmacokinetic Evaluation Current Regimen 1000mg IV [id number] Date/Time of Last Dose 03/28 @ 2331 C1 (random, drawn) 17.6 mcg/mL (2 hours after dose) C2 (trough, drawn) 6.4 mcg/mL (drawn 0.5h early) Ke 0.073 hr -1 T ?? 9.5 hr Cmax, actual 20.3 mcg/mL Ctrough, actual 6.1 mcg/mL Vd 64 L (1.2 L/kg) AUC 282 mg.hr/L New Total Daily Dose 2200 mg Assessment and Plan: AUC of 282 is considered SUBtherapeutic (goal 400-600). Utilizing the above detailed pharmacokinetic values, determined a new TDD to achieve an AUC within goal range. This equates to a TDD of 2200mg,but can be rounded to 1000mg Q12h for ease of dosing. This yields a Cmax of 26 mg/L, Cmin of 11.9 mg/L, and anticipated AUC of 423. 1. Recommend vancomycin 1000mg IV Q12H beginning 11:00. 2. Would suggest obtaining CBC, BMP at least 2 - 3 times weekly while admitted to assess renal function (SCr/BUN/UOP). 3. Recommend obtaining repeat vancomycin levels after 3-5 doses/steady state of regimen, or sooner for change in patient clinical status. 4. Adjust antimicrobial therapy as appropriate pending cultures and sensitivities. 5. Pharmacist will continue to monitor therapy with primary service. Thank you, Shilpi Valero, PharmD, BCCCP * Progress Notes - Lalit Newton MD - 03/28/2024 12:34 PM EDT Images from the original note were not included. [facility] Department of Surgery Division of Colon & Rectal Surgery Surgery Progress Note 03/28/24 Sae Alexander Full Code Subjective Subjective: HPI 73M with prior LAR for stage III colon cancer (2019), noncompliant with adjuvant chemotx presentingfrom OSH with large rectal mass c/w recurrent rectal cancer and c/f perforation. Interval: Reported stool leaking via rodriguez catheter yesterday evening. Otherwise no issues overnight. Tachycardia has resolved. AF, VSS. Surgery was unfortunately moved to 03/30. I: PO 480* IV 1715 Blood 264 IVPB 510 O: UOP 1440 Stool 13x Review of Systems: Relevant review of systems was obtained as able and is negative unless stated above in HPI. Objective Objective: Vital signs: Vitals: 03/28/24 1155 BP: Pulse: Resp: Temp: 36.3 ??C (97.4 ??F) SpO2: Physical Exam: Physical Exam Vitals reviewed. HENT: Head: Normocephalic and atraumatic. Eyes: General: No scleral icterus. Extraocular Movements: Extraocular movements intact. Cardiovascular: Rate and Rhythm: Normal rate and regular rhythm. Pulmonary: Effort: Pulmonary effort is normal. Abdominal: General: There is no distension. Palpations: Abdomen is soft. Tenderness: There is abdominal tenderness (mild diffuse). Genitourinary: Comments: Rodriguez in place. No stool visible at urethra or in bag. Skin: General: Skin is warm and dry. Coloration: Skin is not jaundiced. Neurological: General: No focal deficit present. Mental Status: He is alert. Psychiatric: Mood and Affect: Mood normal. Behavior: Behavior normal. Intake/Output Summary (Last 24 hours) at 03/28/2024 1235 Last data filed at 03/28/2024 0829 Gross per 24 hour Intake 3629.58 ml Output 1440 ml Net 2189.58 ml Lines/Drains/Tubes: Patient Lines/Drains/Airways Status Active Airway None Output by Drain (mL) 03/26/24 07 - 03/26/24 1859 03/26/24 190 - 03/27/24 0659 03/27/24 07 - 03/27/24 1859 03/27/24 1900 - 03/28/24 0659 03/28/24 07 - 03/28/24 1235 Requested LDAs do not have output data documented. Labs in last 18 hours: CBC WBC 16.83 (H) Hb 8.4 (L) Plt 299 Hct 28.0 (L) ANC ?? INR ??, PTT ??, Anti-Xa ?? MCV 75 (L) BMP Na 137 Cl 107 BUN 18 Glu 142 (H) K 3.7 Co2 19 (L) Cr 0.57 (L) Ca 8.0 (L) iCa ?? Mg 1.8 (L), Phos 2.3 (L) Lactate ?? LFT AST ?? AlkPhos ?? T Prot ?? ALK ?? Bili ?? Alb ?? D.Bili ?? Lab Trends: H/H Results from last 7 days Lab Units 03/28/24 0618 03/27/24 0320 03/26/24 1313 HEMOGLOBIN g/dL 8.4* 7.0* 8.5* HEMATOCRIT % 28.0* 23.4* 29.3* INR Results from last 7 days Lab Units 03/23/24 0449 INR 1.3* Cr Results from last 7 days Lab Units 03/28/24 0618 03/27/24 0320 03/26/24 1313 CREATININE mg/dL 0.57* 0.79* 0.70* Lactate No lab exists for component: LACTTEVEN Radiographic Interpretation: No imagining today. Medications reviewed. Vital signs reviewed. Labs reviewed. Assessment/Plan Assessment and Plan: Medical Problems Problem List * (Principal) Rectal cancer (CMS/HCC) Present on Admission: Rectal cancer (CMS/HCC) In summary, this is a 73 y.o. year old with prior LAR for stage III colon cancer (2019), noncompliant with adjuvant chemotx presenting from OSH with large rectal mass c/w recurrent rectal cancer and c/f perforation. On 03/26 he had an acute clinical decline and was started on vancomycin and an infectious workup was started. 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 He is currently HDS and in no acute distress. Surgery currently scheduled for 03/30. Plan Today: -Surgery rescheduled to 03/30 -mIVF -Abx: Zosyn (03/23 - ), Vanc (03/26 - ), micafungin (03/27-) -Intermittent rodriguez flush -f/u Blood cultures Diet: CLD Pain: MMPC VTE ppx: SQH Dispo: Continue Current Level of Care Lalit Newton MD Cosigned by Jeremy Cazares MD at 03/28/2024 12:55 PM EDT Associated attestation - Jeremy Cazares MD - 03/28/2024 12:55 PM EDT I saw and evaluated the patient with the resident/fellow. I discussed the case with the resident/fellow and agree with the findings and plan as documented. Mr. Alexander is a 73-year-old male presenting with large bowel obstruction secondary to locally advanced recurrent rectal cancer. Needs fecal diversion. PLAN FOLLOWS: Scheduled for colostomy creation. Time to be determined. Patient is scheduled for colostomy creation today, however, delay in case requested based on OR availability. * Progress Notes - Isela Jane RN - 03/28/2024 12:09 PM EDT Case Management Adult Progress Note Sae Alexander 73 y.o. male CSN: [id number] Admission: 03/23/2024 4:04 AM Primary Problem: Rectal cancer (CMS/HCC) Anticipated Discharge Date: unknown Has Discharge Plans Changed? No Medicare Second Notice: Housing Circumstances: Not Applicable Housing Circumstances Action Taken: Other Additional Comments Spoke to MD this am, pt not medically ready for d/c at this time. Do not anticipate patient to be ready for discharge within 72 hrs. Pt to go to the OR on Thursday. Will continue to follow and assist with d/c needs as they arise. Isela Jane RN * Progress Notes - Manjula Angelo RN - 03/28/2024 9:41 AM EDT Wound Care Consult Visit Date: 03/28/2024 Patient Name: Sae Alexander Date of : 1950 Admit Date: 03/23/2024 Reason for Consult: IP Wound Orders (From admission, onward) Start Ordered 03/27/24 1422 Wound ostomy eval and treat Once Comments: Plan for colostomy on 03/28. Needs preop marking. 03/27/24 1421 Marked patient in all 4 quadrants on flat surface in his line of site within the rectus. Discussed miguel was a recommendation and may be moved in surgery. Reviewed stoma basics, will follow up after surgery for hands on instruction. Patient provided return demonstration of how to snap together the appliance and open and close the pouch. Manjula Angelo RN 03/28/2024 9:41 AM * Care Plan - Tarah Hernandez - 03/27/2024 8:00 PM EDT Problem: Adult Inpatient Plan of Care Goal: Plan of Care Review Outcome: Ongoing, Progressing Goal: Patient-Specific Goal (Individualized) Outcome: Ongoing, Progressing Goal: Absence of Hospital-Acquired Illness or Injury Outcome: Ongoing, Progressing Goal: Optimal Comfort and Wellbeing Outcome: Ongoing, Progressing Goal: Readiness for Transition of Care Outcome: Ongoing, Progressing Problem: Infection Goal: Absence of Infection Signs and Symptoms Outcome: Ongoing, Progressing * Progress Notes - Poly Marti MD - 03/27/2024 6:10 PM EDT Images from the original note were not included. [facility] Department of Surgery Division of Colorectal Surgery Surgery Progress Note 03/27/24 Sae Mai Alex Subjective Subjective: HPI 73M with prior LAR for stage III colon cancer (2019), noncompliant with adjuvant chemotx presentingfrom OSH with large rectal mass c/w recurrent rectal cancer and c/f perforation. Interval: Tachycardic to 130s yesterday evening and WBC elevated to 24.18. Infectious workup started + Vancomycin. CXR concerning for pna. C.diff negative. 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 Started leaking stool around urethra this afternoon. Adequate UOP and multiple loose BM. I: PO 1320, IV 1980, IVPB 1850 O: UOP 525, Stool 14x Edited by: Poly Marti MD at 03/27/2024 1804 Review of Systems: Relevant review of systems was obtained as able and is negative unless stated above in HPI. Objective Objective: Vital signs: Vitals: 03/27/24 1720 BP: (!) 150/68 Pulse: (!) 116 Resp: 25 Temp: 36.7 ??C (98 ??F) SpO2: 95% Physical Exam: Physical Exam HENT: Nose: Nose normal. Mouth/Throat: Mouth: Mucous membranes are moist. Pharynx: Oropharynx is clear. Cardiovascular: Rate and Rhythm: Normal rate and regular rhythm. Pulmonary: Effort: Pulmonary effort is normal. Abdominal: General: There is no distension. Palpations: Abdomen is soft. Tenderness: There is abdominal tenderness (mild diffuse ttp). Genitourinary: Comments: Stool leaking around rodriguez catheter Skin: General: Skin is warm and dry. Neurological: General: No focal deficit present. Mental Status: He is alert. Intake/Output Summary (Last 24 hours) at 03/27/2024 1810 Last data filed at 03/27/2024 0600 Gross per 24 hour Intake 2082 ml Output 300 ml Net 1782 ml Lines/Drains/Tubes: Patient Lines/Drains/Airways Status Active Airway None Output by Drain (mL) 03/25/24 07 - 03/25/24 1859 03/25/24 190 - 03/26/24 0659 03/26/24 07 - 03/26/24 1859 03/26/24 1900 - 03/27/24 0659 03/27/24 0700 - 03/27/24 1810 Requested LDAs do not have output data documented. Labs in last 18 hours: CBC WBC 19.77 (H) Hb 7.0 (L) Plt 269 Hct 23.4 (L) ANC ?? INR ??, PTT ??, Anti-Xa ?? MCV 72 (L) BMP Na 137 Cl 105 BUN 14 Glu 129 (H) K 3.5 (L) Co2 20 (L) Cr 0.79 (L) Ca 7.8 (L) iCa ?? Mg 2.2, Phos 3.7 Lactate ?? LFT AST 15 AlkPhos 231 (H) T Prot 4.7 (L) ALK 7 (L) Bili 0.5 Alb ?? D.Bili ?? Lab Trends: H/H Results from last 7 days Lab Units 03/27/24 0320 03/26/24 1313 03/26/24 0353 HEMOGLOBIN g/dL 7.0* 8.5* 8.7* HEMATOCRIT % 23.4* 29.3* 29.1* INR Results from last 7 days Lab Units 03/23/24 0449 INR 1.3* Cr Results from last 7 days Lab Units 03/27/24 0320 03/26/24 1313 03/26/24 0353 CREATININE mg/dL 0.79* 0.70* 0.57* Lactate No lab exists for component: LACTTEVEN === 03/23/24 === CT CHEST W IV [...] Levi Mccord MD on 03/27/2024 2:19 PM Radiographic Interpretation: I have reviewed the imaging above and agree with the radiologist interpretation. Medications reviewed. Vital signs reviewed. Labs reviewed. Assessment/Plan Assessment and Plan: Medical Problems Problem List * (Principal) Rectal cancer (CMS/HCC) Present on Admission: Rectal cancer (CMS/HCC) Mr. Alexander is a 73M with prior LAR for stage III colon cancer (2018), noncompliant with adjuvant chemotx presenting from OSH with large rectal mass c/w recurrent rectal cancer and c/f perforation. He has surgery scheduled for 03/28 for diverting colostomy. On 03/26 he had an acute clinical decline and was started on vancomycin and an infectious workup was started. On 03/27 imaging and clinical examis concerning for a rectovesical fistula. He is currently HDS and in no acute distress. We will continue with abx management and surgery tomorrow. Plan: -OR tomorrow 03/28 for rectal mass biopsy and fecal diversion, plan for flex sign and diverting colostomy 03/28 -mIVF -Abx: Zosyn (03/23 - ), Vanc (03/26 - ), Leisa (03/27 - ) -CXR in AM -Intermittent rodriguez flush -Blood cx: 11/19 bottles + for yeast Diet: NPO Pain: MMPC VTE ppx: SQH Edited by: Poly Marti MD at 03/27/2024 006 Dispo: Continue Current Level of Care Poly Marti MD Cosigned by Jeremy Cazares MD at 03/28/2024 12:55 PM EDT Associated attestation - Jeremy Cazares MD - 03/28/2024 12:55 PM EDT I saw and evaluated the patient with the medical/HEEL PRICKER/PA student. I discussed the case with the medical/HEEL PRICKER/PA student and agree with the findings and plan as documented. I personally performed the Examand Medical Decision Making. Mr. Alexander is a 73-year-old male presenting with large bowel obstruction secondary to locally advanced recurrent rectal cancer. Needs fecal diversion. PLAN FOLLOWS: Scheduled for colostomy creation. Time to be determined. * Progress Notes - Lina Simpson, PharmD - 03/26/2024 4:41 PM EDT Sae Alexander is a 73 y.o. 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 Pharmacy was consulted to dose vancomycin for this patient. Ht (cm) = 160 Wt (kg) = 54 Labs in last 18 hours CBC WBC 24.18 (H) Hb 8.5 (L) Plt 313 Hct 29.3 (L) BMP Na 138 Cl 104 BUN 8 Glu 70 (L) K 3.5 (L) Co2 18 (L) Cr 0.70 (L) Creatinine Clearance = 73.9 mL/min Lactate ?? Recommendations: Recommend initiating vancomycin 1250mg x1 as a loading dose, followed by vancomycin 1000mg (~18.5 mg/kg) IV q18h to target AUC 400-600 mg*hr/L and trough 10-20 mcg/mL. Estimated AUC 536 with trough ~12.5 mcg/mL. Closely monitor renal function while patient is receiving antimicrobial therapy. Would suggest obtaining CBC, BMP at least 2-3 times weekly while admitted to assess renal function (Scr/BUN/UOP) Will obtain two-level patient specific kinetics prior to appropriate dose to evaluate if dosage adjustments are required De-escalate therapy when clinically appropriate Primary pharmacist will continue to monitor with team. Lina Simpson, PharmD, [facility] Clinical Pharmacist - Surgery Services * Progress Notes - Lolis Caruso - 03/26/2024 11:17 AM EDT Images from the original note were not included. [facility] Department of Surgery Division of Colon & Rectal Surgery Surgery Progress Note 03/26/24 Sae Alexander Full Code Subjective Subjective: HPI 73M with prior LAR for stage III colon cancer (2019), noncompliant with adjuvant chemotx presentingfrom OSH with large rectal mass c/w recurrent rectal cancer and c/f perforation. Interval: NAEO. AFVSS other than tachycardia to 115. WBC 20 from 18. Patient had multiple episodes of diarrhea overnight but otherwise feels well. No fever/chills. Required electrolyte correction this morning. Review of Systems: Relevant review of systems was obtained as able and is negative unless stated above in HPI. Objective Objective: Vital signs: Vitals: 03/26/24 0804 BP: 130/70 Pulse: (!) 117 Resp: Temp: 37.3 ??C (99.1 ??F) SpO2: 94% Physical Exam: Physical Exam Constitutional: Appearance: Normal appearance. Cardiovascular: Rate and Rhythm: Normal rate. Pulmonary: Effort: Pulmonary effort is normal. Abdominal: General: Abdomen is flat. Palpations: Abdomen is soft. Genitourinary: Comments: Fungating rectal mass with blood tinged mucous Musculoskeletal: General: Normal range of motion. Cervical back: Normal range of motion. Skin: General: Skin is warm. Capillary Refill: Capillary refill takes less than 2 seconds. Neurological: General: No focal deficit present. Mental Status: He is alert. Intake/Output Summary (Last 24 hours) at 03/26/2024 1117 Last data filed at 03/26/2024 0526 Gross per 24 hour Intake 1968 ml Output 1560 ml Net 408 ml Lines/Drains/Tubes: Patient Lines/Drains/Airways Status Active Airway None Output by Drain (mL) 03/24/24 07 - 03/24/24 18503/24/241899 - 03/25/24 0659 03/25/24 07 - 03/25/24 1859 03/25/24 190 - 03/26/24 0659 03/26/24 07 - 03/26/24 1117 Requested LDAs do not have output data documented. Labs in last 18 hours: CBC WBC 20.00 (H) Hb 8.7 (L) Plt 310 Hct 29.1 (L) ANC ?? INR ??, PTT ??, Anti-Xa ?? MCV 72 (L) BMP Na 139 Cl 107 BUN 7 (L) Glu 138 (H) K 3.2 (L) Co2 22 Cr 0.57 (L) Ca 8.0 (L) iCa ?? Mg 1.7 (L), Phos 2.6 Lactate ?? Lab Trends: H/H Results from last 7 days Lab Units 03/26/24 0353 03/25/24 0637 03/23/24 0449 HEMOGLOBIN g/dL 8.7* 9.2* 8.4* HEMATOCRIT % 29.1* 29.9* 27.1* INR Results from last 7 days Lab Units 03/23/24 0449 INR 1.3* Cr Results from last 7 days Lab Units 03/26/24 0353 03/25/24 0637 03/23/24 0449 CREATININE mg/dL 0.57* 0.51* 0.58* Radiographic Interpretation: No imagining today. Medications reviewed. Vital signs reviewed. Labs reviewed. Assessment/Plan Assessment and Plan: Medical Problems Problem List * (Principal) Rectal cancer (CMS/HCC) Present on Admission: Rectal cancer (CMS/HCC) Plan Today: 73M with prior LAR for stage III colon cancer (2018), noncompliant with adjuvant chemotx presentingfrom OSH with large rectal mass c/w recurrent rectal cancer and c/f perforation. Increased WBC today but patient denies feeling acutely ill (fever/chills/fatigue), will continue to monitor. Tentativeplan is patient to OR Thursday, will obtain consent prior. - Surgical planning for rectal mass biopsy and fecal diversion, plan for flex sign and diverting colostomy 03/28 - D5LR 42 mL/hr - Replacement of K+, Mg+ - Diet: GI soft, Boost supplement - MMPC -VTE ppx: SQH, SCD - Abx: Zosyn (first dose 03/23, last dose TBD ) Dispo: Continue Current Level of Care Lolis Caruso, MS3 Cosigned by Varinder Morales MD at 03/26/2024 3:43 PM EDT Associated attestation - Varinder Morales MD - 03/26/2024 3:43 PM EDT I saw and evaluated the patient with the medical/HEEL PRICKER/PA student. I discussed the case with the medical/HEEL PRICKER/PA student and agree with the findings and plan as documented. I personally performed the Examand Medical Decision Making. * Care Plan - Sae Wells RN - 03/25/2024 8:29 PM EDT Problem: Adult Inpatient Plan of Care Goal: Plan of Care Review Outcome: Ongoing, Progressing Goal: Patient-Specific Goal (Individualized) Outcome: Ongoing, Progressing Goal: Absence of Hospital-Acquired Illness or Injury Outcome: Ongoing, Progressing Goal: Optimal Comfort and Wellbeing Outcome: Ongoing, Progressing Goal: Readiness for Transition of Care Outcome: Ongoing, Progressing Problem: Infection Goal: Absence of Infection Signs and Symptoms Outcome: Ongoing, Progressing * Progress Notes - Lolis Caruso Booker - 03/25/2024 2:13 PM EDT Images from the original note were not included. [facility] Department of Surgery Division of Colon & Rectal Surgery Surgery Progress Note 03/25/24 Sae Alexander Full Code Subjective Subjective: HPI 73-year-old male with prior low anterior resection for stage III colon cancer (2019), noncompliant with adjuvant systemic chemotherapy now presenting as transfer from OSH with large rectal mass that is consistent with recurrent rectal cancer that is clinically concerning perforated rectal mas. Patient to undergo biopsy of rectal mass with fecal diversion, time/date TBD. Interval: NAEO. Patient continues to be hypertensive, vitals are stable otherwise. Patient has 3x episodes of diarrhea overnight. He is tolerating PO intake, will decrease mIVF and give patient GI soft diet as he awaits definitive surgical intervention. Review of Systems: Relevant review of systems was obtained as able and is negative unless stated above in HPI. Objective Objective: Vital signs: Vitals: 03/25/24 1157 BP: (!) 165/73 Pulse: 102 Resp: 16 Temp: 36.7 ??C (98 ??F) SpO2: 96% Physical Exam: Physical Exam Constitutional: Appearance: Normal appearance. Cardiovascular: Rate and Rhythm: Normal rate. Pulmonary: Effort: Pulmonary effort is normal. Abdominal: General: Abdomen is flat. Palpations: Abdomen is soft. Genitourinary: Comments: Fungating rectal mass with blood tinged mucous Musculoskeletal: General: Normal range of motion. Cervical back: Normal range of motion. Skin: General: Skin is warm. Capillary Refill: Capillary refill takes less than 2 seconds. Neurological: General: No focal deficit present. Mental Status: He is alert. Intake/Output Summary (Last 24 hours) at 03/25/2024 1414 Last data filed at 03/25/2024 0900 Gross per 24 hour Intake 1840 ml Output 2730 ml Net -890 ml Lines/Drains/Tubes: Patient Lines/Drains/Airways Status Active Airway None Output by Drain (mL) 03/23/24 07 - 03/23/24 18503/23/24 1900 - 03/24/24 0659 03/24/24 07 - 03/24/24 1859 03/24/24 1900 - 03/25/24 0659 03/25/24 07 - 03/25/24 1414 Requested LDAs do not have output data documented. Labs in last 18 hours: CBC WBC 18.04 (H) Hb 9.2 (L) Plt 297 Hct 29.9 (L) ANC ?? INR ??, PTT ??, Anti-Xa ?? MCV 72 (L) BMP Na 139 Cl 106 BUN 4 (L) Glu 127 (H) K 3.6 (L) Co2 23 Cr 0.51 (L) Ca 8.4 (L) iCa ?? Mg 1.5 (L), Phos 2.8 Lactate ?? Lab Trends: H/H Results from last 7 days Lab Units 03/25/24 0637 03/23/24 0449 HEMOGLOBIN g/dL 9.2* 8.4* HEMATOCRIT % 29.9* 27.1* INR Results from last 7 days Lab Units 03/23/24 0449 INR 1.3* Cr Results from last 7 days Lab Units 03/25/24 0637 03/23/24 0449 CREATININE mg/dL 0.51* 0.58* Radiographic Interpretation: I have reviewed the imaging above and agree with the radiologist interpretation. Medications reviewed. Vital signs reviewed. Labs reviewed. Assessment/Plan Assessment and Plan: Medical Problems Problem List * (Principal) Rectal cancer (CMS/HCC) Present on Admission: Rectal cancer (CMS/HCC) Plan Today: 73-year-old male with prior low anterior resection for stage III colon cancer (2019), with large rectal mass that is consistent with recurrent rectal cancer. Patient remains clinically stable while awaiting further surgical planning of to rectal mass biopsy, likely with fecal diversion. - Surgical planning for rectal mass biopsy and fecal diversion - D5LR 42 mL/hr - CBC, BMP, Mg, Phos in the morning - Diet: GI soft - MMPC -VTE ppx: SQH, SCD - Abx: Zosyn (first dose 5/8, last dose TBD ) Edited by: Lolis Caruso at 03/25/2024 1413 - Discharge teaching and planning Dispo: Continue Current Level of Care Lolis Caruso. MS3 Cosigned by Jeremy Cazares MD at 03/28/2024 12:54 PM EDT Associated attestation - Jeremy Cazares MD - 03/28/2024 12:54 PM EDT I saw and evaluated the patient with the medical/HEEL PRICKER/PA student. I discussed the case with the medical/HEEL PRICKER/PA student and agree with the findings and plan as documented. I personally performed the Examand Medical Decision Making. Mr. Alexander is a 73-year-old male with recurrent rectal cancer. Contributing to large bowel obstruction. PLAN FOLLOWS: Continue supportive care. * Care Plan - Sae Wells RN - 03/24/2024 7:50 PM EDT Problem: Adult Inpatient Plan of Care Goal: Plan of Care Review Outcome: Ongoing, Progressing Goal: Patient-Specific Goal (Individualized) Outcome: Ongoing, Progressing Goal: Absence of Hospital-Acquired Illness or Injury Outcome: Ongoing, Progressing Goal: Optimal Comfort and Wellbeing Outcome: Ongoing, Progressing Goal: Readiness for Transition of Care Outcome: Ongoing, Progressing Problem: Infection Goal: Absence of Infection Signs and Symptoms Outcome: Ongoing, Progressing * Progress Notes - Isela Jane RN - 03/24/2024 3:29 PM EDT Case Management Adult Progress Note Sae Alexander 73 y.o. male CSN: [id number] Admission: 03/23/2024 4:04 AM Primary Problem: Rectal cancer (CMS/HCC) Anticipated Discharge Date: unknown Has Discharge Plans Changed? No Medicare Second Notice: Housing Circumstances: Not Applicable Housing Circumstances Action Taken: Other Additional Comments Spoke to MD this am, pt not medically ready for d/c at this time. Do not anticipate patient to be ready for discharge within 72 hrs. Anticipate pt to go to the OR this admission. Will continue to follow and assist with d/c needs as they arise. Isela Jane, RN * Progress Notes - Dc Rizzo MD - 03/24/2024 6:30 AM EDT 03/24/24 Sae Mai Alexander HPI 73M presenting 03/23 with suprapubic pain and bladder spasms. SCR consulted 03/23 for rectal abscess. PMH Rectosigmoid cancer. Interval: NAEO. HTN to 184/71 overnight. Tachycardic to 112 overnight. Reports sore throat due attributes to dryness. Edited by: Dc Rizzo MD at 03/24/20241941 Relevant review of systems was obtained as able and is negative unless stated above in HPI. Vital signs: Vitals: 03/24/241924 BP: (!) 175/70 Pulse: 104 Resp: 18 Temp: 37.3 ??C (99.1 ??F) SpO2: 94% Physical Exam Constitutional: Appearance: Normal appearance. Cardiovascular: Rate and Rhythm: Normal rate. Pulmonary: Effort: Pulmonary effort is normal. Abdominal: General: Abdomen is flat. Palpations: Abdomen is soft. Genitourinary: Comments: Fungating rectal mass with blood tinged mucous Musculoskeletal: General: Normal range of motion. Cervical back: Normal range of motion. Skin: General: Skin is warm. Capillary Refill: Capillary refill takes less than 2 seconds. Neurological: General: No focal deficit present. Mental Status: He is alert. Intake/Output Summary (Last 24 hours) at 03/24/20241943 Last data filed at 03/24/2024 1800 Gross per 24 hour Intake 4150 ml Output 1430 ml Net 2720 ml Lines/Drains/Tubes: Patient Lines/Drains/Airways Status Active Airway None Output by Drain (mL) 03/22/24 0700 - 03/22/24 1859 03/22/24 1900 - 03/23/24 0659 03/23/24 07 - 03/23/24 18503/23/24 190 - 03/24/24 0659 03/24/24699 - 03/24/24185803/24/241899 - 03/24/241943 Requested LDAs do not have output data documented. Labs in last 18 hours: CBC WBC ?? Hb ?? Plt ?? Hct ?? ANC ?? INR ??, PTT ??, Anti-Xa ?? MCV ?? BMP Na ?? Cl ?? BUN ?? Glu ?? K ?? Co2 ?? Cr ?? Ca ?? iCa ?? Mg ??, Phos ?? Lactate ?? LFT AST ?? AlkPhos ?? T Prot ?? ALK ?? Bili ?? Alb ?? D.Bili ?? Lab Trends: H/H Results from last 7 days Lab Units 03/23/24448 HEMOGLOBIN g/dL 8.4* HEMATOCRIT % 27.1* INR Results from last 7 days Lab Units 03/23/249 INR 1.3* Cr Results from last 7 days Lab Units 03/23/24 0449 CREATININE mg/dL 0.58* Medications reviewed. Vital signs reviewed. Labs reviewed. Radiography reviewed. Assessment and Plan: Medical Problems and Relevant Plans Hospital Problems POA * (Principal) Rectal cancer (CMS/HCC) Yes Plan: -Plan for OR, date/time TBD -Diet: Regular -MMPC -VTE ppx: SQH -Abx: Zosyn (03/23 - ) Edited by: Dc Rizzo MD at 03/24/20241943 Dc Rizzo MD Cosigned by Jeremy Cazares MD at 03/24/2024 11:28 PM EDT Associated attestation - Jeremy Cazares MD - 03/24/2024 11:28 PM EDT I saw and evaluated the patient with the resident/fellow. I discussed the case with the resident/fellow and agree with the findings and plan as documented. Mr. Alexander is a 73YM with rectal mass consistent with metachronous rectal cancer. Needs biopsy andfecal diversion. PLAN FOLLOWS: Continue supportive care. * Care Plan - Sae Wells RN - 03/23/2024 10:24 PM EDT Problem: Adult Inpatient Plan of Care Goal: Plan of Care Review Outcome: Ongoing, Progressing Goal: Patient-Specific Goal (Individualized) Outcome: Ongoing, Progressing Goal: Absence of Hospital-Acquired Illness or Injury Outcome: Ongoing, Progressing Goal: Optimal Comfort and Wellbeing Outcome: Ongoing, Progressing Goal: Readiness for Transition of Care Outcome: Ongoing, Progressing * Progress Notes - Isela Jane RN - 03/23/2024 3:48 PM EDT Case Management Adult Initial Progress Note Sae Alexander 73 y.o. male CSN: [id number] Admission: 03/23/2024 4:04 AM Primary Problem: Rectal cancer (CMS/HCC) Produce Shipper reviewed chart and spoke with patient at to complete this Initial Case Management Assessment. PCP: Pcp, Mariela Emergency Contact: Extended Emergency Contact Information Primary Emergency Contact: Idalia Ulloa Mobile Relation: Sister Preferred language: [place] [facility] Dentist needed? No Secondary Emergency Contact: Tabatha Alexander Mobile Relation: Daughter Preferred language: [place] [employer] Dentist needed? No Insurance: Primary Visit Coverage Payer Plan Sponsor Code Group Number Group Name [employer] MEDICARE [employer] MEDICARE [id number] Primary Visit Coverage Subscriber Subscriber ID Subscriber Name Subscriber SSN Subscriber Address [id number] SAE ALEXANDER [id number] [id number] Patient information: Primary Caregiver: Self Accompanied by/Relationship: self Support System: Immediate family Daily Living Activities: Functional Status: Independent Living Arrangements: Alone Type of Residence: Single Level [address] [id number] Current DME: Equipment Currently Used at Home: none Housing Circumstances-Z Codes: Housing Circumstances (select all that apply): None Applicable Anticipated Discharge Date: unknown Patient's Discharge Goal: home Assistance Available at Discharge: None, however, son will be home next week and can assist then Discharge Transport: TBD Follow Up Transport: son Home Health / Home Infusion / Outpatient Dialysis Services: none Living Will/Advance Directive/Power of General Dentist/Owner /Guardian: Pt does not have a living will or POA. Additional Comments: Pt admitted for rectal cancer. Met with pt at bs, verified information. Pt does not have a PCP. Pt lives alone, he states his son will be home from the [employer] next week and will be able to provide assistance at home if needed. Pt has [employer] Medicare as his insurance. Transportation home will be provided by his son. Pt has listed his sister, Idalia Ulloa, as his emergency contact, phone # [phone], and his cofaohdo-cr-swq, Tabatha Alexander, . Pt obtains medications from [email or web address]. Pt currently has a bsc that he does not use, he is not receiving services. Will continue to follow and assist with d/c needs as they arise. Isela Jane RN * H&P - Sudha Villagran DO - 03/23/2024 6:03 AM EDTAssociated Order(s): Consult to Colorectal Surgery - [facility]urg [place] Images from the original note were not included. [facility] Department of Surgery Division of Colorectal Surgery History & Physical Note Reason for Consult: Rectal abscess Requesting Service: Emergency Department Consult Date and Time: 03/23/2024 0456 Consult to Colorectal Surgery - [facility] [place] Consult performed by: Sudha Villagran DO Consult ordered by: Caron Gordon MD Subjective History of Present Illness: Chief Complaint: urinary retention Sae Alexander is a 73 y.o. 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 Cazares 06/2019 who presented to the [facility] on 03/23/2024 with urinary retention. Patient went to OSH where CT scan was performed and demonstrated concern for rectal abscess vs malignancy. He had a leukocytosis of 17. He was given zosyn and transferred here for higher level of care. Patient states he did not receive chemotherapy after his surgery. He hasn't had a colonoscopy. He has been having diarrhea for the past month. Sometimes there is blood in his stool. He denies fevers/chills nausea or emesis. He has had 10 lb weight loss recently after his . Review of Systems: Relevant review of systems was obtained as able and is negative unless stated above in HPI. History Obtained From: Patient Past Medical History: Past Medical History: Diagnosis Date Essential (primary) hypertension HTN (hypertension) Gout Pure hypercholesterolemia, unspecified Elevated cholesterol Allergies And Reactions: No Known Allergies Past Surgical History: Past Surgical History: Procedure Laterality Date CHOLECYSTECTOMY N/A Cholecystectomy from [facility] Family Medical History: Family History Problem Relation Name Age of Onset Lung cancer Father FH: lung cancer Reviewed and Non-contributory Social History: Social History Socioeconomic History Marital status: Spouse name: Not on file Number of children: Not on file Years of education: Not on file Highest education level: Not on file Occupational History Not on file Tobacco Use Smoking status: Former Smokeless tobacco: Not on file Substance and Sexual Activity Alcohol use: Never Drug use: Never Sexual activity: Not on file Other Topics Concern Not on file Social History Narrative Not on file Social Determinants of Health Financial Resource Strain: Not on file Food Insecurity: Not on file Transportation Needs: Not on file Physical Activity: Not on file Stress: Not on file Social Connections: Not on file Intimate Partner Violence: Not on file Housing Stability: Not on file Immunizations: There is no immunization history on file for this patient. I have updated and confirmed the past medical, surgical, family and social history. Home Medications: Prior to Admission medications Not on File Anti-Thrombotic Medications: Is this patient taking warfarin, new oral anti-coagulant, or anti-platelet medication? No If Yes, What Medication: N/A Current Hospital Medications: Current Facility-Administered Medications Medication Dose Route Frequency Provider Last Rate Last Admin dextrose 5 % and lactated Ringer's infusion 100 mL/hr Intravenous Continuous Sudha Villagran DO piperacillin-tazobactam (Zosyn) 4.5 g in sodium chloride 0.9% 100 mL IVPB (Mini- Bag Plus) 4.5 g Intravenous q6h Sudha Villagran DO sodium chloride 0.9 % flush 10 mL 10 mL Intravenous q12h VillagranSudha chauhan DO And sodium chloride 0.9 % flush 10 mL 10 mL Intravenous PRN Sudha Villagran DO No current outpatient medications on file. Objective Objective: Visit Vitals BP (!) 159/66 Pulse 98 Temp 36.8 ??C (98.2 ??F) (Oral) Ht 1.6 m (5' 2.99 ) Wt 54 kg (119 lb 0.8 oz) SpO2 99% BMI 21.09 kg/m?? @ Physical Exam: Physical Exam Constitutional: Appearance: Normal appearance. Cardiovascular: Rate and Rhythm: Normal rate. Pulmonary: Effort: Pulmonary effort is normal. Abdominal: General: Abdomen is flat. Palpations: Abdomen is soft. Genitourinary: Comments: Fungating rectal mass with blood tinged mucous Musculoskeletal: General: Normal range of motion. Cervical back: Normal range of motion. Skin: General: Skin is warm. Capillary Refill: Capillary refill takes less than 2 seconds. Neurological: General: No focal deficit present. Mental Status: He is alert. Laboratory: CBC WBC 15.97 (H) Hb 8.4 (L) Plt 299 Hct 27.1 (L) ANC 14.11 (H) INR 1.3 (H), PTT 43 (H), Anti-Xa ?? MCV 71 (L) BMP Na 139 Cl 105 BUN 7 (L) Glu 111 (H) K 3.8 Co2 23 Cr 0.58 (L) Ca 8.6 (L) iCa 4.7 Mg ??, Phos ?? Lactate ?? LFT AST 17 AlkPhos 235 (H) T Prot 6.1 (L) ALK 9 (L) Bili 0.7 Alb ?? D.Bili ?? Imaging: Radiographic Interpretation: I have reviewed the imaging above, there is evidence of rectal cancer perforation, fungating rectal mass Assessment/Plan Assessment & Plan: Sae Alexander is a 73 y.o. 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 Patient is tachycardic with a leucocytosis of 15. Will admit to CRS with operative plan pending. -Admit to CRS -mivf -Zosyn -npo -restart appropriate home meds Medical Problems Problem List * (Principal) Rectal cancer (CMS/HCC) Dispo: Admit to CRS CODE STATUS: full code This Consult, Assessment, and Plan has been discussed with Dr. Cazares, Attending Physician Sudha Villagran DO Cosigned by Jeremy Cazares MD at 03/23/2024 7:27 PM EDT Associated attestation - Jeremy Cazares MD - 03/23/2024 7:27 PM EDT I saw and evaluated the patient with the resident/fellow. I discussed the case with the resident/fellow and agree with the findings and plan as documented. Mr. Alexander is a 73-year-old male with prior low anterior resection for stage III colon cancer. Index operation in 2019. At that time, adjuvant therapy was recommended. Patient was noncompliant with systemic chemotherapy and no further follow-up was completed. Now returns as a transfer from outlying facility with large rectal mass that is consistent with recurrent rectal cancer. Clinical examination demonstrates a firm mass protruding from the anal canal. Still continues to have bowel function although pain and occasional bleeding are problematic. WBC 15. Likely will need fecal diversion. Timing to be determined. PLAN FOLLOWS: Admit. We will need biopsy of rectal mass. * ED Provider Notes - Sunday Lim MD - 03/23/2024 4:04 AM EDT - HPI Chief Complaint Patient presents with Abscess Chief Complaint: Cecilia Alexander is a 73 y.o. male with pmh of Rectosigmoid cancer presenting with a chief complaintof abscess. Patient initially presented to an outside hospital yesterday due to bladder spasms and suprapubic pain. At the outside hospital patient had a CT scan done and had concern for abscess or new mass. Patient was given Zosyn and had a white count of 17 at the outside hospital. No data recorded Patient History Past Medical History: Diagnosis Date Essential (primary) hypertension HTN (hypertension) Gout Pure hypercholesterolemia, unspecified Elevated cholesterol Past Surgical History: Procedure Laterality Date CHOLECYSTECTOMY N/A Cholecystectomy from [facility] Family History Problem Relation Name Age of Onset Lung cancer Father FH: lung cancer Tobacco Use Smoking status: Former Substance Use Topics Alcohol use: Never Drug use: Never Immunization History Immunization History: reviewed Allergies: No Known Allergies Review of Systems Review of Systems Constitutional: Negative for fever. Gastrointestinal: Positive for abdominal pain and diarrhea. Negative for nausea and vomiting. Musculoskeletal: Negative for back pain. Neurological: Negative for light-headedness and numbness. Psychiatric/Behavioral: Negative for confusion. Physical Exam ED Triage Vitals [03/23/24 0409] Temp Heart Rate Resp BP 36.8 ??C (98.2 ??F) 98 17 (!) 159/66 SpO2 Temp Source Heart Rate Source Patient Position 99 % Oral -- -- BP Location FiO2 (%) -- -- Physical Exam Constitutional: General: He is not in acute distress. Appearance: He is not ill-appearing. Eyes: Pupils: Pupils are equal, round, and reactive to light. Cardiovascular: Rate and Rhythm: Normal rate. Pulses: Normal pulses. Pulmonary: Effort: Pulmonary effort is normal. No respiratory distress. Abdominal: Palpations: Abdomen is soft. Tenderness: There is no abdominal tenderness. Musculoskeletal: Right lower leg: No edema. Left lower leg: No edema. Neurological: Mental Status: He is alert and oriented to person, place, and time. Sensory: No sensory deficit. Motor: No weakness. ED Course & MDM Clinical Impressions as of 03/23/24 0552 Rectal cancer ([facility]) - Medical Decision Making The following orders were placed this encounter: No orders of the defined types were placed in thisencounter. Medications administered this encounter: Medications - No data to display Patient seen and examined with my attending Sae Alexander is a 73 y.o. male presenting for evaluation of abscess. Patients current medical problem complicated by medical problems including: Rectosigmoid cancer. Differential diagnosis includes but is not limited to: Cancer, UTI, abscess. Ruling out the most morbid conditions drove my clinical assessment. [I reviewed prior records including his note prior to transfer which documented patient was found to have either cancer and abscess adjacent to his rectum. Initial Assessment: Patient hemodynamically stable alert and oriented in no acute distress. Will discuss with colorectal due to concern of possible abscess and re-evaluate. Labs were independently interpreted by me. They are significant for leukocytosis. I discussed management with the following services regarding the patient's case and recommendationsfor disposition: IP CONSULT TO COLORECTAL SURGERY Reassessment: After evaluation by colorectal surgery patient ultimately admitted to their service for further management. Impression: Rectal cancer Disposition: Admission Sunday Lim MD Emergency Medicine - PGY2 EMR Dragon/Printer Floor Covering Assistant disclaimer: Much of this encounter note is an electronic pathology secretary/transcriptionist of spoken language to printed text. Electronic pathology secretary/transcriptionist of spoken language may permit erroneous, or at times, nonsensical words or phrases to be inadvertently transcribed. Although I have reviewed the note for such errors, some may still exist. Please do not hesitate to reach out to me for clarification. ED Prescriptions None Sign Off Checklist Clinical Impression: Complete ED Disposition: Complete - Sunday Lim MD Resident 03/23/24 0603 Cosigned by Caron Gordon MD at 03/23/2024 6:47 AM EDT Associated attestation - Caron Gordon MD - 03/23/2024 6:47 AM EDT I saw and evaluated the patient with the resident/fellow. I discussed the case with the resident/fellow and agree with the findings and plan as documented. * ED Triage Notes - Marichuy Medina RN - 03/23/2024 4:04 AM EDT Pt arrived from OSH via ambulance. Per ems pt presented to osh today with bladder spasms and urinary retention. Pt sent here after OSH discovered a rectal abscess/ mass for further evaluation. GCS 15. documented in this encounter Plan of Treatment Pending Results Name Type Priority Associated Diagnoses Date /Time Transfuse RBC Transfusion Administration Routine 03/29/2024 6:14 PM EDT documented as of this encounter Procedures Procedure Name Priority Date/Time Associated Diagnosis Comments PROCALCITONIN, PLASMA Routine 04/04/2024 4:22 PM EDT CBC W/O DIFFERENTIAL Routine 04/04/2024 4:22 PM EDT PHOSPHORUS, PLASMA Routine 04/04/2024 4: 22 PM EDT MAGNESIUM, PLASMA Routine 04/04/2024 4:2 2 PM EDT BASIC METABOLIC PANEL, PLASMA Routine 04/04/2024 4:22 PM EDT INSERT PERIPHERAL IV Routine 04/04/2024 4:13 PM EDT WOUND OSTOMY EVAL AND TREAT Routine 04/04/2024 9:28 AM EDT CBC W/O DIFFERENTIAL Routine 04/02/2024 1:27 PM EDT PHOSPHORUS, PLASMA Routine 04/02/2024 1: 27 PM EDT MAGNESIUM, PLASMA Routine 04/02/2024 1:2 7 PM EDT BASIC METABOLIC PANEL, PLASMA Routine 04/02/2024 1:27 PM EDT POCT GLUCOSE METER UNSOLICITED RESULTS Routine 04/01/2024 5:54 AM EDT POCT GLUCOSE METER UNSOLICITED RESULTS Routine 04/01/2024 12:01 AM EDT POCT GLUCOSE METER UNSOLICITED RESULTS Routine 03/31/2024 5:20 AM EDT CBC W/O DIFFERENTIAL Routine 03/31/2024 4:43 AM EDT PHOSPHORUS, PLASMA Routine 03/31/2024 4: 43 AM EDT MAGNESIUM, PLASMA Routine 03/31/2024 4:4 3 AM EDT COMPREHENSIVE METABOLIC PANEL, PLASMA Routine 03/31/2024 4:43 AM EDT POCT GLUCOSE METER UNSOLICITED RESULTS Routine 03/30/2024 11:48 PM EDT POCT GLUCOSE METER UNSOLICITED RESULTS Routine 03/30/2024 5:48 PM EDT SURGICAL PATHOLOGY EXAM Routine 03/30/2024 2:19 PM EDT Rectal cancer (CMS/HCC) CREATION, COLOSTOMY, LAPAROSCOPIC 03/30/2024 1:37 PM EDT Rectal cancer (CMS/HCC) Special Needs Skytron Bed, SSI Colon Bundle, Colonoscope, Endocart POCT GLUCOSE METER UNSOLICITED RESULTS Routine 03/30/2024 10:59 AM EDT POCT GLUCOSE METER UNSOLICITED RESULTS Routine 03/30/2024 6:10 AM EDT CBC W/O DIFFERENTIAL Routine 03/30/2024 1:21 AM EDT PHOSPHORUS, PLASMA Routine 03/30/2024 1: 21 AM EDT MAGNESIUM, PLASMA Routine 03/30/2024 1:2 1 AM EDT BASIC METABOLIC PANEL, PLASMA Routine 03/30/2024 1:21 AM EDT POCT GLUCOSE METER UNSOLICITED RESULTS Routine 03/30/2024 12:21 AM EDT POCT GLUCOSE METER UNSOLICITED RESULTS Routine 03/29/2024 5:43 PM EDT PREPARE RBC Routine 03/29/2024 5:14 PM EDT POCT GLUCOSE METER UNSOLICITED RESULTS Routine 03/29/2024 11:30 AM EDT XR CHEST 1 VIEW Routine 03/29/2024 8:05 AM EDT VANCOMYCIN, PEAK, PLASMA Timed 03/29/2024 2:39 AM EDT POCT GLUCOSE METER UNSOLICITED RESULTS Routine 03/29/2024 12:42 AM EDT VANCOMYCIN, TROUGH, PLASMA Timed 03/28/2024 10:53 PM EDT POCT GLUCOSE METER UNSOLICITED RESULTS Routine 03/28/2024 7:44 PM EDT POCT GLUCOSE METER UNSOLICITED RESULTS Routine 03/28/2024 3:39 PM EDT POCT GLUCOSE METER UNSOLICITED RESULTS Routine 03/28/2024 11:31 AM EDT METHICILLIN RESISTANT STAPHYLOCOCCUS AUREUS (MRSA) BY PCR Pending Discharge 03/28/2024 10:03 AM EDT CYSTATIN C Add-On 03/28/2024 6:18 AM EDT CBC W/O DIFFERENTIAL Pending Discharge 03/28/2024 6:18 AM EDT PHOSPHORUS, PLASMA Pending Discharge 03/28/2024 6:18 AM EDT MAGNESIUM, PLASMA Pending Discharge 03/28/2024 6:18 AM EDT BASIC METABOLIC PANEL, PLASMA Pending Discharge 03/28/2024 6:18 AM EDT POCT GLUCOSE METER UNSOLICITED RESULTS Routine 03/28/2024 5:11 AM EDT XR CHEST 1 VIEW Timed 03/28/2024 2:17 AM EDT POCT GLUCOSE METER UNSOLICITED RESULTS Routine 03/27/2024 11:50 PM EDT TRANSFUSE RED BLOOD CELLS Routine 03/27/2024 4:20 PM EDT WOUND OSTOMY EVAL AND TREAT Routine 03/27/2024 2:21 PM EDT TYPE AND SCREEN Routine 03/27/2024 2:18 PM EDT PREPARE RBC Routine 03/27/2024 1:[address] ABDOMEN PELVIS W IV CONTRAST STAT 03/27/2024 12:[address] CHEST W IV CONTRAST STAT 03/27/2024 12:44 PM EDT CLOSTRIDIODES (CLOSTRIDIUM) DIFFICILE,PCR Routine 03/27/2024 11:40 AM EDT LACTATE, VENOUS Routine 03/27/2024 9:09 AM EDT CBC W/O DIFFERENTIAL Routine 03/27/2024 3:20 AM EDT PHOSPHORUS, PLASMA Routine 03/27/2024 3: 20 AM EDT MAGNESIUM, PLASMA Routine 03/27/2024 3:2 0 AM EDT COMPREHENSIVE METABOLIC PANEL, PLASMA Routine 03/27/2024 3:20 AM EDT POCT GLUCOSE METER UNSOLICITED RESULTS Routine 03/26/2024 9:05 PM EDT XR CHEST 1 VIEW STAT 03/26/2024 4:57 PM EDT LACTATE, VENOUS Routine 03/26/2024 3:50 PM EDT POCT GLUCOSE METER UNSOLICITED RESULTS Routine 03/26/2024 3:49 PM EDT EXTRA TUBE LIGHT GREEN TOP Routine 03/26/2024 2:49 PM EDT EXTRA TUBES Routine 03/26/2024 2:49 PM EDT POCT GLUCOSE METER UNSOLICITED RESULTS Routine 03/26/2024 2:27 PM EDT ECG ADULT STAT 03/26/2024 1:45 PM EDT BLOOD CULTURE FUNGAL ID Routine 03/26/2024 1:13 PM EDT BLOOD CULTURE (AEROBIC/ANAEROBIC SET) STAT 03/26/2024 1:13 PM EDT BLOOD CULTURE (AEROBIC/ANAEROBIC SET) STAT 03/26/2024 1:13 PM EDT CBC W/O DIFFERENTIAL STAT 03/26/2024 1:13 PM EDT COMPREHENSIVE METABOLIC PANEL, PLASMA STAT 03/26/2024 1:13 PM EDT CBC W/O DIFFERENTIAL Routine 03/26/2024 3:53 AM EDT PHOSPHORUS, PLASMA Routine 03/26/2024 3: 53 AM EDT MAGNESIUM, PLASMA Routine 03/26/2024 3:5 3 AM EDT BASIC METABOLIC PANEL, PLASMA Routine 03/26/2024 3:53 AM EDT CBC W/O DIFFERENTIAL STAT 03/25/2024 6:37 AM EDT PHOSPHORUS, PLASMA Routine 03/25/2024 6: 37 AM EDT MAGNESIUM, PLASMA Routine 03/25/2024 6:3 7 AM EDT BASIC METABOLIC PANEL, PLASMA Routine 03/25/2024 6:37 AM EDT DIFFICULT CROSSMATCH, PATHOLOGIST INTERPRETATION STAT 03/23/2024 4:49 AM EDT ANTIBODY IDENTIFICATION STAT 03/23/2024 4:49 AM EDT APTT STAT 03/23/2024 4:49 AM EDT PROTHROMBIN TIME(PT) / INR STAT 03/23/2024 4:49 AM EDT CBC WITH AUTO DIFFERENTIAL STAT 03/23/2024 4:49 AM EDT TYPE AND SCREEN STAT 03/23/2024 4:49 AM EDT BLOOD GAS PANEL, VENOUS STAT 03/23/2024 4:49 AM EDT COMPREHENSIVE METABOLIC PANEL, PLASMA STAT 03/23/2024 4:49 AM EDT documented in this encounter Results * (ABNORMAL) Procalcitonin (04/04/2024 4:22 PM EDT) [facility] Procalcitonin, Plasma 0.30(H) <0.09 ng/mL 04/04/2024 5:14 PM EDT [facility]ALTHCARE [facility] Blood Venous blood specimen / Unknown Venipuncture / Unknown 04/04/2024 4:22 PM EDT 04/04/2024 4:35 PM EDT Narrative [facility] - 04/04/2024 5:14 PM EDT Procalcitonin concentrations in healthy individuals are <0.09 ng/mL. Published data support the following interpretive risk assessment: An elevated procalcitonin result does not always indicate sepsis. Various non-infectious conditions are known to increase procalcitonin. Results should be considered in the context of clinical symptoms and other laboratory tests. Procalcitonin >2.0 ng/mL: Concentrations >2.0 ng/mL on the first day of ICU admission are associated with a higher risk of progression to severe sepsis and/or septic shock. The change in PCT over time may help predict 28 day mortality risk. Please consult [email or web address] for more information. Test performed at [facility], [facility]. us Jeremy Cazares MD LAB BLOOD ORDERABLES Final Res ult [facility] [address] [place] [address] * Phosphorus (04/04/2024 4:22 PM EDT) Phosphorus, Plasma 2.6 2.5 - 4.5 mg/dL 04/04/2024 5:14 PM EDT [facility]ALTHCARE LAB Blood Venous blood specimen / Unknown Venipuncture / Unknown 04/04/2024 4:22 PM EDT 04/04/2024 4:35 PM EDT us Jeremy Cazares MD LAB BLOOD ORDERABLES Final Res ult Performing Organization Address City/[facility]/ZIP Co de Phone Number [facility]ALTHCARE [facility] [address] [place] [address] * (ABNORMAL) Magnesium (04/04/2024 4:22 PM EDT) Magnesium, Plasma 1.6(L) 1.9 - 2.4 mg/dL 04/04/2024 5:14 PM EDT [facility]ALTHC[facility] Blood Venous blood specimen / Unknown Venipuncture / Unknown 04/04/2024 4:22 PM EDT 04/04/2024 4:35 PM EDT us Jeremy Cazares MD LAB BLOOD ORDERABLES Final Res ult Performing Organization Address City/[facility]/ZIP Co de Phone Number [facility] [address] [place] [address] * (ABNORMAL) Basic metabolic panel (04/04/2024 4:22 PM EDT) Glucose, Plasma 114(H) 74 - 99 mg/dL 04/04/2024 5:14 PM EDT [facility]ALTHCARE [facility] BUN, Plasma 9 8 - 23 mg/dL 04/04/2024 5:14 PM EDT HEALTHCARE LAB Creatinine, Plasma 0.65(L) 0.80 - 1.30 mg/dL 04/04/2024 5:14 PM EDT [facility] BUN/Creatinine Ratio 14 04/04/2024 5:14 PM EDT [facility]ALTH[facility] Sodium, Plasma 136 136 - 145 mmol/L 04/04/2024 5:14 PM EDT [facility] Potassium, Plasma 3.8 3.7 - 4.8 mmol/L 04/04/2024 5:14 PM EDT [facility] Chloride, Plasma 104 97 - 107 mmol/L 04/04/2024 5:14 PM EDT [facility] CO2, Plasma 24 22 - 29 mmol/L 04/04/2024 5:14 PM EDT [facility] Anion Gap 8 6 - 16 mmol/L 04/04/2024 5:14 PM EDT [facility] Total Calcium, Plasma 8.6(L) 8.9 - 10.2 mg/dL 04/04/2024 5:14 PM ED[address] [facility] eGFRcr 100.7 mL/min/1.7 3m*2 04/04/2024 5:14 PM EDT [facility] Comment:Reported eGFRcr in m L/min/1.73m2 is based the CKD-EPI 2020 equation that does not use a race coefficient. Blood Venous blood specimen / Unknown Venipuncture / Unknown 04/04/2024 4:22 PM EDT 04/04/2024 4:35 PM EDT us Jeremy Cazares MD LAB BLOOD ORDERABLES Final Res ult [facility] [address] [place] [address] * (ABNORMAL) CBC W/O Differential (04/04/2024 4:22 PM EDT) WBC Count 9.75 3.70 - 10.30 10*3/uL LAB HEMATOLOGY METHOD 04/04/2024 5:05 PM EDT [facility] RBC Count 5.06 4.60 - 6.10 10*6/uL LAB HEMATOLOGY METHOD 04/04/2024 5:05 PM EDT [facility] HGB 12.0(L) 13.7 - 17.5 g/dL LAB HEMATOLOGY METHOD 04/04/2024 5:05 PM EDT [facility] HCT 38.5(L) 40.0 - 51.0 % LAB HEMATOLOGY METHOD 04/04/2024 5:05 PM EDT [facility] Platelet Count 286 155 - 369 10*3/uL LAB HEMATOLOGY METHOD 04/04/2024 5:05 PM EDT [facility] MCV 76(L) 79 - 98 fL LAB HEMATOLOGY METHOD 04/04/2024 5:05 PM EDT [facility] MCH 23.7(L) 26.0 - 32.0 pg LAB HEMATOLOGY METHOD 04/04/2024 5:05 PM EDT [facility] MCHC 31.2 30.7 - 35.5 g/dL LAB HEMATOLOGY METHOD 04/04/2024 5:05 PM EDT [facility] RDW 20.9(H) 11.5 - 14.5 % LAB HEMATOLOGY METHOD 04/04/2024 5:05 PM EDT [facility] MPV 8.4(L) 8.8 - 12.5 fL LAB HEMATOLOGY METHOD 04/04/2024 5:05 PM EDT [facility] nRBC 0.0 <=0.0 per 100 WBCs LAB HEMATOLOGY METHOD 04/04/2024 5:05 PM EDT [facility] Blood Venous blood specimen / Unknown Venipuncture / Unknown 04/04/2024 4:22 PM EDT 04/04/2024 4:47 PM EDT Jeremy Cazares MD LAB BLOOD ORDERABLES Final Res ult Performing Organization Address City/State/[facility] Co de Phone Number [facility] [address] [place] [address] * PERIPHERAL IV (SMARTFORM LINK) (04/04/2024 4:13 PM EDT) Narrative Thalia Mejia RN - 04/04/2024 4:13 PM EDT Thalia Mejia RN ? 04/04/2024 ??4:13 PM Insert peripheral IV Performed by: Thalia Mejia RN Authorized by: Jeremy Cazares MD ?? Hand hygiene: Hand hygiene performed prior to insertion ?? Inserted using aseptic techniques: Yes ?? Preparation: ??Skin prepped with chg Orientation: ??Right and upper Location: ??Arm Catheter placed: ??Peripheral IV Catheter size: ??20g/1.88in Line Technique: ??Ultrasound Guidance Number of attempts: ??2 IV flushes: ??Without difficulty and positive blood return noted and IV luer locked Patient tolerance: ??Patient tolerated the procedure well, age appropriate response and there were no complications IV site covered with: ??Transparent semipermeable dressing Education provided to: ??Patient Jeremy Cazares MD IV THERAPY ORDERABLES Final Re sult * (ABNORMAL) Basic Metabolic Panel, Plasma (04/02/2024 1:27 PM EDT) Glucose, Plasma 98 74 - 99 mg/dL 04/02/2024 2:50 PM EDT [facility] BUN, Plasma 10 8 - 23 mg/dL 04/02/2024 2:50 PM EDT [facility] Creatinine, Plasma 0.61(L) 0.80 - 1.30 mg/dL 04/02/2024 2:50 PM EDT [facility] BUN/Creatinine Ratio 16 04/02/2024 2:50 [address] [facility] Sodium, Plasma 136 136 - 145 mmol/L 04/02/2024 2:[address] [facility] Potassium, Plasma 3.7 3.7 - 4.8 mmol/L 04/02/2024 2:50 [address] [facility] Chloride, Plasma 101 97 - 107 mmol/L 04/02/2024 2:50 [address] [facility] CO2, Plasma 20(L) 22 - 29 mmol/L 04/02/2024 2:50 PM ED[address] [facility] Anion Gap 15 6 - 16 mmol/L 04/02/2024 2:50 [address] [facility] Total Calcium, Plasma 8.5(L) 8.9 - 10.2 mg/dL 04/02/2024 2:[address] [facility] eGFRcr 102.7 mL/min/1.7 3m*2 04/02/2024 2:50 [address] [facility] Comment:Reported eGFRcr in m L/min/1.73m2 is based the CKD-EPI 2020 equation that does not use a race coefficient. Blood Venous blood specimen / Unknown Venipuncture / Unknown 04/02/2024 1:27 PM EDT 04/02/2024 1:40 PM EDT us Jeremy Cazares MD LAB BLOOD ORDERABLES Final Res ult [facility] [address] [place] [id number] * (ABNORMAL) Phosphorus, Plasma (04/02/2024 1:27 PM EDT) Pathologist [facility] [place] Phosphorus, Plasma 2.3(L) 2.5 - 4.5 mg/dL 04/02/2024 2:[address] [facility] Blood Venous blood specimen / Unknown Venipuncture / Unknown 04/02/2024 1:27 PM EDT 04/02/2024 1:40 PM EDT us Jeremy Cazares MD LAB BLOOD ORDERABLES Final Res ult Performing Organization Address [facility] Co de Phone Number [facility] [address] [place] [address] * (ABNORMAL) Magnesium, Plasma (04/02/2024 1:27 PM EDT) Pathologist [facility] [place] Magnesium, Plasma 1.7(L) 1.9 - 2.4 mg/dL 04/02/2024 2:[address] [facility] Blood Venous blood specimen / Unknown Venipuncture / Unknown 04/02/2024 1:27 PM EDT 04/02/2024 1:40 PM EDT us Jeremy Cazares MD LAB BLOOD ORDERABLES Final Res ult Performing Organization Address [facility] de Phone Number [facility] [address] [place] [address] * (ABNORMAL) CBC W/O Differential (04/02/2024 1:27 PM EDT) [facility] WBC Count 17.31(H) 3.70 - 10.30 10*3/uL LAB HEMATOLOGY METHOD 04/02/2024 2:26 [address] [facility] RBC Count 5.79 4.60 - 6.10 10*6/uL LAB HEMATOLOGY METHOD 04/02/2024 2:[address] [facility] HGB 13.7 13.7 - 17.5 g/dL LAB HEMATOLOGY METHOD 04/02/2024 2:[address] [facility] HCT 43.5 40.0 - 51.0 % LAB HEMATOLOGY METHOD 04/02/2024 2:[address] [facility] Platelet Count 454(H) 155 - 369 10*3/uL LAB HEMATOLOGY METHOD 04/02/2024 2:[address] [facility] MCV 75(L) 79 - 98 fL LAB HEMATOLOGY METHOD 04/02/2024 2:[address] [facility] MCH 23.7(L) 26.0 - 32.0 pg LAB HEMATOLOGY METHOD 04/02/2024 2:[address] [facility] MCHC 31.5 30.7 - 35.5 g/dL LAB HEMATOLOGY METHOD 04/02/2024 2:[address] [facility] RDW 20.5(H) 11.5 - 14.5 % LAB HEMATOLOGY METHOD 04/02/2024 2:[address] [facility] MPV 8.4(L) 8.8 - 12.5 fL LAB HEMATOLOGY METHOD 04/02/2024 2:[address] [facility] nRBC 0.0 <=0.0 per 100 WBCs LAB HEMATOLOGY METHOD 04/02/2024 2:[address] [facility] Blood Venous blood specimen / Unknown Venipuncture / Unknown 04/02/2024 1:27 PM EDT 04/02/2024 1:40 PM EDT us Jeremy Cazares MD LAB BLOOD ORDERABLES Final Res ult [facility] [address] [place] [address] * POCT glucose meter (04/01/2024 5:54 AM EDT) [facility] Signature POCT Glucose 92 74 - 99 mg/dL 04/01/2024 5:56 AM EDT [facility] Comment:Accuracy of a glucos e result obtained from a capillary whole blood specimen relies upon adequate, non-compromised capillary blood flow. If the capillary glucose result is not consistent with the patient's clinical signs and symptoms, glucose testing should be repeated with either an arterial or venous sample on the glucometer or sent to the main labortory for testing. Comment 04/01/2024 5:56 AM EDT [facility] Filtration Supervisor ID Terri Crum 024 5:56 AM EDT [facility] Device ID [id number] 04/01/2024 5:56 AM EDT [facility] Specimen Type POC Capillary 04/01/2024 5:56 AM EDT [facility] Blood Capillary blood specimen / Unknown 04/01/2024 5:54 AM EDT 04/01/2024 5:56 AM EDT us Jeremy Cazares MD LAB POINT OF CARE TE ST DOCKED DEVICE UNSOLICITED RESULTS Final Result Performing Organization Address City/[facility] Co de Phone Number [facility] [address] [place] [address] * POCT glucose meter (04/01/2024 12:01 AM EDT) POCT Glucose 97 74 - 99 mg/dL 04/01/2024 12:01 AM EDT [facility] Comment:Accuracy of a glucos e result obtained from a capillary whole blood specimen relies upon adequate, non-compromised capillary blood flow. If the capillary glucose result is not consistent with the patient's clinical signs and symptoms, glucose testing should be repeated with either an arterial or venous sample on the glucometer or sent to the main labortory for testing. Comment 04/01/2024 12:01 AM EDT [facility] Filtration Supervisor ID Terri Crum 024 12:01 AM EDT [facility] Device ID [id number] 04/01/2024 12:01 AM EDT [facility] Specimen Type POC Capillary 04/01/2024 12:01 AM EDT [facility] Blood Capillary blood specimen / Unknown 04/01/2024 12:01 AM EDT 04/01/2024 12:01 AM EDT us Jeremy Cazares MD LAB POINT OF CARE TE ST DOCKED DEVICE UNSOLICITED RESULTS Final Result Performing Organization Address City/[facility] Co de Phone Number [facility] [address] [place] [address] * (ABNORMAL) POCT glucose meter (03/31/2024 5:20 AM EDT) POCT Glucose 123(H) 74 - 99 mg/dL 03/31/2024 5:21 AM EDT [facility] Comment:Accuracy of a glucos e result obtained from a capillary whole blood specimen relies upon adequate, non-compromised capillary blood flow. If the capillary glucose result is not consistent with the patient's clinical signs and symptoms, glucose testing should be repeated with either an arterial or venous sample on the glucometer or sent to the main labortory for testing. Comment 03/31/2024 5:21 AM EDT [facility] Filtration Supervisor ID Jermaine Khan 024 5:21 AM EDT [facility] Device ID [id number] 03/31/2024 5:21 AM EDT [facility] Specimen Type POC Capillary 03/31/2024 5:21 AM EDT [facility] Blood Capillary blood specimen / Unknown 03/31/2024 5:20 AM EDT 03/31/2024 5:21 AM EDT us Jeremy Cazares MD LAB POINT OF CARE TE ST DOCKED DEVICE UNSOLICITED RESULTS Final Result Performing Organization Address [facility] Co de Phone Number [facility] [address] [place] [address] * Phosphorus (03/31/2024 4:43 AM EDT) Phosphorus, Plasma 3.1 2.5 - 4.5 mg/dL 03/31/2024 5:24 AM EDT [facility] Blood Venous blood specimen / Unknown Venipuncture / Unknown 03/31/2024 4:43 AM EDT 03/31/2024 4:54 AM EDT us Jeremy Cazares MD LAB BLOOD ORDERABLES Final Res ult [facility] [address] [place] [address] * Magnesium (03/31/2024 4:43 AM EDT) Magnesium, Plasma 1.9 1.9 - 2.4 mg/dL 03/31/2024 5:24 AM EDT [facility] Blood Venous blood specimen / Unknown Venipuncture / Unknown 03/31/2024 4:43 AM EDT 03/31/2024 4:54 AM EDT us Jeremy Cazares MD LAB BLOOD ORDERABLES Final Res ult [facility] [address] [place] [address] * (ABNORMAL) Comprehensive metabolic panel (03/31/2024 4:43 AM EDT) Glucose, Plasma 128(H) 74 - 99 mg/dL 03/31/2024 5:24 AM EDT [facility] BUN, Plasma 6(L) 8 - 23 mg/dL 03/31/2024 5:24 AM EDT [facility] Creatinine, Plasma 0.58(L) 0.80 - 1.30 mg/dL 03/31/2024 5:24 AM EDT [facility] BUN/Creatinine Ratio 10 03/31/2024 5:24 AM EDT [facility] Sodium, Plasma 138 136 - 145 mmol/L 03/31/2024 5:24 AM EDT [facility] Potassium, Plasma 4.5 3.7 - 4.8 mmol/L 03/31/2024 5:24 [address] EDT [facility] Chloride, Plasma 106 97 - 107 mmol/L 03/31/2024 5:24 AM EDT [facility] CO2, Plasma 22 22 - 29 mmol/L 03/31/2024 5:24 [address] EDT [facility] Anion Gap 10 6 - 16 mmol/L 03/31/2024 5:24 [address] EDT [facility] Total Calcium, Plasma 8.4(L) 8.9 - 10.2 mg/dL 03/31/2024 5:[address] [facility] Total Protein 5.5(L) 6.3 - 7.9 g/dL 03/31/2024 5:24 [address] EDT [facility] Albumin, Plasma 2.4(L) 3.5 - 5.2 g/dL 03/31/2024 5:24 [address] ED[address] [facility] AST, Plasma 14 10 - 50 U/L 03/31/2024 5:24 [address] ED[address] [facility] ALT, Plasma 11 10 - 50 U/L 03/31/2024 5:24 [address] EDT [facility] Alkaline Phosphatase, Plasma 235(H) 40 - 115 U/L 03/31/2024 5:24 [address] EDT [facility] Total Bilirubin, Plasma 0.5 0.2 - 1.1 mg/dL 03/31/2024 5:[address] ED[address] [facility] eGFRcr 104.3 mL/min/1.7 3m*2 03/31/2024 5:[address] ED[address] [facility] Comment:Reported eGFRcr in m L/min/1.73m2 is based the CKD-EPI 2020 equation that does not use a race coefficient. Blood Venous blood specimen / Unknown Venipuncture / Unknown 03/31/2024 4:43 AM EDT 03/31/2024 4:54 AM EDT us Jeremy Cazares MD LAB BLOOD ORDERABLES Final Res ult [facility] [address] [place], [place] [id number] * (ABNORMAL) CBC W/O Differential (03/31/2024 4:43 AM EDT) WBC Count 11.68(H) 3.70 - 10.30 10*3/uL LAB HEMATOLOGY METHOD 03/31/2024 5:09 [address] ED[address] [facility] RBC Count 5.10 4.60 - 6.10 10*6/uL LAB HEMATOLOGY METHOD 03/31/2024 5:09 AM EDT [facility] HGB 11.9(L) 13.7 - 17.5 g/dL LAB HEMATOLOGY METHOD 03/31/2024 5:09 AM EDT [facility] HCT 38.7(L) 40.0 - 51.0 % LAB HEMATOLOGY METHOD 03/31/2024 5:09 [address] [facility] Platelet Count 324 155 - 369 10*3/uL LAB HEMATOLOGY METHOD 03/31/2024 5:09 [address] ED[address] [facility] MCV 76(L) 79 - 98 fL LAB HEMATOLOGY METHOD 03/31/2024 5:09 [address] EDT [facility] MCH 23.3(L) 26.0 - 32.0 pg LAB HEMATOLOGY METHOD 03/31/2024 5:09 [address] ED[address] [facility] MCHC 30.7 30.7 - 35.5 g/dL LAB HEMATOLOGY METHOD 03/31/2024 5:09 AM EDT [facility] RDW 18.7(H) 11.5 - 14.5 % LAB HEMATOLOGY METHOD 03/31/2024 5:09 AM EDT [facility] MPV 9.0 8.8 - 12.5 fL LAB HEMATOLOGY METHOD 03/31/2024 5:09 [address] [facility] nRBC 0.0 <=0.0 per 100 WBCs LAB HEMATOLOGY METHOD 03/31/2024 5:09 [address] ED[address] [facility] Blood Venous blood specimen / Unknown Venipuncture / Unknown 03/31/2024 4:43 AM EDT 03/31/2024 4:57 AM EDT us Jeremy Cazares MD LAB BLOOD ORDERABLES Final Res ult Performing Organization Address [facility] Co de Phone Number [facility] [address] [place] [address] * (ABNORMAL) POCT glucose meter (03/30/2024 11:48 PM EDT) POCT Glucose 158(H) 74 - 99 mg/dL 03/30/2024 11:50 PM EDT [facility] Comment:Accuracy of a glucos e result obtained from a capillary whole blood specimen relies upon adequate, non-compromised capillary blood flow. If the capillary glucose result is not consistent with the patient's clinical signs and symptoms, glucose testing should be repeated with either an arterial or venous sample on the glucometer or sent to the main labortory for testing. Comment 03/30/2024 11:50 PM EDT [facility] Filtration Supervisor ID Jermaine Khan 024 11:50 PM EDT [facility] Device ID [id number] 03/30/2024 11:50 PM EDT [facility] Specimen Type POC Capillary 03/30/2024 11:[address] [facility] Blood Capillary blood specimen / Unknown 03/30/2024 11:48 PM EDT 03/30/2024 11:50 PM EDT us Jeremy Cazares MD LAB POINT OF CARE TE ST DOCKED DEVICE UNSOLICITED RESULTS Final Result Performing Organization Address City/[facility]/ZIP Co de Phone Number [facility] [address] [place] [address] * (ABNORMAL) POCT glucose meter (03/30/2024 5:48 PM EDT) [facility] POCT Glucose 137(H) 74 - 99 mg/dL 03/30/2024 5:51 PM EDT [facility] Comment:Accuracy of a glucos e result obtained from a capillary whole blood specimen relies upon adequate, non-compromised capillary blood flow. If the capillary glucose result is not consistent with the patient's clinical signs and symptoms, glucose testing should be repeated with either an arterial or venous sample on the glucometer or sent to the main labortory for testing. Comment 03/30/2024 5:51 PM EDT [facility] Filtration Supervisor ID Kenneth Mcdaniels 5:51 PM EDT [facility] Device ID [id number] 03/30/2024 5:51 PM EDT [facility] Specimen Type POC Capillary 03/30/2024 5:51 PM EDT [facility] Blood Capillary blood specimen / Unknown 03/30/2024 5:48 PM EDT 03/30/2024 5:51 PM EDT us Jeremy Cazares MD LAB POINT OF CARE TE ST DOCKED DEVICE UNSOLICITED RESULTS Final Result Performing Organization Address City/State/[facility] Co de Phone Number [facility] [address] [place] [address] * Surgical Pathology Exam (03/30/2024 2:19 PM EDT) [facility] Case Report Surgical Pathology ?Case: [id number] ? Authorizing Provider: ??Jeremy Cazares MD ?Collected: ? 03/30/2024 1419 ? Ordering Location: ? [facility] ? Received: ?03/30/2024 1546 ? Pathologist: ? Travis Crandall DO ? Specimens: ?? A) - Other (specify site), rectal biopsy ? B) - Other (specify site), omentum ? 4 2:34 PM EDT [facility] Final Diagnosis A. RECTUM, BIOPSY: - MODERATELY DIFFERENTIATED ADENOCARCINOMA, RECURRENT (HISTORY OF COLORECTAL ADENOCARCINOMA IN 2019). B. OMENTUM, EXCISION: - NEGATIVE FOR TUMOR. 4 2:34 PM EDT [facility] Clinical Information Rectal cancer (CMS/HCC) [C20] 4 2:34 PM EDT [facility] Gross Description A. RECTAL BIOPSY Received in formalin labeled ? rectal biopsy? , are 5 dunham-red soft tissue fragments measuring 0.2-0.5 cm in greatest dimension. Specimen submitted entirely in cassette A1. Juhi Lopez B. OMENTUM Received in formalin labeled ? omentum? , are 2 yellow/red fragments of thin, glistening adipose tissue measuring 11.5 x 4.9 x 1.5 cm in aggregate. Sectioning reveals a grossly unremarkable yellow, fatty cut surface. Plaster Foreman sections submitted in cassette B1. Additional sections submitted in cassettes B2 and B3 on 03/31/24. Juhi Lopez 4 2:34 PM EDT [facility] Intradepartmental Consultation with Agreement Dr. Plascencia 2:[address] [facility] Note: A resident was involved in the service. I attest I examined the relevant preparations for the specimens and confirmed the diagnosis or interpretation. 4 2:[address] [facility] Tissue Topography unknown / Unknown 03/30/2024 2:19 PM EDT 03/30/2024 3:46 PM EDT Comment:Pre-op diagnosis: Rectal cancer (CMS/HCC) [C20] Tissue specimen (specimen) Topography unknown / Unknown 03/30/2024 2:43 PM EDT 03/30/2024 3:46 PM EDT Comment:Pre-op diagnosis: Rectal cancer (CMS/HCC) [C20] us Jeremy Cazares MD LAB PATHOLOGY ORDERABLES Final Result Performing Organization Address City/State/[facility] Co de Phone Number [facility] [address] [place] [address] * (ABNORMAL) POCT glucose meter (03/30/2024 10:59 AM EDT) POCT Glucose 105(H) 74 - 99 mg/dL 03/30/2024 12:[address] [facility] Comment:Accuracy of a glucos e result obtained from a capillary whole blood specimen relies upon adequate, non-compromised capillary blood flow. If the capillary glucose result is not consistent with the patient's clinical signs and symptoms, glucose testing should be repeated with either an arterial or venous sample on the glucometer or sent to the main labortory for testing. Comment 03/30/2024 12:[address] [facility] Filtration Supervisor ID Shilpi Anna 024 12:07 PM EDT [facility] Device ID [id number] 03/30/2024 12:[address] [facility] Specimen Type POC Capillary 03/30/2024 12:[address] [facility] Blood Capillary blood specimen / Unknown 03/30/2024 10:59 AM EDT 03/30/2024 12:07 PM EDT us Jeremy Cazares MD LAB POINT OF CARE TE ST DOCKED DEVICE UNSOLICITED RESULTS Final Result Performing Organization Address City/[facility]/ZIP Co de Phone Number [facility] [address] [place] [address] * (ABNORMAL) POCT glucose meter (03/30/2024 6:10 AM EDT) Pathologist [facility] [place] POCT Glucose 109(H) 74 - 99 mg/dL 03/30/2024 6:14 AM EDT [facility] Comment:Accuracy of a glucos e result obtained from a capillary whole blood specimen relies upon adequate, non-compromised capillary blood flow. If the capillary glucose result is not consistent with the patient's clinical signs and symptoms, glucose testing should be repeated with either an arterial or venous sample on the glucometer or sent to the main labortory for testing. Comment 03/30/2024 6:14 AM EDT [facility] Filtration Supervisor ID Som Benito 03/30/2024 6:14 AM EDT [facility] Device ID [id number] 03/30/2024 6:14 AM EDT [facility] Specimen Type POC Capillary 03/30/2024 6:14 [address] ED[address] [facility] Blood Capillary blood specimen / Unknown 03/30/2024 6:10 AM EDT 03/30/2024 6:14 AM EDT us Jeremy Cazares MD LAB POINT OF CARE TE ST DOCKED DEVICE UNSOLICITED RESULTS Final Result Performing Organization Address [facility] Co de Phone Number [facility] [address] [place] [address] * (ABNORMAL) Phosphorus (03/30/2024 1:21 AM EDT) Pathologist [facility] Phosphorus, Plasma 2.0(L) 2.5 - 4.5 mg/dL 03/30/2024 2:20 AM EDT [facility] Blood Venous blood specimen / Unknown Venipuncture / Unknown 03/30/2024 1:21 AM EDT 03/30/2024 1:50 AM EDT us Jeremy Cazares MD LAB BLOOD ORDERABLES Final Res ult [facility] [address] [place] [address] * (ABNORMAL) Magnesium (03/30/2024 1:21 AM EDT) Magnesium, Plasma 1.6(L) 1.9 - 2.4 mg/dL 03/30/2024 2:[address] [facility] Blood Venous blood specimen / Unknown Venipuncture / Unknown 03/30/2024 1:21 AM EDT 03/30/2024 1:50 AM EDT us Jeremy Cazares MD LAB BLOOD ORDERABLES Final Res ult [facility] [address] [place] [address] * (ABNORMAL) Basic metabolic panel (03/30/2024 1:21 AM EDT) Glucose, Plasma 95 74 - 99 mg/dL 03/30/2024 2:[address] [facility] BUN, Plasma 6(L) 8 - 23 mg/dL 03/30/2024 2:[address] [facility] Creatinine, Plasma 0.52(L) 0.80 - 1.30 mg/dL 03/30/2024 2:[address] [facility] BUN/Creatinine Ratio 12 03/30/2024 2:[address] [facility] Sodium, Plasma 137 136 - 145 mmol/L 03/30/2024 2:[address] [facility] Potassium, Plasma 3.6(L) 3.7 - 4.8 mmol/L 03/30/2024 2:[address] [facility] Chloride, Plasma 106 97 - 107 mmol/L 03/30/2024 2:[address] [facility] CO2, Plasma 21(L) 22 - 29 mmol/L 03/30/2024 2:[address] [facility] Anion Gap 10 6 - 16 mmol/L 03/30/2024 2:[address] [facility] Total Calcium, Plasma 7.8(L) 8.9 - 10.2 mg/dL 03/30/2024 2:[address] [facility] eGFRcr 107.8 mL/min/1.7 3m*2 03/30/2024 2:[address] [facility] Comment:Reported eGFRcr in m L/min/1.73m2 is based the CKD-EPI 2020 equation that does not use a race coefficient. Blood Venous blood specimen / Unknown Venipuncture / Unknown 03/30/2024 1:21 AM EDT 03/30/2024 1:50 AM EDT us Jeremy Cazares MD LAB BLOOD ORDERABLES Final Res ult [facility] [address] [place] [address] * (ABNORMAL) CBC W/O Differential (03/30/2024 1:21 AM EDT) WBC Count 11.59(H) 3.70 - 10.30 10*3/uL LAB HEMATOLOGY METHOD 03/30/2024 1:58 AM EDT [facility] RBC Count 4.42(L) 4.60 - 6.10 10*6/uL LAB HEMATOLOGY METHOD 03/30/2024 1:58 AM EDT [facility] HGB 10.3(L) 13.7 - 17.5 g/dL LAB HEMATOLOGY METHOD 03/30/2024 1:58 AM EDT [facility] HCT 33.2(L) 40.0 - 51.0 % LAB HEMATOLOGY METHOD 03/30/2024 1:58 [address] EDT [facility] Platelet Count 245 155 - 369 10*3/uL LAB HEMATOLOGY METHOD 03/30/2024 1:58 [address] EDT [facility] MCV 75(L) 79 - 98 fL LAB HEMATOLOGY METHOD 03/30/2024 1:58 [address] EDT [facility] MCH 23.3(L) 26.0 - 32.0 pg LAB HEMATOLOGY METHOD 03/30/2024 1:58 [address] EDT [facility] MCHC 31.0 30.7 - 35.5 g/dL LAB HEMATOLOGY METHOD 03/30/2024 1:58 [address] EDT [facility] RDW 18.2(H) 11.5 - 14.5 % LAB HEMATOLOGY METHOD 03/30/2024 1:58 [address] EDT [facility] MPV 9.3 8.8 - 12.5 fL LAB HEMATOLOGY METHOD 03/30/2024 1:[address] [facility] nRBC 0.0 <=0.0 per 100 WBCs LAB HEMATOLOGY METHOD 03/30/2024 1:58 [address] EDT [facility] Blood Venous blood specimen / Unknown Venipuncture / Unknown 03/30/2024 1:21 AM EDT 03/30/2024 1:50 AM EDT us Jeremy Cazares MD LAB BLOOD ORDERABLES Final Res ult Performing Organization Address [facility] Co de Phone Number [facility] [address] [place] [address] * (ABNORMAL) POCT glucose meter (03/30/2024 12:21 AM EDT) [facility] POCT Glucose 108(H) 74 - 99 mg/dL 03/30/2024 12:23 AM EDT [facility] Comment:Accuracy of a glucos e result obtained from a capillary whole blood specimen relies upon adequate, non-compromised capillary blood flow. If the capillary glucose result is not consistent with the patient's clinical signs and symptoms, glucose testing should be repeated with either an arterial or venous sample on the glucometer or sent to the main labortory for testing. Comment 03/30/2024 12:23 AM EDT [facility] Filtration Supervisor ID Sammi Hester 12:23 AM EDT [facility] Device ID [id number] 03/30/2024 12:[address] EDT [facility] Specimen Type POC Capillary 03/30/2024 12:[address] [facility] Blood Capillary blood specimen / Unknown 03/30/2024 12:21 AM EDT 03/30/2024 12:23 AM EDT us Jeremy Cazares MD LAB POINT OF CARE TE ST DOCKED DEVICE UNSOLICITED RESULTS Final Result Performing Organization Address City/[facility] Co de Phone Number [facility] [address] [place] [address] * (ABNORMAL) POCT glucose meter (03/29/2024 5:43 PM EDT) POCT Glucose 110(H) 74 - 99 mg/dL 03/29/2024 5:45 PM EDT [facility] Comment:Accuracy of a glucos e result obtained from a capillary whole blood specimen relies upon adequate, non-compromised capillary blood flow. If the capillary glucose result is not consistent with the patient's clinical signs and symptoms, glucose testing should be repeated with either an arterial or venous sample on the glucometer or sent to the main labortory for testing. Comment 03/29/2024 5:45 PM EDT [facility] Filtration Supervisor ID Kenneth Mcdaniels 5:45 PM EDT [facility]ALTH[facility]ARE LAB Device ID [id number] 03/29/2024 5:45 PM EDT [facility]ALTH[facility]ARE LAB Specimen Type POC Capillary 03/29/2024 5:45 PM EDT [facility] Blood Capillary blood specimen / Unknown 03/29/2024 5:43 PM EDT 03/29/2024 5:45 PM EDT Jeremy Cazares MD LAB POINT OF CARE TE ST DOCKED DEVICE UNSOLICITED RESULTS Final Result Performing Organization Address City/[facility] Co de Phone Number HEALTHCARE LAB [address] [place] [address] * Prepare Leukocyte Reduced RBC: 1 Units (03/29/2024 5:14 PM EDT) [facility] Product Code [id number] BLOO D BANK Dispense Status Transfused BLOOD BANK Blood Expiration Date [id number] BLOOD BANK Unit Number [id number] CH B LOOD BANK Product Blood Type 6200 BLOOD BANK Blood Type A+ BLOOD BANK Crossmatch Compatible BLOOD BANK Other us Jeremy Cazares MD BLOOD BANK PRODUCT ORDERABLES Final Result Performing Organization Address [facility] de Phone Number BLOOD BANK [address] [place] [address] * (ABNORMAL) POCT glucose meter (03/29/2024 11:30 AM EDT) [facility] POCT Glucose 116(H) 74 - 99 mg/dL 03/29/2024 11:45 AM EDT [facility]ALTH[facility]ARE [facility] Comment:Accuracy of a glucos e result obtained from a capillary whole blood specimen relies upon adequate, non-compromised capillary blood flow. If the capillary glucose result is not consistent with the patient's clinical signs and symptoms, glucose testing should be repeated with either an arterial or venous sample on the glucometer or sent to the main labortory for testing. Comment 03/29/2024 11:45 AM EDT HEALTHCARE LAB Filtration Supervisor ID Kenneth Mcdaniels 11:45 AM EDT HEALTHCARE LAB Device ID [id number] 03/29/2024 11:45 AM EDT [facility]ALTHCARE LAB Specimen Type POC Capillary 03/29/2024 11:45 AM EDT HEALTHCARE LAB Blood Capillary blood specimen / Unknown 03/29/2024 11:30 AM EDT 03/29/2024 11:45 AM EDT Jeremy Cazares MD LAB POINT OF CARE TE ST DOCKED DEVICE UNSOLICITED RESULTS Final Result Performing Organization Address City/State/[facility] de Phone Number HEALTHCARE LAB [address] [place] [address] * XR Chest 1 View (03/29/2024 8:05 AM EDT) Anatomical Region Laterality Modality Chest Digital Radiogra phy Impressions 03/29/2024 2:07 PM EDT Increased left basal atelectasis. CRITICAL RESULT: ?? No. COMMUNICATION: Per this written report. Drafted by Steven Mitchell MD on 03/29/2024 2:05 PM Final report signed by Steven Mitchell MD on 03/29/2024 2:07 PM Narrative 03/29/2024 2:07 PM EDT CLINICAL INDICATION: Evaluate lung hannon TECHNIQUE: XR CHEST 1 VIEW COMPARISON: March 28, 2024 FINDINGS: Stable cardiac and mediastinal silhouettes. Increased left basal atelectasis. Unchanged aeration of the right lung. No pneumothorax. Lordotic projection. Procedure Note Steven Mitchell MD - 03/29/2024 CLINICAL INDICATION: Evaluate lung hannon TECHNIQUE: XR CHEST 1 VIEW COMPARISON: March 28, 2024 FINDINGS: Stable cardiac and mediastinal silhouettes. Increased left basalatelectasis. Unchanged aeration of the right lung. No pneumothorax.Lordotic projection. IMPRESSION: Increased left basal atelectasis. CRITICAL RESULT: No. COMMUNICATION: Per this written report. Drafted by Steven Mitchell MD on 03/29/2024 2:05 PM Final report signed by Steven Mitchell MD on 03/29/2024 2:07 PM us Jeermy Cazares MD IMG XR PROCEDURES Final Result * (ABNORMAL) Vancomycin, Peak, Plasma Please draw ~2 hours after 2300 dose of vancomycin finishes infusing. Consider obtaining level via peripheral stick. If peripheral stick is not feasible, please ensure that line is flushed well prior to drawing level. Than... (03/29/2024 2:39 AM EDT) Pathologist [facility] [place] Vancomycin, Peak, Plasma 17.6(L) 20.0 - 40.0 ug/mL 03/29/2024 3:20 AM EDT [facility] Blood Venous blood specimen / Unknown Venipuncture / Unknown 03/29/2024 2:39 AM EDT 03/29/2024 2:49 AM EDT Narrative [facility] - 03/29/2024 3:20 AM EDT Therapeutic Peak level: ? 20-40ug/mL Supra-therapeutic Peak level: ??>40 ug/mL us Jeremy Cazares MD LAB BLOOD ORDERABLES Final Res ult [facility] [address] [place] [id number] * (ABNORMAL) POCT glucose meter (03/29/2024 12:42 AM EDT) Pathologist [facility] [place] POCT Glucose 117(H) 74 - 99 mg/dL 03/29/2024 12:47 AM EDT [facility] Comment:Accuracy of a glucos e result obtained from a capillary whole blood specimen relies upon adequate, non-compromised capillary blood flow. If the capillary glucose result is not consistent with the patient's clinical signs and symptoms, glucose testing should be repeated with either an arterial or venous sample on the glucometer or sent to the main labortory for testing. Comment 03/29/2024 12:47 AM EDT HEALTHCARE LAB Filtration Supervisor ID Dian Bruce 03/29/2024 12:47 AM EDT HEALTHCARE LAB Device ID [id number] 03/29/2024 12:47 AM EDT [facility] Specimen Type POC Capillary 03/29/2024 12:47 AM EDT [facility] Blood Capillary blood specimen / Unknown 03/29/2024 12:42 AM EDT 03/29/2024 12:47 AM EDT Jeremy Cazares MD LAB POINT OF CARE TE ST DOCKED DEVICE UNSOLICITED RESULTS Final Result Performing Organization Address [facility] Co de Phone Number [facility] [address] [place] [address] * (ABNORMAL) Vancomycin, Trough, Plasma Please draw ~30 minutes prior to dose due at 2300 on 03/28. Please do NOT hold dose awaiting level to return. Consider obtaining level via peripheral stick. If peripheral stick is not feasible, please ensure that line is... (03/28/2024 10:53 PM EDT) Vancomycin, Trough, Plasma 6.4(L) 10.0 - 20.0 ug/mL 03/28/2024 11:41 [address] [facility] Blood Venous blood specimen / Unknown Venipuncture / Unknown 03/28/2024 10:53 PM EDT 03/28/2024 11:07 PM EDT Narrative [facility] - 03/28/2024 11:41 PM EDT Therapeutic Trough level: ? 10-20ug/mL Supra-therapeutic Trough level: ??>20 ug/mL us Jeremy Cazares MD LAB BLOOD ORDERABLES Final Res ult Performing Organization Address City/[facility]/ZIP Co de Phone Number [facility] [address] [place] [address] * (ABNORMAL) POCT glucose meter (03/28/2024 7:44 PM EDT) POCT Glucose 116(H) 74 - 99 mg/dL 03/28/2024 7:45 PM EDT [facility] Comment:Accuracy of a glucos e result obtained from a capillary whole blood specimen relies upon adequate, non-compromised capillary blood flow. If the capillary glucose result is not consistent with the patient's clinical signs and symptoms, glucose testing should be repeated with either an arterial or venous sample on the glucometer or sent to the main labortory for testing. Comment 03/28/2024 7:45 PM EDT [facility] Filtration Supervisor ID Kishore Phillips 03/28/2024 7:45 PM EDT [facility] Device ID [id number] 03/28/2024 7:45 PM EDT [facility] Specimen Type POC Capillary 03/28/2024 7:45 PM EDT [facility] Blood Capillary blood specimen / Unknown 03/28/2024 7:44 PM EDT 03/28/2024 7:45 PM EDT Jeremy Cazares MD LAB POINT OF CARE TE ST DOCKED DEVICE UNSOLICITED RESULTS Final Result Performing Organization Address City/State/[facility] Co de Phone Number HEALTHCARE LAB [address] [place] [address] * (ABNORMAL) POCT glucose meter (03/28/2024 3:39 PM EDT) [facility] POCT Glucose 131(H) 74 - 99 mg/dL 03/28/2024 3:41 PM EDT [facility] Comment:Accuracy of a glucos e result obtained from a capillary whole blood specimen relies upon adequate, non-compromised capillary blood flow. If the capillary glucose result is not consistent with the patient's clinical signs and symptoms, glucose testing should be repeated with either an arterial or venous sample on the glucometer or sent to the main labortory for testing. Comment 03/28/2024 3:41 PM EDT [facility]ALTH[facility] Filtration Supervisor ID Tania Cordon 3:41 PM EDT [facility] Device ID [id number] 03/28/2024 3:41 PM EDT [facility] Specimen Type POC Capillary 03/28/2024 3:41 PM EDT [facility] Blood Capillary blood specimen / Unknown 03/28/2024 3:39 PM EDT 03/28/2024 3:41 PM EDT us Jeremy Cazares MD LAB POINT OF CARE TE ST DOCKED DEVICE UNSOLICITED RESULTS Final Result Performing Organization Address City/[facility] Co de Phone Number [facility] [address] [place] [address] * (ABNORMAL) POCT glucose meter (03/28/2024 11:31 AM EDT) POCT Glucose 105(H) 74 - 99 mg/dL 03/28/2024 11:33 AM EDT [facility] Comment:Accuracy of a glucos e result obtained from a capillary whole blood specimen relies upon adequate, non-compromised capillary blood flow. If the capillary glucose result is not consistent with the patient's clinical signs and symptoms, glucose testing should be repeated with either an arterial or venous sample on the glucometer or sent to the main labortory for testing. Comment 03/28/2024 11:33 AM EDT [facility]ALTH[facility] LAB Filtration Supervisor ID Cami Oakley 024 11:33 AM EDT HEALTHCARE LAB Device ID [id number] 03/28/2024 11:33 AM EDT [facility]ALTH[facility] LAB Specimen Type POC Capillary 03/28/2024 11:33 AM EDT [facility] Blood Capillary blood specimen / Unknown 03/28/2024 11:31 AM EDT 03/28/2024 11:33 AM EDT us Jeremy Cazares MD LAB POINT OF CARE TE ST DOCKED DEVICE UNSOLICITED RESULTS Final Result Performing Organization Address City/[facility] Co de Phone Number [facility] [address] [place] [address] * (ABNORMAL) Methicillin Resistant Staphylococcus aureus (MRSA) by PCR (03/28/2024 10:03 AM EDT) Pathologist [facility] [place] Methicillin Resistant Staphylococcus aureus (MRSA) by PCR Detected( A) Not Detected 03/28/2024 11:45 AM EDT HEALTHCARE LAB Swab Both anterior nares / Unknown Non-blood Collection / Unknown 03/28/2024 10:03 AM EDT 03/28/2024 10:09 AM EDT Narrative [facility] - 03/28/2024 11:45 AM EDT This test is FDA approved for use with nares swab specimens using the eSwabs. This test is used for clinical purposes. It should not be regarded as investigational or for research. This laboratory is certified under the Clinical Laboratory improvement Amendments of 1988 (CLIA-88 as qualified to perform high complexity clinical laboratory testing. us Jeremy Cazares MD LAB MICROBIOLOGY - GENERAL ORD ERABLES Final Result Performing Organization Address [facility] Co de Phone Number [facility] [address] [place] [id number] * Cystatin C (03/28/2024 6:18 AM EDT) Cystatin C 0.94 0.82 - 1.52 mg/L 03/28/2024 9:47 AM EDT [facility] Blood Venous blood specimen / Unknown Venipuncture / Unknown 03/28/2024 6:18 AM EDT 03/28/2024 6:23 AM EDT us Jeremy Cazares MD LAB BLOOD ORDERABLES Final Res ult Performing Organization Address [facility] de Phone Number [facility] [address] [place], [place] [id number] * (ABNORMAL) Phosphorus (03/28/2024 6:18 AM EDT) Phosphorus, Plasma 2.3(L) 2.5 - 4.5 mg/dL 03/28/2024 6:52 AM EDT HEALTHCARE LAB Blood Venous blood specimen / Unknown Venipuncture / Unknown 03/28/2024 6:18 AM EDT 03/28/2024 6:23 AM EDT us Jeremy Cazares MD LAB BLOOD ORDERABLES Final Res ult Performing Organization Address [facility] de Phone Number [facility] [address] [place] [phone] * (ABNORMAL) Magnesium (03/28/2024 6:18 AM EDT) Magnesium, Plasma 1.8(L) 1.9 - 2.4 mg/dL 03/28/2024 6:52 AM EDT [facility] Blood Venous blood specimen / Unknown Venipuncture / Unknown 03/28/2024 6:18 AM EDT 03/28/2024 6:23 AM EDT us Jeremy Cazares MD LAB BLOOD ORDERABLES Final Res ult [facility] [address] [place] [address] * (ABNORMAL) Basic metabolic panel (03/28/2024 6:18 AM EDT) Glucose, Plasma 142(H) 74 - 99 mg/dL 03/28/2024 6:52 AM EDT [facility] BUN, Plasma 18 8 - 23 mg/dL 03/28/2024 6:52 AM EDT [facility] Creatinine, Plasma 0.57(L) 0.80 - 1.30 mg/dL 03/28/2024 6:52 AM EDT [facility] BUN/Creatinine Ratio 32 03/28/2024 6:52 AM EDT [facility] Sodium, Plasma 137 136 - 145 mmol/L 03/28/2024 6:52 AM EDT [facility] Potassium, Plasma 3.7 3.7 - 4.8 mmol/L 03/28/2024 6:52 AM EDT [facility] Chloride, Plasma 107 97 - 107 mmol/L 03/28/2024 6:52 AM EDT [facility] CO2, Plasma 19(L) 22 - 29 mmol/L 03/28/2024 6:52 AM EDT [facility] Anion Gap 11 6 - 16 mmol/L 03/28/2024 6:52 AM EDT [facility] Total Calcium, Plasma 8.0(L) 8.9 - 10.2 mg/dL 03/28/2024 6:52 AM EDT [facility] eGFRcr 104.8 mL/min/1.7 3m*2 03/28/2024 6:52 AM EDT [facility] Comment:Reported eGFRcr in m L/min/1.73m2 is based the CKD-EPI 2020 equation that does not use a race coefficient. Blood Venous blood specimen / Unknown Venipuncture / Unknown 03/28/2024 6:18 AM EDT 03/28/2024 6:23 AM EDT us Jeremy Cazares MD LAB BLOOD ORDERABLES Final Res ult [facility] [address] [place] [address] * (ABNORMAL) CBC W/O Differential (03/28/2024 6:18 AM EDT) WBC Count 16.83(H) 3.70 - 10.30 10*3/uL LAB HEMATOLOGY METHOD 03/28/2024 6:31 AM EDT [facility] RBC Count 3.74(L) 4.60 - 6.10 10*6/uL LAB HEMATOLOGY METHOD 03/28/2024 6:31 AM EDT [facility] HGB 8.4(L) 13.7 - 17.5 g/dL LAB HEMATOLOGY METHOD 03/28/2024 6:31 AM EDT [facility] HCT 28.0(L) 40.0 - 51.0 % LAB HEMATOLOGY METHOD 03/28/2024 6:31 AM EDT [facility] Platelet Count 299 155 - 369 10*3/uL LAB HEMATOLOGY METHOD 03/28/2024 6:31 AM EDT [facility] MCV 75(L) 79 - 98 fL LAB HEMATOLOGY METHOD 03/28/2024 6:31 AM EDT [facility] MCH 22.5(L) 26.0 - 32.0 pg LAB HEMATOLOGY METHOD 03/28/2024 6:31 AM EDT [facility] MCHC 30.0(L) 30.7 - 35.5 g/dL LAB HEMATOLOGY METHOD 03/28/2024 6:31 AM EDT [facility] RDW 17.5(H) 11.5 - 14.5 % LAB HEMATOLOGY METHOD 03/28/2024 6:31 AM EDT [facility] MPV 9.1 8.8 - 12.5 fL LAB HEMATOLOGY METHOD 03/28/2024 6:31 AM EDT [facility] nRBC 0.0 <=0.0 per 100 WBCs LAB HEMATOLOGY METHOD 03/28/2024 6:31 AM EDT [facility] Blood Venous blood specimen / Unknown Venipuncture / Unknown 03/28/2024 6:18 AM EDT 03/28/2024 6:23 AM EDT us Jeremy Cazares MD LAB BLOOD ORDERABLES Final Res ult Performing Organization Address [facility] de Phone Number HEALTHCARE LAB [address] [place] [address] * (ABNORMAL) POCT glucose meter (03/28/2024 5:11 AM EDT) POCT Glucose 126(H) 74 - 99 mg/dL 03/28/2024 5:13 AM EDT [facility]ALTH[facility] Comment:Accuracy of a glucos e result obtained from a capillary whole blood specimen relies upon adequate, non-compromised capillary blood flow. If the capillary glucose result is not consistent with the patient's clinical signs and symptoms, glucose testing should be repeated with either an arterial or venous sample on the glucometer or sent to the main labortory for testing. Comment 03/28/2024 5:13 AM EDT HEALTHCARE [facility] Filtration Supervisor ID Sae Wells 5:13 AM EDT HEALTHCARE LAB Device ID [id number] 03/28/2024 5:13 AM EDT [facility]ALTHCARE LAB Specimen Type POC Capillary 03/28/2024 5:13 AM EDT [facility] Blood Capillary blood specimen / Unknown 03/28/2024 5:11 AM EDT 03/28/2024 5:13 AM EDT us Jeremy Cazares MD LAB POINT OF CARE TE ST DOCKED DEVICE UNSOLICITED RESULTS Final Result Performing Organization Address [facility] Co de Phone Number HEALTHCARE LAB [address] [place] [address] * XR Chest 1 View (03/28/2024 2:17 AM EDT) Anatomical Region Laterality Modality Chest Digital Radiogra phy Impressions 03/28/2024 7:46 AM EDT No acute airspace disease. CRITICAL RESULT: ?? No. COMMUNICATION: Per this written report. Drafted by Jory Pettit MD on 03/28/2024 7:44 AM Final report signed by Jory Pettit MD on 03/28/2024 7:46 AM Narrative 03/28/2024 7:46 AM EDT CLINICAL INDICATION: concern for pna TECHNIQUE: XR CHEST 1 VIEW COMPARISON: March 26, 2024, March 27, 2024 FINDINGS: Lungs are clear. Heart and mediastinal contours are within normal limits. No pneumothorax. Bilateral pleural effusions are better seen on CT chest from the prior date. Bony structures are unremarkable. Procedure Note Jory Pettit MD - 03/28/2024 CLINICAL INDICATION: concern for pna TECHNIQUE: XR CHEST 1 VIEW COMPARISON: March 26, 2024, March 27, 2024 FINDINGS: Lungs are clear. Heart and mediastinal contours are within normal limits.No pneumothorax. Bilateral pleural effusions are better seen on CT chestfrom the prior date. Bony structures are unremarkable. IMPRESSION: No acute airspace disease. CRITICAL RESULT: No. COMMUNICATION: Per this written report. Drafted by Jory Pettit MD on 03/28/2024 7:44 AM Final report signed by Jory Pettit MD on 03/28/2024 7:46 AM Jeremy Cazares MD IMG XR PROCEDURES Final Result * (ABNORMAL) POCT glucose meter (03/27/2024 11:50 PM EDT) POCT Glucose 131(H) 74 - 99 mg/dL 03/27/2024 11:52 PM EDT [facility] Comment:Accuracy of a glucos e result obtained from a capillary whole blood specimen relies upon adequate, non-compromised capillary blood flow. If the capillary glucose result is not consistent with the patient's clinical signs and symptoms, glucose testing should be repeated with either an arterial or venous sample on the glucometer or sent to the main labortory for testing. Comment 03/27/2024 11:52 PM EDT [facility] Filtration Supervisor ID Som Benito 03/27/2024 11:52 PM EDT [facility] Device ID [id number] 03/27/2024 11:52 PM EDT [facility] Specimen Type POC Capillary 03/27/2024 11:52 PM EDT [facility]ALTH[facility]ARE [facility] Blood Capillary blood specimen / Unknown 03/27/2024 11:50 PM EDT 03/27/2024 11:52 PM EDT us Jeremy Cazares MD LAB POINT OF CARE TE ST DOCKED DEVICE UNSOLICITED RESULTS Final Result Performing Organization Address City/[facility]/ZIP Co de Phone Number [facility] [address] [place] [address] * Transfuse RBC (03/27/2024 6:17 PM EDT) us Jeremy Cazares MD BLOOD TRANSFUSION ORDERABLES F inal Result * Transfuse RBC: 1 Units (03/27/2024 6:17 PM EDT) us Jeremy Cazares MD BLOOD TRANSFUSION ORDERABLES F inal Result * Type and screen (03/27/2024 2:18 PM EDT) ABO/Rh A Positive 03/27/2024 1:47 PM EDT BLOOD BANK Antibody Screen Negative 03/27/2024 1:47 PM EDT BLOOD BANK Specimen Expiration 03/30/2024 23:59 03/27/2024 1:47 PM EDT BLOOD BANK Blood Venous blood specimen / Unknown Venipuncture / Unknown 03/27/2024 2:18 PM EDT 03/27/2024 2:25 PM EDT us Jeremy Cazares MD LAB BLOOD BANK TEST ORDERABLES Final Result Performing Organization Address [facility] Co de Phone Number BLOOD BANK [address] [place] [address], [place] * Prepare Leukocyte Reduced RBC: 1 Units (03/27/2024 1:47 PM EDT) Product Code [id number] CH BLOO D BANK Dispense Status Transfused BLOOD BANK Blood Expiration Date [id number] BLOOD BANK Unit Number [id number] CH B LOOD BANK Product Blood Type 6200 BLOOD BANK Blood Type A+ BLOOD BANK Crossmatch Compatible BLOOD BANK Other us Jeremy Cazares MD BLOOD BANK PRODUCT ORDERABLES Final Result BLOOD BANK [address] [place] [address], [place] * CT Chest w IV Contrast (03/27/2024 12:44 PM EDT) Anatomical Region Laterality Modality Chest Computed Tomogra phy Impressions 03/27/2024 2:19 PM EDT Chest: No clear evidence of metastatic disease. Moderate bilateral pleural effusions are present Abdomen/Pelvis: Irregular thickening of the rectum as discussed. Horseshoe shaped perirectal abscess as discussed abutting the prostate anteriorly with possible communication with the membranous urethra. CRITICAL RESULT: ?? No. COMMUNICATION: Per this written report. Drafted by Levi Mccord MD on 03/27/2024 2:04 PM Final report signed by Levi Mccord MD on 03/27/2024 2:19 PM Narrative 03/27/2024 2:19 PM EDT CLINICAL INDICATION: Abdominal pain, acute, nonlocalized TECHNIQUE: [...] smooth. No discrete suspicious focal liver lesions. Absent gallbladder. Unremarkable pancreas and spleen. Mild thickening of [...] the spine. No clearly aggressive bone lesions. Procedure Note Levi Mccord MD - 03/27/2024 CLINICAL INDICATION: Abdominal pain, acute, nonlocalized TECHNIQUE: Multiple axial CT images were obtained from thoracic inlet through pubicsymphysis following administration of IV contrast, Omnipaque 300, 100 mL.Reformatted images of the abdomen and pelvis in the coronal and sagittalplanes were generated from the axial data set to facilitate diagnosticaccuracy. Total DLP (Dose-Length Product): 381.19 mGy.cm. Please note: The reportedvalue represents the total of one or more individual components during theCT acquisition on this date and at this time, and as such, the same valuemay appear in more than one CT report depending on theinterpreting/reporting physicians. COMPARISON: CT from May 02, 2019. FINDINGS: Chest: Lymph Nodes and Mediastinum: No lymphadenopathy by CT size criteria. Nomediastinal mass lesions. No suspicious thyroid findings. Cardiovascular: The heart is normal in caliber. Thoracic great vessels arepatent. Coronary arterial calcification is present. Lungs and Pleura: No suspicious lung nodules to suggest metastaticdisease. Emphysematous changes are present. There are moderate bilateralpleural effusions with compressive atelectasis. Musculoskeletal and Body Wall: No clearly aggressive bone lesions. Abdomen/Pelvis: Solid Abdominal Organs: Liver contour is smooth. No discrete suspiciousfocal liver lesions. Absent gallbladder. Unremarkable pancreas and spleen.Mild thickening of the body of the left adrenal gland. No discrete adrenalmass. No hydronephrosis. There is a long-standing 1.7 cm hyperdense nodulearising from the right kidney (series 4 image 98). This has somewhatdecreased in size in comparison to the prior CT from April 2019. This isfavored to represent a hemorrhagic cyst. Further bilateral renal cysts arepresent.. GI Tract/Mesentery/Peritoneum: Large and small bowel appear normal incaliber. Fluid-filled distended, large bowel is noted with mild wallthickening at the level of the sigmoid and upper rectum.. Please seebelow Pelvic Viscera: There is wall thickening of the anal canal and rectum.There are associated presumed surgical clips. Along the right perimeter ofthe rectum there is a fluid collection measuring 2.2 cm in thickness(series 4 image 256). The anteroposterior extent is approximately 6.6 cm.This is noted to contain locules of gas and also seemingly communicatesanteriorly and inferiorly with the membranous urethra. There is a smallamount of gas along the penile corpora. Urethral catheter is noted.Prostatomegaly. Lymph Nodes/Vasculature: Aortoiliac vasculature demonstrates moderateatherosclerotic changes. No convincing lymphadenopathy by CT sizecriteria. Free Fluid:Trace Musculoskeletal and Body Wall:There are degenerative changes of the spine.No clearly aggressive bone lesions. IMPRESSION: Chest: No clear evidence of metastatic disease. Moderate bilateral pleuraleffusions are present Abdomen/Pelvis: Irregular thickening of the rectum as discussed. Horseshoeshaped perirectal abscess as discussed abutting the prostate anteriorlywith possible communication with the membranous urethra. CRITICAL RESULT: No. COMMUNICATION: Per this written report. Drafted by Levi Mccord MD on 03/27/2024 2:04 PM Final report signed by Levi Mccord MD on 03/27/2024 2:19 PM us Jeremy Cazares MD IMG CT PROCEDURES Final Result * CT Abdomen Pelvis w IV Contrast (03/27/2024 12:44 PM EDT) Anatomical Region Laterality Modality Abdomen, Pelvis Computed Tomogra phy Impressions 03/27/2024 2:19 PM EDT Chest: No clear evidence of metastatic disease. Moderate bilateral pleural effusions are present Abdomen/Pelvis: Irregular thickening of the rectum as discussed. Horseshoe shaped perirectal abscess as discussed abutting the prostate anteriorly with possible communication with the membranous urethra. CRITICAL RESULT: ?? No. COMMUNICATION: Per this written report. Drafted by Levi Mccord MD on 03/27/2024 2:04 PM Final report signed by Levi Mccord MD on 03/27/2024 2:19 PM Narrative 03/27/2024 2:19 PM EDT CLINICAL INDICATION: Abdominal pain, acute, nonlocalized TECHNIQUE: [...] smooth. No discrete suspicious focal liver lesions. Absent gallbladder. Unremarkable pancreas and spleen. Mild thickening of [...] the spine. No clearly aggressive bone lesions. Procedure Note Levi Mccord MD - 03/27/2024 CLINICAL INDICATION: Abdominal pain, acute, nonlocalized TECHNIQUE: Multiple axial CT images were obtained from thoracic inlet through pubicsymphysis following administration of IV contrast, Omnipaque 300, 100 mL.Reformatted images of the abdomen and pelvis in the coronal and sagittalplanes were generated from the axial data set to facilitate diagnosticaccuracy. Total DLP (Dose-Length Product): 381.19 mGy.cm. Please note: The reportedvalue represents the total of one or more individual components during theCT acquisition on this date and at this time, and as such, the same valuemay appear in more than one CT report depending on theinterpreting/reporting physicians. COMPARISON: CT from May 02, 2019. FINDINGS: Chest: Lymph Nodes and Mediastinum: No lymphadenopathy by CT size criteria. Nomediastinal mass lesions. No suspicious thyroid findings. Cardiovascular: The heart is normal in caliber. Thoracic great vessels arepatent. Coronary arterial calcification is present. Lungs and Pleura: No suspicious lung nodules to suggest metastaticdisease. Emphysematous changes are present. There are moderate bilateralpleural effusions with compressive atelectasis. Musculoskeletal and Body Wall: No clearly aggressive bone lesions. Abdomen/Pelvis: Solid Abdominal Organs: Liver contour is smooth. No discrete suspiciousfocal liver lesions. Absent gallbladder. Unremarkable pancreas and spleen.Mild thickening of the body of the left adrenal gland. No discrete adrenalmass. No hydronephrosis. There is a long-standing 1.7 cm hyperdense nodulearising from the right kidney (series 4 image 98). This has somewhatdecreased in size in comparison to the prior CT from April 2019. This isfavored to represent a hemorrhagic cyst. Further bilateral renal cysts arepresent.. GI Tract/Mesentery/Peritoneum: Large and small bowel appear normal incaliber. Fluid-filled distended, large bowel is noted with mild wallthickening at the level of the sigmoid and upper rectum.. Please seebelow Pelvic Viscera: There is wall thickening of the anal canal and rectum.There are associated presumed surgical clips. Along the right perimeter ofthe rectum there is a fluid collection measuring 2.2 cm in thickness(series 4 image 256). The anteroposterior extent is approximately 6.6 cm.This is noted to contain locules of gas and also seemingly communicatesanteriorly and inferiorly with the membranous urethra. There is a smallamount of gas along the penile corpora. Urethral catheter is noted.Prostatomegaly. Lymph Nodes/Vasculature: Aortoiliac vasculature demonstrates moderateatherosclerotic changes. No convincing lymphadenopathy by CT sizecriteria. Free Fluid:Trace Musculoskeletal and Body Wall:There are degenerative changes of the spine.No clearly aggressive bone lesions. IMPRESSION: Chest: No clear evidence of metastatic disease. Moderate bilateral pleuraleffusions are present Abdomen/Pelvis: Irregular thickening of the rectum as discussed. Horseshoeshaped perirectal abscess as discussed abutting the prostate anteriorlywith possible communication with the membranous urethra. CRITICAL RESULT: No. COMMUNICATION: Per this written report. Drafted by Levi Mccord MD on 03/27/2024 2:04 PM Final report signed by Levi Mccord MD on 03/27/2024 2:19 PM Jeremy Cazares MD IMG CT PROCEDURES Final Result * Clostridiodes (Clostridium) difficile PCR (03/27/2024 11:40 AM EDT) Pathologist [facility] [place] C difficile PCR toxin B gene DNA Result Not Detected Not Detected 03/27/2024 1:10 PM EDT [facility] Stool Rectum structure / Unknown Non-blood Collection / Unknown 03/27/2024 11:40 AM EDT 03/27/2024 11:52 AM EDT Narrative [facility] - 03/27/2024 1:10 PM EDT This test is FDA approved for use with liquid stool specimens. This test is used for ??clinical purposes. It should not be regarded as investigational or for research. This laboratory is certified under the Clinical Laboratory Improvement Amendments of 1988 (CLIA-88) as qualified to perform high complexity clinical laboratory testing. us Jeremy Cazares MD LAB MICROBIOLOGY - GENERAL ORD ERABLES Final Result Performing Organization Address [facility] Co de Phone Number [facility] [address] [place] [address] * Lactate, venous (03/27/2024 9:09 AM EDT) [facility] Lactate, Venous, Whole Blood 2.2 0.5 - 2.2 mmol/L LAB HEMATOLOGY METHOD 03/27/2024 9:14 AM EDT [facility] Blood Venous blood specimen / Unknown Venipuncture / Unknown 03/27/2024 9:09 AM EDT 03/27/2024 9:13 AM EDT us Jeremy Cazares MD LAB BLOOD ORDERABLES Final Res ult Performing Organization Address City/[facility]/ZIP Co de Phone Number [facility] [address] [place] [address] * (ABNORMAL) Comprehensive Metabolic Panel, Plasma (03/27/2024 3:20 AM EDT) [facility] Glucose, Plasma 129(H) 74 - 99 mg/dL 03/27/2024 4:07 AM EDT [facility] BUN, Plasma 14 8 - 23 mg/dL 03/27/2024 4:07 AM EDT [facility] Creatinine, Plasma 0.79(L) 0.80 - 1.30 mg/dL 03/27/2024 4:07 AM EDT [facility] BUN/Creatinine Ratio 18 03/27/2024 4:07 AM EDT [facility] Sodium, Plasma 137 136 - 145 mmol/L 03/27/2024 4:07 AM T [facility] Potassium, Plasma 3.5(L) 3.7 - 4.8 mmol/L 03/27/2024 4:07 AM T [facility] Chloride, Plasma 105 97 - 107 mmol/L 03/27/2024 4:07 AM T [facility] CO2, Plasma 20(L) 22 - 29 mmol/L 03/27/2024 4:07 AM [facility] Anion Gap 12 6 - 16 mmol/L 03/27/2024 4:07 AM T [facility] Total Calcium, Plasma 7.8(L) 8.9 - 10.2 mg/dL 03/27/2024 4:07 AM [facility] Total Protein 4.7(L) 6.3 - 7.9 g/dL 03/27/2024 4:07 AM [facility] Albumin, Plasma 2.2(L) 3.5 - 5.2 g/dL 03/27/2024 4:07 AM [facility] AST, Plasma 15 10 - 50 U/L 03/27/2024 4:07 AM T [facility] ALT, Plasma 7(L) 10 - 50 U/L 03/27/2024 4:07 AM [facility] Alkaline Phosphatase, Plasma 231(H) 40 - 115 U/L 03/27/2024 4:07 AM T [facility] Total Bilirubin, Plasma 0.5 0.2 - 1.1 mg/dL 03/27/2024 4:07 AM [facility] eGFRcr 95.0 mL/min/1.7 3m*2 03/27/2024 4:07 AM [facility] Comment:Reported eGFRcr in m L/min/1.73m2 is based the CKD-EPI 2020 equation that does not use a race coefficient. Blood Venous blood specimen / Unknown Venipuncture / Unknown 03/27/2024 3:20 AM EDT 03/27/2024 3:36 AM EDT us Jeremy Cazares MD LAB BLOOD ORDERABLES Final Res ult [facility] [address] [place] [address] * (ABNORMAL) CBC W/O Differential (03/27/2024 3:20 AM EDT) WBC Count 19.77(H) 3.70 - 10.30 10*3/uL LAB HEMATOLOGY METHOD 03/27/2024 3:45 AM EDT [facility] RBC Count 3.23(L) 4.60 - 6.10 10*6/uL LAB HEMATOLOGY METHOD 03/27/2024 3:45 AM EDT [facility] HGB 7.0(L) 13.7 - 17.5 g/dL LAB HEMATOLOGY METHOD 03/27/2024 3:45 AM EDT [facility] HCT 23.4(L) 40.0 - 51.0 % LAB HEMATOLOGY METHOD 03/27/2024 3:45 AM EDT [facility] Platelet Count 269 155 - 369 10*3/uL LAB HEMATOLOGY METHOD 03/27/2024 3:45 AM EDT [facility] MCV 72(L) 79 - 98 fL LAB HEMATOLOGY METHOD 03/27/2024 3:45 AM EDT [facility] MCH 21.7(L) 26.0 - 32.0 pg LAB HEMATOLOGY METHOD 03/27/2024 3:45 AM EDT [facility] MCHC 29.9(L) 30.7 - 35.5 g/dL LAB HEMATOLOGY METHOD 03/27/2024 3:45 AM EDT [facility] RDW 17.7(H) 11.5 - 14.5 % LAB HEMATOLOGY METHOD 03/27/2024 3:45 AM EDT [facility] MPV 9.3 8.8 - 12.5 fL LAB HEMATOLOGY METHOD 03/27/2024 3:45 AM EDT [facility] nRBC 0.0 <=0.0 per 100 WBCs LAB HEMATOLOGY METHOD 03/27/2024 3:45 AM EDT [facility] Blood Venous blood specimen / Unknown Venipuncture / Unknown 03/27/2024 3:20 AM EDT 03/27/2024 3:36 AM EDT us Jeremy Cazares MD LAB BLOOD ORDERABLES Final Res ult Performing Organization Address City/[facility] Co de Phone Number [facility] [address] [place] [address] * Magnesium, Plasma (03/27/2024 3:20 AM EDT) [facility] Magnesium, Plasma 2.2 1.9 - 2.4 mg/dL 03/27/2024 4:07 AM EDT [facility] Blood Venous blood specimen / Unknown Venipuncture / Unknown 03/27/2024 3:20 AM EDT 03/27/2024 3:36 AM EDT us Jeremy Cazares MD LAB BLOOD ORDERABLES Final Res ult Performing Organization Address [facility] Co de Phone Number [facility] [address] [place] [address] * Phosphorus, Plasma (03/27/2024 3:20 AM EDT) [facility] Phosphorus, Plasma 3.7 2.5 - 4.5 mg/dL 03/27/2024 4:07 AM EDT [facility] Blood Venous blood specimen / Unknown Venipuncture / Unknown 03/27/2024 3:20 AM EDT 03/27/2024 3:36 AM EDT us Jeremy Cazares MD LAB BLOOD ORDERABLES Final Res ult Performing Organization Address City/[facility] Co de Phone Number [facility] [address] [place] [address] * (ABNORMAL) POCT glucose meter (03/26/2024 9:05 PM EDT) [facility] POCT Glucose 136(H) 74 - 99 mg/dL 03/26/2024 9:06 PM EDT [facility] Comment:Accuracy of a glucos e result obtained from a capillary whole blood specimen relies upon adequate, non-compromised capillary blood flow. If the capillary glucose result is not consistent with the patient's clinical signs and symptoms, glucose testing should be repeated with either an arterial or venous sample on the glucometer or sent to the main labortory for testing. Comment 03/26/2024 9:06 PM EDT [facility] Filtration Supervisor ID Alison Kingsley 03/26/2024 9:06 PM EDT [facility] Device ID [id number] 03/26/2024 9:06 PM EDT [facility] Specimen Type POC Capillary 03/26/2024 9:06 PM EDT [facility] Blood Capillary blood specimen / Unknown 03/26/2024 9:05 PM EDT 03/26/2024 9:06 PM EDT Jeremy Cazares MD LAB POINT OF CARE TE ST DOCKED DEVICE UNSOLICITED RESULTS Final Result [facility] [address] [place] [address] * XR Chest 1 View (03/26/2024 4:57 PM EDT) Anatomical Region Laterality Modality Chest Digital Radiogra phy Impressions 03/26/2024 5:19 PM EDT Bilateral interstitial opacities representing pulmonary edema or multifocal pneumonia in the acute setting. CRITICAL RESULT: ?? No COMMUNICATION: Per this written report. Drafted by Sherif Maza MD on 03/26/2024 5:18 PM Final report signed by Sherif Maza MD on 03/26/2024 5:19 PM Narrative 03/26/2024 5:19 PM EDT CLINICAL INDICATION: new tachypnea TECHNIQUE: XR CHEST 1 VIEW COMPARISON: None. FINDINGS: The cardiomediastinal silhouette is unremarkable. Bilateral interstitial opacities. No focal consolidation or pleural effusion. No pneumothorax. The visualized osseous structures are intact. Degenerative change in the spine. Procedure Note Sherif Maza MD - 03/26/2024 CLINICAL INDICATION: new tachypnea TECHNIQUE: XR CHEST 1 VIEW COMPARISON: None. FINDINGS: The cardiomediastinal silhouette is unremarkable. Bilateral interstitialopacities. No focal consolidation or pleural effusion. No pneumothorax.The visualized osseous structures are intact. Degenerative change in thespine. IMPRESSION: Bilateral interstitial opacities representing pulmonary edema ormultifocal pneumonia in the acute setting. CRITICAL RESULT: No COMMUNICATION: Per this written report. Drafted by Sherif Maza MD on 03/26/2024 5:18 PM Final report signed by Sherif Maza MD on 03/26/2024 5:19 PM us Jeremy Cazares MD IMG XR PROCEDURES Final Result * (ABNORMAL) Lactate, venous (03/26/2024 3:50 PM EDT) Pathologist [facility] [place] Lactate, Venous, Whole Blood 5.8(H) 0.5 - 2.2 mmol/L LAB HEMATOLOGY METHOD 03/26/2024 4:00 PM [address] [facility] Blood Venous blood specimen / Unknown Venipuncture / Unknown 03/26/2024 3:50 PM EDT 03/26/2024 3:58 PM EDT us Jeremy Cazares MD LAB BLOOD ORDERABLES Final Res ult [facility] [address] [place] [address] * (ABNORMAL) POCT glucose meter (03/26/2024 3:49 PM EDT) [facility] POCT Glucose 101(H) 74 - 99 mg/dL 03/26/2024 6:44 PM EDT [facility] Comment:Accuracy of a glucos e result obtained from a capillary whole blood specimen relies upon adequate, non-compromised capillary blood flow. If the capillary glucose result is not consistent with the patient's clinical signs and symptoms, glucose testing should be repeated with either an arterial or venous sample on the glucometer or sent to the main labortory for testing. Comment 03/26/2024 6:44 PM EDT [facility] Filtration Supervisor ID Yahaira Gupta 03/26/2024 6:44 PM EDT [facility] Device ID [id number] 03/26/2024 6:44 PM EDT [facility] Specimen Type POC Venous 03/26/2024 6:44 PM [address] [facility] Blood Venous blood specimen / Unknown 03/26/2024 3:49 PM EDT 03/26/2024 6:44 PM EDT us Jeremy Cazares MD LAB POINT OF CARE TE ST DOCKED DEVICE UNSOLICITED RESULTS Final Result Performing Organization Address City/[facility] Co de Phone Number [facility] [address] [place] [address] * Light Green Top (03/26/2024 2:49 PM EDT) [facility] Extra Hold for add-ons 03/26/2024 5:01 PM EDT [facility] Comment:Auto resulted. Blood Venous blood specimen / Unknown 03/26/2024 2:49 PM EDT 03/26/2024 2:49 PM EDT us Jeremy Cazares MD LAB BLOOD ORDERABLES Final Res ult Performing Organization Address [facility] de Phone Number [facility] [address] [place] [address] * POCT glucose meter (03/26/2024 2:27 PM EDT) [facility] POCT Glucose 92 74 - 99 mg/dL 03/26/2024 2:29 PM EDT [facility] Comment:Accuracy of a glucos e result obtained from a capillary whole blood specimen relies upon adequate, non-compromised capillary blood flow. If the capillary glucose result is not consistent with the patient's clinical signs and symptoms, glucose testing should be repeated with either an arterial or venous sample on the glucometer or sent to the main labortory for testing. Comment 03/26/2024 2:29 PM EDT [facility] Filtration Supervisor ID Yahaira Gupta 03/26/2024 2:29 PM EDT [facility] Device ID [id number] 03/26/2024 2:29 PM EDT [facility] Specimen Type POC Venous 03/26/2024 2:29 PM ED[address] [facility] Blood Venous blood specimen / Unknown 03/26/2024 2:27 PM EDT 03/26/2024 2:29 PM EDT us Jeremy Cazares MD LAB POINT OF CARE TE ST DOCKED DEVICE UNSOLICITED RESULTS Final Result Performing Organization Address City/[facility] Co de Phone Number [facility] [address] [place] [address] * ECG Adult (03/26/2024 1:45 PM EDT) EKG DIAGNOSIS CLASS Abnormal MUSE ECG Ventricular Rate 138 BPM MUSE ECG Atrial Rate 138 BPM MUSE ECG OK Interval 142 ms MUSE ECG QRSD Interval 74 ms MUSE ECG QT Interval 304 ms MUSE ECG QTC Interval 461 ms MUSE ECG P Pullman 81 degrees MUSE ECG R Pullman 56 degrees MUSE ECG T Wave Pullman 91 degrees MUSE ECG Diagnosis Sinus tachycardia MUSE ECG Diagnosis Delayed R wave progression across precordial leads MUSE ECG Diagnosis Nonspecific ST and T wave abnormality MUSE ECG Diagnosis Need clinical information and correlation MUSE ECG Diagnosis Prolonged QT MUSE ECG Diagnosis Abnormal ECG MUSE ECG Diagnosis Confirmed by Clinton Dumont ([id number]) on 03/26/2024 5:31:00 PM MUSE ECG 03/26/2024 1:45 PM EDT 03/26/2024 5:31 PM EDT Jeremy Cazares MD ECG ORDERABLES Final Result MUSE ECG * (ABNORMAL) Blood Culture Fungal ID (03/26/2024 1:13 PM EDT) Clavispora lusitaniae Result Detected( A) Not Detected 03/27/2024 7:46 PM EDT [facility] Blood Structure of antecubital vein / Unknown Venipuncture / Unknown 03/26/2024 1:13 PM EDT 03/26/2024 1:37 PM EDT Narrative [facility] - 03/27/2024 7:46 PM EDT Analytes Include: Coco albicans, Coco auris, Coco dublinensis, Debaryomyces hansenii (formerly Coco famata), Coco glabrata, Meyerozyma guilliermondii (formerly Coco guilliermondii), Kluyveromyces marxianus (formerly Coco kefyr), Pichia kudriavzevii (formerly Coco krusei), Clavispora lusitaniae (formerly Coco lusitaniae), Coco parapsilosis, Coco tropicalis, Cryptococcus gattii, Cryptococcus neoformans, Fusarium species, and Rhodotorula species. Reference Value: Not detected for all analytes tested. us Jeremy Cazares MD LAB MICROBIOLOGY - GENERAL ORD ERABLES Final Result [facility] [address] [place] [address] * (ABNORMAL) Comprehensive metabolic panel (03/26/2024 1:13 PM EDT) Glucose, Plasma 70(L) 74 - 99 mg/dL 03/26/2024 2:[address] [facility] BUN, Plasma 8 8 - 23 mg/dL 03/26/2024 2:17 [address] [facility] Creatinine, Plasma 0.70(L) 0.80 - 1.30 mg/dL 03/26/2024 2:[address] [facility] BUN/Creatinine Ratio 11 03/26/2024 2:[address] [facility] Sodium, Plasma 138 136 - 145 mmol/L 03/26/2024 2:[address] [facility] Potassium, Plasma 3.5(L) 3.7 - 4.8 mmol/L 03/26/2024 2:[address] [facility] Chloride, Plasma 104 97 - 107 mmol/L 03/26/2024 2:[address] [facility] CO2, Plasma 18(L) 22 - 29 mmol/L 03/26/2024 2:[address] [facility] Anion Gap 16 6 - 16 mmol/L 03/26/2024 2:[address] [facility] Total Calcium, Plasma 8.2(L) 8.9 - 10.2 mg/dL 03/26/2024 2:[address] [facility] Total Protein 5.5(L) 6.3 - 7.9 g/dL 03/26/2024 2:[address] [facility] Albumin, Plasma 2.5(L) 3.5 - 5.2 g/dL 03/26/2024 2:[address] [facility] AST, Plasma 19 10 - 50 U/L 03/26/2024 2:17 [address] [facility] ALT, Plasma 8(L) 10 - 50 U/L 03/26/2024 2:[address] [facility] Alkaline Phosphatase, Plasma 362(H) 40 - 115 U/L 03/26/2024 2:[address] [facility] Total Bilirubin, Plasma 1.4(H) 0.2 - 1.1 mg/dL 03/26/2024 2:[address] [facility] eGFRcr 98.5 mL/min/1.7 3m*2 03/26/2024 2:[address] [facility] Comment:Reported eGFRcr in m L/min/1.73m2 is based the CKD-EPI 2020 equation that does not use a race coefficient. Blood Venous blood specimen / Unknown Venipuncture / Unknown 03/26/2024 1:13 PM EDT 03/26/2024 1:21 PM EDT us Jeremy Cazares MD LAB BLOOD ORDERABLES Final Res ult [facility] [address] [place] [id number] * (ABNORMAL) CBC W/O Differential (03/26/2024 1:13 PM EDT) WBC Count 24.18(H) 3.70 - 10.30 10*3/uL LAB HEMATOLOGY METHOD 03/26/2024 2:[address] [facility] RBC Count 3.97(L) 4.60 - 6.10 10*6/uL LAB HEMATOLOGY METHOD 03/26/2024 2:[address] [facility] HGB 8.5(L) 13.7 - 17.5 g/dL LAB HEMATOLOGY METHOD 03/26/2024 2:[address] [facility] HCT 29.3(L) 40.0 - 51.0 % LAB HEMATOLOGY METHOD 03/26/2024 2:[address] [facility] Platelet Count 313 155 - 369 10*3/uL LAB HEMATOLOGY METHOD 03/26/2024 2:[address] [facility] MCV 74(L) 79 - 98 fL LAB HEMATOLOGY METHOD 03/26/2024 2:[address] [facility] MCH 21.4(L) 26.0 - 32.0 pg LAB HEMATOLOGY METHOD 03/26/2024 2:[address] [facility] MCHC 29.0(L) 30.7 - 35.5 g/dL LAB HEMATOLOGY METHOD 03/26/2024 2:[address] [facility] RDW 17.4(H) 11.5 - 14.5 % LAB HEMATOLOGY METHOD 03/26/2024 2:[address] [facility] MPV 8.7(L) 8.8 - 12.5 fL LAB HEMATOLOGY METHOD 03/26/2024 2:[address] [facility] nRBC 0.0 <=0.0 per 100 WBCs LAB HEMATOLOGY METHOD 03/26/2024 2:[address] [facility] Blood Venous blood specimen / Unknown Venipuncture / Unknown 03/26/2024 1:13 PM EDT 03/26/2024 1:21 PM EDT us Jeremy Cazares MD LAB BLOOD ORDERABLES Final Res ult [facility] [address] [place] [address] * (ABNORMAL) Blood Culture (Aerobic/Anaerobet Set) (03/26/2024 1:13 PM EDT) Culture Clavispora lusitaniae (formerly Coco lusitaniae)(AA ) TONNY 03/30/2024 3:[address] [facility] Comment: Isolated from aerobic culture bottle only. This result was determined by [employer] tof mass spectrometry using the [employer] database and is for research use only. The organism value for this result has been updated. These results have been appended to the previously preliminary verified report. Edited result: Previously reported as Yeast on 03/28/2024 at 1349 EDT. Gram Stain Budding yeast(AA) 03/30/2024 3:[address] [facility] Comment: Organism seen in Aerobic Blood Culture Bottle. Positivity Date and Time to Detection: 03/27/2024 at 01 Day(s) and 03 Hour(s). This is an appended report. These results have been appended to a previously preliminary verified report. Blood Structure of antecubital vein / Unknown Venipuncture / Unknown 03/26/2024 1:13 PM EDT 03/26/2024 1:37 PM EDT Narrative Organism Antibiotic Method Susceptibility Clavispora lusitaniae (formerly Coco lusitaniae) Micafungin TONNY 0.06 ug/ml: Epidemiological cutoff value (ECV) WT Comment:WT (wild typ e): Resistance to this antifungal drug is unlikely. WT isolates are unlikely to carry intrinsic or acquired resistance mechanisms Clavispora lusitaniae (formerly Coco lusitaniae) Fluconazole TONNY 0.50 ug/ml: Epidemiological cutoff value (ECV) WT Comment:WT (wild typ e): Resistance to this antifungal drug is unlikely. WT isolates are unlikely to carry intrinsic or acquired resistance mechanisms Comment: Yeast susceptibilities are intended for use on blood isolates only and not from urine or other body fluids. CLSI approved breakpoints or epidemiological cutoff values (ECVs) are limited to certain yeast species with TONNY values reported for remaining results. us Jeremy Cazares MD LAB MICROBIOLOGY - GENERAL ORD ERABLES Final Result Performing Organization Address City/[facility]/ZIP Co de Phone Number HEALTHCARE LAB [address] [place] [address] * Blood Culture (Aerobic/Anaerobet Set) (03/26/2024 1:13 PM EDT) Culture No growth at day 5 TONNY 03/31/2024 2:01 PM EDT [facility] Blood Structure of antecubital vein / Unknown Venipuncture / Unknown 03/26/2024 1:13 PM EDT 03/26/2024 1:37 PM EDT us Jeremy Cazares MD LAB MICROBIOLOGY - GENERAL ORD ERABLES Final Result Performing Organization Address City/[facility] Co de Phone Number [facility] [address] [place] [address] * Phosphorus, Plasma (03/26/2024 3:53 AM EDT) Phosphorus, Plasma 2.6 2.5 - 4.5 mg/dL 03/26/2024 4:34 AM EDT [facility]ALTH[facility] Blood Venous blood specimen / Unknown Venipuncture / Unknown 03/26/2024 3:53 AM EDT 03/26/2024 4:05 AM EDT us Jeremy Cazares MD LAB BLOOD ORDERABLES Final Res ult [facility] [address] [place] [address] * (ABNORMAL) Magnesium, Plasma (03/26/2024 3:53 AM EDT) Pathologist [facility] [place] Magnesium, Plasma 1.7(L) 1.9 - 2.4 mg/dL 03/26/2024 4:34 AM EDT [facility] Blood Venous blood specimen / Unknown Venipuncture / Unknown 03/26/2024 3:53 AM EDT 03/26/2024 4:05 AM EDT us Jeremy Cazares MD LAB BLOOD ORDERABLES Final Res ult Performing Organization Address City/[facility] Co de Phone Number [facility]ARE [facility] [address] [place] [address] * (ABNORMAL) Basic Metabolic Panel, Plasma (03/26/2024 3:53 AM EDT) Pathologist [facility] [place] Glucose, Plasma 138(H) 74 - 99 mg/dL 03/26/2024 4:34 AM EDT [facility] BUN, Plasma 7(L) 8 - 23 mg/dL 03/26/2024 4:34 AM EDT [facility] Creatinine, Plasma 0.57(L) 0.80 - 1.30 mg/dL 03/26/2024 4:34 AM EDT [facility] BUN/Creatinine Ratio 12 03/26/2024 4:34 AM EDT [facility] Sodium, Plasma 139 136 - 145 mmol/L 03/26/2024 4:34 AM EDT [facility] Potassium, Plasma 3.2(L) 3.7 - 4.8 mmol/L 03/26/2024 4:34 AM EDT [facility] Chloride, Plasma 107 97 - 107 mmol/L 03/26/2024 4:34 AM EDT [facility] CO2, Plasma 22 22 - 29 mmol/L 03/26/2024 4:34 AM EDT [facility] Anion Gap 10 6 - 16 mmol/L 03/26/2024 4:34 AM EDT [facility] Total Calcium, Plasma 8.0(L) 8.9 - 10.2 mg/dL 03/26/2024 4:34 AM EDT [facility] eGFRcr 104.8 mL/min/1.7 3m*2 03/26/2024 4:34 AM EDT [facility] Comment:Reported eGFRcr in m L/min/1.73m2 is based the CKD-EPI 2020 equation that does not use a race coefficient. Blood Venous blood specimen / Unknown Venipuncture / Unknown 03/26/2024 3:53 AM EDT 03/26/2024 4:05 AM EDT us Jeremy Cazares MD LAB BLOOD ORDERABLES Final Res ult [facility] [address] [place] [phone] * (ABNORMAL) CBC W/O Differential (03/26/2024 3:53 AM EDT) WBC Count 20.00(H) 3.70 - 10.30 10*3/uL LAB HEMATOLOGY METHOD 03/26/2024 4:18 AM EDT [facility] RBC Count 4.03(L) 4.60 - 6.10 10*6/uL LAB HEMATOLOGY METHOD 03/26/2024 4:18 AM EDT [facility] HGB 8.7(L) 13.7 - 17.5 g/dL LAB HEMATOLOGY METHOD 03/26/2024 4:18 AM EDT [facility] HCT 29.1(L) 40.0 - 51.0 % LAB HEMATOLOGY METHOD 03/26/2024 4:18 AM EDT [facility] Platelet Count 310 155 - 369 10*3/uL LAB HEMATOLOGY METHOD 03/26/2024 4:18 AM EDT [facility] MCV 72(L) 79 - 98 fL LAB HEMATOLOGY METHOD 03/26/2024 4:18 AM EDT [facility] MCH 21.6(L) 26.0 - 32.0 pg LAB HEMATOLOGY METHOD 03/26/2024 4:18 AM EDT [facility] MCHC 29.9(L) 30.7 - 35.5 g/dL LAB HEMATOLOGY METHOD 03/26/2024 4:18 AM EDT [facility] RDW 17.2(H) 11.5 - 14.5 % LAB HEMATOLOGY METHOD 03/26/2024 4:18 AM EDT [facility] MPV 8.6(L) 8.8 - 12.5 fL LAB HEMATOLOGY METHOD 03/26/2024 4:18 AM EDT [facility] nRBC 0.0 <=0.0 per 100 WBCs LAB HEMATOLOGY METHOD 03/26/2024 4:18 AM EDT [facility] Blood Venous blood specimen / Unknown Venipuncture / Unknown 03/26/2024 3:53 AM EDT 03/26/2024 4:05 AM EDT us Jeremy Cazares MD LAB BLOOD ORDERABLES Final Res ult Performing Organization Address City/[facility]/ZIP Co de Phone Number [facility]ALTHCARE LAB [address] [place] [address] * Phosphorus (03/25/2024 6:37 AM EDT) Phosphorus, Plasma 2.8 2.5 - 4.5 mg/dL 03/25/2024 7:12 AM EDT [facility] Blood Venous blood specimen / Unknown Venipuncture / Unknown 03/25/2024 6:37 AM EDT 03/25/2024 6:43 AM EDT us Jeremy Cazares MD LAB BLOOD ORDERABLES Final Res ult Performing Organization Address [facility] Co de Phone Number [facility] [address] [place] [address] * (ABNORMAL) Magnesium (03/25/2024 6:37 AM EDT) Magnesium, Plasma 1.5(L) 1.9 - 2.4 mg/dL 03/25/2024 7:12 AM EDT [facility] Blood Venous blood specimen / Unknown Venipuncture / Unknown 03/25/2024 6:37 AM EDT 03/25/2024 6:43 AM EDT us Jeremy Cazares MD LAB BLOOD ORDERABLES Final Res ult Performing Organization Address City/[facility]/ZIP Co de Phone Number [facility]ARE [facility] [address] [place] [address] * (ABNORMAL) Basic metabolic panel (03/25/2024 6:37 AM EDT) Glucose, Plasma 127(H) 74 - 99 mg/dL 03/25/2024 7:12 AM EDT [facility] BUN, Plasma 4(L) 8 - 23 mg/dL 03/25/2024 7:12 AM EDT [facility] Creatinine, Plasma 0.51(L) 0.80 - 1.30 mg/dL 03/25/2024 7:12 AM EDT [facility] BUN/Creatinine Ratio 8 03/25/2024 7:12 AM EDT [facility] Sodium, Plasma 139 136 - 145 mmol/L 03/25/2024 7:12 AM EDT [facility] Potassium, Plasma 3.6(L) 3.7 - 4.8 mmol/L 03/25/2024 7:12 AM EDT [facility] Chloride, Plasma 106 97 - 107 mmol/L 03/25/2024 7:12 AM EDT [facility] CO2, Plasma 23 22 - 29 mmol/L 03/25/2024 7:12 AM EDT [facility] Anion Gap 10 6 - 16 mmol/L 03/25/2024 7:12 AM EDT [facility] Total Calcium, Plasma 8.4(L) 8.9 - 10.2 mg/dL 03/25/2024 7:12 AM EDT [facility] eGFRcr 108.4 mL/min/1.7 3m*2 03/25/2024 7:12 AM EDT [facility] Comment:Reported eGFRcr in m L/min/1.73m2 is based the CKD-EPI 2020 equation that does not use a race coefficient. Blood Venous blood specimen / Unknown Venipuncture / Unknown 03/25/2024 6:37 AM EDT 03/25/2024 6:43 AM EDT us Jeremy Cazares MD LAB BLOOD ORDERABLES Final Res ult [facility] [address] [place] [address] * (ABNORMAL) CBC W/O Differential (03/25/2024 6:37 AM EDT) WBC Count 18.04(H) 3.70 - 10.30 10*3/uL LAB HEMATOLOGY METHOD 03/25/2024 6:50 AM EDT [facility] RBC Count 4.18(L) 4.60 - 6.10 10*6/uL LAB HEMATOLOGY METHOD 03/25/2024 6:50 AM EDT [facility] HGB 9.2(L) 13.7 - 17.5 g/dL LAB HEMATOLOGY METHOD 03/25/2024 6:50 AM EDT [facility] HCT 29.9(L) 40.0 - 51.0 % LAB HEMATOLOGY METHOD 03/25/2024 6:50 AM EDT [facility] Platelet Count 297 155 - 369 10*3/uL LAB HEMATOLOGY METHOD 03/25/2024 6:50 AM EDT [facility] MCV 72(L) 79 - 98 fL LAB HEMATOLOGY METHOD 03/25/2024 6:50 AM EDT [facility] MCH 22.0(L) 26.0 - 32.0 pg LAB HEMATOLOGY METHOD 03/25/2024 6:50 AM EDT [facility] MCHC 30.8 30.7 - 35.5 g/dL LAB HEMATOLOGY METHOD 03/25/2024 6:50 AM EDT [facility] RDW 17.2(H) 11.5 - 14.5 % LAB HEMATOLOGY METHOD 03/25/2024 6:50 AM EDT [facility] MPV 8.7(L) 8.8 - 12.5 fL LAB HEMATOLOGY METHOD 03/25/2024 6:50 AM EDT [facility] nRBC 0.0 <=0.0 per 100 WBCs LAB HEMATOLOGY METHOD 03/25/2024 6:50 AM EDT [facility] Blood Venous blood specimen / Unknown Venipuncture / Unknown 03/25/2024 6:37 AM EDT 03/25/2024 6:43 AM EDT us Jeremy Cazares MD LAB BLOOD ORDERABLES Final Res ult [facility] [address] [place] [phone] * Difficult Crossmatch, Pathologist Interpretation (03/23/2024 4:49 AM EDT) Clinical Diagnosis, Difficult Crossmatch Anemia 03/23/2024 9:51 AM EDT BLOOD BANK Interpretation , Difficult Crossmatch CONSULTATION FOR DIFFICULT CROSSMATCH Blood Bank testing performed on 03/23/2024 revealed the presence of one or more antibodies against the following corresponding antigens (antigen negative prevalence): Antibody of Undetermined Specificity (AUSP). Previously identified and/or historic antibodies against the following corresponding antigens are noted (antigen negative prevalence): None AUSP: The identified antibody was present at the [facility] phase of testing and has a specificity that was unable to be determined. ??In general, the presence of inconclusive antibodies is considered to be clinically insignificant, although it may prolong the time needed to find crossmatch-compati ble RBC units. ?? While the blood bank requires advance notice, in general, crossmatch-compati ble RBCs should be available within an hour or two. RECOMMENDATIONS - This patient should receive crossmatch-compati ble RBCs. - Please prepare an Epic order for anticipated RBC transfusions. As discussed above, advance notice may mitigate delays in making available crossmatch-compati ble RBCs for transfusion. - Platelets, plasma, and cryoprecipitate are not affected by these antibodies. These products may be ordered accordingly. - Please discuss this finding with the patient, patient's parent(s), or legal guardian(s) so they are aware that they are a difficult crossmatch. A resident was involved in the service. I attest I examined the relevant preparations for the specimens and confirmed the diagnosis or interpretation. 03/23/2024 9:51 AM EDT BLOOD BANK Pathologist Signature, Difficult Crossmatch Reviewed by: Arvin Vallejo MD 03/23/2024 9:51 AM EDT BLOOD BANK LAB CP ASR DISCLAIMER Yes 03/23/2024 9:51 AM EDT BLOOD BANK Blood Venous blood specimen / Unknown Venipuncture / Unknown 03/23/2024 4:49 AM EDT 03/23/2024 4:55 AM EDT us Caron Gordon MD LAB BLOOD BANK TEST ORDERABL ES Final Result BLOOD BANK [address] [place] [address], * Antibody Identification (03/23/2024 4:49 AM EDT) Antibody ID Non-specif ic Kaylen 03/23/2024 6:36 AM EDT BLOOD BANK Blood Venous blood specimen / Unknown Venipuncture / Unknown 03/23/2024 4:49 AM EDT 03/23/2024 4:55 AM EDT Caron Gordon MD LAB BLOOD BANK TEST ORDERABL ES Final Result Performing Organization Address [facility] Co de Phone Number BLOOD BANK [address] [place] [address] * (ABNORMAL) APTT (03/23/2024 4:49 AM EDT) Pathologist [facility] [place] aPTT 43(H) 25 - 35 sec 03/23/2024 5:08 AM EDT HEALTHCARE LAB Blood Venous blood specimen / Unknown Venipuncture / Unknown 03/23/2024 4:49 AM EDT 03/23/2024 4:54 AM EDT Caron Gordon MD LAB BLOOD ORDERABLES Final R esult Performing Organization Address City/[facility]/ZIP Co de Phone Number HEALTHCARE LAB [address] [place] [address] * (ABNORMAL) PT-INR (03/23/2024 4:49 AM EDT) Prothrombin Time 15.5(H) 12.0 - 14.3 sec 03/23/2024 5:07 AM EDT [facility] INR 1.3(H) 0.9 - 1.1 03/23/2024 5:07 AM EDT [facility] Blood Venous blood specimen / Unknown Venipuncture / Unknown 03/23/2024 4:49 AM EDT 03/23/2024 4:54 AM EDT Narrative [facility] - 03/23/2024 5:07 AM EDT OPTIMAL INR RANGES FOR PATIENT ON ORAL ANTICOAGULANT THERAPY Prevention of venous thromboembolism ?INR 2.0 to 3.0 In patients with heart disease: Atrial fibrillation ?INR 2.0 to 3.0 Valvular heart disease ? INR 2.0 to 3.0 Tissue heart valves ?INR 2.0 to 3.0 Mechanical prosthetic valves ? INR 2.5 to 3.5 Prevention of recurrent NC ? INR 2.5 to 3.5 Caron Gordon MD LAB BLOOD ORDERABLES Final R esult Performing Organization Address [facility] de Phone Number HEALTHCARE LAB [address] [place] [address] * (ABNORMAL) Type and screen (03/23/2024 4:49 AM EDT) ABO/Rh A Positive 03/23/2024 4:25 AM EDT BLOOD BANK Antibody Screen Positive(A) 03/23/2024 4:25 AM EDT BLOOD BANK Specimen Expiration 03/26/2024 23:59 03/23/2024 4:25 AM EDT BLOOD BANK Blood Venous blood specimen / Unknown Venipuncture / Unknown 03/23/2024 4:49 AM EDT 03/23/2024 4:55 AM EDT Caron Gordon MD LAB BLOOD BANK TEST ORDERABL ES Final Result Performing Organization Address [facility] de Phone Number BLOOD BANK [address] * (ABNORMAL) Blood gas panel, venous (03/23/2024 4:49 AM EDT) pH, Venous 7.50(H) 7.32 - 7.43 LAB HEMATOLOGY METHOD 03/23/2024 4:55 AM EDT HEALTHCARE [facility] pCO2, Venous 36(L) 40 - 55 mmHg LAB HEMATOLOGY METHOD 03/23/2024 4:55 AM EDT [facility] pO2, Venous 36 25 - 40 mmHg LAB HEMATOLOGY METHOD 03/23/2024 4:55 AM EDT [facility] SO2, Measured, Venous 71 65 - 80 % LAB HEMATOLOGY METHOD 03/23/2024 4:55 AM EDT [facility] Base Excess, Venous 4.0(H) -2.0 - 3.0 mmol/L LAB HEMATOLOGY METHOD 03/23/2024 4:55 AM EDT [facility] Bicarbonate, Calculated, Venous 27(H) 22 - 26 mmol/L LAB HEMATOLOGY METHOD 03/23/2024 4:55 AM EDT [facility] Hematocrit, Whole Blood 25.6(L) 40.0 - 51.0 % LAB HEMATOLOGY METHOD 03/23/2024 4:55 AM EDT [facility] Sodium, Whole Blood 140 136 - 145 mmol/L LAB HEMATOLOGY METHOD 03/23/2024 4:55 AM EDT [facility] Potassium, Whole Blood 3.7 3.6 - 4.9 mmol/L LAB HEMATOLOGY METHOD 03/23/2024 4:55 AM EDT [facility] Chloride, Whole Blood 103 97 - 107 mmol/L LAB HEMATOLOGY METHOD 03/23/2024 4:55 AM EDT [facility] Glucose, Whole Blood 111(H) 74 - 99 mg/dL LAB HEMATOLOGY METHOD 03/23/2024 4:55 AM EDT [facility] Lactate, Venous, Whole Blood 1.4 0.5 - 2.2 mmol/L LAB HEMATOLOGY METHOD 03/23/2024 4:55 AM EDT [facility] Ionized Calcium, Whole Blood 4.7 4.6 - 5.1 mg/dL LAB HEMATOLOGY METHOD 03/23/2024 4:55 AM EDT [facility] Blood Venous blood specimen / Unknown Venipuncture / Unknown 03/23/2024 4:49 AM EDT 03/23/2024 4:53 AM EDT us Caron Gordon MD LAB BLOOD ORDERABLES Final R esult [facility] [address] [place] [phone] * (ABNORMAL) CMP (03/23/2024 4:49 AM EDT) [facility] Glucose, Plasma 111(H) 74 - 99 mg/dL 03/23/2024 5:34 AM EDT [facility] BUN, Plasma 7(L) 8 - 23 mg/dL 03/23/2024 5:34 AM EDT [facility] Creatinine, Plasma 0.58(L) 0.80 - 1.30 mg/dL 03/23/2024 5:34 AM [facility] BUN/Creatinine Ratio 12 03/23/2024 5:34 AM [facility] Sodium, Plasma 139 136 - 145 mmol/L 03/23/2024 5:34 AM [facility] Potassium, Plasma 3.8 3.7 - 4.8 mmol/L 03/23/2024 5:34 AM [facility] Chloride, Plasma 105 97 - 107 mmol/L 03/23/2024 5:34 AM [facility] CO2, Plasma 23 22 - 29 mmol/L 03/23/2024 5:34 AM [facility] Anion Gap 11 6 - 16 mmol/L 03/23/2024 5:34 AM [facility] Total Calcium, Plasma 8.6(L) 8.9 - 10.2 mg/dL 03/23/2024 5:34 AM [facility] Total Protein 6.1(L) 6.3 - 7.9 g/dL 03/23/2024 5:34 AM [facility] Albumin, Plasma 2.9(L) 3.5 - 5.2 g/dL 03/23/2024 5:34 AM [facility] AST, Plasma 17 10 - 50 U/L 03/23/2024 5:34 AM [facility] ALT, Plasma 9(L) 10 - 50 U/L 03/23/2024 5:34 AM [facility] Alkaline Phosphatase, Plasma 235(H) 40 - 115 U/L 03/23/2024 5:34 AM [facility] Total Bilirubin, Plasma 0.7 0.2 - 1.1 mg/dL 03/23/2024 5:34 AM [facility] eGFRcr 104.3 mL/min/1.7 3m*2 03/23/2024 5:34 AM [facility] Comment:Reported eGFRcr in m L/min/1.73m2 is based the CKD-EPI 2020 equation that does not use a race coefficient. Blood Venous blood specimen / Unknown Venipuncture / Unknown 03/23/2024 4:49 AM EDT 03/23/2024 5:06 AM EDT us Caron Gordon MD LAB BLOOD ORDERABLES Final R esult [facility] [address] [place] [address] * (ABNORMAL) CBC w/diff (03/23/2024 4:49 AM EDT) WBC Count 15.97(H) 3.70 - 10.30 10*3/uL LAB HEMATOLOGY METHOD 03/23/2024 4:56 AM EDT [facility] RBC Count 3.84(L) 4.60 - 6.10 10*6/uL LAB HEMATOLOGY METHOD 03/23/2024 4:56 AM EDT [facility] HGB 8.4(L) 13.7 - 17.5 g/dL LAB HEMATOLOGY METHOD 03/23/2024 4:56 AM EDT [facility] HCT 27.1(L) 40.0 - 51.0 % LAB HEMATOLOGY METHOD 03/23/2024 4:56 AM EDT [facility] Platelet Count 299 155 - 369 10*3/uL LAB HEMATOLOGY METHOD 03/23/2024 4:56 AM EDT [facility] MCV 71(L) 79 - 98 fL LAB HEMATOLOGY METHOD 03/23/2024 4:56 AM EDT [facility] MCH 21.9(L) 26.0 - 32.0 pg LAB HEMATOLOGY METHOD 03/23/2024 4:56 AM EDT [facility] MCHC 31.0 30.7 - 35.5 g/dL LAB HEMATOLOGY METHOD 03/23/2024 4:56 AM EDT [facility] RDW 16.8(H) 11.5 - 14.5 % LAB HEMATOLOGY METHOD 03/23/2024 4:56 AM EDT [facility] MPV 8.6(L) 8.8 - 12.5 fL LAB HEMATOLOGY METHOD 03/23/2024 4:56 AM EDT [facility] nRBC 0.0 <=0.0 per 100 WBCs LAB HEMATOLOGY METHOD 03/23/2024 4:56 AM EDT [facility] Differential Type Automated LAB HEMATOLOGY METHOD 03/23/2024 4:56 AM EDT [facility] Neutrophils % 89.0 % LAB HEMATOLOGY METHOD 03/23/2024 4:56 AM EDT [facility] Lymphocytes % 5.0 % LAB HEMATOLOGY METHOD 03/23/2024 4:56 AM EDT [facility] Monocytes % 5.0 % LAB HEMATOLOGY METHOD 03/23/2024 4:56 AM EDT [facility] Eosinophils % 0.0 % LAB HEMATOLOGY METHOD 03/23/2024 4:56 AM EDT [facility] Basophils % 0.0 % LAB HEMATOLOGY METHOD 03/23/2024 4:56 AM EDT [facility] Immature Granulocytes % 1.0 % LAB HEMATOLOGY METHOD 03/23/2024 4:56 AM EDT [facility] Neutrophils Absolute 14.11(H) 1.60 - 6.10 10*3/uL LAB HEMATOLOGY METHOD 03/23/2024 4:56 AM EDT [facility] Lymphocytes Absolute 0.86(L) 1.20 - 3.90 10*3/uL LAB HEMATOLOGY METHOD 03/23/2024 4:56 AM EDT [facility] Monocytes Absolute 0.86 0.30 - 0.90 10*3/uL LAB HEMATOLOGY METHOD 03/23/2024 4:56 AM EDT [facility] Eosinophils Absolute 0.00 0.00 - 0.50 10*3/uL LAB HEMATOLOGY METHOD 03/23/2024 4:56 AM EDT [facility] Basophils Absolute 0.03 0.00 - 0.10 10*3/uL LAB HEMATOLOGY METHOD 03/23/2024 4:56 AM EDT [facility] Immature Granulocytes Absolute 0.11(H) 0.00 - 0.06 10*3/uL LAB HEMATOLOGY METHOD 03/23/2024 4:56 AM EDT [facility] Blood Venous blood specimen / Unknown Venipuncture / Unknown 03/23/2024 4:49 AM EDT 03/23/2024 4:53 AM EDT Narrative [facility]ARE [facility] - 03/23/2024 4:56 AM EDT Therapeutic decision making should be based on absolute values, rather than percentages. us Caron Gordon MD LAB BLOOD ORDERABLES Final R esult [facility] [address] [place] [phone] documented in this encounter Visit Diagnoses Diagnosis Rectal cancer (CMS/HCC)- Primary Malignant neoplasm of rectum Rectal cancer (CMS/HCC) Malignant neoplasm of rectum Colostomy in place (CMS/HCC) Colostomy status Colovesical fistula Intestinovesical fistula documented in this encounter Admitting Diagnoses Diagnosis Rectal cancer (CMS/HCC) Malignant neoplasm of rectum documented in this encounter Administered Medications Inactive Administered Medications - up to 3 most recent administrations Medication Order MAR Action Action Date Dose Rate Site acetaminophen (Ofirmev) injection 500 mg 500 mg, Intravenous, Every 6 hours PRN, 6 doses, Starting on Thu03/23/24 at 2219, Until Thu03/24/24 at 1943, Routine, mild pain New Bag 03/24/2024 12:50 PM EDT 500 mg 200 m L/hr acetaminophen (Tylenol) tablet 1,000 mg 1,000 mg, Oral, Every 6 hours scheduled, First dose on Thu03/24/24 at 2000, Until Discontinued, Routine Given 04/06/2024 11:59 AM EDT 1,000 mg Given 04/05/2024 12:14 PM EDT 1,000 mg Given 04/04/2024 5:55 PM EDT 1,000 mg acetaminophen (Tylenol) tablet 1,000 mg 1,000 mg, Oral, Every 6 hours PRN, Starting on Thu04/06/24 at 1400, Until Thu04/12/24 at 194, Routine, moderate pain, mild pain, use first for pain Given 04/08/2024 10:28 PM EDT 1,000 mg Given 04/08/2024 12:17 AM EDT 1,000 mg Given 04/07/2024 3:14 PM EDT 1,000 mg albuterol 108 (90 Base) MCG/ACT inhaler 2 puff 2 puff, Inhalation, Every 6 hours PRN, Starting on Thu03/29/24 at 1245, Until Thu04/12/24 at 1941, Routine, shortness of breath, wheezing Given 03/30/2024 5:18 PM EDT 2 puffs Given 03/30/2024 9:14 AM EDT 2 puffs Given 03/29/2024 10:25 PM EDT 2 puffs allopurinol (Zyloprim) tablet 300 mg 300 mg, Oral, Daily, First dose on Thu03/25/24 at 0900, Until Discontinued, Routine Given 04/12/2024 8:53 AM EDT 300 mg Given 04/11/2024 10:06 AM EDT 300 mg Given 04/10/2024 8:33 AM EDT 300 mg atorvastatin (Lipitor) tablet 20 mg 20 mg, Oral, Nightly, First dose on Thu04/12/24 at 2100, Until Discontinued, Routine benzocaine-menthol (Chloraseptic) 6-10 MG lozenge 1 lozenge 1 lozenge, Mouth/Throat, Every 4 hours PRN, Starting on Thu03/24/24 at 0717, Until Thu04/07/24 at 1053, Routine, sore throat Given 03/31/2024 8:51 PM EDT 1 lozenge Given 03/24/2024 9:22 AM EDT 1 lozenge carvedilol (Coreg) tablet 12.5 mg 12.5 mg, Oral, 2 times daily, First dose (after last modification) on Thu04/02/24 at 2100, Until Discontinued, Routine Given 04/04/2024 9:57 AM EDT 12.5 mg Given 04/03/2024 8:11 PM EDT 12.5 mg Given 04/03/2024 9:37 AM EDT 12.5 mg carvedilol (Coreg) tablet 12.5 mg 12.5 mg, Oral, Once, 1 dose, On Thu04/04/24 at 1045, Routine Given 04/04/2024 12:22 PM EDT 12.5 mg carvedilol (Coreg) tablet 25 mg 25 mg, Oral, 2 times daily, First dose (after last modification) on Thu04/04/24 at 2100, Until Discontinued, Routine Given 04/12/2024 8:53 AM EDT 25 mg Given 04/11/2024 8:21 PM EDT 25 mg Given 04/11/2024 10:06 AM EDT 25 mg carvedilol (Coreg) tablet 6.25 mg 6.25 mg, Oral, 2 times daily, First dose on Thu04/01/24 at 2100, Until Discontinued, Routine Given 04/02/2024 11:01 AM EDT 6.25 mg Given 04/01/2024 8:28 PM EDT 6.25 mg dextrose 5 % and lactated Ringer's infusion 42 mL/hr, Intravenous, Continuous, Starting on Thu03/31/24 at 0730, Until Thu04/01/24 at 0800, Routine New Bag 03/31/2024 11:31 AM EDT 42 mL/hr 42 mL /hr dextrose 5 % and lactated Ringer's infusion 100 mL/hr, Intravenous, Continuous, Starting on Thu03/23/24 at 0600, Until Thu03/31/24 at 0709, Routine Restarted 03/31/2024 4:45 AM EDT 100 mL/hr 100 mL /hr Rate/Dose Verify 03/30/2024 8:00 PM EDT 100 mL/hr 100 mL/ hr New Bag 03/30/2024 4:15 PM EDT 100 mL/hr 100 mL/hr enoxaparin (Lovenox) syringe 40 mg 40 mg, Subcutaneous, Daily, First dose on Thu03/31/24 at 1400, Until Discontinued, Routine Given 04/06/2024 8:12 AM EDT 40 mg Left Lower Abdomen Given 04/05/2024 10:19 AM EDT 40 mg R ight Upper Abdomen Given 04/04/2024 9:58 AM EDT 40 mg Ri ght Lower Abdomen fluconazole (Diflucan) tablet 400 mg 400 mg, Oral, Daily, 4 doses, First dose on Thu04/06/24 at 0900, Last dose on Thu04/09/24 at 0900, Routine Given 04/09/2024 8:32 AM EDT 400 mg Given 04/08/2024 8:41 AM EDT 400 mg Given 04/07/2024 8:21 AM EDT 400 mg fluconazole in NS (Diflucan) 800 mg 400 mL IVPB 800 mg, Intravenous, Every 24 hours, 1 dose, First dose on Thu04/04/24 at 0930, Routine Given 04/04/2024 9:58 AM EDT 800 mg 100 mL/hr fluconazole in NS (Diflucan) IVPB 400 mg 400 mg, Intravenous, Every 24 hours, 5 doses, First dose on Thu04/05/24 at 0930, Last dose on Thu04/09/24 at 0930, Routine New Bag 04/05/2024 10:20 AM EDT 400 mg 100 mL/hr furosemide (Lasix) injection 20 mg 20 mg, Intravenous, Once, 1 dose, On Thu04/01/24 at 0830, Routine Given 04/01/2024 9:57 AM EDT 20 mg furosemide (Lasix) injection 20 mg 20 mg, Intravenous, Once, 1 dose, On 04/02/24 at 1215, Routine Given 04/02/2024 12:58 PM EDT 20 mg furosemide (Lasix) injection 20 mg 20 mg, Intravenous, Once, 1 dose, On Thu04/04/24 at 0945, Routine Given 04/04/2024 9:58 AM EDT 20 mg furosemide (Lasix) injection 20 mg 20 mg, Intravenous, Once, 1 dose, On Thu04/05/24 at 0815, Routine Given 04/05/2024 10:19 AM EDT 20 mg heparin (porcine) injection 5,000 Units 5,000 Units, Subcutaneous, Every 8 hours scheduled, First dose on Thu03/23/24 at 0615, Until Discontinued, Routine Given 03/31/2024 5:21 AM EDT 5,000 Units Left Upper Arm (Back) Given 03/30/2024 11:00 PM EDT 5,000 Units Right Upper Arm (Back) Given 03/30/2024 2:30 PM EDT 5,000 Units hydrALAZINE (Apresoline) injection 10 mg 10 mg, Intravenous, Every 4 hours PRN, Starting on Thu03/31/24 at 1209, Until Thu04/12/24 at 1941, Routine, SBP>180 Given 04/11/2024 11:49 PM EDT 10 mg Given 04/08/2024 11:17 PM EDT 10 mg Given 04/04/2024 6:20 AM EDT 10 mg HYDROmorphone (Dilaudid) injection 0.25 mg 0.25 mg, Intravenous, Every 3 hours PRN, Starting on Thu03/23/24 at 2221, Until Thu04/01/24 at 1636, Routine, severe pain Given 03/29/2024 2:44 AM EDT 0.25 m g Given 03/28/2024 9:44 PM EDT 0.25 mg Given 03/26/2024 3:41 PM EDT 0.25 mg iohexol (OMNIPaque) 300 MG/ML injection 100 mL 100 mL, Intravenous, Once in imaging, 1 dose, Starting on Thu03/27/24 at 1011, Until Thu03/27/24 at 1245, Routine, Imaging Protocol Orders Given 03/27/2024 12:45 PM EDT 100 mL iohexol (OMNIPaque) 9 MG/ML oral contrast 500 mL 500 mL, Oral, Once in imaging, 1 dose, Starting on Thu03/27/24 at 1011, Until Thu03/27/24 at 1140, Routine, Imaging Protocol Orders Given 03/27/2024 11:40 AM EDT 500 mL labetalol (Normodyne,Trandate) injection 10 mg 10 mg, Intravenous, Once, 1 dose, On Thu03/30/24 at 1200, Routine, Holding - Preprocedure Given 03/30/2024 11:42 AM EDT 10 mg labetalol (Normodyne,Trandate) injection 20 mg 20 mg, Intravenous, Every 4 hours PRN, Starting on Thu03/23/24 at 0704, Until Thu03/30/24 at 1846, Routine, high blood pressure, SBP > 180 sustained. Hold for HR <60 Given 03/30/2024 10:56 AM EDT 20 mg Given 03/30/2024 5:20 AM EDT 20 mg Given 03/29/2024 3:57 PM EDT 20 mg labetalol (Normodyne,Trandate) injection 20 mg 20 mg, Intravenous, Every 4 hours PRN, Starting on Thu03/30/24 at 1846, Until Thu04/12/24 at 1941, Routine, high blood pressure, SBP > 160 sustained. Hold for HR <60 Given 04/05/2024 10:19 AM EDT 20 mg Given 04/04/2024 9:58 AM EDT 20 mg Given 04/03/2024 12:56 PM EDT 20 mg labetalol (Normodyne,Trandate) injection 5 mg 5 mg, Intravenous, Every 15 min PRN, 4 doses, Starting on Thu03/30/24 at 1604, Until Thu03/30/24 at 1851, Routine, high blood pressure, systolic bp > 160 Given 03/30/2024 6:51 PM EDT 5 mg Given 03/30/2024 6:21 PM EDT 5 mg Given 03/30/2024 5:11 PM EDT 5 mg lactated Ringer's bolus 1,000 mL 1,000 mL, Intravenous, Once, 1 dose, On Thu03/23/24 at 0615, Administer over 2 Hours, Routine New Bag 03/23/2024 8:13 AM EDT 1,000 mL 500 mL/hr lactated Ringer's bolus 500 mL 500 mL, Intravenous, Once, 1 dose, On 03/26/24 at 1430, Administer over 1 Hours, Routine New Bag 03/26/2024 2:17 PM EDT 500 mL 500 mL/hr lactated Ringer's bolus 500 mL 500 mL, Intravenous, Once, 1 dose, On 03/26/24 at 1715, Administer over 2 Hours, Routine New Bag 03/26/2024 5:49 PM EDT 500 mL 250 mL/hr lactated Ringer's infusion 1,000 mL 1,000 mL, Intravenous, Once, 1 dose, On Thu03/23/24 at 0440, STAT New Bag 03/23/2024 4:51 AM EDT 1,000 mL lisinopril tablet 10 mg 10 mg, Oral, Once, 1 dose, On 04/09/24 at 1300, Routine Given 04/09/2024 1:34 PM EDT 10 mg lisinopril tablet 10 mg 10 mg, Oral, Once, 1 dose, On Thu04/11/24 at 1330, Routine Given 04/11/2024 1:44 PM EDT 10 mg lisinopril tablet 20 mg 20 mg, Oral, Daily, First dose on Rehana 03/31/24 at 1215, Until Discontinued, Routine Given 04/09/2024 8:32 AM EDT 20 mg Given 04/08/2024 8:42 AM EDT 20 mg Given 04/07/2024 8:21 AM EDT 20 mg lisinopril tablet 30 mg 30 mg, Oral, Daily, First dose (after last modification) on Thu04/10/24 at 0900, Until Discontinued, Routine Given 04/11/2024 10:06 AM EDT 30 mg Given 04/10/2024 8:33 AM EDT 30 mg lisinopril tablet 40 mg 40 mg, Oral, Daily, First dose (after last modification) on Thu04/12/24 at 0900, Until Discontinued, Routine Given 04/12/2024 8:53 AM EDT 40 mg magnesium sulfate IVPB 2 g 2 g, Intravenous, Once, 1 dose, On Thu03/25/24 at 0930, at 25 mL/hr, Administer over 2 Hours, Routine New Bag 03/25/2024 12:32 PM EDT 2 g 25 mL/hr magnesium sulfate IVPB 2 g 2 g, Intravenous, Once, 1 dose, On Thu03/26/24 at 0700, at 25 mL/hr, Administer over 2 Hours, Routine New Bag 03/26/2024 9:25 AM EDT 2 g 25 mL/hr magnesium sulfate IVPB 2 g 2 g, Intravenous, Once, 1 dose, On Thu03/28/24 at 0915, Routine New Bag 03/28/2024 8:51 AM EDT 2 g 25 mL/hr magnesium sulfate IVPB 2 g 2 g, Intravenous, Once, 1 dose, On Thu03/30/24 at 0430, at 25 mL/hr, Administer over 2 Hours, Routine New Bag 03/30/2024 4:27 AM EDT 2 g 25 mL/hr magnesium sulfate IVPB 2 g 2 g, Intravenous, Once, 1 dose, On Thu04/04/24 at 1800, Routine New Bag 04/04/2024 5:55 PM EDT 2 g 25 mL/hr methocarbamol (Robaxin) tablet 500 mg 500 mg, Oral, 4 times daily, First dose on Thu03/31/24 at 0945, Until Discontinued, Routine Given 04/06/2024 8:12 AM EDT 500 mg Given 04/05/2024 10:18 PM EDT 500 mg Given 04/05/2024 10:19 AM EDT 500 mg methocarbamol (Robaxin) tablet 500 mg 500 mg, Oral, 4 times daily PRN, Starting on Thu04/06/24 at 1400, Until Thu04/12/24 at 1941, Routine, muscle spasms, use second for pain micafungin (Mycamine) 100 mg in sodium chloride 0.9 % 100 mL IVPB 100 mg, Intravenous, Every 24 hours, First dose on Thu03/27/24 at 1900, Until Discontinued, at 120 mL/hr, Administer over 60 Minutes, Routine Given 04/03/2024 8:12 PM EDT 100 m g 120 mL/hr Given 04/02/2024 8:17 PM EDT 100 mg 120 mL/hr Given 04/01/2024 6:11 PM EDT 100 mg 120 mL/hr oxyCODONE (Roxicodone) immediate release tablet 10 mg 10 mg, Oral, Once as needed, 1 dose, Starting on Thu03/30/24 at 1509, Until Thu03/30/24 at 1711, Routine, Recovery (Phase I only), moderate pain, severe pain, pain score of 6-8 out of 10 Given 03/30/2024 5:11 PM EDT 10 mg oxyCODONE (Roxicodone) immediate release tablet 5 mg 5 mg, Oral, Every 6 hours PRN, Starting on Thu03/30/24 at 1614, Until Thu04/06/24 at 1354, Routine, Recovery(Phase II-Outpatient)/On Unit(Inpatient), moderate pain Given 04/05/2024 12:14 PM EDT 5 mg Given 04/04/2024 8:30 PM EDT 5 mg Given 04/03/2024 9:25 PM EDT 5 mg pantoprazole (Protonix) EC tablet 40 mg 40 mg, Oral, Daily, First dose on Thu04/01/24 at 0900, Until Discontinued, Routine Given 04/12/2024 8:53 AM EDT 40 mg Given 04/11/2024 10:06 AM EDT 40 mg Given 04/10/2024 8:33 AM EDT 40 mg pantoprazole (Protonix) injection 40 mg 40 mg, Intravenous, Daily, First dose on Thu03/23/24 at 0930, Until Discontinued, Routine Given 03/31/2024 8:49 AM EDT 40 mg Given 03/30/2024 9:01 AM EDT 40 mg Given 03/29/2024 8:14 AM EDT 40 mg phosphorus (K Phos Neutral) tablet 2 tablet 2 tablet, Oral, Every 8 hours, 3 doses, First dose on Thu03/30/24 at 0430, Last dose on Thu03/30/24 at 2030, Routine Given 03/30/2024 7:46 PM EDT 2 table ts Given 03/30/2024 4:27 AM EDT 2 tablets piperacillin-tazobactam (Zosyn) 4.5 g in sodium chloride 0.9% 100 mL IVPB (Mini-Bag Plus) 4.5 g, Intravenous, Every 6 hours, 39 doses, First dose on Thu03/23/24 at 0600, Last dose on Thu04/01/24 at 1800, Routine New Bag 04/01/2024 6:10 PM EDT 4.5 g New Bag 04/01/2024 1:10 PM EDT 4.5 g New Bag 04/01/2024 6:42 AM EDT 4.5 g potassium chloride CR (Klor-Con) ER tablet 20 mEq 20 mEq, Oral, Once, 1 dose, On Thu03/27/24 at 0730, Routine Given 03/27/2024 9:00 AM EDT 20 mEq potassium chloride CR (Klor-Con) ER tablet 20 mEq 20 mEq, Oral, Once, 1 dose, On Thu03/30/24 at 0615, Routine Given 03/30/2024 5:24 AM EDT 20 mEq potassium chloride CR (Klor-Con) ER tablet 30 mEq 30 mEq, Oral, Once, 1 dose, On Thu03/28/24 at 0815, Routine Given 03/28/2024 8:51 AM EDT 30 mEq potassium chloride CR (Klor-Con) ER tablet 40 mEq 40 mEq, Oral, Once, 1 dose, On Thu03/25/24 at 0930, Routine Given 03/25/2024 11:35 AM EDT 40 mEq potassium chloride CR (Klor-Con) ER tablet 40 mEq 40 mEq, Oral, Every 4 hours, 2 doses, First dose on Thu03/26/24 at 0700, Last dose on Thu03/26/24 at 1100, Routine Given 03/26/2024 1:14 PM EDT 40 mEq Given 03/26/2024 9:28 AM EDT 40 mEq potassium chloride CR (Klor-Con) ER tablet 40 mEq 40 mEq, Oral, Once, 1 dose, On Thu03/27/24 at 0545, Routine Given 03/27/2024 5:42 AM EDT 40 mEq potassium chloride CR (Klor-Con) ER tablet 40 mEq 40 mEq, Oral, Once, 1 dose, On Thu03/30/24 at 0430, Routine Given 03/30/2024 4:27 AM EDT 40 mEq Povidone-Iodine 5 % swab solution 1 Swab Nasal, Daily, 5 doses, First dose on Thu03/24/24 at 1215, Last dose on Thu03/28/24 at 0900, Routine Given 03/28/2024 8:52 AM EDT 1 Swab Given 03/27/2024 9:00 AM EDT 1 Swab Given 03/26/2024 9:28 AM EDT 1 Swab rivaroxaban (Xarelto) tablet 10 mg 10 mg, Oral, Daily with dinner, First dose on Thu04/07/24 at 1800, Until Discontinued, Routine Given 04/11/2024 6:04 PM EDT 10 mg Given 04/10/2024 5:21 PM EDT 10 mg Given 04/09/2024 5:14 PM EDT 10 mg sodium chloride 0.9 % flush 10 mL 10 mL, Intravenous, Every 12 hours, First dose on Thu03/23/24 at 0600, Until Discontinued, Routine Given 04/12/2024 5:10 AM EDT 10 mL Given 04/11/2024 6:04 PM EDT 10 mL Given 04/11/2024 5:22 AM EDT 10 mL sodium chloride 0.9 % flush 10 mL 10 mL, Intravenous, As needed, Starting on Thu03/23/24 at 0558, Until Thu04/12/24 at 1941, Routine, line care Sodium Phosphate-NaCl IVPB 15 mmol 15 mmol, Intravenous, Once, 1 dose, On Thu03/28/24 at 0815, Routine Given 03/28/2024 8:52 AM EDT 15 mmol tamsulosin (Flomax) 24 hr capsule 0.8 mg 0.8 mg, Oral, Daily, First dose on Thu03/25/24 at 0900, Until Discontinued, Routine Given 04/12/2024 8:53 AM EDT 0.8 mg Given 04/11/2024 10:05 AM EDT 0.8 mg Given 04/10/2024 8:33 AM EDT 0.8 mg theophylline ER (Ananda-Dur) 12 hr tablet 300 mg 300 mg, Oral, Daily, First dose on Thu03/25/24 at 0900, Until Discontinued, Routine Given 04/12/2024 10:3 5 AM EDT 300 mg Given 04/11/2024 10:05 AM EDT 300 mg Given 04/10/2024 8:42 AM EDT 300 mg Vancomycin HCl in NaCl (Vancocin) IVPB 1,000 mg 1,000 mg, Intravenous, Every 12 hours, 4 doses, First dose on Thu03/31/24 at 0030, Last dose on Thu04/01/24 at 1230, at 250 mL/hr, Routine Given 04/01/2024 1:10 PM EDT 1,000 mg 250 mL/hr Given 04/01/2024 12:23 AM EDT 1,000 mg 250 mL/hr Given 03/31/2024 11:36 AM EDT 1,000 mg 250 mL/hr vancomycin in dextrose (Vancocin) IVPB 1,000 mg 1,000 mg, Intravenous, Every 18 hours, First dose on Thu03/27/24 at 1100, Until Discontinued, at 200 mL/hr, Routine New Bag 03/28/2024 11:31 PM EDT 1,000 mg 200 mL/hr New Bag 03/28/2024 5:48 AM EDT 1,000 mg 200 mL/hr New Bag 03/27/2024 11:33 AM EDT 1,000 mg 200 mL/hr vancomycin in dextrose (Vancocin) IVPB 1,000 mg 1,000 mg, Intravenous, Every 12 hours, First dose (after last modification) on Thu03/29/24 at 1115, Until Discontinued, at 200 mL/hr, Routine New Bag 03/29/2024 10:26 PM EDT 1,000 mg 200 mL/hr New Bag 03/29/2024 12:16 PM EDT 1,000 mg 200 mL/hr vancomycin in dextrose (Vancocin) IVPB 1,000 mg 1,000 mg, Intravenous, Once, 1 dose, On Thu03/30/24 at 1245, at 200 mL/hr, Routine New Bag 03/30/2024 12:28 PM EDT 1,000 mg 200 mL/hr vancomycin in NS (Vancocin) IVPB 1,250 mg 1,250 mg, Intravenous, Once, 1 dose, On 03/26/24 at 1700, at 200 mL/hr, Routine New Bag 03/26/2024 5:48 PM EDT 1,250 mg 200 mL/hr documented in this encounter Active and Recently Administered Medications Times are shown in EDT. Scheduled Medication Order 04/10/2024 04/11/2024 04/12/2024 allopurinol (Zyloprim) tablet 300 mg 300 mg, Oral, Daily, First dose on Thu03/25/24 at 0900, Until Discontinued, Routine 0833 (Given - Provider: Dian Benoit) 1006 (Given - Provider: Caron Barrera RN) 0853 (Given - Provider: Caron Barrera RN) atorvastatin (Lipitor) tablet 20 mg 20 mg, Oral, Nightly, First dose on Thu04/12/24 at 2100, Until Discontinued, Routine carvedilol (Coreg) tablet 25 mg 25 mg, Oral, 2 times daily, First dose (after last modification) on Thu04/04/24 at 2100, Until Discontinued, Routine 0834 (Given - Provider: Dian Benoit)2143 (Given - Provider: Chen Kurtz RN) 1006 (Given - Provider: Caron Barrera RN)2020 (Given - Provider: Tarah Barton) 0853 (Given - Provider: Caron Barrera RN) lisinopril tablet 10 mg (COMPLETED) 10 mg, Oral, Once, 1 dose, On Thu04/11/24 at 1330, Routine 1344 (Given - Provider: Caron Barrera RN) lisinopril tablet 30 mg (CANCELED) 30 mg, Oral, Daily, First dose (after last modification) on Thu04/10/24 at 0900, Until Discontinued, Routine 0833 (Given - Provider: Dian Benoit) 1006 (Given - Provider: Caron Barrera RN) lisinopril tablet 40 mg 40 mg, Oral, Daily, First dose (after last modification) on Thu04/12/24 at 0900, Until Discontinued, Routine 0853 (Given - Provid er: Caron Barrera RN) pantoprazole (Protonix) EC tablet 40 mg 40 mg, Oral, Daily, First dose on Thu04/01/24 at 0900, Until Discontinued, Routine 0833 (Given - Provider: Dian Benoit) 1006 (Given - Provider: Caron Barrera RN) 0853 (Given - Provider: Caron Barrera RN) rivaroxaban (Xarelto) tablet 10 mg 10 mg, Oral, Daily with dinner, First dose on Thu04/07/24 at 1800, Until Discontinued, Routine 1721 (Given - Provider: Dian Benoit) 1804 (Given - Provider: Caron Barrera, LEYDA) 1800 (Canceled Entry - Provider: Automatic Discharge Provider - Comment: Automatically canceled at discontinue of medication order) sodium chloride 0.9 % flush 10 mL(Linked Group 1) 10 mL, Intravenous, Every 12 hours, First dose on Thu03/23/24 at 0600, Until Discontinued, Routine 0518 (Given - Provider: Chen Kurtz RN)1721 (Given - Provider: Dian Benoit) 0522 (Given - Provider: Chen Kurtz RN)1804 (Given - Provider: Caron Barrera RN) 0510 (Given - Provider: Tarah Barton)1800 (Canceled Entry - Provider: Automatic Discharge Provider - Comment: Automatically canceled at discontinue of medication order) tamsulosin (Flomax) 24 hr capsule 0.8 mg 0.8 mg, Oral, Daily, First dose on Thu03/25/24 at 0900, Until Discontinued, Routine 0833 (Given - Provider: Dian Benoit) 1005 (Given - Provider: Caron Barrera RN) 0853 (Given - Provider: Caron Barrera, LEYDA) theophylline ER (Ananda-Dur) 12 hr tablet 300 mg 300 mg, Oral, Daily, First dose on Thu03/25/24 at 0900, Until Discontinued, Routine 0842 (Given - Provider: Dian Benoit) 1005 (Given - Provider: Caron Barrera, LEYDA) 1035 (Given - Provider: Caron Barrera RN) PRN Medication Order 04/10/2024 04/11/2024 04/12/2024 acetaminophen (Tylenol) tablet 1,000 mg 1,000 mg, Oral, Every 6 hours PRN, Starting on Thu04/06/24 at 1400, Until Thu04/12/24 at 1941, Routine, moderate pain, mild pain, use first for pain albuterol 108 (90 Base) MCG/ACT inhaler 2 puff 2 puff, Inhalation, Every 6 hours PRN, Starting on Thu03/29/24 at 1245, Until Thu04/12/24 at 1941, Routine, shortness of breath, wheezing hydrALAZINE (Apresoline) injection 10 mg 10 mg, Intravenous, Every 4 hours PRN, Starting on Rehana 03/31/24 at 1209, Until Thu04/12/24 at 194, Routine, SBP>180 2349 (Given - Provider: Betty Barton) labetalol (Normodyne,Trandate) injection 20 mg 20 mg, Intravenous, Every 4 hours PRN, Starting on Thu03/30/24 at 1846, Until Thu04/12/24 at 194, Routine, high blood pressure, SBP > 160 sustained. Hold for HR <60 methocarbamol (Robaxin) tablet 500 mg 500 mg, Oral, 4 times daily PRN, Starting on Thu04/06/24 at 1400, Until Thu04/12/24 at 194, Routine, muscle spasms, use second for pain sodium chloride 0.9 % flush 10 mL(Linked Group 1) 10 mL, Intravenous, As needed, Starting on Thu03/23/24 at 0558, Until Thu04/12/24 at 194, Routine, line care Linked Groups Order Group 1: Insert peripheral IV (COMPLETED) Once, On Thu03/23/24 at 0559, For 1 occurrence And Saline lock IV (COMPLETED) Once, On Thu03/23/24 at 0559, For 1 occurrence And sodium chloride 0.9 % flush 10 mLJump to med 10 mL, Intravenous, Every 12 hours, First dose on Thu03/23/24 at 0600, Until Discontinued, Routine And sodium chloride 0.9 % flush 10 mLJump to med 10 mL, Intravenous, As needed, Starting on Thu03/23/24 at 0558, Until Thu04/12/24 at 194, Routine, line care documented in this encounter Additional Health Concerns Infection Onset Date Last Indicated Resolved Time C. difficile Rule-Out 03/27/2024 03/27/20242023 1:10 PM EDT MRSA 03/28/2024 03/28/2024 Assessment Noted Time A Body Mass Index follow-up plan has been documented for the patient 04/12/2024 2:33 PM EDT documented as of this encounter Care Teams Sales Order Administrator Relationship Specialty Start Date End Date Pcp, [place] [address] PCP - General Family Medicine 03/23/24 documented as of this encounter
--- OUTSIDE RECORDS SUMMARY | 2024-09-30 12:52 | XMS_ITS | Encounter Summary ---
Author Organization Healthcare Address [address] [place] [address] Care Team Providers Care Spinner Hand Name Role Phone Pcp, No Primary Care Provider Unavailabl e Encounter Details Date Type Department Care Team (Latest Contact Info) Description 03/29/2024 Travel Social History Tobacco Use Types Packs/Day [...] place to sleep or slept in a prison (including now)? 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
--- OUTSIDE RECORDS SUMMARY | 2024-09-30 12:52 | XMS_ITS | Encounter Summary ---
Author Organization Healthcare Address [address] [place] [address] Care Team Providers Care Store Host Name Role Phone Unavailable Primary Care Provider Unavailabl e Encounter Details Date Type Department Care Team (Late st Contact Info) Description 06/29/2019 10:38 AM EDT - 07/02/2019 5:20 PM EDT Hospital Encounter [facility] Inpatient [address] [place] [address] Nelly Cazares MD [address] [facility] [address] [place] [address] Malignant neoplasm of rectosigmoid junction (CMS/HCC) Social History Tobacco Use Types Packs/Day Years Used Date Smoking Tobacco: Never Assessed Sex and Gender Information Value Date Recorded Sex Assigned at Male 03/23/2024 4:56 AM EDT Legal Sex Male 7:19 PM EDT Gender Identity Male 03/23/2024 4:56 AM EDT Sexual Orientation Not on file documented as of this encounter Miscellaneous Notes * Discharge Summary - Diana Thomason - 07/02/2019 12:00 AM EDT HOSPITALIZATION: Admit Date:29-Jun-2019 Discharge Date:02-Jul-2019 Discharge AttDiana Calhoun MD Admitting DiagnosisColon cancer DISCHARGE DIAGNOSIS: Colon cancer: Reason for Hospitalization Rectosigmoid adenocarcinoma HOSPITAL COURSE: Hospital Course Mr. 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 The patient tolerated the procedure well, and was successfully extubated without complications. The patient was subsequently taken to the PACU for further postoperative care per protocol and then admitted to the floor. Over the next 3 days, he was able to tolerate PO pain medicines, void spontaneously, tolerate a regular diet and have BMs. At this point, thepatient has reached maximum benefits from the present hospitalization, and ready for discharge.The p atient was discharged in stable condition without pending labs . Please follow- up with Dr. Anderson [facility] in 2 weeks. General: Awake in bed in no apparent acute distress. Vitals as above. Head: Normocephalic, atraumatic ENT: Moist mucous membranes, no oral lesions noted. CV: Regular rate and rhythm . No LE edema. Pulm: Symmetric chest rise. No increased work of breathing on room air. GI: nondistended, soft, non tender to palpation. surgical sites healing well with no acute signs ofinfection. MSK: No swollen or erythematous joints. Ext: No clubbing or cyanosis. Psych: Appropriate mood and affect. Neuro:Awake and alert. Oriented to person, place, time and situation. Follows commands. DIAGNOSTIC AND PROCEDURAL EVENTS: - 06/29: lap LAR with EEA Suicide Screening: Discharge Suicide Screen: Has this patient had a low, moderate or high suicide severity documented during their hospital stay? No. DISCHARGE INFORMATION: DispositionHome Discharge Conditionstable (signs or symptoms of potential problems absent or manageable) Discharge MedicationsFinal Medication List for Discharge Summary Discharge Medicationsalbuterol 90 mcg/inh inhalation aerosol 2 puff(s) inhaled 4 times a day, As Needed enoxaparin 40 mg/0.4 mL injectable solution 40 milligram(s) subcutaneously once a day lisinopril 20 mg oral tablet 1 tab(s) orally once a day omeprazole 20 mg oral delayed release capsule 1 cap(s) orally once a day oxyCODONE 5 mg oral capsule 1 cap(s) orally every 6 hours, As Needed -PRN pain simvastatin 40 mg oral tablet 1 tab(s) orally once a day (at bedtime) theophylline 300 mg oral tablet, extended release 1 tab(s) orally once a day Pending ResultsNo Pending Results DISCHARGE INSTRUCTIONS: Diet: No Restrictions. Resume regular at home diet. Lifting: No Restrictions. Activity: move around as you are able and do not drive while taking narcotic pain medications. Wound or Incision Care: Reason to call: feels warm or hot to the touch, is red or dark pink, is tight or swollen and looks shiny, becomes more tender or sore to the touch, wound smells bad and wound is draining pus, bleeding or coming open. Bathing: Shower any time; keep wound or bandage dry. Avoid soaking your wound; do NOT take a tub bath. Instructed patient to call if: Temperature is above 100.4. Pain is not relieved by medications. You are throwing up or have diarrhea for more than 24 hours. Recommended Follow Up Instructions: Follow Up Instructions: Follow up with: Dr. Cazares. in/on 2 weeks. - Address/Phone Number: [facility], [address] [place] [address]; . Please follow up with Ms. Margarette Villalobos at [facility] for your appointment. She will contact you and can be contacted at [email or web address]. Electronic Signatures: Radha Valdivia MD (Resident) (Signed 02-Jul-19 16:23) Authored: HOSPITALIZATION, DISCHARGE DIAGNOSIS, HOSPITAL COURSE, DIAGNOSTIC AND PROCEDURAL EVENTS, DISCHARGE INFORMATION, DISCHARGE INSTRUCTIONS, Recommended Follow Up Instructions, Suicide Screening Diana Thomason MD (Attending) (Signed 04-Jul-19 14:04) Co-Signer: HOSPITALIZATION, DISCHARGE DIAGNOSIS, HOSPITAL COURSE, DIAGNOSTIC AND PROCEDURAL EVENTS,DISCHARGE INFORMATION, DISCHARGE INSTRUCTIONS, Recommended Follow Up Instructions, Suicide Screening Last Updated: 04-Jul-19 14:04 by Diana Thomason MD (Attending) * Social Care Assessment Summary - ProviderAlexandra MD - 06/30/2019 12:00 AM EDT Patient Name: SAE ALEXANDER Date of : 1950 Initial Evaluation Note Initial Evaluation Note Information Obtained From: Answers: Patient Current Living Situation Answers: Family Dwelling Type Answers: House - Single Floor Housing Circumstances - Select All That Apply Answers: None applicable What is Patient's Plan at Discharge Answers: Return to Home Who Will Provide Assistance Post-Discharge? Answers: Family , son, sister How Many Hours is/are the Caregiver(s) Available? Answers: 24 Hours Functional Status Prior to Hospitalization Answers: Independent Does Patient Have Home Health? If Yes, Specify Home Health Agency. Answers: No Does the Patient Have Home Infusion or Dialysis? If Yes, Specify Agency. Answers: No Home Infusion, Answers: No Dialysis Does Patient Have Any of the Following Hospital Equipment or DME? If Yes, Specify Type of Equipment/DME. Answers: None Does Patient Have Current DME Provider? If Yes, Specify Company. Answers: No Does Patient have a Primary Care Provider? Answers: Yes (if not listed or incorrect, please place Change ADT order in [facility] for registration to update PCP) Transportation Home at Time of Discharge Answers: Family/Friend Transportation to Follow up Appointments Answers: Family or Friend will Provide Does Patient Have Living Will/Advance Directives? If Yes, Instruct Patient/Family to Provide a Copy. Answers: No Does Patient Have a Power of Camera Mechanic? If Yes, Please Specify Who and Instruct Patient/Family to Provide a Copy of Form. Answers: No Medical POA, Answers: No Financial POA Does Patient Have a Guardian? If Yes, Please Specify Who and Request a Copy of Legal Form. Answers: No Additional Comments: Notes: Pt admitted for colon cancer, lap lar. Met with pt at bedside, verified information. Pt has a PCP, Jair Molina, with the last visit approx 2 months ago. Pt lives with his , who is able to provide assistance at home if needed. Pt has [employer] Medicare as his insuance. Transportation home will be provided by his son. Pt has listed his son, Stanley Alexander, as his emergency contact, phone # [phone]. Pt obtains medications from [facility]. Pt currently does not have DME or HH services. Anticipate no needs at this time. Will continue to follow and assist with d/c needs as they arise. Electronically signed by: Isela Jane * Op Note - Provider, MD Alexandra - 06/29/2019 12:00 AM EDT [place], [place] OPERATIVE REPORT Patient Name: SAE ALEXANDER [facility] Number: [id number] Date of : 1950 Date of Admission: 06/29/2019 Date of Procedure: 06/29/2019 Attending Physician: NELLY CAZARES MD Patient Location: [facility] PREOPERATIVE DIAGNOSIS: Rectal cancer. POSTOPERATIVE DIAGNOSIS: Rectal cancer. PROCEDURE PERFORMED: 1. Laparoscopic low anterior resection. 2. Laparoscopic mobilization of splenic flexure. 3. Exclusion of small bowel from pelvis with omental flap. ATTENDING SURGEON: Nelly Cazares MD, present throughout procedure PRODUCT MARKETING DIRECTOR SURGEON: Andrew Lehman MD ANESTHESIA: General anesthesia. ESTIMATED BLOOD LOSS: 50 mL. SPECIMENS: 1. Sigmoid colon. 2. Rectum. COMPLICATIONS: None. INDICATIONS FOR PROCEDURE: Mr. Alexander is a 68-year-old male with mass located in the upper rectum. Biopsy-proven adenocarcinoma. No evidence of metastatic disease. Scheduled for low anterior resection. All risks, benefits, goals, and alternatives were discussed with Mr. Alexander. The patient agreed to the above-stated procedure. FINDINGS: Large tumor present in the upper rectum at the level of the peritoneal reflection. Low anterior resection performed with primary anastomosis. DESCRIPTION OF PROCEDURE: The patient was properly identified and consent was obtained. The patient was brought to the operating room. Transferred to the operating room table. General anesthesia was administered. The patient was placed in lithotomy position. Abdomen was prepped and draped in standard surgical fashion. Midline abdominal incision was made above and below the umbilicus. The abdominal cavity was entered without difficulty. An Applied GelPort with wound protector was placed in the midline wound. Two 12 mm trocars were placed in the lower abdomen. Hand assist technique was used for mobilization of the left colon and splenic flexure. The peritoneal reflection was released using laparoscopic LigaSure. Toldt's fascia was left intact. Lesser sac was entered. Omentum was taken away from the transverse colon. Full splenic flexure mobilization was performed. Sigmoid colon was then mobilized. The inferior mesenteric artery was identified and isolated. Divided with an Endo-PATRICIA stapler at its takeoff from the aorta. IMV was divided in a similar fashion. The left ureter was identified and protected. Presacral space was entered. Loose areolar tissue was divided sharply under direct visualization. Lateral stalks were divided sharply. Mobilization extended below the level of the peritoneal reflection. The mass was easily palpable in the upper rectum. After mobilization of the rectum, the rectum was divided with an Endo-PATRICIA stapler. Two loads were required. Rectum and sigmoid colon were then eviscerated. Divided proximally with a pursestring clamp. Specimen included the sigmoid colon and rectum as well as the corresponding mesentery with high ligation of the JOSE and IMV. Sympathetic nerves were identified and protected. Proximal colon was then utilized for anastomosis. A 31 EEA stapler was utilized. Anvil was secured in the proximal colon. Under direct laparoscopic visualization, the stapler was advanced to the rectal stump. Gentry advanced in the mid portion of the staple line. Stapler and anvil were engaged and released. Two full-thickness rings of tissue returned. Leak test performed. No evidence of leaks, bubbles or anastomotic dehiscence using insufflation with rigid proctoscopy. Anastomosis was widely patent. The mesentery was properly aligned. Not under tension. The small bowel was then returned to the abdominal cavity in anatomical position. The omentum was further mobilized to create an omental flap that was laid and affixed into the pelvis to exclude the small bowel from entering the pelvis in the postoperative period. GelPort removed. Ports were removed. Port sites closed. Midline fascia closed with interrupted Maxon suture. Skin closed. Sterile dressing applied. The patient tolerated the procedure well. The patient was transferred to the postanesthetic care unit without surgical or anesthetic complication. SPECIMEN: As above. Electronically Signed By: NELLY CAZARES MD 06/29/2019 06:35 P NELLY CAZARES MD Attending Surgeon, [facility] JS/[id number] Dictated Date/Time: 06/29/2019 18:08 Bottomer Operator Date/Time: 06/29/2019 18:25 Document Number: [id number] Job Number: [id number] REFERRING PHYSICIAN: PRIMARY CARE PHYSICIAN: JAIR MOLINA MD [address] [place] [address] NON- REFERRING PHYSICIAN: DICTATED CC: Document is Signed NOTE: supplied by interface * Op Note - Nelly Cazares - 06/29/2019 12:00 AM EDT Brief Operative Progress Note: PRE-OP DIAGNOSIS 1: Rectosigmoid adenocarcinoma. Post-Op Diagnosis: Same. INDICATIONS FOR SURGERY/PROCEDURE: Malignancy. Primary Surgeon: Sage. Die Cast Engineer(s): Dominik. ANESTHESIA: GA-ET. Description of Findings: Mass identified in upper rectum near peritoneal reflection. SURGICAL PROCEDURES PERFORMED: Laparoscopic low anterior resection. Specimens/Tissues Removed: Sigmoid, rectum. Estimated Blood Loss: 50 ml. DRAINS: None. Procedure: I was present for the entire procedure. Attending Physician Comments: Low anterior resection. Electronic Signatures: Nelly Cazares MD (Attending) (Signed 07-Jul-19 08:33) Authored: General Co-Signer: Andrew Davenport MD (Resident) (Signed 29-Jun-19 15:41) Authored: General Last Updated: 07-Jul-19 08:33 by Nelly Cazares MD (Attending) * Procedures - Sae Healy - 06/29/2019 12:00 AM EDT Pain Procedure: The procedure that was performed was a nerve block. This procedure was performed by Dr. Hollis 29-Jun-2019. Indications for this procedure included post-op pain. History and Physical reviewed and appropriate. Risks, benefits and alternatives to the procedure have been discussed and informed consent was obtained from the patient. Sedative medication was not administered. Non- invasive monitors including BP cuff, pulse oximeter, etc, were applied and vital signs were monitored throughout the procedure. Hand hygiene performed. The lateral abdominal region, bilaterally was prepped with chlorhexidine under sterile conditions. The clinicians performing this procedure donned a hat and mask. Anticoagulation and antiplatelet orders reviewed and confirmed. Final Time Out performed immediately prior to procedure. A 4 inch stimuplex was placed into the lateral abdominal region, bilaterally. The procedure was performed without difficulty. Negative Paresthesias throughout. Type of Block: TransversusAbdominisPlane(TAP). Solution Injected .25% Ropivicaine, per site 30 mL. Serial aspirations negative throughout the procedure. The patient tolerated the procedure well with no complications Ultrasound used. Upon completion of procedure, the patient's mental status was intubated and sedated and vital signs Unremarkable. Additional Comments: Block performed in the OR immediately after induction of general anesthesia. Moderate Sedation: Vital Signs: Vital SignsPlease reference nursing procedural sedation documentation. Attending Note/Attestation: ASSESSMENT: Acceptable candidate for single shot nerve block at Dr. Cazares request for postoperative pain management. PLAN: B/l TAP blocks in OR. I was present for the entire procedure. Electronic Signatures: Sae Healy MD (Attending) (Signed 29-Jun-19 14:35) Authored: Attending Note/Attestation Co-Signer: Pain Procedure, Moderate Sedation Mark Hollis MD (Resident) (Signed 29-Jun-19 14:15) Authored: Pain Procedure, Moderate Sedation Last Updated: 29-Jun-19 14:35 by Sae Healy MD (Attending) documented in this encounter Plan of Treatment Pending Results Name Type Priority Associated Diagnoses Date /Time Type and Screen Lab STAT 9 11:52 AM EDT documented as of this encounter Procedures Procedure Name Priority Date/Time Associated Diagnosis Comments CBC W/O DIFFERENTIAL STAT 07/02/2019 8:20 AM EDT PHOSPHORUS, PLASMA STAT 07/02/2019 8: 20 AM EDT MAGNESIUM, PLASMA STAT 07/02/2019 8:2 0 AM EDT BASIC METABOLIC PANEL, PLASMA STAT 07/02/2019 8:20 AM EDT CBC W/O DIFFERENTIAL Timed 06/30/2019 3:37 AM EDT PHOSPHORUS, PLASMA Timed 06/30/2019 3: 37 AM EDT MAGNESIUM, PLASMA Timed 06/30/2019 3:3 7 AM EDT BASIC METABOLIC PANEL, PLASMA Timed 06/30/2019 3:37 AM EDT SURGPATH DATA CONVERSION Routine 06/29/2019 4:04 PM EDT CBC W/O DIFFERENTIAL STAT 06/29/2019 3:58 PM EDT PHOSPHORUS, PLASMA STAT 06/29/2019 3: 58 PM EDT MAGNESIUM, PLASMA STAT 06/29/2019 3:5 8 PM EDT BASIC METABOLIC PANEL, PLASMA STAT 06/29/2019 3:58 PM EDT TYPE AND SCREEN STAT 06/29/2019 11:52 AM EDT documented in this encounter Results * (ABNORMAL) CBC W/O Differential (07/02/2019 8:20 AM EDT) [facility] WBC Count 9.72 3.7 - 10.3 k/uL [facility] RBC Count 4.63 4.6 - 6.1 M/uL [facility] HGB 14.7 13.7 - 17.5 g/dL [facility] HCT 40.2 40 - 51 % [facility] Platelet Count 170 155 - 369 k/uL [facility] MCV 87 79 - 98 fL [facility] MCH 31.7 26 - 32 pg [facility] MCHC 36.6(H) 30.7 - 35.5 g/dL [facility] RDW 12.5 12.4 - 14.9 % [facility] MPV 10.3 8.8 - 12.5 fL [facility] NRBC COUNT 0.0 0 % [facility] 07/02/2019 8:20 AM EDT 07/02/2019 8:49 AM EDT Radha Valdivia MD LAB BLOOD ORDERABLES Final Result Performing Organization Address [facility] de Phone Number [facility] * (ABNORMAL) Phosphorus, Plasma (07/02/2019 8:20 AM EDT) Phosphorus, Plasma 1.1(L) 2.5 - 4.5 mg/dL [facility] 07/02/2019 8:20 AM EDT 07/02/2019 8:49 AM EDT Radha Valdivia MD LAB BLOOD ORDERABLES Final Result Performing Organization Address [facility] de Phone Number [facility] * (ABNORMAL) Magnesium, Plasma (07/02/2019 8:20 AM EDT) Magnesium, Plasma 1.7(L) 1.9 - 2.4 mg/dL [facility] 07/02/2019 8:20 AM EDT 07/02/2019 8:49 AM EDT Radha Valdivia MD LAB BLOOD ORDERABLES Final Result Performing Organization Address [facility] de Phone Number [facility] * (ABNORMAL) Basic Metabolic Panel, Plasma (07/02/2019 8:20 AM EDT) Glucose, Plasma 107(H) 74 - 99 mg/dL [facility] BUN, Plasma 9 8 - 23 mg/dL [facility] Creatinine, Plasma 0.66(L) 0.80 - 1.30 mg/dL [facility] BUN/Creatinine Ratio 14 8 - 20 [facility] Sodium, Plasma 139 136 - 145 mmol/L [facility] Potassium, Plasma 3.5(L) 3.7 - 4.8 mmol/L [facility] Chloride, Plasma 102 97 - 107 mmol/L [facility] CO2, Plasma 23 22 - 29 mmol/L [facility] Anion Gap 14 6 - 16 mmol/L [facility] Calcium, Plasma 8.8(L) 8.9 - 10.2 mg/dL [facility] eGFR >60 >60 SEE NOTE [facility] eGFR, if AFR/AM >60 >60 SEE NOTE [facility] Comment: (NOTE) eGFR = estimated GFR; eGFR units = mL/min/1.73 sq meters Chronic Kidney Disease is considered if eGFR <60 mL/min/1.73 sq meters Kidney failure is considered if eGFR is <15 mL/min/1.73 sq meters. eGFR assumes steady state plasma creatinine concentration; not applicable if renal function is rapidly changing or patient is on dialysis. 07/02/2019 8:20 AM EDT 07/02/2019 8:49 AM EDT Radha Valdivia MD LAB BLOOD ORDERABLES Final Result Performing Organization Address [facility] de Phone Number [facility] * (ABNORMAL) Phosphorus, Plasma (06/30/2019 3:37 AM EDT) Phosphorus, Plasma 2.4(L) 2.5 - 4.5 mg/dL [facility] 06/30/2019 3:37 AM EDT 06/30/2019 3:55 AM EDT Nelly Cazares MD LAB BLOOD ORDERABLES Final Res ult Performing Organization Address [facility] de Phone Number [facility] * (ABNORMAL) Magnesium, Plasma (06/30/2019 3:37 AM EDT) Magnesium, Plasma 1.6(L) 1.9 - 2.4 mg/dL [facility] 06/30/2019 3:37 AM EDT 06/30/2019 3:55 AM EDT Nelly Cazares MD LAB BLOOD ORDERABLES Final Res ult Performing Organization Address [facility] Co de Phone Number [facility] * (ABNORMAL) Basic Metabolic Panel, Plasma (06/30/2019 3:37 AM EDT) Glucose, Plasma 143(H) 74 - 99 mg/dL [facility] BUN, Plasma 14 8 - 23 mg/dL [facility] Creatinine, Plasma 0.87 0.80 - 1.30 mg/dL [facility] BUN/Creatinine Ratio 16 8 - 20 [facility] Sodium, Plasma 139 136 - 145 mmol/L [facility] Potassium, Plasma 4.5 3.7 - 4.8 mmol/L [facility] Chloride, Plasma 103 97 - 107 mmol/L [facility] CO2, Plasma 22 22 - 29 mmol/L [facility] Anion Gap 14 6 - 16 mmol/L [facility] Calcium, Plasma 9.1 8.9 - 10.2 mg/dL [facility] eGFR >60 >60 SEE NOTE [facility] eGFR, if AFR/AM >60 >60 SEE NOTE [facility] Comment: (NOTE) eGFR = estimated GFR; eGFR units = mL/min/1.73 sq meters Chronic Kidney Disease is considered if eGFR <60 mL/min/1.73 sq meters Kidney failure is considered if eGFR is <15 mL/min/1.73 sq meters. eGFR assumes steady state plasma creatinine concentration; not applicable if renal function is rapidly changing or patient is on dialysis. 06/30/2019 3:37 AM EDT 06/30/2019 3:55 AM EDT Nelly Cazares MD LAB BLOOD ORDERABLES Final Res ult [facility] * (ABNORMAL) CBC W/O Differential (06/30/2019 3:37 AM EDT) WBC Count 16.55(H) 3.7 - 10.3 k/uL [facility] RBC Count 5.38 4.6 - 6.1 M/uL [facility] HGB 17.4 13.7 - 17.5 g/dL [facility] HCT 48.4 40 - 51 % [facility] Platelet Count 221 155 - 369 k/uL [facility] MCV 90 79 - 98 fL [facility] MCH 32.3(H) 26 - 32 pg [facility] MCHC 36.0(H) 30.7 - 35.5 g/dL [facility] RDW 12.7 12.4 - 14.9 % [facility] MPV 10.3 8.8 - 12.5 fL [facility] NRBC COUNT 0.0 0 % [facility] 06/30/2019 3:37 AM EDT 06/30/2019 3:53 AM EDT us Nelly Cazares MD LAB BLOOD ORDERABLES Final Res ult [facility] * Surgical Pathology (06/29/2019 4:04 PM EDT) Specimen from colon (specimen) 06/29/2019 4:04 PM EDT 06/29/2019 4:04 PM EDT Narrative [facility] - 07/05/2019 1:16 PM EDT [place], [place] [address] MR #: [id number] SAE ALEXANDER 1950 (Age: 68) ??MW Collect Date: 06/29/2019 16:04 Receipt Date: 06/29/2019 16:04 Page 1 DEPARTMENT OF PATHOLOGY AND LABORATORY MEDICINE SURGICAL PATHOLOGY REPORT Fax: ??[phone] ?[phone] Email: [email or web address] ? ATTENDING MD: Flora Cazares MD ? Service: [facility] ? Location: [facility] OTHER MD(S): ?Reported: 07/04/2019 09:45 DIAGNOSIS RECTOSIGMOID COLON, LOW ANTERIOR COLON RESECTION: ??- INVASIVE MODERATELY DIFFERENTIATED ADENOCARCINOMA (pT3, pN1a). SEE TEMPLATE. ??- METASTATIC ADENOCARCINOMA IDENTIFIED IN ONE OF 13 LYMPH NODES (11/28). ??- MARGINS OF EXCISION NEGATIVE FOR TUMOR. ??- INCIDENTAL ADJACENT TUBULAR ADENOMA. ? Electronically Signed Out ? mmt/07/04/2019 Calli Gillis M.D. ?? CAP Cancer Checklist COLON AND RECTUM, Resection Protocol web posting date: 2017-05-15 ? Procedure: ?? Low anterior colon resection Tumor Site: ?? Rectosigmoid region Histologic Type: ?? Adenocarcinoma Histologic Grade: ?? G2: Moderately differentiated Tumor Size: ?? 6 Centimeters (cm) Tumor Deposits: ?? Not identified Tumor Extension: ?? Tumor invades through the muscularis propria into pericolorectal tissue Macroscopic Tumor Perforation: ?? Not identified Lymphovascular Invasion: ?? Present Perineural Invasion: ?? Not identified Treatment Effect: ?? No known presurgical therapy Margins: ?? All margins are uninvolved by invasive carcinoma, high-grade dysplasia, intramucosal adenocarcinoma, and adenoma Margins Examined: ?? Proximal, Distal, Radial or Mesenteric Distance of Tumor from Radial Margin: ?? 2.8 Centimeters (cm) ??designated mesenteric Number of Lymph Nodes Involved: ?? 1 Number of Lymph Nodes Examined: ?? 13 PATHOLOGIC STAGE CLASSIFICATION (pTNM, AJCC 8th Edition) ? TNM Descriptors: ?? Not applicable Primary Tumor (pT): ?? pT3: Tumor invades through the muscularis propria into pericolorectal tissues Regional Lymph Nodes (pN): ?? pN1a: One regional lymph node is positive PROCEDURES/ADDENDA Addendum ? Addendum Diagnosis IMMUNOHISTOCHEMISTRY (IHC) TESTING FOR MISMATCH REPAIR (MMR) PROTEINS IS PERFORMED AND THE RESULTS ARE FOLLOWS: ?? MLH1 ?Intact nuclear expression ?? MSH2 ?Intact nuclear expression ?? MSH6 ?Intact nuclear expression ?? PMS2 ?Intact nuclear expression ?? Background nonneoplastic tissue/internal control with intact nuclear expression IHC Interpretation ?No loss of nuclear expression of MMR proteins: low probability of microsatellite instability-high ?(MSI-H)# ?# There are exceptions to the above IHC interpretations. These results should not be considered in isolation, and clinical correlation with genetic counseling is recommended to assess the need for germline testing. All controls show appropriate reactivity. All immunohistochemistry, in situ hybridization, and histochemical tests were developed by and are performed at the [facility], [address] [place] [address]. All tests reported here, except those addressing HER2 and PD-L1 expression as predictive markers, have not been cleared by or approved by the [place] Food and Drug Administration (FDA). The FDA has determined that such clearance or approval is not necessary. The laboratory is regulated under CLIA as qualified to perform high-complexity testing. The tests are used for clinical purposes. They should not be regarded as investigational or for research. ? Electronically Signed Out ? 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 Received is a partial colectomy specimen consisting of sigmoid colon and small rectum measuring 23 cm in length and up to 4.2 cm in diameter. The distal end margin is stapled and the proximal end is open. The serosa is pink-dunham and covered by abundant mesenteric fat. There are no obvious perforations. Opening the lumen reveals a large, broad- based red-brown sessile mass measuring 6 x 3.6 cm and measures approximate 4 cm from the closest margin (distal). On cut section, the mass measures up to 1.5 cm in thickness and grossly extends into the muscularis and is at least 2.8 cm from the mesenteric resection margin (inked black). Gross serosal involvement is not identified (inked blue). Also identified located just adjacent to the mass (approximately 0.5 cm proximal) is a 1.7 x 1.4 by her 0.9 cm red-brown pedunculated polyp. The rest of the colon mucosa is submitted A1-A11. Cassette summary: A1: ??Distal end margin submitted en face; A2: ??Proximal end margin submitted en face; A3-A6: ??Director Economic sections of mass; A7: ??Overlying mesenteric margin including mesenteric vessels; A8-A9: ??Pedunculated polyp trisected with a sectioned to the adjacent mass in A8; A10-A11: ??Multiple intact candidate lymph nodes; malik/06/30/2019 Michael Montes A resident may have participated in this service. ??A pathologist has performed and is responsible for the reported pathologic evaluation. ICD: C19 ? 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 SNOMED CODES: A; [id number] F: A; [id number], [id number], 06343, 03506(3) Nelly Cazares MD LAB PATHOLOGY ORDERABLES Final Result [facility] * Phosphorus, Plasma (06/29/2019 3:58 PM EDT) Pathologist [facility] Phosphorus, Plasma 3.9 2.5 - 4.5 mg/dL [facility] 06/29/2019 3:58 PM EDT 06/29/2019 4:28 PM EDT Nelly Cazares MD LAB BLOOD ORDERABLES Final Res ult [facility] * (ABNORMAL) Magnesium, Plasma (06/29/2019 3:58 PM EDT) Pathologist [facility] Magnesium, Plasma 1.6(L) 1.9 - 2.4 mg/dL [facility] 06/29/2019 3:58 PM EDT 06/29/2019 4:28 PM EDT Nelly Cazares MD LAB BLOOD ORDERABLES Final Res ult [facility] * (ABNORMAL) Basic Metabolic Panel, Plasma (06/29/2019 3:58 PM EDT) Glucose, Plasma 173(H) 74 - 99 mg/dL [facility] BUN, Plasma 17 8 - 23 mg/dL [facility] Creatinine, Plasma 1.04 0.80 - 1.30 mg/dL [facility] BUN/Creatinine Ratio 16 8 - 20 [facility] Sodium, Plasma 138 136 - 145 mmol/L [facility] Potassium, Plasma 4.0 3.7 - 4.8 mmol/L [facility] Chloride, Plasma 101 97 - 107 mmol/L [facility] CO2, Plasma 19(L) 22 - 29 mmol/L [facility] Anion Gap 18(H) 6 - 16 mmol/L [facility] Calcium, Plasma 8.9 8.9 - 10.2 mg/dL [facility] eGFR >60 >60 SEE NOTE [facility] eGFR, if AFR/AM >60 >60 SEE NOTE [facility] Comment: (NOTE) eGFR = estimated GFR; eGFR units = mL/min/1.73 sq meters Chronic Kidney Disease is considered if eGFR <60 mL/min/1.73 sq meters Kidney failure is considered if eGFR is <15 mL/min/1.73 sq meters. eGFR assumes steady state plasma creatinine concentration; not applicable if renal function is rapidly changing or patient is on dialysis. 06/29/2019 3:58 PM EDT 06/29/2019 4:28 PM EDT us Nelly Cazares MD LAB BLOOD ORDERABLES Final Res ult [facility]QUEST * (ABNORMAL) CBC W/O Differential (06/29/2019 3:58 PM EDT) WBC Count 25.53(H) 3.7 - 10.3 k/uL [facility] RBC Count 5.38 4.6 - 6.1 M/uL [facility] HGB 17.7(H) 13.7 - 17.5 g/dL [facility] HCT 47.8 40 - 51 % [facility] Platelet Count 237 155 - 369 k/uL [facility] MCV 89 79 - 98 fL [facility] MCH 32.9(H) 26 - 32 pg [facility] MCHC 37.0(H) 30.7 - 35.5 g/dL [facility] RDW 12.5 12.4 - 14.9 % [facility] MPV 10.5 8.8 - 12.5 fL [facility] NRBC COUNT 0.0 0 % [facility] 06/29/2019 3:58 PM EDT 06/29/2019 4:22 PM EDT us Nelly Cazares MD LAB BLOOD ORDERABLES Final Res ult [facility] documented in this encounter Visit Diagnoses Diagnosis Malignant neoplasm of rectosigmoid junction (CMS/HCC) Malignant neoplasm of rectosigmoid junction documented in this encounter
--- OUTSIDE RECORDS SUMMARY | 2024-09-30 12:52 | XMS_ITS | Encounter Summary ---
Author Organization Healthcare Address [address] [place] [address] Care Team Providers Care Weigh Machine Operator Name Role Phone Pcp, No Primary Care Provider Unavailabl e Encounter Details Date Type Department Care Team (Latest Contact Info) Description 03/28/2024 Travel Social History Tobacco Use Types Packs/Day [...] place to sleep or slept in a fci (including now)? 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
--- OUTSIDE RECORDS SUMMARY | 2024-09-30 12:52 | XMS_ITS | Encounter Summary ---
Author Organization Healthcare Address [address] [place] [address] Care Team Providers Care Medical Assistant Cardiology Name Role Phone Pcp, No Primary Care Provider Unavailabl e Encounter Details Date Type Department Care Team (Latest Contact Info) Description 03/26/2024 Travel Social History Tobacco Use Types Packs/Day [...] place to sleep or slept in a senior living (including now)? 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
--- OUTSIDE RECORDS SUMMARY | 2024-09-30 12:52 | XMS_ITS | Encounter Summary ---
Author Organization Healthcare Address [address] [id number] Care Team Providers Care Early Childhood Services Coordinator Name Role Phone Pcp, No Primary Care Provider Unavailabl e Reason for Visit * Reason Comments Abscess * Auth/Cert (Routine) Specialty Diagnoses / Procedures Referred By Contac t Referred To Contact Diagnoses Rectal cancer (CMS/HCC) Dysuria, rectal mass Jeremy Cazares MD [id number] [place] [address] Phone: tel: fax: [facility] [address] [place] [address] Phone: tel: Referral ID Status Reason Start Date Expiration Date Visits Re quested Visits Authorized [id number] 1 1 Encounter Details Date Type Department Care Team (Late st Contact Info) Description 03/30/2024 11:40 AM EDT - 03/30/2024 2:00 PM EDT Surgery [facility] O[facility]ATING [facility] [address] [place] [id number] Jeremy Cazares MD [id number] [place] [address] CREATION, COLOSTOMY, OPEN, FLEXIBLE SIGMOIDOSCOPY Surgery Details Date/Time Status Location OR Service Patient Class Case Class Case Type Trauma Case? 03/30/2024 11:40 AM Posted GRETCHEN OR 2OR 10 Colorectal Inpatient E-Electi ve Panel 1 Procedure LRB Anes Op Region Wound Class Comments CREATION, COLOSTOMY, OPEN, FLEXIBLE SIGMOIDOSCOPY N/A Choice Abdomen Class IV/ Dirty or Infected Surgeon Surgeon Role Service Panel Jeremy Cazares MD Primary Colorectal 1 aLlit Newton MD Resident - Assisting General Surge ry 1 Kirk Gordon MD Resident - Assisting General Surger y 1 Special Needs Skytron Bed, SSI Colon Bundle, Colonoscope, Endocart documented in this encounter Social History Tobacco Use Types Packs/Day Years [...] first t cristi in the morning (EYE-HOT ROLL LAMINATOR) to steady your nerves or to get [...] Sign Reading Time Taken Comments Blood Pressure 182/96 03/30/2024 12:[address] Meza. He is ok with current BP. No additional interventions needed. Pulse 74 03/30/2024 12:01 PM EDT Temperature 36.8 ??C (98.3 ??F) 03/30/2024 1 0:30 AM EDT Respiratory Rate 21 03/30/2024 12:0 1 PM EDT Oxygen Saturation 93% 03/30/2024 12: 01 PM EDT Inhaled Oxygen Concentration - - Weight 54 kg (119 lb 0.8 oz) 03/23/2024 4:09 AM EDT Height 160 cm (5' 2.99 ) 03/23/2024 5:0 0 AM EDT Body Mass Index 21.09 03/31/2024 6:20 [...] call withan appointment time. Questions: Call the [facility] at [phone] during business hours on weekdays or call [facility]'s after hours at [phone] to speak with a resident pottery decoration designer for Colorectal surgery after 5pm or on [...] of this encounter Miscellaneous Notes * Sofya Ramos, RN - 04/12/2024 2:34 PM EDT Images from the original note were not included. [id number] Discharge Instructions: Eating a Soft, Pine Diet You have been prescribed a soft, [...] flavors) o Taco chips or nachos o [place] chips o Popcorn, popcorn cakes, or rice cakes o Crackers with nuts, seeds, or spicy seasonings o Lithuanian fries ?? Fried or greasy foods ?? [...] as advised. Last Reviewed Date: 2022 ?? 8348-1801 [employer]. All rights reserved. This information is not intended as a substitute for professional medical care. Always follow your healthcare professional's instructions. * [facility]o [facility] - Sofya Blount RN - 04/12/2024 2:33 PM EDT Images from the original note were not included. [id number] Fall Prevention Falls often take place due [...] more often. Last Reviewed Date: 2021 ?? [id number] [employer]. All rights reserved. This information is not intended as a substitute for professional medical care. Always follow your healthcare professional's instructions. * [facility] Sofya Blount [facility] - 04/12/2024 2:33 [...] stress ?? depression ?? sleep problems * Marilynsuzanne Nirmal - Sofya Blount RN - 04/12/2024 2:33 PM EDT Images from the original note were not included. 20720 Preventing a Surgical Site Infection A risk [...] of infection. ?? Controlled body temperature. A ejjol-svoq-zjakpc temperature during or after surgery prevents oxygen [...] and water or with an alcohol-based hand food expeditor before and after caring for you. Don?t [...] go away Last Reviewed Date: 2021 ?? 5277-8349 [employer]. All rights reserved. This information is not intended as a substitute for professional medical care. Always follow your healthcare professional's instructions. * Adeb[facility]o [facility] - Sofya Blount RN - 04/12/2024 2:32 PM EDT Images from the original note were not included. 36990 Wound Care Taking good care of your [...] ?? Bleeding that soaks the dressing ?? [place] fluid weeping from the wound ?? Increased [...] of appetite Last Reviewed Date: 2022 ?? 2778-4117 [employer]. All rights reserved. This information is not intended as a substitute for professional medical care. Always follow your healthcare professional's instructions. * [facility] Sofya Blount RN - 04/12/2024 2:32 PM EDT Images from the original note were not included. [id number] Rodriguez Catheter Care A Rodriguez catheter is [...] or fainting Last Reviewed Date: 2021 ?? 8982-3039 [employer]. All rights reserved. This information is not intended as a substitute for professional medical care. Always follow your healthcare professional's instructions. * Discharge Summary - Lalit Newton MD - 04/12/2024 2:27 PM EDT Hospitalization Admit Date/Time: 03/23/2024 4:04 AM Admitting Attending: Jeremy Cazares Discharge Date: 04/12/24 Discharge Attending Physician: Jeremy Cazares MD PCP name and Address: Pcp, Mariela [address] [place] [address] Referring provider name and address: Jorge Alberto Resendiz MD [address] [place] [address] Chief Concern, Brief History of Present Illness, and Hospital Course Sae Alexander is a 73 y.o. 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 Cazares 06/[address] [facility] on 03/23/2024 with perforated rectal cancer and [...] Your Medications These medications were sent to [facility] [place], [place] - [address] [address] [address] [address], [facility] [address] carvedilol 25 MG tablet lisinopril 40 MG [...] from the original note were not included. 76963 Colostomy: Managing Your Nutrition You don?t have [...] gas include: ?? Beer ?? Broccoli ?? Beeler sprouts ?? Cabbage ?? Cauliflower ?? [place] ?? Cucumbers ?? Dried beans ?? Milk ?? Mushrooms ?? Nuts ?? Onions ?? Peas ?? Sodas ?? Spicy foods Foods that can cause odor include: ?? Asparagus ?? Broccoli ?? Beeler sprouts ?? Cabbage ?? Cheese ?? Eggs [...] changes size. Last Reviewed Date: 2021 ?? 9934-7537 [employer]. All rights reserved. This information is not intended as a substitute for professional medical care. Always follow your healthcare professional's instructions. * [facility] Lalit Newton MD - 04/12/2024 2:27 [...] it each time you change your pouch. forms examiner front of a mirror,or use a hand [...] around the pouch. Wipe it in a lovelock around the stoma. Then let it dry [...] on or next to the toilet. Or safety engineer pressure vessels front of the toilet. Put a layer [...] need a timer.) Or use a hand food expeditor that is 60% alcohol. Releasing gas Gas [...] gas include: ?? Beer ?? Broccoli ?? Beeler sprouts ?? Cabbage ?? Cauliflower ?? [place] ?? Cucumbers ?? Dried beans ?? Milk ?? Mushrooms ?? Nuts ?? Onions ?? Peas ?? Sodas ?? Spicy foods Foods that can cause odor include: ?? Asparagus ?? Broccoli ?? Beeler sprouts ?? Cabbage ?? Cheese ?? Eggs [...] caring for the colostomy at first. A [facility] nurse or other healthcare provider can show [...] may affect how your bowel functions. Contact [facility] 72-hours before your trip at [phone]. [facility] is a helpline for travelers with disabilities, medical conditions and other special circumstances. You can get help with the security screening process. The [facility] compliance representative will need your flight number. They [...] more: ?? [employer] [place] [phone] www.uoaa.org ?? [place] [employer] [phone] www.cancer.org ?? Wound, Ostomy, and Continence Nurses Society www.wocn.org/Patients * Marilynsuzanne Nirmal - Lalit Newton MD - 04/12/2024 2:27 PM EDT Images from the original note were not included. 1366 After Colostomy Placement Before you leave the hospital Your nurse should go over: ?? Ostomy Diet Sheet ?? Understanding Your Colostomy booklet ?? Ostomy Tip sheet ?? Follow up appointment with your surgeon ?? How to make an appointment with the outpatient ostomy nurse. Call [phone]. Your nurse should give you: ?? Ostomy [...] Don?t skip doses. ?? Don?t take any pipz-zyy-mvrthwb medicine unless your healthcare provider tells you [...] Note Sae Alexander 73 y.o. male CSN: [id number] Admission: 03/23/2024 4:04 AM Primary Problem: Rectal cancer (CMS/HCC) Primary Retort Engineer: Primary Caregiver: Self Assistance Available at Discharge: Availability of Care Givers (#Hours): 24 hours Family/Retort Engineer(s) Willingness Assessed to care for patient at home: Yes Family/Retort Engineer(s) Readiness Assessed to care for patient at home: Yes Housing Circumstances-Z Codes: Housing Circumstances (select all that apply): None Applicable Discharge Facility/Level of Care Needs: Discharge Facility/Level of Care Needs: 3-Longterm Facility Patient's Choice of Community Agency(s): Patient's Choice of Community Agency(s): [facility] Patient/Family Anticipated Services at Transition: Patient/Family Anticipated [...] this date and does not require further [facility] based care. Pt's appeal for insurance approval for acute rehab was approved. Pt will discharge to [facility] this date with transportationby Caliber/wheelchair. TANIA provided and update to the team and the facility liaison. TANIA provided thenumber for nurse to call report - [phone] and med information[email or web address] to the team, and will fax the discharge summary to [phone]. The patient does not have any identified SW concerns identified at this time. SW will continue to remain available and will follow up with DC planning and needs as appropriate. Edda Ortiz SERVICE VEHICLE OPERATOR, MOTOR VEHICLE EMISSIONS INSPECTOR Aperture Mask Etcher Senior Department of Case Management [facility] * Gregory Fall - 04/12/2024 11:32 AM EDT Images from the original note were not included. [id number] Rivaroxaban Oral Tablet 10 mg Brands: Xarelto [...] about all medicines taken. Include prescription and diqu-gvk-hhdlduv medicines, vitamins, and herbal medicines. Speak with [...] the risks and benefits. Do not take [place]'s wort while on this medicine. Do not [...] you have any questions about this medicine. [email or web address]://[email or web address]/[email or web address]/1153 IMPORTANT NOTE: This document tells you briefly how to take your medicine, but it does not tell youall there is to know about it. Your doctor or pharmacist may give you other documents about your medicine. Please talk to them if you have any questions. Always follow their advice. There is a more complete description of this medicine available in Polish. Scan this code on your smartphone or tablet or use the web address below. You can also ask your pharmacist for a printout. If you have any questions, please ask your pharmacist. The display and use of this drug information is subject to Terms of Use. Copyright(c) 2023 Veronica. ?? 0599-6782 [employer]. All rights reserved. This information is not intended as a substitute for professional medical care. Always follow your healthcare professional's instructions. * Progress Notes - Lalit Newton MD - 04/12/2024 8:57 AM EDT Images from the original note were not included. [facility] Department of Surgery Division of Colon & [...] with Dr. Cazares 06/[address] [facility] on 03/23/2024 with perforated rectal cancer and [...] from the original note were not included. [facility] Department of Surgery Division of Colon & [...] Edited by: Lalit Newton MD at 04/11/2024 4486 Review of Systems: Relevant review of systems [...] from the original note were not included. [facility] of Medicine Department of Surgery Division of Colon & [...] year old male admitted for Rectal cancer ([facility]/HCC) who is now status post flexible sigmoidoscopy [...] from the original note were not included. [facility] Department of Surgery Division of Colon & [...] Problems Problem List * (Principal) Rectal cancer ([facility]/HCC) Present on Admission: Rectal cancer (CMS/HCC) Mr. [...] BID and Lisinopril 30mg daily -Abx: Zosyn (), Vanc (03/26), micafungin (03/27-04/04) [...] Evaluation Note Sae Alexander 73 y.o. male [facility]: [id number] Room/Bed 129/129A Nutrition evaluation type: follow-up Reason [...] Procedure Laterality Date CHOLECYSTECTOMY N/A Cholecystectomy from [facility] * Per notes: LAR Social history: Social History Tobacco Use Smoking status: Former Tobacco comments: Former smoker, [id number] 1.5 ppd Substance Use Topics Alcohol use: [...] weak Participants in Care Family/Caregiver Present: No Yarn Cleaner: Not Applicable Presentation Oxygen Therapy: None (Room [...] Mobility Bed Mobility Exam: Scooting/Bridging Level of [place]: Stand-by assist (scooting to eob.) Physical/Nonphysical Assist: Verbal Cues, Nonverbal cues (demo/gestures) Bed Mobility Exam: Supine to Sit Level of [place]: Stand-by assist Physical/Nonphysical Assist: Verbal Cues, Nonverbal cues (demo/gestures), HOB elevated Transfers Transfer Interventions: Sit to/from stand transfers performed from various surface heights and compliances to assist with transference of skills across environmental differences. Transfer Exam: Sit to stand Level of [place]: Contact guard (x4 reps throughout session) Physical/Nonphysical Assist: Verbal Cues, Nonverbal cues (demo/gestures) Assistive Device: Walker, rolling Transfer Exam: Stand to Sit Level of [place]: Contact guard Physical/Nonphysical Assist: Verbal Cues, Nonverbal [...] from the original note were not included. [employer] Department of Surgery Division of Colorectal Surgery Surgery Progress Note 04/08/24 Sae Alexander Subjective Subjective: HPI 73M with prior LAR [...] Emotional support Outcomes Patient Outcomes Appreciative of Mold Burner Support Follow-Up Last Date of Pastoral Care Contact 04/07/2024 Pastoral Care Comment A nursing-staff referral visit with patient at bedside. Patient shared about his life and health. Patient mentioned that he will be going to a rehab tomorrow. Provided a supportive presence and emapthic listening. * Progress Notes - Kalyani Acuna - 04/07/2024 1:29 PM EDT SW was contacted by the liaison from [facility]. Liaison stated the pt's insurance is requesting a P2P. SW informed the primary team and provided all necessary information. * Progress Notes - Marely Leonard - 04/07/2024 10:48 AM EDT Occupational Therapy Treatment Patient Name: Sae Alexander Today's Date: 04/07/2024 OT Discharge Recommendations: Acute [...] Mobility Bed Mobility Exam: Scooting/Bridging Level of [place]: Stand-by assist (to EOB) Physical/Nonphysical Assist: Verbal Cues, Nonverbal cues (demo/gestures), Minimal cues Assistive Device: Bed rails Bed Mobility Exam: Supine to Sit Level of [place]: Stand-by assist Physical/Nonphysical Assist: Verbal Cues, Nonverbal cues (demo/gestures), HOB elevated Assistive Device: Bed rails Transfers Transfer Exam: Sit to stand Level of [place]: Contact guard Physical/Nonphysical Assist: Verbal Cues, Nonverbal cues (demo/gestures), Minimal cues Assistive Device: Walker, rolling Transfer Exam: Stand to Sit Level of [place]: Contact guard Physical/Nonphysical Assist: Minimal cues, Verbal [...] 1:33 PM. * Care Plan - Ana Jaimes RN - 04/07/2024 6:33 AM EDT Problem: [...] - 04/06/24 0659 04/06/24 0700 - 04/06/24 1859 04/06/24 1900 - 04/07/24 0659 04/07/24 0700 - 04/07/24 1859 04/07/24 1900 - 04/07/242052 Requested LDAs do not have [...] PM EDT SW contacted the liaison for [facility] to follow up on the pt's [...] Accessories Cavilon skin prep 3342 Powder 7906 Rocheport adhesive remover 4560 Lubricating deodorant 31708 Rocheport ostomy ring 0652 Manjula Angelo RN 04/06/2024 11:58 AM * [...] Airway None Output by Drain (mL) 04/04/24 0700 - 04/04/24 1859 04/04/24 1900 - 04/05/24 0659 04/05/24 0700 - 04/05/24 1859 04/05/24 1900 [...] SW was contacted by the liaison from [facility] who made a bed offer. Pt was in agreement to go to that facility once approved. Liaison stated intentions to start the pt's pre-cert. * Progress Notes - aKity Lamar - 04/05/2024 11:38 AM EDT Physical Therapy Treatment Patient Name: Sae Alexander Today's Date: 04/05/2024 PT Discharge Recommendations: Acute rehab Equipment Recommended: Defer to facility Subjective It feels good to get out of that bed Participants in Care Family/Caregiver Present: No Yarn Cleaner: Not Applicable Presentation Oxygen Therapy: None (Room [...] Mobility Bed Mobility Exam: Scooting/Bridging Level of [place]: Stand-by assist (scooting to eob.) Physical/Nonphysical Assist: Verbal Cues, Nonverbal cues (demo/gestures) Bed Mobility Exam: Supine to Sit Level of [place]: Minimum assist (75% patient's effort) Physical/Nonphysical Assist: Verbal Cues, Nonverbal cues (demo/gestures), HOB elevated Transfers Transfer Interventions: Sit to/from stand transfers performed from various surface heights and compliances to assist with transference of skills across environmental differences. Transfer Exam: Sit to stand Level of [place]: Contact guard (x4 reps throughout session) Physical/Nonphysical Assist: Verbal Cues, Nonverbal cues (demo/gestures) Assistive Device: Walker, rolling Transfer Exam: Stand to Sit Level of [place]: Contact guard Physical/Nonphysical Assist: Minimal cues, Verbal [...] shaver? Participants in Care Family/Caregiver Present: No Yarn Cleaner: Not Applicable Presentation Oxygen Therapy: None (Room [...] Mobility Bed Mobility Exam: Scooting/Bridging Level of [place]: Stand-by assist (scooting to eob.) Physical/Nonphysical Assist: Verbal Cues, Nonverbal cues (demo/gestures) Bed Mobility Exam: Supine to Sit Level of [place]: Minimum assist (75% patient's effort) Physical/Nonphysical Assist: Verbal Cues, Nonverbal cues (demo/gestures), HOB elevated Assistive Device: Bed rails Transfers Transfer Exam: Sit to stand Level of [place]: Contact guard Physical/Nonphysical Assist: Verbal Cues Assistive Device: Walker, rolling Transfer Exam: Stand to Sit Level of [place]: Contact guard Physical/Nonphysical Assist: Minimal cues, Verbal [...] Where Assessed: Edge of bed Standardized Assessments [facility] 6-Click Daily Activities Help from Other: Don/Doff Regular Lower Body Clothings: Little Help From Other: Bathing: Little Help From Other: Toileting: Total Help From Other: Don/Doff Upper Body Clothings: Little Help From Other: Grooming: Little Help From Other: Eating Meals: None [facility] 6 Click - Daily Activities Score: 17 [...] Airway None Output by Drain (mL) 04/03/24 07 - 04/03/24 1859 04/03/24 190 - 04/04/24 0659 04/04/24 0700 - 04/04/24 [...] patient -Coreg 12.5 BID -HLIV -Abx: Zosyn (), Vanc (03/26), micafungin (03/27-04/04) [...] IV Insert peripheral IV Performed by: Thalia Mejia, RN Authorized by: Jeremy Cazares MD Hand [...] Note Sae Alexander 73 y.o. male CSN: [id number] Admission: 03/23/2024 4:04 AM Primary Problem: Rectal cancer (CMS/HCC) Anticipated Discharge Date: Unknown Has Discharge Plans Changed? No Medicare Second Notice: Housing Circumstances: Not Applicable Housing Circumstances Action Taken: Other N/A Additional Comments POC per primary team pt is medically ready for referral. SW sent referrals within 20 miles of the pt's listed address via [employer]. SW will continue to monitor and assist [...] Note Sae Alexander 73 y.o. male CSN: [id number] Room/Bed 129/129A Nutrition evaluation type: follow-up Reason [...] Procedure Laterality Date CHOLECYSTECTOMY N/A Cholecystectomy from [facility] * Per notes: LAR Social history: Social History Tobacco Use Smoking status: Former Tobacco comments: Former smoker, [phone] 1.5 ppd Substance Use Topics Alcohol use: Never Drug use: Never Additional comments: 04/04: Visit pending. Vitals and Basic Assessment: BP: (!) 175/68 Temp: 36.6 ??C (97.9 ??F) Oxygen Therapy: None (Room air) O2 Delivery Method: Nasal cannula [place] Coma Scale Score: 15 South Scale Score: [...] - 04/03/2024 11:00 AM EDT 04/03/24 Sae Mai Alexander HPI 73M with prior LAR for [...] Edited by: Dc Rizzo MD at 04/03/2024 1616 Relevant review of systems was obtained as [...] edema -Coreg 12.5 BID -HLIV -Abx: Zosyn (03/23-), [...] agreeable to OT session Visitors Present None Yarn Cleaner (if applicable) PRESENTATION Oxygen None (Room air) [...] admission Level of Mobility Ambulatory- community Mobility [place] Independent gait without device History of Falls [...] Sensation Intact INTERVENTIONS BED MOBILITY Level of [place] Physical/Non- physical Assist Adaptive Equipment Utilized Rolling/ [...] head, Stooped posture, Rounded shoulders Level of [place] Balance Support Interventions Static Sit Standby assist [...] midline, Reaching forobjects FUNCTIONAL ENDURANCE Level of [place] Distance Adaptive Equipment Utilized Functional Mobility Minimum [...] needed areas of treatment space Level of [place] Adaptive Equipment Utilized Interventions Grooming Setup, Minimum [...] to participate in LB Dressing STANDARDIZED ASSESSMENTS [facility] 6-Click Daily Activities Help from Other: Don/Doff Regular Lower Body Clothings: A lot Help From Other: Bathing: A lot Help From Other: Toileting: A lot Help From Other: Don/Doff Upper Body Clothings: Little Help From Other: Grooming: Little Help From Other: Eating Meals: Little [facility] 6 Click - Daily Activities Score: 15 ASSESSMENT [...] admitted 03/23/2024 for work-up of Rectal cancer ([facility]). Problem List Active Hospital Problems Diagnosis Date [...] evaluation. Participants in Care Family/Caregiver Present: No Yarn Cleaner: Not Applicable Presentation Oxygen Therapy: None (Room [...] admission Level of Mobility: Ambulatory- community Mobility [place]: Independent gait without device History of Falls: [...] bed before pushing up to sitting. During rya-ot-vegaj transfer from the EOB pt required cues [...] Mobility Bed Mobility Exam: Rolling/Turning Level of [place]: Moderate assist (50% patient effort) Physical/Nonphysical Assist: Set-up required, Verbal Cues, Minimal cues, Nonverbal cues (demo/gestures) Bed Mobility Exam: Scooting/Bridging Level of [place]: Minimum assist (75% patient's effort) (forward at EOB) Physical/Nonphysical Assist: Verbal Cues, Nonverbal cues (demo/gestures), Minimal cues Assistive Device: Bed rails Bed Mobility Exam: Supine to Sit Level of [place]: Maximum assist (25% patient's effort) Physical/Nonphysical Assist: HOB elevated, Additional assist utilized for safety, Nonverbal cues (demo/gestures), Verbal Cues, Moderate cues Assistive Device: Bed rails Transfers Transfer Exam: Sit to stand Level of [place]: Minimum assist (75% patient's effort) (x1 rep from EOB; x1 rep from chair) Physical/Nonphysical Assist: Verbal Cues, Nonverbal cues (demo/gestures), Minimal cues, 1 person + 1 person to manage equipment Assistive Device: Walker, rolling Transfer Exam: Stand to Sit Level of [place]: Contact guard Physical/Nonphysical Assist: Minimal cues, Nonverbal cues (demo/gestures), Verbal Cues, 1 person + 1 person to manage equipment Assistive Device: Walker, rolling Transfer Exam: Bed to Chair/Chair to Bed Level of [place]: Minimum assist (75% patient's effort) Physical/Nonphysical Assist: [...] of Bed 2 Sit to Stand 3 Chair/Ujf-pn-Joeyl Transfer 3 Toilet Transfer 10 Car Transfer [...] a helper. 5 Set-up or Clean-up Assistance [place] sets up or cleans up; patient completes activity. [place] assists only prior to or following the activity. 4 Supervision or touching assistance [place] provides verbal cues and/or touching/steadying and/or contact guard assistance as patient completes activity. Assistance may be provided throughout the activity or intermittently. 3 Partial/Moderate Assistance [place] does LESS THAN HALF the effort. [place] lifts, holds or supports trunk or limbs, but provides less than half the effort. 2 Substantial/Maximal Assistance [place] does MORE THAN HALF the effort. [place] lifts or holds trunkor limbs and provides more than half the effort. 1 Dependent [place] does ALL of the effort. Patient does [...] medical condition or safety concerns Standardized Assessments [facility] 6-Clicks Mobility Assessment Difficulty patient has turning [...] 3-5 steps with a railing?: A lot [facility] 6-Clicks Mobility Assessment Total : 15 Assessment [...] Intake/Output Summary (Last 24 hours) at 04/02/2024 170 Last data filed at 04/02/2024 1500 Gross per 24 hour Intake 480 ml Output 3300 ml Net -2820 ml Lines/Drains/Tubes: Patient Lines/Drains/Airways Status Active Airway None Output by Drain (mL) 03/31/24 0700 - 03/31/24 18503/31/24 1900 - 04/01/24 0659 04/01/24 0700 - 04/01/24 18504/01/24 1900 - 04/02/24 0659 04/02/24 0700 - 04/02/24 170 Requested LDAs do not [...] from the original note were not included. [facility] Department of Surgery Division of Colon & [...] 6.25 mg BID - HLIV -Abx: Zosyn (03/23-), Vanc (03/26 - ), [...] piece;Flat Barrier/Pouch;Flat Ring;Changed 04/01/24 1000 Site Assessment Raised;[place];Edema 04/01/24 1000 Peristomal Assessment Intact 04/01/24 1000 Treatment Site care 04/01/24 1000 Output (mL) 20 mL 04/01/24 0300 Gastric Output Appearance Watery 04/01/24 1000 Gastric Output Color Brown 04/01/24 1000 Manjula Angelo RN 04/01/2024 10:16 AM * Progress Notes - Mnajula Angelo RN - 03/31/2024 4:01 PM EDT [...] 2 piece;Flat Barrier/Pouch 03/31/24 1600 Site Assessment Edema;Raised;[place] 03/31/24 1600 Manjula Angelo RN 03/31/2024 4:01 PM * Progress Notes - Isela Jane RN - 03/31/2024 12:46 PM EDT Case Management Adult Progress Note Sae Alexander 73 y.o. male CSN: [id number] Admission: 03/23/2024 4:04 AM Primary Problem: Rectal cancer (CMS/HCC) Anticipated Discharge Date: unknown Has Discharge Plans Changed? No Medicare Second Notice: Housing Circumstances: Not Applicable Housing Circumstances Action Taken: Other Additional Comments Spoke to this am, pt not medically ready for [...] MD Consult ordered by: Jeremy Cazares MD [facility] Urology Consult Note 03/31/24 Service Requesting Consultation: [...] Procedure Laterality Date CHOLECYSTECTOMY N/A Cholecystectomy from [facility] Family History: Family History Problem Relation Name Age of Onset Lung cancer Father FH: lung cancer Social History: Social History Tobacco Use Smoking status: Former Tobacco comments: Former smoker, [id number] 1.5 ppd Substance Use Topics Alcohol use: [...] Hospital Problem List: Principal Problem: Rectal cancer ([facility]/HCC) Assessment: Sae Alexander is a 73 y.o. [...] tube placement in the future as a long-term management option for bladder decompression. Plan: - Continue Rodriguez catheter for now - Can consider SPT placement in the future as long-term means of decompressing bladder - Urology available [...] documented. * Progress Notes - Lolis Caruso - 03/31/2024 7:56 AM EDT Images from the original note were not included. [facility] Department of Surgery Division of Colon & Rectal Surgery Surgery Progress Note 03/31/24 Sae Sergei Alexander Full Code Subjective Subjective: HPI 73M [...] saw and evaluated the patient with the medical/DECORATOR CONSULTANT/PA student. I discussed the case with the medical/DECORATOR CONSULTANT/PA student and agree with the findings and [...] well post-operatively. Diet: CLD Pain Management: IV FLOOR SPECIALIST VTE PPx: heparin (porcine) Plan discussed with RN Home medications to restart: None Please call with any questions or concerns. Lalit Newton MD General Surgery, PGY-1 Pager: [phone] * Anesthesia PACU Signout - Adrián Alfaro [...] Cazares MD - 03/30/2024 2:17 PM EDT [facility] Colon and Rectal Surgery Operative Note JS Sage GUTIERREZ FACS FASCRS Patient: Sae Alexander : 1950 Date of Procedure: 03/30/24 Admit Date: 03/23/2024 Facility Location: [facility] Pre-Operative Diagnosis: Rectal cancer. Recurrent. Large-bowel obstruction. Rectourethral fistula. Post-Operative Diagnosis: Same. Procedure: Flexible sigmoidoscopy with biopsy. Colostomy creation. Attending Surgeon: Lorena Cazares MD FACS FASCRS (present throughout entire procedure). Resident Surgeon: Kirk Gordon MD. Surgery Team: * Jeremy Cazares - Primary Anesthesia Team: Anesthesiologist: Chauncey Meza DO [facility] APPRAISER: Kevin Love CRNA Anesthesia Type: Choice ASA [...] 03/30/2024 2:17 PM EDT Date: 03/30/24 Location: [facility] Name: Sae Alexander, : 1950, Diagnoses: Pre-op Diagnosis Rectal cancer (CMS/HCC) Post-op Diagnosis Rectal cancer (CMS/HCC) Procedure(s): Flexible sigmoidoscopy with biopsy Diverting colostomy creation Attending Surgeon(s): * Jeremy Cazares - Primary Criminal Court Judge(s): * Kirk Gordon MD - Resident - Assisting * Lalit Newton MD - Resident - Assisting Anesthesia: Choice ASA: ASA status not filed in the log. Blood Administration: Blood Product Administration History Date Volume Status Transfuse RBC 03/29/2024 Transfusing Transfuse RBC 03/27/2024 264.58 mL Completed 03/27/241816 Estimated Blood Loss: 20 mL Drains: Colostomy RUQ (Active) Urethral Catheter (Active) Site Assessment Clean;Skin intact 03/30/24 0800 CAUTI: Collection Container Standard drainage bag;System closed;Collection [...] with the findings and plan as documented. [facility] Colon and Rectal Surgery Brief Operative Note [...] Note Sae Alexander 73 y.o. male CSN: [id number] Room/Bed OR/- Nutrition evaluation type: assessment Reason for evaluation: [facility] Hospital course: 73 y o M with [...] Procedure Laterality Date CHOLECYSTECTOMY N/A Cholecystectomy from [facility] * Per notes: LAR Social history: Social History Tobacco Use Smoking status: Former Tobacco comments: Former smoker, 6554-5274 1.5 ppd Substance Use Topics Alcohol use: Never Drug use: Never Additional comments: 03/30: Pt out of room Vitals and Basic Assessment: BP: (!) 182/96 (Notified Dr. Meza. He is ok with current BP. No additional interventions needed.) Temp: 36.8 ??C (98.3 ??F) Oxygen Therapy: None (Room air) Noé Coma Scale Score: 15 South Scale [...] from last 7 days Lab Units 03/30/24 01203/28/24 0618 03/27/24 0320 SODIUM mmol/L 137 137 [...] PM EDT Pastoral Care Note Referral From: Mold [employer]er Initiated Pastoral Care Provided For: Patient Patient Profile: Consult Reasons: Pre-surgery Spiritual Assessment: Support Systems/ Spiritual Resources: Unknown Spiritual Needs: Emotional support Interventions: Interventions Provided: Introduced Patient/Family to [employer] Services, Emotional support Pastoral Care Outcomes: Patient Outcomes: Is knowledgeable about [employer] Director Services * Significant Event - Lalit Newton [...] Lalit Newton MD General Surgery, PGY-1 Pager: [phone] * Progress Notes - Lolis Caruso - 03/29/2024 2:19 PM EDT Images from the original note were not included. [facility] Department of Surgery Division of Colon & Rectal Surgery Surgery Progress Note 03/29/24 Sae Mai Alex Full Code Subjective Subjective: HPI 73M with [...] by Drain (mL) 03/27/24 0700 - 03/27/24 1859 03/27/24 1900 - 03/28/24 0659 03/28/24 0700 - [...] saw and evaluated the patient with the medical/DECORATOR CONSULTANT/PA student. I discussed the case with the medical/DECORATOR CONSULTANT/PA student and agree with the findings and plan as documented. I personally performed the Examand Medical Decision Making. Mr. Alexander is a 73-year-old male with recurrent rectal mass consistent with rectal cancer. Locallyadvanced. PLAN FOLLOWS: Tentatively plan for colostomy and biopsy on March 30, 2024. * Progress Notes - Shilpi Valero, PharmD - 03/29/2024 10:54 AM EDT Images from [...] Value Units Date/Time Blood Culture (Aerobic/Anaerobet Set) [[id number]] (Abnormal) Collected: 03/26/24 1313 Order Status: Completed Specimen: Blood from AC, Left Updated: 03/29/24 0120 Culture Clavispora lusitaniae (formerly Coco lusitaniae) Comment: Isolated from aerobic culture bottle only. This result was determined by MALDI tof mass spectrometry using the [place] database and is for research use only. [...] preliminary verified report. Blood Culture (Aerobic/Anaerobet Set) [[id number]] Collected: 03/26/24 1313 Order Status: Completed Specimen: Blood from AC, Right Updated: 03/28/24 1401 Culture No growth at day 2 Methicillin Resistant Staphylococcus aureus (MRSA) by PCR [[id number]] (Abnormal) Collected: 03/28/24 1003 Order Status: Completed [...] clinical laboratory testing. Blood Culture Fungal ID [[id number]] (Abnormal) Collected: 03/26/24 1313 Order Status: Completed Specimen: Blood from , Left Updated: 03/27/24 1946 Clavispora lusitaniae Result [...] all analytes tested. Clostridiodes (Clostridium) difficile PCR [[id number]] (Normal) Collected: 03/27/24 1140 Order Status: Completed [...] ml Pharmacokinetic Evaluation Current Regimen 1000mg IV Q30qrmbo Date/Time of Last Dose 03/28 @ 2331 [...] from the original note were not included. [facility] Department of Surgery Division of Colon & [...] Airway None Output by Drain (mL) 03/26/24 0700 - 03/26/24 1859 03/26/24 1900 - 03/27/24 0659 03/27/24 07 - 03/27/24 1859 03/27/24 1900 - 03/28/24 0659 03/28/24 0700 - 03/28/24 1235 Requested LDAs do not [...] Note Sae Alexander 73 y.o. male CSN: [id number] Admission: 03/23/2024 4:04 AM Primary Problem: Rectal [...] from the original note were not included. [facility] Department of Surgery Division of Colorectal Surgery Surgery Progress Note 03/27/24 Sae Alexander Subjective Subjective: HPI 73M with prior LAR [...] by Drain (mL) 03/25/24 07 - 03/25/24 18503/25/24 1900 - 03/26/24 0659 03/26/24 07 - 03/26/24 [...] Edited by: Poly Marti MD at 03/27/2024 6248 Dispo: Continue Current Level of Care Poly Marti MD Cosigned by Jeremy Cazares MD at 03/28/2024 12:55 PM EDT Associated attestation - Jeremy Cazares MD - 03/28/2024 12:55 PM EDT I saw and evaluated the patient with the medical/DECORATOR CONSULTANT/PA student. I discussed the case with the medical/DECORATOR CONSULTANT/PA student and agree with the findings and plan as documented. I personally performed the Examand Medical Decision Making. Mr. Alexander is a 73-year-old male presenting with large bowel obstruction secondary to locally advanced recurrent rectal cancer. Needs fecal diversion. PLAN FOLLOWS: Scheduled for colostomy creation. Time to be determined. * Progress Notes - Lina Simpson PharmD - 03/26/2024 4:41 PM EDT Sae [...] continue to monitor with team. Lina Simpson, Nathaniel, [facility] Clinical Pharmacist - Surgery Services * Progress Notes - Lolis Caruso - 03/26/2024 11:17 AM EDT Images from the original note were not included. [facility] Department of Surgery Division of Colon & [...] by Drain (mL) 03/24/24 07 - 03/24/24 1859 03/24/24 190 - 03/25/24 0659 03/25/24 07 - 03/25/24 1859 03/25/24 190 - 03/26/24 0659 03/26/24 0700 - 03/26/24 1117 Requested LDAs do not [...] days Lab Units 03/26/24 0353 03/25/24 0637 03/23/24448 HEMOGLOBIN g/dL 8.7* 9.2* 8.4* HEMATOCRIT % [...] saw and evaluated the patient with the medical/DECORATOR CONSULTANT/PA student. I discussed the case with the medical/DECORATOR CONSULTANT/PA student and agree with the findings and [...] Progressing * Progress Notes - Lolis Caruso - 03/25/2024 2:13 PM EDT Images from the original note were not included. [facility] Department of Surgery Division of Colon & [...] by Drain (mL) 03/23/24 07 - 03/23/24 18503/23/241899 - 03/24/24 0659 03/24/24699 - 03/24/24 18503/24/24 1900 - 03/25/24 0659 03/25/24 07 - [...] (first dose 03/23, last dose TBD ) Edited by: Lolis Caruso at 03/25/2024 1413 - Discharge teaching and planning Dispo: Continue Current Level of Care Lolis Caruso. MS3 Cosigned by Jeremy Cazares MD at 03/28/2024 12:54 PM EDT Associated attestation - Jeremy Cazares MD - 03/28/2024 12:54 PM EDT I saw and evaluated the patient with the medical/DECORATOR CONSULTANT/PA student. I discussed the case with the medical/DECORATOR CONSULTANT/PA student and agree with the findings and [...] Note Sae Alexander 73 y.o. male CSN: [id number] Admission: 03/23/2024 4:04 AM Primary Problem: Rectal [...] Isela Jane RN * Progress Notes - Dc Rizzo MD - 03/24/2024 6:30 AM EDT 03/24/24 Sae Alexander HPI 73M presenting 03/23 with suprapubic [...] Airway None Output by Drain (mL) 03/22/24 07 - 03/22/24 18503/22/24 190 - 03/23/24 0659 03/23/24 07 - 03/23/24 18503/23/24 190 - 03/24/24 0659 03/24/24 07 - 03/24/24 18503/24/241899 - 03/24/241943 Requested LDAs do not have [...] last 7 days Lab Units 03/23/24 0449 HEMOGLOBIN g/dL 8.4* HEMATOCRIT % 27.1* INR [...] Note Sae Alexander 73 y.o. male CSN: [id number] Admission: 03/23/2024 4:04 AM Primary Problem: Rectal cancer (CMS/HCC) French Drawer reviewed chart and spoke with patient at to complete this Initial Case Management Assessment. PCP: Pcp, No Emergency Contact: Extended Emergency Contact Information Primary Emergency Contact: Idalia Ulloa Mobile Relation: Sister Preferred language: Polish Yarn Cleaner needed? No Secondary Emergency Contact: Tabatha Alexander Mobile Relation: Daughter Preferred language: Polish Yarn Cleaner needed? No Insurance: Primary Visit Coverage Payer Plan Sponsor Code Group Number Group Name HUMANA MEDICARE HUMANA MEDICARE [id number] Primary Visit Coverage Subscriber Subscriber ID Subscriber Name Subscriber SSN Subscriber Address [id number] SAE ALEXANDER [id number] [place] [address] Patient information: Primary Caregiver: Self Accompanied by/Relationship: self Support System: Immediate family Daily Living Activities: Functional Status: Independent Living Arrangements: Alone Type of Residence: Single Level [address] [place] [address] Current DME: Equipment Currently Used at Home: [...] Dialysis Services: none Living Will/Advance Directive/Power of Manager Semiconductor /Guardian: Pt does not have a living will or POA. Additional Comments: Pt admitted for rectal cancer. Met with pt at bs, verified information. Pt does not have a PCP. Pt lives alone, he states his son will be home from the [place] next week and will be able to provide assistance at home if needed. Pt has [employer] Medicare as his insurance. Transportation home will be provided by his son. Pt has listed his sister, Idalia Ulloa, as his emergency contact, phone # [phone], and his [id number], Tabatha Alexander, . Pt obtains medications from [employer]. Pt currently has a bsc that he does not use, he is not receiving services. Will continue to follow and assist with d/c needs as they arise. Isela Jane RN * H&P - Sudha Villagran DO - 03/23/2024 6:03 AM EDTAssociated Order(s): Consult to Colorectal Surgery - Surg Green Images from the original note were not included. [facility] Medicine Department of Surgery Division of Colorectal Surgery [...] Dr. Cazares 06/2019 who presented [facility] on 03[facility]23[facility]24 with urinary retention. [...] Procedure Laterality Date CHOLECYSTECTOMY N/A Cholecystectomy from [facility] Family Medical History: Family History Problem [...] lactated Ringer's infusion 100 mL/hr Intravenous Continuous Villagran Sudha M, DO piperacillin-tazobactam (Zosyn) 4.5 g in sodium chloride 0.9% 100 mL IVPB (Mini- Bag Plus) 4.5 g Intravenous q6h Villagran, Sudha M, DO sodium chloride 0.9 % flush 10 mL 10 mL Intravenous q12h Villagran, Sudha M, DO And sodium chloride 0.9 % flush 10 mL 10 mL Intravenous PRN Villagran, Sudha M, DO No current outpatient medications on file. [...] with Dr. Cazares 06/[address] [facility] with perforated rectal cancer in the setting [...] Complaint Patient presents with Abscess Chief Complaint: Abscess Sae Alexander is a 73 y.o. male [...] Procedure Laterality Date CHOLECYSTECTOMY N/A Cholecystectomy from [facility] Family History Problem Relation Name Age [...] Impressions as of 03/23/24 0552 Rectal cancer ([facility]) - Medical Decision Making The following orders [...] Lim MD Emergency Medicine - PGY2 EMR Dragon/Psychological Science Professor disclaimer: Much of this encounter note is an electronic substance abuse specialist of spoken language to printed text. Electronic substance abuse specialist of spoken language may permit erroneous, or [...] Routine 03/30/2024 2:19 PM EDT Rectal cancer ([facility]/HCC) CREATION, COLOSTOMY, LAPAROSCOPIC 03/30/2024 1:37 PM EDT [...] * (ABNORMAL) Procalcitonin (04/04/2024 4:22 PM EDT) Procalcitonin, Plasma 0.30(H) <0.09 ng/mL 04/04/2024 5:14 PM EDT [facility] Blood Venous blood specimen / Unknown Venipuncture / Unknown 04/04/2024 4:22 PM EDT 04/04/2024 4:35 PM EDT [facility] - 04/04/2024 5:14 PM EDT [...] predict 28 day mortality risk. Please consult [email or web address] for more information. Test performed at [facility]. us Jeremy Cazares MD LAB BLOOD ORDERABLES Final Res ult Performing Organization Address [facility] Co de Phone Number [facility]ALTHCARE [facility] [address] [place] [address] * Phosphorus (04/04/2024 4:22 PM EDT) Phosphorus, Plasma 2.6 2.5 - 4.5 mg/dL 04/04/2024 5:14 PM EDT [facility] Blood Venous blood specimen / Unknown Venipuncture / Unknown 04/04/2024 4:22 PM EDT 04/04/2024 4:35 PM EDT us Jeremy Cazares MD LAB BLOOD ORDERABLES Final Res ult Performing Organization Address [facility] de Phone Number [facility] [address] [place] [address] * (ABNORMAL) Magnesium (04/04/2024 4:22 PM EDT) Magnesium, Plasma 1.6(L) 1.9 - 2.4 mg/dL 04/04/2024 5:14 PM EDT [facility] Blood Venous blood specimen / Unknown Venipuncture / Unknown 04/04/2024 4:22 PM EDT 04/04/2024 4:35 PM EDT us Jeremy Cazares MD LAB BLOOD ORDERABLES Final Res ult Performing Organization Address [facility] Co de Phone Number [facility] [address] [place] [address] * (ABNORMAL) Basic metabolic panel (04/04/2024 4:22 PM EDT) Glucose, Plasma 114(H) 74 - 99 mg/dL 04/04/2024 5:14 PM EDT [facility] BUN, Plasma 9 8 - 23 mg/dL 04/04/2024 5:14 PM EDT [facility] Creatinine, Plasma 0.65(L) 0.80 - 1.30 mg/dL 04/04/2024 5:14 PM EDT [facility] BUN/Creatinine Ratio 14 04/04/2024 5:14 PM EDT [facility] Sodium, Plasma 136 136 - 145 mmol/L 04/04/2024 5:14 PM EDT [facility] Potassium, Plasma 3.8 3.7 - 4.8 mmol/L 04/04/2024 5:14 PM EDT [facility] Chloride, Plasma 104 97 - 107 mmol/L 04/04/2024 5:14 PM EDT [facility] CO2, Plasma 24 22 - 29 mmol/L 04/04/2024 5:14 PM EDT [facility] Anion Gap 8 6 - 16 mmol/L 04/04/2024 5:14 PM EDT [facility] Total Calcium, Plasma 8.6(L) 8.9 - 10.2 mg/dL 04/04/2024 5:14 PM EDT [facility] eGFRcr 100.7 mL/min/1.7 3m*2 04/04/2024 5:14 PM EDT [facility] Comment:Reported eGFRcr in m L/min/1.73m2 is based the CKD-EPI 2020 equation that does not use a race coefficient. Blood Venous blood specimen / Unknown Venipuncture / Unknown 04/04/2024 4:22 PM EDT 04/04/2024 4:35 PM EDT us Jeremy Cazares MD LAB BLOOD ORDERABLES Final Res ult [facility] [address] [place] [address] * (ABNORMAL) CBC W/O Differential (04/04/2024 4:22 PM EDT) WBC Count 9.75 3.70 - 10.30 10*3/uL LAB HEMATOLOGY METHOD 04/04/2024 5:05 PM EDT [facility] RBC Count 5.06 4.60 - 6.10 10*6/uL LAB HEMATOLOGY METHOD 04/04/2024 5:05 PM EDT [facility] HGB 12.0(L) 13.7 - 17.5 g/dL LAB HEMATOLOGY METHOD 04/04/2024 5:05 PM EDT [facility] HCT 38.5(L) 40.0 - 51.0 % LAB HEMATOLOGY METHOD 04/04/2024 5:05 PM EDT [facility] Platelet Count 286 155 - 369 10*3/uL LAB HEMATOLOGY METHOD 04/04/2024 5:05 PM EDT [facility] MCV 76(L) 79 - 98 fL LAB HEMATOLOGY METHOD 04/04/2024 5:05 PM EDT [facility] MCH 23.7(L) 26.0 - 32.0 pg LAB HEMATOLOGY METHOD 04/04/2024 5:05 PM EDT [facility] MCHC 31.2 30.7 - 35.5 g/dL LAB HEMATOLOGY METHOD 04/04/2024 5:05 PM EDT [facility] RDW 20.9(H) 11.5 - 14.5 % LAB HEMATOLOGY METHOD 04/04/2024 5:05 PM EDT [facility] MPV 8.4(L) 8.8 - 12.5 fL LAB HEMATOLOGY METHOD 04/04/2024 5:05 PM EDT [facility] nRBC 0.0 <=0.0 per 100 WBCs LAB HEMATOLOGY METHOD 04/04/2024 5:05 PM EDT [facility] Blood Venous blood specimen / Unknown Venipuncture / Unknown 04/04/2024 4:22 PM EDT 04/04/2024 4:47 PM EDT Jeremy Cazares MD LAB BLOOD ORDERABLES Final Res ult Performing Organization Address City/State/[facility] Co de Phone Number [facility]ALTH[facility]ARE [facility] [address] [place] [phone] * PERIPHERAL IV (SMARTFORM LINK) (04/04/2024 4:13 [...] ??Transparent semipermeable dressing Education provided to: ??Patient us Jeremy Cazares MD IV THERAPY ORDERABLES Final Re sult * (ABNORMAL) Basic Metabolic Panel, Plasma (04/02/2024 1:27 PM EDT) Pathologist [facility] Glucose, Plasma 98 74 - 99 mg/dL 04/02/2024 2:50 PM EDT [facility] BUN, Plasma 10 8 - 23 mg/dL 04/02/2024 2:50 PM EDT [facility] Creatinine, Plasma 0.61(L) 0.80 - 1.30 mg/dL 04/02/2024 2:50 PM EDT [facility] BUN/Creatinine Ratio 16 04/02/2024 2:50 PM EDT [facility] Sodium, Plasma 136 136 - 145 mmol/L 04/02/2024 2:50 PM EDT [facility] Potassium, Plasma 3.7 3.7 - 4.8 mmol/L 04/02/2024 2:50 PM EDT [facility] Chloride, Plasma 101 97 - 107 mmol/L 04/02/2024 2:50 PM EDT [facility] CO2, Plasma 20(L) 22 - 29 mmol/L 04/02/2024 2:50 PM EDT [facility] Anion Gap 15 6 - 16 mmol/L 04/02/2024 2:50 PM EDT [facility] Total Calcium, Plasma 8.5(L) 8.9 - 10.2 mg/dL 04/02/2024 2:50 PM EDT [facility] eGFRcr 102.7 mL/min/1.7 3m*2 04/02/2024 2:50 PM EDT [facility] Comment:Reported eGFRcr in m L/min/1.73m2 is based the CKD-EPI 2020 equation that does not use a race coefficient. Blood Venous blood specimen / Unknown Venipuncture / Unknown 04/02/2024 1:27 PM EDT 04/02/2024 1:40 PM EDT us Jeremy Cazares MD LAB BLOOD ORDERABLES Final Res ult Performing Organization Address [facility] de Phone Number [facility] [address] [place] [address] * (ABNORMAL) Phosphorus, Plasma (04/02/2024 1:27 PM EDT) Phosphorus, Plasma 2.3(L) 2.5 - 4.5 mg/dL 04/02/2024 2:50 PM EDT [facility] Blood Venous blood specimen / Unknown Venipuncture / Unknown 04/02/2024 1:27 PM EDT 04/02/2024 1:40 PM EDT us Jeremy Cazares MD LAB BLOOD ORDERABLES Final Res ult Performing Organization Address [facility] de Phone Number [facility] [address] [place] [address] * (ABNORMAL) Magnesium, Plasma (04/02/2024 1:27 PM EDT) Magnesium, Plasma 1.7(L) 1.9 - 2.4 mg/dL 04/02/2024 2:50 PM EDT [facility] Blood Venous blood specimen / Unknown Venipuncture / Unknown 04/02/2024 1:27 PM EDT 04/02/2024 1:40 PM EDT us Jeremy Cazares MD LAB BLOOD ORDERABLES Final Res ult Performing Organization Address [facility] de Phone Number [facility] [address] [place] [address] * (ABNORMAL) CBC W/O Differential (04/02/2024 1:27 PM EDT) WBC Count 17.31(H) 3.70 - 10.30 10*3/uL LAB HEMATOLOGY METHOD 04/02/2024 2:26 PM EDT [facility] RBC Count 5.79 4.60 - 6.10 10*6/uL LAB HEMATOLOGY METHOD 04/02/2024 2:26 PM EDT [facility] HGB 13.7 13.7 - 17.5 g/dL LAB HEMATOLOGY METHOD 04/02/2024 2:26 PM EDT [facility] HCT 43.5 40.0 - 51.0 % LAB HEMATOLOGY METHOD 04/02/2024 2:26 PM EDT [facility] Platelet Count 454(H) 155 - 369 10*3/uL LAB HEMATOLOGY METHOD 04/02/2024 2:26 PM EDT [facility] MCV 75(L) 79 - 98 fL LAB HEMATOLOGY METHOD 04/02/2024 2:26 PM EDT [facility] MCH 23.7(L) 26.0 - 32.0 pg LAB HEMATOLOGY METHOD 04/02/2024 2:26 PM EDT [facility] MCHC 31.5 30.7 - 35.5 g/dL LAB HEMATOLOGY METHOD 04/02/2024 2:26 PM EDT [facility] RDW 20.5(H) 11.5 - 14.5 % LAB HEMATOLOGY METHOD 04/02/2024 2:26 PM EDT [facility] MPV 8.4(L) 8.8 - 12.5 fL LAB HEMATOLOGY METHOD 04/02/2024 2:26 PM EDT [facility] nRBC 0.0 <=0.0 per 100 WBCs LAB HEMATOLOGY METHOD 04/02/2024 2:26 PM EDT [facility] Blood Venous blood specimen / Unknown Venipuncture / Unknown 04/02/2024 1:27 PM EDT 04/02/2024 1:40 PM EDT us Jeremy Cazares MD LAB BLOOD ORDERABLES Final Res ult [facility] [address] [place] [id number] * POCT glucose meter (04/01/2024 5:54 AM EDT) [facility] POCT Glucose 92 74 - 99 mg/dL 04/01/2024 5:56 AM EDT [facility] Comment:Accuracy of [...] for testing. Comment 04/01/2024 5:56 AM EDT [facility] Metal Molder ID Terri Crum 024 5:56 AM EDT [facility] Device ID [id number] 04/01/2024 5:56 AM EDT [facility] Specimen Type POC Capillary 04/01/2024 5:56 AM EDT [facility] Blood Capillary blood specimen / Unknown 04/01/2024 5:54 AM EDT 04/01/2024 5:56 AM EDT us Jeremy Cazares MD LAB POINT OF CARE TE ST DOCKED DEVICE UNSOLICITED RESULTS Final Result Performing Organization Address City/State/[facility] Co de Phone Number [facility] [address] [place] [address] * POCT glucose meter (04/01/2024 12:01 AM EDT) [facility] POCT Glucose 97 74 - 99 mg/dL 04/01/2024 12:01 AM EDT [facility] Comment:Accuracy of a [...] Comment 04/01/2024 12:01 AM EDT [facility] Metal Molder ID Terri Crum 024 12:01 AM EDT [facility] Device ID [id number] 04/01/2024 12:01 AM EDT [facility] Specimen Type POC Capillary 04/01/2024 12:01 AM EDT [facility] Blood Capillary blood specimen / Unknown 04/01/2024 12:01 AM EDT 04/01/2024 12:01 AM EDT us Jeremy Cazares MD LAB POINT OF CARE TE ST DOCKED DEVICE UNSOLICITED RESULTS Final Result Performing Organization Address [facility] Co de Phone Number [facility] [address] [place] [address] * (ABNORMAL) POCT glucose meter (03/31/2024 5:20 [...] for testing. Comment 03/31/2024 5:21 AM EDT [facility] Metal Molder ID Jermaine Khan 024 5:21 AM EDT [facility] Device ID [id number] 03/31/2024 5:21 AM EDT [facility] Specimen Type POC Capillary 03/31/2024 5:21 AM EDT [facility] Blood Capillary blood specimen / Unknown 03/31/2024 5:20 AM EDT 03/31/2024 5:21 AM EDT us Jeremy Cazares MD LAB POINT OF CARE TE ST DOCKED DEVICE UNSOLICITED RESULTS Final Result Performing Organization Address [facility] de Phone Number [facility] [address] [place] [address] * Phosphorus (03/31/2024 4:43 AM EDT) Pathologist [facility] Phosphorus, Plasma 3.1 2.5 - 4.5 mg/dL 03/31/2024 5:24 AM EDT [facility] Blood Venous blood specimen / Unknown Venipuncture / Unknown 03/31/2024 4:43 AM EDT 03/31/2024 4:54 AM EDT us Jeremy Cazares MD LAB BLOOD ORDERABLES Final Res ult Performing Organization Address City/[facility]/ZIP Co de Phone Number [facility] [address] [place] [address] * Magnesium (03/31/2024 4:43 AM EDT) Magnesium, Plasma 1.9 1.9 - 2.4 mg/dL 03/31/2024 5:24 AM EDT [facility] Blood Venous blood specimen / Unknown Venipuncture / Unknown 03/31/2024 4:43 AM EDT 03/31/2024 4:54 AM EDT Jeremy Cazares MD LAB BLOOD ORDERABLES Final Res ult [facility] [address] [place] [address] * (ABNORMAL) Comprehensive metabolic panel (03/31/2024 4:43 AM EDT) Glucose, Plasma 128(H) 74 - 99 mg/dL 03/31/2024 5:24 AM EDT [facility] BUN, Plasma 6(L) 8 - 23 mg/dL 03/31/2024 5:24 AM EDT [facility] Creatinine, Plasma 0.58(L) 0.80 - 1.30 mg/dL 03/31/2024 5:24 AM EDT [facility] BUN/Creatinine Ratio 10 03/31/2024 5:24 AM EDT [facility] Sodium, Plasma 138 136 - 145 mmol/L 03/31/2024 5:24 AM EDT [facility] Potassium, Plasma 4.5 3.7 - 4.8 mmol/L 03/31/2024 5:24 AM EDT [facility] Chloride, Plasma 106 97 - 107 mmol/L 03/31/2024 5:24 AM EDT [facility] CO2, Plasma 22 22 - 29 mmol/L 03/31/2024 5:24 AM EDT [facility] Anion Gap 10 6 - 16 mmol/L 03/31/2024 5:24 AM EDT [facility] Total Calcium, Plasma 8.4(L) 8.9 - 10.2 mg/dL 03/31/2024 5:24 AM EDT [facility] Total Protein 5.5(L) 6.3 - 7.9 g/dL 03/31/2024 5:24 AM EDT [facility] Albumin, Plasma 2.4(L) 3.5 - 5.2 g/dL 03/31/2024 5:24 AM EDT [facility] AST, Plasma 14 10 - 50 U/L 03/31/2024 5:24 AM EDT [facility] ALT, Plasma 11 10 - 50 U/L 03/31/2024 5:24 AM EDT [facility] Alkaline Phosphatase, Plasma 235(H) 40 - 115 U/L 03/31/2024 5:24 AM EDT [facility] Total Bilirubin, Plasma 0.5 0.2 - 1.1 mg/dL 03/31/2024 5:24 AM EDT [facility] eGFRcr 104.3 mL/min/1.7 3m*2 03/31/2024 5:24 AM EDT [facility] Comment:Reported eGFRcr in m L/min/1.73m2 is based the CKD-EPI 2020 equation that does not use a race coefficient. Blood Venous blood specimen / Unknown Venipuncture / Unknown 03/31/2024 4:43 AM EDT 03/31/2024 4:54 AM EDT us Jeremy Cazares MD LAB BLOOD ORDERABLES Final Res ult [facility] [address] [place] [id number] * (ABNORMAL) CBC W/O Differential (03/31/2024 4:43 AM EDT) WBC Count 11.68(H) 3.70 - 10.30 10*3/uL LAB HEMATOLOGY METHOD 03/31/2024 5:09 AM EDT [facility] RBC Count 5.10 4.60 - 6.10 10*6/uL LAB HEMATOLOGY METHOD 03/31/2024 5:09 AM EDT [facility] HGB 11.9(L) 13.7 - 17.5 g/dL LAB HEMATOLOGY METHOD 03/31/2024 5:09 AM EDT [facility] HCT 38.7(L) 40.0 - 51.0 % LAB HEMATOLOGY METHOD 03/31/2024 5:09 AM EDT [facility] Platelet Count 324 155 - 369 10*3/uL LAB HEMATOLOGY METHOD 03/31/2024 5:09 AM EDT [facility] MCV 76(L) 79 - 98 fL LAB HEMATOLOGY METHOD 03/31/2024 5:09 AM EDT [facility] MCH 23.3(L) 26.0 - 32.0 pg LAB HEMATOLOGY METHOD 03/31/2024 5:09 AM EDT [facility] MCHC 30.7 30.7 - 35.5 g/dL LAB HEMATOLOGY METHOD 03/31/2024 5:09 AM EDT [facility] RDW 18.7(H) 11.5 - 14.5 % LAB HEMATOLOGY METHOD 03/31/2024 5:09 AM EDT [facility] MPV 9.0 8.8 - 12.5 fL LAB HEMATOLOGY METHOD 03/31/2024 5:09 AM EDT [facility] nRBC 0.0 <=0.0 per 100 WBCs LAB HEMATOLOGY METHOD 03/31/2024 5:09 AM EDT [facility] Blood Venous blood specimen / Unknown Venipuncture / Unknown 03/31/2024 4:43 AM EDT 03/31/2024 4:57 AM EDT us Jeremy Cazares MD LAB BLOOD ORDERABLES Final Res ult Performing Organization Address City/State/[facility] Co de Phone Number [facility] [address] [place] [address] * (ABNORMAL) POCT glucose meter (03/30/2024 11:48 [...] Comment 03/30/2024 11:50 PM EDT [facility] Metal Molder ID Jermaine Khan 024 11:50 PM EDT [facility] Device ID [id number] 03/30/2024 11:50 PM EDT [facility] Specimen Type POC Capillary 03/30/2024 11:50 PM EDT [facility] Blood Capillary blood specimen / Unknown 03/30/2024 11:48 PM EDT 03/30/2024 11:50 PM EDT Jeremy Cazares MD LAB POINT OF CARE TE ST DOCKED DEVICE UNSOLICITED RESULTS Final Result Performing Organization Address City/[facility] Co de Phone Number [facility] [address] [place] [address] * (ABNORMAL) POCT glucose meter (03/30/2024 5:48 PM EDT) POCT Glucose 137(H) 74 - 99 mg/dL [...] 03/30/2024 5:51 PM EDT [facility] Metal Molder ID Kenneth Mcdaniels 5:51 PM EDT [facility] Device ID [id number] 03/30/2024 5:51 PM EDT [facility] Specimen Type POC Capillary 03/30/2024 5:51 PM EDT [facility] Blood Capillary blood specimen / Unknown 03/30/2024 5:48 PM EDT 03/30/2024 5:51 PM EDT Jeremy Cazares MD LAB POINT OF CARE TE ST DOCKED DEVICE UNSOLICITED RESULTS Final Result Performing Organization Address City/[facility]/ZIP Co de Phone Number [facility] [address] [place] [address] * Surgical Pathology Exam (03/30/2024 2:19 PM EDT) Case Report Surgical Pathology ?Case: [id number] ? Authorizing Provider: ??Jeremy Cazares MD ?Collected: ? 03/30/2024 1419 ? Ordering Location: ? [facility] ? Received: ?03/30/2024 1546 ? Pathologist: ? Travis Crandall, DO ? Specimens: ?? A) - Other (specify site), rectal biopsy ? B) - Other (specify site), omentum ? 4 2:34 PM EDT [facility] Final Diagnosis A. RECTUM, BIOPSY: - MODERATELY DIFFERENTIATED ADENOCARCINOMA, RECURRENT (HISTORY OF COLORECTAL ADENOCARCINOMA IN 2019). B. OMENTUM, EXCISION: - NEGATIVE FOR TUMOR. 4 2:34 PM EDT [facility] Clinical Information Rectal cancer ([facility]/HCC) [C20] 4 2:34 PM EDT [facility] Gross Description A. RECTAL BIOPSY Received in formalin labeled ? rectal biopsy? , are 5 dunham-red soft tissue fragments measuring 0.2-0.5 cm in greatest dimension. Specimen submitted entirely in cassette A1. Juhi Salazar. OMENTUM Received in formalin labeled ? omentum? , are 2 yellow/red fragments of thin, glistening adipose tissue measuring 11.5 x 4.9 x 1.5 cm in aggregate. Sectioning reveals a grossly unremarkable yellow, fatty cut surface. Interface Control Officer sections submitted in cassette B1. Additional sections submitted in cassettes B2 and B3 on 03/31/24. Juhi Lopez 4 2:34 PM EDT [facility] Intradepartmental Consultation with Agreement Dr. Plascencia 4 2:34 PM EDT [facility] Note: A resident was involved in the service. I attest I examined the relevant preparations for the specimens and confirmed the diagnosis or interpretation. 4 2:34 PM EDT [facility] Tissue Topography unknown / Unknown 03/30/2024 2:19 PM EDT 03/30/2024 3:46 PM EDT Comment:Pre-op diagnosis: Rectal cancer (CMS/HCC) [C20] Tissue specimen (specimen) Topography unknown / Unknown 03/30/2024 2:43 PM EDT 03/30/2024 3:46 PM EDT Comment:Pre-op diagnosis: Rectal cancer (CMS/HCC) [C20] Jeremy Cazares MD LAB PATHOLOGY ORDERABLES Final Result [facility] [address] [place] [address] * (ABNORMAL) POCT glucose meter (03/30/2024 10:59 AM EDT) POCT Glucose 105(H) 74 - 99 mg/dL 03/30/2024 12:07 PM EDT [facility] Comment:Accuracy of a [...] for testing. Comment 03/30/2024 12:07 PM EDT [facility] Metal Molder Shilpi Lacey 024 12:07 PM EDT [facility] Device ID [id number] 03/30/2024 12:07 PM EDT [facility] Specimen Type POC Capillary 03/30/2024 12:07 PM EDT [facility] Blood Capillary blood specimen / Unknown 03/30/2024 10:59 AM EDT 03/30/2024 12:07 PM EDT us Jeremy Cazares MD LAB POINT OF CARE TE ST DOCKED DEVICE UNSOLICITED RESULTS Final Result Performing Organization Address [facility] de Phone Number [facility] [address] [place] [address] * (ABNORMAL) POCT glucose meter (03/30/2024 6:10 AM EDT) [facility] POCT Glucose 109(H) 74 - 99 mg/dL 03/30/2024 6:14 AM EDT [facility] Comment:Accuracy of [...] for testing. Comment 03/30/2024 6:14 AM EDT [facility] Metal Molder ID Som Benito 03/30/2024 6:14 AM EDT [facility] Device ID [id number] 03/30/2024 6:14 AM EDT [facility] Specimen Type POC Capillary 03/30/2024 6:14 AM EDT [facility] Blood Capillary blood specimen / Unknown 03/30/2024 6:10 AM EDT 03/30/2024 6:14 AM EDT us Jeremy Cazares MD LAB POINT OF CARE TE ST DOCKED DEVICE UNSOLICITED RESULTS Final Result Performing Organization Address [facility] Co de Phone Number [facility] [address] [place] [address] * (ABNORMAL) Phosphorus (03/30/2024 1:21 AM EDT) [facility] Phosphorus, Plasma 2.0(L) 2.5 - 4.5 mg/dL 03/30/2024 2:20 AM EDT [facility] Blood Venous blood specimen / Unknown Venipuncture / Unknown 03/30/2024 1:21 AM EDT 03/30/2024 1:50 AM EDT us Jeremy Cazares MD LAB BLOOD ORDERABLES Final Res ult Performing Organization Address [facility] Co de Phone Number [facility] [address] [place] [address] * (ABNORMAL) Magnesium (03/30/2024 1:21 AM EDT) Magnesium, Plasma 1.6(L) 1.9 - 2.4 mg/dL 03/30/2024 2:20 AM EDT [facility] Blood Venous blood specimen / Unknown Venipuncture / Unknown 03/30/2024 1:21 AM EDT 03/30/2024 1:50 AM EDT us Jeremy Cazares MD LAB BLOOD ORDERABLES Final Res ult Performing Organization Address City/[facility] de Phone Number [facility] [address] [place] [address] * (ABNORMAL) Basic metabolic panel (03/30/2024 1:21 AM EDT) Glucose, Plasma 95 74 - 99 mg/dL 03/30/2024 2:20 AM EDT [facility] BUN, Plasma 6(L) 8 - 23 mg/dL 03/30/2024 2:20 AM EDT [facility] Creatinine, Plasma 0.52(L) 0.80 - 1.30 mg/dL 03/30/2024 2:20 AM EDT [facility] BUN/Creatinine Ratio 12 03/30/2024 2:20 AM EDT [facility] Sodium, Plasma 137 136 - 145 mmol/L 03/30/2024 2:20 AM EDT [facility] Potassium, Plasma 3.6(L) 3.7 - 4.8 mmol/L 03/30/2024 2:20 AM EDT [facility] Chloride, Plasma 106 97 - 107 mmol/L 03/30/2024 2:20 AM EDT [facility] CO2, Plasma 21(L) 22 - 29 mmol/L 03/30/2024 2:20 AM EDT [facility] Anion Gap 10 6 - 16 mmol/L 03/30/2024 2:20 AM EDT [facility] Total Calcium, Plasma 7.8(L) 8.9 - 10.2 mg/dL 03/30/2024 2:20 AM EDT [facility] eGFRcr 107.8 mL/min/1.7 3m*2 03/30/2024 2:20 AM EDT [facility] Comment:Reported eGFRcr in m L/min/1.73m2 is based the CKD-EPI 2020 equation that does not use a race coefficient. Blood Venous blood specimen / Unknown Venipuncture / Unknown 03/30/2024 1:21 AM EDT 03/30/2024 1:50 AM EDT us Jeremy Cazares MD LAB BLOOD ORDERABLES Final Res ult [facility] [address] [place] [address] * (ABNORMAL) CBC W/O Differential (03/30/2024 1:21 AM EDT) WBC Count 11.59(H) 3.70 - 10.30 10*3/uL LAB HEMATOLOGY METHOD 03/30/2024 1:58 AM EDT [facility] RBC Count 4.42(L) 4.60 - 6.10 10*6/uL LAB HEMATOLOGY METHOD 03/30/2024 1:58 AM EDT [facility] HGB 10.3(L) 13.7 - 17.5 g/dL LAB HEMATOLOGY METHOD 03/30/2024 1:58 AM EDT [facility] HCT 33.2(L) 40.0 - 51.0 % LAB HEMATOLOGY METHOD 03/30/2024 1:58 AM EDT [facility] Platelet Count 245 155 - 369 10*3/uL LAB HEMATOLOGY METHOD 03/30/2024 1:58 AM EDT [facility] MCV 75(L) 79 - 98 fL LAB HEMATOLOGY METHOD 03/30/2024 1:58 AM EDT [facility] MCH 23.3(L) 26.0 - 32.0 pg LAB HEMATOLOGY METHOD 03/30/2024 1:58 AM EDT [facility] MCHC 31.0 30.7 - 35.5 g/dL LAB HEMATOLOGY METHOD 03/30/2024 1:58 AM EDT [facility] RDW 18.2(H) 11.5 - 14.5 % LAB HEMATOLOGY METHOD 03/30/2024 1:58 AM EDT [facility] MPV 9.3 8.8 - 12.5 fL LAB HEMATOLOGY METHOD 03/30/2024 1:58 AM EDT [facility] nRBC 0.0 <=0.0 per 100 WBCs LAB HEMATOLOGY METHOD 03/30/2024 1:58 AM EDT [facility] Blood Venous blood specimen / Unknown Venipuncture / Unknown 03/30/2024 1:21 AM EDT 03/30/2024 1:50 AM EDT us Jeremy Cazares MD LAB BLOOD ORDERABLES Final Res ult Performing Organization Address City/State/[facility] Co de Phone Number [facility] [address] [place] [address] * (ABNORMAL) POCT glucose meter (03/30/2024 12:21 AM EDT) POCT Glucose 108(H) 74 - 99 mg/dL [...] Comment 03/30/2024 12:23 AM EDT [facility] Metal Molder ID Sammi Hester 12:23 AM EDT [facility] Device ID [id number] 03/30/2024 12:23 AM EDT [facility] Specimen Type POC Capillary 03/30/2024 12:23 AM EDT [facility] Blood Capillary blood specimen / Unknown 03/30/2024 12:21 AM EDT 03/30/2024 12:23 AM EDT Jeremy Cazares MD LAB POINT OF CARE TE ST DOCKED DEVICE UNSOLICITED RESULTS Final Result Performing Organization Address City/[facility] Co de Phone Number [facility] [address] [place] [address] * (ABNORMAL) POCT glucose meter (03/29/2024 5:43 PM EDT) POCT Glucose 110(H) 74 - 99 mg/dL 03/29/2024 5:45 PM EDT [facility] Comment:Accuracy of [...] Comment 03/29/2024 5:45 PM EDT [facility] Metal Molder ID Kenneth Mcdaniels 5:45 PM EDT [facility] Device ID [id number] 03/29/2024 5:45 PM EDT [facility] Specimen Type POC Capillary 03/29/2024 5:45 PM EDT [facility] Blood Capillary blood specimen / Unknown 03/29/2024 5:43 PM EDT 03/29/2024 5:45 PM EDT Jeremy Cazares MD LAB POINT OF CARE TE ST DOCKED DEVICE UNSOLICITED RESULTS Final Result Performing Organization Address City/[facility] Co de Phone Number [facility] [address] [place] [address] * Prepare Leukocyte Reduced RBC: 1 Units (03/29/2024 5:14 PM EDT) Product Code [id number] CH BLOO D BANK Dispense Status Transfused BLOOD BANK Blood Expiration Date [id number] BLOOD BANK Unit Number [id number] CH B LOOD BANK Product Blood Type 6200 BLOOD BANK Blood Type A+ BLOOD BANK Crossmatch Compatible BLOOD BANK Other Jeremy Cazares MD BLOOD BANK PRODUCT ORDERABLES Final Result Performing Organization Address [facility] de Phone Number BLOOD BANK [address] [place] [address], * (ABNORMAL) POCT glucose meter (03/29/2024 11:30 AM EDT) POCT Glucose 116(H) 74 - 99 mg/dL 03/29/2024 11:45 AM EDT [facility] Comment:Accuracy of [...] Comment 03/29/2024 11:45 AM EDT [facility] Metal Molder ID Kenneth Mcdaniels 11:45 AM EDT [facility] Device ID [id number] 03/29/2024 11:45 AM EDT [facility] Specimen Type POC Capillary 03/29/2024 11:45 AM EDT [facility] Blood Capillary blood specimen / Unknown 03/29/2024 11:30 AM EDT 03/29/2024 11:45 AM EDT Jeremy Cazares MD LAB POINT OF CARE TE ST DOCKED DEVICE UNSOLICITED RESULTS Final Result Performing Organization Address [facility] de Phone Number [facility] [address] [place] [address] * XR Chest 1 View (03/29/2024 8:05 [...] Mitchell MD on 03/29/2024 2:07 PM us Jeremy Cazares MD IMG XR PROCEDURES Final Result * (ABNORMAL) Vancomycin, Peak, Plasma Please draw ~2 hours after 2300 dose of vancomycin finishes infusing. Consider obtaining level via peripheral stick. If peripheral stick is not feasible, please ensure that line is flushed well prior to drawing level. Than... (03/29/2024 2:39 AM EDT) [facility] Vancomycin, Peak, Plasma 17.6(L) 20.0 - 40.0 ug/mL 03/29/2024 3:20 AM EDT [facility] Blood Venous blood specimen / Unknown Venipuncture / Unknown 03/29/2024 2:39 AM EDT 03/29/2024 2:49 AM EDT Narrative [facility] - 03/29/2024 3:20 AM EDT Therapeutic Peak level: ? 20-40ug/mL Supra-therapeutic Peak level: ??>40 ug/mL us Jeremy Cazares MD LAB BLOOD ORDERABLES Final Res ult [facility] [address] [place] [address] * (ABNORMAL) POCT glucose meter (03/29/2024 12:42 AM EDT) [facility] POCT Glucose 117(H) 74 - 99 mg/dL 03/29/2024 12:47 AM EDT [facility] Comment:Accuracy of [...] Comment 03/29/2024 12:47 AM EDT [facility] Metal Molder ID Dian Bruce 03/29/2024 12:47 AM EDT [facility] Device ID [id number] 03/29/2024 12:47 AM EDT [facility] Specimen Type POC Capillary 03/29/2024 12:47 AM EDT [facility] Blood Capillary blood specimen / Unknown 03/29/2024 12:42 AM EDT 03/29/2024 12:47 AM EDT Jeremy Cazares MD LAB POINT OF CARE TE ST DOCKED DEVICE UNSOLICITED RESULTS Final Result [facility] [address] [place] [id number] * (ABNORMAL) Vancomycin, Trough, Plasma Please draw ~30 minutes prior to dose due at 2300 on 03/28. Please do NOT hold dose awaiting level to return. Consider obtaining level via peripheral stick. If peripheral stick is not feasible, please ensure that line is... (03/28/2024 10:53 PM EDT) [facility] Vancomycin, Trough, Plasma 6.4(L) 10.0 - 20.0 ug/mL 03/28/2024 11:41 PM EDT [facility] Blood Venous blood specimen / Unknown Venipuncture / Unknown 03/28/2024 10:53 PM EDT 03/28/2024 11:07 PM EDT Narrative [facility] - 03/28/2024 11:41 PM EDT Therapeutic Trough level: ? 10-20ug/mL Supra-therapeutic Trough level: ??>20 ug/mL us Jeremy Cazares MD LAB BLOOD ORDERABLES Final Res ult [facility] [address] [place] [address] * (ABNORMAL) POCT glucose meter (03/28/2024 7:44 PM EDT) Pathologist [facility] POCT Glucose 116(H) 74 - 99 mg/dL 03/28/2024 7:45 PM EDT [facility] Comment:Accuracy of a [...] for testing. Comment 03/28/2024 7:45 PM EDT [facility] Metal Molder ID Kishore Phillips 03/28/2024 7:45 PM EDT [facility] Device ID [id number] 03/28/2024 7:45 PM EDT [facility] Specimen Type POC Capillary 03/28/2024 7:45 PM EDT [facility] Blood Capillary blood specimen / Unknown 03/28/2024 7:44 PM EDT 03/28/2024 7:45 PM EDT Jeremy Cazares MD LAB POINT OF CARE TE ST DOCKED DEVICE UNSOLICITED RESULTS Final Result [facility] [address] [place] [address] * (ABNORMAL) POCT glucose meter (03/28/2024 3:39 PM EDT) Pathologist [facility] POCT Glucose 131(H) 74 - 99 mg/dL 03/28/2024 3:41 PM EDT [facility] Comment:Accuracy of [...] for testing. Comment 03/28/2024 3:41 PM EDT [facility] Metal Molder ID Tania Cordon 3:41 PM EDT [facility] Device ID [id number] 03/28/2024 3:41 PM EDT [facility] Specimen Type POC Capillary 03/28/2024 3:41 PM EDT [facility] Blood Capillary blood specimen / Unknown 03/28/2024 3:39 PM EDT 03/28/2024 3:41 PM EDT Jeremy Cazares MD LAB POINT OF CARE TE ST DOCKED DEVICE UNSOLICITED RESULTS Final Result Performing Organization Address City/[facility]/ZIP Co de Phone Number [facility] [address] [place] [address] * (ABNORMAL) POCT glucose meter (03/28/2024 11:31 AM EDT) [facility] POCT Glucose 105(H) 74 - 99 mg/dL 03/28/2024 11:33 AM EDT [facility] Comment:Accuracy of a [...] Comment 03/28/2024 11:33 AM EDT [facility] Metal Molder ID Cami Oakley 024 11:33 AM EDT [facility] Device ID [id number] 03/28/2024 11:33 AM EDT [facility] Specimen Type POC Capillary 03/28/2024 11:33 AM EDT [facility] Blood Capillary blood specimen / Unknown 03/28/2024 11:31 AM EDT 03/28/2024 11:33 AM EDT us Jeremy Cazares MD LAB POINT OF CARE TE ST DOCKED DEVICE UNSOLICITED RESULTS Final Result Performing Organization Address City/[facility]/ZIP Co de Phone Number HEALTHCARE LAB [address] [place] [address] * (ABNORMAL) Methicillin Resistant Staphylococcus aureus (MRSA) by PCR (03/28/2024 10:03 AM EDT) Pathologist [facility] Methicillin Resistant Staphylococcus aureus (MRSA) by PCR Detected( A) Not Detected 03/28/2024 11:45 AM EDT [facility]ALTHCARE LAB Swab Both anterior nares / Unknown Non-blood Collection / Unknown 03/28/2024 10:03 AM EDT 03/28/2024 10:09 AM EDT Narrative HEALTHCARE LAB - 03/28/2024 11:45 AM EDT [...] ORD ERABLES Final Result Performing Organization Address City/[facility]/ZIP Co de Phone Number [facility] [address] [place] [address] * Cystatin C (03/28/2024 6:18 AM EDT) [facility] Cystatin C 0.94 0.82 - 1.52 mg/L 03/28/2024 9:47 AM EDT HEALTHCARE LAB Blood Venous blood specimen / Unknown Venipuncture / Unknown 03/28/2024 6:18 AM EDT 03/28/2024 6:23 AM EDT us Jeremy Cazares MD LAB BLOOD ORDERABLES Final Res ult Performing Organization Address City/[facility]/ZIP Co de Phone Number [facility] [address] [place] [address] * (ABNORMAL) Phosphorus (03/28/2024 6:18 AM EDT) Pathologist [facility] Phosphorus, Plasma 2.3(L) 2.5 - 4.5 mg/dL 03/28/2024 6:52 AM EDT [facility]ALTHCARE LAB Blood Venous blood specimen / Unknown Venipuncture / Unknown 03/28/2024 6:18 AM EDT 03/28/2024 6:23 AM EDT us Jeremy Cazares MD LAB BLOOD ORDERABLES Final Res ult Performing Organization Address City/[facility]/ZIP Co de Phone Number [facility]ALTHCARE LAB [address] [place] [address] * (ABNORMAL) Magnesium (03/28/2024 6:18 AM EDT) Magnesium, Plasma 1.8(L) 1.9 - 2.4 mg/dL 03/28/2024 6:52 AM EDT [facility] Blood Venous blood specimen / Unknown Venipuncture / Unknown 03/28/2024 6:18 AM EDT 03/28/2024 6:23 AM EDT us Jeremy Cazares MD LAB BLOOD ORDERABLES Final Res ult Performing Organization Address [facility] Co de Phone Number [facility]ARE [facility] [address] [place] [address] * (ABNORMAL) Basic metabolic panel (03/28/2024 6:18 AM EDT) Glucose, Plasma 142(H) 74 - 99 mg/dL 03/28/2024 6:52 AM EDT [facility] BUN, Plasma 18 8 - 23 mg/dL 03/28/2024 6:52 AM EDT [facility] Creatinine, Plasma 0.57(L) 0.80 - 1.30 mg/dL 03/28/2024 6:52 AM EDT [facility] BUN/Creatinine Ratio 32 03/28/2024 6:52 AM EDT [facility] Sodium, Plasma 137 136 - 145 mmol/L 03/28/2024 6:52 AM EDT [facility] Potassium, Plasma 3.7 3.7 - 4.8 mmol/L 03/28/2024 6:52 AM EDT [facility] Chloride, Plasma 107 97 - 107 mmol/L 03/28/2024 6:52 AM EDT [facility] CO2, Plasma 19(L) 22 - 29 mmol/L 03/28/2024 6:52 AM EDT [facility] Anion Gap 11 6 - 16 mmol/L 03/28/2024 6:52 AM EDT [facility] Total Calcium, Plasma 8.0(L) 8.9 - 10.2 mg/dL 03/28/2024 6:52 AM EDT [facility] eGFRcr 104.8 mL/min/1.7 3m*2 03/28/2024 6:52 AM EDT [facility] Comment:Reported eGFRcr in m L/min/1.73m2 is based the CKD-EPI 2020 equation that does not use a race coefficient. Blood Venous blood specimen / Unknown Venipuncture / Unknown 03/28/2024 6:18 AM EDT 03/28/2024 6:23 AM EDT us Jeremy Cazares MD LAB BLOOD ORDERABLES Final Res ult [facility] [address] [place] [id number] * (ABNORMAL) CBC W/O Differential (03/28/2024 6:18 AM EDT) WBC Count 16.83(H) 3.70 - 10.30 10*3/uL LAB HEMATOLOGY METHOD 03/28/2024 6:31 AM EDT [facility] RBC Count 3.74(L) 4.60 - 6.10 10*6/uL LAB HEMATOLOGY METHOD 03/28/2024 6:31 AM EDT [facility] HGB 8.4(L) 13.7 - 17.5 g/dL LAB HEMATOLOGY METHOD 03/28/2024 6:31 AM EDT [facility] HCT 28.0(L) 40.0 - 51.0 % LAB HEMATOLOGY METHOD 03/28/2024 6:31 AM EDT [facility] Platelet Count 299 155 - 369 10*3/uL LAB HEMATOLOGY METHOD 03/28/2024 6:31 AM EDT [facility] MCV 75(L) 79 - 98 fL LAB HEMATOLOGY METHOD 03/28/2024 6:31 AM EDT [facility] MCH 22.5(L) 26.0 - 32.0 pg LAB HEMATOLOGY METHOD 03/28/2024 6:31 AM EDT [facility] MCHC 30.0(L) 30.7 - 35.5 g/dL LAB HEMATOLOGY METHOD 03/28/2024 6:31 AM EDT [facility] RDW 17.5(H) 11.5 - 14.5 % LAB HEMATOLOGY METHOD 03/28/2024 6:31 AM EDT [facility] MPV 9.1 8.8 - 12.5 fL LAB HEMATOLOGY METHOD 03/28/2024 6:31 AM EDT [facility] nRBC 0.0 <=0.0 per 100 WBCs LAB HEMATOLOGY METHOD 03/28/2024 6:31 AM EDT [facility] Blood Venous blood specimen / Unknown Venipuncture / Unknown 03/28/2024 6:18 AM EDT 03/28/2024 6:23 AM EDT us Jeremy Cazares MD LAB BLOOD ORDERABLES Final Res ult Performing Organization Address City/[facility]/ZIP Co de Phone Number [facility] [address] [place] [address] * (ABNORMAL) POCT glucose meter (03/28/2024 5:11 AM EDT) POCT Glucose 126(H) 74 - 99 mg/dL 03/28/2024 5:13 AM EDT [facility] Comment:Accuracy of a glucos e result [...] for testing. Comment 03/28/2024 5:13 AM EDT [facility] Metal Molder ID OwuorSae 5:13 AM EDT [facility] Device ID [id number] 03/28/2024 5:13 AM EDT [facility] Specimen Type POC Capillary 03/28/2024 5:13 AM EDT [facility] Blood Capillary blood specimen / Unknown 03/28/2024 5:11 AM EDT 03/28/2024 5:13 AM EDT us Jeremy Cazares MD LAB POINT OF CARE TE ST DOCKED DEVICE UNSOLICITED RESULTS Final Result Performing Organization Address City/[facility]/ZIP Co de Phone Number [facility] [address] [place] [address] * XR Chest 1 View (03/28/2024 2:17 [...] - 99 mg/dL 03/27/2024 11:52 PM EDT [facility] Comment:Accuracy of a glucos e result [...] for testing. Comment 03/27/2024 11:52 PM EDT [facility]ALTHCARE LAB Metal Molder ID Som Benito 03/27/2024 11:52 PM EDT HEALTHCARE LAB Device ID [id number] 03/27/2024 11:52 PM EDT [facility]ALTH[facility]ARE LAB Specimen Type POC Capillary 03/27/2024 11:52 PM EDT [facility] Blood Capillary blood specimen / Unknown 03/27/2024 11:50 PM EDT 03/27/2024 11:52 PM EDT us Jeremy Cazares MD LAB POINT OF CARE TE ST DOCKED DEVICE UNSOLICITED RESULTS Final Result Performing Organization Address City/[facility] Co de Phone Number [facility]ALTH[facility]ARE [facility] [address] [place] [address] * Transfuse RBC (03/27/2024 6:17 PM EDT) [...] TEST ORDERABLES Final Result Performing Organization Address [facility] de Phone Number BLOOD BANK [address] [place] [address], [place] * Prepare Leukocyte Reduced RBC: 1 Units (03/27/2024 1:47 PM EDT) Product Code [id number] CH BLOO D BANK Dispense Status Transfused BLOOD BANK Blood Expiration Date [id number] BLOOD BANK Unit Number [id number] CH B LOOD BANK Product Blood Type 6200 BLOOD BANK Blood Type A+ CH BLOOD BANK Crossmatch Compatible CH BLOOD BANK Other us Jeremy Cazares MD BLOOD BANK PRODUCT ORDERABLES Final Result BLOOD BANK [address] [place] [address], [place] * CT Chest w IV Contrast [...] 2:04 PM Final report signed by Levi Mccodr MD on 03/27/2024 2:19 PM Narrative 03/27/2024 [...] (Clostridium) difficile PCR (03/27/2024 11:40 AM EDT) C difficile PCR toxin B gene DNA Result Not Detected Not Detected 03/27/2024 1:10 PM EDT [facility] Stool Rectum structure / Unknown Non-blood Collection / Unknown 03/27/2024 11:40 AM EDT 03/27/2024 11:52 AM EDT Narrative [facility] - 03/27/2024 1:10 PM EDT This [...] ORD ERABLES Final Result Performing Organization Address [facility] Co de Phone Number [facility] [address] [place] [address] * Lactate, venous (03/27/2024 9:09 AM EDT) Pathologist [facility] Lactate, Venous, Whole Blood 2.2 0.5 - 2.2 mmol/L LAB HEMATOLOGY METHOD 03/27/2024 9:14 AM EDT [facility] Blood Venous blood specimen / Unknown Venipuncture / Unknown 03/27/2024 9:09 AM EDT 03/27/2024 9:13 AM EDT us Jeremy Cazares MD LAB BLOOD ORDERABLES Final Res ult Performing Organization Address [facility] Co de Phone Number [facility] [address] [place] [address] * (ABNORMAL) Comprehensive Metabolic Panel, Plasma (03/27/2024 3:20 AM EDT) Glucose, Plasma 129(H) 74 - 99 mg/dL 03/27/2024 4:07 AM [facility] BUN, Plasma 14 8 - 23 mg/dL 03/27/2024 4:07 AM [facility] Creatinine, Plasma 0.79(L) 0.80 - 1.30 mg/dL 03/27/2024 4:07 AM [facility] BUN/Creatinine Ratio 18 03/27/2024 4:07 AM [facility] Sodium, Plasma 137 136 - 145 mmol/L 03/27/2024 4:07 AM [facility] Potassium, Plasma 3.5(L) 3.7 - 4.8 mmol/L 03/27/2024 4:07 AM [facility] Chloride, Plasma 105 97 - 107 mmol/L 03/27/2024 4:07 AM [facility] CO2, Plasma 20(L) 22 - 29 mmol/L 03/27/2024 4:07 AM [facility] Anion Gap 12 6 - 16 mmol/L 03/27/2024 4:07 AM [facility] Total Calcium, Plasma 7.8(L) 8.9 - 10.2 mg/dL 03/27/2024 4:07 AM [facility] Total Protein 4.7(L) 6.3 - 7.9 g/dL 03/27/2024 4:07 AM [facility] Albumin, Plasma 2.2(L) 3.5 - 5.2 g/dL 03/27/2024 4:07 AM [facility] AST, Plasma 15 10 - 50 U/L 03/27/2024 4:07 AM [facility] ALT, Plasma 7(L) 10 - 50 U/L 03/27/2024 4:07 AM [facility] Alkaline Phosphatase, Plasma 231(H) 40 - 115 U/L 03/27/2024 4:07 AM [facility] Total Bilirubin, Plasma 0.5 0.2 - 1.1 mg/dL 03/27/2024 4:07 AM [facility] eGFRcr 95.0 mL/min/1.7 3m*2 03/27/2024 4:07 AM EDT [facility] Comment:Reported eGFRcr in m L/min/1.73m2 is based the CKD-EPI 2020 equation that does not use a race coefficient. Blood Venous blood specimen / Unknown Venipuncture / Unknown 03/27/2024 3:20 AM EDT 03/27/2024 3:36 AM EDT Jeremy Cazares MD LAB BLOOD ORDERABLES Final Res ult [facility] [address] [place] [address] * (ABNORMAL) CBC W/O Differential (03/27/2024 3:20 AM EDT) WBC Count 19.77(H) 3.70 - 10.30 10*3/uL LAB HEMATOLOGY METHOD 03/27/2024 3:45 AM EDT [facility] RBC Count 3.23(L) 4.60 - 6.10 10*6/uL LAB HEMATOLOGY METHOD 03/27/2024 3:45 AM EDT [facility] HGB 7.0(L) 13.7 - 17.5 g/dL LAB HEMATOLOGY METHOD 03/27/2024 3:45 AM EDT [facility] HCT 23.4(L) 40.0 - 51.0 % LAB HEMATOLOGY METHOD 03/27/2024 3:45 AM EDT [facility] Platelet Count 269 155 - 369 10*3/uL LAB HEMATOLOGY METHOD 03/27/2024 3:45 AM EDT [facility] MCV 72(L) 79 - 98 fL LAB HEMATOLOGY METHOD 03/27/2024 3:45 AM EDT [facility] MCH 21.7(L) 26.0 - 32.0 pg LAB HEMATOLOGY METHOD 03/27/2024 3:45 AM EDT [facility] MCHC 29.9(L) 30.7 - 35.5 g/dL LAB HEMATOLOGY METHOD 03/27/2024 3:45 AM EDT [facility] RDW 17.7(H) 11.5 - 14.5 % LAB HEMATOLOGY METHOD 03/27/2024 3:45 AM EDT [facility] MPV 9.3 8.8 - 12.5 fL LAB HEMATOLOGY METHOD 03/27/2024 3:45 AM EDT [facility] nRBC 0.0 <=0.0 per 100 WBCs LAB HEMATOLOGY METHOD 03/27/2024 3:45 AM EDT [facility]ALTH[facility] Blood Venous blood specimen / Unknown Venipuncture / Unknown 03/27/2024 3:20 AM EDT 03/27/2024 3:36 AM EDT us Jeremy Cazares MD LAB BLOOD ORDERABLES Final Res ult Performing Organization Address City/[facility]/ZIP Co de Phone Number [facility]ALTHCARE LAB [address] [place] [address] * Magnesium, Plasma (03/27/2024 3:20 AM EDT) Pathologist [facility] Magnesium, Plasma 2.2 1.9 - 2.4 mg/dL 03/27/2024 4:07 AM EDT [facility] Blood Venous blood specimen / Unknown Venipuncture / Unknown 03/27/2024 3:20 AM EDT 03/27/2024 3:36 AM EDT us Jeremy Cazares MD LAB BLOOD ORDERABLES Final Res ult Performing Organization Address [facility] de Phone Number [facility]ARE [facility] [address] [place] [address] * Phosphorus, Plasma (03/27/2024 3:20 AM EDT) [facility] Phosphorus, Plasma 3.7 2.5 - 4.5 mg/dL 03/27/2024 4:07 AM EDT [facility] Blood Venous blood specimen / Unknown Venipuncture / Unknown 03/27/2024 3:20 AM EDT 03/27/2024 3:36 AM EDT us Jeremy Cazares MD LAB BLOOD ORDERABLES Final Res ult Performing Organization Address City/[facility] Co de Phone Number [facility] [address] [place] [address] * (ABNORMAL) POCT glucose meter (03/26/2024 9:05 PM EDT) POCT Glucose 136(H) 74 - 99 mg/dL 03/26/2024 9:06 PM EDT [facility] Comment:Accuracy of a [...] for testing. Comment 03/26/2024 9:06 PM EDT [facility] Metal Molder ID Alison Kingsley 03/26/2024 9:06 PM EDT [facility]ALTH[facility]ARE LAB Device ID [id number] 03/26/2024 9:06 PM EDT [facility] Specimen Type POC Capillary 03/26/2024 9:06 PM EDT [facility] Blood Capillary blood specimen / Unknown 03/26/2024 9:05 PM EDT 03/26/2024 9:06 PM EDT Jeremy Cazares MD LAB POINT OF CARE TE ST DOCKED DEVICE UNSOLICITED RESULTS Final Result [facility] [address] [place] [address] * XR Chest 1 View (03/26/2024 4:57 [...] Lactate, venous (03/26/2024 3:50 PM EDT) Pathologist [facility] Lactate, Venous, Whole Blood 5.8(H) 0.5 - 2.2 mmol/L LAB HEMATOLOGY METHOD 03/26/2024 4:00 PM EDT [facility] Blood Venous blood specimen / Unknown Venipuncture / Unknown 03/26/2024 3:50 PM EDT 03/26/2024 3:58 PM EDT us Jeremy Cazares MD LAB BLOOD ORDERABLES Final Res ult [facility] [address] [place] [address] * (ABNORMAL) POCT glucose meter (03/26/2024 3:49 PM EDT) Pathologist [facility] POCT Glucose 101(H) 74 - 99 mg/dL 03/26/2024 6:44 PM EDT [facility] Comment:Accuracy of a glucos e result [...] for testing. Comment 03/26/2024 6:44 PM EDT [facility] Metal Molder ID Yahaira Gupta 03/26/2024 6:44 PM EDT [facility] Device ID [id number] 03/26/2024 6:44 PM EDT HEALTHCARE LAB Specimen Type POC Venous 03/26/2024 6:44 PM EDT [facility] Blood Venous blood specimen / Unknown 03/26/2024 3:49 PM EDT 03/26/2024 6:44 PM EDT us Jeremy Cazares MD LAB POINT OF CARE TE ST DOCKED DEVICE UNSOLICITED RESULTS Final Result Performing Organization Address City/[facility] Co de Phone Number HEALTHCARE LAB [address] [place] [address] * Light Green Top (03/26/2024 2:49 PM EDT) Pathologist [facility] Extra Hold for add-ons 03/26/2024 5:01 PM EDT [facility]ALTH[facility] Comment:Auto resulted. Blood Venous blood specimen / Unknown 03/26/2024 2:49 PM EDT 03/26/2024 2:49 PM EDT us Jeremy Cazares MD LAB BLOOD ORDERABLES Final Res ult Performing Organization Address [facility] de Phone Number [facility]ARE [facility] [address] [place] [address] * POCT glucose meter (03/26/2024 2:27 PM EDT) [facility] POCT Glucose 92 74 - [...] for testing. Comment 03/26/2024 2:29 PM EDT [facility] Metal Molder ID Yahaira Gupta 03/26/2024 2:29 PM EDT [facility] LAB Device ID [id number] 03/26/2024 2:29 PM EDT [facility] Specimen Type POC Venous 03/26/2024 2:29 PM EDT [facility] Blood Venous blood specimen / Unknown 03/26/2024 2:27 PM EDT 03/26/2024 2:29 PM EDT us Jeremy Cazares MD LAB POINT OF CARE TE ST DOCKED DEVICE UNSOLICITED RESULTS Final Result Performing Organization Address [facility] Co de Phone Number [facility] [address] [place] [address] * ECG Adult (03/26/2024 1:45 PM EDT) EKG DIAGNOSIS CLASS Abnormal MUSE ECG Ventricular Rate 138 BPM MUSE ECG Atrial Rate 138 BPM MUSE ECG ID Interval 142 ms MUSE ECG QRSD Interval 74 ms MUSE ECG QT Interval 304 ms MUSE ECG QTC Interval 461 ms MUSE ECG P [place] 81 degrees MUSE ECG R [place] 56 degrees MUSE ECG T Wave [place] 91 degrees MUSE ECG Diagnosis Sinus tachycardia [...] 1:45 PM EDT 03/26/2024 5:31 PM EDT us Jeremy Cazares MD ECG ORDERABLES Final Result Performing Organization Address [facility] Co de Phone Number MUSE ECG * (ABNORMAL) Blood Culture Fungal [...] MICROBIOLOGY - GENERAL ORD ERABLES Final Result [facility] [address] [place] [address] * (ABNORMAL) Comprehensive metabolic panel (03/26/2024 1:13 PM EDT) Glucose, Plasma 70(L) 74 - 99 mg/dL 03/26/2024 2:17 PM EDT [facility] BUN, Plasma 8 8 - 23 mg/dL 03/26/2024 2:17 PM EDT [facility] Creatinine, Plasma 0.70(L) 0.80 - 1.30 mg/dL 03/26/2024 2:17 PM EDT [facility] BUN/Creatinine Ratio 11 03/26/2024 2:17 PM EDT [facility] Sodium, Plasma 138 136 - 145 mmol/L 03/26/2024 2:17 PM EDT [facility] Potassium, Plasma 3.5(L) 3.7 - 4.8 mmol/L 03/26/2024 2:17 PM EDT [facility] Chloride, Plasma 104 97 - 107 mmol/L 03/26/2024 2:17 PM EDT [facility] CO2, Plasma 18(L) 22 - 29 mmol/L 03/26/2024 2:17 PM EDT [facility] Anion Gap 16 6 - 16 mmol/L 03/26/2024 2:17 PM EDT [facility] Total Calcium, Plasma 8.2(L) 8.9 - 10.2 mg/dL 03/26/2024 2:17 PM EDT [facility] Total Protein 5.5(L) 6.3 - 7.9 g/dL 03/26/2024 2:17 PM EDT [facility] Albumin, Plasma 2.5(L) 3.5 - 5.2 g/dL 03/26/2024 2:17 PM EDT [facility] AST, Plasma 19 10 - 50 U/L 03/26/2024 2:17 PM EDT [facility] ALT, Plasma 8(L) 10 - 50 U/L 03/26/2024 2:17 PM EDT [facility] Alkaline Phosphatase, Plasma 362(H) 40 - 115 U/L 03/26/2024 2:17 PM EDT [facility] Total Bilirubin, Plasma 1.4(H) 0.2 - 1.1 mg/dL 03/26/2024 2:17 PM EDT [facility] eGFRcr 98.5 mL/min/1.7 3m*2 03/26/2024 2:17 PM EDT [facility] Comment:Reported eGFRcr in m L/min/1.73m2 is based the CKD-EPI 2020 equation that does not use a race coefficient. Blood Venous blood specimen / Unknown Venipuncture / Unknown 03/26/2024 1:13 PM EDT 03/26/2024 1:21 PM EDT us Jeremy Cazares MD LAB BLOOD ORDERABLES Final Res ult [facility] [address] [place], [place] [id number] * (ABNORMAL) CBC W/O Differential (03/26/2024 1:13 PM EDT) WBC Count 24.18(H) 3.70 - 10.30 10*3/uL LAB HEMATOLOGY METHOD 03/26/2024 2:38 PM EDT [facility] RBC Count 3.97(L) 4.60 - 6.10 10*6/uL LAB HEMATOLOGY METHOD 03/26/2024 2:38 PM EDT [facility] HGB 8.5(L) 13.7 - 17.5 g/dL LAB HEMATOLOGY METHOD 03/26/2024 2:38 PM EDT [facility] HCT 29.3(L) 40.0 - 51.0 % LAB HEMATOLOGY METHOD 03/26/2024 2:38 PM EDT [facility] Platelet Count 313 155 - 369 10*3/uL LAB HEMATOLOGY METHOD 03/26/2024 2:38 PM EDT [facility] MCV 74(L) 79 - 98 fL LAB HEMATOLOGY METHOD 03/26/2024 2:38 PM EDT [facility] MCH 21.4(L) 26.0 - 32.0 pg LAB HEMATOLOGY METHOD 03/26/2024 2:38 PM EDT [facility] MCHC 29.0(L) 30.7 - 35.5 g/dL LAB HEMATOLOGY METHOD 03/26/2024 2:38 PM EDT [facility] RDW 17.4(H) 11.5 - 14.5 % LAB HEMATOLOGY METHOD 03/26/2024 2:38 PM EDT [facility] MPV 8.7(L) 8.8 - 12.5 fL LAB HEMATOLOGY METHOD 03/26/2024 2:38 PM EDT [facility] nRBC 0.0 <=0.0 per 100 WBCs LAB HEMATOLOGY METHOD 03/26/2024 2:38 PM EDT [facility] Blood Venous blood specimen / Unknown Venipuncture / Unknown 03/26/2024 1:13 PM EDT 03/26/2024 1:21 PM EDT us Jeremy Cazares MD LAB BLOOD ORDERABLES Final Res ult [facility] [address] [place] [address] * (ABNORMAL) Blood Culture (Aerobic/Anaerobet Set) (03/26/2024 1:13 PM EDT) Culture Clavispora lusitaniae (formerly Coco lusitaniae)(AA ) TONNY 03/30/2024 3:18 PM EDT [facility] Comment: Isolated from aerobic culture bottle only. This result was determined by [employer]DI tof mass spectrometry using the [place] [employer] database and is for research use only. The organism value for this result has been updated. These results have been appended to the previously preliminary verified report. Edited result: Previously reported as Yeast on 03/28/2024 at 1349 EDT. Gram Stain Budding yeast(AA) 03/30/2024 3:18 PM EDT [facility] Comment: Organism seen in Aerobic Blood [...] with TONNY values reported for remaining results. Jeremy Cazares MD LAB MICROBIOLOGY - GENERAL ORD ERABLES Final Result Performing Organization Address City/[facility]/ZIP Co de Phone Number [facility] [address] [place] [address] * Blood Culture (Aerobic/Anaerobet Set) (03/26/2024 1:13 PM EDT) Culture No growth at day 5 TONNY 03/31/2024 2:01 PM EDT [facility] Blood Structure of antecubital vein / Unknown Venipuncture / Unknown 03/26/2024 1:13 PM EDT 03/26/2024 1:37 PM EDT us Jeremy Cazares MD LAB MICROBIOLOGY - GENERAL ORD ERABLES Final Result Performing Organization Address City/[facility]/ZIP Co de Phone Number [facility] [address] [place] [address] * Phosphorus, Plasma (03/26/2024 3:53 AM EDT) Phosphorus, Plasma 2.6 2.5 - 4.5 mg/dL 03/26/2024 4:34 AM EDT [facility] Blood Venous blood specimen / Unknown Venipuncture / Unknown 03/26/2024 3:53 AM EDT 03/26/2024 4:05 AM EDT us Jeremy Cazares MD LAB BLOOD ORDERABLES Final Res ult Performing Organization Address [facility] de Phone Number [facility] [address] [place] [address] * (ABNORMAL) Magnesium, Plasma (03/26/2024 3:53 AM EDT) [facility] Magnesium, Plasma 1.7(L) 1.9 - 2.4 mg/dL 03/26/2024 4:34 AM EDT [facility] Blood Venous blood specimen / Unknown Venipuncture / Unknown 03/26/2024 3:53 AM EDT 03/26/2024 4:05 AM EDT us Jeremy Cazares MD LAB BLOOD ORDERABLES Final Res ult Performing Organization Address [facility] Phone Number [facility] [address] [place] [address] * (ABNORMAL) Basic Metabolic Panel, Plasma (03/26/2024 3:53 AM EDT) [facility] Glucose, Plasma 138(H) 74 - 99 mg/dL 03/26/2024 4:34 AM EDT [facility] BUN, Plasma 7(L) 8 - 23 mg/dL 03/26/2024 4:34 AM EDT [facility] Creatinine, Plasma 0.57(L) 0.80 - 1.30 mg/dL 03/26/2024 4:34 AM EDT [facility] BUN/Creatinine Ratio 12 03/26/2024 4:34 AM EDT [facility] Sodium, Plasma 139 136 - 145 mmol/L 03/26/2024 4:34 AM EDT [facility] Potassium, Plasma 3.2(L) 3.7 - 4.8 mmol/L 03/26/2024 4:34 AM EDT [facility] Chloride, Plasma 107 97 - 107 mmol/L 03/26/2024 4:34 AM EDT [facility] CO2, Plasma 22 22 - 29 mmol/L 03/26/2024 4:34 AM EDT [facility] Anion Gap 10 6 - 16 mmol/L 03/26/2024 4:34 AM EDT [facility] Total Calcium, Plasma 8.0(L) 8.9 - 10.2 mg/dL 03/26/2024 4:34 AM EDT [facility] eGFRcr 104.8 mL/min/1.7 3m*2 03/26/2024 4:34 AM EDT [facility] Comment:Reported eGFRcr in m L/min/1.73m2 is based the CKD-EPI 2020 equation that does not use a race coefficient. Blood Venous blood specimen / Unknown Venipuncture / Unknown 03/26/2024 3:53 AM EDT 03/26/2024 4:05 AM EDT us Jeremy Cazares MD LAB BLOOD ORDERABLES Final Res ult [facility] [address] [place] [address] * (ABNORMAL) CBC W/O Differential (03/26/2024 3:53 AM EDT) WBC Count 20.00(H) 3.70 - 10.30 10*3/uL LAB HEMATOLOGY METHOD 03/26/2024 4:18 AM EDT [facility] RBC Count 4.03(L) 4.60 - 6.10 10*6/uL LAB HEMATOLOGY METHOD 03/26/2024 4:18 AM EDT [facility] HGB 8.7(L) 13.7 - 17.5 g/dL LAB HEMATOLOGY METHOD 03/26/2024 4:18 AM EDT [facility] HCT 29.1(L) 40.0 - 51.0 % LAB HEMATOLOGY METHOD 03/26/2024 4:18 AM EDT [facility] Platelet Count 310 155 - 369 10*3/uL LAB HEMATOLOGY METHOD 03/26/2024 4:18 AM EDT [facility] MCV 72(L) 79 - 98 fL LAB HEMATOLOGY METHOD 03/26/2024 4:18 AM EDT [facility] MCH 21.6(L) 26.0 - 32.0 pg LAB HEMATOLOGY METHOD 03/26/2024 4:18 AM EDT [facility] MCHC 29.9(L) 30.7 - 35.5 g/dL LAB HEMATOLOGY METHOD 03/26/2024 4:18 AM EDT [facility] RDW 17.2(H) 11.5 - 14.5 % LAB HEMATOLOGY METHOD 03/26/2024 4:18 AM EDT [facility] MPV 8.6(L) 8.8 - 12.5 fL LAB HEMATOLOGY METHOD 03/26/2024 4:18 AM EDT [facility] nRBC 0.0 <=0.0 per 100 WBCs LAB HEMATOLOGY METHOD 03/26/2024 4:18 AM EDT [facility] Blood Venous blood specimen / Unknown Venipuncture / Unknown 03/26/2024 3:53 AM EDT 03/26/2024 4:05 AM EDT us Jeremy Cazares MD LAB BLOOD ORDERABLES Final Res ult Performing Organization Address City/[facility] Co de Phone Number [facility] [address] [place] [address] * Phosphorus (03/25/2024 6:37 AM EDT) Phosphorus, Plasma 2.8 2.5 - 4.5 mg/dL 03/25/2024 7:12 AM EDT [facility] Blood Venous blood specimen / Unknown Venipuncture / Unknown 03/25/2024 6:37 AM EDT 03/25/2024 6:43 AM EDT us Jeremy Cazares MD LAB BLOOD ORDERABLES Final Res ult [facility] [address] [place] [address] * (ABNORMAL) Magnesium (03/25/2024 6:37 AM EDT) Magnesium, Plasma 1.5(L) 1.9 - 2.4 mg/dL 03/25/2024 7:12 AM EDT [facility] Blood Venous blood specimen / Unknown Venipuncture / Unknown 03/25/2024 6:37 AM EDT 03/25/2024 6:43 AM EDT us Jeremy Cazares MD LAB BLOOD ORDERABLES Final Res ult [facility] [address] [place] [address] * (ABNORMAL) Basic metabolic panel (03/25/2024 6:37 AM EDT) Pathologist [facility] Glucose, Plasma 127(H) 74 - 99 mg/dL 03/25/2024 7:12 AM EDT [facility] BUN, Plasma 4(L) 8 - 23 mg/dL 03/25/2024 7:12 AM EDT [facility] Creatinine, Plasma 0.51(L) 0.80 - 1.30 mg/dL 03/25/2024 7:12 AM EDT [facility] BUN/Creatinine Ratio 8 03/25/2024 7:12 AM EDT [facility] Sodium, Plasma 139 136 - 145 mmol/L 03/25/2024 7:12 AM EDT [facility] Potassium, Plasma 3.6(L) 3.7 - 4.8 mmol/L 03/25/2024 7:12 AM EDT [facility] Chloride, Plasma 106 97 - 107 mmol/L 03/25/2024 7:12 AM EDT [facility] CO2, Plasma 23 22 - 29 mmol/L 03/25/2024 7:12 AM EDT [facility] Anion Gap 10 6 - 16 mmol/L 03/25/2024 7:12 AM EDT [facility] Total Calcium, Plasma 8.4(L) 8.9 - 10.2 mg/dL 03/25/2024 7:12 AM EDT [facility] eGFRcr 108.4 mL/min/1.7 3m*2 03/25/2024 7:12 AM EDT [facility] Comment:Reported eGFRcr in m L/min/1.73m2 is based the CKD-EPI 2020 equation that does not use a race coefficient. Blood Venous blood specimen / Unknown Venipuncture / Unknown 03/25/2024 6:37 AM EDT 03/25/2024 6:43 AM EDT us Jeremy Cazares MD LAB BLOOD ORDERABLES Final Res ult [facility] [address] [place] [address] * (ABNORMAL) CBC W/O Differential (03/25/2024 6:37 AM EDT) WBC Count 18.04(H) 3.70 - 10.30 10*3/uL LAB HEMATOLOGY METHOD 03/25/2024 6:50 AM EDT [facility] RBC Count 4.18(L) 4.60 - 6.10 10*6/uL LAB HEMATOLOGY METHOD 03/25/2024 6:50 AM EDT [facility] HGB 9.2(L) 13.7 - 17.5 g/dL LAB HEMATOLOGY METHOD 03/25/2024 6:50 AM EDT [facility] HCT 29.9(L) 40.0 - 51.0 % LAB HEMATOLOGY METHOD 03/25/2024 6:50 AM EDT [facility] Platelet Count 297 155 - 369 10*3/uL LAB HEMATOLOGY METHOD 03/25/2024 6:50 AM EDT [facility] MCV 72(L) 79 - 98 fL LAB HEMATOLOGY METHOD 03/25/2024 6:50 AM EDT [facility] MCH 22.0(L) 26.0 - 32.0 pg LAB HEMATOLOGY METHOD 03/25/2024 6:50 AM EDT [facility] MCHC 30.8 30.7 - 35.5 g/dL LAB HEMATOLOGY METHOD 03/25/2024 6:50 AM EDT [facility] RDW 17.2(H) 11.5 - 14.5 % LAB HEMATOLOGY METHOD 03/25/2024 6:50 AM EDT [facility] MPV 8.7(L) 8.8 - 12.5 fL LAB HEMATOLOGY METHOD 03/25/2024 6:50 AM EDT [facility] nRBC 0.0 <=0.0 per 100 WBCs LAB HEMATOLOGY METHOD 03/25/2024 6:50 AM EDT [facility] Blood Venous blood specimen / Unknown Venipuncture / Unknown 03/25/2024 6:37 AM EDT 03/25/2024 6:43 AM EDT us Jeremy Cazares MD LAB BLOOD ORDERABLES Final Res ult [facility] [address] [place] [address] * Difficult Crossmatch, Pathologist Interpretation (03/23/2024 4:49 [...] The identified antibody was present at the [place] phase of testing and has a specificity [...] ORDERABL ES Final Result Performing Organization Address [facility] de Phone Number BLOOD BANK [address] [place] [address], * Antibody Identification (03/23/2024 4:49 AM EDT) Pathologist [facility] Antibody ID Non-specif ic Kaylen 03/23/2024 6:36 AM EDT BLOOD BANK Blood Venous blood specimen / Unknown Venipuncture / Unknown 03/23/2024 4:49 AM EDT 03/23/2024 4:55 AM EDT Caron Gordon MD LAB BLOOD BANK TEST ORDERABL ES Final Result Performing Organization Address [facility] de Phone Number BLOOD [address] * (ABNORMAL) APTT (03/23/2024 4:49 AM EDT) Pathologist [facility] aPTT 43(H) 25 - 35 sec 03/23/2024 5:08 AM EDT [facility] Blood Venous blood specimen / Unknown Venipuncture / Unknown 03/23/2024 4:49 AM EDT 03/23/2024 4:54 AM EDT Caron Gordon MD LAB BLOOD ORDERABLES Final R esult Performing Organization Address City/[facility] de Phone Number [facility] [address] [place] [address] * (ABNORMAL) PT-INR (03/23/2024 4:49 AM EDT) Prothrombin Time 15.5(H) 12.0 - 14.3 sec 03/23/2024 5:07 AM EDT [facility] INR 1.3(H) 0.9 - 1.1 03/23/2024 5:07 AM EDT [facility] Blood Venous blood specimen / Unknown Venipuncture / Unknown 03/23/2024 4:49 AM EDT 03/23/2024 4:54 AM EDT Narrative [facility] - 03/23/2024 5:07 AM EDT OPTIMAL INR RANGES FOR PATIENT ON ORAL ANTICOAGULANT THERAPY Prevention of venous thromboembolism ?INR 2.0 to 3.0 In patients with heart disease: Atrial fibrillation ?INR 2.0 to 3.0 Valvular heart disease ? INR 2.0 to 3.0 Tissue heart valves ?INR 2.0 to 3.0 Mechanical prosthetic valves ? INR 2.5 to 3.5 Prevention of recurrent IN ? INR 2.5 to 3.5 us Caron Gordon MD LAB BLOOD ORDERABLES Final R esult Performing Organization Address City/[facility]/ZIP Co de Phone Number [facility] [address] [place] [address] * (ABNORMAL) Type and screen (03/23/2024 4:49 [...] ORDERABL ES Final Result Performing Organization Address [facility]/ZIP Co de Phone Number BLOOD BANK [address] [place] [address] * (ABNORMAL) Blood gas panel, venous (03/23/2024 4:49 AM EDT) [facility] pH, Venous 7.50(H) 7.32 - 7.43 LAB HEMATOLOGY METHOD 03/23/2024 4:55 AM EDT [facility] pCO2, Venous 36(L) 40 - 55 mmHg LAB HEMATOLOGY METHOD 03/23/2024 4:55 AM EDT [facility] pO2, Venous 36 25 - 40 mmHg LAB HEMATOLOGY METHOD 03/23/2024 4:55 AM EDT [facility] SO2, Measured, Venous 71 65 - 80 % LAB HEMATOLOGY METHOD 03/23/2024 4:55 AM EDT [facility] Base Excess, Venous 4.0(H) -2.0 - 3.0 mmol/L LAB HEMATOLOGY METHOD 03/23/2024 4:55 AM EDT [facility] Bicarbonate, Calculated, Venous 27(H) 22 - 26 mmol/L LAB HEMATOLOGY METHOD 03/23/2024 4:55 AM EDT [facility] Hematocrit, Whole Blood 25.6(L) 40.0 - 51.0 % LAB HEMATOLOGY METHOD 03/23/2024 4:55 AM EDT [facility] Sodium, Whole Blood 140 136 - 145 mmol/L LAB HEMATOLOGY METHOD 03/23/2024 4:55 AM T [facility] Potassium, Whole Blood 3.7 3.6 - 4.9 mmol/L LAB HEMATOLOGY METHOD 03/23/2024 4:55 AM EDT [facility] Chloride, Whole Blood 103 97 - 107 mmol/L LAB HEMATOLOGY METHOD 03/23/2024 4:55 AM T [facility] Glucose, Whole Blood 111(H) 74 - 99 mg/dL LAB HEMATOLOGY METHOD 03/23/2024 4:55 AM EDT [facility] Lactate, Venous, Whole Blood 1.4 0.5 - 2.2 mmol/L LAB HEMATOLOGY METHOD 03/23/2024 4:55 AM [facility] Ionized Calcium, Whole Blood 4.7 4.6 - 5.1 mg/dL LAB HEMATOLOGY METHOD 03/23/2024 4:[facility] Blood Venous blood specimen / Unknown Venipuncture / Unknown 03/23/2024 4:49 AM EDT 03/23/2024 4:53 AM EDT Caron Gordon MD LAB BLOOD ORDERABLES Final R esult [facility] [address] [place] [address] * (ABNORMAL) CMP (03/23/2024 4:49 AM EDT) Glucose, Plasma 111(H) 74 - 99 mg/dL 03/23/2024 5:34 AM EDT [facility] BUN, Plasma 7(L) 8 - 23 mg/dL 03/23/2024 5:34 AM EDT [facility] Creatinine, Plasma 0.58(L) 0.80 - 1.30 mg/dL 03/23/2024 5:34 AM EDT [facility] BUN/Creatinine Ratio 12 03/23/2024 5:34 AM EDT [facility] Sodium, Plasma 139 136 - 145 mmol/L 03/23/2024 5:34 AM EDT [facility] Potassium, Plasma 3.8 3.7 - 4.8 mmol/L 03/23/2024 5:34 AM EDT [facility] Chloride, Plasma 105 97 - 107 mmol/L 03/23/2024 5:34 AM EDT [facility] CO2, Plasma 23 22 - 29 mmol/L 03/23/2024 5:34 AM EDT [facility] Anion Gap 11 6 - 16 mmol/L 03/23/2024 5:34 AM EDT [facility] Total Calcium, Plasma 8.6(L) 8.9 - 10.2 mg/dL 03/23/2024 5:34 AM EDT [facility] Total Protein 6.1(L) 6.3 - 7.9 g/dL 03/23/2024 5:34 AM EDT [facility] Albumin, Plasma 2.9(L) 3.5 - 5.2 g/dL 03/23/2024 5:34 AM EDT [facility] AST, Plasma 17 10 - 50 U/L 03/23/2024 5:34 AM EDT [facility] ALT, Plasma 9(L) 10 - 50 U/L 03/23/2024 5:34 AM EDT [facility] Alkaline Phosphatase, Plasma 235(H) 40 - 115 U/L 03/23/2024 5:34 AM EDT [facility] Total Bilirubin, Plasma 0.7 0.2 - 1.1 mg/dL 03/23/2024 5:34 AM EDT [facility] eGFRcr 104.3 mL/min/1.7 3m*2 03/23/2024 5:34 AM EDT [facility] Comment:Reported eGFRcr in m L/min/1.73m2 is based the CKD-EPI 2020 equation that does not use a race coefficient. Blood Venous blood specimen / Unknown Venipuncture / Unknown 03/23/2024 4:49 AM EDT 03/23/2024 5:06 AM EDT us Caron Gordon MD LAB BLOOD ORDERABLES Final R esult [facility] [address] [place] [id number] * (ABNORMAL) CBC w/diff (03/23/2024 4:49 AM EDT) WBC Count 15.97(H) 3.70 - 10.30 10*3/uL LAB HEMATOLOGY METHOD 03/23/2024 4:56 AM EDT [facility] RBC Count 3.84(L) 4.60 - 6.10 10*6/uL LAB HEMATOLOGY METHOD 03/23/2024 4:56 AM EDT [facility] HGB 8.4(L) 13.7 - 17.5 g/dL LAB HEMATOLOGY METHOD 03/23/2024 4:56 AM EDT [facility] HCT 27.1(L) 40.0 - 51.0 % LAB HEMATOLOGY METHOD 03/23/2024 4:56 AM EDT [facility] Platelet Count 299 155 - 369 10*3/uL LAB HEMATOLOGY METHOD 03/23/2024 4:56 AM EDT [facility] MCV 71(L) 79 - 98 fL LAB HEMATOLOGY METHOD 03/23/2024 4:56 AM EDT [facility] MCH 21.9(L) 26.0 - 32.0 pg LAB HEMATOLOGY METHOD 03/23/2024 4:56 AM EDT [facility] MCHC 31.0 30.7 - 35.5 g/dL LAB HEMATOLOGY METHOD 03/23/2024 4:56 AM EDT [facility] RDW 16.8(H) 11.5 - 14.5 % LAB HEMATOLOGY METHOD 03/23/2024 4:56 AM EDT [facility] MPV 8.6(L) 8.8 - 12.5 fL LAB HEMATOLOGY METHOD 03/23/2024 4:56 AM EDT [facility] nRBC 0.0 <=0.0 per 100 WBCs LAB HEMATOLOGY METHOD 03/23/2024 4:56 AM EDT [facility] Differential Type Automated LAB HEMATOLOGY METHOD 03/23/2024 4:56 AM EDT [facility] Neutrophils % 89.0 % LAB HEMATOLOGY METHOD 03/23/2024 4:56 AM EDT [facility] Lymphocytes % 5.0 % LAB HEMATOLOGY METHOD 03/23/2024 4:56 AM EDT [facility] Monocytes % 5.0 % LAB HEMATOLOGY METHOD 03/23/2024 4:56 AM EDT [facility] Eosinophils % 0.0 % LAB HEMATOLOGY METHOD 03/23/2024 4:56 AM EDT [facility] Basophils % 0.0 % LAB HEMATOLOGY METHOD 03/23/2024 4:56 AM EDT [facility] Immature Granulocytes % 1.0 % LAB HEMATOLOGY METHOD 03/23/2024 4:56 AM EDT [facility] Neutrophils Absolute 14.11(H) 1.60 - 6.10 10*3/uL LAB HEMATOLOGY METHOD 03/23/2024 4:56 AM EDT [facility] Lymphocytes Absolute 0.86(L) 1.20 - 3.90 10*3/uL LAB HEMATOLOGY METHOD 03/23/2024 4:56 AM EDT [facility] Monocytes Absolute 0.86 0.30 - 0.90 10*3/uL LAB HEMATOLOGY METHOD 03/23/2024 4:56 AM EDT [facility] Eosinophils Absolute 0.00 0.00 - 0.50 10*3/uL LAB HEMATOLOGY METHOD 03/23/2024 4:56 AM EDT [facility] Basophils Absolute 0.03 0.00 - 0.10 10*3/uL LAB HEMATOLOGY METHOD 03/23/2024 4:56 AM EDT [facility] Immature Granulocytes Absolute 0.11(H) 0.00 - 0.06 10*3/uL LAB HEMATOLOGY METHOD 03/23/2024 4:56 AM EDT [facility] Blood Venous blood specimen / Unknown Venipuncture / Unknown 03/23/2024 4:49 AM EDT 03/23/2024 4:53 AM EDT Narrative [facility] - 03/23/2024 4:56 AM EDT Therapeutic decision making should be based on absolute values, rather than percentages. us Caron Gordon MD LAB BLOOD ORDERABLES Final R esult [facility] [address] [place] [address] documented in this encounter Visit Diagnoses Diagnosis Rectal cancer (CMS/HCC)- Primary Malignant neoplasm of rectum Rectal cancer (CMS/HCC) Malignant neoplasm of rectum Rectal cancer (CMS/HCC) Malignant neoplasm of rectum documented in this encounter Admitting Diagnoses Diagnosis Rectal cancer (CMS/HCC) Malignant neoplasm of rectum documented in this encounter Administered Medications Inactive Administered Medications - up to 3 most recent administrations Medication Order MAR Action Action Date Dose Rate Site acetaminophen (Tylenol) tablet 1,000 mg 1,000 mg, [...] Given 04/11/2024 10:06 AM EDT 25 mg hydrALAZINE (Apresoline) injection 10 mg 10 mg, Intravenous, Every 4 hours PRN, Starting on Thu03/31/24 at 1209, Until Thu04/12/24 at 1941, Routine, SBP>180 Given 04/11/2024 11:49 PM EDT 10 mg Given 04/08/2024 11:17 PM EDT 10 mg Given 04/04/2024 6:20 AM EDT 10 mg labetalol (Normodyne,Trandate) injection 20 mg 20 mg, Intravenous, Every 4 hours PRN, Starting on Thu03/30/24 at 1846, Until Thu04/12/24 at 1941, Routine, high blood pressure, SBP > 160 sustained. Hold for HR <60 Given 04/05/2024 10:19 AM EDT 20 mg Given 04/04/2024 9:58 AM EDT 20 mg Given 04/03/2024 12:56 PM EDT 20 mg lisinopril tablet 40 mg 40 mg, Oral, Daily, First dose (after last modification) on Thu04/12/24 at 0900, Until Discontinued, Routine Given 04/12/2024 8:53 AM EDT 40 mg methocarbamol (Robaxin) tablet 500 mg 500 mg, Oral, 4 times daily PRN, Starting on Thu04/06/24 at 1400, Until Thu04/12/24 at 1941, Routine, muscle spasms, use second for pain pantoprazole (Protonix) EC tablet 40 mg 40 mg, Oral, Daily, First dose on Thu04/01/24 at 0900, Until Discontinued, Routine Given 04/12/2024 8:53 AM EDT 40 mg Given 04/11/2024 10:06 AM EDT 40 mg Given 04/10/2024 8:33 AM EDT 40 mg rivaroxaban (Xarelto) tablet 10 mg 10 mg, [...] Until Thu04/12/24 at 1941, Routine, line care tamsulosin (Flomax) 24 hr capsule 0.8 mg [...] Given 04/10/2024 8:42 AM EDT 300 mg documented in this encounter Active and Recently [...] Discontinued, Routine 0834 (Given - Provider: Dian Benoit)2144 (Given - Provider: Chen Kurtz RN) 1006 (Given - Provider: Caron Barrera RN)202 (Given - Provider: Tarah Barton) 0853 (Given [...] Dian Benoit) 1804 (Given - Provider: Caron Barrera RN) 1800 (Canceled Entry - Provider: Automatic Discharge [...] 0853 (Given - Provider: Caron Barrera RN) theophylline ER (Ananda-Dur) 12 hr tablet 300 mg 300 mg, Oral, Daily, First dose on Thu03/25/24 at 0900, Until Discontinued, Routine 0842 (Given - Provider: Dian Benoit) 1005 (Given - Provider: Caron Barrera RN) 1035 (Given - Provider: Caron Barrera RN) [...] Rehana 03/31/24 at 1209, Until Thu04/12/24 at 1941, Routine, SBP>180 2349 (Given - Provider: Betty [...] Until Thu04/12/24 at 1941, Routine, line care Linked Groups Order Group [...] Until Thu04/12/24 at 1941, Routine, line care documented in this encounter Additional Health Concerns Infection Onset Date Last Indicated Resolved Time C. difficile Rule-Out 03/27/2024 03/27/20242023 1:10 PM EDT MRSA 03/28/2024 03/28/2024 Assessment Noted Time A Body Mass Index follow-up plan has been documented for the patient 04/12/2024 2:33 PM EDT documented as of this encounter Care Teams Early Childhood Services Coordinator Relationship Specialty Start Date End Date Pcp, No [address] [place] [address] PCP - General Family Medicine 03/23/24 documented as of this encounter
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
--- OUTSIDE RECORDS SUMMARY | 2024-09-30 12:52 | XMS_ITS | Encounter Summary ---
Author Organization Healthcare Address [address] [place] [address] Care Team Providers Care Child And Adolescent Therapist Name Role Phone Pcp, No Primary Care Provider Unavailabl e Reason for Visit * Auth/Cert (Routine) Specialty Diagnoses / Procedures Referred By Contac t Referred To Contact Diagnoses Rectal cancer (CMS/HCC) Dysuria, rectal mass Jeremy Cazares MD [address] [facility] [address] [place] [address] Phone: tel: fax: [facility] [address] [place] [address] Phone: tel: Referral ID Status Reason Start Date Expiration Date Visits Re quested Visits Authorized [id number] 1 1 Encounter Details Date Type Department Care Team (Late st Contact Info) Description 03/30/2024 1:52 PM EDT Anesthesia Event [facility] [address] [place] [address] Chauncey Meza DO [address] [place] [address] Donte Wood MD [address] [place] [address] Anesthesia Record Procedure Summary Procedure Name Responsible Anesthesiologist Anesthesia Start Time Anesthesia Stop Time CREATION, COLOSTOMY, OPEN, FLEXIBLE SIGMOIDOSCOPY (Abdomen) Chauncey Meza DO 03/30/24 1352 03/30/24 1543 Events Date Time Event Comment 03/30/2024 1352 An Start 1352 An Start Data 1352 In Room 1359 An Induction The patient was reevaluated immediately before moderate or deep sedation use and before anesthesia induction. 1400 An Intubation 1406 Anesthesia Ready 1417 Proc Start 1519 Proc Fin 1523 An Extubation 1530 an stop data 1535 Out of Room 1540 Handoff to Receiving I compl eted my handoff to the receiving clinician during which we: 1. Identified the patient 2. Identified the responsible provider 3. Reviewed the pertinent medical history 4. Discussed the surgical course 5. Reviewed intra-op anesthesia management and issues during anesthesia 6. Set expectations for post-procedure period 7. Allowed opportunity for questions and acknowledgement of understanding. 1543 An Stop Meds Name Total fentaNYL (Sublimaze) injection 50 mcg/mL 100 mcg lidocaine PF (Xylocaine-MPF) 2% 20 mg propofol (Diprivan) injection 10 mg/mL 1 20 mg rocuronium (ZeMuron) injection 10 mg/mL 50 mg dexamethasone (Decadron) injection 4 mg/ mL 4 mg phenylephrine (Ha-Synephrine) prefilled syringe 1 mg/10 mL 100 mcg ondansetron (Zofran) injection 2 mg/mL 4 mg sugammadex (Bridion) injection 100 mg/mL 200 mg 0.25% ropivacaine 60 mL cefOXitin (Mefoxin) vial 2 g 2 g heparin (porcine) injection 5,000 Units 5,000 Units lactated Ringer's infusion 900 mL * Agents Name O2 N2O Air Sevoflurane Isoflurane Desflurane Inspired Desflurane Inspired Isoflurane Inspired Sevoflurane N2O Inspired N2O * Blood No blood administrations on file. Lines, Drains, and Airways Type Details Placement Removal Wound 03/30/24; 1439; N; Y es; Incision; Abdomen; Lower, Mid, Upper 03/30/24 1439 by Anjali Otero RN Colostomy 03/30/24; 1518; RUQ 03/30/24 151 8 by Anjali Otero RN Wound 03/30/24; 1519; Incision; Umbilicus; Anterior 03/30/24 1519 by Anjali Otero RN Urethral Catheter Placement Date: 03/23/24; Placement Time: 0000; Existing LDA Placed by: Outside Facility; Balloon Size: 10 mL; Removal Date: 04/29/24; Removal Time: 191003/23/24 0000 by Terri Lamar RN 04/29/24 191 by Caron Flores RN Peripheral IV Placement Date: 03/23/24; Placement Time: 06; Catheter Size: 20 G; Orientation: Anterior, Left; Location: Forearm; Inserted by: Boris Lamar RN; Insertion Attempts: 1; Removal Date: 04/04/24; Removal Time: 1000; Removal Reason: Infiltrated 03/23/24 0628 by Terri Lamar RN 04/04/24 1000 by Leonel Ely RN Peripheral IV Placement Date: 03/26/24; Placement Time: 1200; Catheter Size: 20 G; Orientation: Anterior, Right; Location: Forearm; Removal Date: 04/03/24; Removal Time: 09; Removal Reason: Infiltrated 03/26/24 1200 by Yahaira Loya RN 04/03/24 0938 by Leonel Ely RN ETT Placement Date: 03/30/24; Placement Time: 1400 (created via procedure documentation); Mask Ventilation: 1; Technique: Direct laryngoscopy; Type: ETT - single; Single Lumen Tube Size: 7.5 mm; Cuffed: Yes; Laryngoscope: Torsten; Blade Size: 3; Location: Oral; Grade View: Grade I; Insertion Attempts: 1; Placement Verification: Auscultation, Capnometry; Airway Comments: Atraumatic. No change to dentition. ; Placed by: YUNIER; Removal Date: 03/30/24; Removal Time: 15203/30/24 1400 by Kevin Love CRNA 03/30/24 1523 by Kevin Love CRNA Peripheral IV Placement Date: 03/30/24; Placement Time: 140; Catheter Size: 16 G; Orientation: Right; Location: Wrist; Site Prep: Alcohol; Insertion Attempts: 2; Removal Date: 04/01/24; Removal Time: 1400; Removal Reason: Leaking 03/30/24 1401 by Kevin Love CRNA 04/01/24 1400 by Marian Moody RN documented in this encounter Social History Tobacco [...] place to sleep or slept in a snf (including now)? 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 0 03/23/2024 CAGE Questionnaire Score 0 024 Utilities Answer Date Recorded In the past 12 months has th [employer], gas, oil, or water [employer] threatened to shut off services in your home? No 03/23/2024 Sex and Gender Information Value Date Recorded Sex Assigned at Male 03/23/2024 4:56 AM EDT Legal Sex Male 7:19 PM EDT Gender Identity Male 03/23/2024 4:56 AM EDT Sexual Orientation Not on file documented as of this encounter Miscellaneous Notes * Anesthesia Postprocedure Evaluation - Kevin Love CRNA - 03/30/2024 3:40 PM EDT Patient: Sae Johnson Anesthesia Type: general Vitals Value Taken Time BP 167/73 03/30/24 1540 Temp 36.6 03/30/24 1543 Pulse 64 03/30/24 1542 Resp 19 03/30/24 1542 SpO2 97 % 03/30/24 1542 Vitals shown include unfiled device data. Anesthesia Post Evaluation Patient location during evaluation: PACU Patient participation: complete - patient participated Level of consciousness: awake and baseline Pain management: adequate (pain score 0-3) Airway patency: natural airway Cardiovascular status: acceptable Respiratory status: acceptable, nonlabored ventilation, face mask, spontaneous ventilation and unassisted Hydration status: acceptable No notable events documented. * Anesthesia Procedure Notes - Kevin Love CRNA - 03/30/2024 2:28 PM EDT Associated Order(s): Airway Airway Date/Time: 03/30/2024 2:00 PM Urgency: elective Airway not difficult General Information and Staff Patient location during procedure: OR ELEMENTARY SCHOOL REGISTRAR: Kevin Love CRNA Performed: ELEMENTARY SCHOOL REGISTRAR Indications and Patient Condition Indications for airway management: anesthesia Spontaneous Ventilation: absent Preoxygenated: yes Patient position: sniffing Mask difficulty assessment: 1 - vent by mask Final Airway Details Final airway type: endotracheal airway Successful airway: ETT Cuffed: yes Successful intubation technique: direct laryngoscopy Facilitating devices/methods: intubating stylet Endotracheal tube insertion site: oral Blade: Torsten Blade size: #3 ETT size (mm): 7.5 Cormack-Lehane Classification: grade I - full view of glottis Placement verified by: chest auscultation and capnometry Measured from: teeth ETT to teeth (cm): 22 Number of attempts at approach: 1 Number of other approaches attempted: 0 Additional Comments Atraumatic. No change to dentition. * Anesthesia Procedure Notes - Adolfo Boateng MD - 03/30/2024 2:16 PM EDT Associated Order(s): Peripheral Block Peripheral Block Patient location during procedure: OR Start time: 03/30/2024 2:10 PM End time: 03/30/2024 2:15 PM Reason for block: post-op pain management Block is at surgeon's request Staffing Performed: Resident Anesthesiologist: Shilpi Lira MD Resident: Adolfo Boateng MD Preanesthetic Checklist Completed: patient identified, IV checked, site marked, risks and benefits discussed, surgical consent, monitors and equipment checked, pre-op evaluation and timeout performed Peripheral Block Patient position: supine Prep: ChloraPrep Patient monitoring: continuous pulse ox, heart rate and gi asst Block type: TAP Laterality: right and left Injection technique: single-shot Guidance: ultrasound guided Ultrasound used for needle placement AND ultrasound image retained Needle Needle localization: anatomical landmarks and ultrasound guidance Medications Administered 0.25% ropivacaine - Injection 60 mL - 03/30/2024 2:10:00 PM Assessment Injection assessment: negative aspiration for heme, local visualized surrounding nerve on ultrasound and incremental injection Heart rate change: no Slow fractionated injection: yes Additional Notes Under ultrasound guidance, the external oblique, internal oblique, transversus abdominis, and peritoneal cavity were identified. The transversus abdominis plane was located under direct ultrasound guidance using a small aliquot to confirm proper placement. Aspiration was negative for heme. 30 mL of0.25% ropivacaine was incrementally injected into the transversus abdominis plane. The same procedure was performed on the contralateral side. A total of 60 mL of 0.25% ropivacaine was given. Cosigned by Shilpi Lira MD at 03/31/2024 6:24 AM EDT Associated attestation - Shilpi Lira MD - 03/31/2024 6:24 AM EDT I was present during all critical and morse portions of the procedure(s) and immediately available [facility] services the entire duration. See resident note for details. * Anesthesia Preprocedure Evaluation - Chauncey Meza DO - 03/29/2024 7:03 AM EDT Images from the original note were not included. Patient: Sae Johnson Procedure Information Date/Time: 03/30/24 1140 Procedure: CREATION, COLOSTOMY, LAPAROSCOPIC, FLEXIBLE SIGMOIDOSCOPY Location: [facility] OR Surgeons: Jeremy Cazares MD HPI Sae Johnson is a 73 y.o. 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 NPO STATUS Activity Level/METS Relevant Problems GI (+) Rectal cancer (CMS/HCC) SOCIAL HX Social History Tobacco Use Smoking Status Former Smokeless Tobacco Not on file Tobacco Comments Former smoker, [id number] 1.5 ppd Social History Substance and Sexual Activity Alcohol Use Never Social History Substance and Sexual Activity Drug Use Never SURGICAL HX Past Surgical History: Procedure Laterality Date CHOLECYSTECTOMY N/A Cholecystectomy from [facility] ALL[facility]GIES No Known Allergies MEDICATIONS Scheduled acetaminophen, 1,000 mg, Oral, q6h CAROLYN allopurinol, 300 mg, Oral, Daily heparin (porcine), 5,000 Units, Subcutaneous, q8h CAROLYN micafungin, 100 mg, Intravenous, q24h pantoprazole, 40 mg, Intravenous, Daily piperacillin-tazobactam, 4.5 g, Intravenous, q6h [COMPLETED] Insert peripheral IV, , , Once AND [COMPLETED] Saline lock IV, , , Once AND sodium chloride, 10 mL, Intravenous, q12h AND sodium chloride, 10 mL, Intravenous, PRN tamsulosin, 0.8 mg, Oral, Daily theophylline ER, 300 mg, Oral, Daily vancomycin, 1,000 mg, Intravenous, q18h LABS Labs in last 18 hours CBC WBC ?? Hb ?? Plt ?? Hct ?? ANC ?? INR ??, PTT ??, Anti-Xa ?? BMP Na ?? Cl ?? BUN ?? Glu ?? K ?? Co2 ?? Cr ?? Ca ?? iCa ?? Mg ??, Phos ?? Lactate ?? LFT AST ?? AlkPhos ?? T Prot ?? ALK ?? Bili ?? Alb ?? D.Bili ?? EKG, ECHO, Cath, Imaging, PFTs EKG ECHO No echocardiogram results found for the past 12 months CXR 03/28 Lungs are clear. Heart and mediastinal contours are within normal limits. No pneumothorax. Bilateral pleural effusions are better seen on CT chest from the prior date. Bony structures are unremarkable. PFTs Pulmonary Functions Testing Results: No results found for: TSO7BRI , [id number] , YPZ1TRP , FVCPRED Body mass index is 21.09 kg/m??. Vitals: 03/29/24 0315 BP: Pulse: 79 Resp: 16 Temp: SpO2: 92% Anesthesia Evaluation Physical Exam Airway Mallampati: I Mouth opening: normal TM distance: >3 FB Neck ROM: full Cardiovascular - normal exam Dental Pulmonary - normal exam Neurological Skin Musculoskeletal Extremities Anesthesia Plan ASA 3 Plan was reviewed with: ELEMENTARY SCHOOL REGISTRAR Anesthesia technique(s) discussed with the patient/family: general Anesthesia plan agreed upon was: general Anesthetic plan and risks discussed with patient. Use of blood products discussed with patient who. Additional Equipment Requests documented in this encounter Plan of Treatment Not on file documented as of this encounter Procedures Procedure Name Priority Date/Time Associated Diagnosis Comments PB POINT OF CARE IMAGING PLACEHOLDER Routine 03/30/2024 2:10 PM EDT PB ANESTHESIA PLACEHOLDER Routine 03/30/2024 2:00 PM EDT SD AN ELECTIVE ENDOTRACHEAL AIRWAY Routine 03/30/2024 2:00 PM EDT documented in this encounter Results * PB POINT OF CARE IMAGING PLACEHOLDER (03/30/2024 2:10 PM EDT) Narrative Shilpi Lira MD - 03/30/2024 2:10 PM EDT Adolfo Boateng MD ? 03/30/2024 ??2:17 PM Peripheral Block Patient location during procedure: OR Start time: 03/30/2024 2:10 PM End time: 03/30/2024 2:15 PM Reason for block: post-op pain management Block is at surgeon's request Staffing Performed: Resident Anesthesiologist: Shilpi Lira MD Resident: Adolfo Boateng MD Preanesthetic Checklist Completed: patient identified, IV checked, site marked, risks and benefits discussed, surgical consent, monitors and equipment checked, pre-op evaluation and timeout performed Peripheral Block Patient position: supine Prep: ChloraPrep Patient monitoring: continuous pulse ox, heart rate and gi asst Block type: TAP Laterality: right and left Injection technique: single-shot Guidance: ultrasound guided Ultrasound used for needle placement AND ultrasound image retained Needle Needle localization: anatomical landmarks and ultrasound guidance Medications Administered 0.25% ropivacaine - Injection 60 mL - 03/30/2024 2:10:00 PM Assessment Injection assessment: negative aspiration for heme, local visualized surrounding nerve on ultrasound and incremental injection Heart rate change: no Slow fractionated injection: yes Additional Notes Under ultrasound guidance, the external oblique, internal oblique, transversus abdominis, and peritoneal cavity were identified. The transversus abdominis plane was located under direct ultrasound guidance using a small aliquot to confirm proper placement. Aspiration was negative for heme. 30 mL of 0.25% ropivacaine was incrementally injected into the transversus abdominis plane. The same procedure was performed on the contralateral side. A total of 60 mL of 0.25% ropivacaine was given. us Chauncey Meza DO ANESTHESIA ORDERABLES Final Res ult * SD AN ELECTIVE ENDOTRACHEAL AIRWAY, PB ANESTHESIA PLACEHOLDER (03/30/2024 2:00 PM EDT) Narrative Kevin Love CRNA - 03/30/2024 2:00 PM EDT Kevin Love CRNA ? 03/30/2024 ??2:30 PM Airway Date/Time: 03/30/2024 2:00 PM Urgency: elective Airway not difficult General Information and Staff Patient location during procedure: OR ELEMENTARY SCHOOL REGISTRAR: Kevin Love CRNA Performed: ELEMENTARY SCHOOL REGISTRAR Indications and Patient Condition Indications for airway management: anesthesia Spontaneous Ventilation: absent Preoxygenated: yes Patient position: sniffing Mask difficulty assessment: 1 - vent by mask Final Airway Details Final airway type: endotracheal airway Successful airway: ETT Cuffed: yes Successful intubation technique: direct laryngoscopy Facilitating devices/methods: intubating stylet Endotracheal tube insertion site: oral Blade: Torsten Blade size: #3 ETT size (mm): 7.5 Cormack-Lehane Classification: grade I - full view of glottis Placement verified by: chest auscultation and capnometry Measured from: teeth ETT to teeth (cm): 22 Number of attempts at approach: 1 Number of other approaches attempted: 0 Additional Comments Atraumatic. No change to dentition. Chauncey Meza DO ANESTHESIA ORDERABLES Final Res ult documented in this encounter Visit Diagnoses Not on filedocumented in this encounter Administered Medications Inactive Administered Medications - up to 3 most recent administrations Medication Order MAR Action Action Date Dose Rate Site cefOXitin (Mefoxin) injection Intravenous, As needed, Starting on Thu03/30/24 at 1418, Until Thu03/30/24 at 1543, Routine, Anesthesia Intraprocedure Given 03/30/2024 2:18 PM EDT 2 g dexamethasone (Decadron) injection Intravenous, As needed, Starting on Thu03/30/24 at 1401, Until Thu03/30/24 at 1543, Routine, Anesthesia Intraprocedure Given 03/30/2024 2:01 PM EDT 4 mg fentaNYL (Sublimaze) injection Intravenous, As needed, Starting on Thu03/30/24 at 1359, Until Thu03/30/24 at 1543, Routine, Anesthesia Intraprocedure Given 03/30/2024 2:34 PM EDT 50 mcg Given 03/30/2024 1:59 PM EDT 50 mcg heparin (porcine) injection 5,000 Units 5,000 Units, Subcutaneous, Every 8 hours scheduled, First dose on Thu03/23/24 at 0615, Until Discontinued, Routine Given 03/31/2024 5:21 AM EDT 5,000 Units Left Upper Arm (Back ) Given 03/30/2024 11:00 PM EDT 5,000 Units Right Upper Arm (Back) Given 03/30/2024 2:30 PM EDT 5,000 Units lactated Ringer's infusion Intravenous, Continuous PRN, Starting on Thu03/30/24 at 1352, Until Thu03/30/24 at 1543, Routine New Bag 03/30/2024 1:52 PM EDT lidocaine PF (Xylocaine) 2 % injection Intravenous, As needed, Starting on Thu03/30/24 at 1359, Until Thu03/30/24 at 1543, Routine, Anesthesia Intraprocedure Given 03/30/2024 1:59 PM EDT 20 mg ondansetron (Zofran) injection Intravenous, As needed, Starting on Thu03/30/24 at 1401, Until Thu03/30/24 at 1543, Routine, Anesthesia Intraprocedure Given 03/30/2024 2:01 PM EDT 4 m g phenylephrine in NS (Ha-Synephrine) 100 mcg/mL prefilled syringe Intravenous, As needed, Starting on Thu03/30/24 at 1459, Until Thu03/30/24 at 1543, Routine, Anesthesia Intraprocedure Given 03/30/2024 2:59 PM EDT 100 mcg propofol (Diprivan) injection Intravenous, As needed, Starting on Thu03/30/24 at 1359, Until Thu03/30/24 at 1543, Routine, Anesthesia Intraprocedure Given 03/30/2024 1:59 PM EDT 120 mg rocuronium (ZeMuron) injection Intravenous, As needed, Starting on Thu03/30/24 at 1359, Until Thu03/30/24 at 1543, Routine, Anesthesia Intraprocedure Given 03/30/2024 1:59 PM EDT 50 mg ropivacaine (Naropin) injection Injection, Once PRN Procedure, Starting on Thu03/30/24 at 1410, Until Thu03/30/24 at 1410, Routine, Anesthesia Intraprocedure Given 03/30/2024 2:10 PM EDT 60 mL sugammadex (Bridion) 200 MG/2ML injection Intravenous, As needed, Starting on Thu03/30/24 at 1521, Until Thu03/30/24 at 1543, Routine, Anesthesia Intraprocedure Given 03/30/2024 3:21 PM EDT 200 mg documented in this encounter Additional Health Concerns Infection Onset Date Last Indicated 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
--- OUTSIDE RECORDS SUMMARY | 2024-09-30 12:52 | XMS_ITS | Encounter Summary ---
Author Organization Healthcare Address [address] [place] [address] Care Team Providers Care Car Repairer Name Role Phone Pcp, No Primary Care Provider Unavailabl e Encounter Details Date Type Department Care Team (Latest Contact Info) Description 03/23/2024 Travel Social History Tobacco Use Types Packs/Day [...] place to sleep or slept in a [facility] (including now)? 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
--- OUTSIDE RECORDS SUMMARY | 2024-09-30 12:52 | XMS_ITS | Encounter Summary ---
Author Organization Healthcare Address [address] [place] [address] Care Team Providers Care Environmental Services Technician Name Role Phone Pcp, No Primary Care Provider Unavailabl e Encounter Details Date Type Department Care Team (Latest Contact Info) Description 03/27/2024 Travel Social History Tobacco Use Types Packs/Day [...] place to sleep or slept in a [facility] (including now)? 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
[2024-09-30] MEDS: LISINOPRIL 20MG TABLET 20 MG PO (12:53)
[2024-09-30] MEDS: 0.9 % SODIUM CHLORIDE 1000ML 1,000 ML 75 ML IV (14:28)
[2024-09-30 14:51] VITALS: BMI 21.1
[2024-09-30 16:00] VITALS: BP 156/70; PULSE 103; RESP 16; TEMP 36.6; O2SAT 97
--- NOTE | 2024-09-30 17:13 | P.PN_ITS ---
Subjective *Date: 10/06/24 *Time: 13:18 Interval history: Patient is doing better today, abdominal pain improved. Pending urine cultures. Exam Data for Last 24 hours Vital signs and Labs for Last 24 Hours: Temp Pulse Resp BP Pulse Ox O2 Del Method 98 F 103 H 16 156/70 H 97 Room Air 09/30/24 16:00 09/30/24 16:00 09/30/24 16:00 09/30/24 16:00 09/30/24 16:00 09/30/24 15:00 Laboratory Results - last 24 hr 09/29/24 17:32: WBC 13.4 H, RBC 4.21 L, Hgb 11.1 L, Hct 33.1 L, MCV 78.7 L, MCH 26.3 L, MCHC 33.4, RDW 15.4, Plt Count 225, MPV 7.9, Neut % (Auto) 84.5 H, Lymph % (Auto) 9.5 L, [place] % (Auto) 5.6, Eos % (Auto) 0.1, Baso % (Auto) 0.2, Neut # (Auto) 11.3 H, Lymph # (Auto) 1.3, [place] # (Auto) 0.8, Eos # (Auto) 0.0, Baso # (Auto) 0.0, Sodium 137, Potassium 4.1, Chloride 102, Carbon Dioxide 18 L, Anion Gap 21.1 H, BUN 20, Creatinine 1.00, Estimated Creat Clear 51, Estimated GFR 74, Est GFR ( Amer) 89, Glucose 146 H, Calcium 9.5, Total Bilirubin 1.0, AST 38, ALT 40, Alkaline Phosphatase 319 H, Total Protein 7.1, Albumin 3.7, Globulin 3.4 H, Albumin/Globulin Ratio 1.1, Lipase 58, HIV 1&2 Antibody Rapid Nonreactive 09/29/24 17:54: Urine Color Yellow, Urine Appearance Clear, Urine pH 5.5, Ur Specific [place] 1.020, Urine Protein 2+ A, Urine Glucose (UA) Negative, Urine Ketones Negative, Urine Blood 3+ A, Urine Nitrate Negative, Urine Bilirubin Negative, Urine Urobilinogen 0.2, Ur Leukocyte Esterase 2+ A, Urine RBC Tntc, Urine WBC 50-100, Ur Squamous Epith Cells 20-50, Urine Bacteria 2+ 09/29/24 17:55: VBG pH 7.35, VBG pCO2 38.3, VBG pO2 31.6, VBG HCO3 20.6 L, VBG Total CO2 21.8 L, VBG O2 Saturation 55.2, VBG Base Excess -5.1 L, VBG Lactic Acid 8.1 H 09/29/24 22:11: Lactate 1.7 09/30/24 05:28: WBC 11.1 H, RBC 3.96 L, Hgb 10.3 L, Hct 30.9 L, MCV 78.1 L, MCH 26.1 L, MCHC 33.4, RDW 15.5, Plt Count 195, MPV 7.6, Neut % (Auto) 88.8 H, Lymph % (Auto) 6.9 L, [place] % (Auto) 4.1, Eos % (Auto) 0.1, Baso % (Auto) 0.1, Neut # (Auto) 9.8 H, Lymph # (Auto) 0.8, [place] # (Auto) 0.5, Eos # (Auto) 0.0, Baso # (Auto) 0.0, Total Counted 100, Neutrophils % (Manual) 86 H, Lymphocytes % (Manual) 11, Monocytes % (Manual) 3, Platelet Estimate Normal, RBC Morphology Normal, Sodium 139, Potassium 3.5, Chloride 108 H, Carbon Dioxide 23, Anion Gap 11.5, BUN 11 D, Creatinine 0.60 L D, Estimated Creat Clear 53, Estimated GFR 133, Est GFR ( Amer) 161 D, Glucose 96 D, Calcium 8.3 L, Magnesium 1.7, Total Bilirubin 0.7, AST 27 D, ALT 19 D, Alkaline Phosphatase 281 H, Total Pro tein 5.7 L, Albumin 2.8 L D, Globulin 2.9, Albumin/Globulin Ratio 1.0 L I & O for Last 24 hours: Intake & Output 09/27/24 09/28/24 09/29/24 09/30/24 23:59 23:59 23:59 23:59 Intake Total 947 / 947 Output Total 750 / 750 Balance -750 / -750 947 / 947 Weight 54.93 kg 54.09 kg Constitutional Constitutional: no acute distress *Routine HEENT Exam Head: Present normocephalic Eye: Present EOMI and PERRL ENT: Present mucous membranes moist *Routine Neck Exam Neck: Present supple; Absent lymphadenopathy *Routine Respiratory Exam Respiratory: Present CTA bilaterally *Routine Cardiovascular Exam Cardiovascular: Present RRR *Routine Abdominal Exam Abdominal: Present soft and normoactive bowel sounds; Absent tenderness *Routine Extremities Exam Extremities: Absent cyanosis, clubbing or edema *Routine Skin Exam Skin: Present warm; Absent rash *Routine Neurological Exam Neurological: Present alert and oriented X3 Assessment and Plan *Assessment and plan (1) Acute urethral obstruction: Status: Inactive Category: Medical Code(s): N36.8 - Other specified disorders of urethra (2) Acute UTI: Status: Acute Category: Medical Code(s): N39.0 - Urinary tract infection, site not specified (3) Sepsis: Status: Acute Category: Medical Code(s): A41.9 - Sepsis, unspecified organism (4) Rectal cancer: Status: Acute Category: Medical Code(s): C20 - Malignant neoplasm of rectum (5) Colostomy present on admission: Status: Inactive Category: Medical Code(s): Z93.3 - Colostomy status (6) Rectal mass: Status: Acute Category: Medical Code(s): K62.89 - Other specified diseases of anus and rectum (7) Pelvic lymphadenopathy: Status: Acute Category: Medical Code(s): R59.0 - Localized enlarged lymph nodes (8) Colon wall thickening: Status: Acute Category: Medical Code(s): K63.9 - Disease of intestine, unspecified (9) Leukocytosis: Status: Acute Qualifiers: Leukocytosis type: unspecified Qualified Code(s): D72.829 - Elevated white blood cell count, unspecified Category: Medical Code(s): D72.829 - Elevated white blood cell count, unspecified (10) Urinary retention: Status: Acute Category: Medical Code(s): R33.9 - Retention of urine, unspecified (11) History of elevated PSA: Status: Inactive Category: Medical Code(s): Z87.898 - Personal history of other specified conditions Plan Clifton Quevedo is a 73 year old male with a medical history significant for rectal carcinoma who presented with concerns of urinary retention. He would found have sepsis secondary to UTI in the ED. He underwent laparoscopic low anterior resection of a rectosigmoid cancer on 06/29/19 at . Patient refused to be transferred to . He had been referred to our oncology Dr. Gillis for further evaluation and management for rectal carcinoma, but patient had to rescheule the previous appointment. Case discussed with ED providers and decision was made to admit patient for sepsis 2/2 UTI, urinary retention. #Urinary retention #Sepsis #UTI - Rodriguez catheter placed with appropriate urinary output. Had had a Rodriguez for similar symptoms earlier this year at . - UA grossly abnormal. Pending urine cultures. - WBC improved from 13.4 to 11.1. HR ~98. PLAN: - Continue Zosyn day 12/23. - Continue home tamsulosin 0.8mg. - Follow-up urine cultures. - Plan to keep Rodriguez catheter on discharge as retention may be sequalae of rectal carcinoma. Referral to Dr. Gillis made for next week. #History of rectal adenocarcinoma - Underwent laparoscopic low anterior resection of a rectosigmoid cancer on 06/29/19 at . Patient refused to be transferred to from ED. - He had been referred to our oncology Dr. Gillis for further evaluation and management for rectal carcinoma, but patient had to reschedule the previous appointment. - Will need to follow-up with Dr. Gillis. Appointemnt made with Dr. Gillis 10/04/24. #Hypertension - Resume home BP meds once approprirate for BP. #GERD - Resume home PPI. FULL CODE DVT prophylaxis: Lovenox 40mg
--- NOTE | 2024-09-30 18:21 | PC.NURSE ---
patient is alert and oriented x4. remains on RA. matt is draining, stoma is WDL. c/o waist/back pain earlier in shift, treated per JAN, no complaints since. call light within reach, no further requests at this time.
[2024-09-30 20:00] VITALS: BP 154/64; PULSE 96; RESP 18; TEMP 37.7; O2SAT 96
[2024-09-30] MEDS: TAMSULOSIN 0.4MG CAPSULE 0.8 MG PO (20:36)
[2024-09-30] MEDS: PANTOPRAZOLE 40MG TABLET 40 MG PO (20:36)
[2024-09-30] MEDS: PRAVASTATIN 40MG TAB 40 MG PO (20:36)
[2024-10-01] MEDS: PIPERACILLIN/TAZO 4.5 GM in 0.9 % SODIUM CHLORIDE 100 ML IV ×3 (03:48→15:28)
[2024-10-01] MEDS: 0.9 % SODIUM CHLORIDE 1000ML 1,000 ML 75 ML IV (03:48)
[2024-10-01 04:00] VITALS: BP 149/63; PULSE 93; RESP 16; TEMP 36.7; O2SAT 98; BMI 23.5
[2024-10-01 07:46] VITALS: BP 154/62; PULSE 98; RESP 17; TEMP 36.8; O2SAT 98
[2024-10-01] MEDS: LISINOPRIL 20MG TABLET 20 MG PO (08:15)
[2024-10-01 09:14] LABS: HCV Ab Non Reactive (Non Reactive)
[2024-10-01] MEDS: ACETAMINOPHEN 325MG TAB 650 MG PO (15:08)
[2024-10-01 15:26] VITALS: BP 162/73; PULSE 97; RESP 15; TEMP 37.7; O2SAT 96
[2024-10-01] MEDS: 0.9 % SODIUM CHLORIDE 1000ML 1,000 ML 999 ML IV (16:40)
--- NOTE | 2024-10-01 16:52 | EXP.DC.SUM ---
General Admission date:: 09/29/24 HPI HPI HPI: This patient has a very long complicated history of urinary retention, on 05/02/2019 patient was noted to have a mass in the retrosigmoid area. 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 Unsure of exact date but colostomy has been placed., Patient is noted for urinary retention in July 2020 also on 03/22/2024 had catheter placed and I went back to ER kept the catheter for more than 70 days and it was removed, patient also noted in the past with elevated PSA, patient returns today with fever elevated heart rate appearing to be septic with urinary retention positive leuks positive blood in the urine, Rodriguez catheter has been placed antibiotics have been started fluid has been given. Also noting that the patient's weight was 65 kg in November 2020 it presently is 53 kg. Emergency room physician called me to come down to see about admitting the patient because the patient was refusing transfer to . I came down and interviewed the patient who is alert and oriented. He felt he was not treated well at and refused cancer treatment in the past because of this., Patient was noted that he was supposed to see Dr. Graf on July 22. Patient stated he called and had to cancel that appointment. He notes he never followed up but he was never called for a return appointment.. Examination of the CT scan shows a very large mass in the pelvic region also probable intrusion into urethra by the mass., Rodriguez catheter is easily seen and bladder is now drained. I have talked to the patient about any future treatment of that would need the specialty of the Hospital patient says he does not want this he will be a DNR., With this I will go ahead and admit him to the floor that we will treat him for sepsis related to urinary tract infection.. At present I feel that the patient is stable and should do well as far as clearing the urinary tract infection. Patient understands that I have no control over any potential bleeding into the pelvic area related to this very large tumor.. The patient has noted this and is wanting to be a DNR he does not want surgery does not want transfer so I feel comfortable placing him up on the floor to treat him for this. Noting his son is in the room who is recently retired from the [employer] who is aware of all of this. The patient did state him this is just like mom that nothing would be done that she was a DNR also. So I do feel that we can treat and possibly cure the immediate problem. Get rid of the elevated heart rate the sepsis get the patient's fluid balance squared away and be able to discharge him home. Hospital Course Hospital Course Hospital Course: Clifton Quevedo is a 73 year old male with a medical history significant for rectal carcinoma who presented with concerns of urinary retention. He would found have sepsis secondary to UTI in the ED. He underwent laparoscopic low anterior resection of a rectosigmoid cancer on 06/29/19 at . Patient refused to be transferred to . He had been referred to our oncology Dr. Gillis for further evaluation and management for rectal carcinoma, but patient had to rescheule the previous appointment. Case discussed with ED providers and decision was made to admit patient for sepsis 2/2 UTI, urinary retention. #Urinary retention #Sepsis #UTI - Rodriguez catheter placed with appropriate urinary output. Had had a Rodriguez for similar symptoms earlier this year at . - UA grossly abnormal. Urine cultures normal, but will continue treatment given grossly abnormal UA and new retention symptoms. - WBC improved from 13.4 to 11.1. - Blood cultures NGTD. - Treated with Zosyn for 3 days. Will discharge with levaquin for 5 more days. - Continue home tamsulosin 0.8mg. - Plan to keep Rodriguez catheter on discharge as retention may be sequalae of rectal carcinoma. Referral to Dr. Gillis made for next week. - Patient will follow-up with Dr. gillis on 10/04/24. #History of rectal adenocarcinoma - Underwent laparoscopic low anterior resection of a rectosigmoid cancer on 06/29/19 at . Patient refused to be transferred to from ED. - He had been referred to our oncology Dr. Gillis for further evaluation and management for rectal carcinoma, but patient had to reschedule the previous appointment. - Will need to follow-up with Dr. Gillis. Appointemnt made with Dr. Gillis 10/04/24. #Sinus tachycardia - HR has been sustaining in 90's, low 100's. Denies chest pain, shortness of breath, palpitation. - Patient states this is a chornic issue. - However given underlying cancer, CTA was obtained to rule out PE and it did not show PE. - Started metoprolol succinate 25mg daily. #Hypertension - Resume home lisinopril 20mg. #GERD - Resume home omeprazole 20mg. Exam Data for Last 24 hours Vital signs and Labs for Last 24 Hours: Temp Pulse Resp BP Pulse Ox O2 Del Method 99.8 F H 97 H 15 162/73 H 96 Room Air 10/01/24 15:26 10/01/24 15:26 10/01/24 15:26 10/01/24 15:26 10/01/24 15:26 10/01/24 15:26 Laboratory Results - last 24 hr 09/29/24 17:32: Hepatitis C Antibody Non reactive I & O for Last 24 hours: Intake & Output 09/28/24 09/29/24 09/30/24 10/01/24 23:59 23:59 23:59 23:59 Intake Total 2835 / 3385 1120 / 1120 Output Total 750 / 750 900 / 900 600 / 600 Balance -750 / -750 1935 / 2485 520 / 520 Weight 54.93 kg 54.09 kg 60.146 kg Microbiology Reports for the Last 24 Hours: Microbiology 09/29/24 18:01 Blood Blood Culture - Preliminary NO GROWTH AFTER 24 HOURS 09/29/24 17:52 Blood Blood Culture - Preliminary NO GROWTH AFTER 24 HOURS Constitutional Constitutional: no acute distress *Routine HEENT Exam Head: Present normocephalic Eye: Present EOMI and PERRL ENT: Present mucous membranes moist *Routine Neck Exam Neck: Present supple; Absent lymphadenopathy *Routine Respiratory Exam Respiratory: Present CTA bilaterally *Routine Cardiovascular Exam Cardiovascular: Present RRR *Routine Abdominal Exam Abdominal: Present soft and normoactive bowel sounds; Absent tenderness *Routine Extremities Exam Extremities: Absent cyanosis, clubbing or edema *Routine Skin Exam Skin: Present warm; Absent rash *Routine Neurological Exam Neurological: Present alert and oriented X3 Results Data Completed and Pending Labs on day of discharge: Labs from last 24 hours 09/29/24 17:32 Hepatitis C Antibody Non reactive Preliminary micro results at discharge 09/29/24 18:01 Blood Culture - Preliminary Blood NO GROWTH AFTER 24 HOURS 09/29/24 17:52 Blood Culture - Preliminary Blood NO GROWTH AFTER 24 HOURS DS: Diagnosis Discharge Diagnosis (1) Acute UTI: Status: Acute Code(s): N39.0 - Urinary tract infection, site not specified (2) Sepsis: Status: Acute Code(s): A41.9 - Sepsis, unspecified organism (3) Rectal cancer: Status: Acute Code(s): C20 - Malignant neoplasm of rectum (4) Rectal mass: Status: Acute Code(s): K62.89 - Other specified diseases of anus and rectum (5) Pelvic lymphadenopathy: Status: Acute Code(s): R59.0 - Localized enlarged lymph nodes (6) Colon wall thickening: Status: Acute Code(s): K63.9 - Disease of intestine, unspecified (7) Leukocytosis: Status: Acute Code(s): D72.829 - Elevated white blood cell count, unspecified Qualifiers: Leukocytosis type: unspecified Qualified Code(s): D72.829 - Elevated white blood cell count, unspecified (8) Urinary retention: Status: Acute Code(s): R33.9 - Retention of urine, unspecified Meds Home Medications and Allergies Home Medications ?Medication ?Instructions ?Recorded ?Confirmed ?Type lisinopril 20 mg tablet 20 mg PO DAILY 04/27/19 10/04/24 History omeprazole 20 mg capsule,delayed 20 mg PO DAILY 04/27/19 10/04/24 History release simvastatin 40 mg tablet 40 mg PO HS 04/27/19 10/04/24 History theophylline 300 mg 300 mg PO DAILY 04/27/19 10/04/24 History tablet,extended release,12 hr tamsulosin 0.4 mg capsule 0.8 mg PO DAILY 09/29/24 10/04/24 History levofloxacin 750 mg tablet 750 mg PO DAILY 5 days #5 tabs 10/01/24 10/04/24 Rx metoprolol succinate 25 mg 25 mg PO DAILY 30 days #30 tabs 10/01/24 10/04/24 Rx tablet,extended release 24 hr allopurinol 300 mg tablet 300 mg PO DAILY 10/04/24 10/04/24 History carvedilol 25 mg tablet 25 mg PO DAILY 10/04/24 10/04/24 History dicyclomine 10 mg capsule 10 mg PO TID 10/04/24 10/04/24 History furosemide 20 mg tablet 20 mg PO DAILY 10/04/24 10/04/24 History potassium chloride 20 mEq 20 meq PO DAILY 10/04/24 10/04/24 History tablet,extended release ferrous sulfate 325 mg (65 mg 325 mg PO DAILY #30 tabs 10/05/24 Rx iron) tablet New Prescriptions to Start Prescriptions: levofloxacin Almas Castro metoprolol succinate Almas Castro Allergies Allergy/AdvReac Type Severity Reaction Status Date / Time No Known Allergies Allergy Verified 10/04/24 09:27 Discharge Plan Disposition Patient Disposition: Home, Self-Care Follow up Plan Follow up with: Margaret Montano APRN [Primary Care Provider] - 10/07/24 2:30 pm Olivier Gillis MD [Staff Physician] - 10/04/24 10:00 am Prescriptions/Medication Reconciliation: New metoprolol succinate 25 mg Tablet Extended Release 24 Hr 25 mg PO DAILY 30 Days Qty: 30 0RF levofloxacin 750 mg tablet 750 mg PO DAILY 5 Days Qty: 5 0RF Continued lisinopril 20 MG tablet 20 mg PO DAILY simvastatin 40 MG tablet 40 mg PO HS theophylline 300 MG tablet extended release 12 hr 300 mg PO DAILY omeprazole 20 MG capsule,delayed release(DR/EC) 20 mg PO DAILY tamsulosin 0.4 mg capsule 0.8 mg PO DAILY Patient Comments: TAKE 2 CAPSULES BY MOUTH EVERY DAY No Action potassium chloride 20 mEq tablet extended release 20 meq PO DAILY Patient Comments: TAKE 1 TABLET BY MOUTH DAILY WITH FOOD furosemide 20 mg tablet 20 mg PO DAILY Patient Comments: TAKE 1 TABLET BY MOUTH DAILY carvedilol 25 mg tablet 25 mg PO DAILY Patient Comments: TAKE 1 TABLET BY MOUTH TWICE DAILY WITH FOOD allopurinol 300 mg tablet 300 mg PO DAILY Patient Comments: TAKE 1 TABLET BY MOUTH DAILY dicyclomine 10 mg capsule 10 mg PO TID Patient Comments: TAKE 1 CAPSULE BY MOUTH THREE TIMES DAILY 30 MINUTES BEFORE EATING NEEDED ferrous sulfate 325 mg (65 mg iron) tablet 325 mg PO DAILY Qty: 30 2RF Problem Reconciliation Problems Reviewed?: Yes Patient Discharge Instructions Patient Instructions: DI for Urinary Tract Infection (UTI), DI for Sepsis -- Adult Print Language: Occitan Providers Primary Care Provider: Margaret Montano Admit Provider: lAmas Castro Attending Provider: Almas Castro
--- NOTE | 2024-10-01 16:56 | CT_ITS ---
PROCEDURE INFORMATION: Exam: CTA Chest With Contrast Exam date and time: 10/01/2024 5:14 PM Age: 73 years old Clinical indication: Shortness of breath; Additional info: Eval for pe TECHNIQUE: Imaging protocol: Computed tomographic angiography of the chest with contrast. Exam focused on the arteries. 3D rendering (Not supervised by radiologist): MIP and/or 3D reconstructed images were created by the technologist. Radiation optimization: All CT scans at this facility use at least one of these dose optimization techniques: automated exposure control; mA and/or kV adjustment per patient size (includes targeted exams where dose is matched to clinical indication); or iterative reconstruction. Contrast material: ISOVUE 370; Contrast volume: 70 ml; Contrast route: INTRAVENOUS (IV); COMPARISON: CT ABDOMEN PELVIS W CON 09/29/2024 6:25 PM FINDINGS: Pulmonary arteries: There is suboptimal opacification of pulmonary arteries due to contrast bolus timing. Aorta: Regions of atherosclerotic vascular calcification involving the aortic arch. Lungs: Bilateral ground-glass regions of opacification. Findings nonspecific however most likely reflect interstitial lung disease. Pleural spaces: Small bilateral pleural effusions Heart: Unremarkable. No cardiomegaly. No pericardial effusion. Coronary arteries: coronary artery calcification Lymph nodes: Calcified mediastinal lymph nodes Spleen: Splenic granulomas Bones/joints: Unremarkable. No acute fracture. Soft tissues: Unremarkable. IMPRESSION: 1. No evidence of acute abnormality. 2. No large or central pulmonary embolus. Evaluation of the peripheral pulmonary arteries is limited. 3. Bilateral ground-glass regions of opacification. Findings nonspecific however most likely reflect interstitial lung disease.
[2024-10-01] MEDS: 0.9 % SODIUM CHLORIDE 50 ML VIAL IV (17:13)
[2024-10-01] MEDS: SODIUM CHLORIDE 0.9% 10ML SYR (RAD ONLY) 10 ML IV (17:13)
[2024-10-01] MEDS: IOPAMIDOL-370 (76%);100ML BOTTLE 70 ML IV (17:14)
[2024-10-01] MEDS: METOPROLOL SUCCINATE XL 25MG TABLET 25 MG PO (18:20)
--- NOTE | 2024-10-03 13:46 | SW/DCPLANNER ---
spoke with patient and stated that he is doing good and that his urine in catheter is almost clear and that he hopes Dr prather will let it come out tomorrow. Patient stated that he has no concerns or questions.
== END 2024-10-01 18:37 | disposition home or self-care (01) ==
LOC: ER 17:27 → 2ND 20:50
PROVIDERS: Nurse Practitioner Family; Admitting Provider Student in an Organized Health Care Education/Training Program; Emergency Provider Student in an Organized Health Care Education/Training Program; PCP Nurse Practitioner Family; Visit Provider Student in an Organized Health Care Education/Training Program
DX: N39.0 Urinary tract infection, site not specified (principal); C20 Malignant neoplasm of rectum; Z93.3 Colostomy status; R33.9 Retention of urine, unspecified; J44.9 Chronic obstructive pulmonary disease, unspecified; Z79.899 Other long term (current) drug therapy
CPT/HCPCS: 36415; 51702; 71275; 74177; 80053; 81001; 82803; 83605; 83690; 83735; 85007; 85025; 85027; 86803; 87040; 87086; 87389; 93005; 99291; G0378; J0696; J2543; J7030; Q9967

== ENCOUNTER 2024-10-04 10:45 | Outpatient (CLI) | payer MEDICARE, SELFPAY ==
[2024-10-04 14:26] LABS: Iron 33 ug/dL (49-181)
[2024-10-04 14:36] LABS: Total Iron Binding Capacity 284 ug/dL (261-462)
[2024-10-04 15:03] LABS: Ferritin 72.1 ng/ml (17.9-464)
[2024-10-05 11:15] LABS: CEA 10.2 ng/mL (0.0-4.7)
--- NOTE | 2024-11-08 14:48 | DIET.NUTRFU ---
consulted by Dr. Gillis patient had no dietary concerns, has been drinking ensure daily. Does not feel he has been losing weight. He was wanting to know what foods have iron in them- meat/spinach and then some foods are enriched with iron-cereal/bread.
== END 2024-10-04 23:59 | disposition home or self-care (01) ==
LOC: LAB 10:45
PROVIDERS: PCP Nurse Practitioner Family; Visit Provider Internal Medicine Medical Oncology
DX: C18.9 Malignant neoplasm of colon, unspecified (principal); D72.829 Elevated white blood cell count, unspecified; E87.6 Hypokalemia
CPT/HCPCS: 36415; 82378; 82728; 83540; 83550

== ENCOUNTER 2024-11-26 05:19 | Emergency (ER) | payer MEDICARE, SELFPAY ==
[2024-11-26] VITALS (7 sets, daily range): BP systolic 127–170; BP diastolic 55–72; PULSE 90–129; RESP 16–18; TEMP 36.7–37; O2SAT 95–100; BMI 20.1
--- NOTE | 2024-11-26 05:27 | PC.NURSE ---
Bladder scan showed 150 CC in bladder Pt states urine leaking around catheter
--- NOTE | 2024-11-26 05:35 | ED_ITS ---
Discharge Plan Disposition Patient Disposition: Home, Self-Care Prescriptions Prescriptions: New sulfamethoxazole-trimethoprim 800-160 mg tablet 1 tab PO BID 7 Days Qty: 14 0RF No Action potassium chloride 20 mEq tablet extended release 20 meq PO DAILY Patient Comments: TAKE 1 TABLET BY MOUTH DAILY WITH FOOD furosemide 20 mg tablet 20 mg PO DAILY Patient Comments: TAKE 1 TABLET BY MOUTH DAILY carvedilol 25 mg tablet 25 mg PO DAILY Patient Comments: TAKE 1 TABLET BY MOUTH TWICE DAILY WITH FOOD allopurinol 300 mg tablet 300 mg PO DAILY Patient Comments: TAKE 1 TABLET BY MOUTH DAILY dicyclomine 10 mg capsule 10 mg PO TID Patient Comments: TAKE 1 CAPSULE BY MOUTH THREE TIMES DAILY 30 MINUTES BEFORE EATING NEEDED ferrous sulfate 325 mg (65 mg iron) tablet 325 mg PO DAILY Qty: 30 2RF lisinopril 20 MG tablet 20 mg PO DAILY simvastatin 40 MG tablet 40 mg PO HS theophylline 300 MG tablet extended release 12 hr 300 mg PO DAILY omeprazole 20 MG capsule,delayed release(DR/EC) 20 mg PO DAILY tamsulosin 0.4 mg capsule 0.8 mg PO DAILY Patient Comments: TAKE 2 CAPSULES BY MOUTH EVERY DAY metoprolol succinate 25 mg Tablet Extended Release 24 Hr 25 mg PO DAILY 30 Days Qty: 30 0RF levofloxacin 750 mg tablet 750 mg PO DAILY 5 Days Qty: 5 0RF Referrals Follow up/Referrals: Almas Martínez MD [Staff Physician] - See instructions Activity Restrictions/Add. Instructions Additional Instructions/Restrictions: Please take antibiotics as prescribed for treatment of urinary tract infection. Recommend calling and following up with urology. Please follow-up with your primary care provider. Please return to the emergency department if you develop any new or worsening symptoms or become concerned for your health. Clinical Impressions Clinical Impression: Catheter-associated urinary tract infection, Urinary retention Instructions Patient Instructions: DI for Urinary Tract Infection (UTI) Print Language Print Language: Luxembour[place] Discharge ED Provider: Raj Manzano General Adult HPI <Jorge Alberto Resendiz MD - Last Filed: 11/27/24 01:05> General Chief complaint: Urogenital-Male Stated complaint: catheter problem Time Seen by Provider: 11/26/24 05:20 Mode of Arrival: EMS Source of Information: Patient and EMS Limitations: No Limitations Description of Symptoms (Recalled from ER Triage Doc. by RN): pt had a matt placed 09/29, and has remained indwelling without complications until yesterday. pt reports he began having decreased output and some burning. pt also reports some leaking around the catheter. pt denies any other complaints History of Present Illness HPI narrative: 74-year-old male with history of recurrent rectal cancer presents for inability to pee through his catheter. He reports the catheter was placed on 09/29, 2 months ago, and it has not been replaced at all since that time. He has not followed up with urology. He reports that he has been unable to pee properly for the last couple of days. Denies fever at home. He reports that he had a prolonged catheter earlier this year as well. Related Data Home Medications ?Medication ?Instructions ?Recorded ?Confirmed lisinopril 20 mg tablet 20 mg PO DAILY 04/27/19 11/07/24 omeprazole 20 mg capsule,delayed 20 mg PO DAILY 04/27/19 11/07/24 release simvastatin 40 mg tablet 40 mg PO HS 04/27/19 11/07/24 theophylline 300 mg 300 mg PO DAILY 04/27/19 11/07/24 tablet,extended release,12 hr tamsulosin 0.4 mg capsule 0.8 mg PO DAILY 09/29/24 11/07/24 allopurinol 300 mg tablet 300 mg PO DAILY 10/04/24 11/07/24 carvedilol 25 mg tablet 25 mg PO DAILY 10/04/24 11/07/24 dicyclomine 10 mg capsule 10 mg PO TID 10/04/24 11/07/24 furosemide 20 mg tablet 20 mg PO DAILY 10/04/24 11/07/24 potassium chloride 20 mEq 20 meq PO DAILY 10/04/24 11/07/24 tablet,extended release Previous Rx's ?Medication ?Instructions ?Recorded levofloxacin 750 mg tablet 750 mg PO DAILY 5 days #5 tabs 10/01/24 metoprolol succinate 25 mg 25 mg PO DAILY 30 days #30 tabs 10/01/24 tablet,extended release 24 hr ferrous sulfate 325 mg (65 mg 325 mg PO DAILY #30 tabs 10/05/24 iron) tablet sulfamethoxazole 800 1 tab PO BID 7 days #14 tabs 11/26/24 mg-trimethoprim 160 mg tablet Allergies Allergy/AdvReac Type Severity Reaction Status Date / Time No Known Allergies Allergy Verified 11/07/24 09:27 [facility] <Jorge Alberto Resendiz MD - Last Filed: 11/27/24 01:05> [facility] Disclaimer: The information contained in this section may have been updated after the patient was seen, as this information can be updated by other users. Medical History Rectal cancer Abscess of rectum Acute lower gastrointestinal bleeding Pelvic lymphadenopathy Colon wall thickening Urinary tract infection Hypertension Gout Cholecystectomy planned Colostomy in place History of elevated PSA Colostomy present on admission Leukocytosis Urinary retention Surgical History History of colon resection COPD (chronic obstructive pulmonary disease) Social History Smoking Status: Never smoker alcohol intake: never substance use type: denies use current occupational status: retired Travel in the last 8 weeks: None household members: none housing: house caffeine: No Have you lived/traveled outside [place] in past 30 days?: No Contact w/someone who lives/traveled outside US past 30 days?: No Exposure to someone with infectious disease in past 14 days?: No Do you have a fever (greater than 100.4 F or 38 C)?: No Have you tested positive for COVID-19: No Exposed to someone with COVID-19 in past 14 days?: No Do you have a sore throat?: No Do you have a cough?: No Do you have any weakness?: No Do you have any diarrhea?: No Are you experiencing any unusual bleeding?: No Do you have any muscle aches/pain?: No Do you have any abdominal pain?: No Are you experiencing loss of taste or smell?: No Other Medical History Have you received the Flu Vaccine for this season: No Have you received the Pneumonia Vaccine: No <Joreg Alberto Resendiz MD - Last Filed: 11/27/24 01:05> ROS Obtained: Yes All systems reviewed & no additional complaints except as documented Physical Exam <Jorge Alberto Resendiz MD - Last Filed: 11/27/24 01:05> General General appearance: alert and in no apparent distress Head Head exam: atraumatic and normocephalic Eye Eye exam: Present normal appearance, PERRL and EOMI ENT ENT exam: Present normal oropharynx and normal external ear exam Neck Neck exam: Present normal inspection and full ROM Chest Chest inspection: Present normal inspection and symmetric chest wall rise; Absent tenderness Respiratory Respiratory exam: Present normal lung sounds bilaterally; Absent respiratory distress Cardiovascular Cardiovascular exam: Present regular rate and normal rhythm Abdominal Exam Abdominal exam: Present soft; Absent distention or guarding Comment: Ostomy present. Mild suprapubic tenderness. Extremities Exam Extremities exam: Present normal inspection; Absent edema or joint swelling Back Exam Back exam: Present normal inspection; Absent tenderness Neurological Exam Neurological exam: Present alert and oriented X3; Absent motor sensory deficit Psychiatric Psychiatric exam: Present normal affect and normal mood Skin Skin exam: Present warm, dry and normal color Lymphatic Lymphatic Findings: no adenopathy Medical Decision Making <Jorge Alberto Resendiz MD - Last Filed: 11/27/24 01:05> Medical Records Medical records reviewed: Yes I reviewed the patient's medical records. Screening: Per USPSTF and CDC recommendations, given the prevalence of disease in our region, it is our hospital?s policy to screen for HIV and viral Hepatitis for all patients aged 18 and over and those with ongoing risk factors. Osmel Inquiry Pt receiving controlled substance: No Osmel was queried for this patient: No Vital Signs: 11/26/24 05:21 11/26/24 05:26 11/26/24 05:30 Temperature 98.6 F Temperature Source Oral Pulse Rate 125 H 120 H Pulse Rate [Right] 129 H Respiratory Rate 16 Blood Pressure 127/68 140/72 Blood Pressure [Right Arm] 127/68 Blood Pressure Mean Blood Pressure Mean [Right Arm] 87 02 Sat by Pulse Oximetry 98 95 100 Oxygen Delivery Method Room Air 11/26/24 06:30 11/26/24 07:00 11/26/24 07:30 Temperature Temperature Source Pulse Rate 102 H Pulse Rate [Right] Respiratory Rate Blood Pressure 170/67 H 134/55 L 142/61 H Blood Pressure [Right Arm] Blood Pressure Mean 101 108 Blood Pressure Mean [Right Arm] 02 Sat by Pulse Oximetry Oxygen Delivery Method 11/26/24 07:58 Temperature 98.1 F Temperature Source Oral Pulse Rate 90 Pulse Rate [Right] Respiratory Rate 18 Blood Pressure 142/62 H Blood Pressure [Right Arm] Blood Pressure Mean Blood Pressure Mean [Right Arm] 02 Sat by Pulse Oximetry Oxygen Delivery Method Room Air Lab Data Lab results reviewed: Yes I reviewed the patient's lab results. Lab Results 11/26/24 05:53: Urine Color Mounika, Urine Appearance Cloudy, Urine pH 8.5, Ur Specific [place] 1.020, Urine Protein 2+ A, Urine Glucose (UA) Negative, Urine Ketones Negative, Urine Blood 3+ A, Urine Nitrate Positive A, Urine Bilirubin 1+ A, Urine Urobilinogen 0.2, Ur Leukocyte Esterase 2+ A, Urine RBC Tntc, Urine WBC 10-20, Ur Squamous Epith Cells None, Urine Bacteria 2+ Orders (Tests/Meds): ED MEDICATIONS Discontinued Medications Generic Name Dose Route Start Last Admin Trade Name Saadia PRN Reason Stop Dose Admin Ceftriaxone Sodium 1 gm 11/26/24 06:09 11/26/24 06:12 Ceftriaxone 1gm Vial IM 11/26/24 06:10 1 gm ONCE ONE Administration Lidocaine HCl 0 ml 11/26/24 06:09 Lidocaine 1% 5ml Pf Vial IM 11/26/24 06:10 ONCE ONE ORDERS Category Date Time Status UA [Urinalysis and Microscopic] Stat Lab 11/26/24 05:53 Completed Urine Culture Stat Micro 11/26/24 05:53 Received Medical Decision Narrative: 74-year-old male with history of recurrent colorectal cancer presents for a clogged catheter that has been in for 2 months. Clogged since yesterday. History was obtained via interactive discussion with patient, chart review. On arrival, patient is [afebrile, hemodynamically stable, satting appropriately, alert, oriented x4, GCS 15], moving all extremities spontaneously. Full physical exam performed and significant for mild suprapubic tenderness. Patient's documented heart rate is 129, when I was in the room it was less than 100. Differential includes but is not limited to catheter malfunction, UTI, urinary retention. It is unclear why the patient never followed up with urology for voiding trial, scope etc. Given this catheter has been in place for 2 months without voiding trial, and is clogged and likely infected, patient would like to trial removal catheter to see if he can pee. Urinalysis results interpreted by me are consistent with infection. Patient was given IM ceftriaxone and a prescription for Bactrim. Patient is attempting voiding trial. <Raj Manzano MD - Last Filed: 11/26/24 08:02> Vital Signs: 11/26/24 05:21 11/26/24 05:26 11/26/24 05:30 Temperature 98.6 F Temperature Source Oral Pulse Rate 125 H 120 H Pulse Rate [Right] 129 H Respiratory Rate 16 Blood Pressure 127/68 140/72 Blood Pressure [Right Arm] 127/68 Blood Pressure Mean Blood Pressure Mean [Right Arm] 87 02 Sat by Pulse Oximetry 98 95 100 Oxygen Delivery Method Room Air 11/26/24 06:30 11/26/24 07:00 11/26/24 07:30 Temperature Temperature Source Pulse Rate 102 H Pulse Rate [Right] Respiratory Rate Blood Pressure 170/67 H 134/55 L 142/61 H Blood Pressure [Right Arm] Blood Pressure Mean 101 108 Blood Pressure Mean [Right Arm] 02 Sat by Pulse Oximetry Oxygen Delivery Method 11/26/24 07:58 Temperature 98.1 F Temperature Source Oral Pulse Rate 90 Pulse Rate [Right] Respiratory Rate 18 Blood Pressure 142/62 H Blood Pressure [Right Arm] Blood Pressure Mean Blood Pressure Mean [Right Arm] 02 Sat by Pulse Oximetry Oxygen Delivery Method Room Air Lab Data Lab Results 11/26/24 05:53: Urine Color Mounika, Urine Appearance Cloudy, Urine pH 8.5, Ur Specific [place] 1.020, Urine Protein 2+ A, Urine Glucose (UA) Negative, Urine Ketones Negative, Urine Blood 3+ A, Urine Nitrate Positive A, Urine Bilirubin 1+ A, Urine Urobilinogen 0.2, Ur Leukocyte Esterase 2+ A, Urine RBC Tntc, Urine WBC 10-20, Ur Squamous Epith Cells None, Urine Bacteria 2+ Orders (Tests/Meds): ED MEDICATIONS Discontinued Medications Generic Name Dose Route Start Last Admin Trade Name Freq PRN Reason Stop Dose Admin Ceftriaxone Sodium 1 gm 11/26/24 06:09 11/26/24 06:12 Ceftriaxone 1gm Vial IM 11/26/24 06:10 1 gm ONCE ONE Administration Lidocaine HCl 0 ml 11/26/24 06:09 Lidocaine 1% 5ml Pf Vial IM 11/26/24 06:10 ONCE ONE ORDERS Category Date Time Status UA [Urinalysis and Microscopic] Stat Lab 11/26/24 05:53 Completed Urine Culture Stat Micro 11/26/24 05:53 Received Medical Decision Narrative: 74-year-old male with history of recurrent colorectal cancer presents for a clogged catheter that has been in for 2 months. Clogged since yesterday. History was obtained via interactive discussion with patient, chart review. On arrival, patient is afebrile, hemodynamically stable, satting appropriately, alert, oriented x4, GCS 15, moving all extremities spontaneously. Full physical exam performed and significant for mild suprapubic tenderness. Patient's documented heart rate is 129, when I was in the room it was less than 100. Differential includes but is not limited to catheter malfunction, UTI, urinary retention. It is unclear why the patient never followed up with urology for voiding trial, scope etc. Given this catheter has been in place for 2 months without voiding trial, and is clogged and likely infected, patient would like to trial removal catheter to see if he can pee. Urinalysis results interpreted by me are consistent with infection. Patient was given IM ceftriaxone and a prescription for Bactrim. Patient is attempting voiding trial. Natacha: I assumed primary responsibility for this patient after signout from previous physician. On my evaluation, patient in no acute distress, but unable to void. Agreeable to Matt catheter outpatient follow-up. Prescription was sent to clinic pharmacy as [facility] not open today. Because patient at baseline without signs or symptoms of clinical decompensation, deemed appropriate for discharge. Results were relayed to patient who voiced understanding and were agreeable to outpatient management and follow up. I discussed my clinical impression with patient and answered all questions. At this time, the evidence for any other entities in the differential is insufficient to warrant any further testing or ED observation. This was explained as well. Advisory was given that persistent or worsening symptoms require further evaluation. I confirmed the understanding of this discussion. Procedures <Jorge Alberto Resendiz MD - Last Filed: 11/27/24 01:05> Risk/Benefits of Procedure(s) Were Explained: Yes Critical Care <Raj Manzano MD - Last Filed: 11/26/24 08:02> Critical Care Time Critical Care Time: No
--- NOTE | 2024-11-26 05:39 | PC.NURSE ---
Urinary Catheter removed Pt states it was placed in September and has not been changed nor has he had urology follow up
[2024-11-26 05:57] LABS: Microscopic, Urine URINE MICROSCOPIC (MICROSCOPIC)
[2024-11-26 06:00] LABS: Blood, Urine 3+ (Negative); Glucose,Urine (UA) Negative (Negative); Ketones,Urine Negative (Negative); Leukocyte Esterase,Urine 2+ (Negative); Nitrate,Urine POSITIVE (Negative); PH,Urine 8.5 (5.0-8.5); Protein,Urine 2+ (Negative); Urobilinogen,Urine 0.2 EU/dl (0.2)
[2024-11-26 06:04] LABS: Appearance,Urine Cloudy (Clear); Bilirubin,Urine 1+ (Negative); Color,Urine Amber (Yellow)
[2024-11-26] MEDS: cefTRIAXone 1GM VIAL 1 GM IM (06:12)
[2024-11-26 06:18] LABS: Bacteria,Urine 2+ /lpf; RBC,Urine TNTC #/hpf (0-3)
--- NOTE | 2024-11-26 06:27 | PC.NURSE ---
pt bladder scanned. 275ml shown
--- NOTE | 2024-11-28 12:24 | PC.NURSE ---
urine culture discussed with , pt dc with bactrim, no new orders
== END 2024-11-26 08:02 | disposition home or self-care (01) ==
PROVIDERS: Emergency Medicine; Emergency Provider Emergency Medicine; PCP Nurse Practitioner Family
DX: T83.511A Infection and inflammatory reaction due to indwelling urethral catheter, initial encounter (principal); R33.9 Retention of urine, unspecified; R30.9 Painful micturition, unspecified
CPT/HCPCS: 81001; 87086; 87088; 87186; 96372; 99283; J0696

== ENCOUNTER 2024-11-27 07:21 | Emergency (ER) | payer MEDICARE, SELFPAY ==
[2024-11-27 07:21] VITALS: BP 124/77; PULSE 130; RESP 18; TEMP 36.5; O2SAT 100; BMI 19.5
--- NOTE | 2024-11-27 07:24 | ECG_ITS ---
APPROVED REPORT Exam: Resting ECG HR:126 bpm ECG Measurements Heart Rate 126 AXES DE 142 P 73 QRSd 81 QRS 71 QT 319 T 68 QTc 394 Conclusion Sinus tachycardia Electronically signed by : JESUS SHEPPARD, 11/28/2024 07:16:59
[2024-11-27 07:30] VITALS: BP 161/76; PULSE 129; RESP 14; O2SAT 96
[2024-11-27 08:00] VITALS: BP 149/71; PULSE 122; RESP 16; O2SAT 99
--- NOTE | 2024-11-27 08:03 | PC.NURSE ---
Contacted [facility] for a poss. transport to [place].
--- NOTE | 2024-11-27 08:03 | HMH.EDGENADL ---
Discharge Plan Disposition Patient Disposition: Xfer Short-Term Hosp Chief Complaint: Urogenital-Male Prescriptions Prescriptions: No Action potassium chloride 20 mEq tablet extended release 20 meq PO DAILY Patient Comments: TAKE 1 TABLET BY MOUTH DAILY WITH FOOD furosemide 20 mg tablet 20 mg PO DAILY Patient Comments: TAKE 1 TABLET BY MOUTH DAILY carvedilol 25 mg tablet 25 mg PO DAILY Patient Comments: TAKE 1 TABLET BY MOUTH TWICE DAILY WITH FOOD allopurinol 300 mg tablet 300 mg PO DAILY Patient Comments: TAKE 1 TABLET BY MOUTH DAILY dicyclomine 10 mg capsule 10 mg PO TID Patient Comments: TAKE 1 CAPSULE BY MOUTH THREE TIMES DAILY 30 MINUTES BEFORE EATING NEEDED ferrous sulfate 325 mg (65 mg iron) tablet 325 mg PO DAILY Qty: 30 2RF lisinopril 20 MG tablet 20 mg PO DAILY simvastatin 40 MG tablet 40 mg PO HS theophylline 300 MG tablet extended release 12 hr 300 mg PO DAILY omeprazole 20 MG capsule,delayed release(DR/EC) 20 mg PO DAILY tamsulosin 0.4 mg capsule 0.8 mg PO DAILY Patient Comments: TAKE 2 CAPSULES BY MOUTH EVERY DAY metoprolol succinate 25 mg Tablet Extended Release 24 Hr 25 mg PO DAILY 30 Days Qty: 30 0RF levofloxacin 750 mg tablet 750 mg PO DAILY 5 Days Qty: 5 0RF sulfamethoxazole-trimethoprim 800-160 mg tablet 1 tab PO BID 7 Days Qty: 14 0RF Referrals Follow up/Referrals: Provider,Referral, MD [Referring] - See instructions Clinical Impressions Clinical Impression: Urinary retention, Catheter-associated urinary tract infection Stand Alone Forms Stand Alone Forms: Transfer Record - ED Instructions Patient Instructions: DI for Urinary Tract Infection (UTI), DI for Urinary Tract Infection in Children Print Language Print Language: Romanian Discharge ED Provider: Raj Manzano General Adult HPI General Chief complaint: Urogenital-Male Stated complaint: Catheter not draining Time Seen by Provider: 11/27/24 07:23 Mode of Arrival: EMS Source of Information: Patient Limitations: No Limitations Description of Symptoms (Recalled from ER Triage Doc. by RN): Patient reports that his catheter is not draining and has not drained since yesterday morning. States he has had a feeling of pressure and being full to the point that he urinated around his matt catheter. History of Present Illness HPI narrative: Please note that above description of symptoms, in this electronic medical record under categorization of recalled from ER triage doctor by RN are reflective of an initial nursing assessment, however, is not reflective of my full history and physical exam that was personally taken and clarified. Consequentially, this preceding description of symptoms, which may include the patient's categorized chief complaint in the EMR, do not reflect my personal clinical impression, and the ultimate description of history of present illness and patient stated complaints should be deferred to this section of the note. Unless stated otherwise or congruent with this section of the note, additional signs, symptoms, or incongruence should be interpreted as inaccurate with my clinical impression. Related Data Home Medications ?Medication ?Instructions ?Recorded ?Confirmed lisinopril 20 mg tablet 20 mg PO DAILY 04/27/19 11/07/24 omeprazole 20 mg capsule,delayed 20 mg PO DAILY 04/27/19 11/07/24 release simvastatin 40 mg tablet 40 mg PO HS 04/27/19 11/07/24 theophylline 300 mg 300 mg PO DAILY 04/27/19 11/07/24 tablet,extended release,12 hr tamsulosin 0.4 mg capsule 0.8 mg PO DAILY 09/29/24 11/07/24 allopurinol 300 mg tablet 300 mg PO DAILY 10/04/24 11/07/24 carvedilol 25 mg tablet 25 mg PO DAILY 10/04/24 11/07/24 dicyclomine 10 mg capsule 10 mg PO TID 10/04/24 11/07/24 furosemide 20 mg tablet 20 mg PO DAILY 10/04/24 11/07/24 potassium chloride 20 mEq 20 meq PO DAILY 10/04/24 11/07/24 tablet,extended release Previous Rx's ?Medication ?Instructions ?Recorded levofloxacin 750 mg tablet 750 mg PO DAILY 5 days #5 tabs 10/01/24 metoprolol succinate 25 mg 25 mg PO DAILY 30 days #30 tabs 10/01/24 tablet,extended release 24 hr ferrous sulfate 325 mg (65 mg 325 mg PO DAILY #30 tabs 10/05/24 iron) tablet sulfamethoxazole 800 1 tab PO BID 7 days #14 tabs 11/26/24 mg-trimethoprim 160 mg tablet Allergies Allergy/AdvReac Type Severity Reaction Status Date / Time No Known Allergies Allergy Verified 11/07/24 09:27 [facility] Disclaimer: The information contained in this section may have been updated after the patient was seen, as this information can be updated by other users. Medical History Rectal cancer Abscess of rectum Acute lower gastrointestinal bleeding Pelvic lymphadenopathy Colon wall thickening Urinary tract infection Hypertension Gout Cholecystectomy planned Colostomy in place History of elevated PSA Colostomy present on admission Leukocytosis Urinary retention Surgical History History of colon resection COPD (chronic obstructive pulmonary disease) Social History Smoking Status: Unknown if ever smoked alcohol intake: never substance use type: denies use current occupational status: retired Travel in the last 8 weeks: None household members: none housing: house caffeine: No Have you lived/traveled outside [place] in past 30 days?: No Contact w/someone who lives/traveled outside [place] past 30 days?: No Exposure to someone with infectious disease in past 14 days?: No Do you have a fever (greater than 100.4 F or 38 C)?: No Have you tested positive for COVID-19: No Exposed to someone with COVID-19 in past 14 days?: No Do you have a sore throat?: No Do you have a cough?: No Do you have any weakness?: No Do you have any diarrhea?: No Are you experiencing any unusual bleeding?: No Do you have any muscle aches/pain?: No Do you have any abdominal pain?: No Are you experiencing loss of taste or smell?: No Other Medical History Have you received the Flu Vaccine for this season: No Have you received the Pneumonia Vaccine: No ROS Obtained: Yes All systems reviewed & no additional complaints except as documented Physical Exam General General appearance: alert and in no apparent distress Head Head exam: atraumatic and normocephalic Eye Eye exam: Present normal appearance, PERRL and EOMI Neck Neck exam: Present normal inspection, full ROM and trachea midline Respiratory Respiratory exam: Present normal lung sounds bilaterally; Absent respiratory distress, wheezes, stridor, accessory muscle use or prolonged expiratory phase Cardiovascular Cardiovascular exam: Present normal rhythm, tachycardia and other (Pulses equal symmetric in upper and lower extremities) Abdominal Exam Abdominal exam: Present soft, distention (Suprapubic distention with mild tenderness), tenderness and other (ostomy in place wnl); Absent guarding, rebound, rigidity or pulsatile mass Abdominal tenderness: Present suprapubic and mild Extremities Exam Extremities exam: Absent edema Neurological Exam Neurological exam: Present alert, oriented X3 and CN II-XII intact; Absent motor sensory deficit Skin Skin exam: Present warm and dry; Absent diaphoresis or erythema Medical Decision Making Medical Records Medical records reviewed: Yes I reviewed the patient's medical records. Screening: Per USPSTF and CDC recommendations, given the prevalence of disease in our region, it is our hospital?s policy to screen for HIV and viral Hepatitis for all patients aged 18 and over and those with ongoing risk factors. Osmel Inquiry Pt receiving controlled substance: No Osmel was queried for this patient: No Vital Signs: 11/27/24 07:21 11/27/24 07:30 Temperature 97.7 F Temperature Source Oral Pulse Rate 129 H Pulse Rate [Radial] 130 H Respiratory Rate 18 14 Blood Pressure 161/76 H Blood Pressure [Right Arm] 124/77 Blood Pressure Mean [Right Arm] 92 Blood Pressure Source [Right Arm] Automatic Cuff Blood Pressure Position [Right Arm] Sitting 02 Sat by Pulse Oximetry 100 96 Oxygen Delivery Method Room Air Orders (Tests/Meds): ED MEDICATIONS Discontinued Medications Generic Name Dose Route Start Last Admin Trade Name Freq PRN Reason Stop Dose Admin Ceftriaxone Sodium 1 gm/ 50 mls @ 100 mls/hr 11/27/24 07:53 Sodium Chloride IV 11/27/24 08:22 ONCE ONE Lidocaine HCl 10 ml 11/27/24 07:59 Lidocaine 2% Urojet 10ml TP 11/27/24 08:00 ONCE ONE ORDERS Category Date Time Status POCUS Point of Care (ER Only) Stat Exams 11/27/24 07:31 Ordered CBC w/Auto Diff [Complete Blood Count Auto Diff] Stat Lab 11/27/24 07:52 Ordered CMP [Comprehensive Metabolic Panel] Stat Lab 11/27/24 07:52 Ordered Lactic Acid Stat Lab 11/27/24 07:52 Ordered Blood Culture Stat Micro 11/27/24 07:52 Ordered Medical Decision Narrative: Is a 74-year-old male with history of rectal cancer status post colostomy placement, elevated PSA and BPH, gout, hypertension, hyperlipidemia presenting with urinary retention. Patient states that he had a Matt catheter in place for over a month due to being lost to follow-up. Stopped draining yesterday. Patient was actually here yesterday, 11/26 and Matt catheter was placed for acute urinary retention. Was also found to have urinary tract infection, so ceftriaxone was given and Matt catheter was placed. Catheter draining prior to discharge, however patient states once he got home he had 0 urinary output. Today, had lower abdominal cramping and urinated around the catheter, so called EMS to come back for further evaluation. History was obtained via conversation with patient. On arrival, patient hemodynamically stable, alert, oriented x4, appropriate, GCS 15, moving all extremities spontaneously, pupils equal and reactive to light. Full physical exam performed and significant for tachycardia, no acute distress. He does have abdominal distention and suprapubic area. No tenderness elsewhere. Colostomy in place looks within normal limits. Patient states that he is usually tachycardic with a heart rate of 1 30-1 40, states that he is supposed to be taking medications to control his rate, but never remembers to take it. States that he has no symptoms currently other than fullness in his bladder. Urinary retention, Matt catheter displacement, Matt catheter clot, urinary tract infection, plan for rupture, sepsis, among others. Labs ordered. Bedside [id number] ultrasound was performed, patient has over 550 mL in his bladder. No obvious evidence of Matt bulb in the bladder. He does have large amount of clot and sediment in the posterior and inferior aspect of the bladder as well. Multiple attempts at placing Matt were unsuccessful, under ultrasound guidance, Matt catheter appears to be going backward into the prostate. Because of this, [facility] contacted and case was discussed with urologist, MD Nolan. states that he has surgeries later this morning, would be able to place a Matt in the emergency department hopefully sent home. Independent interpretation of labs prior to transfer with leukocytosis 18,000 with neutrophilia. Mild hyponatremia 133. Patient was given 1 g Rocephin for continued treatment for UTI. Because patient high risk for clinical decompensation if discharged, deemed appropriate for transfer and treatment given concern for bladder rupture if Matt catheter not placed to drain. Results were relayed to patient who voiced understanding and patient was agreeable to transfer, inpatient admission, and management. Patient was graciously accepted and transferred to [facility] for further definitive management, under Dr. Francisco. 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 Electronic farmworker [employer] farm of the spoken language may permit errors. Although I have reviewed the note, some errors may still exist. Procedures Limited Ultrasound Indication:: Limited Bladder ultrasound Indication: Abdominal pain, urinary Identified structures: Location: bladder Findings: Around 550 mL in the bladder. No evidence of Matt bulb in the bladder Impression: Significantly distended bladder, no evidence of Matt bulb in the bladder, appears to be posterior in prostate. Large amount of sediment in the bladder as well Images were saved to permanent archive The study was technically adequate PVR bladder Codes: 82254-85 Limited abdominal [id number] This study was performed by me, and I personally interpreted all images/videos. Based on my clinical judgement, these images were adequate and did not necessitate further imaging Critical Care Critical Care Time Critical Care Time: Yes (urologic) Attestation: On 11/27/24, the high probability of a clinically significant, sudden or life threatening deterioration of the following system(s) required my full and direct attention, intervention and personal management. The time I documented below is in addition to time spent performing reported procedures but includes the following listed in this critical care notation. Total Time Total Critical Care Time: 45
--- NOTE | 2024-11-27 08:21 | PC.NURSE ---
DR SHEPPARD SPEAKING WITH [employer] [facility]
[2024-11-27 08:33] LABS: Basophils % 0.2 % (0.1-2.0); Eosinophils % 0.1 % (0.1-12.0); Hematocrit 33.7 % (42.0-52.0); Hemoglobin 10.4 g/dL (14.1-18.0); Lymphocytes % 5.4 % (10-50); Mean Corpuscular HGB Conc 30.9 g/dL (31.8-35.4); Mean Corpuscular Hemoglobin 24.3 pg (27.0-31.2); Mean Corpuscular Volume 78.7 fl (80-94); Mean Platelet Volume 8.5 fl (7.4-10.4); Monocytes # 0.7 K/mm3 (0.1-1.0); Monocytes % 3.9 % (1.7-9.3); Neutrophils # 16.2 K/mm3 (1.8-7.8); Neutrophils % 89.6 % (37.0-80.0); Platelet Count 382 K/mm3 (142-424); Red Blood Count 4.28 M/mm3 (4.60-6.20); Red Cell Distribution Width 15.5 % (11.5-17.5); White Blood Count 18.1 K/mm3 (4.8-10.8)
[2024-11-27 08:36] LABS: Albumin Level 3.4 g/dl (3.5-5.0); Chloride 104 mmol/L (98-107); Potassium 3.7 mmoL/L (3.5-5.1); Sodium 133 mmol/L (136-145)
[2024-11-27 08:37] LABS: MANUAL DIFFERENTIAL MANUAL DIFFERENTIAL (MANUAL DIFF)
[2024-11-27 08:38] LABS: Blood Urea Nitrogen 21 mg/dl (9-20); Creatinine Clearance Estimated 47 mL/min (50-200); Estimated Glomerular Filt Rate 83 ml/min (>60); GFR (African American) 100 ML/MIN (>60)
[2024-11-27 08:39] LABS: Alanine Aminotransferase 18 U/L (12-78); Alkaline Phosphatase 130 U/L (38-126); Anion Gap 14.7 mEq/L (5-15); Aspartate Amino Transferase 24 U/L (17-59); Bilirubin,Total 0.7 mg/dl (0.2-1.3); Calcium 9.4 mg/dl (8.4-10.2); Carbon Dioxide 18 mmol/L (22.0-30.0); Globulin 3.5 g/dL (1.3-3.2); Glucose 111 mg/dl (74-100); Total Protein,Serum 6.9 g/dl (6.3-8.2)
[2024-11-27 08:43] VITALS: BP 125/75; PULSE 117; RESP 13; O2SAT 93
--- NOTE | 2024-11-27 08:45 | PC.NURSE ---
EMS called for transport to [facility].
[2024-11-27] MEDS: LIDOCAINE 2% UROJET 10ML 10 ML TP (08:47)
[2024-11-27] MEDS: CEFTRIAXONE 1 GM 1 GM in 0.9 % SODIUM CHLORIDE 50 ML IV (08:47)
[2024-11-27 08:51] LABS: Lactic Acid 2.4 mmol/L (0.7-2.1)
--- NOTE | 2024-11-27 08:57 | PC.NURSE ---
called report to fabian morel at [facility]
[2024-11-27 09:00] VITALS: BP 127/69; PULSE 116; RESP 22; O2SAT 99
[2024-11-27 09:18] LABS: Hypochromasia 2+; Lymphocytes % 9 % (10-50); Microcytosis 1+; Monocytes % 2 % (2-9); Neutrophils % 89 % (42-76); Platelet Estimate Normal; Total Cells Counted 100
[2024-11-27 09:19] VITALS: BP 127/69; PULSE 116; RESP 22; TEMP 36.5; O2SAT 99
[2024-11-27 09:21] LABS: Microscopic, Urine URINE MICROSCOPIC (MICROSCOPIC)
--- NOTE | 2024-11-27 09:24 | PC.NURSE ---
urine culture results sent with pt, transfer to [place] for urology
[2024-11-27 09:33] LABS: Appearance,Urine CLOUDY (Clear); Blood, Urine 1+ (Negative); Color,Urine YELLOW (Yellow); Glucose,Urine (UA) Negative (Negative); Ketones,Urine TRACE (Negative); Leukocyte Esterase,Urine 1+ (Negative); Nitrate,Urine POSITIVE (Negative); PH,Urine 8.5 (5.0-8.5); Protein,Urine 2+ (Negative); Urobilinogen,Urine 0.2 EU/dl (0.2)
[2024-11-27 09:36] LABS: Bilirubin,Urine 1+ (Negative)
[2024-11-27 09:55] LABS: Bacteria,Urine 4+ /lpf; WBC,Urine 20-50 #/hpf (0-3)
[2024-11-27 12:36] LABS: Reflex Lactic Add Lactic Reflex
== END 2024-11-27 09:20 | disposition short-term general hospital (02) ==
PROVIDERS: Emergency Provider Emergency Medicine; PCP Nurse Practitioner Family
DX: T83.511A Infection and inflammatory reaction due to indwelling urethral catheter, initial encounter (principal); R33.9 Retention of urine, unspecified; C20 Malignant neoplasm of rectum; R10.30 Lower abdominal pain, unspecified; T83.098A Other mechanical complication of other urinary catheter, initial encounter
CPT/HCPCS: 51702; 80053; 81001; 83605; 85007; 85025; 85027; 87040; 87086; 93005; 96365; 99291; J0696

== ENCOUNTER 2024-12-21 14:34 | Outpatient (CLI) | payer MEDICARE, SELFPAY ==
[2024-12-21 14:34] LABS: Basophils % 0.4 % (0.1-2.0); Eosinophils # 0.2 K/mm3 (0.0-0.4); Eosinophils % 2.2 % (0.1-12.0); Hematocrit 32.9 % (42.0-52.0); Hemoglobin 9.7 g/dL (14.1-18.0); Lymphocytes # 2.3 K/mm3 (0.7-4.5); Lymphocytes % 29.8 % (10-50); Mean Corpuscular HGB Conc 29.5 g/dL (31.8-35.4); Mean Corpuscular Hemoglobin 24.4 pg (27.0-31.2); Mean Corpuscular Volume 82.7 fl (80-94); Mean Platelet Volume 9.6 fl (7.4-10.4); Monocytes # 0.4 K/mm3 (0.1-1.0); Monocytes % 5.7 % (1.7-9.3); Neutrophils # 4.7 K/mm3 (1.8-7.8); Neutrophils % 61.3 % (37.0-80.0); Platelet Count 219 K/mm3 (142-424); Red Blood Count 3.98 M/mm3 (4.60-6.20); Red Cell Distribution Width 16.5 % (11.5-17.5); White Blood Count 7.7 K/mm3 (4.8-10.8)
[2024-12-21 15:01] LABS: Albumin Level 4.2 g/dl (3.5-5.0); Chloride 105 mmol/L (98-107); Potassium 4.9 mmoL/L (3.5-5.1); Sodium 139 mmol/L (136-145)
[2024-12-21 15:04] LABS: Alanine Aminotransferase 41 U/L (12-78); Albumin/Globulin Ratio 1.6 (1.1-1.8); Alkaline Phosphatase 165 U/L (38-126); Anion Gap 13.9 mEq/L (5-15); Aspartate Amino Transferase 68 U/L (17-59); Bilirubin,Total 0.5 mg/dl (0.2-1.3); Blood Urea Nitrogen 13 mg/dl (9-20); Carbon Dioxide 25 mmol/L (22.0-30.0); Estimated Glomerular Filt Rate 132 ml/min (>60); GFR (African American) 160 ML/MIN (>60); Globulin 2.7 g/dL (1.3-3.2); Glucose 81 mg/dl (74-100); Total Protein,Serum 6.9 g/dl (6.3-8.2)
== END 2024-12-21 23:59 | disposition home or self-care (01) ==
LOC: LAB.DROPOF 14:35
PROVIDERS: PCP Nurse Practitioner Family; Visit Provider Nurse Practitioner Family
DX: R82.998 Other abnormal findings in urine (principal); R31.9 Hematuria, unspecified; T83.511A Infection and inflammatory reaction due to indwelling urethral catheter, initial encounter; N39.0 Urinary tract infection, site not specified
CPT/HCPCS: 80053; 85025; 87086; 87088

== ENCOUNTER 2025-01-17 09:39 | Outpatient (CLI) | payer MEDICARE, SELFPAY ==
[2025-01-17 17:20] LABS: MANUAL DIFFERENTIAL MANUAL DIFFERENTIAL (MANUAL DIFF)
[2025-01-17 18:22] LABS: Basophils # 0.1 K/mm3 (0-0.2); Basophils % 0.2 % (0.1-2.0); Eosinophils # 0.1 K/mm3 (0.0-0.4); Eosinophils % 0.3 % (0.1-12.0); Hematocrit 32.7 % (42.0-52.0); Hemoglobin 9.8 g/dL (14.1-18.0); Lymphocytes # 2.1 K/mm3 (0.7-4.5); Lymphocytes % 8.5 % (10-50); Mean Corpuscular Hemoglobin 23.2 pg (27.0-31.2); Mean Corpuscular Volume 77.5 fl (80-94); Monocytes # 1.2 K/mm3 (0.1-1.0); Monocytes % 4.8 % (1.7-9.3); Neutrophils # 21.7 K/mm3 (1.8-7.8); Neutrophils % 85.5 % (37.0-80.0); Platelet Count 469 K/mm3 (142-424); Red Blood Count 4.22 M/mm3 (4.60-6.20); Red Cell Distribution Width 14.7 % (11.5-17.5); White Blood Count 25.3 K/mm3 (4.8-10.8)
[2025-01-17 19:30] LABS: Albumin Level 3.3 g/dl (3.5-5.0); Chloride 101 mmol/L (98-107)
[2025-01-17 19:31] LABS: Potassium 4.5 mmoL/L (3.5-5.1); Sodium 136 mmol/L (136-145)
[2025-01-17 19:33] LABS: Alanine Aminotransferase 14 U/L (12-78); Alkaline Phosphatase 186 U/L (38-126); Anion Gap 19.5 mEq/L (5-15); Aspartate Amino Transferase 19 U/L (17-59); Bilirubin,Total 0.5 mg/dl (0.2-1.3); Blood Urea Nitrogen 10 mg/dl (9-20); Carbon Dioxide 20 mmol/L (22.0-30.0); Estimated Glomerular Filt Rate 111 ml/min (>60); GFR (African American) 134 ML/MIN (>60)
[2025-01-17 19:34] LABS: Calcium 8.7 mg/dl (8.4-10.2); Globulin 3.4 g/dL (1.3-3.2); Glucose 69 mg/dl (74-100); Total Protein,Serum 6.7 g/dl (6.3-8.2)
[2025-01-17 22:32] LABS: Lymphocytes % 13 % (10-50); Monocytes % 4 % (2-9); Neutrophils % 83 % (42-76); Platelet Estimate Slight Increase; RBC Morphology Normal; Total Cells Counted 100
== END 2025-01-17 23:59 | disposition home or self-care (01) ==
LOC: LAB.DROPOF 01-18 09:39
PROVIDERS: PCP Nurse Practitioner Family; Visit Provider Nurse Practitioner Family
DX: N39.0 Urinary tract infection, site not specified (principal); T83.511A Infection and inflammatory reaction due to indwelling urethral catheter, initial encounter
CPT/HCPCS: 80053; 85007; 85014; 85018; 85048; 85049

== ENCOUNTER 2025-02-17 09:44 | Inpatient (IN) | payer MEDICARE, SELFPAY ==
[2025-02-17] VITALS (24 sets, daily range): BP systolic 103–183; BP diastolic 53–80; PULSE 61–137; RESP 14–27; TEMP 36.9; O2SAT 93–100; BMI 20.1; BMI 21.1
--- NOTE | 2025-02-17 09:55 | XR_ITS ---
FINAL REPORT CLINICAL HISTORY: sepsis, cough COMPARISON: None FINDINGS: No acute pulmonary opacity is present. There is no evidence of effusion or pneumothorax. Mediastinum is unremarkable. Heart size is normal. IMPRESSION: No acute abnormality. Reviewed, Interpreted and Dictated by Lorena Ritchie MD Transcribed by Tabatha Weinberg Authenticated and [facility]
[2025-02-17 10:15] LABS: Basophils % 0.1 % (0.1-2.0); Eosinophils % 0.1 % (0.1-12.0); Hematocrit 31.7 % (42.0-52.0); Hemoglobin 9.9 g/dL (14.1-18.0); Lymphocytes # 1.5 K/mm3 (0.7-4.5); Lymphocytes % 8.5 % (10-50); Mean Corpuscular HGB Conc 31.2 g/dL (31.8-35.4); Mean Corpuscular Hemoglobin 22.5 pg (27.0-31.2); Mean Platelet Volume 9.2 fl (7.4-10.4); Monocytes # 0.6 K/mm3 (0.1-1.0); Monocytes % 3.7 % (1.7-9.3); Neutrophils # 15.1 K/mm3 (1.8-7.8); Platelet Count 329 K/mm3 (142-424); Red Cell Distribution Width 15.4 % (11.5-17.5); White Blood Count 17.3 K/mm3 (4.8-10.8)
[2025-02-17 10:16] LABS: Albumin Level 3.4 g/dl (3.5-5.0); Chloride 100 mmol/L (98-107); Sodium 134 mmol/L (136-145)
[2025-02-17 10:18] LABS: MANUAL DIFFERENTIAL MANUAL DIFFERENTIAL (MANUAL DIFF)
[2025-02-17 10:19] LABS: Alanine Aminotransferase 18 U/L (12-78); Albumin/Globulin Ratio 0.9 (1.1-1.8); Alkaline Phosphatase 145 U/L (38-126); Anion Gap 14.3 mEq/L (5-15); Aspartate Amino Transferase 25 U/L (17-59); Bilirubin,Total 0.6 mg/dl (0.2-1.3); Blood Urea Nitrogen 31 mg/dl (9-20); Carbon Dioxide 22 mmol/L (22.0-30.0); Creatinine Clearance Estimated 39 mL/min (50-200); Estimated Glomerular Filt Rate 60 ml/min (>60); GFR (African American) 72 ML/MIN (>60); Total Protein,Serum 7.4 g/dl (6.3-8.2)
[2025-02-17 10:20] LABS: Calcium 9.7 mg/dl (8.4-10.2); Glucose 128 mg/dl (74-100); Magnesium 1.8 mg/dl (1.6-2.3); Phosphorous 2.4 mg/dl (2.5-4.5)
[2025-02-17 10:21] LABS: Lactic Acid 2.6 mmol/L (0.7-2.1)
--- NOTE | 2025-02-17 10:21 | ED_ITS ---
Discharge Plan Disposition Chief Complaint: Weakness Prescriptions Prescriptions: No Action furosemide 20 mg tablet 20 mg PO DAILY Qty: 90 1RF potassium chloride 20 mEq tablet extended release 20 meq PO DAILY Patient Comments: TAKE 1 TABLET BY MOUTH DAILY WITH FOOD carvedilol 25 mg tablet 25 mg PO DAILY Patient Comments: TAKE 1 TABLET BY MOUTH TWICE DAILY WITH FOOD levofloxacin 750 mg tablet 750 mg PO DAILY 10 Days Qty: 10 0RF cefdinir 300 mg capsule 300 mg PO BID 7 Days Qty: 14 0RF lisinopril 20 MG tablet 20 mg PO DAILY simvastatin 40 MG tablet 40 mg PO HS theophylline 300 MG tablet extended release 12 hr 300 mg PO DAILY omeprazole 20 MG capsule,delayed release(DR/EC) 20 mg PO DAILY tamsulosin 0.4 mg capsule 0.8 mg PO DAILY Patient Comments: TAKE 2 CAPSULES BY MOUTH EVERY DAY Referrals Follow up/Referrals: Margaret Montano APRN [Primary Care Provider] - See instructions Clinical Impressions Clinical Impression: COVID-19, Sepsis, Chronic UTI, Hypokalemia, [place]-vesical fistula, Dilatation of colon, Adenocarcinoma of rectum Stand Alone Forms Stand Alone Forms: Transfer Record - ED Print Language Print Language: Upper Sorbian Discharge ED Provider: Stanley Mccurdy General Adult HPI <Mounika Springer DO - Last Filed: 02/17/25 16:36> General Chief complaint: Weakness Stated complaint: weakness Time Seen by Provider: 02/17/25 09:51 Mode of Arrival: EMS Source of Information: Patient Description of Symptoms (Recalled from ER Triage Doc. by RN): Call to EMS from home reports that Pt has general weakness, lightheadedness, and fatigue. Provider Dusty took labs and Pt reported that his WBC was 25. Upon arrivial from EMS patient states hes had the same matt catheter since November 2024 and feels like he might have a urinary infection. Catheter bag contains 150ml of dark yellow/ green urine with visual growth of baltazar matter. Colostomy bag present with minimal loose brown stool. Patient denies any pain or shortness of breath. 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 Patient states that he recently had strep and also has had issues with urinary tract infections. He notes that his been on cefdinir but has been feeling very weak. He states that his throat is feeling a lot better, but he just feels very weak overall, poor appetite, is not taking in much oral intake. He notes that he also has a cough but is not really coughing anything up. No abdominal pain, changes in ostomy output. He does note his urine in his Matt bag is very cloudy and it has not been changed in a very long time. No fevers, chills, chest pain or shortness of breath. Related Data Home Medications ?Medication ?Instructions ?Recorded ?Confirmed lisinopril 20 mg tablet 20 mg PO DAILY 04/27/19 01/17/25 omeprazole 20 mg capsule,delayed 20 mg PO DAILY 04/27/19 01/17/25 release simvastatin 40 mg tablet 40 mg PO HS 04/27/19 01/17/25 theophylline 300 mg 300 mg PO DAILY 04/27/19 01/17/25 tablet,extended release,12 hr tamsulosin 0.4 mg capsule 0.8 mg PO DAILY 09/29/24 01/17/25 carvedilol 25 mg tablet 25 mg PO DAILY 10/04/24 01/17/25 potassium chloride 20 mEq 20 meq PO DAILY 10/04/24 01/17/25 tablet,extended release Previous Rx's ?Medication ?Instructions ?Recorded furosemide 20 mg tablet 20 mg PO DAILY #90 tabs 12/21/24 levofloxacin 750 mg tablet 750 mg PO DAILY 10 days #10 tabs 01/18/25 cefdinir 300 mg capsule 300 mg PO BID 7 days #14 caps 02/14/25 Allergies Allergy/AdvReac Type Severity Reaction Status Date / Time No Known Allergies Allergy Verified 01/17/25 13:12 [facility] <Mounika Springer DO - Last Filed: 02/17/25 16:36> [facility] Disclaimer: The information contained in this section may have been updated after the patient was seen, as this information can be updated by other users. Medical History History of elevated PSA Rectal cancer Abscess of rectum Acute lower gastrointestinal bleeding Pelvic lymphadenopathy Colon wall thickening Urinary tract infection Hypertension Gout Cholecystectomy planned Colostomy in place Colostomy present on admission Leukocytosis Urinary retention Surgical History History of colon resection COPD (chronic obstructive pulmonary disease) Social History Smoking Status: Never smoker smoking status stop date: 2007 alcohol intake: never substance use type: denies use current occupational status: retired Travel in the last 8 weeks: None household members: none housing: house caffeine: No Have you lived/traveled outside US in past 30 days?: No Contact w/someone who lives/traveled outside US past 30 days?: No Exposure to someone with infectious disease in past 14 days?: No Do you have a fever (greater than 100.4 F or 38 C)?: No Have you tested positive for COVID-19: No Exposed to someone with COVID-19 in past 14 days?: No Do you have a sore throat?: No Do you have a cough?: No Do you have any weakness?: Yes Do you have any diarrhea?: No Are you experiencing any unusual bleeding?: No Do you have any muscle aches/pain?: No Do you have any abdominal pain?: No Are you experiencing loss of taste or smell?: No Other Medical History Have you received the Flu Vaccine for this season: No Have you received the Pneumonia Vaccine: No <Mounika Springer DO - Last Filed: 02/17/25 16:36> ROS Obtained: Yes All systems reviewed & no additional complaints except as documented Physical Exam <Mounika Springer DO - Last Filed: 02/17/25 16:36> General General appearance: alert, in no apparent distress and cachectic Comment: Ill-appearing Head Head exam: atraumatic and normocephalic Eye Eye exam: Present normal appearance, PERRL and EOMI ENT ENT exam: Present mucous membranes dry and normal external ear exam Neck Neck exam: Present normal inspection, full ROM and trachea midline; Absent tenderness Chest Chest inspection: Present normal inspection and symmetric chest wall rise; Absent tenderness Respiratory Respiratory exam: Present normal lung sounds bilaterally; Absent respiratory distress, wheezes, stridor or accessory muscle use Cardiovascular Cardiovascular exam: Present normal rhythm and tachycardia Abdominal Exam Abdominal exam: Present soft; Absent distention, tenderness, guarding or rebound Comment: Ostomy in place with good, soft output exam: Present other (Matt catheter in place with very cloudy urine that is full of sediment) Extremities Exam Extremities exam: Present normal inspection, full ROM and normal capillary refill; Absent tenderness or edema Back Exam Back exam: Present normal inspection and full ROM; Absent tenderness Neurological Exam Neurological exam: Present alert, oriented X3, CN II-XII intact and other (Generally weak without focal deficit); Absent motor sensory deficit Psychiatric Psychiatric exam: Present normal affect and normal mood Skin Skin exam: Present warm, dry and pallor Medical Decision Making <Mounika Springer, DO - Last Filed: 02/17/25 16:36> Medical Records Medical records reviewed: Yes I reviewed the patient's medical records. Screening: Per USPSTF and CDC recommendations, given the prevalence of disease in our region, it is our hospital?s policy to screen for HIV and viral Hepatitis for all patients aged 18 and over and those with ongoing risk factors. Osmel Inquiry Pt receiving controlled substance: No Vital Signs: 02/17/25 09:47 02/17/25 09:56 02/17/25 10:01 Temperature 98.4 F Temperature Source Oral Pulse Rate 137 H 127 H Pulse Rate [Left] 132 H Respiratory Rate 16 Blood Pressure 132/60 114/68 Blood Pressure [Left Arm] 103/66 L Blood Pressure Mean Blood Pressure Mean [Left Arm] 78 Blood Pressure Source [Left Arm] Automatic Cuff Blood Pressure Position [Left Arm] Supine 02 Sat by Pulse Oximetry 97 99 97 Oxygen Delivery Method Room Air Room Air Room Air 02/17/25 10:30 02/17/25 11:00 02/17/25 11:43 Temperature Temperature Source Pulse Rate 118 H 103 H 108 H Pulse Rate [Left] Respiratory Rate 18 22 Blood Pressure 123/80 135/55 L 135/55 L Blood Pressure [Left Arm] Blood Pressure Mean Blood Pressure Mean [Left Arm] Blood Pressure Source [Left Arm] Blood Pressure Position [Left Arm] 02 Sat by Pulse Oximetry 100 99 98 Oxygen Delivery Method Room Air Room Air 02/17/25 11:49 02/17/25 12:00 02/17/25 12:19 Temperature Temperature Source Pulse Rate 97 H 94 H 78 Pulse Rate [Left] Respiratory Rate 24 23 21 Blood Pressure 145/55 H 151/61 H Blood Pressure [Left Arm] Blood Pressure Mean Blood Pressure Mean [Left Arm] Blood Pressure Source [Left Arm] Blood Pressure Position [Left Arm] 02 Sat by Pulse Oximetry 100 98 Oxygen Delivery Method Room Air Room Air 02/17/25 12:30 02/17/25 13:01 02/17/25 13:30 Temperature Temperature Source Pulse Rate 91 H 99 H 91 H Pulse Rate [Left] Respiratory Rate 14 17 15 Blood Pressure 131/56 L 154/53 H 153/65 H Blood Pressure [Left Arm] Blood Pressure Mean Blood Pressure Mean [Left Arm] Blood Pressure Source [Left Arm] Blood Pressure Position [Left Arm] 02 Sat by Pulse Oximetry 100 95 98 Oxygen Delivery Method Room Air Room Air Room Air 02/17/25 14:02 02/17/25 14:30 02/17/25 15:00 Temperature Temperature Source Pulse Rate 101 H 95 H 92 H Pulse Rate [Left] Respiratory Rate 27 H 25 H 24 Blood Pressure 178/77 H 155/65 H 155/67 H Blood Pressure [Left Arm] Blood Pressure Mean Blood Pressure Mean [Left Arm] Blood Pressure Source [Left Arm] Blood Pressure Position [Left Arm] 02 Sat by Pulse Oximetry 95 97 99 Oxygen Delivery Method Room Air Room Air Room Air 02/17/25 15:31 02/17/25 16:00 02/17/25 16:31 Temperature Temperature Source Pulse Rate 85 84 80 Pulse Rate [Left] Respiratory Rate 20 20 Blood Pressure 151/60 H 154/64 H 183/73 H Blood Pressure [Left Arm] Blood Pressure Mean 85 Blood Pressure Mean [Left Arm] Blood Pressure Source [Left Arm] Blood Pressure Position [Left Arm] 02 Sat by Pulse Oximetry 98 98 96 Oxygen Delivery Method Room Air Room Air Room Air 02/17/25 17:00 Temperature Temperature Source Pulse Rate 91 H Pulse Rate [Left] Respiratory Rate 24 Blood Pressure 177/77 H Blood Pressure [Left Arm] Blood Pressure Mean Blood Pressure Mean [Left Arm] Blood Pressure Source [Left Arm] Blood Pressure Position [Left Arm] 02 Sat by Pulse Oximetry 93 L Oxygen Delivery Method Room Air Lab Data Lab results reviewed: Yes I reviewed the patient's lab results. Lab Results 02/17/25 09:58: WBC 17.3 H, RBC 4.40 L, Hgb 9.9 L, Hct 31.7 L, MCV 72.0 L, MCH 22.5 L, MCHC 31.2 L, RDW 15.4, Plt Count 329, MPV 9.2, Neut % (Auto) 87.0 H, L ymph % (Auto) 8.5 L, [place] % (Auto) 3.7, Eos % (Auto) 0.1, Baso % (Auto) 0.1, N eut # (Auto) 15.1 H, Lymph # (Auto) 1.5, [place] # (Auto) 0.6, Eos # (Auto) 0.0, Baso # (Auto) 0.0, Total Counted 100, Neutrophils % (Manual) 88 H, Lymphocytes % (Manual) 8 L, Monocytes % (Manual) 4, Platelet Estimate Normal, RBC Morphology Not Reportable, Hypochromasia 1+, PT 10.8, INR 0.96, APTT 30.8 H, D-Dimer 1.38 H , Sodium 134 L, Potassium 2.3 L*, Chloride 100, Carbon Dioxide 22, Anion Gap 14.3, BUN 31 H, Creatinine 1.20, Estimated Creat Clear 39, Estimated GFR 60, Est GFR ( Amer) 72, Glucose 128 H, Lactate 2.6 H, Calcium 9.7, Phosphorus 2.4 L, Magnesium 1.8, Total Bilirubin 0.6, AST 25, ALT 18, Alkaline Phosphatase 145 H, Troponin I < 0.01, C-Reactive Protein 226.9 H, NT-Pro-B Natriuret Pep 211 H, Total Protein 7.4, Albumin 3.4 L, Globulin 4.0 H, Albumin/Globulin Ratio 0.9 L, TSH 3.42, Thyroxine (T4) 11.4 H 02/17/25 10:31: SARS-CoV-2 (PCR) Detected A, Influenza A Untype (PCR) Not detected, Influenza Type B (PCR) Not detected 02/17/25 12:22: Urine Color Red, Urine Appearance Cloudy, Urine pH 5.5, Ur Specific [place] 1.015, Urine Protein 2+ A, Urine Glucose (UA) Negative, Urine Ketones Negative, Urine Blood 3+ A, Urine Nitrate Negative, Urine Bilirubin Negative, Urine Urobilinogen 0.2, Ur Leukocyte Esterase 2+ A, Urine RBC Tntc, Urine WBC Tntc, Ur Squamous Epith Cells Occasional, Urine Bacteria Trace 02/17/25 12:50: Troponin I < 0.01 02/17/25 14:16: Lactate 1.3 02/17/25 09:58 02/17/25 09:58 Orders (Tests/Meds): ED MEDICATIONS Generic Name Dose Route Start Last Admin Trade Name Freq PRN Reason Stop Dose Admin Miscellaneous 1 each 02/17/25 10:45 02/17/25 12:33 Vancomycin Consult Request NOTAPPLIC 03/19/25 10:44 Not Given CONSULT PHARMAC[facility] Sodium Chloride 3 ml 02/17/25 09:54 02/17/25 12:23 Sodium Chloride 3% 15ml [facility] 03/19/25 09:53 3 ml ONCE PRN Administration INDUCE [employer]LE[employer] Discontinued Medications Generic Name Dose Route Start Last Admin Trade Name Freq PRN Reason Stop Dose Admin Acetaminophen 1,000 mg 02/17/25 11:02 02/17/25 11:19 Acetaminophen 1,000mg/100ml Vial IV 02/17/25 11:03 1,000 mg ONCE ONE Administration Albuterol/Ipratropium 3 ml 02/17/25 12:21 02/17/25 12:22 Ipratropium/Albuterol 3 Ml [facility] 02/17/25 12:22 3 ml ONCE ONE Administration Potassium Chloride/Water 100 mls @ 50 mls/hr 02/17/25 10:23 02/17/25 13:03 Potassium Chloride 20meq/100ml Ivpb IV 02/17/25 14:22 50 mls/hr Q2H CAROLYN Administration Piperacillin Sod/Tazobactam 50 mls @ 100 mls/hr 02/17/25 10:37 02/17/25 11:07 Sod 3.375 gm/ Sodium Chloride IV 02/17/25 11:06 100 mls/hr ONCE ONE Administration Vancomycin HCl 1,000 mg/ 250 mls @ 125 mls/hr 02/17/25 11:00 02/17/25 12:26 Sodium Chloride IV 02/17/25 12:59 125 mls/hr ONCE ONE Administration Sodium Chloride 1,640 mls @ 820 mls/hr 02/17/25 12:13 02/17/25 12:26 Sod Chlor 0.9% 1000ml Bag 30 ml/kg infuse over 2 hr (1640 ml) 02/17/25 14:12 820 mls/hr IV Administration .Q2H ONE Iopamidol 75 ml 02/17/25 11:35 02/17/25 11:37 Iopamidol-370 (76%);100ml Bottle IV 02/17/25 11:36 75 ml ONCE ONE Administration Lidocaine HCl 5 ml 02/17/25 10:52 02/17/25 10:58 Lidocaine 2% Jelly 5ml Tube TP 02/17/25 10:53 5 ml ONCE ONE Administration Morphine Sulfate 2 mg 02/17/25 11:02 02/17/25 11:30 Morphine 2mg/Ml Syringe IV 02/17/25 11:03 Not Given ONCE ONE Ondansetron HCl 4 mg 02/17/25 11:02 02/17/25 11:19 Ondansetron 4mg/2ml Vial IV 02/17/25 11:03 4 mg ONCE ONE Administration Sodium Chloride 10 ml 02/17/25 11:35 02/17/25 11:37 Sodium Chloride 0.9% 10ml Syr (Rad Only) IV 02/17/25 11:36 10 ml ONCE ONE Administration Sodium Chloride 50 ml 02/17/25 11:35 02/17/25 11:37 0.9 % Sodium Chloride 50 Ml Vial IV 02/17/25 11:36 50 ml ONCE ONE Administration ORDERS Category Date Time Status CT abdomen pelvis w con Stat Cat Scan 02/17/25 11:[address] angio chest PE protocol Stat Cat Scan 02/17/25 11:22 Completed Care Management Consult [Consult to Case Management] [ Cons 02/17/25 12:18 Active CONS] Routine CXR --portable [XR chest portable] Stat Exams 02/17/25 09:55 Completed Activated Partial Thrombo Time Stat Lab 02/17/25 09:58 Completed BNP [NT Pro Brain Natriuretic Pep.] Stat Lab 02/17/25 09:58 Completed C-Reactive Protein Stat Lab 02/17/25 09:58 Completed Complete Blood Count Auto Diff Stat Lab 02/17/25 09:58 Completed Comprehensive Metabolic Panel Stat Lab 02/17/25 09:58 Completed D-Dimer Stat Lab 02/17/25 09:58 Completed Lactic Acid Follow Up (RFLX 1) Stat Lab 02/17/25 14:16 Completed Lactic Acid Stat Lab 02/17/25 09:58 Completed MAG [Magnesium] Stat Lab 02/17/25 09:58 Completed PHOS [Phosphorous] Stat Lab 02/17/25 09:58 Completed Prothrombin Time INR Stat Lab 02/17/25 09:58 Completed Rapid PCR Covid and Flu A/B Stat Lab 02/17/25 10:31 Completed T4 (Thyroxine) Stat Lab 02/17/25 09:58 Completed TSH [Thyroid Stimulating Hormone] Stat Lab 02/17/25 09:58 Completed Trop I [Troponin I] Stat Lab 02/17/25 09:58 Completed Troponin I Q3H Lab 02/17/25 12:50 Completed Troponin I Q3H Lab 02/17/25 16:00 Ordered Urinalysis and Microscopic Stat Lab 02/17/25 12:22 Completed Blood Culture Stat Micro 02/17/25 10:06 Received Sputum Culture & Gram Stain Stat Micro 02/17/25 12:19 Ordered Urine Culture Stat Micro 02/17/25 12:24 Received ECG Data Tracing #1: I reviewed this ECG and interpreted as documented below: Sinus tachycardia with a ventricular rate of [address] bpm[address] PVCs. No acute ST changes concerning for STEMI. Normal intervals ECG initial impression date: 02/17/25 ECG initial impression time: 10:38 Medical Decision Narrative: In summary, this patient is a 74-year-old male presenting to the Emergency Department for evaluation of general weakness and feeling unwell with very poor oral intake. He has had recent strep throat treated with antibiotics, cloudy urine in his Matt catheter bag that has not been changed since November, and he also has a cough. Differential diagnoses considered include but are not limited to sepsis, pneumonia, cystitis, pyelonephritis, dehydration, electrolyte derangements. Ruling out the most morbid conditions drove assessment. 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 This complicates all aspects of care by increasing patient's risk for morbidity. I reviewed patient's past medical records and noted prior evaluations at with surgical intervention including diverting colostomy, prior urology evaluations with chronic indwelling Matt catheter. I noted prior labs obtained 01/17/25 which showed a leukocytosis of 25,000, mild anemia that is chronic, elevated anion gap. He was seen outpatient at that time, declined Matt catheter exchange and elected to go home. He was told to call his urologist for urgent appointment but he did not follow with urology On exam, the patient is lying in bed, chronically ill-appearing, cachectic. He appears clinically dry with dry mucous membranes, delayed capillary refill. He has heart rate in the 130s but is normotensive, afebrile, nontachypneic not hypoxic. Workup included broad lab evaluation to evaluate for infectious, metabolic, cardiac derangements including blood cultures. Also elected to exchange matt after informed consent was obtained from the patient to send a new urine specimen from a new sterile bag. I also obtained EKG given tachycardia as well as chest x-ray given his cough. Patient was given sepsis bolus of IV fluids. Labs were obtained that demonstrated leukocytosis and mild anemia with a hemoglobin of 9.9. D-dimer is elevated at 1.38, so CT PE protocol was added to workup as well as CT abdomen and pelvis with IV contrast. Independently interpreted chest x-ray prior to radiology read and noted no large focal consolidation. I independently interpreted CT scans prior to the radiologist read and noted significant dilatation of the distal stump that is not connected to his ostomy. He has decompressed colon proximal to his ostomy. He has an extremely large pelvic mass that protrudes through his rectum. Please see their read for final interpretation. Labs obtained demonstrated profound hypokalemia in addition to leukocytosis and elevated D-dimer. IV repletion was ordered. He also has mild hyponatremia and elevated BUN, likely in the setting of the poor oral intake that he has had. CRP is significantly elevated as well. Urinalysis is grossly concerning for infection after Matt catheter change, which was performed with difficulty. He had a coud? catheter placed. He also is positive for COVID-19. Interventions so far have included IV potassium repletion, sepsis bolus of IV fluids, IV vancomycin and Zosyn given sepsis. I feel patient would benefit from transfer to higher level of care with colorectal surgery because of his dilated stump that is not draining from his rectum and is not connected to his ostomy. I had an interactive discussion with Dr. Lopez as well as with Dr. linton with colorectal surgery at where patients care has been. They advised that they do not feel the patient is a surgical candidate at all and that this is not likely the source of sepsis. They advise its likely mucus and that the patient would benefit from salvage measures such as digital rectal exam to decompress versus flex sigmoidoscopy to decompress. They will not accept the patient for transfer given that he is not a surgical candidate with no surgical emergency. Patient care signed to the oncoming provider, Dr. Mccurdy, pending discussion with GI for potential flex sig for further management and dispo. <Stanley Mccurdy MD - Last Filed: 02/17/25 17:23> Vital Signs: 02/17/25 09:47 02/17/25 09:56 02/17/25 10:01 Temperature 98.4 F Temperature Source Oral Pulse Rate 137 H 127 H Pulse Rate [Left] 132 H Respiratory Rate 16 Blood Pressure 132/60 114/68 Blood Pressure [Left Arm] 103/66 L Blood Pressure Mean Blood Pressure Mean [Left Arm] 78 Blood Pressure Source [Left Arm] Automatic Cuff Blood Pressure Position [Left Arm] Supine 02 Sat by Pulse Oximetry 97 99 97 Oxygen Delivery Method Room Air Room Air Room Air 02/17/25 10:30 02/17/25 11:00 02/17/25 11:43 Temperature Temperature Source Pulse Rate 118 H 103 H 108 H Pulse Rate [Left] Respiratory Rate 18 22 Blood Pressure 123/80 135/55 L 135/55 L Blood Pressure [Left Arm] Blood Pressure Mean Blood Pressure Mean [Left Arm] Blood Pressure Source [Left Arm] Blood Pressure Position [Left Arm] 02 Sat by Pulse Oximetry 100 99 98 Oxygen Delivery Method Room Air Room Air 02/17/25 11:49 02/17/25 12:00 02/17/25 12:19 Temperature Temperature Source Pulse Rate 97 H 94 H 78 Pulse Rate [Left] Respiratory Rate 24 23 21 Blood Pressure 145/55 H 151/61 H Blood Pressure [Left Arm] Blood Pressure Mean Blood Pressure Mean [Left Arm] Blood Pressure Source [Left Arm] Blood Pressure Position [Left Arm] 02 Sat by Pulse Oximetry 100 98 Oxygen Delivery Method Room Air Room Air 02/17/25 12:30 02/17/25 13:01 02/17/25 13:30 Temperature Temperature Source Pulse Rate 91 H 99 H 91 H Pulse Rate [Left] Respiratory Rate 14 17 15 Blood Pressure 131/56 L 154/53 H 153/65 H Blood Pressure [Left Arm] Blood Pressure Mean Blood Pressure Mean [Left Arm] Blood Pressure Source [Left Arm] Blood Pressure Position [Left Arm] 02 Sat by Pulse Oximetry 100 95 98 Oxygen Delivery Method Room Air Room Air Room Air 02/17/25 14:02 02/17/25 14:30 02/17/25 15:00 Temperature Temperature Source Pulse Rate 101 H 95 H 92 H Pulse Rate [Left] Respiratory Rate 27 H 25 H 24 Blood Pressure 178/77 H 155/65 H 155/67 H Blood Pressure [Left Arm] Blood Pressure Mean Blood Pressure Mean [Left Arm] Blood Pressure Source [Left Arm] Blood Pressure Position [Left Arm] 02 Sat by Pulse Oximetry 95 97 99 Oxygen Delivery Method Room Air Room Air Room Air 02/17/25 15:31 02/17/25 16:00 02/17/25 16:31 Temperature Temperature Source Pulse Rate 85 84 80 Pulse Rate [Left] Respiratory Rate 20 20 Blood Pressure 151/60 H 154/64 H 183/73 H Blood Pressure [Left Arm] Blood Pressure Mean 85 Blood Pressure Mean [Left Arm] Blood Pressure Source [Left Arm] Blood Pressure Position [Left Arm] 02 Sat by Pulse Oximetry 98 98 96 Oxygen Delivery Method Room Air Room Air Room Air 02/17/25 17:00 Temperature Temperature Source Pulse Rate 91 H Pulse Rate [Left] Respiratory Rate 24 Blood Pressure 177/77 H Blood Pressure [Left Arm] Blood Pressure Mean Blood Pressure Mean [Left Arm] Blood Pressure Source [Left Arm] Blood Pressure Position [Left Arm] 02 Sat by Pulse Oximetry 93 L Oxygen Delivery Method Room Air Lab Data Lab Results 02/17/25 09:58: WBC 17.3 H, RBC 4.40 L, Hgb 9.9 L, Hct 31.7 L, MCV 72.0 L, MCH 22.5 L, MCHC 31.2 L, RDW 15.4, Plt Count 329, MPV 9.2, Neut % (Auto) 87.0 H, L ymph % (Auto) 8.5 L, [place] % (Auto) 3.7, Eos % (Auto) 0.1, Baso % (Auto) 0.1, N eut # (Auto) 15.1 H, Lymph # (Auto) 1.5, [place] # (Auto) 0.6, Eos # (Auto) 0.0, Baso # (Auto) 0.0, Total Counted 100, Neutrophils % (Manual) 88 H, Lymphocytes % (Manual) 8 L, Monocytes % (Manual) 4, Platelet Estimate Normal, RBC Morphology Not Reportable, Hypochromasia 1+, PT 10.8, INR 0.96, APTT 30.8 H, D-Dimer 1.38 H , Sodium 134 L, Potassium 2.3 L*, Chloride 100, Carbon Dioxide 22, Anion Gap 14.3, BUN 31 H, Creatinine 1.20, Estimated Creat Clear 39, Estimated GFR 60, Est GFR ( Amer) 72, Glucose 128 H, Lactate 2.6 H, Calcium 9.7, Phosphorus 2.4 L, Magnesium 1.8, Total Bilirubin 0.6, AST 25, ALT 18, Alkaline Phosphatase 145 H, Troponin I < 0.01, C-Reactive Protein 226.9 H, NT-Pro-B Natriuret Pep 211 H, Total Protein 7.4, Albumin 3.4 L, Globulin 4.0 H, Albumin/Globulin Ratio 0.9 L, TSH 3.42, Thyroxine (T4) 11.4 H 02/17/25 10:31: SARS-CoV-2 (PCR) Detected A, Influenza A Untype (PCR) Not detected, Influenza Type B (PCR) Not detected 02/17/25 12:22: Urine Color Red, Urine Appearance Cloudy, Urine pH 5.5, Ur Specific [place] 1.015, Urine Protein 2+ A, Urine Glucose (UA) Negative, Urine Ketones Negative, Urine Blood 3+ A, Urine Nitrate Negative, Urine Bilirubin Negative, Urine Urobilinogen 0.2, Ur Leukocyte Esterase 2+ A, Urine RBC Tntc, Urine WBC Tntc, Ur Squamous Epith Cells Occasional, Urine Bacteria Trace 02/17/25 12:50: Troponin I < 0.01 02/17/25 14:16: Lactate 1.3 Orders (Tests/Meds): ED MEDICATIONS Generic Name Dose Route Start Last Admin Trade Name Freq PRN Reason Stop Dose Admin Miscellaneous 1 each 02/17/25 10:45 02/17/25 12:33 Vancomycin Consult Request NOTAPPLIC 03/19/25 10:44 Not Given CONSULT [facility] Sodium Chloride 3 ml 02/17/25 09:54 02/17/25 12:23 Sodium Chloride 3% 15ml Neb 03/19/25 09:53 3 ml ONCE PRN Administration INDUCE SPUTUM COLLECTION Discontinued Medications Generic Name Dose Route Start Last Admin Trade Name Freq PRN Reason Stop Dose Admin Acetaminophen 1,000 mg 02/17/25 11:02 02/17/25 11:19 Acetaminophen 1,000mg/100ml Vial IV 02/17/25 11:03 1,000 mg ONCE ONE Administration Albuterol/Ipratropium 3 ml 02/17/25 12:21 02/17/25 12:22 Ipratropium/Albuterol 3 Ml Neb IH 02/17/25 12:22 3 ml ONCE ONE Administration Potassium Chloride/Water 100 mls @ 50 mls/hr 02/17/25 10:23 02/17/25 13:03 Potassium Chloride 20meq/100ml Ivpb IV 02/17/25 14:22 50 mls/hr Q2H CAROLYN Administration Piperacillin Sod/Tazobactam 50 mls @ 100 mls/hr 02/17/25 10:37 02/17/25 11:07 Sod 3.375 gm/ Sodium Chloride IV 02/17/25 11:06 100 mls/hr ONCE ONE Administration Vancomycin HCl 1,000 mg/ 250 mls @ 125 mls/hr 02/17/25 11:00 02/17/25 12:26 Sodium Chloride IV 02/17/25 12:59 125 mls/hr ONCE ONE Administration Sodium Chloride 1,640 mls @ 820 mls/hr 02/17/25 12:13 02/17/25 12:26 Sod Chlor 0.9% 1000ml Bag 30 ml/kg infuse over 2 hr (1640 ml) 02/17/25 14:12 820 mls/hr IV Administration .Q2H ONE Iopamidol 75 ml 02/17/25 11:35 02/17/25 11:37 Iopamidol-370 (76%);100ml Bottle IV 02/17/25 11:36 75 ml ONCE ONE Administration Lidocaine HCl 5 ml 02/17/25 10:52 02/17/25 10:58 Lidocaine 2% Jelly 5ml Tube TP 02/17/25 10:53 5 ml ONCE ONE Administration Morphine Sulfate 2 mg 02/17/25 11:02 02/17/25 11:30 Morphine 2mg/Ml Syringe IV 02/17/25 11:03 Not Given ONCE ONE Ondansetron HCl 4 mg 02/17/25 11:02 02/17/25 11:19 Ondansetron 4mg/2ml Vial IV 02/17/25 11:03 4 mg ONCE ONE Administration Sodium Chloride 10 ml 02/17/25 11:35 02/17/25 11:37 Sodium Chloride 0.9% 10ml Syr (Rad Only) IV 02/17/25 11:36 10 ml ONCE ONE Administration Sodium Chloride 50 ml 02/17/25 11:35 02/17/25 11:37 0.9 % Sodium Chloride 50 Ml Vial IV 02/17/25 11:36 50 ml ONCE ONE Administration ORDERS Category Date Time Status CT abdomen pelvis w con Stat Cat Scan 02/17/25 11:[address] angio chest PE protocol Stat Cat Scan 02/17/25 11:22 Completed Care Management Consult [Consult to Case Management] [ Cons 02/17/25 12:18 Active CONS] Routine CXR --portable [XR chest portable] Stat Exams 02/17/25 09:55 Completed Activated Partial Thrombo Time Stat Lab 02/17/25 09:58 Completed BNP [NT Pro Brain Natriuretic Pep.] Stat Lab 02/17/25 09:58 Completed C-Reactive Protein Stat Lab 02/17/25 09:58 Completed Complete Blood Count Auto Diff Stat Lab 02/17/25 09:58 Completed Comprehensive Metabolic Panel Stat Lab 02/17/25 09:58 Completed D-Dimer Stat Lab 02/17/25 09:58 Completed Lactic Acid Follow Up (RFLX 1) Stat Lab 02/17/25 14:16 Completed Lactic Acid Stat Lab 02/17/25 09:58 Completed MAG [Magnesium] Stat Lab 02/17/25 09:58 Completed PHOS [Phosphorous] Stat Lab 02/17/25 09:58 Completed Prothrombin Time INR Stat Lab 02/17/25 09:58 Completed Rapid PCR Covid and Flu A/B Stat Lab 02/17/25 10:31 Completed T4 (Thyroxine) Stat Lab 02/17/25 09:58 Completed TSH [Thyroid Stimulating Hormone] Stat Lab 02/17/25 09:58 Completed Trop I [Troponin I] Stat Lab 02/17/25 09:58 Completed Troponin I Q3H Lab 02/17/25 12:50 Completed Troponin I Q3H Lab 02/17/25 16:00 Ordered Urinalysis and Microscopic Stat Lab 02/17/25 12:22 Completed Blood Culture Stat Micro 02/17/25 10:06 Received Sputum Culture & Gram Stain Stat Micro 02/17/25 12:19 Ordered Urine Culture Stat Micro 02/17/25 12:24 Received Medical Decision Narrative: In summary, this patient is a 74-year-old male presenting to the Emergency Department for evaluation of general weakness and feeling unwell with very poor oral intake. He has had recent strep throat treated with antibiotics, cloudy urine in his Matt catheter bag that has not been changed since November, and he also has a cough. Differential diagnoses considered include but are not limited to sepsis, pneumonia, cystitis, pyelonephritis, dehydration, electrolyte derangements. Ruling out the most morbid conditions drove assessment. 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 This complicates all aspects of care by increasing patient's risk for morbidity. I reviewed patient's past medical records and noted prior evaluations at with surgical intervention including diverting colostomy, prior urology evaluations with chronic indwelling Matt catheter. I noted prior labs obtained 01/17/25 which showed a leukocytosis of 25,000, mild anemia that is chronic, elevated anion gap. He was seen outpatient at that time, declined Matt catheter exchange and elected to go home. He was told to call his urologist for urgent appointment but he did not follow with urology On exam, the patient is lying in bed, chronically ill-appearing, cachectic. He appears clinically dry with dry mucous membranes, delayed capillary refill. He has heart rate in the 130s but is normotensive, afebrile, nontachypneic not hypoxic. Workup included broad lab evaluation to evaluate for infectious, metabolic, cardiac derangements including blood cultures. Also elected to exchange matt after informed consent was obtained from the patient to send a new urine specimen from a new sterile bag. I also obtained EKG given tachycardia as well as chest x-ray given his cough. Patient was given sepsis bolus of IV fluids. Labs were obtained that demonstrated leukocytosis and mild anemia with a hemoglobin of 9.9. D-dimer is elevated at 1.38, so CT PE protocol was added to workup as well as CT abdomen and pelvis with IV contrast. Independently interpreted chest x-ray prior to radiology read and noted no large focal consolidation. I independently interpreted CT scans prior to the radiologist read and noted significant dilatation of the distal stump that is not connected to his ostomy. He has decompressed colon proximal to his ostomy. He has an extremely large pelvic mass that protrudes through his rectum. Please see their read for final interpretation. Labs obtained demonstrated profound hypokalemia in addition to leukocytosis and elevated D-dimer. IV repletion was ordered. He also has mild hyponatremia and elevated BUN, likely in the setting of the poor oral intake that he has had. CRP is significantly elevated as well. Urinalysis is grossly concerning for infection after Matt catheter change, which was performed with difficulty. He had a coud? catheter placed. He also is positive for COVID-19. Interventions so far have included IV potassium repletion, sepsis bolus of IV fluids, IV vancomycin and Zosyn given sepsis. I feel patient would benefit from transfer to higher level of care with colorectal surgery because of his dilated stump that is not draining from his rectum and is not connected to his ostomy. I had an interactive discussion with Dr. Lopez as well as with Dr. linton with colorectal surgery at where patients care has been. They advised that they do not feel the patient is a surgical candidate at all and that this is not likely the source of sepsis. They advise its likely mucus and that the patient would benefit from salvage measures such as digital rectal exam to decompress versus flex sigmoidoscopy to decompress. They will not accept the patient for transfer given that he is not a surgical candidate with no surgical emergency. Patient care signed to the oncoming provider, Dr. Mccurdy, pending discussion with GI for potential flex sig for further management and dispo. Stanley Mccurdy:: Upon assumption of care patient was hemodynamically stable. Patient has metabolic derangement that is being repleted, is septic on broad- spectrum antibiotics. I had prolonged discussion with patient at bedside after discussing the case with GI. Given extensive rectal mass and the fact that he is not a surgical candidate and that this fluid collection will reaccumulate it is not causing him significant left-sided Freddy abdominal pain rather he has deep pelvic pain from his mass that is causing him to not be able to function with his activities of daily living. He reportedly has a bed for him in the assisted living side of [facility] this coming week however I do not think patient will be able to operate independently on assisted living. Discussed case with Dr. Albarran regarding management, he does not think that a stent at this time will have any meaningful improvement in patient outcome and is difficult to determine how acute this fluid collection has happened. Given this goals of care discussion was had at bedside and patient wishes to proceed with hospice from a rectal adenocarcinoma standpoint however his metabolic derangements such as his hypokalemia and his sepsis which is either from translocation of bacteria from his colon or urinary tract infection will be attempted to be treated with broad-spectrum antibiotics. The case is discussed with hospital medicine regarding management they will admit the patient to their service for continued evaluation at this time and hospice evaluation. Critical Care <Mounika Springer, DO - Last Filed: 02/17/25 16:36> Critical Care Time Critical Care Time: Yes Attestation: On 02/17/25, the high probability of a clinically significant, sudden or life threatening deterioration of the following system(s) required my full and direct attention, intervention and personal management. The time I documented below is in addition to time spent performing reported procedures but includes the following listed in this critical care notation. Total Time Total Critical Care Time: 50
[2025-02-17 10:23] LABS: Potassium 2.3 mmoL/L (3.5-5.1)
--- NOTE | 2025-02-17 10:23 | PC.NURSE ---
CRITICAL K+ 2.3, PT NAME AND R/V. DR JANSEN NOTIFIED
[2025-02-17 10:24] LABS: Activated Partial Thrombo Time 30.8 seconds (22.8-30.6); INR 0.96 (0.9-1.1); Prothrombin Time 10.8 seconds (10.1-12.5)
[2025-02-17 10:27] LABS: C-Reactive Protein 226.9 mg/L (0-4)
[2025-02-17 10:33] LABS: NT Pro Brain Natriuretic Pep. 211 pg/mL (0-125)
[2025-02-17 10:36] LABS: Troponin I < 0.01 ng/ml (0.00-0.034)
[2025-02-17 10:36] LABS: Influenza A, PCR Not Detected (NotDetected); Influenza B, PCR Not Detected (NotDetected)
--- NOTE | 2025-02-17 10:36 | ECG_ITS ---
APPROVED REPORT Exam: Resting ECG HR:107 bpm ECG Measurements Heart Rate 107 AXES FL 162 P 74 QRSd 94 QRS 71 QT 342 T 79 QTc 405 Conclusion SINUS TACHYCARDIA WITH OCCASIONAL VENTRICULAR PREMATURE COMPLEXES ABNORMAL RHYTHM ECG UNCONFIRMED REPORT Electronically signed by : Jair Schwarz MD 02/18/2025 09:56:49
[2025-02-17 10:41] LABS: T4 (Thyroxine) 11.4 ug/dl (5.53-11.0)
[2025-02-17] MEDS: KCl 20mEq/100ml 100 ML 50 MEQ IV ×2 (10:46→13:03)
[2025-02-17 10:54] LABS: Thyroid Stimulating Hormone 3.42 uIU/mL (0.465-4.68)
[2025-02-17] MEDS: LIDOCAINE 2% JELLY 5ML TUBE 5 ML TP (10:58)
[2025-02-17 11:03] LABS: D-Dimer 1.38 ug/mL (0.0-0.5)
[2025-02-17] MEDS: PIPERACILLIN/TAZO 3.375 GM in 0.9 % SODIUM CHLORIDE 50 ML IV (11:07)
[2025-02-17] MEDS: ACETAMINOPHEN 1,000MG/100ML VIAL 1000 MG IV (11:19)
[2025-02-17] MEDS: ONDANSETRON 4MG/2ML VIAL 4 MG IV (11:19)
--- NOTE | 2025-02-17 11:22 | CT_ITS ---
FINAL REPORT TECHNIQUE: IV contrast enhanced exam This study was performed with techniques to keep radiation doses as low as reasonably achievable, (ALARA). Individualized dose reduction techniques using automated exposure control or adjustment of mA and/or kV according to the patient''s size were employed. CLINICAL HISTORY: diff placing matt, sepsis, UTI COMPARISON: 09/29/2024 FINDINGS: Abdomen: No acute density is seen within the lung bases. There are bilateral renal cysts, likely a combination of simple and complex cysts. There is mild right hydronephrosis, new from prior. There is no left-sided hydronephrosis. Remaining solid organs are unremarkable. Patient is status postcholecystectomy. There is a right sided colostomy of the transverse colon. There is severe dilatation of the transverse and left colon beyond the colostomy. Dilated transverse colon is distended with liquid stool measuring up to 8 cm. Pelvis: The appendix is normal. Dilated rectosigmoid colon measures up to 6.2 cm. There is trace free fluid. There is progression of cystic and soft tissue pelvic mass arising from the distal rectum. The mass contains air centrally compatible with necrosis, secondary infection or communication with bowel or bladder lumen not excluded. The mass is noted to further encase and invade the prostate and bladder. Pelvic mass measures approximately 13.2 x 8 cm, previously 9.8 x 6.9 cm. This would also account for distal colonic obstruction. There is an exophytic component of tumor within the gluteal cleft. Tumor has progressed within the right ischial rectal fossa. IMPRESSION: Interval progression of pelvic mass arising from the rectum causing distal colonic obstruction with further invasion of the prostate and bladder. Reviewed, Interpreted and Dictated by Lorena Ritchie MD Transcribed by Kaitlyn Malone Authenticated and . [facility]
--- NOTE | 2025-02-17 11:22 | CT_ITS ---
FINAL REPORT TECHNIQUE: Thin section axial CT with contrast with multiplanar reconstruction. This study was performed with techniques to keep radiation doses as low as reasonably achievable, (ALARA). Individualized dose reduction techniques using automated exposure control or adjustment of mA and/or kV according to the patient''s size were employed. CLINICAL HISTORY: elevated dimer, sepsis, SOA FINDINGS: Pulmonary vessels enhance in normal fashion without evidence of embolism. Thoracic aorta shows no dissection or aneurysm. No pulmonary mass or infiltrate is present. Emphysema is noted. There is no significant pleural effusion. There is no significant pericardial effusion. No mediastinal or hilar adenopathy is present. IMPRESSION: 1. No evidence of pulmonary embolism Reviewed, Interpreted and Dictated by Lorena Ritchie MD Transcribed by Clarice Frost Authenticated and [facility]
[2025-02-17 11:24] LABS: Coronavirus 19, PCR Detected (NotDetected)
[2025-02-17] MEDS: IOPAMIDOL-370 (76%);100ML BOTTLE 75 ML IV (11:37)
[2025-02-17] MEDS: SODIUM CHLORIDE 0.9% 10ML SYR (RAD ONLY) 10 ML IV (11:37)
[2025-02-17] MEDS: 0.9 % SODIUM CHLORIDE 50 ML VIAL IV (11:37)
--- NOTE | 2025-02-17 11:49 | PC.NURSE ---
In place catheter was removed. Tubing of catheter was bloody with Tip of catheter baltazar and black with obvious growth. Penis was tender to touch with cloudy mucus and blood. New 16Fr matt catheterization was initiated with no return of urine. Patient grimaced in pain. Tubing was flushed with no return of normal saline. Catheter was pulled and tubing was full of blood clots and purrulent mucus. Urojet lidocaine was injected and let to set for 3-5 minutes while new sterile catheter tray was received. 18fr coude catheter used for second insertion. Catheter placed with patient pain, but without any return of urine. Patient states that his old catheter had been draining very slow. Coude catheter left in place and constult with urology has been requested. Dr. Springer notified throughout attempts of insertion and extraction.
--- NOTE | 2025-02-17 12:07 | PC.NURSE ---
I rounded on the pt. no new complaints at this time. no needs voiced. call carpenter in reach.
--- NOTE | 2025-02-17 12:08 | PC.NURSE ---
Requested resp. start the sodium neb to induce production of sputum.
--- NOTE | 2025-02-17 12:17 | PC.NURSE ---
CARE MANAGEMENT NOTIFIED OF CONSULT FOR PLACEMENT
[2025-02-17] MEDS: IPRATROPIUM/ALBUTEROL 3 ML NEB IH (12:22)
[2025-02-17] MEDS: SODIUM CHLORIDE 3% 15ML NEB 3 ML IH (12:23)
[2025-02-17] MEDS: 0.9 % SODIUM CHLORIDE 1000ML 1,640 ML 820 ML IV (12:26)
[2025-02-17] MEDS: VANCOMYCIN HCL 1,000 MG in 0.9 % SODIUM CHLORIDE 250 ML 125 MG IV (12:26)
[2025-02-17 12:28] LABS: Lymphocytes % 8 % (10-50); Monocytes % 4 % (2-9); Neutrophils % 88 % (42-76); Total Cells Counted 100
[2025-02-17 12:29] LABS: Hypochromasia 1+; Platelet Estimate Normal
[2025-02-17 12:30] LABS: Microscopic, Urine URINE MICROSCOPIC (MICROSCOPIC)
[2025-02-17 12:34] LABS: Appearance,Urine CLOUDY (Clear); Bilirubin,Urine Negative (Negative); Blood, Urine 3+ (Negative); Color,Urine RED (Yellow); Glucose,Urine (UA) Negative (Negative); Ketones,Urine Negative (Negative); Leukocyte Esterase,Urine 2+ (Negative); Nitrate,Urine Negative (Negative); PH,Urine 5.5 (5.0-8.5); Protein,Urine 2+ (Negative); Specific Gravity, Urine 1.015 (1.005-1.030); Urobilinogen,Urine 0.2 EU/dl (0.2)
[2025-02-17 12:43] LABS: Bacteria,Urine Trace /lpf; RBC,Urine TNTC #/hpf (0-3); Squamous Epithelial Cell,Urine Occasional #/hpf (0-5); WBC,Urine TNTC #/hpf (0-3)
[2025-02-17 13:21] LABS: Troponin I < 0.01 ng/ml (0.00-0.034)
--- NOTE | 2025-02-17 13:39 | PC.NURSE ---
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
[2025-02-17 14:06] LABS: Reflex Lactic Add Lactic Reflex
--- NOTE | 2025-02-17 14:27 | PC.NURSE ---
SPEAKING WITH AT THIS TIME TO INITIATE A TRANSFER
[2025-02-17 14:30] LABS: Lactic Acid Follow Up (RFLX 1) 1.3 mmol/L (0.7-2.1)
--- NOTE | 2025-02-17 15:19 | PC.NURSE ---
Vanc and potassium finished. fluids bag empty started new bag.
--- NOTE | 2025-02-17 15:45 | PC.NURSE ---
[facility] declines admission
--- NOTE | 2025-02-17 15:51 | PC.NURSE ---
speaking with transfer center. is requesting to speak with . I spoke with Salomon at the transfer center who states they will give us a call back.
--- NOTE | 2025-02-17 17:16 | PC.NURSE ---
HOUSE AWARE OF ADMISSION
--- NOTE | 2025-02-17 17:40 | P.HP_ITS ---
[facility] Disclaimer: The information contained in this section may have been updated after the patient was seen, as this information can be updated by other users. Medical History History of elevated PSA Rectal cancer Abscess of rectum Acute lower gastrointestinal bleeding Pelvic lymphadenopathy Colon wall thickening Urinary tract infection Hypertension Gout Cholecystectomy planned Colostomy in place Colostomy present on admission Leukocytosis Urinary retention Surgical History History of colon resection COPD (chronic obstructive pulmonary disease) Social History Smoking Status: Never smoker smoking status stop date: 2007 alcohol intake: never substance use type: denies use current occupational status: retired Travel in the last 8 weeks: None household members: none housing: house caffeine: No Have you lived/traveled outside [place] in past 30 days?: No Contact w/someone who lives/traveled outside US past 30 days?: No Exposure to someone with infectious disease in past 14 days?: No Do you have a fever (greater than 100.4 F or 38 C)?: No Have you tested positive for COVID-19: No Exposed to someone with COVID-19 in past 14 days?: No Do you have a sore throat?: No Do you have a cough?: No Do you have any weakness?: Yes Do you have any diarrhea?: No Are you experiencing any unusual bleeding?: No Do you have any muscle aches/pain?: No Do you have any abdominal pain?: No Are you experiencing loss of taste or smell?: No Other Medical History Have you received the Flu Vaccine for this season: No Have you received the Pneumonia Vaccine: No Meds Home Medications and Allergies Home Medications ?Medication ?Instructions ?Recorded ?Confirmed ?Type lisinopril 20 mg tablet 20 mg PO DAILY 04/27/19 01/17/25 History omeprazole 20 mg capsule,delayed 20 mg PO DAILY 04/27/19 01/17/25 History release simvastatin 40 mg tablet 40 mg PO HS 04/27/19 01/17/25 History theophylline 300 mg 300 mg PO DAILY 04/27/19 01/17/25 History tablet,extended release,12 hr tamsulosin 0.4 mg capsule 0.8 mg PO DAILY 09/29/24 01/17/25 History carvedilol 25 mg tablet 25 mg PO DAILY 10/04/24 01/17/25 History potassium chloride 20 mEq 20 meq PO DAILY 10/04/24 01/17/25 History tablet,extended release furosemide 20 mg tablet 20 mg PO DAILY #90 tabs 12/21/24 01/17/25 Rx levofloxacin 750 mg tablet 750 mg PO DAILY 10 days #10 tabs 01/18/25 Rx cefdinir 300 mg capsule 300 mg PO BID 7 days #14 caps 02/14/25 Rx New Prescriptions to Start Prescriptions: Allergies Allergy/AdvReac Type Severity Reaction Status Date / Time No Known Allergies Allergy Verified 01/17/25 13:12 Exam Data for Last 24 hours Vital signs and Labs for Last 24 Hours: Temp Pulse Resp BP Pulse Ox O2 Del Method 98.4 F 61 18 172/57 H 98 Room Air 02/17/25 09:56 02/17/25 17:30 02/17/25 17:30 02/17/25 17:30 02/17/25 17:30 02/17/25 17:00 Laboratory Results - last 24 hr 02/17/25 09:58: WBC 17.3 H, RBC 4.40 L, Hgb 9.9 L, Hct 31.7 L, MCV 72.0 L, MCH 22.5 L, MCHC 31.2 L, RDW 15.4, Plt Count 329, MPV 9.2, Neut % (Auto) 87.0 H, Ly mph % (Auto) 8.5 L, [place] % (Auto) 3.7, Eos % (Auto) 0.1, Baso % (Auto) 0.1, Neut # (Auto) 15.1 H, Lymph # (Auto) 1.5, [place] # (Auto) 0.6, Eos # (Auto) 0.0, Baso # (Auto) 0.0, Total Counted 100, Neutrophils % (Manual) 88 H, Lymphocytes % (Manual) 8 L, Monocytes % (Manual) 4, Platelet Estimate Normal, RBC Morphology Not Reportable, Hypochromasia 1+, PT 10.8, INR 0.96, APTT 30.8 H, D-Dimer 1.38 H , Sodium 134 L, Potassium 2.3 L*, Chloride 100, Carbon Dioxide 22, Anion Gap 14.3, BUN 31 H, Creatinine 1.20, Estimated Creat Clear 39, Estimated GFR 60, Est GFR ( Amer) 72, Glucose 128 H, Lactate 2.6 H, Calcium 9.7, Phosphorus 2.4 L, Magnesium 1.8, Total Bilirubin 0.6, AST 25, ALT 18, Alkaline Phosphatase 145 H, Troponin I < 0.01, C-Reactive Protein 226.9 H, NT-Pro-B Natriuret Pep 211 H, Total Protein 7.4, Albumin 3.4 L, Globulin 4.0 H, Albumin/Globulin Ratio 0.9 L, TSH 3.42, Thyroxine (T4) 11.4 H 02/17/25 10:31: SARS-CoV-2 (PCR) Detected A, Influenza A Untype (PCR) Not detected, Influenza Type B (PCR) Not detected 02/17/25 12:22: Urine Color Red, Urine Appearance Cloudy, Urine pH 5.5, Ur Speci fic [place] 1.015, Urine Protein 2+ A, Urine Glucose (UA) Negative, Urine Ketones Negative, Urine Blood 3+ A, Urine Nitrate Negative, Urine Bilirubin Nega tive, Urine Urobilinogen 0.2, Ur Leukocyte Esterase 2+ A, Urine RBC Tntc, Urine WBC Tntc, Ur Squamous Epith Cells Occasional, Urine Bacteria Trace 02/17/25 12:50: Troponin I < 0.01 02/17/25 14:16: Lactate 1.3 I & O for Last 24 hours: Intake & Output 02/14/25 02/15/25 02/16/25 02/17/25 23:59 23:59 23:59 23:59 Weight 49.895 kg
[2025-02-17] MEDS: PIPERCILLIN/TAZO 3.375 GM in 0.9 % SODIUM CHLORIDE 50 ML IV ×2 (17:57→23:14)
--- NOTE | 2025-02-17 18:03 | PC.NURSE ---
Report called to Malia [facility]ABT[facility]
[2025-02-17] MEDS: PANTOPRAZOLE 40MG TABLET 40 MG PO (20:36)
--- NOTE | 2025-02-17 20:59 | EXP.HP ---
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 States that he is just felt generally poor over the last several days. Reports increased lightheadedness and weakness for the last several days. States that he was treated for strep throat and has completed his course of antibiotics. Also reports prior history of urinary tract infection. Endorses poor p.o. intake. Denies any changes in his ostomy output. Does have an existing Rodriguez on admission. Emergency department workup notable for COVID-positive. Further workup obtained and notable for white blood cell count of 17, potassium of 2.3, phosphorus of 2.4, elevated CRP,. Imaging obtained and notable for significant change in abdominal mass/colon with possible with fistula. Concerns for dilated colon with acute infection. Patient initially felt would be to surgically complicated to this facility so transfer to was entertained. After ED conversation with colorectal surgery they felt that the patient would not be a surgical candidate at this time given progression of disease. It felt he would benefit from admission to local hospital with antibiotic therapy for sepsis. After interactive conversation with the patient patient is okay with entertain the idea of hospice knowing that his disease has progressed and likely not reversible. He currently is not in any discomfort. Denies any abdominal pain or rectal pain. Given this, he is admitted to the hospital service at this time. [facility] Disclaimer: The information contained in this section may have been updated after the patient was seen, as this information can be updated by other users. Medical History History of elevated PSA Rectal cancer Abscess of rectum Acute lower gastrointestinal bleeding Pelvic lymphadenopathy Colon wall thickening Urinary tract infection Hypertension Gout Cholecystectomy planned Colostomy in place Colostomy present on admission Leukocytosis Urinary retention Surgical History History of colon resection COPD (chronic obstructive pulmonary disease) Social History (Updated 02/17/25 @ 21:19 by Rosa Lorenzana RN) Smoking Status: Former smoker tobacco type: cigarettes smoking status stop date: 2007 alcohol intake: never substance use type: denies use current occupational status: retired Travel in the last 8 weeks: None household members: none housing: house caffeine: No Have you lived/traveled outside US in past 30 days?: No Contact w/someone who lives/traveled outside US past 30 days?: No Exposure to someone with infectious disease in past 14 days?: No Do you have a fever (greater than 100.4 F or 38 C)?: No Have you tested positive for COVID-19: No Exposed to someone with COVID-19 in past 14 days?: No Do you have a sore throat?: No Do you have a cough?: No Do you have any weakness?: Yes Do you have any diarrhea?: No Are you experiencing any unusual bleeding?: No Do you have any muscle aches/pain?: No Do you have any abdominal pain?: No Are you experiencing loss of taste or smell?: No Other Medical History Have you received the Flu Vaccine for this season: No Have you received the Pneumonia Vaccine: No Review of Systems Review of Systems Review of systems:: pertinent systems reviewed and negative unless documented below Review of systems (narrative): Negative except for HPI Meds Home Medications and Allergies Home Medications ?Medication ?Instructions ?Recorded ?Confirmed ?Type lisinopril 20 mg tablet 20 mg PO DAILY 04/27/19 02/18/25 History omeprazole 20 mg capsule,delayed 20 mg PO DAILY 04/27/19 02/18/25 History release simvastatin 40 mg tablet 40 mg PO HS 04/27/19 02/18/25 History theophylline 300 mg 300 mg PO DAILY 04/27/19 02/18/25 History tablet,extended release,12 hr tamsulosin 0.4 mg capsule 0.8 mg PO HS 09/29/24 02/18/25 History carvedilol 25 mg tablet 25 mg PO DAILY 10/04/24 02/18/25 History potassium chloride 20 mEq 20 meq PO DAILY 10/04/24 02/18/25 History tablet,extended release furosemide 20 mg tablet 20 mg PO DAILY #90 tabs 12/21/24 02/18/25 Rx cefdinir 300 mg capsule 300 mg PO BID 7 days #14 caps 02/14/25 02/18/25 Rx New Prescriptions to Start Prescriptions: Allergies Allergy/AdvReac Type Severity Reaction Status Date / Time No Known Allergies Allergy Verified 02/17/25 23:36 Exam Data for Last 24 hours Vital signs and Labs for Last 24 Hours: Temp Pulse Resp BP Pulse Ox O2 Del Method 98.4 F 90 17 150/65 H 93 L Room Air 02/17/25 19:19 02/17/25 19:19 02/17/25 19:19 02/17/25 19:19 02/17/25 19:19 02/17/25 19:19 Laboratory Results - last 24 hr 02/17/25 09:58: WBC 17.3 H, RBC 4.40 L, Hgb 9.9 L, Hct 31.7 L, MCV 72.0 L, MCH 22.5 L, MCHC 31.2 L, RDW 15.4, Plt Count 329, MPV 9.2, Neut % (Auto) 87.0 H, Lymph % (Auto) 8.5 L, [place] % (Auto) 3.7, Eos % (Auto) 0.1, Baso % (Auto) 0.1, Neut # (Auto) 15.1 H, Lymph # (Auto) 1.5, [place] # (Auto) 0.6, Eos # (Auto) 0.0, Baso # (Auto) 0.0, Total Counted 100, Neutrophils % (Manual) 88 H, Lymphocytes % (Manual) 8 L, Monocytes % (Manual) 4, Platelet Estimate Normal, RBC Morphology Not Reportable, Hypochromasia 1+, PT 10.8, INR 0.96, APTT 30.8 H, D-Dimer 1.38 H, Sodium 134 L, Potassium 2.3 L*, Chloride 100, Carbon Dioxide 22, Anion Gap 14.3, BUN 31 H, Creatinine 1.20, Estimated Creat Clear 39, Estimated GFR 60, Est GFR ( Amer) 72, Glucose 128 H, Lactate 2.6 H, Calcium 9.7, Phosphorus 2.4 L, Magnesium 1.8, Total Bilirubin 0.6, AST 25, ALT 18, Alkaline Phosphatase 145 H, Troponin I < 0.01, C-Reactive Protein 226.9 H, NT-Pro-B Natriuret Pep 211 H, Total Protein 7.4, Albumin 3.4 L, Globulin 4.0 H, Albumin/Globulin Ratio 0.9 L, TSH 3.42, Thyroxine (T4) 11.4 H 02/17/25 10:31: SARS-CoV-2 (PCR) Detected A, Influenza A Untype (PCR) Not detected, Influenza Type B (PCR) Not detected 02/17/25 12:22: Urine Color Red, Urine Appearance Cloudy, Urine pH 5.5, Ur Specific [place] 1.015, Urine Protein 2+ A, Urine Glucose (UA) Negative, Urine Ketones Negative, Urine Blood 3+ A, Urine Nitrate Negative, Urine Bilirubin Negative, Urine Urobilinogen 0.2, Ur Leukocyte Esterase 2+ A, Urine RBC Tntc, Urine WBC Tntc, Ur Squamous Epith Cells Occasional, Urine Bacteria Trace 02/17/25 12:50: Troponin I < 0.01 02/17/25 14:16: Lactate 1.3 I & O for Last 24 hours: Intake & Output 02/14/25 02/15/25 02/16/25 02/17/25 23:59 23:59 23:59 23:59 Weight 52.027 kg Constitutional Constitutional: no acute distress *Routine HEENT Exam Head: Present normocephalic Eye: Present EOMI and PERRL ENT: Present mucous membranes moist *Routine Neck Exam Neck: Present supple; Absent lymphadenopathy *Routine Respiratory Exam Respiratory: Present CTA bilaterally *Routine Cardiovascular Exam Cardiovascular: Present RRR *Routine Abdominal Exam Abdominal: Present soft, normoactive bowel sounds, ostomy and other (Rodriguez catheter in place draining dark yellow urine); Absent tenderness Comments: With liquid output, stoma pink and patent *Routine Rectal Exam Rectal:: deferred *Routine Genitalia Exam Genitalia:: deferred *Routine Extremities Exam Extremities: Absent cyanosis, clubbing or edema *Routine Skin Exam Skin: Present warm; Absent rash *Routine Neurological Exam Neurological: Present alert and oriented X3 Assessment and Plan *Assessment and plan (1) COVID-19: Status: Acute Category: Medical Code(s): U07.1 - COVID-19 (2) Sepsis: Status: Acute Category: Medical Code(s): A41.9 - Sepsis, unspecified organism (3) Adenocarcinoma of rectum: Status: Acute Category: Medical Code(s): C20 - Malignant neoplasm of rectum (4) Dilatation of colon: Status: Acute Category: Medical Code(s): K59.39 - Other megacolon (5) [place]-vesical fistula: Status: Acute Category: Medical Code(s): N32.1 - Vesicointestinal fistula (6) Hypokalemia: Status: Acute Category: Medical Code(s): E87.6 - Hypokalemia (7) Rodriguez catheter in place on admission: Status: Acute Category: Medical Code(s): Z97.8 - Presence of other specified devices Plan 74-year-old who presented with sepsis. After much discussion with the ER, decision to admit made by medicine to consult hospice. ER attempted to transfer to higher level of care. As there is no operative or curative measures for his cancer and progressive disease, patient would like to pursue hospice. Initiated on antibiotics. Problems addressed as follows: #Sepsis without septic shock Meets criteria for leukocytosis and tachycardia. Possible urinalysis as source given chronic Rodriguez catheter. Also has dilated colon, cannot rule out colon infection Vital signs stable at this time Follow-up urine culture Follow-up blood culture Continue vancomycin and Zosyn #COVID-19 #Generalized weakness Other than generalized weakness, asymptomatic on room air. Will defer COVID directed therapies at this time Monitor oxygen saturation #Adenocarcinoma of the rectum #Dilation of the colon #Colovesicular fistula Complicated surgical candidate but per [facility], does not meet surgical criteria at this time. Likely benefit from salvage MIKAYLA or flex sigmoidoscopy for decompression. After speaking with patient, he states that he is open to the idea of hospice understanding his disease progression. Continue pain control if needed. Abdomen benign at this time. Denies pain. Hospice consult in a.m Monitor ostomy output Per my review of CT, has large distended up to 9 cm distal bowel that has worsened over the past 6 months. Large mass and rectum that fills the majority of pelvis. #Rodriguez catheter in place on admission Urinalysis with leuk esterase and too numerous to count white blood cells. Continue antibiotic therapy as above #Hypertension Continue home medications
--- NOTE | 2025-02-18 03:30 | PC.NURSE ---
Pt. was admitted to med/surg at chage of shift. Pt. admitted with urosepsis, rectal adenocarcinoma . Pt. is OCVID positive. He is also a DRN. Pt. ia alert and orientated x 4. Pt. is on room air. ED was attempting to transfer pt. to for urology services but no beds were available. Pt has a colostomy with moderate output. colostomy was leaking and was changed. to new bag. Pt. has a matt cath in place . The catheter was changed in the ED. Previous Matt cath had been in since November. Per ED staff it was dirty and pt. has UTI per labs. urine output cloudy. Pt. getting IV antibiotics. Pt. initially came to ED for generalized weakness, fatigue, unable to walk and take care of self. had strep throat one week ago. has had poor intake. Pt. lives by self with some family help. Pt. states that he is supposed to be admitted to [place] . There is a hospice consult in for this patient. Pt. denies any pain at this time, just feels weak. VSS. Personal items and call carpenter in reach.
[2025-02-18 04:00] VITALS: BP 135/59; PULSE 99; RESP 18; TEMP 36.3; O2SAT 97; BMI 21.3
[2025-02-18] MEDS: PIPERCILLIN/TAZO 3.375 GM in 0.9 % SODIUM CHLORIDE 50 ML IV ×4 (05:34→23:20)
[2025-02-18 07:59] VITALS: BP 152/69; PULSE 109; RESP 18; TEMP 36.7; O2SAT 96
[2025-02-18] MEDS: POTASSIUM CHLORIDE 20MEQ TAB 40 MEQ PO ×2 (09:17→12:02)
[2025-02-18] MEDS: LISINOPRIL 20MG TABLET 20 MG PO (09:17)
--- NOTE | 2025-02-18 09:28 | P.CONPHA_ITS ---
Pharmacy Consult Date: 02/18/25 Time: 09:29 Referring provider: DR MARQUEZ Reason for Consult:: VANCOMYCIN DOSING CONSULT Allergies Allergy/AdvReac Type Severity Reaction Status Date / Time No Known Allergies Allergy Verified 02/17/25 23:36 Home Medications ?Medication ?Instructions ?Recorded ?Confirmed ?Type lisinopril 20 mg tablet 20 mg PO DAILY 04/27/19 02/17/25 History omeprazole 20 mg capsule,delayed 20 mg PO DAILY 04/27/19 02/17/25 History release simvastatin 40 mg tablet 40 mg PO HS 04/27/19 02/17/25 History theophylline 300 mg 300 mg PO DAILY 04/27/19 02/17/25 History tablet,extended release,12 hr tamsulosin 0.4 mg capsule 0.8 mg PO DAILY 09/29/24 02/17/25 History carvedilol 25 mg tablet 25 mg PO DAILY 10/04/24 02/17/25 History potassium chloride 20 mEq 20 meq PO DAILY 10/04/24 02/17/25 History tablet,extended release furosemide 20 mg tablet 20 mg PO DAILY #90 tabs 12/21/24 02/17/25 Rx cefdinir 300 mg capsule 300 mg PO BID 7 days #14 caps 02/14/25 02/17/25 Rx New Prescriptions to Start Prescriptions: Height: 1.57 m Weight: 52.617 kg Laboratory Results:: Laboratory Results - last 24 hr 02/17/25 09:58: WBC 17.3 H, RBC 4.40 L, Hgb 9.9 L, Hct 31.7 L, MCV 72.0 L, MCH 22.5 L, MCHC 31.2 L, RDW 15.4, Plt Count 329, MPV 9.2, Neut % (Auto) 87.0 H, Lymph % (Auto) 8.5 L, [place] % (Auto) 3.7, Eos % (Auto) 0.1, Baso % (Auto) 0.1, Neut # (Auto) 15.1 H, Lymph # (Auto) 1.5, [place] # (Auto) 0.6, Eos # (Auto) 0.0, Baso # (Auto) 0.0, Total Counted 100, Neutrophils % (Manual) 88 H, Lymphocytes % (Manual) 8 L, Monocytes % (Manual) 4, Platelet Estimate Normal, RBC Morphology Not Reportable, Hypochromasia 1+, PT 10.8, INR 0.96, APTT 30.8 H, D-Dimer 1.38 H , Sodium 134 L, Potassium 2.3 L*, Chloride 100, Carbon Dioxide 22, Anion Gap 14.3, BUN 31 H, Creatinine 1.20, Estimated Creat Clear 39, Estimated GFR 60, Est GFR ( Amer) 72, Glucose 128 H, Lactate 2.6 H, Calcium 9.7, Phosphorus 2.4 L, Magnesium 1.8, Total Bilirubin 0.6, AST 25, ALT 18, Alkaline Phosphatase 145 H, Troponin I < 0.01, C-Reactive Protein 226.9 H, NT-Pro-B Natriuret Pep 211 H, Total Protein 7.4, Albumin 3.4 L, Globulin 4.0 H, Albumin/Globulin Ratio 0.9 L, TSH 3.42, Thyroxine (T4) 11.4 H 02/17/25 10:31: SARS-CoV-2 (PCR) Detected A, Influenza A Untype (PCR) Not detected, Influenza Type B (PCR) Not detected 02/17/25 12:22: Urine Color Red, Urine Appearance Cloudy, Urine pH 5.5, Ur Specific [place] 1.015, Urine Protein 2+ A, Urine Glucose (UA) Negative, Urine Ketones Negative, Urine Blood 3+ A, Urine Nitrate Negative, Urine Bilirubin Negative, Urine Urobilinogen 0.2, Ur Leukocyte Esterase 2+ A, Urine RBC Tntc, Urine WBC Tntc, Ur Squamous Epith Cells Occasional, Urine Bacteria Trace 02/17/25 12:50: Troponin I < 0.01 02/17/25 14:16: Lactate 1.3 Medical History: Medical History (Updated 02/17/25 @ 21:07 by JANA Melendez) History of elevated PSA Rectal cancer Abscess of rectum Acute lower gastrointestinal bleeding Pelvic lymphadenopathy Colon wall thickening Urinary tract infection Hypertension Gout Cholecystectomy planned Colostomy in place Colostomy present on admission Leukocytosis Urinary retention Assessment and Plan Assessment and plan all Dx Assessment and Plan for all problems:: Pharmacokinetic dosing service Objective: Age: 74 yo Serum creatinine: 1.2 mg/dL Height: 61.8 Inches Weight (kg): 52.617 Diagnosis: SEPSIS Assessment: IBW (kg): 54.14 Dosing wt(kg): 52.617 Estimated Creatinine clearance (ml/min): 41.4 CRCL method: Cockcroft and Gault using ibw(default). Drug selected: Vancomycin Loading dose (mg): Vd (liters): 36.8 (factor used: 0.7 L/kg) Xavier (hr-1): 0.039 Half life (hrs): 17.77 CLvanco=?? 1.435 L/hr Recommended dose: 750 mg Interval: 24 hrs Infusion time (hrs): 2.0 Predicted peak (mcg/mL): 32.3 Predicted trough (mcg/mL): 13.70 Total body weight is being used for vancomycin dosing. Recommendations: Give Vancomycin 750 mg q 24 hrs with an expected Cpeak of 32.3 mcg/ml and an expected Ctrough of 13.70 mcg/ml AUC 0-24 /TONNY Data: TONNY 0.5 mcg/mL:?? AUC/TONNY:? 1045.3 TONNY 1.0 mcg/mL:?? AUC/TONNY:? 522.6 --------- TONNY 1.5 mcg/mL:?? AUC/TONNY:? 348.4 TONNY 2.0 mcg/mL:?? AUC/TONNY:? 261.3 Thank you for the consult
--- NOTE | 2025-02-18 10:20 | HMH.PHAINT1 ---
Pharmacy Intervention Comments: MEDICATION RECONCILIATION COMPLETE USING EXTERNAL PHARMACY FILL HISTORY AND MD OFFICE VISIT.
[2025-02-18 10:21] LABS: Basophils % 0.1 % (0.1-2.0); Hematocrit 24.7 % (42.0-52.0); Hemoglobin 7.7 g/dL (14.1-18.0); Lymphocytes # 0.9 K/mm3 (0.7-4.5); Lymphocytes % 9.2 % (10-50); Mean Corpuscular HGB Conc 31.2 g/dL (31.8-35.4); Mean Corpuscular Hemoglobin 22.6 pg (27.0-31.2); Mean Corpuscular Volume 72.6 fl (80-94); Mean Platelet Volume 9.3 fl (7.4-10.4); Monocytes # 0.4 K/mm3 (0.1-1.0); Monocytes % 3.9 % (1.7-9.3); Neutrophils # 8.8 K/mm3 (1.8-7.8); Neutrophils % 86.1 % (37.0-80.0); Platelet Count 246 K/mm3 (142-424); Red Cell Distribution Width 15.2 % (11.5-17.5); White Blood Count 10.2 K/mm3 (4.8-10.8)
[2025-02-18 10:26] LABS: Albumin Level 2.4 g/dl (3.5-5.0); Chloride 108 mmol/L (98-107)
[2025-02-18 10:27] LABS: Sodium 137 mmol/L (136-145)
[2025-02-18 10:29] LABS: Alanine Aminotransferase 8 U/L (12-78); Albumin/Globulin Ratio 0.8 (1.1-1.8); Alkaline Phosphatase 109 U/L (38-126); Anion Gap 8.2 mEq/L (5-15); Aspartate Amino Transferase 15 U/L (17-59); Bilirubin,Total 0.4 mg/dl (0.2-1.3); Blood Urea Nitrogen 14 mg/dl (9-20); Carbon Dioxide 23 mmol/L (22.0-30.0); Creatinine Clearance Estimated 50 mL/min (50-200); Estimated Glomerular Filt Rate 95 ml/min (>60); GFR (African American) 115 ML/MIN (>60); Globulin 3.1 g/dL (1.3-3.2); Total Protein,Serum 5.5 g/dl (6.3-8.2)
[2025-02-18 10:30] LABS: Calcium 8.1 mg/dl (8.4-10.2); Glucose 97 mg/dl (74-100)
[2025-02-18 10:40] LABS: Potassium 2.2 mmoL/L (3.5-5.1)
[2025-02-18] MEDS: VANCOMYCIN HCL 750 MG in 0.9 % SODIUM CHLORIDE 250 ML 125 MG IV (13:06)
--- NOTE | 2025-02-18 13:13 | EXP.ACUTE.PN ---
Subjective *Date: 02/18/25 *Time: 13:13 Interval history: Still feeling weak today but alert and oriented x 3. Remains afebrile. Urine clearing and catheter. No nausea or vomiting. Stable on room air. Agreeable to hospice consult. Medical Exam Vital signs and Labs for Last 24 Hours: Vital Signs Temp Pulse Pulse Resp BP BP Pulse Ox 02/18/25 10:05 02/18/25 09:00 02/18/25 08:00 02/18/25 07:59 98.1 F 109 H 18 152/69 H 96 02/18/25 07:00 02/18/25 05:00 02/18/25 04:00 97.3 F L 99 H 18 135/59 L 97 02/18/25 03:00 02/18/25 01:00 02/17/25 23:00 02/17/25 21:00 02/17/25 19:19 98.4 F 90 17 150/65 H 93 L 02/17/25 18:53 98.4 F 85 15 150/65 H 02/17/25 18:30 83 24 150/65 H 96 02/17/25 18:00 90 18 158/69 H 98 02/17/25 17:49 02/17/25 17:30 61 18 172/57 H 98 02/17/25 17:00 91 H 24 177/77 H 93 L 02/17/25 16:31 80 183/73 H 96 02/17/25 16:00 84 20 154/64 H 98 02/17/25 15:31 85 20 151/60 H 98 02/17/25 15:00 92 H 24 155/67 H 99 02/17/25 14:30 95 H 25 H 155/65 H 97 02/17/25 14:02 101 H 27 H 178/77 H 95 02/17/25 13:30 91 H 15 153/65 H 98 O2 Del Method 02/18/25 10:05 Room Air 02/18/25 09:00 Room Air 02/18/25 08:00 Room Air 02/18/25 07:59 Room Air 02/18/25 07:00 Room Air 02/18/25 05:00 Room Air 02/18/25 04:00 Room Air 02/18/25 03:00 Room Air 02/18/25 01:00 Room Air 02/17/25 23:00 Room Air 02/17/25 21:00 Room Air 02/17/25 19:19 Room Air 02/17/25 18:53 02/17/25 18:30 Room Air 02/17/25 18:00 Room Air 02/17/25 17:49 Room Air 02/17/25 17:30 02/17/25 17:00 Room Air 02/17/25 16:31 Room Air 02/17/25 16:00 Room Air 02/17/25 15:31 Room Air 02/17/25 15:00 Room Air 02/17/25 14:30 Room Air 02/17/25 14:02 Room Air 02/17/25 13:30 Room Air Intake and Output 02/17/25 02/18/25 02/18/25 23:59 07:59 15:59 Intake Total 790 / 1330 540 / 1330 Output Total 750 / 750 475 / 475 Balance -750 / 40 315 / 855 540 / 855 Intake: Intake, Oral Amount 240 / 480 240 / 480 Intake, Total IV Amount 550 / 850 300 / 850 KCl 20mEq/100ml 100 ml @ 50 mls 200 / 200 /hr IV Q2H [facility]OL[facility] Rx#:[id number] Pipercillin/Tazo 3.375 gm In 0. 100 / 150 50 / 150 9 % Sodium Chloride 50 ml @ 100 mls/hr IV Q6H [facility] Rx#:[id number] Vancomycin HCl 750 mg In 0.9 % 250 / 500 250 / 500 Sodium Chloride 250 ml @ 125 mls/hr IV Q24H [facility] Rx#:[id number] Output: Output, Urine Amount 750 / 750 475 / 475 Other: Number of Unmeasured Voids 0 0 Number of Bowel Movements 1 1 Weight 52.027 kg 52.617 kg 52.617 kg Patient Weight 02/18/25 23:59 Weight 52.617 kg Laboratory Results - last 24 hr 02/17/25 12:50: Troponin I < 0.01 02/17/25 14:16: Lactate 1.3 02/18/25 10:00: WBC 10.2 D, RBC 3.40 L, Hgb 7.7 L, Hct 24.7 L, MCV 72.6 L, MCH 22.6 L, MCHC 31.2 L, RDW 15.2, Plt Count 246 D, MPV 9.3, Neut % (Auto) 86.1 H, Lymph % (Auto) 9.2 L, [place] % (Auto) 3.9, Eos % (Auto) 0.0 L, Baso % (Auto) 0.1, Neut # (Auto) 8.8 H, Lymph # (Auto) 0.9, [place] # (Auto) 0.4, Eos # (Auto) 0.0, Baso # (Auto) 0.0, Sodium 137, Potassium 2.2 L*, Chloride 108 H, Carbon Dioxide 23, Anion Gap 8.2, BUN 14 D, Creatinine 0.80 D, Estimated Creat Clear 50, Estimated GFR 95, Est GFR ( Amer) 115 D, Glucose 97, Calcium 8.1 L, Total Bilirubin 0.4, AST 15 L D, ALT 8 L D, Alkaline Phosphatase 109, Total Protein 5.5 L D, Albumin 2.4 L D, Globulin 3.1, Albumin/Globulin Ratio 0.8 L I & O for Labs for Last 24 Hours: Intake & Output 02/15/25 02/16/25 02/17/25 02/18/25 23:59 23:59 23:59 23:59 Intake Total 1330 / 1330 Output Total 750 / 750 475 / 475 Balance -750 / 40 855 / 855 Weight 52.027 kg 52.617 kg Microbiology Reports for the Last 24 Hours: Microbiology 02/17/25 09:58 Blood Blood Culture - Preliminary NO GROWTH AFTER 24 HOURS 02/17/25 10:06 Blood Blood Culture - Preliminary NO GROWTH AFTER 24 HOURS Constitutional: Present no acute distress, cachectic, chronically ill appearing and cooperative Head: Present atraumatic and normocephalic ENT: Present normal exam Neck: Present normal inspection Respiratory: Present normal respiratory effort; Absent rhonchi, wheezes or crackles Cardiac: Present Reg Rate and Rhythm GI: Present soft, distention, tenderness (Nonfocal in left abdomen) and normal bowel sounds Comments:: Liquid stool output from ostomy Extremities: Present normal inspection and full ROM Skin: Present intact; Absent erythema Neuro: Present Grossly Intact, alert, awake, oriented x 3 and moves all extremities Assessment and Plan *Assessment and plan (1) Sepsis: Status: Acute Category: Medical Code(s): A41.9 - Sepsis, unspecified organism (2) COVID-19: Status: Acute Category: Medical Code(s): U07.1 - COVID-19 (3) Adenocarcinoma of rectum: Status: Acute Category: Medical Code(s): C20 - Malignant neoplasm of rectum (4) Dilatation of colon: Status: Acute Category: Medical Code(s): K59.39 - Other megacolon (5) [place]-vesical fistula: Status: Acute Category: Medical Code(s): N32.1 - Vesicointestinal fistula (6) Hypokalemia: Status: Acute Category: Medical Code(s): E87.6 - Hypokalemia (7) Rodriguez catheter in place on admission: Status: Acute Category: Medical Code(s): Z97.8 - Presence of other specified devices Plan 74-year-old male with advanced adenocarcinoma of the rectum. 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 Not a surgical candidate. Admitted for hospice eval and further management of his sepsis and electrolyte disturbances. Continues to require inpatient management. Was addressed as follows: #Sepsis without septic shock # COVID-19 Meets criteria for leukocytosis and tachycardia. Possible urinalysis as source given chronic Rodriguez catheter. Also has dilated colon, cannot rule out colon infection Continue broad-spectrum antibiotics with vancomycin and Zosyn 3.375 g every 6 hours. Awaiting urine and blood cultures. White count normal at 10.2 today. Hemoglobin 7.7. Stable on room air. No specific treatment for COVID at this time #Adenocarcinoma of the rectum #Dilation of the colon #Colovesicular fistula Complicated surgical candidate but per [facility], does not meet surgical criteria at this time. Likely benefit from salvage MIKAYLA or flex sigmoidoscopy for decompression. After speaking with patient, he states that he is open to the idea of hospice understanding his disease progression. Hospice consulted today. Referral made to nursing facility for admission under hospice care. Anticipate patient will be with us at least until Thursday. Hospice consult in a.m Monitor ostomy output Continue morphine 2 mg IV every 4 hours as needed for breakthrough pain. Monitor for toxicity. Continue pantoprazole 40 mg nightly Continue tamsulosin 0.8 mg nightly Continue home theophylline 300 mg daily I put: Replacing per protocol. Severely low this morning at 2.2. Repeat CBC, CMP, magnesium ordered for the morning DNR
--- NOTE | 2025-02-18 14:58 | PC.NURSE ---
Aox 4, up with assistance times 2, on RA, colostomy, f/c, 20g L AC SL, 20G L FA SL, regular diet, hospice now following, consult to CM, patient has a bed available at [facility].
[2025-02-18 16:00] VITALS: BP 141/57; PULSE 97; RESP 17; TEMP 36.8; O2SAT 97
[2025-02-18 20:00] VITALS: BP 147/52; PULSE 89; RESP 17; TEMP 36.7; O2SAT 94
[2025-02-18] MEDS: PANTOPRAZOLE 40MG TABLET 40 MG PO (20:53)
[2025-02-18] MEDS: TAMSULOSIN 0.4MG CAPSULE 0.8 MG PO (20:53)
[2025-02-19 01:37] VITALS: BP 131/56; PULSE 107; RESP 17; TEMP 36.4; O2SAT 96
[2025-02-19 04:00] VITALS: BP 143/59; PULSE 104; RESP 18; TEMP 36.4; O2SAT 95; BMI 21.3
--- NOTE | 2025-02-19 05:19 | PC.NURSE ---
Pt. is alert and orientated x 4. Pt. is on room air. Pt. was admitted for ureosepsis. Pt. also has rectal CA. Hospice was consulted yesterday per patient and family wishes. Pt. has been very pleasant. Denies any pain. Pt. getting IV antibiotics. Pt. also has a bed available at [facility]. Pt has been living alone and can no longer care for himself. Pt. has an indwelling urinary catheter. he has some cloudy urine output. Pt. also has a colostomy. bag intact and Pt. has some liquid stool output. Pt. slept well this sift. Personal items and call carpenter in reach.
[2025-02-19] MEDS: PIPERCILLIN/TAZO 3.375 GM in 0.9 % SODIUM CHLORIDE 50 ML IV ×4 (05:33→23:22)
[2025-02-19 07:59] LABS: Basophils % 0.2 % (0.1-2.0); Eosinophils % 0.1 % (0.1-12.0); Hematocrit 26.6 % (42.0-52.0); Lymphocytes # 1.2 K/mm3 (0.7-4.5); Lymphocytes % 10.9 % (10-50); Mean Corpuscular HGB Conc 30.1 g/dL (31.8-35.4); Mean Corpuscular Hemoglobin 22.6 pg (27.0-31.2); Mean Corpuscular Volume 75.1 fl (80-94); Mean Platelet Volume 9.2 fl (7.4-10.4); Monocytes # 0.4 K/mm3 (0.1-1.0); Neutrophils % 84.1 % (37.0-80.0); Platelet Count 240 K/mm3 (142-424); Red Blood Count 3.54 M/mm3 (4.60-6.20); Red Cell Distribution Width 15.2 % (11.5-17.5); White Blood Count 10.7 K/mm3 (4.8-10.8)
[2025-02-19 08:00] VITALS: BP 138/76; PULSE 107; RESP 15; TEMP 36.5; O2SAT 93
[2025-02-19 08:03] LABS: Albumin Level 2.5 g/dl (3.5-5.0); Chloride 108 mmol/L (98-107); Sodium 137 mmol/L (136-145)
[2025-02-19 08:05] LABS: Blood Urea Nitrogen 10 mg/dl (9-20); Creatinine Clearance Estimated 50 mL/min (50-200); Estimated Glomerular Filt Rate 132 ml/min (>60); GFR (African American) 160 ML/MIN (>60)
[2025-02-19 08:06] LABS: Alanine Aminotransferase 8 U/L (12-78); Alkaline Phosphatase 102 U/L (38-126); Aspartate Amino Transferase 19 U/L (17-59); Bilirubin,Total 0.5 mg/dl (0.2-1.3); Calcium 8.2 mg/dl (8.4-10.2); Carbon Dioxide 21 mmol/L (22.0-30.0); Glucose 121 mg/dl (74-100); Magnesium 1.6 mg/dl (1.6-2.3); Total Protein,Serum 5.8 g/dl (6.3-8.2)
[2025-02-19 08:08] LABS: Potassium 2.3 mmoL/L (3.5-5.1)
[2025-02-19 08:09] LABS: Albumin/Globulin Ratio 0.8 (1.1-1.8); Anion Gap 10.3 mEq/L (5-15); Globulin 3.3 g/dL (1.3-3.2)
[2025-02-19] MEDS: POTASSIUM CHLORIDE 20MEQ TAB 40 MEQ PO ×4 (09:00→16:12)
[2025-02-19] MEDS: MAGNESIUM SULFATE IN WATER 2 GM/50 ML PIGGYBACK IV ×2 (09:01→09:59)
[2025-02-19] MEDS: LISINOPRIL 20MG TABLET 20 MG PO (09:01)
--- NOTE | 2025-02-19 11:17 | P.PN_ITS ---
Subjective *Date: 02/19/25 *Time: 12:40 Interval history: Stable on room air this morning. Pain stable. White count normal at 9.7. Tolerating p.o. intake. Denies any fever overnight. Currently awaiting placement for hospice. Medical Exam Vital signs and Labs for Last 24 Hours: Vital Signs Temp Pulse Resp BP Pulse Ox O2 Del Method 02/19/25 09:51 Room Air 02/19/25 08:35 Room Air 02/19/25 08:00 97.7 F 107 H 15 138/76 93 L Room Air 02/19/25 07:45 Room Air 02/19/25 06:44 Room Air 02/19/25 05:00 Room Air 02/19/25 04:00 97.6 F 104 H 18 143/59 H 95 Room Air 02/19/25 03:00 Room Air 02/19/25 01:37 97.5 F L 107 H 17 131/56 L 96 Room Air 02/19/25 01:00 Room Air 02/18/25 23:00 Room Air 02/18/25 21:00 Room Air 02/18/25 20:00 Room Air 02/18/25 20:00 98.1 F 89 17 147/52 H 94 L Room Air 02/18/25 18:23 Room Air 02/18/25 16:00 98.3 F 97 H 17 141/57 H 97 Room Air 02/18/25 15:41 Room Air 02/18/25 14:38 Room Air Intake and Output 02/18/25 02/19/25 02/19/25 23:59 07:59 15:59 Intake Total 240 / 1860 50 / 290 240 / 290 Output Total 200 / 200 Balance 240 / 1085 -150 / 90 240 / 90 Intake: Intake, Oral Amount 240 / 960 240 / 240 Intake, Total IV Amount 50 / 50 Pipercillin/Tazo 3.375 gm In 0. 50 / 50 9 % Sodium Chloride 50 ml @ 100 mls/hr IV Q6H [facility] Rx#:[id number] Output: Output, Urine Amount 200 / 200 Other: Number of Unmeasured Voids 0 Number of Bowel Movements 1 1 Weight 52.617 kg Patient Weight 02/19/25 23:59 Weight 52.617 kg Laboratory Results - last 24 hr 02/19/25 07:42: WBC 10.7, RBC 3.54 L, Hgb 8.0 L, Hct 26.6 L, MCV 75.1 L, MCH 22.6 L, MCHC 30.1 L, RDW 15.2, Plt Count 240, MPV 9.2, Neut % (Auto) 84.1 H, Lymph % (Auto) 10.9, [place] % (Auto) 4.0, Eos % (Auto) 0.1, Baso % (Auto) 0.2, Neut # (Auto) 9.0 H, Lymph # (Auto) 1.2, [place] # (Auto) 0.4, Eos # (Auto) 0.0, Baso # (Auto) 0.0, Sodium 137, Potassium 2.3 L*, Chloride 108 H, Carbon Dioxide 21 L, Anion Gap 10.3, BUN 10 D, Creatinine 0.60 L D, Estimated Creat Clear 50, Estimated GFR 132, Est GFR ( Amer) 160 D, Glucose 121 H D, Calcium 8.2 L , Magnesium 1.6 D, Total Bilirubin 0.5, AST 19 D, ALT 8 L, Alkaline Phosphatase 102, Total Protein 5.8 L, Albumin 2.5 L, Globulin 3.3 H, Albumin/Globulin Ratio 0.8 L I & O for Labs for Last 24 Hours: Intake & Output 02/16/25 02/17/25 02/18/25 02/19/25 23:59 23:59 23:59 23:59 Intake Total 1810 / 1860 290 / 290 Output Total 750 / 750 775 / 775 200 / 200 Balance -750 / 40 1035 / 1085 90 / 90 Weight 52.027 kg 52.617 kg 52.617 kg Microbiology Reports for the Last 24 Hours: Microbiology 02/17/25 09:58 Blood Blood Culture - Preliminary NO GROWTH AFTER 48 HOURS 02/17/25 10:06 Blood Blood Culture - Preliminary NO GROWTH AFTER 48 HOURS 02/17/25 12:24 Urine,Catheterized Urine Culture - Final Constitutional: Present no acute distress, cachectic, chronically ill appearing and cooperative Head: Present atraumatic and normocephalic ENT: Present normal exam Neck: Present normal inspection Respiratory: Present normal respiratory effort; Absent rhonchi, 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 Cardiac: Present Reg Rate and Rhythm GI: Present soft, distention, tenderness (Nonfocal in left abdomen) and normal bowel sounds Comments:: Liquid stool output from ostomy Extremities: Present normal inspection and full ROM Skin: Present intact; Absent erythema Neuro: Present Grossly Intact, alert, awake, oriented x 3 and moves all extremities Assessment and Plan *Assessment and plan (1) Sepsis: Status: Acute Category: Medical Code(s): A41.9 - Sepsis, unspecified organism (2) COVID-19: Status: Acute Category: Medical Code(s): U07.1 - COVID-19 (3) Adenocarcinoma of rectum: Status: Acute Category: Medical Code(s): C20 - Malignant neoplasm of rectum (4) Dilatation of colon: Status: Acute Category: Medical Code(s): K59.39 - Other megacolon (5) [place]-vesical fistula: Status: Acute Category: Medical Code(s): N32.1 - Vesicointestinal fistula (6) Hypokalemia: Status: Acute Category: Medical Code(s): E87.6 - Hypokalemia (7) Rodriguez catheter in place on admission: Status: Acute Category: Medical Code(s): Z97.8 - Presence of other specified devices Plan 74-year-old male with advanced adenocarcinoma of the rectum. 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 Not a surgical candidate. Admitted for hospice eval and further management of his sepsis and electrolyte disturbances. Continues to require inpatient management. Anticipate discharge to nursing facility under hospice care on Thursday. Problems addressed as follows: #Sepsis without septic shock # COVID-19 Meets criteria for leukocytosis and tachycardia. Possible urinalysis as source given chronic Rodriguez catheter. Also has dilated colon, cannot rule out colon infection Continue broad-spectrum antibiotics with vancomycin and Zosyn 3.375 g every 6 hours. Blood and urine cultures negative at 48 hours White count normal at 10.7 today. Hemoglobin 8. Stable on room air. No specific treatment for COVID at this time #Adenocarcinoma of the rectum #Dilation of the colon #Colovesicular fistula Complicated surgical candidate but per [facility], does not meet surgical criteria at this time. Likely benefit from salvage MIKAYLA or flex sigmoidoscopy for decompression. After speaking with patient, he states that he is open to the idea of hospice understanding his disease progression. Hospice consulted on 02/18. Recommend admission to care home under their care. Referral sent to nursing facility, when patient's positive COVID status, will discharge Thursday Monitor ostomy output Continue morphine 2 mg IV every 4 hours as needed for breakthrough pain. Monitor for toxicity. Continue pantoprazole 40 mg nightly Continue tamsulosin 0.8 mg nightly Continue home theophylline 300 mg daily Hypokalemia: Replacing per protocol. Severely low this morning at 2.3. Repeat CBC, CMP, magnesium ordered for the morning DNR
[2025-02-19 11:52] VITALS: BP 160/70; PULSE 110; RESP 17; TEMP 36.6; O2SAT 95
[2025-02-19] MEDS: VANCOMYCIN HCL 750 MG in 0.9 % SODIUM CHLORIDE 250 ML 125 MG IV (12:19)
[2025-02-19 16:00] VITALS: BP 161/77; PULSE 107; RESP 18; TEMP 36.6; O2SAT 95
--- NOTE | 2025-02-19 16:50 | PC.NURSE ---
No changes during the day. Receiving iv abx and awaiting a bed with hospice at [place].
[2025-02-19 20:00] VITALS: BP 144/66; PULSE 106; RESP 16; TEMP 36.9; O2SAT 92
[2025-02-19] MEDS: PANTOPRAZOLE 40MG TABLET 40 MG PO (21:12)
[2025-02-19] MEDS: TAMSULOSIN 0.4MG CAPSULE 0.8 MG PO (21:12)
[2025-02-19] MEDS: ACETAMINOPHEN 325MG TAB 650 MG PO (21:29)
[2025-02-20] MEDS: MORPHINE 2MG/ML SYRINGE 2 MG IV ×2 (02:44→14:33)
--- NOTE | 2025-02-20 02:53 | EXP.EVENT.NO ---
Received phone call from floor about the patient. Patient woke up having severe left lower quadrant pain. Morphine was given without effect. Will add low-dose Dilaudid at this point in time to reevaluate if there is comfort will repeat if needed. Patient's condition is nonoperable. Plans for comfort care and affect. 04:30 received phone call back that the patient is now sleeping.. Oxygen saturations are dropping nurse has started oxygen on him. Also slightly rattling in the lungs.. With his history of COVID we will give 1 dose of steroid IV. Also will start DuoNebs on a as needed basis. Also have added lorazepam if the patient has anxiety or any agitation. Plan at this time is to keep the patient comfortable, and hopefully he will be able to rest and stay asleep for a while. 04:50 went to check on the patient nurse was coming out of the room patient had woke up. Told the nurse that his pain level was 3 out of 10. Will continue to try to monitor to adjust if oxygen saturations continue to decrease. Patient did sign paperwork for DNR/DNI. Plan continues to be able to move him to another facility for hospice care in the a.m. or as as soon as practical
[2025-02-20] MEDS: HYDROMORPHONE 2MG/ML SYRINGE 0.5 MG IV ×3 (03:04→05:24)
[2025-02-20] MEDS: KETOROLAC 30MG/ML VIAL 15 MG IV (03:43)
[2025-02-20 04:00] VITALS: BP 124/57; PULSE 112; RESP 36; TEMP 37.1; O2SAT 80; BMI 21.3
[2025-02-20 04:11] VITALS: BP 120/53; PULSE 122; RESP 40; TEMP 37.3; O2SAT 85
[2025-02-20 04:35] VITALS: BP 105/55; PULSE 132; RESP 40; O2SAT 85
[2025-02-20] MEDS: METHYLPREDNISOLONE SOD SUCC 125MG VIAL 125 MG IV (04:53)
[2025-02-20] MEDS: PIPERCILLIN/TAZO 3.375 GM in 0.9 % SODIUM CHLORIDE 50 ML IV ×3 (05:15→17:30)
[2025-02-20] MEDS: IPRATROPIUM/ALBUTEROL 3 ML NEB IH ×2 (05:30→14:33)
[2025-02-20 05:32] VITALS: PULSE 87; PULSE 88
--- NOTE | 2025-02-20 07:20 | CARE MANAGER ---
Patient has been seen by Hospice. Referral faxed to [place]. He will be a private pay. Plan is for discharge to [facility] on Thursday (due to Covid +) with Hospice.
--- NOTE | 2025-02-20 07:23 | P.PN_ITS ---
Subjective *Date: 02/20/25 *Time: 12:02 Interval history: Overnight developed worsening abdominal pain acutely, mainly in left hemiabdomen. This morning does not want to move in bed, states he is comfortable as long as he is still. Required increased opiate regimen with Dilaudid overnight. Necessitating 4 L oxygen today. Appears ill. Denies nausea or vomiting. Denies raina chest pain. Is more tachycardic today. Strong concern for abrupt change in possibility of perforation or rupture of his distal blind loop of colon Medical Exam Vital signs and Labs for Last 24 Hours: Vital Signs Temp Pulse Pulse Resp BP Pulse Ox O2 Del Method 02/20/25 05:32 88 02/20/25 05:32 87 02/20/25 04:35 132 H 40 H 105/55 L 85 L Nasal Cannula 02/20/25 04:11 99.2 F 122 H 40 H 120/53 L 85 L Nasal Cannula 02/20/25 04:00 98.8 F 112 H 36 H 124/57 L 80 L Room Air 02/20/25 03:00 Room Air 02/20/25 01:00 Room Air 02/19/25 23:00 Room Air 02/19/25 21:00 Room Air 02/19/25 20:00 Room Air 02/19/25 20:00 98.5 F 106 H 16 144/66 H 92 L Room Air 02/19/25 19:00 Room Air 02/19/25 16:10 Room Air 02/19/25 16:00 97.9 F 107 H 18 161/77 H 95 Room Air 02/19/25 14:35 Room Air 02/19/25 11:52 97.8 F 110 H 17 160/70 H 95 Room Air 02/19/25 11:47 Room Air 02/19/25 09:51 Room Air 02/19/25 08:35 Room Air 02/19/25 08:00 97.7 F 107 H 15 138/76 93 L Room Air 02/19/25 07:45 Room Air O2 Flow Rate 02/20/25 05:32 02/20/25 05:32 02/20/25 04:35 4 02/20/25 04:11 4 02/20/25 04:00 02/20/25 03:00 02/20/25 01:00 02/19/25 23:00 02/19/25 21:00 02/19/25 20:00 02/19/25 20:00 02/19/25 19:00 02/19/25 16:10 02/19/25 16:00 02/19/25 14:35 02/19/25 11:52 02/19/25 11:47 02/19/25 09:51 02/19/25 08:35 02/19/25 08:00 02/19/25 07:45 Intake and Output 02/19/25 02/19/25 02/20/25 15:59 23:59 07:59 Intake Total 960 / 1060 50 / 50 Output Total 370 / 1070 500 / 1070 0 / 0 Balance 590 / -10 -500 / -10 50 / 50 Intake: Intake, Oral Amount 560 / 560 Intake, Total IV Amount 400 / 500 50 / 50 Magnesium Sulfate in Water 2 gm 100 / 100 In 50 ml @ 50 mls/hr IV Q1H [facility] Rx#:[id number] Pipercillin/Tazo 3.375 gm In 0. 50 / 150 50 / 50 9 % Sodium Chloride 50 ml @ 100 mls/hr IV Q6H [facility] Rx#:[id number] Vancomycin HCl 750 mg In 0.9 % 250 / 250 Sodium Chloride 250 ml @ 125 mls/hr IV Q24H [facility] Rx#:[id number] Output: Output, Urine Amount 400 / 600 0 / 0 Output, Stool Amount 270 / 370 100 / 370 Output, Emesis Amount 100 / 100 Other: Number of Unmeasured Voids 0 0 Number of Bowel Movements 1 Weight 52.61 kg Patient Weight 02/20/25 23:59 Weight 52.61 kg Laboratory Results - last 24 hr 02/19/25 07:42: WBC 10.7, RBC 3.54 L, Hgb 8.0 L, Hct 26.6 L, MCV 75.1 L, MCH 22.6 L, MCHC 30.1 L, RDW 15.2, Plt Count 240, MPV 9.2, Neut % (Auto) 84.1 H, Lymph % (Auto) 10.9, [place] % (Auto) 4.0, Eos % (Auto) 0.1, Baso % (Auto) 0.2, Neut # (Auto) 9.0 H, Lymph # (Auto) 1.2, [place] # (Auto) 0.4, Eos # (Auto) 0.0, Baso # (Auto) 0.0, Sodium 137, Potassium 2.3 L*, Chloride 108 H, Carbon Dioxide 21 L, Anion Gap 10.3, BUN 10 D, Creatinine 0.60 L D, Estimated Creat Clear 50, Estimated GFR 132, Est GFR ( Amer) 160 D, Glucose 121 H D, Calcium 8.2 L , Magnesium 1.6 D, Total Bilirubin 0.5, AST 19 D, ALT 8 L, Alkaline Phosphatase 102, Total Protein 5.8 L, Albumin 2.5 L, Globulin 3.3 H, Albumin/Globulin Ratio 0.8 L I & O for Labs for Last 24 Hours: Intake & Output 02/17/25 02/18/25 02/19/25 02/20/25 23:59 23:59 23:59 23:59 Intake Total 1810 / 1860 1010 / 1060 50 / 50 Output Total 750 / 750 775 / 775 1070 / 1070 0 / 0 Balance -750 / 40 1035 / 1085 -60 / -10 50 / 50 Weight 52.027 kg 52.617 kg 52.617 kg 52.61 kg Microbiology Reports for the Last 24 Hours: Microbiology 02/17/25 09:58 Blood Blood Culture - Preliminary NO GROWTH AFTER 48 HOURS 02/17/25 10:06 Blood Blood Culture - Preliminary NO GROWTH AFTER 48 HOURS 02/17/25 12:24 Urine,Catheterized Urine Culture - Final Constitutional: Present moderate distress, cachectic, chronically ill appearing and cooperative Head: Present atraumatic and normocephalic ENT: Present normal exam Neck: Present normal inspection Respiratory: Present normal respiratory effort; Absent rhonchi, wheezes or crackles Cardiac: Present Regular Rhythm and Tachycardia GI: Present soft, distention, tenderness (Significant increase in left hemiabdomen), guarding and normal bowel sounds; Absent rebound Comments:: Liquid stool output from ostomy Extremities: Present normal inspection and full ROM Skin: Present intact; Absent erythema Neuro: Present Grossly Intact, alert, awake, oriented x 3 and moves all extremities Assessment and Plan *Assessment and plan (1) Sepsis: Status: Acute Category: Medical Code(s): A41.9 - Sepsis, unspecified organism (2) COVID-19: Status: Acute Category: Medical Code(s): U07.1 - COVID-19 (3) Adenocarcinoma of rectum: Status: Acute Category: Medical Code(s): C20 - Malignant neoplasm of rectum (4) Dilatation of colon: Status: Acute Category: Medical Code(s): K59.39 - Other megacolon (5) [place]-vesical fistula: Status: Acute Category: Medical Code(s): N32.1 - Vesicointestinal fistula (6) Hypokalemia: Status: Acute Category: Medical Code(s): E87.6 - Hypokalemia (7) Rodriguez catheter in place on admission: Status: Acute Category: Medical Code(s): Z97.8 - Presence of other specified devices Plan 74-year-old male with advanced adenocarcinoma of the rectum. 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 Not a surgical candidate. Admitted for hospice eval and further management of his sepsis and electrolyte disturbances. Continues to require inpatient management. Anticipate discharge to nursing facility under hospice care vs inpatient hospice pending patient's progression over the next 24 to 48 hours on Thursday. Problems addressed as follows: #Sepsis without septic shock # COVID-19 Meets criteria for leukocytosis and tachycardia. Possible urinalysis as source given chronic Rodriguez catheter. Also has dilated colon, cannot rule out colon infection Continue broad-spectrum antibiotics with vancomycin and Zosyn 3.375 g every 6 hours. Blood and urine cultures negative at 48 hours Increased oxygen requirement overnight with acute onset of pain in his abdomen. Currently on 4 L. #Adenocarcinoma of the rectum #Dilation of the colon #Colovesicular fistula Complicated surgical candidate but per [facility], does not meet surgical criteria at this time. Likely benefit from salvage MIKAYLA or flex sigmoidoscopy for decompression. After speaking with patient, he states that he is open to the idea of hospice understanding his disease progression. Hospice consulted on 02/18. Recommend admission to shelter under their care. Referral sent to nursing facility, when patient's positive COVID status, will discharge Thursday Given his acute change in his abdomen, discussed obtaining CT today with patient. He deferred, asked if we could consider tomorrow. Strong concern he might have perforation or leak of his bowel loop. At this time we will focus on symptom management. Continue antibiotics. Continue pain control. Reevaluate CT in the morning. Monitor ostomy output Transition to Dilaudid 0.5 mg as needed every 2 hours for severe breakthrough pain. Monitoring for toxicity. Monitor for toxicity. Continue pantoprazole 40 mg nightly Continue tamsulosin 0.8 mg nightly Continue home theophylline 300 mg daily Hypokalemia: Refued labs today repeat cbc, cmp, mg ordered for the morning DNR Lovenox 40 mg subcu daily
--- NOTE | 2025-02-20 07:35 | PC.NURSE ---
Pt declines labs this AM.
[2025-02-20 07:36] VITALS: BP 109/58; PULSE 115; RESP 24; TEMP 36.3; O2SAT 92
--- NOTE | 2025-02-20 07:39 | PC.NURSE ---
Pt. is aleert and orientated x 4. Pt. has rectal CA and ureosepsis. Pt. on Hospice care. Pt. awoke around 0230 and was having severe LLQ pain. Pt. was medicated with Morphine with minimal response to the pain. Everardo Hector APRN notified and Dilaudid was ordered. Dilaudid was administerd with minimal relief of pain. Everardo Hector APRN notified again. Dialudid and Toradol ordered. Pt. had signifcant relief of pain from 8 to 3. Pt. was resting.Vital signs taken Oxygen sats 80% on room air. Pt. placed on 4 liters O2 per N/C. Blood pressure 124/57, HR 108-120, RR 36-40, Temp 98.8 ax. Pt. given steroid medication. Pt. very congested and coughing. Lung sounds with crackles to bases. Dueoneb given per RT. Pt pain went up to 5 and he was moaning and holding LLQ. Pt. medicated again with Dilaudid. Pt. than fell asleep. Skin pale and diaphoretic when pain started. After asleep still pale but skin dry. Pt. has a bed at [place] when he is able to be transferred. Personal items and call carpenter in reach.
--- NOTE | 2025-02-20 07:53 | P.PN_ITS ---
Subjective *Date: 02/20/25 *Time: 07:53 Medical Exam Vital signs and Labs for Last 24 Hours: Vital Signs Temp Pulse Pulse Resp BP Pulse Ox O2 Del Method 02/20/25 07:36 97.3 F L 115 H 24 109/58 L 92 L Nasal Cannula 02/20/25 07:00 Nasal Cannula 02/20/25 05:32 88 02/20/25 05:32 87 02/20/25 05:00 Nasal Cannula 02/20/25 04:35 132 H 40 H 105/55 L 85 L Nasal Cannula 02/20/25 04:11 99.2 F 122 H 40 H 120/53 L 85 L Nasal Cannula 02/20/25 04:00 98.8 F 112 H 36 H 124/57 L 80 L Room Air 02/20/25 03:00 Room Air 02/20/25 01:00 Room Air 02/19/25 23:00 Room Air 02/19/25 21:00 Room Air 02/19/25 20:00 Room Air 02/19/25 20:00 98.5 F 106 H 16 144/66 H 92 L Room Air 02/19/25 19:00 Room Air 02/19/25 16:10 Room Air 02/19/25 16:00 97.9 F 107 H 18 161/77 H 95 Room Air 02/19/25 14:35 Room Air 02/19/25 11:52 97.8 F 110 H 17 160/70 H 95 Room Air 02/19/25 11:47 Room Air 02/19/25 09:51 Room Air 02/19/25 08:35 Room Air 02/19/25 08:00 97.7 F 107 H 15 138/76 93 L Room Air O2 Flow Rate 02/20/25 07:36 4 02/20/25 07:00 4 02/20/25 05:32 02/20/25 05:32 02/20/25 05:00 4 02/20/25 04:35 4 02/20/25 04:11 4 02/20/25 04:00 02/20/25 03:00 02/20/25 01:00 02/19/25 23:00 02/19/25 21:00 02/19/25 20:00 02/19/25 20:00 02/19/25 19:00 02/19/25 16:10 02/19/25 16:00 02/19/25 14:35 02/19/25 11:52 02/19/25 11:47 02/19/25 09:51 02/19/25 08:35 02/19/25 08:00 Intake and Output 02/19/25 02/19/25 02/20/25 15:59 23:59 07:59 Intake Total 960 / 1060 50 / 50 Output Total 370 / 1070 500 / 1070 0 / 0 Balance 590 / -10 -500 / -10 50 / 50 Intake: Intake, Oral Amount 560 / 560 Intake, Total IV Amount 400 / 500 50 / 50 Magnesium Sulfate in Water 2 gm 100 / 100 In 50 ml @ 50 mls/hr IV Q1H [facility] Rx#:[id number] Pipercillin/Tazo 3.375 gm In 0. 50 / 150 50 / 50 9 % Sodium Chloride 50 ml @ 100 mls/hr IV Q6H [facility] Rx#:[id number] Vancomycin HCl 750 mg In 0.9 % 250 / 250 Sodium Chloride 250 ml @ 125 mls/hr IV Q24H [facility] Rx#:[id number] Output: Output, Urine Amount 400 / 600 0 / 0 Output, Stool Amount 270 / 370 100 / 370 Output, Emesis Amount 100 / 100 Other: Number of Unmeasured Voids 0 0 Number of Bowel Movements 1 Weight 52.61 kg Patient Weight 02/20/25 23:59 Weight 52.61 kg Laboratory Results - last 24 hr 02/19/25 07:42: WBC 10.7, RBC 3.54 L, Hgb 8.0 L, Hct 26.6 L, MCV 75.1 L, MCH 22.6 L, MCHC 30.1 L, RDW 15.2, Plt Count 240, MPV 9.2, Neut % (Auto) 84.1 H, Lymph % (Auto) 10.9, [place] % (Auto) 4.0, Eos % (Auto) 0.1, Baso % (Auto) 0.2, Neut # (Auto) 9.0 H, Lymph # (Auto) 1.2, [place] # (Auto) 0.4, Eos # (Auto) 0.0, Baso # (Auto) 0.0, Sodium 137, Potassium 2.3 L*, Chloride 108 H, Carbon Dioxide 21 L, Anion Gap 10.3, BUN 10 D, Creatinine 0.60 L D, Estimated Creat Clear 50, Estimated GFR 132, Est GFR ( Amer) 160 D, Glucose 121 H D, Calcium 8.2 L , Magnesium 1.6 D, Total Bilirubin 0.5, AST 19 D, ALT 8 L, Alkaline Phosphatase 102, Total Protein 5.8 L, Albumin 2.5 L, Globulin 3.3 H, Albumin/Globulin Ratio 0.8 L I & O for Labs for Last 24 Hours: Intake & Output 02/17/25 02/18/25 02/19/25 02/20/25 23:59 23:59 23:59 23:59 Intake Total 1810 / 1860 1010 / 1060 50 / 50 Output Total 750 / 750 775 / 775 1070 / 1070 0 / 0 Balance -750 / 40 1035 / 1085 -60 / -10 50 50 Weight 52.027 kg 52.617 kg 52.617 kg 52.61 kg Microbiology Reports for the Last 24 Hours: Microbiology 02/17/25 09:58 Blood Blood Culture - Preliminary NO GROWTH AFTER 48 HOURS 02/17/25 10:06 Blood Blood Culture - Preliminary NO GROWTH AFTER 48 HOURS 02/17/25 12:24 Urine,Catheterized Urine Culture - Final The patient's infection will respond to the chosen ABx?: Yes (blood and urine cultures no growth at 48 hrs, afebrile over 24 hrs) Is the patient receiving the right drug, dose, and route?: Yes Could a more targeted ABx be ordered?: No
[2025-02-20] MEDS: LISINOPRIL 20MG TABLET 20 MG PO (09:00)
[2025-02-20] MEDS: POTASSIUM CHLORIDE 20MEQ TAB 40 MEQ PO (09:00)
[2025-02-20 09:20] VITALS: BMI 21.3
--- NOTE | 2025-02-20 10:23 | HMH.ITSTN ---
WENT UP TO GET PATIENT FOR CT, PT STATED HE WAS COMFORTABLE AND NOT HAVING PAIN AT THIS TIME AND DID NOT WANT TO BE MOVED FOR TEST. NURSE LISE NOTIFIED.
--- NOTE | 2025-02-20 11:25 | PC.NURSE ---
Pt has agreed to lab draw. Lab notified.
[2025-02-20] MEDS: PHA TO NURSING INSTRUCTION 1 EACH NOTAPPLIC (11:37)
[2025-02-20] MEDS: ACETAMINOPHEN 325MG TAB 650 MG PO (11:44)
[2025-02-20 12:17] LABS: Vancomycin,Trough 5.3 ug/mL (5.0-10.0)
--- NOTE | 2025-02-20 12:20 | PC.NURSE ---
Pharmacy consulted about Vanc trough. Dose will be changed.
--- NOTE | 2025-02-20 12:32 | EXP.PHA.CONS ---
Pharmacy Consult Date: 02/20/25 Time: 12:34 Referring provider: DR MARQUEZ Reason for Consult:: VANCOMYCIN TROUGH LEVEL OBTAINED. Allergies Allergy/AdvReac Type Severity Reaction Status Date / Time No Known Allergies Allergy Verified 02/17/25 23:36 Home Medications ?Medication ?Instructions ?Recorded ?Confirmed ?Type lisinopril 20 mg tablet 20 mg PO DAILY 04/27/19 02/18/25 History omeprazole 20 mg capsule,delayed 20 mg PO DAILY 04/27/19 02/18/25 History release simvastatin 40 mg tablet 40 mg PO HS 04/27/19 02/18/25 History theophylline 300 mg 300 mg PO DAILY 04/27/19 02/18/25 History tablet,extended release,12 hr tamsulosin 0.4 mg capsule 0.8 mg PO HS 09/29/24 02/18/25 History carvedilol 25 mg tablet 25 mg PO DAILY 10/04/24 02/18/25 History potassium chloride 20 mEq 20 meq PO DAILY 10/04/24 02/18/25 History tablet,extended release furosemide 20 mg tablet 20 mg PO DAILY #90 tabs 12/21/24 02/18/25 Rx cefdinir 300 mg capsule 300 mg PO BID 7 days #14 caps 02/14/25 02/18/25 Rx New Prescriptions to Start Prescriptions: Height: 1.57 m Weight: 52.61 kg Laboratory Results:: Laboratory Results - last 24 hr 02/20/25 11:35: Vancomycin Trough 5.3 Medical History: Medical History (Updated 02/17/25 @ 21:07 by JANA Melendez) History of elevated PSA Rectal cancer Abscess of rectum Acute lower gastrointestinal bleeding Pelvic lymphadenopathy Colon wall thickening Urinary tract infection Hypertension Gout Cholecystectomy planned Colostomy in place Colostomy present on admission Leukocytosis Urinary retention Assessment and Plan Assessment and plan all Dx Assessment and Plan for all problems:: Pharmacokinetic dosing service Weight: 52.61 Kilograms Vancomycin single level analysis: Current dose being given: 750 mg Current dosing interval: 24 hrs Current infusion time (hrs): 2 Single level Trough Data: Trough level obtained: 5.3 mcg/ml Timing of trough - # of hrs before next dose: 0.5 Hrs Desired peak: 35 mcg/ml Desired trough: 12.5 mcg/ml Estimated PK Parameters: New rate constant (ashleigh): 0.067 hr-1 Half-life: 10.35 Hours Vd from levels: 36.83 Liters (0.7 L/kg) CLvanco=?? 2.468 L/hr Estimated New Dose and Interval Recommended dose: 948.1 mg Recommended interval: 17.4 Hrs Recommendations: Give Vancomycin 1000 mg q 18 hrs. Infuse over 2 hrs Expected Cpeak: 36.3 mcg/mL Expected Ctrough: 12.4 mcg/mL AUC 0-24 /TONNY Data: TONNY 0.5 mcg/mL:?? AUC/TONNY:? 1080.5 TONNY 1.0 mcg/mL:?? AUC/TONNY:? 540.2 Thank you for the consult
[2025-02-20] MEDS: ENOXAPARIN 40MG/0.4ML SYRINGE 40 MG SUBCUT (12:55)
[2025-02-20] MEDS: VANCOMYCIN HCL 1,000 MG in 0.9 % SODIUM CHLORIDE 250 ML 125 MG IV (13:01)
--- NOTE | 2025-02-20 15:04 | PC.NURSE ---
Pt C/O soa. RT notified for breathing treatment. New IV placed to (R) wrist after noting IV infiltrated in LUE. Some swelling noted to (L) arm. Warm blanket placed to arm and elevated on pillow. Pt denies any discomfort to extremity. Call light within reach.
[2025-02-20 16:00] VITALS: BP 97/57; PULSE 130; RESP 22; TEMP 36.2; O2SAT 88
--- NOTE | 2025-02-20 17:58 | EXP.DEATH.NO ---
Pronouncement Note Date and Time of Date of : 02/20/25 Time of : 17:54 PCOD Preliminary cause of : Septic shock Contributing Factors (1) Sepsis: (2) COVID-19: (3) Adenocarcinoma of rectum: (4) Dilatation of colon: (5) Midland-vesical fistula: (6) Hypokalemia: (7) Rodriguez catheter in place on admission: Summary Additional details: 74-year-old male with advanced adenocarcinoma of the rectum. 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 Not a surgical candidate. Admitted for hospice eval and further management of his sepsis and electrolyte disturbances. Was responding to antibiotics when on the night before his he had onset of abdominal pain and change in his hemodynamics. Patient had some good time with his son that morning and remained alert and oriented. Condition deteriorated rapidly in the afternoon. At this time I suspect that he may have had some type of rupture of his left hemicolon/blind loop given its extreme distention on initial CT. Patient declined any further imaging or labs on day of his to verify this clinical suspicion. He became hypothermic, hypotensive, and hemodynamically unstable. Decision had been made to pursue hospice prior to this and he was DNR. Fluids were administered but patient was Warmed with bear hugger and comfortable. Staff at bedside as he . Problems during his admission addressed as follows: #Sepsis initially without septic shock, went into shock shortly before his # COVID-19 Meets criteria for leukocytosis and tachycardia. Possible urine versus bacteremic as source versus abscess in his blind loop of colon given its extreme distention compared to imaging from September. Blood and urine cultures were obtained that turned out to be negative. Patient was initiated on broad-spectrum antibiotics of vancomycin however. Had improvement in his white count from 20s to normal in the 10 range. Was showing improvement until abrupt onset of left abdominal pain the night before his . Rodriguez catheter began to have raina purulent discharge as well. Patient's hemodynamics changed, he became more hypotensive, tachycardic. Began of mottling of his extremities. Patient was warmed with bear hugger and liter fluid administered. He unfortunately continued to decline and passed peacefully with staff at his bedside. #Adenocarcinoma of the rectum #Dilation of the colon #Colovesicular fistula Complicated surgical candidate but per [facility], does not meet surgical criteria at this time. Likely benefit from salvage MIKAYLA or flex sigmoidoscopy for decompression. After speaking with patient, he states that he is open to the idea of hospice understanding his disease progression. Hospice consulted on 02/18. Recommend admission to long term under their care. Due to patient's COVID status, was awaiting discharge to long term on Thursday (the day after he ). Given his acute change in his abdomen, discussed obtaining CT on morning of his passing with patient. He deferred, asked if we could consider tomorrow. Strong concern he might have perforation or leak of his bowel loop. At this time we will focus on symptom management. Continue pain control, patient was in no distress. Treated with Dilaudid 0.5 mg as needed every 2 hours for severe pain. Continue pantoprazole 40 mg nightly Continue tamsulosin 0.8 mg nightly Continue home theophylline 300 mg daily Additional Data Confirmation of : no pulse, no respirations, no heart sounds and pupils fixed and dilated Family: contacted Attending/PCP notified?: Yes Attending physician: Leroy Burger MD Was code activated?: No Autopsy should be considered if:: Unknown or unanticipated medical complications Cause is not known with certainty on clinical grounds Would allay concerns of the public/family regarding Unexplained/unexpected apparently natural and not subject to a forensic medical jurisdiction DOA Within 24 hours of admission Sustained or apparently sustained injury while in the hospital Result of high risk, infectious and contagious disease Obstetric and pediatric arising from environmental or occupational hazard Unexplained/unexpected from dental, medical, or surgical diagnostic procedures and/or therapies Would disclose a known or suspected illness which also may have a bearing on survivors or recipients of transplanted organs Autopsy requested?: No Does not meet criteria range examiner notified?: Yes Organ bank notified?: Yes Advance directives: No
--- NOTE | 2025-02-20 18:28 | PC.NURSE ---
Pt noted to have a decline in mental status. Pt's VS obtained. Color of skin noted to be mottled in areas to legs and feet. MD notified. Pt placed on NRB. Bolus ordered per MD. Son Stanley Johnson was notified of pt's decline by MD Burger. Son stated to not do aggressive care. Keep pt comfortable. TOD of pt [id number]. Baldev Angel, notified by phone. [facility] notfied. . Nuria Carpenter. Awaiting her call back.
--- NOTE | 2025-02-20 19:18 | PC.NURSE ---
Spoke with [facility] (network for help). Family declined donation. OK to release body to home. Vimal notified.
--- NOTE | 2025-02-20 19:31 | PC.NURSE ---
Contacted [facility] @ 19:30.
--- NOTE | 2025-02-20 21:09 | PC.NURSE ---
Patient left with [facility] at 20:36.
--- OUTSIDE RECORDS SUMMARY | 2025-02-23 20:19 | XMS_ITS ---
Author Organization Unknown Vital Signs BpStanding BpSitting BpSupine Date Temperature HeartRate Weight Hei ght Spo2 Respiration Bmi HeadCircumference FieldCount TimeRecorded NeckCircumferen ce WaistCircumference Pulse 172/88 06/01 00:00 :00 98.0 107,0 5,3 18.9 5 5 02/22/2025 08:00:00 128/80 05/17 00:00 :00 98.6 107,0 5,3 18.9 5 5 02/22/2025 09:00:00
== END 2025-02-20 20:36 | disposition expired ==
LOC: ER 17:24 → 2ND 18:12
PROVIDERS: Emergency Medicine; Admitting Provider Internal Medicine Adolescent Medicine; Emergency Provider Emergency Medicine; PCP Nurse Practitioner Family; Visit Provider Internal Medicine Adolescent Medicine
DX: A41.9 Sepsis, unspecified organism (principal); R65.21 Severe sepsis with septic shock; U07.1 COVID-19; C20 Malignant neoplasm of rectum; K59.39 Other megacolon; N32.1 Vesicointestinal fistula; N39.0 Urinary tract infection, site not specified; R64 Cachexia; E87.1 Hypo-osmolality and hyponatremia; E87.6 Hypokalemia; Z97.8 Presence of other specified devices; Z91.199 Patient's noncompliance with other medical treatment and regimen due to unspecified reason; Z74.1 Need for assistance with personal care; Z60.2 Problems related to living alone; Z87.891 Personal history of nicotine dependence; Z66 Do not resuscitate; Z51.5 Encounter for palliative care; R53.1 Weakness; R42 Dizziness and giddiness; Z93.3 Colostomy status; R10.32 Left lower quadrant pain; M10.9 Gout, unspecified; I10 Essential (primary) hypertension; E78.5 Hyperlipidemia, unspecified; D72.829 Elevated white blood cell count, unspecified; E87.8 Other disorders of electrolyte and fluid balance, not elsewhere classified; R00.0 Tachycardia, unspecified; R59.1 Generalized enlarged lymph nodes; J44.9 Chronic obstructive pulmonary disease, unspecified; Z68.21 Body mass index [BMI] 21.0-21.9, adult; R19.09 Other intra-abdominal and pelvic swelling, mass and lump; Z79.2 Long term (current) use of antibiotics; Z79.899 Other long term (current) drug therapy; D63.0 Anemia in neoplastic disease
CPT/HCPCS: 36415; 71045; 71275; 74177; 80053; 80202; 81001; 83605; 83735; 83880; 84100; 84436; 84443; 84484; 85007; 85025; 85378; 85610; 85730; 86140; 87040; 87086; 87636; 93005; 94640; 99291; J0131; J1171; J1650; J1885; J2270; J2405; J2543; J2919; J3370; J3475; J7030; J7050; J7620; Q9967